=== PATIENT | female | born 1940 | race Caucasian/White ===

== ENCOUNTER → 2016-09-26 | Outpatient (CLI) | payer MEDICARE ==
--- NOTE | 2016-09-26 10:27 | US ---
EXAMINATION TYPE: US pelvis complete transvag DATE OF EXAM: 09/26/2016 9:58 AM COMPARISON: CT abdomen pelvis 09/17/2015 CLINICAL HISTORY: tummy tuck 2011, pt loss 150 lbs, constipation TECHNIQUE: Transvaginal (TV) and Transabdominal (TA) Date of LMP: pt age 76 years ago, no EXAM MEASUREMENTS: Uterus: 5.7 x 5.0 x 3.9 cm Endometrial Stripe: 0.3 cm Right Ovary: 1.6 x 1.3 x 1.2 cm Left Ovary: not seen FINDINGS: 1. Uterus: large calcified mass left side , pedunculated fibroid or left adnexal mass 2.5 x 2.1 x 3.2 cm vascular 2. Endometrium: porions seen wnl 3. Right Ovary: wnl 4. Left Ovary: pedunculated fibroid or left adnexal mass 2.5 x 2.1 x 3.2 cm vascular 5. Bilateral Adnexa: rt wnl, left see above 6. Posterior cul-de-sac: 2.3 cm IMPRESSION: 1. Leiomyomatous change of the uterus. 2. Calcified mass in the region of the left adnexa is felt to reflect a partially calcified fibroid.
--- NOTE | 2016-09-26 10:36 | US ---
EXAMINATION TYPE: US abdomen complete DATE OF EXAM: 09/26/2016 10:09 AM COMPARISON: in PACS prior renal CLINICAL HISTORY: tummy tuck 2012. Pt loss 150 lbs naturally, constipation mid abd pain EXAM MEASUREMENTS: Liver Length: 14.4 cm Gallbladder Wall: surgically removed CBD: 0.3 cm Spleen: 7.0 cm Right Kidney: 9.3 x 4.5 x 4.6 cm Left Kidney: 10.0 x 5.5 x 4.1 cm bladder: marian jets seen post void wnl ANATOMY: TECHNOLOGIST IMPRESSION: overlying bowel gas Pancreas: overlying bowel gas , not seen Liver: portions seen wnl Gallbladder: surgically removed Evidence for sonographic Hernandez's sign: surgically removed CBD:wnl Spleen: wnl Right Kidney: no hydro seen small calculi 0.6 cm , 0.7 cm Left Kidney: no hydro seen, small calculi , 0.8 cm, 0.7 cm Upper IVC: overlying bowel gas portion seen wnl Abd Aorta: overlying bowel gas , not seen The liver is homogenous. The intrahepatic portion of the IVC and proximal abdominal aorta are within normal limits. The gallbladder is surgically absent . Common bile duct is unremarkable. The visua lized portions of the pancreas are homogenous. The spleen is unremarkable. Kidneys are symmetric an d free of hydronephrosis. No renal lesions are seen. Small bilateral renal calculi. IMPRESSION: 1. Small bilateral renal calculi without obstructive change
== END | disposition home or self-care (01) ==
LOC: RADUSWWP 09:16
PROVIDERS: ATTEND Family Medicine
DX: D25.9 Leiomyoma of uterus, unspecified (principal); N20.0 Calculus of kidney
CPT/HCPCS: 76700; 76830; 76856

== ENCOUNTER → 2016-10-18 | Outpatient (CLI) | payer MEDICARE ==
--- NOTE | 2016-10-19 11:15 | MM ---
Reason for exam: screening (asymptomatic). Last mammogram was performed 1 year and 1 month ago. History: Patient is postmenopausal, history of other cancer, and is nulliparous. Benign right mammotome panel of the right breast, August 14, 2011. Benign excisional biopsy of the left breast, 1980. Taking estrogen for 20 years beginning at age 51. Physical Findings: A clinical breast exam by your physician is recommended on an annual basis and results should be correlated with mammographic findings. MG 3D Screening Mammo W/Cad Bilateral CC and MLO view(s) were taken. Prior study comparison: September 16, 2015, bilateral MG 3d screening mammo w/cad. June 19, 2014, bilateral MG screening mammo w CAD. The breast tissue is extremely dense which could obscure a lesion on mammography. Finding: There are coarse heterogeneous, linear calcifications in the right breast, 6cm from the nipple, may be vascular. There are scattered vascular calcifications bilaterally. New finding since September 16, 2015 and June 19, 2014. ASSESSMENT: Probably benign, BI-RAD 3 RECOMMENDATION: Follow-up diagnostic mammogram of the right breast in 6 months.
== END | disposition home or self-care (01) ==
LOC: RADMAMWWP 14:46
PROVIDERS: ATTEND Family Medicine
DX: Z12.31 Encounter for screening mammogram for malignant neoplasm of breast (principal)
CPT/HCPCS: 77063; G0202

== ENCOUNTER → 2017-01-15 | Outpatient (CLI) | payer MEDICARE ==
--- NOTE | 2017-01-15 20:26 | MR ---
EXAMINATION TYPE: MR cervical spine wo con DATE OF EXAM: 01/15/2017 3:19 PM COMPARISON: NONE HISTORY: 76-year-old female CERVICAL DISK DEGENERATION, HEADACHES TECHNIQUE: Multiplanar, multisequence images of the cervical spine were acquired. FINDINGS: No craniocervical junction abnormality, predental space widening, or prevertebral soft tissue swellin g. There is reversal of the normal cervical lordosis centered at C4-C5 level but with preserved alignmen t. Moderate to advanced disc/endplate degenerative change from C4 through C7 levels with disc height los s, endplate irregularity, and disc osteophyte complex formation. Corresponding ligamentum flavum thickening and scattered uncovertebral joint and facet degenerative c hange. At C2-C3, there is left-sided facet degenerative change causing mild left neuroforaminal stenosis. No spinal canal stenosis. At C3-C4, there is bilateral facet degenerative change mildly narrowing the bilateral neuroforamina. No spinal canal stenosis. At C4-C5, there is broad-based disc osteophyte complex with ligamentum flavum thickening and uncovert ebral joint and facet degenerative change. Changes result in mild to moderate bilateral neuroforamina l stenosis with moderate spinal canal stenosis. There is abutment and flattening of both the dorsal a nd ventral cord and questionable increased cord signal only seen on the sagittal sequence. This is no t clearly confirmed on the axial sequence. Refer to sagittal image 6. At C5-C6, there is broad-based disc osteophyte complex with uncovertebral joint and facet degenerativ e change. This results in mild spinal canal stenosis with ventral abutment and flattening of the cord but no cord compression. There is moderate bilateral neuroforaminal stenosis. At C6-C7, posterior osteophytic ridging with uncovertebral joint and facet degenerative change. Talley es result in mild to moderate left and mild right neuroforaminal stenosis with mild spinal canal sten osis. At C7-T1, there is facet degenerative change without significant canal or foraminal stenosis. No prevertebral or paravertebral soft tissue abnormality seen. IMPRESSION: 1. 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 2. Combination of disc osteophyte complex and ligamentum flavum thickening causes moderate spinal can al stenosis at C4-C5 with abutment and flattening of both the dorsal and ventral cord. Questionable s light increased cord signal at this level is not clearly confirmed on the axial series. Correlate for any myelopathic symptoms. 3. Mild spinal canal stenoses at C5-C6 and C6-C7. 4. Variable mild and moderate neural foraminal stenoses as outlined above, greatest on both sides at C5-C6.
== END | disposition home or self-care (01) ==
LOC: RADMRIMAIN 14:35
PROVIDERS: ATTEND Internal Medicine Rheumatology
DX: M48.02 Spinal stenosis, cervical region (principal); M99.71 Connective tissue and disc stenosis of intervertebral foramina of cervical region; M47.812 Spondylosis without myelopathy or radiculopathy, cervical region; M24.28 Disorder of ligament, vertebrae
CPT/HCPCS: 72141

== ENCOUNTER → 2017-02-24 | Outpatient (CLI) | payer MEDICARE ==
--- NOTE | 2017-02-24 14:35 | MR ---
EXAMINATION TYPE: MR brain wo con DATE OF EXAM: 02/24/2017 COMPARISON: 08/18/2013 HISTORY: headache T1-weighted sagittal, T2, FLAIR, and diffusion axial, and T2 coronal coronal views of the brain are s ubmitted. There is no evidence of acute ischemia. [id number] degenerative change. Areas of abnormal signal involving the cate likely related to remote ischemia. Multiple and numerous areas of abnormal focal signal white matter bilaterally is again noted and alth ough nonspecific, is suggestive of remote microvascular ischemic disease. There is no mass effect. Changes of chronic sinusitis noted. Craniocervical junction maintained. Sella turcica has a normal appearance. No cerebellopontine angle mass. IMPRESSION: 1. No acute intracranial process. Degenerative and nonspecific white matter changes most typical heraclio te microvascular ischemia.
== END | disposition home or self-care (01) ==
LOC: RADMRIMAIN 13:47
PROVIDERS: ATTEND Psychiatry & Neurology Pain Medicine
DX: R90.82 White matter disease, unspecified (principal)
CPT/HCPCS: 70551

== ENCOUNTER 2017-02-25 08:51 | Emergency (ER) | payer MEDICARE ==
[2017-02-25 08:55] VITALS: TEMP 97.6
[2017-02-25] MEDS ORDERED: SODIUM CHLORIDE 0.9% 1,000 ML IV STA (10:22)
[2017-02-25] MEDS ORDERED: RX INFO: IV CONTRAST WAS GIVEN 1 EACH MISC MISCELLANE PRN (10:22)
[2017-02-25] MEDS ORDERED: MORPHINE SULFATE 4 MG/ML SYRINGE IVP STA (10:22)
--- NOTE | 2017-02-25 10:29 | ED ---
Abdominal Pain HPI - General Chief Complaint: Abdominal Pain Stated Complaint: cramping,constipated Time Seen by Provider: 02/25/17 10:14 Source: patient Mode of arrival: ambulatory Limitations: no limitations - History of Present Illness Initial Comments: Patient is a 76yo female with long history of abd pain and constipation worsening over the past week. Patient has been trying suppositories as well as stool softeners. Today she had a small hard bowel movement. Patient is having lower abdominal pain for which she is taking [place]. Patient admits to abdominal pain, constipation, dysuria. Patient denies fever or chills. Denies nausea or vomiting. - Related Data Home Medications Medication Instructions Recorded Confirmed Aspirin 81 mg PO DAILY 01/06/15 02/25/17 Butalb/Acetaminophen/Caffeine 1 tab PO BID PRN 01/06/15 02/25/17 [Fioricet 50-325-40] Dicyclomine [Bentyl] 10 mg PO QID 01/06/15 02/25/17 Folic Acid 1 mg PO DAILY 01/06/15 02/25/17 HYDROcodone/APAP 5-325MG [[place] 1 tab PO TID PRN 01/06/15 02/25/17 5-325] Hypromellose [Artificial Tears] 1 drop BOTH EYES DAILY PRN 01/06/15 02/25/17 Methotrexate Sodium [Methotrexate] 20 mg PO FR 01/06/15 02/25/17 Multivitamin/Iron/Folic Acid 1 tab PO DAILY 01/06/15 02/25/17 [Centrum Complete Multivit Tab] Omeprazole [PriLOSEC] 40 mg PO DAILY 01/06/15 02/25/17 PARoxetine [Paxil] 20 mg PO QAM 01/06/15 02/25/17 Topiramate [Topamax] 150 mg PO DAILY 01/06/15 02/25/17 Certolizumab Pegol [Cimzia] 400 mg SQ QMONTH 09/17/15 02/25/17 rOPINIRole HCL [Requip] 0.5 mg PO DAILY 09/17/15 02/25/17 Previous Rx's Medication Instructions Recorded Baclofen [Lioresal] 10 mg PO TID PRN #0 01/11/15 Allergies Allergy/AdvReac Type Severity Reaction Status Date / Time etodolac [From [facility]] Allergy Rash/Hives Verified 02/25/17 09:39 nabumetone [From Relafen] Allergy Rash/Hives Verified 02/25/17 09:39 naproxen [From Naprosyn] Allergy Rash/Hives Verified 02/25/17 09:39 NSAIDS (Non-Steroidal Allergy Unknown Verified 02/25/17 09:39 Anti-Inflamma Review of Systems ROS Statement: Those systems with pertinent positive or pertinent negative responses have been documented in the HPI. Constitutional: No fever and no chills. HENT: No congestion, no rhinorrhea and no sore throat. Eyes: No discharge and no redness. Respiratory: No cough and no shortness of breath. Cardiovascular: No chest pain and no palpitations. Gastrointestinal: No nausea, no vomiting, +abdominal pain, + constipation and no diarrhea. Genitourinary: +dysuria and no hematuria. Musculoskeletal: No back pain and no arthralgias. Skin: No pallor and no rash. Neurological: No dizziness and No headaches. ROS Other: All systems not noted in ROS Statement are negative. Past Medical History Past Medical History: Osteoarthritis (OA), Pneumonia, Rheumatoid Arthritis (RA) Additional Past Medical History / Comment(s): 09/17/15 Pt presented to [facility] ER with abdominal pain which has been going on for several months and being investigated. Abdomonal jaylin got worse last nite and woke her up. She also has mild nausea. Her last BM was yesterday and she is constipated. She is admitted with clinical impression of calculus of the kidney, SBO, pancreatic mass. Other HX: 01/05/15 admitted to [facility] with pericardial effusions- possible pleurisy-possible pneumonia, admitted to [facility] 02/26/14 with acute abdominal pain-2ndary to possible gallstone pancreatitis-SBO, IBS, RESTLESS LEG SYNDROME, stress headaches (none recently with medication), UTIs, pt states she had a staph infection in her blood in 1999 but does not know if it was MRSA. History of Any Multi-Drug Resistant Organisms: Unobtainable Past Surgical History: Cholecystectomy, Joint Replacement, Orthopedic Surgery Additional Past Surgical History / Comment(s): Additional Surgical Hx: Rotator cuff (R); Ric Knee Replacement; Panniculectomy, bilateral legs varicose vein surgery, colonoscopies-normal, bilateral cataract removal. Past Anesthesia/Blood Transfusion Reactions: No Reported Reaction Additional Past Anesthesia/Blood Transfusion Reaction / Comment(s): Pt has received blood after panniculectomy without reaction. Past Psychological History: Depression Smoking Status: Never smoker Past Alcohol Use History: None Reported Past Drug Use History: None Reported - Past Family History Mother Family Medical History: Myocardial Infarction (WA) Additional Family Medical History / Comment(s): Mother at age 69 yrs after having the flu and complicated by a [place]. Father Additional Family Medical History / Comment(s): IBS. Father at age 78yrs. General Exam - General Exam Comments Initial Comments: Constitutional: Patient appears well-developed and well-nourished. No distress. Head: Normocephalic and atraumatic. Eyes: Conjunctivae and EOM are normal. Right eye exhibits no discharge. Left eye exhibits no discharge. No scleral icterus. Neck: Normal range of motion. Neck supple. Cardiovascular: Normal rate and regular rhythm. No murmur heard. Pulmonary/Chest: Effort normal and breath sounds normal. No respiratory distress. No wheezes. Abdominal: Soft. No distension. Diffuse lower abdominal tenderness. There is no rebound and no guarding. Rectal vault without impacted stool. Musculoskeletal: Normal range of motion. No edema or tenderness. Neurological: Patient alert and oriented to person, place, and time. Skin: Skin is warm and dry. Not diaphoretic. Nursing notes and vitals reviewed. Limitations: no limitations Course Vital Signs 02/25/17 02/25/17 02/25/17 08:52 10:44 12:40 Temperature 97.6 F Pulse Rate 65 59 L 67 Respiratory 18 18 16 Rate Blood Pressure 130/62 150/69 127/58 O2 Sat by Pulse 99 100 96 Oximetry - Reevaluation(s) Reevaluation #1: 02/25/17 12:09 Patient is doing much better resting comfortably in bed. Abdomen remains tender in the suprapubic region. Patient updated on laboratory results. CT pending. Dr. Wilkinson calling to check on her patient. Medical Decision Making - Medical Decision Making Patient is a 76-year-old female presenting with chronic constipation and abdominal pain issues. Patient had a hard bowel movement this morning with a normal rectal exam. Abdomen was mildly tender suprapubic. CBC, BMP, magnesium , UA unremarkable. Patient saw her surgeon and number emergency department who agrees concern for opiate-induced abdominal pain/constipation. CT shows concern for hiatal hernia as well as pancreatic mass. CT report was printed out and disclosed the patient. They are aware of the pancreatic mass and will follow up outpatient. Patient surgeon Dr. Wilkinson recommends molasses enema when necessary. Prior to discharge, patient was resting comfortably in bed. Course of stay improved. Abdomen soft nontender. Denies pain. Discussed physical exam and diagnostic tests with patient. Questions answered and patient is agreeable to discharge with close follow up with Primary Care Physician. Instructed to return to Emergency Department if symptoms worsen. - Lab Data Result diagrams: 02/25/17 10:40 02/25/17 10:40 Lab Results 02/25/17 02/25/17 02/25/17 Range/Units 10:40 10:40 10:40 WBC 5.0 (3.8-10.6) k/uL RBC 3.83 (3.80-5.40) m/uL Hgb 13.0 (11.4-16.0) gm/dL Hct 39.3 (34.0-46.0) % MCV 102.6 H (80.0-100.0) fL MCH 33.9 (25.0-35.0) pg MCHC 33.1 (31.0-37.0) g/dL RDW 13.4 (11.5-15.5) % Plt Count 179 (150-450) k/uL Neutrophils % 54 % Lymphocytes % 35 % Monocytes % 5 % Eosinophils % 2 % Basophils % 1 % Neutrophils # 2.7 (1.3-7.7) k/uL Lymphocytes # 1.7 (1.0-4.8) k/uL Monocytes # 0.3 (0-1.0) k/uL Eosinophils # 0.1 (0-0.7) k/uL Basophils # 0.0 (0-0.2) k/uL Macrocytosis Slight Sodium 142 (137-145) mmol/L Potassium 4.2 (3.5-5.1) mmol/L Chloride 108 H (98-107) mmol/L Carbon Dioxide 25 (22-30) mmol/L Anion Gap 9 mmol/L BUN 22 H (7-17) mg/dL Creatinine 0.70 (0.52-1.04) mg/dL Est GFR (MDRD) Af Amer >60 (>60 ml/min/1.73 sqM) Est GFR (MDRD) Non-Af >60 (>60 ml/min/1.73 sqM) Glucose 89 (74-99) mg/dL Plasma Lactic Acid Hebert 0.9 (0.7-2.0) mmol/L Calcium 9.4 (8.4-10.2) mg/dL Magnesium 2.1 (1.6-2.3) mg/dL Urine Color Urine Appearance (Clear) Urine pH (5.0-8.0) Ur Specific [place] (1.001-1.035) Urine Protein (Negative) Urine Glucose (UA) (Negative) Urine Ketones (Negative) Urine Blood (Negative) Urine Nitrite (Negative) Urine Bilirubin (Negative) Urine Urobilinogen (<2.0) mg/dL Ur Leukocyte Esterase (Negative) Urine RBC (0-5) /hpf Urine WBC (0-5) /hpf Ur Squamous Epith Cells (0-4) /hpf Amorphous Sediment (None) /hpf 02/25/17 Range/Units 10:40 WBC (3.8-10.6) k/uL RBC (3.80-5.40) m/uL Hgb (11.4-16.0) gm/dL Hct (34.0-46.0) % MCV (80.0-100.0) fL MCH (25.0-35.0) pg MCHC (31.0-37.0) g/dL RDW (11.5-15.5) % Plt Count (150-450) k/uL Neutrophils % % Lymphocytes % % Monocytes % % Eosinophils % % Basophils % % Neutrophils # (1.3-7.7) k/uL Lymphocytes # (1.0-4.8) k/uL Monocytes # (0-1.0) k/uL Eosinophils # (0-0.7) k/uL Basophils # (0-0.2) k/uL Macrocytosis Sodium (137-145) mmol/L Potassium (3.5-5.1) mmol/L Chloride (98-107) mmol/L Carbon Dioxide (22-30) mmol/L Anion Gap mmol/L BUN (7-17) mg/dL Creatinine (0.52-1.04) mg/dL Est GFR (MDRD) Af Amer (>60 ml/min/1.73 sqM) Est GFR (MDRD) Non-Af (>60 ml/min/1.73 sqM) Glucose (74-99) mg/dL Plasma Lactic Acid Hebert (0.7-2.0) mmol/L Calcium (8.4-10.2) mg/dL Magnesium (1.6-2.3) mg/dL Urine Color Yellow Urine Appearance Clear (Clear) Urine pH 7.0 (5.0-8.0) Ur Specific [place] 1.014 (1.001-1.035) Urine Protein Negative (Negative) Urine Glucose (UA) Negative (Negative) Urine Ketones Negative (Negative) Urine Blood Negative (Negative) Urine Nitrite Negative (Negative) Urine Bilirubin Negative (Negative) Urine Urobilinogen <2.0 (<2.0) mg/dL Ur Leukocyte Esterase Trace H (Negative) Urine RBC 1 (0-5) /hpf Urine WBC 3 (0-5) /hpf Ur Squamous Epith Cells <1 (0-4) /hpf Amorphous Sediment Rare H (None) /hpf Disposition Clinical Impression: Constipation, Pancreatic mass, Abdominal pain, Hiatal hernia Disposition: HOME SELF-CARE Condition: Good Instructions: Hiatal Hernia (ED), Constipation (ED), Abdominal Pain (ED) Referrals: Martinez Chatman MD [Primary Care Provider] - 1-2 days Teodora Wilkinson MD [STAFF PHYSICIAN] - 1-2 days
[2017-02-25 10:56] LABS: Basophils % (A) 1 %; CH 34.3; CHCM 33.6; Eosinophils # (A) 0.1 k/uL (0-0.7); Eosinophils % (A) 2 %; HCT 39.3 % (34.0-46.0); HDW 2.33; Luc # (Auto) 0.16; Luc % (Auto) 3; Lymphocytes # (A) 1.7 k/uL (1.0-4.8); Lymphocytes % (A) 35 %; MCH 33.9 pg (25.0-35.0); MCHC 33.1 g/dL (31.0-37.0); MCV 102.6 fL (80.0-100.0); Macrocytosis Slight; Mean Platelet Volume 6.8; Monocytes # (A) 0.3 k/uL (0-1.0); Monocytes % (A) 5 %; Neutrophils # (A) 2.7 k/uL (1.3-7.7); Neutrophils % (A) 54 %; RBC 3.83 m/uL (3.80-5.40); RDW 13.4 % (11.5-15.5); WBC (Perox) 5.28
[2017-02-25 10:59] LABS: Amorphous Sediment,Urine Rare /hpf; Appearance,Urine Clear (Clear); Bilirubin,Urine Negative (Negative); Glucose,Urine (UA) Negative (Negative); Ketones,Urine Negative (Negative); Leukocyte Esterase,Urine Trace (Negative); Nitrite,Urine Negative (Negative); Particle Count 2702; Protein,Urine Negative (Negative); RBC,Urine 1 /hpf (0-5); Specific Gravity,Urine 1.014 (1.001-1.035); Squamous Epithelial Cell,Urine <1 /hpf (0-4); UA Billing (MACRO vs. MICRO) MICRO; Urobilinogen,Urine <2.0 mg/dL (<2.0); WBC,Urine 3 /hpf (0-5)
[2017-02-25 11:06] LABS: Anion Gap 9 mmol/L; Blood Urea Nitrogen 22 mg/dL (7-17); Calcium 9.4 mg/dL (8.4-10.2); Carbon Dioxide 25 mmol/L (22-30); Chloride 108 mmol/L (98-107); Glucose 89 mg/dL (74-99); Magnesium 2.1 mg/dL (1.6-2.3); Non-African American GFR(MDRD) >60 (>60 ml/min/1.73 sqM); Potassium 4.2 mmol/L (3.5-5.1); Sodium 142 mmol/L (137-145)
--- NOTE | 2017-02-25 13:22 | CT ---
EXAMINATION TYPE: CT abdomen pelvis w con DATE OF EXAM: 02/25/2017 COMPARISON: 09/17/2015 INDICATION: cramping, mid abd pain, constipation DLP: 411.4 mGycm, Automated exposure control for dose reduction was used. CONTRAST: 100 mL of Omnipaque 300. Study performed without Oral Contrast TECHNIQUE: Axial images were obtained from above the diaphragm to the pubic rami in the axial plane a t 5 mm thick sections. Reconstructed images are reviewed on the computer in the coronal plane. FINDINGS: Limited CT sections are obtained the lung bases. The lung bases are clear. Small hiatal hernia is p resent. CT ABDOMEN: Liver: There may be a 0.9 cm cyst in the medial right lobe liver. Liver otherwise appears unremarkabl e. Spleen: Normal Pancreas: Mid body of the pancreas appears hypodense and measures 1.7 x 3.2 cm in size. The pancreati c duct extending towards this level is dilated at 0.5 cm. Normal less than 0.2 cm at this level. Head of the pancreas appears normal. The common bile duct is prominent measuring 1.2 cm in size. There is a postcholecystectomy, normal for the common bile duct is 1.0 cm. Adrenal glands: The adrenal glands are normal. Gallbladder: Surgically absent Kidneys: No masses are evident. No hydronephrosis is present. No cysts are present. 0.4 cm calcifi cation without obstruction is in the superior medial left kidney. A punctate calcifications in the mi d lateral left kidney. There is a nonobstructing inferior pole left renal calcification measuring 0.8 cm. A nonobstructing 0.5 cm calcifications at the posterior lateral mid right kidney. Punctate calci fication at the inferior pole right kidney. Aorta: Vascular calcification is within the aorta. Inferior vena cava: Normal. CT PELVIS: Loops of bowel within the abdomen and pelvis are normal. There are loops of bowel which are incom pletely distended or lack oral contrast limiting their evaluation. Appendix: Normal as visualized. Urinary bladder: Normal. Genitourinary structures: Osseous structures: No suspicious lytic or sclerotic lesions. IMPRESSIONS: 1. Hypodense area within the body of the pancreas with some dilated distal body and proximal tail burrell creas not suggest an underlying mass. However, this was present on the comparison 09/17/2015 with possi ble mild interval growth. Workup for possible pancreatic cancer is recommended. 2. Multiple bilateral nonobstructing renal stones. 3. Small hiatal hernia.
[2017-02-25 13:28] VITALS: RESP 16
[2017-02-25 15:25] VITALS: BP 150/63; PULSE 68
--- NOTE | 2017-02-25 16:05 | P.PN ---
Progress Note - Text Patient seen and evaluated. Patient well-known to me. She has history of opiate-induced constipation. Recommend milk of molasses enemas. Additionally, alternatives for constipation treatment and literature is dispensed.
--- NOTE | 2017-02-25 21:47 | P.GSCN ---
History of Present Illness Consult date: 02/25/17 Reason for Consult: Abdominal pain Requesting physician: Elie Diana History of present illness: The patient is a 76-year-old female well-known to me who presents with history of acute on chronic abdominal pain secondary to constipation. Her is at bedside. She is having increasing bouts of diarrhea or constipation. She takes chronic narcotics for fibromyalgia and diffuse osteoarthritic pain. She has not been started on any opiate induced anticonstipation medications. She complains primarily of bilateral lower abdominal pain. She is passing flatus. No reports of abdominal distention. Secondary to the severity of her abdominal pain, she presents to emergency room. Her reports that she gets enemas regularly. The patient has also been very successful weight loss patient maintaining over 100+ pound weight loss in the past 5 years. Review of Systems CONSTITUTIONAL: Denies any fever or chills. HEENT: Denies any trouble with vision, hearing or nosebleeds. No difficulty swallowing. LYMPHATIC: The patient denies any lumps and bumps around the neck. ENDOCRINE: Denies any thyroid disorders. Denies any blood sugar glucose intolerance. RESPIRATORY: Denies recent pneumonia. Has occassional troubles with breathing or dyspnea on exertion. CARDIOVASCULAR: No acute chest pain or recent heart attacks. GASTROINTESTINAL: Has heart burn, constipation. No recent bright red blood per rectum. GENITOURINARY: Has occassional increased urinary frequency. MUSCULOSKELETAL: Has back pain, stiffness, joint arthritis. NEUROLOGIC: No seizure disorders or headaches. PSYCHIATRIC: Denies depression or suidical ideation. HEMATOLOGIC: Denies any abnormal bleeding or bruising. Past Medical History Past Medical History: Osteoarthritis (OA), Pneumonia, Rheumatoid Arthritis (RA) Additional Past Medical History / Comment(s): 09/17/15 Pt presented to [facility] ER with abdominal pain which has been going on for several months and being investigated. Abdomonal jaylin got worse last nite and woke her up. She also has mild nausea. Her last BM was yesterday and she is constipated. She is admitted with clinical impression of calculus of the kidney, SBO, pancreatic mass. Other HX: 01/05/15 admitted to [facility] with pericardial effusions- possible pleurisy-possible pneumonia, admitted to [facility] 02/26/14 with acute abdominal pain-2ndary to possible gallstone pancreatitis-SBO, IBS, RESTLESS LEG SYNDROME, stress headaches (none recently with medication), UTIs, pt states she had a staph infection in her blood in 1999 but does not know if it was MRSA. History of Any Multi-Drug Resistant Organisms: Unobtainable Past Surgical History: Cholecystectomy, Joint Replacement, Orthopedic Surgery Additional Past Surgical History / Comment(s): Additional Surgical Hx: Rotator cuff (R); Ric Knee Replacement; Panniculectomy, bilateral legs varicose vein surgery, colonoscopies-normal, bilateral cataract removal. Past Anesthesia/Blood Transfusion Reactions: No Reported Reaction Additional Past Anesthesia/Blood Transfusion Reaction / Comm: Pt has received blood after panniculectomy without reaction. Past Psychological History: Depression Smoking Status: Never smoker Past Alcohol Use History: None Reported Past Drug Use History: None Reported - Past Family History Mother Family Medical History: Myocardial Infarction ([place]) Additional Family Medical History / Comment(s): Mother at age 69 yrs after having the flu and complicated by a [place]. Father Additional Family Medical History / Comment(s): IBS. Father at age 78yrs. Medications and Allergies Home Medications Medication Instructions Recorded Confirmed Type Aspirin 81 mg PO DAILY 01/06/15 02/25/17 History Butalb/Acetaminophen/Caffeine 1 tab PO BID PRN 01/06/15 02/25/17 History [Fioricet 50-325-40] Dicyclomine [Bentyl] 10 mg PO QID 01/06/15 02/25/17 History Folic Acid 1 mg PO DAILY 01/06/15 02/25/17 History HYDROcodone/APAP 5-325MG [[place] 1 tab PO TID PRN 01/06/15 02/25/17 History 5-325] Hypromellose [Artificial Tears] 1 drop BOTH EYES DAILY PRN 01/06/15 02/25/17 History Methotrexate Sodium [Methotrexate] 20 mg PO FR 01/06/15 02/25/17 History Multivitamin/Iron/Folic Acid 1 tab PO DAILY 01/06/15 02/25/17 History [Centrum Complete Multivit Tab] Omeprazole [PriLOSEC] 40 mg PO DAILY 01/06/15 02/25/17 History PARoxetine [Paxil] 20 mg PO QAM 01/06/15 02/25/17 History Topiramate [Topamax] 150 mg PO DAILY 01/06/15 02/25/17 History Certolizumab Pegol [Cimzia] 400 mg SQ QMONTH 09/17/15 02/25/17 History rOPINIRole HCL [Requip] 0.5 mg PO DAILY 09/17/15 02/25/17 History Allergies Allergy/AdvReac Type Severity Reaction Status Date / Time etodolac [From Lodine] Allergy Rash/Hives Verified 02/25/17 09:39 nabumetone [From Relafen] Allergy Rash/Hives Verified 02/25/17 09:39 naproxen [From Naprosyn] Allergy Rash/Hives Verified 02/25/17 09:39 NSAIDS (Non-Steroidal Allergy Unknown Verified 02/25/17 09:39 Anti-Inflamma Surgical - Exam Vital Signs Temp Pulse Resp BP Pulse Ox 97.6 F 65 18 130/62 99 02/25/17 08:52 02/25/17 08:52 02/25/17 08:52 02/25/17 08:52 02/25/17 08:52 GENERAL: Well developed and in no acute distress. Pleasant. HEENT: No sclera icterus. Extraocular movements grossly intact. Moist buccal mucosa. Head is atraumatic, normocephalic. Hears conversational speech. No nasal drainage. NECK: Supple without lymphadenopathy. No JV distention. CHEST: Non-labored respirations and equal bilateral excursions. CARDIOVASCULAR: Regular rate and rhythm. Palpable 2+ radial pulses. ABDOMEN: Soft. Nondistended. Mild tenderness along the bilateral lower abdomen. No peritonitis. MUSCULOSKELETAL: No clubbing, cyanosis or edema. NEUROLOGIC: No focal or lateralizing signs. PSYCH: Appropriate affect. Alert and oriented to person, place and time. Results - Labs 02/25/17 10:40 02/25/17 10:40 Abnormal Lab Results - Last 24 Hours (Table) 02/25/17 02/25/17 02/25/17 Range/Units 10:40 10:40 10:40 MCV 102.6 H (80.0-100.0) fL Chloride 108 H (98-107) mmol/L BUN 22 H (7-17) mg/dL Ur Leukocyte Esterase Trace H (Negative) Amorphous Sediment Rare H (None) /hpf Diabetes panel 02/25/17 Range/Units 10:40 Sodium 142 (137-145) mmol/L Potassium 4.2 (3.5-5.1) mmol/L Chloride 108 H (98-107) mmol/L Carbon Dioxide 25 (22-30) mmol/L BUN 22 H (7-17) mg/dL Creatinine 0.70 (0.52-1.04) mg/dL Glucose 89 (74-99) mg/dL Calcium 9.4 (8.4-10.2) mg/dL Calcium panel 02/25/17 Range/Units 10:40 Calcium 9.4 (8.4-10.2) mg/dL Pituitary panel 02/25/17 Range/Units 10:40 Sodium 142 (137-145) mmol/L Potassium 4.2 (3.5-5.1) mmol/L Chloride 108 H (98-107) mmol/L Carbon Dioxide 25 (22-30) mmol/L BUN 22 H (7-17) mg/dL Creatinine 0.70 (0.52-1.04) mg/dL Glucose 89 (74-99) mg/dL Calcium 9.4 (8.4-10.2) mg/dL Adrenal panel 02/25/17 Range/Units 10:40 Sodium 142 (137-145) mmol/L Potassium 4.2 (3.5-5.1) mmol/L Chloride 108 H (98-107) mmol/L Carbon Dioxide 25 (22-30) mmol/L BUN 22 H (7-17) mg/dL Creatinine 0.70 (0.52-1.04) mg/dL Glucose 89 (74-99) mg/dL Calcium 9.4 (8.4-10.2) mg/dL - Imaging CT scan - abdomen: report reviewed, image reviewed CT scan - pelvis: report reviewed, image reviewed (No obstruction. No free air. ) Assessment and Plan (1) Therapeutic opioid induced constipation Status: Acute (2) Pancreatic lesion Status: Acute (3) Abdominal pain Status: Acute (4) Constipation Status: Acute Plan: 1. Clinical exam is consistent with chronic induced opiate constipation. She will best benefit from medication which can counteract this type of constipation. 2. Recommend molasses enema. 3. Instructions for her chronic constipation including medications and enemas were discussed. 4. She has findings on her computed tomography scan of her pancreas, she will need further workup as an outpatient. Time with Patient: Greater than 30
== END 2017-02-25 15:41 | disposition home or self-care (01) ==
LOC: EC 08:51
DX: K44.9 Diaphragmatic hernia without obstruction or gangrene (principal); K86.89 Other specified diseases of pancreas; K59.00 Constipation, unspecified; R30.0 Dysuria; F32.9 Major depressive disorder, single episode, unspecified; K58.9 Irritable bowel syndrome, unspecified; M06.9 Rheumatoid arthritis, unspecified; G25.81 Restless legs syndrome; Z79.82 Long term (current) use of aspirin; Z79.899 Other long term (current) drug therapy; Z88.6 Allergy status to analgesic agent; Z88.8 Allergy status to other drugs, medicaments and biological substances; Z90.49 Acquired absence of other specified parts of digestive tract
CPT/HCPCS: 99284; 96374; 96361; 36415; 80048; 83605; 83735; 85025; 81001; 87086; 74177; J2270; Q9967; 87077; 87186

== ENCOUNTER 2018-05-06 03:37 | Inpatient (IN) | payer MEDICARE ==
[2018-05-06 03:59] LABS: Glucose,Whole Blood 99 mg/dL (75-99)
[2018-05-06] MEDS ORDERED: SODIUM CHLORIDE 0.9% 500 ML IV ONE ×2 (04:02→09:44)
--- NOTE | 2018-05-06 04:05 | ED ---
General Adult HPI - General Stated complaint: weakness,hallucinations Time Seen by Provider: 05/06/18 03:45 Source: patient, family, RN notes reviewed, old records reviewed - History of Present Illness Initial comments: 78-year-old female presented for evaluation of confusion. Patient is accompanied by her who states that over the past 1-2 weeks she's had some intermittent confusion as well as an unsteady gait. She did have a fall approximately 4 days ago with head trauma. On this occasion the patient was confused, she had not slept. Today she is alert and oriented time my evaluation. Prior to arrival she had an episode where she was hallucinating or confused and thought she was having her hair cut. This was at approximately 3 AM. Denies headache. Denies focal numbness or weakness. She has had some mild lower abdominal pain. No dysuria. No fever or chills. No chest pain. No cough or difficulty breathing. - Related Data Home Medications Medication Instructions Recorded Confirmed Aspirin 81 mg PO DAILY 01/06/15 02/25/17 Butalb/Acetaminophen/Caffeine 1 tab PO BID PRN 01/06/15 02/25/17 [Fioricet 50-325-40] Dicyclomine [Bentyl] 10 mg PO QID 01/06/15 02/25/17 Folic Acid 1 mg PO DAILY 01/06/15 02/25/17 HYDROcodone/APAP 5-325MG [[place] 1 tab PO TID PRN 01/06/15 02/25/17 5-325] Hypromellose [Artificial Tears] 1 drop BOTH EYES DAILY PRN 01/06/15 02/25/17 Methotrexate Sodium [Methotrexate] 20 mg PO FR 01/06/15 02/25/17 Multivitamin/Iron/Folic Acid 1 tab PO DAILY 01/06/15 02/25/17 [Centrum Complete Multivit Tab] Omeprazole [PriLOSEC] 40 mg PO DAILY 01/06/15 02/25/17 PARoxetine [Paxil] 20 mg PO QAM 01/06/15 02/25/17 Topiramate [Topamax] 150 mg PO DAILY 01/06/15 02/25/17 Certolizumab Pegol [Cimzia] 400 mg SQ QMONTH 09/17/15 02/25/17 rOPINIRole HCL [Requip] 0.5 mg PO DAILY 09/17/15 02/25/17 Previous Rx's Medication Instructions Recorded Baclofen [Lioresal] 10 mg PO TID PRN #0 01/11/15 Allergies Allergy/AdvReac Type Severity Reaction Status Date / Time etodolac [From Lodine] Allergy Rash/Hives Verified 02/25/17 09:39 nabumetone [From Relafen] Allergy Rash/Hives Verified 02/25/17 09:39 naproxen [From Naprosyn] Allergy Rash/Hives Verified 02/25/17 09:39 NSAIDS (Non-Steroidal Allergy Unknown Verified 02/25/17 09:39 Anti-Inflamma Review of Systems ROS Statement: Those systems with pertinent positive or pertinent negative responses have been documented in the HPI. ROS Other: All systems not noted in ROS Statement are negative. Past Medical History Past Medical History: Osteoarthritis (OA), Pneumonia, Rheumatoid Arthritis (RA) Additional Past Medical History / Comment(s): 09/17/15 Pt presented to [facility] ER with abdominal pain which has been going on for several months and being investigated. Abdomonal jaylin got worse last nite and woke her up. She also has mild nausea. Her last BM was yesterday and she is constipated. She is admitted with clinical impression of calculus of the kidney, SBO, pancreatic mass. Other HX: 01/05/15 admitted to [facility] with pericardial effusions- possible pleurisy-possible pneumonia, admitted to [facility] 02/26/14 with acute abdominal pain-2ndary to possible gallstone pancreatitis-SBO, IBS, RESTLESS LEG SYNDROME, stress headaches (none recently with medication), UTIs, pt states she had a staph infection in her blood in 1999 but does not know if it was MRSA. History of Any Multi-Drug Resistant Organisms: Unobtainable Past Surgical History: Cholecystectomy, Joint Replacement, Orthopedic Surgery Additional Past Surgical History / Comment(s): Additional Surgical Hx: Rotator cuff (R); Ric Knee Replacement; Panniculectomy, bilateral legs varicose vein surgery, colonoscopies-normal, bilateral cataract removal. Past Anesthesia/Blood Transfusion Reactions: No Reported Reaction Additional Past Anesthesia/Blood Transfusion Reaction / Comment(s): Pt has received blood after panniculectomy without reaction. Past Psychological History: Depression Smoking Status: Never smoker Past Alcohol Use History: None Reported Past Drug Use History: None Reported - Past Family History Mother Family Medical History: Myocardial Infarction ([place]) Additional Family Medical History / Comment(s): Mother at age 69 yrs after having the flu and complicated by a [place]. Father Additional Family Medical History / Comment(s): IBS. Father at age 78yrs. General Exam General appearance: alert, in no apparent distress Head exam: Present: normocephalic. Absent: atraumatic (Ecchymosis on the right temporal) Eye exam: Present: normal appearance, PERRL ENT exam: Present: normal exam Neck exam: Present: normal inspection. Absent: tenderness, meningismus Respiratory exam: Present: normal lung sounds bilaterally. Absent: respiratory distress, wheezes Cardiovascular Exam: Present: regular rate, normal rhythm GI/Abdominal exam: Present: soft. Absent: distended, tenderness, guarding Extremities exam: Present: normal inspection, normal capillary refill. Absent: pedal edema Back exam: Present: normal inspection Neurological exam: Present: alert, oriented X3, CN II-XII intact, other (NIH 0) . Absent: motor sensory deficit Psychiatric exam: Present: normal affect, normal mood Skin exam: Present: warm, dry, intact. Absent: cyanosis, diaphoretic Course Vital Signs 05/06/18 05/06/18 05/06/18 03:50 04:05 04:19 Temperature 97.6 F 98.0 F 98.2 F Pulse Rate 58 L 58 L 78 Respiratory 18 14 20 Rate Blood Pressure 172/78 162/72 153/72 O2 Sat by Pulse 100 99 Oximetry 05/06/18 05/06/18 05/06/18 04:35 06:07 06:25 Temperature 97.8 F Pulse Rate 56 L 59 L 58 L Respiratory 14 18 16 Rate Blood Pressure 144/66 145/67 153/69 O2 Sat by Pulse 100 100 100 Oximetry EKG Findings - EKG Comments: EKG Findings:: EKG: Sinus bradycardia with first-degree AV block, rate of 58, FL interval 300, QRS duration 146, QTC 441, there is right bundle branch block no ST segment elevation Medical Decision Making - Medical Decision Making 78-year-old female with progressive worsening of her mental status and confusion as well as multiple falls. Workup in the emergency Department: Head CT negative for intracranial hemorrhage or mass effect. Chest x-ray negative for focal pneumonia. X-ray of the abdomen is obtained for history of constipation as well some mild suprapubic tenderness to palpation, this shows a large amount of retained stool, no intraperitoneal free air or obstruction. Laboratory studies reveal normal white blood cell count, stable hemoglobin, creatinine 1.2 from baseline of 0.8, may reflect some dehydration. Urinalysis revealing greater than 182 red cells and 32 white cells, this may represent some UTI. Urine culture is pending, patient placed on empiric antibiotics. Patient will be admitted with neurology on consult. - Lab Data Result diagrams: 05/06/18 03:51 05/06/18 03:51 Lab Results 05/06/18 05/06/18 05/06/18 Range/Units 03:51 03:51 03:51 WBC 7.0 (3.8-10.6) k/uL RBC 3.31 L (3.80-5.40) m/uL Hgb 11.3 L (11.4-16.0) gm/dL Hct 34.1 (34.0-46.0) % MCV 103.0 H (80.0-100.0) fL MCH 34.2 (25.0-35.0) pg MCHC 33.2 (31.0-37.0) g/dL RDW 13.4 (11.5-15.5) % Plt Count 177 (150-450) k/uL Neutrophils % 56 % Lymphocytes % 29 % Monocytes % 8 % Eosinophils % 4 % Basophils % 0 % Neutrophils # 3.9 (1.3-7.7) k/uL Lymphocytes # 2.0 (1.0-4.8) k/uL Monocytes # 0.6 (0-1.0) k/uL Eosinophils # 0.3 (0-0.7) k/uL Basophils # 0.0 (0-0.2) k/uL Macrocytosis Slight PT (9.0-12.0) sec INR (<1.2) APTT (22.0-30.0) sec Sample Site ABG pH (7.35-7.45) ABG pCO2 (35-45) mmHg ABG pO2 (83-108) mmHg ABG HCO3 (21-25) mmol/L ABG Total CO2 (19-24) mmol/L ABG O2 Saturation (94-97) % ABG Base Excess mmol/L Miah Test FiO2 % Sodium (137-145) mmol/L Potassium (3.5-5.1) mmol/L Chloride (98-107) mmol/L Carbon Dioxide (22-30) mmol/L Anion Gap mmol/L BUN (7-17) mg/dL Creatinine (0.52-1.04) mg/dL Est GFR (CKD-EPI)AfAm (>60 ml/min/1.73 sqM) Est GFR (CKD-EPI)NonAf (>60 ml/min/1.73 sqM) Glucose (74-99) mg/dL POC Glucose (mg/dL) 99 (75-99) mg/dL POC Glu Store Lead ID Mireille Winchester Calcium (8.4-10.2) mg/dL Total Bilirubin (0.2-1.3) mg/dL AST (14-36) U/L ALT (9-52) U/L Alkaline Phosphatase (38-126) U/L Total Creatine Kinase 71 (30-135) U/L CK-MB (CK-2) 1.3 (0.0-2.4) ng/mL CK-MB (CK-2) Rel Index 1.8 Troponin I <0.012 (0.000-0.034) ng/mL Total Protein (6.3-8.2) g/dL Albumin (3.5-5.0) g/dL Urine Color Urine Appearance (Clear) Urine pH (5.0-8.0) Ur Specific [place] (1.001-1.035) Urine Protein (Negative) Urine Glucose (UA) (Negative) Urine Ketones (Negative) Urine Blood (Negative) Urine Nitrite (Negative) Urine Bilirubin (Negative) Urine Urobilinogen (<2.0) mg/dL Ur Leukocyte Esterase (Negative) Urine RBC (0-5) /hpf Urine WBC (0-5) /hpf Hyaline Casts (0-2) /lpf 05/06/18 05/06/18 05/06/18 Range/Units 03:51 04:30 05:26 WBC (3.8-10.6) k/uL RBC (3.80-5.40) m/uL Hgb (11.4-16.0) gm/dL Hct (34.0-46.0) % MCV (80.0-100.0) fL MCH (25.0-35.0) pg MCHC (31.0-37.0) g/dL RDW (11.5-15.5) % Plt Count (150-450) k/uL Neutrophils % % Lymphocytes % % Monocytes % % Eosinophils % % Basophils % % Neutrophils # (1.3-7.7) k/uL Lymphocytes # (1.0-4.8) k/uL Monocytes # (0-1.0) k/uL Eosinophils # (0-0.7) k/uL Basophils # (0-0.2) k/uL Macrocytosis PT 10.0 (9.0-12.0) sec INR 1.0 (<1.2) APTT 21.2 L (22.0-30.0) sec Sample Site ABG pH (7.35-7.45) ABG pCO2 (35-45) mmHg ABG pO2 (83-108) mmHg ABG HCO3 (21-25) mmol/L ABG Total CO2 (19-24) mmol/L ABG O2 Saturation (94-97) % ABG Base Excess mmol/L Miah Test FiO2 % Sodium 141 (137-145) mmol/L Potassium 4.6 (3.5-5.1) mmol/L Chloride 110 H (98-107) mmol/L Carbon Dioxide 23 (22-30) mmol/L Anion Gap 8 mmol/L BUN 31 H (7-17) mg/dL Creatinine 1.20 H (0.52-1.04) mg/dL Est GFR (CKD-EPI)AfAm 51 (>60 ml/min/1.73 sqM) Est GFR (CKD-EPI)NonAf 44 (>60 ml/min/1.73 sqM) Glucose 93 (74-99) mg/dL POC Glucose (mg/dL) 95 (75-99) mg/dL POC Glu Store Lead ID Mireille Winchester Calcium 8.7 (8.4-10.2) mg/dL Total Bilirubin 0.5 (0.2-1.3) mg/dL AST 58 H (14-36) U/L ALT 43 (9-52) U/L Alkaline Phosphatase 77 (38-126) U/L Total Creatine Kinase (30-135) U/L CK-MB (CK-2) (0.0-2.4) ng/mL CK-MB (CK-2) Rel Index Troponin I (0.000-0.034) ng/mL Total Protein 6.5 (6.3-8.2) g/dL Albumin 3.7 (3.5-5.0) g/dL Urine Color Urine Appearance (Clear) Urine pH (5.0-8.0) Ur Specific [place] (1.001-1.035) Urine Protein (Negative) Urine Glucose (UA) (Negative) Urine Ketones (Negative) Urine Blood (Negative) Urine Nitrite (Negative) Urine Bilirubin (Negative) Urine Urobilinogen (<2.0) mg/dL Ur Leukocyte Esterase (Negative) Urine RBC (0-5) /hpf Urine WBC (0-5) /hpf Hyaline Casts (0-2) /lpf 05/06/18 05/06/18 Range/Units 05:32 06:00 WBC (3.8-10.6) k/uL RBC (3.80-5.40) m/uL Hgb (11.4-16.0) gm/dL Hct (34.0-46.0) % MCV (80.0-100.0) fL MCH (25.0-35.0) pg MCHC (31.0-37.0) g/dL RDW (11.5-15.5) % Plt Count (150-450) k/uL Neutrophils % % Lymphocytes % % Monocytes % % Eosinophils % % Basophils % % Neutrophils # (1.3-7.7) k/uL Lymphocytes # (1.0-4.8) k/uL Monocytes # (0-1.0) k/uL Eosinophils # (0-0.7) k/uL Basophils # (0-0.2) k/uL Macrocytosis PT (9.0-12.0) sec INR (<1.2) APTT (22.0-30.0) sec Sample Site Right Radial ABG pH 7.33 L (7.35-7.45) ABG pCO2 42 (35-45) mmHg ABG pO2 74 L (83-108) mmHg ABG HCO3 22 (21-25) mmol/L ABG Total CO2 23 (19-24) mmol/L ABG O2 Saturation 95.7 (94-97) % ABG Base Excess -3.8 mmol/L Miah Test Yes FiO2 28 % Sodium (137-145) mmol/L Potassium (3.5-5.1) mmol/L Chloride (98-107) mmol/L Carbon Dioxide (22-30) mmol/L Anion Gap mmol/L BUN (7-17) mg/dL Creatinine (0.52-1.04) mg/dL Est GFR (CKD-EPI)AfAm (>60 ml/min/1.73 sqM) Est GFR (CKD-EPI)NonAf (>60 ml/min/1.73 sqM) Glucose (74-99) mg/dL POC Glucose (mg/dL) (75-99) mg/dL POC Glu Store Lead ID Calcium (8.4-10.2) mg/dL Total Bilirubin (0.2-1.3) mg/dL AST (14-36) U/L ALT (9-52) U/L Alkaline Phosphatase (38-126) U/L Total Creatine Kinase (30-135) U/L CK-MB (CK-2) (0.0-2.4) ng/mL CK-MB (CK-2) Rel Index Troponin I (0.000-0.034) ng/mL Total Protein (6.3-8.2) g/dL Albumin (3.5-5.0) g/dL Urine Color Yellow Urine Appearance Cloudy H (Clear) Urine pH 6.5 (5.0-8.0) Ur Specific [place] 1.014 (1.001-1.035) Urine Protein 1+ H (Negative) Urine Glucose (UA) Negative (Negative) Urine Ketones Negative (Negative) Urine Blood Large H (Negative) Urine Nitrite Negative (Negative) Urine Bilirubin Negative (Negative) Urine Urobilinogen <2.0 (<2.0) mg/dL Ur Leukocyte Esterase Small H (Negative) Urine RBC >182 H (0-5) /hpf Urine WBC 32 H (0-5) /hpf Hyaline Casts 10 H (0-2) /lpf Disposition Clinical Impression: Altered mental status, UTI (urinary tract infection), Acute kidney injury Disposition: ADMITTED IP TO THIS HOSP Condition: Stable Is patient prescribed a controlled substance at d/c from ED?: No Referrals: Jh Garcia DO [Primary Care Provider] - 1-2 days Decision to Admit Reason: Admit from EC Decision Date: 05/06/18 Decision Time: 06:41
[2018-05-06 04:18] LABS: Basophils % (A) 0 %; Eosinophils # (A) 0.3 k/uL (0-0.7); Eosinophils % (A) 4 %; HCT 34.1 % (34.0-46.0); HGB 11.3 gm/dL (11.4-16.0); Lymphocytes % (A) 29 %; MCH 34.2 pg (25.0-35.0); MCHC 33.2 g/dL (31.0-37.0); Macrocytosis Slight; Monocytes # (A) 0.6 k/uL (0-1.0); Monocytes % (A) 8 %; Neutrophils # (A) 3.9 k/uL (1.3-7.7); Neutrophils % (A) 56 %; Platelet Count 177 k/uL (150-450); RBC 3.31 m/uL (3.80-5.40); RDW 13.4 % (11.5-15.5)
[2018-05-06 04:32] LABS: Albumin 3.7 g/dL (3.5-5.0); Calcium 8.7 mg/dL (8.4-10.2); Potassium 4.6 mmol/L (3.5-5.1); Total Bilirubin 0.5 mg/dL (0.2-1.3); Total Protein 6.5 g/dL (6.3-8.2)
[2018-05-06 04:36] LABS: Creatine Kinase 71 U/L (30-135)
--- NOTE | 2018-05-06 04:42 | XR ---
EXAM: XR Chest, 2 Views CLINICAL HISTORY: Altered mental status TECHNIQUE: Frontal and lateral views of the chest. COMPARISON: No relevant prior studies available. FINDINGS: Lungs: Unremarkable. No consolidation. Pleural space: Unremarkable. No pneumothorax. Heart: Mild prominence of the heart. Mediastinum: Unremarkable. Bones/joints: Unremarkable. IMPRESSION: No acute findings.
--- NOTE | 2018-05-06 04:44 | XR ---
EXAM: XR Abdomen, 2 Views CLINICAL HISTORY: Pain TECHNIQUE: Frontal view of the abdomen/pelvis with upright view of the abdomen. COMPARISON: No relevant prior studies available. FINDINGS: Intraperitoneal space: Large amount of stool and gas seen throughout the small bowel, colon and rectum. No pneumatosis or free air. Gastrointestinal tract: Unremarkable. No dilation. Bones/joints: Unremarkable. IMPRESSION: Large amount of stool and gas seen throughout the small bowel, colon and rectum. No pneumatosis or free air.
--- NOTE | 2018-05-06 04:45 | CT ---
EXAM: CT Head Without Intravenous Contrast CLINICAL HISTORY: Altered mental status TECHNIQUE: Axial computed tomography images of the head/brain without intravenous contrast. CTDI is 57.40 mGy and DLP is 1047.50 mGy-cm. This CT exam was performed using one or more of the following dose reduction techniques: automated exposure control, adjustment of the mA and/or kV according to patient size, and/or use of iterative reconstruction technique. COMPARISON: No relevant prior studies available. FINDINGS: Brain: No acute infarct, hemorrhage, mass or edema. Chronic small vessel ischemic disease and senescent changes. Ventricles: Unremarkable. No ventriculomegaly. Bones/joints: Unremarkable. No acute fracture. Soft tissues: Unremarkable. Sinuses: Minimal mucosal thickening paranasal sinuses. Mastoid air cells: Unremarkable as visualized. No mastoid effusion. IMPRESSION: No acute findings.
[2018-05-06 04:49] LABS: Creatine Kinase MB 1.3 ng/mL (0.0-2.4); Troponin I <0.012 ng/mL (0.000-0.034)
[2018-05-06 05:05] LABS: Partial Thromboplastin Time 21.2 sec (22.0-30.0)
[2018-05-06 05:31] LABS: Glucose,Whole Blood 95 mg/dL (75-99)
[2018-05-06 05:39] LABS: ABG Base Excess -3.8 mmol/L; ABG HCO3 22 mmol/L (21-25); ABG Oxygen Saturation 95.7 % (94-97); ABG PCO2 42 mmHg (35-45); ABG PH 7.33 (7.35-7.45); ABG PO2 74 mmHg (83-108); ABG TCO2 23 mmol/L (19-24)
[2018-05-06 06:22] LABS: Appearance,Urine Cloudy (Clear); Bilirubin,Urine Negative (Negative); Blood,Urine Large (Negative); Color,Urine Yellow; Glucose,Urine (UA) Negative (Negative); Hyaline Casts,Urine 10 /lpf (0-2); Ketones,Urine Negative (Negative); Leukocyte Esterase,Urine Small (Negative); Nitrite,Urine Negative (Negative); PH, Urine 6.5 (5.0-8.0); Protein,Urine 1+ (Negative); RBC,Urine >182 /hpf (0-5); Specific Gravity,Urine 1.014 (1.001-1.035); Urobilinogen,Urine <2.0 mg/dL (<2.0); WBC,Urine 32 /hpf (0-5)
[2018-05-06] MEDS ORDERED: cefTRIAXone IN SWFI 1,000 MG/10 ML SYRINGE IVP STA (06:25)
[2018-05-06] MEDS ORDERED: NALOXONE 0.4 MG/ML 1 ML VIAL IV PRN (06:37)
[2018-05-06] MEDS: SODIUM CHLORIDE 0.9% 1,000 ML IV SCH ×3 (06:53→21:02)
[2018-05-06] MEDS ORDERED: LACTULOSE 20 GM/30 ML CUP PO ONE (09:46)
[2018-05-06] MEDS ORDERED: BISACODYL 10 MG SUPP RECTAL STA (10:17)
[2018-05-06] MEDS: DOCUSATE 100 MG CAP PO SCH ×2 (10:18→21:03)
[2018-05-06] MEDS: POLYETHYLENE GLYCOL 3350 17 GM POWD.PACK PO SCH (10:18)
[2018-05-06 11:09] VITALS: BMI 23.7
[2018-05-06] MEDS ORDERED: traMADol-ACETAMINOP 37.5-325MG 1 EACH TAB PO PRN (11:18)
[2018-05-06] MEDS ORDERED: BUTALB/APAP/CAFF 50-325-40MG TAB PO PRN (11:18)
[2018-05-06] MEDS ORDERED: TOPIRAMATE 100 MG TAB PO SCH (11:30)
[2018-05-06] MEDS ORDERED: NON-FORMULARY DRUG (Omeprazole [Prilosec] 40 MG) PO SCH (11:30)
[2018-05-06] MEDS ORDERED: FOLIC ACID 1 MG TAB PO SCH (12:00)
--- NOTE | 2018-05-06 12:07 | P.HPIM ---
History of Present Illness H&P Date: 05/06/18 Chief Complaint: confusion, hallucinations 78-year-old female who presented to the emergency room with a chief complaint of confusion and hallucinations per the patients . reports the patient has been confused and forgetful for the last several months. However, he reports yesterday she was very lethargic and hallucinating. He states the patient was seeing people in their home who were not there and believed there was someone in their house performing hair cuts. reports four days ago while he was sleeping he was awoken by his moaning in the bathroom. He found the patient laying on the floor and the believes she passed out while trying to have a bowel movement. The patient did hit her head and right shoulder and does have ecchymosis to both regions. reports patient is able to shower and dress herself. She ambulates without any assistance devices. He reports over the last several months, the patient has become more confused, forgetful, and unable to complete simple tasks that she used to be able to do. He reports patient was very proficient in math, but has spent the last two months trying to balance their checkbook and is unable to do so. He reports that he has found his up at 3 or 4am multiple times and she is trying to do things around the house, even though she told her she was going to bed hours ago. He reports decreased oral intake at times and has been trying to give the patient protein supplements at home. The patient has a history of gastroesophageal reflux disease, osteoarthritis, pneumonia, depression, restless leg syndrome, headaches, pericardial effusion, kidney stones, and rheumatoid arthritis. The patient follows with Dr. Virgen outpatient for her RA. In 2016, patient did have bilateral nephrolithiasis with a stone in the right ureter with hydronephrosis. She underwent a cystoscopy with Dr. Ordoñez with right ureteral stent placement. Chest x-ray: Negative for an acute finding. CT of the brain: Negative for acute finding KUB x-ray: Large amount of stool and gas seen throughout the small bowel, colon , and rectum. EKG: Sinus bradycardia. Heart rate 58. Right bundle branch block. First degree AV block. Laboratory data upon admission revealed white count of 7.0. Hemoglobin 11.3. Platelet count 177. Sodium 141. Potassium 4.6. BUN 31. Creatinine 1.20. Glucose 93. AST 58. ALT 43. Troponin negative 1. Urinalysis reveals: Yellow cloudy urine, 1+ proteinuria, large blood, small leukocyte esterase, RBC greater than 182, WBC 32, hyaline casts 10 The patient was given 1L 0.9NS fluid bolus in the ER and started on antibiotics. She was admitted to the hospital under the care of Dr. Garcia. Consultations were placed to neurology. The patient was seen and examined at the bedside. is present who provided majority of HPI due to patients altered mental status. Patient remains lethargic but is easily arousable to verbal stimuli. Patient is able to correctly state her location and name. Unable to state the year when asked but when given multiple choices of the year, patient was able to answer the year correctly. Patients strength is equal throughout. She denies chest pain or pressure. Denies shortness of breath. Denies abdominal pain but states she has not had a bowel movement recently. Denies nausea or vomiting. Review of Systems Those systems with pertinent positive or pertinent negative responses have been documented in the HPI Past Medical History Past Medical History: GERD/Reflux, Osteoarthritis (OA), Pneumonia, Rheumatoid Arthritis (RA) Additional Past Medical History / Comment(s): Spouse thinks pt may have the very beginnnings of dementia, arthritis in multiple joints, RLS, UTIs, stress headaches, pericardial effusion, pleurisy, renal stones. History of Any Multi-Drug Resistant Organisms: Unobtainable Past Surgical History: Cholecystectomy, Joint Replacement, Orthopedic Surgery Additional Past Surgical History / Comment(s): Rotator cuff (R); Ric Knee Replacement; Panniculectomy, bilateral legs varicose vein surgery, colonoscopies -normal, bilateral cataract removal, FNA abdominal seroma, cystoscopy/bladder bx /lithotripsy with R ureteral stent. Past Anesthesia/Blood Transfusion Reactions: No Reported Reaction Additional Past Anesthesia/Blood Transfusion Reaction / Comment(s): Pt has received blood after panniculectomy without reaction. Smoking Status: Never smoker - Past Family History Mother Family Medical History: Myocardial Infarction (WA) Additional Family Medical History / Comment(s): Mother at age 69 yrs after having the flu and complicated by a [place]. Father Additional Family Medical History / Comment(s): IBS. Father at age 78yrs. Medications and Allergies Home Medications Medication Instructions Recorded Confirmed Type Aspirin 81 mg PO Q48H 01/06/15 05/06/18 History Butalb/Acetaminophen/Caffeine 1 tab PO BID PRN 01/06/15 05/06/18 History [Fioricet 50-325-40] Dicyclomine [Bentyl] 10 mg PO QID 01/06/15 05/06/18 History Folic Acid 1 mg PO Q48H 01/06/15 05/06/18 History Methotrexate Sodium [Methotrexate] 20 mg PO FR 01/06/15 05/06/18 History Multivitamin/Iron/Folic Acid 1 tab PO DAILY 01/06/15 05/06/18 History [Centrum Complete Multivit Tab] Omeprazole [PriLOSEC] 40 mg PO DAILY 01/06/15 05/06/18 History PARoxetine [Paxil] 20 mg PO QAM 01/06/15 05/06/18 History Topiramate [Topamax] 100 mg PO BID 01/06/15 05/06/18 History Certolizumab Pegol [Cimzia] 400 mg SQ QMONTH 09/17/15 05/06/18 History rOPINIRole HCL [Requip] 0.5 mg PO DAILY 09/17/15 05/06/18 History Baclofen [Lioresal] 20 mg PO TID 05/06/18 05/06/18 History Venlafaxine HCl ER [Effexor XR] 75 mg PO QAM 05/06/18 05/06/18 History Venlafaxine HCl ER [Effexor XR] 150 mg PO QAM 05/06/18 05/06/18 History Verapamil HCl [Verapamil ER] 120 mg PO HS 05/06/18 05/06/18 History traMADol HCL/ACETAMINOPHEN 1 - 2 tab PO Q4-6H PRN 05/06/18 05/06/18 History [Ultracet 37.5-325] Allergies Allergy/AdvReac Type Severity Reaction Status Date / Time etodolac [From Lodine] Allergy Rash/Hives Verified 05/06/18 10:18 nabumetone [From Relafen] Allergy Rash/Hives Verified 05/06/18 10:18 naproxen [From Naprosyn] Allergy Rash/Hives Verified 05/06/18 10:18 NSAIDS (Non-Steroidal Allergy Unknown Verified 05/06/18 10:18 Anti-Inflamma Physical Exam Vitals: Vital Signs Temp Pulse Pulse Resp BP BP Pulse Ox 05/06/18 08:32 97.6 F 56 L 16 138/57 100 05/06/18 07:16 57 L 16 133/61 100 05/06/18 06:25 58 L 16 153/69 100 05/06/18 06:07 59 L 18 145/67 100 05/06/18 04:35 97.8 F 56 L 14 144/66 100 05/06/18 04:19 98.2 F 78 20 153/72 05/06/18 04:05 98.0 F 58 L 14 162/72 99 05/06/18 03:50 97.6 F 58 L 18 172/78 100 Intake and Output 05/05/18 05/06/18 05/06/18 22:59 06:59 14:59 Intake Total 500 Output Total 300 Balance 200 Intake: Intake, IV Titration 500 Amount Sodium Chloride 0.9% 500 500 ml @ 999 mls/hr IV .Q31M ONE Rx#:[id number] Output: Urine 300 Other: Weight 68.81 kg 68.81 kg GENERAL: This is a 78-year-old female in no apparent distress at the time of examination. Pleasant and cooperative. HEENT: Ecchymosis noted to right lateral aspect of forehead. Head is normocephalic. Pupils are equal, round, and reactive to light. Sclerae anicteric. Conjunctivae are clear. Mucus membranes of the mouth are moist. Neck is supple. RESPIRATORY: Clear to ausculation. No wheezes, rales, or rhonchi. No use of accessory muscles. Patient maintaining oxygen saturation greater than 92%. No chest wall tenderness is noted on palpation or with deep breathing. CARDIOVASCULAR: Regular rate and rhythm. S1 and S2 noted. No JVD noted. No S3 or S4 noted. GASTROINTESTINAL: No distention noted. Abdomen soft and round. Normal active bowel sounds auscultated x 4 quadrants. No pain or tenderness noted upon palpation. INTEGUMENTARY: No cyanosis. No jaundice. No rashes noted. No cellulitis noted. EXTREMITIES: Ecchymosis noted to right posterior shoulder. 2+ peripheral pulses. No evidence of peripheral edema. No calf tenderness noted. NEUROLOGIC: Cranial nerves II-XII intact. Speech clear. PSYCHIATRIC: Lethargic but easily arousable to verbal stimulation. Oriented 2. Results CBC & Chem 7: 05/06/18 03:51 05/06/18 03:51 Labs: Abnormal Lab Results - Last 24 Hours (Table) 05/06/18 05/06/18 05/06/18 Range/Units 03:51 03:51 04:30 RBC 3.31 L (3.80-5.40) m/uL Hgb 11.3 L (11.4-16.0) gm/dL MCV 103.0 H (80.0-100.0) fL APTT 21.2 L (22.0-30.0) sec ABG pH (7.35-7.45) ABG pO2 (83-108) mmHg Chloride 110 H (98-107) mmol/L BUN 31 H (7-17) mg/dL Creatinine 1.20 H (0.52-1.04) mg/dL AST 58 H (14-36) U/L Urine Appearance (Clear) Urine Protein (Negative) Urine Blood (Negative) Ur Leukocyte Esterase (Negative) Urine RBC (0-5) /hpf Urine WBC (0-5) /hpf Hyaline Casts (0-2) /lpf 05/06/18 05/06/18 Range/Units 05:32 06:00 RBC (3.80-5.40) m/uL Hgb (11.4-16.0) gm/dL MCV (80.0-100.0) fL APTT (22.0-30.0) sec ABG pH 7.33 L (7.35-7.45) ABG pO2 74 L (83-108) mmHg Chloride (98-107) mmol/L BUN (7-17) mg/dL Creatinine (0.52-1.04) mg/dL AST (14-36) U/L Urine Appearance Cloudy H (Clear) Urine Protein 1+ H (Negative) Urine Blood Large H (Negative) Ur Leukocyte Esterase Small H (Negative) Urine RBC >182 H (0-5) /hpf Urine WBC 32 H (0-5) /hpf Hyaline Casts 10 H (0-2) /lpf Thrombosis Risk Factor Assmnt - Choose All That Apply Any of the Below Risk Factors Present?: Yes Other Risk Factors: Yes Each Risk Factor Represents 3 Points: Age 75 years or older Other congenital or acquired thrombophilia - If yes, enter type in comment: No Thrombosis Risk Factor Assessment Total Risk Factor Score: 3 Thrombosis Risk Factor Assessment Level: Moderate Risk Assessment and Plan Plan: ASSESSMENT: Urinary tract infection, present on admission, cultures pending Hematuria, etiology unknown, may be secondary to above, US pending, patient does have history of nephrolithiasis with right ureteral stent placement Encephalopathy, possibly secondary to urinary tract infection. Can not rule out underlying cognitive disorder such as dementia Constipation, xray reveals large amount of retained stool Acute kidney injury, creatinine 1.2 on admission, baseline 0.8, suspect secondary to urinary tract infection and dehydration Recent fall from toilet onto floor with ecchymosis to right shoulder and right temporal region History of osteoarthritis and rheumatoid arthritis Gastroesophageal reflux disease Depression History of headaches History of restless leg syndrome PLAN: Neurology on consult. Await further recommendations and input\ 500cc bolus now, then continue IVF at 100cc/hr Continue antibiotics: Rocephin Await results of urine culture Monitor kidney function. Repeat labs in a.m. US kidneys/bladder Home meds as appropriate Hold aspirin at this time secondary to hematuria Hold baclofen secondary to lethargy Hold Bentyl secondary to constipation Colace, Lactulose, dulcolax supp, and miralax. Notify provider if patient does not have a BM Consult dietitian secondary to decreased PO intake at home. Recommend supplements Consult PT/OT to evaluate patient XR right shoulder secondary to recent fall Monitor labs GI prophylaxis: Protonix 40 mg PO Daily DVT prophylaxis: SCDs to bilateral LE Monitor vital signs and address as appropriate Discharge planning: Patient to return home when stable pending PT/OT eval Further recommendations pending patient's course Nurse practitioner note has been reviewed by physician. Signing provider agrees with the documented findings, assessment, and plan of care.
[2018-05-06] MEDS: VENLAFAXINE HCL ER 150 MG CAP PO SCH (12:38)
[2018-05-06] MEDS: MULTIVITAMINS, THERA 1 EACH TAB PO SCH (12:38)
[2018-05-06] MEDS: PARoxetine 20 MG TAB PO SCH (12:38)
[2018-05-06] MEDS: VENLAFAXINE HCL ER 75 MG CAP PO SCH (12:39)
--- NOTE | 2018-05-06 16:27 | US ---
EXAMINATION TYPE: US renals and bladder DATE OF EXAM: 05/06/2018 COMPARISON: NONE CLINICAL HISTORY: hematuria. Hematuria, bilateral flank pain, history of kidney stones EXAM MEASUREMENTS: Right Kidney: 9.7 x 4.2 x 4.2 cm Left Kidney: 10.5 x 4.6 x 4.3 cm Technical limitations - patient unable to move from supine position or take breath in and hold Right Kidney: multiple stones, largest = 0.6cm Left Kidney: stone lower pole = 0.8cm Bladder: appears wnl Bilateral Jets seen: No Incidental finding: complex cystic area right ovary = 2.6 x 2.1cm Cortical medullary differentiation is maintained. No evident hydronephrosis. IMPRESSION: Bilateral nephrolithiasis. Right ovarian cystic lesion noted incidentally. Technologist reports a garcia ited exam.
--- NOTE | 2018-05-06 16:55 | XR ---
Right shoulder HISTORY: Trauma and pain 3 views of the right shoulder Acromial clavicular joint shows arthropathy change. There is also osteoarthritic change with marginal spurring and joint space loss at the glenohumeral joint. Bone mineralization is somewhat reduced, th ere is subchondral geode formation in the bony labrum and probable pseudocyst formation in the cristino l head. Right lung apex as visualized is normal. IMPRESSION: No acute fracture or dislocation is evident. Consider shoulder MRI for better evaluation. Additional findings above.
[2018-05-06] MEDS ORDERED: VERAPAMIL SR 120 MG TABLET.ER PO SCH (21:00)
[2018-05-06] MEDS: TOPIRAMATE 25 MG TAB PO SCH (21:04)
[2018-05-07 01:56] LABS: Appearance,Urine Clear (Clear); Bilirubin,Urine Negative (Negative); Blood,Urine Negative (Negative); Color,Urine Yellow; Glucose,Urine (UA) Negative (Negative); Ketones,Urine Negative (Negative); Leukocyte Esterase,Urine Negative (Negative); Nitrite,Urine Negative (Negative); PH, Urine 7.5 (5.0-8.0); Protein,Urine Negative (Negative); Specific Gravity,Urine 1.013 (1.001-1.035); Urobilinogen,Urine <2.0 mg/dL (<2.0)
[2018-05-07] MEDS ORDERED: PANTOPRAZOLE 40 MG TABLET PO SCH (07:30)
[2018-05-07 08:17] LABS: Basophils % (A) 0 %; Eosinophils # (A) 0.3 k/uL (0-0.7); Eosinophils % (A) 5 %; HCT 34.6 % (34.0-46.0); HGB 10.8 gm/dL (11.4-16.0); Hypochromasia Slight; Lymphocytes # (A) 1.8 k/uL (1.0-4.8); Lymphocytes % (A) 30 %; MCH 33.5 pg (25.0-35.0); MCHC 31.1 g/dL (31.0-37.0); MCV 107.7 fL (80.0-100.0); Macrocytosis Moderate; Mean Platelet Volume 6.9; Monocytes # (A) 0.2 k/uL (0-1.0); Monocytes % (A) 4 %; Neutrophils # (A) 3.7 k/uL (1.3-7.7); Neutrophils % (A) 60 %; Platelet Count 159 k/uL (150-450); RBC 3.21 m/uL (3.80-5.40); RDW 13.9 % (11.5-15.5); WBC 6.2 k/uL (3.8-10.6)
--- NOTE | 2018-05-07 08:41 | CONS ---
CONSULTATION DATE OF CONSULTATION: 05/06/2018 CHIEF COMPLAINT: Altered mental status. HISTORY OF PRESENT ILLNESS: The patient is a pleasant 78-year-old, female, who is being evaluated today on 05/06/2018 by the neurology service per the request of Dr. Jh Garcia for altered mental status. The patient was brought into [facility] Emergency Room after her noticed a progressive confusion over the past couple of days. She was having some hallucinations and significant drowsiness as well. The patient did have a fall approximately 4 or 5 days ago but no head injury was witnessed. She did not have any loss of consciousness. A CT scan of the brain was done in the emergency room which showed no acute abnormalities. There was evidence of small vessel ischemic changes and generalized atrophy. Her CBC showed anemia with a hemoglobin of 11.3, and MCV was elevated at 103. Her INR and cardiac enzymes were normal. Her comprehensive metabolic profile showed renal insufficiency with a BUN of 31 and creatinine of 1.2 and AST was slightly elevated at 58. Her urinalysis showed 32 WBCs with small leukocyte esterase and significant hematuria. She was started on IV antibiotics and admitted for further workup and management. At the time of my evaluation, she is lying in her bed and appears to be in no acute distress. She is significantly improved. Her is at bedside and he states that she is back to her usual self. He does inform me that over the past 1 year or so, the patient has been having some short-term memory difficulties which has slightly worsened. The patient denies any lateralizing numbness or weakness. PAST MEDICAL HISTORY: Arthritis, gastroesophageal reflux disease, restless legs syndrome, tension headaches, history of pericardial effusion and pleurisy, history of nephrolithiasis, orthopedic surgeries, cholecystectomy, depression. FAMILY HISTORY: Positive for heart disease. SOCIAL HISTORY: She denies any tobacco, alcohol or drug use. HOME MEDICATIONS: Reviewed in the chart. ALLERGIES: LODINE, RELAFEN, NAPROSYN, NSAIDS. REVIEW OF SYSTEMS: As mentioned above and otherwise negative. PHYSICAL EXAM: Her vital signs show a temperature of 97.6, pulse 79, respirations 16, blood pressure 151/72. GENERAL APPEARANCE: The patient is a well-developed, elderly female who appears to be in no acute distress. HEENT: Normocephalic, atraumatic. No facial asymmetry is seen. Extraocular muscles are intact. Neck is supple with no masses felt. CARDIOVASCULAR: Regular rate and rhythm. ABDOMEN: Nontender, nondistended. Extremities showed no edema or clubbing. NEUROLOGICAL EXAM: The patient is awake and oriented x3. Speech and language are normal. Strength is full in all 4 extremities. Sensory exam was normal to light touch in all 4 extremities. No tremors or seizure-like activity is seen. No facial asymmetry is seen on cranial nerve testing. IMPRESSION: 1. Altered mental status, resolved. 2. Acute infectious and metabolic encephalopathy. 3. Progressive memory loss. 4. Acute urinary tract infection. 5. Renal insufficiency. 6. Hematuria. RECOMMENDATION: The patient's recent confusion, drowsiness and hallucinations are likely due to acute multifactorial encephalopathy given her urinary tract infection and renal insufficiency. Continue IV antibiotic therapy and continue IV hydration. An EEG has been ordered. I did review her CT scan of the brain which showed no acute findings. As for her short-term memory difficulties over the past year, I did have a lengthy discussion with the patient and her regarding the differential diagnosis. She will be worked up for possible dementia in the outpatient clinic once she has cleared her current symptoms from her acute encephalopathy. I will order a vitamin B12 level and thyroid function tests. I will decrease her baclofen to 10 mg t.i.d. and will also decrease her Topamax to 50 mg b.i.d. as these medications can affect the memory. Once I see her in the office, I will continue to wean her off of these 2 medications. Continue your current workup for her hematuria. I will continue to follow with you. Further recommendations to follow. Thank you Dr. Garcia for allowing me to participate in the care of your patient. If you have any questions, please feel free to contact me. MMODL / IJN: [id number] /
[2018-05-07] MEDS: DOCUSATE 100 MG CAP PO SCH (08:42)
[2018-05-07] MEDS: POLYETHYLENE GLYCOL 3350 17 GM POWD.PACK PO SCH (08:42)
[2018-05-07] MEDS: VENLAFAXINE HCL ER 150 MG CAP PO SCH (08:43)
[2018-05-07] MEDS: TOPIRAMATE 25 MG TAB PO SCH (08:43)
[2018-05-07] MEDS: VENLAFAXINE HCL ER 75 MG CAP PO SCH (08:43)
[2018-05-07] MEDS: PARoxetine 20 MG TAB PO SCH (08:44)
[2018-05-07 08:45] LABS: Albumin 2.8 g/dL (3.5-5.0); Potassium 4.4 mmol/L (3.5-5.1); Total Bilirubin 0.4 mg/dL (0.2-1.3); Total Protein 5.5 g/dL (6.3-8.2)
[2018-05-07] MEDS: SODIUM CHLORIDE 0.9% 1,000 ML IV SCH (08:45)
--- NOTE | 2018-05-07 08:46 | P.PN ---
Subjective Progress Note Date: 05/07/18 78-year-old female who presented to the emergency room with a chief complaint of confusion and hallucinations per the patients . reports the patient has been confused and forgetful for the last several months. However, he reports yesterday she was very lethargic and hallucinating. He states the patient was seeing people in their home who were not there and believed there was someone in their house performing hair cuts. reports four days ago while he was sleeping he was awoken by his moaning in the bathroom. He found the patient laying on the floor and the believes she passed out while trying to have a bowel movement. The patient did hit her head and right shoulder and does have ecchymosis to both regions. reports patient is able to shower and dress herself. She ambulates without any assistance devices. He reports over the last several months, the patient has become more confused, forgetful, and unable to complete simple tasks that she used to be able to do. He reports patient was very proficient in math, but has spent the last two months trying to balance their checkbook and is unable to do so. He reports that he has found his up at 3 or 4am multiple times and she is trying to do things around the house, even though she told her she was going to bed hours ago. He reports decreased oral intake at times and has been trying to give the patient protein supplements at home. The patient has a history of gastroesophageal reflux disease, osteoarthritis, pneumonia, depression, restless leg syndrome, headaches, pericardial effusion, kidney stones, and rheumatoid arthritis. The patient follows with Dr. Virgen outpatient for her RA. In 2016, patient did have bilateral nephrolithiasis with a stone in the right ureter with hydronephrosis. She underwent a cystoscopy with Dr. Ordoñez with right ureteral stent placement. Chest x-ray: Negative for an acute finding. CT of the brain: Negative for acute finding KUB x-ray: Large amount of stool and gas seen throughout the small bowel, colon , and rectum. EKG: Sinus bradycardia. Heart rate 58. Right bundle branch block. First degree AV block. Laboratory data upon admission revealed white count of 7.0. Hemoglobin 11.3. Platelet count 177. Sodium 141. Potassium 4.6. BUN 31. Creatinine 1.20. Glucose 93. AST 58. ALT 43. Troponin negative 1. Urinalysis reveals: Yellow cloudy urine, 1+ proteinuria, large blood, small leukocyte esterase, RBC greater than 182, WBC 32, hyaline casts 10 The patient was given 1L 0.9NS fluid bolus in the ER and started on antibiotics. She was admitted to the hospital under the care of Dr. Garcia. Consultations were placed to neurology. The patient was seen and examined at the bedside. is present who provided majority of HPI due to patients altered mental status. Patient remains lethargic but is easily arousable to verbal stimuli. Patient is able to correctly state her location and name. Unable to state the year when asked but when given multiple choices of the year, patient was able to answer the year correctly. Patients strength is equal throughout. She denies chest pain or pressure. Denies shortness of breath. Denies abdominal pain but states she has not had a bowel movement recently. Denies nausea or vomiting. 05/07/2018 Patient seen and examined at the bedside. Patient is much more awake this morning. Able to answer questions appropriately. Confusion is resolving. Patient underwent xray of right shoulder which was negative for acute fracture or dislocation. Patient underwent US of kidneys and bladder due to large amount of hematuria on initial UA. US reveals bilateral nephrolithiasis, no hydronephrosis. Repeat UA is negative for blood. Patient remains on Rocephin. Urine culture is pending. Patient has been afebrile. Patient had a large BM yesterday afternoon. Lab work from this morning is currently pending. Objective - Vital Signs Vital signs: Vital Signs Temp 97.4 F L 05/07/18 05:55 Pulse 72 05/07/18 05:55 Resp 16 05/07/18 05:55 BP 131/62 05/07/18 05:55 Pulse Ox 97 05/07/18 05:55 Intake & Output 05/06/18 05/07/18 05/07/18 18:59 06:59 18:59 Intake Total 980 340 Output Total 600 Balance 380 340 Weight 68.81 kg Intake: Intake, IV Titration 500 Amount Sodium Chloride 0.9% 500 500 ml @ 999 mls/hr IV .Q31M ONE Rx#:[id number] Oral 480 340 Output: Urine 600 Other: Voiding Method Bedside Commode Bedside Commode Diaper Diaper Incontinent Incontinent # Voids 1 1 # Bowel Movements 1 - Exam GENERAL: This is a 78-year-old female in no apparent distress at the time of examination. Pleasant and cooperative. HEENT: Ecchymosis noted to right lateral aspect of forehead. Head is normocephalic. Pupils are equal, round, and reactive to light. Sclerae anicteric. Conjunctivae are clear. Mucus membranes of the mouth are moist. Neck is supple. RESPIRATORY: Clear to ausculation. No wheezes, rales, or rhonchi. No use of accessory muscles. Patient maintaining oxygen saturation greater than 92%. No chest wall tenderness is noted on palpation or with deep breathing. CARDIOVASCULAR: Regular rate and rhythm. S1 and S2 noted. No JVD noted. No S3 or S4 noted. GASTROINTESTINAL: No distention noted. Abdomen soft and round. Normal active bowel sounds auscultated x 4 quadrants. No pain or tenderness noted upon palpation. INTEGUMENTARY: No cyanosis. No jaundice. No rashes noted. No cellulitis noted. EXTREMITIES: Ecchymosis noted to right posterior shoulder. 2+ peripheral pulses. No evidence of peripheral edema. No calf tenderness noted. NEUROLOGIC: Cranial nerves II-XII intact. Speech clear. PSYCHIATRIC: Awake and alert. Oriented 2-3. - Labs CBC & Chem 7: 05/07/18 07:49 05/06/18 03:51 Labs: Abnormal Lab Results - Last 24 Hours (Table) 05/06/18 Range/Units 03:51 Vitamin B12 1128.0 H (200.0-944.0) pg/mL Microbiology - Last 24 Hours (Table) 05/06/18 06:00 Urine Culture - Preliminary Urine,Catheterized Assessment and Plan Plan: ASSESSMENT: Urinary tract infection, present on admission, cultures pending Hematuria, etiology unknown, may be secondary to above, US reveals nephrolithiasis without evidence of hydronephrosis. patient does have history of nephrolithiasis with right ureteral stent placement Encephalopathy, possibly secondary to urinary tract infection. Can not rule out underlying cognitive disorder such as dementia Constipation, xray reveals large amount of retained stool Acute kidney injury, creatinine 1.2 on admission, baseline 0.8, suspect secondary to urinary tract infection and dehydration Recent fall from toilet onto floor with ecchymosis to right shoulder and right temporal region History of osteoarthritis and rheumatoid arthritis Gastroesophageal reflux disease Depression History of headaches History of restless leg syndrome PLAN: Neurology on consult. Await further recommendations and input EEG ordered Continue IV fluids. Decrease to 50cc/hr Continue antibiotics: Rocephin Await results of urine culture Monitor kidney function. Repeat labs in a.m. Home meds as appropriate Resume aspirin Hold Bentyl secondary to constipation PT/OT Monitor labs GI prophylaxis: Protonix 40 mg PO Daily DVT prophylaxis: SCDs to bilateral LE Monitor vital signs and address as appropriate Discharge planning: Patient to return home when stable pending PT/OT eval Further recommendations pending patient's course Nurse practitioner note has been reviewed by physician. Signing provider agrees with the documented findings, assessment, and plan of care.
[2018-05-07] MEDS ORDERED: ASPIRIN 81 MG PO SCH (09:00)
[2018-05-07] MEDS ORDERED: cefTRIAXone IN SWFI 1,000 MG/10 ML SYRINGE IVP SCH (09:00)
[2018-05-07] MEDS: MULTIVITAMINS, THERA 1 EACH TAB PO SCH (13:15)
--- NOTE | 2018-05-07 14:35 | P.DS ---
Providers Date of admission: 05/06/18 06:37 Expected date of discharge: 05/07/18 Attending physician: Jh Garcia Consults: 05/06/18 06:37 Consult Physician Routine Consulting Provider: Dmitry Harmon Consult Reason/Comments: AMS Do you want consulting provider notified?: Yes Primary care physician: [facility] Course: 78-year-old female who presented to the emergency room with a chief complaint of confusion and hallucinations per the patients . reports the patient has been confused and forgetful for the last several months. However, he reports yesterday she was very lethargic and hallucinating. He states the patient was seeing people in their home who were not there and believed there was someone in their house performing hair cuts. reports four days ago while he was sleeping he was awoken by his moaning in the bathroom. He found the patient laying on the floor and the believes she passed out while trying to have a bowel movement. The patient did hit her head and right shoulder and does have ecchymosis to both regions. reports patient is able to shower and dress herself. She ambulates without any assistance devices. He reports over the last several months, the patient has become more confused, forgetful, and unable to complete simple tasks that she used to be able to do. He reports patient was very proficient in math, but has spent the last two months trying to balance their checkbook and is unable to do so. He reports that he has found his up at 3 or 4am multiple times and she is trying to do things around the house, even though she told her she was going to bed hours ago. He reports decreased oral intake at times and has been trying to give the patient protein supplements at home. The patient has a history of gastroesophageal reflux disease, osteoarthritis, pneumonia, depression, restless leg syndrome, headaches, pericardial effusion, kidney stones, and rheumatoid arthritis. The patient follows with Dr. Virgen outpatient for her RA. In 2016, patient did have bilateral nephrolithiasis with a stone in the right ureter with hydronephrosis. She underwent a cystoscopy with Dr. Ordoñez with right ureteral stent placement. Chest x-ray: Negative for an acute finding. CT of the brain: Negative for acute finding KUB x-ray: Large amount of stool and gas seen throughout the small bowel, colon , and rectum. EKG: Sinus bradycardia. Heart rate 58. Right bundle branch block. First degree AV block. Laboratory data upon admission revealed white count of 7.0. Hemoglobin 11.3. Platelet count 177. Sodium 141. Potassium 4.6. BUN 31. Creatinine 1.20. Glucose 93. AST 58. ALT 43. Troponin negative 1. Urinalysis reveals: Yellow cloudy urine, 1+ proteinuria, large blood, small leukocyte esterase, RBC greater than 182, WBC 32, hyaline casts 10 The patient was given 1L 0.9NS fluid bolus in the ER and started on antibiotics. She was admitted to the hospital under the care of Dr. Garcia. Consultations were placed to neurology. 05/06/2018 The patient was seen and examined at the bedside. is present who provided majority of HPI due to patients altered mental status. Patient remains lethargic but is easily arousable to verbal stimuli. Patient is able to correctly state her location and name. Unable to state the year when asked but when given multiple choices of the year, patient was able to answer the year correctly. Patients strength is equal throughout. She denies chest pain or pressure. Denies shortness of breath. Denies abdominal pain but states she has not had a bowel movement recently. Denies nausea or vomiting. 05/07/2018 Patient seen and examined at the bedside. Patient is much more awake this morning. Able to answer questions appropriately. Confusion is resolving. Patient underwent xray of right shoulder which was negative for acute fracture or dislocation. Patient underwent US of kidneys and bladder due to large amount of hematuria on initial UA. US reveals bilateral nephrolithiasis, no hydronephrosis. Repeat UA is negative for blood. Patient remains on Rocephin. Urine culture is pending. Patient has been afebrile. Patient had a large BM yesterday afternoon. Patient was evaluated by Neurology. He is to have outpatient workup for possible diagnosis of dementia. Neurology decreased patient's Topamax to 50 mg twice a and also decreased her baclofen to 10 mg 3 times a day. EEG results are pending. The patient was deemed stable for discharge per Dr. Garcia. She is to follow up on an outpatient basis with Dr. Garcia and neurology. A prescription was sent to the patient's preferred pharmacy for Ceftin. DISCHARGE DIAGNOSIS: Urinary tract infection, present on admission, cultures pending Hematuria, etiology unknown, may be secondary to above, US reveals nephrolithiasis without evidence of hydronephrosis, repeat urinalysis is negative for hematuria. patient does have history of nephrolithiasis with right ureteral stent placement. Hematuria may have been due to tissue trauma when collecting specimen as patient was straight cathed. Encephalopathy, possibly secondary to urinary tract infection. Can not rule out underlying cognitive disorder such as dementia Constipation, xray reveals large amount of retained stool, resolved at the time of discharge Acute kidney injury, creatinine 1.2 on admission, baseline 0.8, suspect secondary to urinary tract infection and dehydration, resolved at time of discharge Recent fall from toilet onto floor with ecchymosis to right shoulder and right temporal region, x-ray of right shoulder negative for acute fracture or dislocation History of osteoarthritis and rheumatoid arthritis Gastroesophageal reflux disease Depression History of headaches History of restless leg syndrome Nurse practitioner note has been reviewed by physician. Signing provider agrees with the documented findings, assessment, and plan of care. Patient Condition at Discharge: Stable Plan - Discharge Summary Discharge Rx Participant: No New Discharge Prescriptions: New Baclofen [Lioresal] 10 mg PO TID tab Cefuroxime Axetil [Ceftin] 500 mg PO BID 3 Days #6 tab Topiramate [Topamax] 50 mg PO BID #120 tab Continue Multivitamin/Iron/Folic Acid [Centrum Complete Multivit Tab] 1 tab PO DAILY PARoxetine [Paxil] 20 mg PO QAM Omeprazole [PriLOSEC] 40 mg PO DAILY Methotrexate Sodium [Methotrexate] 20 mg PO FR Folic Acid 1 mg PO Q48H Dicyclomine [Bentyl] 10 mg PO QID Butalb/Acetaminophen/Caffeine [Fioricet 50-325-40] 1 tab PO BID PRN PRN Reason: Headache Aspirin 81 mg PO Q48H rOPINIRole HCL [Requip] 0.5 mg PO DAILY Certolizumab Pegol [Cimzia] 400 mg SQ QMONTH Venlafaxine HCl ER [Effexor XR] 150 mg PO QAM Venlafaxine HCl ER [Effexor XR] 75 mg PO QAM Verapamil HCl [Verapamil ER] 120 mg PO HS traMADol HCL/ACETAMINOPHEN [Ultracet 37.5-325] 1 - 2 tab PO Q4-6H PRN PRN Reason: Pain Discontinued Topiramate [Topamax] 100 mg PO BID Baclofen [Lioresal] 20 mg PO TID Discharge Medication List Aspirin 81 mg PO Q48H 01/06/15 [History] Butalb/Acetaminophen/Caffeine [Fioricet 50-325-40] 1 tab PO BID PRN 01/06/15 [ History] Dicyclomine [Bentyl] 10 mg PO QID 01/06/15 [History] Folic Acid 1 mg PO Q48H 01/06/15 [History] Methotrexate Sodium [Methotrexate] 20 mg PO FR 01/06/15 [History] Multivitamin/Iron/Folic Acid [Centrum Complete Multivit Tab] 1 tab PO DAILY [History] Omeprazole [PriLOSEC] 40 mg PO DAILY 01/06/15 [History] PARoxetine [Paxil] 20 mg PO QAM 01/06/15 [History] Certolizumab Pegol [Cimzia] 400 mg SQ QMONTH 09/17/15 [History] rOPINIRole HCL [Requip] 0.5 mg PO DAILY 09/17/15 [History] Venlafaxine HCl ER [Effexor XR] 75 mg PO QAM 05/06/18 [History] Venlafaxine HCl ER [Effexor XR] 150 mg PO QAM 05/06/18 [History] Verapamil HCl [Verapamil ER] 120 mg PO HS 05/06/18 [History] traMADol HCL/ACETAMINOPHEN [Ultracet 37.5-325] 1 - 2 tab PO Q4-6H PRN 05/06/18 [ History] Baclofen [Lioresal] 10 mg PO TID tab 05/07/18 [Rx] Cefuroxime Axetil [Ceftin] 500 mg PO BID 3 Days #6 tab 05/07/18 [Rx] Topiramate [Topamax] 50 mg PO BID #120 tab 05/07/18 [Rx] Follow up Appointment(s)/Referral(s): Jh Garcia DO [Primary Care Provider] - 1 Week Dmitry Harmon MD [STAFF PHYSICIAN] - 2 Weeks Activity/Diet/Wound Care/Special Instructions: Do not take your Bentyl when you are constipated Discharge Disposition: HOME SELF-CARE
[2018-05-07 15:00] VITALS: BP 144/66; PULSE 86; RESP 18; TEMP 98.6
[2018-05-07] MEDS ORDERED: BACLOFEN 10 MG TAB PO SCH (16:00)
--- NOTE | 2018-05-07 20:14 | EEG ---
ELECTROENCEPHALOGRAM REPORT DATE OF SERVICE: 05/07/2018 REASON FOR TESTING: Altered mental status. DESCRIPTION OF THE PROCEDURE: This EEG was performed using a 21-channel digital electroencephalograph, following international 10-20 system. DESCRIPTION OF THE RECORDING: From the beginning of the tracing, and with the patient's eyes closed, the background rhythm was mostly consisting of 8 Hz alpha frequency in the posterior occipital lead. No obvious asymmetry is seen. Photic stimulation was performed with a minimal driving response seen. No pathological waves were elicited. Hyperventilation was not performed. Occasional sharp waves are seen. Later in the tracing, the patient does reach stage II of sleep and occasional sleep spindles are seen. No generalized epileptiform discharges were seen. Her EKG lead showed a regular rate and rhythm. INTERPRETATION: This asleep and awake EEG is abnormal due to the presence of occasional sharp waves. This could be consistent with a reduced seizure threshold with no obvious epileptiform discharges seen. Clinical correlation is recommended. LESLY / LIZZIE: [id number] /
[2018-05-10] MEDS ORDERED: METHOTREXATE SODIUM 2.5 MG TAB PO SCH (09:00)
== END 2018-05-07 16:07 | disposition home or self-care (01) | DRG 689 ==
LOC: EC 03:37 → 4MS4W 06:37
PROVIDERS: ADMIT Family Medicine; ATTEND Family Medicine
DX: N39.0 Urinary tract infection, site not specified (principal); G93.41 Metabolic encephalopathy; N17.9 Acute kidney failure, unspecified; D64.9 Anemia, unspecified; F32.9 Major depressive disorder, single episode, unspecified; G25.81 Restless legs syndrome; I44.0 Atrioventricular block, first degree; I45.10 Unspecified right bundle-branch block; K21.9 Gastro-esophageal reflux disease without esophagitis; K59.00 Constipation, unspecified; M06.9 Rheumatoid arthritis, unspecified; N20.0 Calculus of kidney; R29.6 Repeated falls; S00.93XA Contusion of unspecified part of head, initial encounter; S40.011A Contusion of right shoulder, initial encounter; W18.11XA Fall from or off toilet without subsequent striking against object, initial encounter; Z91.81 History of falling; Y92.002 Bathroom of unspecified non-institutional (private) residence as the place of occurrence of the external cause; Z79.82 Long term (current) use of aspirin; Z82.49 Family history of ischemic heart disease and other diseases of the circulatory system; Z87.442 Personal history of urinary calculi; Z96.653 Presence of artificial knee joint, bilateral; R00.1 Bradycardia, unspecified; M15.9 Polyosteoarthritis, unspecified; Z87.01 Personal history of pneumonia (recurrent); Z98.42 Cataract extraction status, left eye; Z98.41 Cataract extraction status, right eye; G44.209 Tension-type headache, unspecified, not intractable; Z79.899 Other long term (current) drug therapy; Z88.6 Allergy status to analgesic agent; Z88.8 Allergy status to other drugs, medicaments and biological substances; F03.90 Unspecified dementia, unspecified severity, without behavioral disturbance, psychotic disturbance, mood disturbance, and anxiety
CPT/HCPCS: 36415; 36600; 70450; 71046; 74018; 76770; 80053; 81001; 81003; 82550; 82553; 82607; 82805; 84443; 84484; 85025; 85610; 85730; 87086; 93005; 95819; 96361; 96374; 99285

== ENCOUNTER 2018-06-19 21:49 | Emergency (ER) | payer MEDICARE ==
[2018-06-19 21:57] VITALS: BP 156/61; PULSE 84; RESP 20; TEMP 97.8
[2018-06-19] MEDS ORDERED: PROPARACAINE 0.5% OPHTH DROPS 15 ML BTL LEFT EYE STA (22:04)
[2018-06-19] MEDS ORDERED: OFLOXACIN 0.3% OPHTH DROPS 5 ML BOTTLE LEFT EYE STA (22:19)
--- NOTE | 2018-06-19 22:22 | ED ---
Eye Problem HPI - General Chief complaint: Eye Problems Stated complaint: Eye Pain Time Seen by Provider: 06/19/18 22:03 Source: patient, RN notes reviewed Mode of arrival: ambulatory Limitations: no limitations - History of Present Illness Initial comments: This is a 78-year-old female who presents to the emergency department with chief complaint of eye redness. Patient states that her left eye became red and irritated approximately 3 days ago. She states that it has been tearing and draining. She states that this afternoon she had a foreign body sensation which made it difficult for her to open her eye. Denies any significant pain. Denies any itchiness or crusting. Denies vision changes, blurred vision or vision loss. Patient states that she is being treated for bronchitis with azithromycin. She reports a cough and sore throat over the past few days. Denies fever, chills, chest pain, shortness of breath, abdominal pain, nausea or vomiting, numbness or tingling, headache or dizziness. - Related Data Home Medications Medication Instructions Recorded Confirmed Aspirin 81 mg PO DAILY 06/17/18 06/17/18 Atorvastatin Calcium [Lipitor] 10 mg PO HS 06/17/18 06/17/18 Multivit-Min/FA/Lycopen/Lutein 1 each PO DAILY 06/17/18 06/17/18 [Centrum Silver Tablet] Venlafaxine HCl [Effexor] 150 mg PO DAILY 06/17/18 06/17/18 Allergies Allergy/AdvReac Type Severity Reaction Status Date / Time etodolac [From Lodine] Allergy Rash/Hives Verified 06/19/18 21:57 nabumetone [From Relafen] Allergy Rash/Hives Verified 06/19/18 21:57 naproxen [From Naprosyn] Allergy Rash/Hives Verified 06/19/18 21:57 NSAIDS (Non-Steroidal Allergy Unknown Verified 06/19/18 21:57 Anti-Inflamma Review of Systems ROS Statement: Those systems with pertinent positive or pertinent negative responses have been documented in the HPI. ROS Other: All systems not noted in ROS Statement are negative. Past Medical History Past Medical History: Cancer, GERD/Reflux, Osteoarthritis (OA), Pneumonia, Renal Disease, Rheumatoid Arthritis (RA) Additional Past Medical History / Comment(s): Spouse thinks pt may have the very beginnnings of dementia, arthritis in multiple joints, RLS, UTIs, stress headaches, pericardial effusion, pleurisy, Skin cancer on her nose. Cut on L finger. Kidney stones. History of Any Multi-Drug Resistant Organisms: None Reported Past Surgical History: Cholecystectomy, Joint Replacement, Orthopedic Surgery Additional Past Surgical History / Comment(s): Rotator cuff (R); Ric Knee Replacement; Panniculectomy, bilateral legs varicose vein surgery, colonoscopies -normal, bilateral cataract removal, FNA abdominal seroma, cystoscopy/bladder bx /lithotripsy with R ureteral stent. Past Anesthesia/Blood Transfusion Reactions: No Reported Reaction Additional Past Anesthesia/Blood Transfusion Reaction / Comment(s): Pt has received blood after panniculectomy without reaction. Past Psychological History: No Psychological Hx Reported Smoking Status: Never smoker Past Alcohol Use History: None Reported Past Drug Use History: None Reported - Past Family History Mother Family Medical History: Myocardial Infarction (NC) Additional Family Medical History / Comment(s): Mother at age 69 yrs after having the flu and complicated by a NC. Father Additional Family Medical History / Comment(s): IBS. Father at age 78yrs. General Exam - General Exam Comments Initial Comments: General: Awake and alert, well-developed; in no apparent distress. HEENT: Head atraumatic, normocephalic. Pupils are equal, round and reactive to light. Extraocular movements intact. Left conjunctiva is injected. On fluorescein staining, no abrasions or ulcers are noted. No foreign bodies noted under superior or inferior eyelids. Negative Rodolfo's. No chemosis. IOP 18 bilaterally. Oropharynx moist without erythema or exudate. Neck: Supple. Normal ROM. Cardiovascular: Regular rate and rhythm. No murmurs, rubs or gallops. Chest symmetrical. Respiratory: Lungs clear to auscultation bilaterally. No wheezes, rales or rhonchi. Normal respiratory effort with no use of accessory muscles. Musculoskeletal: Normal ROM, no tenderness bilateral upper and lower extremities. Ambulating normally. Skin: [place], warm and dry without rashes or lesions. Neurological: Alert and oriented x3. CN II-XII grossly intact. Speech is fluent and answers are appropriate. No focal neuro deficits. Psychiatric: Normal mood and affect. No overt signs of depression or anxiety noted. Limitations: no limitations Course Vital Signs 06/19/18 21:55 Temperature 97.8 F Pulse Rate 84 Respiratory 20 Rate Blood Pressure 156/61 O2 Sat by Pulse 97 Oximetry Medical Decision Making - Medical Decision Making This is a 78-year-old female who presents to the emergency department with chief complaint of left eye redness and discomfort. She denies any vision changes. Reports excessive tearing, drainage and foreign body sensation. Left conjunctiva is injected. No abrasions or ulcers are noted. No foreign bodies. Patient will be treated for conjunctivitis with ofloxacin drops. Vital signs are stable and she is in no acute distress. She will be discharged home at this time. She is in agreement with plan and voices understanding. All questions were answered. Disposition Clinical Impression: Conjunctivitis Disposition: HOME SELF-CARE Condition: Good Instructions: Ofloxacin (Into the eye), Conjunctivitis (ED) Additional Instructions: Please instill 1 drop into the left eye every 4 hours for the next 3-5 days. Please follow up with primary care provider within 1-2 days. Return to emergency department if symptoms should worsen or any concerns arise. Is patient prescribed a controlled substance at d/c from ED?: No Referrals: Jh Garcia DO [Primary Care Provider] - 1-2 days Time of Disposition: 22:25
== END 2018-06-19 22:35 | disposition home or self-care (01) ==
LOC: EC 21:49
DX: H10.9 Unspecified conjunctivitis (principal); M19.90 Unspecified osteoarthritis, unspecified site; M06.9 Rheumatoid arthritis, unspecified; Z85.828 Personal history of other malignant neoplasm of skin; Z90.49 Acquired absence of other specified parts of digestive tract; Z96.0 Presence of urogenital implants; Z96.653 Presence of artificial knee joint, bilateral; Z98.890 Other specified postprocedural states; Z88.6 Allergy status to analgesic agent; Z79.82 Long term (current) use of aspirin; Z79.899 Other long term (current) drug therapy
CPT/HCPCS: 99283

== ENCOUNTER 2018-07-03 07:24 | Day surgery (SDC) | payer MEDICARE ==
[2018-06-17 14:26] VITALS: BMI 22.4
[~2018-07-03 07:24] MED LIST: LIDOCAINE 1% 20 ML VIAL (10MG/ML) FOR IV START INTRADERMA PRN
[2018-07-03 08:12] VITALS: TEMP 97.4
[2018-07-03] MEDS: LACTATED RINGERS 1,000 ML IV SCH ×2 (08:12→08:50)
[2018-07-03 08:15] LABS: Glucose,Whole Blood 83 mg/dL (75-99)
[2018-07-03] MEDS ORDERED: PROPOFOL 10 MG/ML 20 ML VIAL IV ONE (08:51)
--- NOTE | 2018-07-03 09:14 | P.PCN ---
Date of Procedure: 07/03/18 Procedure(s) Performed: BRIEF HISTORY: Patient is a 78-year-old pleasant white female, scheduled for an elective colonoscopy as a part of lower abdominal pain and change in bowel habits. She is been having severe chronic constipation for the last 1 year duration. PROCEDURE PERFORMED: Colonoscopy. PREOPERATIVE DIAGNOSIS: Change in bowel habits/chronic constipation. IV sedation per Anesthesia. PROCEDURE: After informed consent was obtained, the patient, was brought into the endoscopy unit. IV sedation was administered by Anesthesia under continuous monitoring. Digital rectal examination was normal. Initially the Olympus CF- 160 flexible video colonoscope was then inserted in the rectum, gradually advanced into the cecum without any difficulty. Careful examination was performed as the scope was gradually being withdrawn. Ileocecal valve and the appendiceal orifice were visualized and appeared normal. Prep was fair.. Mucosa of the cecum, ascending colon, transverse colon, descending colon, sigmoid colon, and rectum appeared normal. Scattered sigmoid diverticulosis Retroflexion was performed in the rectum and no lesions were seen. The patient tolerated the procedure well. IMPRESSION: Normal-appearing colon from rectum to cecum with no evidence of colorectal neoplasia. Scattered small diverticulosis. RECOMMENDATIONS: Findings of this examination were discussed with the patient well his family. She was advised to continue with high-fiber diet and MiraLAX daily.
[2018-07-03 09:23] VITALS: BP 151/69; PULSE 67; RESP 18
== END 2018-07-03 10:14 | disposition home or self-care (01) ==
LOC: ORWHC2ENDO 07:24
PROVIDERS: ATTEND Internal Medicine Gastroenterology
DX: K57.30 Diverticulosis of large intestine without perforation or abscess without bleeding (principal); K21.9 Gastro-esophageal reflux disease without esophagitis; M06.9 Rheumatoid arthritis, unspecified; Z79.899 Other long term (current) drug therapy; Z88.6 Allergy status to analgesic agent; Z88.8 Allergy status to other drugs, medicaments and biological substances
CPT/HCPCS: 45378; J2704

== ENCOUNTER 2018-09-12 13:16 | Emergency (ER) | payer MEDICARE ==
[2018-09-12 13:24] VITALS: RESP 16; TEMP 99.1
[2018-09-12] MEDS ORDERED: SODIUM CHLORIDE 0.9% 500 ML 500 ML IV STA (13:55)
[2018-09-12 14:31] LABS: Glucose,Whole Blood 94 mg/dL (75-99)
[2018-09-12 14:42] LABS: Basophils % (A) 0 %; Eosinophils # (A) 0.2 k/uL (0-0.7); Eosinophils % (A) 3 %; HCT 40.5 % (34.0-46.0); HGB 13.6 gm/dL (11.4-16.0); Lymphocytes # (A) 2.1 k/uL (1.0-4.8); Lymphocytes % (A) 27 %; MCH 33.9 pg (25.0-35.0); MCHC 33.6 g/dL (31.0-37.0); MCV 100.8 fL (80.0-100.0); Macrocytosis Slight; Mean Platelet Volume 6.8; Monocytes # (A) 0.4 k/uL (0-1.0); Monocytes % (A) 6 %; Neutrophils # (A) 4.6 k/uL (1.3-7.7); Neutrophils % (A) 61 %; Platelet Count 200 k/uL (150-450); RBC 4.01 m/uL (3.80-5.40); RDW 14.2 % (11.5-15.5); WBC 7.5 k/uL (3.8-10.6)
[2018-09-12 14:52] LABS: Appearance,Urine Clear (Clear); Bilirubin,Urine Negative (Negative); Blood,Urine Trace (Negative); Color,Urine Yellow; Glucose,Urine (UA) Negative (Negative); Ketones,Urine Negative (Negative); Leukocyte Esterase,Urine Small (Negative); Mucus,Urine Rare /hpf; Nitrite,Urine Negative (Negative); PH, Urine 5.5 (5.0-8.0); Protein,Urine Trace (Negative); RBC,Urine 5 /hpf (0-5); Specific Gravity,Urine 1.012 (1.001-1.035); Squamous Epithelial Cell,Urine <1 /hpf (0-4); Urobilinogen,Urine <2.0 mg/dL (<2.0); WBC,Urine 10 /hpf (0-5)
[2018-09-12 14:52] LABS: Albumin 4.2 g/dL (3.5-5.0); Calcium 10.8 mg/dL (8.4-10.2); Potassium 3.6 mmol/L (3.5-5.1); Total Bilirubin 0.8 mg/dL (0.2-1.3); Total Protein 7.3 g/dL (6.3-8.2)
[2018-09-12 15:17] LABS: INR 0.9 (<1.2); Prothrombin Time 9.9 sec (9.0-12.0)
[2018-09-12 15:20] LABS: Partial Thromboplastin Time 20.4 sec (22.0-30.0)
--- NOTE | 2018-09-12 15:27 | CT ---
EXAMINATION TYPE: CT abdomen pelvis wo con DATE OF EXAM: 09/12/2018 COMPARISON: 02/25/2017 HISTORY: Lower abdominal and back pain with weakness x [address] DLP: 413.8 mGycm Examination of the solid and hollow viscera is limited given the lack of contrast. FINDINGS: LUNG BASES: No evidence for nodule. No evidence for infiltrate. Small sliding-type hiatal hernia note d. LIVER/GB: Cholecystectomy clips are in place. No space-occupying hepatic lesion. PANCREAS: No pancreatic mass identified. No inflammatory process seen. SPLEEN: No evidence for splenomegaly. No intrasplenic lesions seen. ADRENALS: No adrenal nodules identified. No evidence for thickening. KIDNEYS: There is bilateral nonobstructing nephrolithiasis. No hydronephrosis. No renal masses detect ed. BOWEL: Appendix has a normal appearance. No evidence of bowel obstruction. No inflammatory process. Lymph nodes: No evidence for adenopathy greater than 1 cm. Abdominal aorta: Atheromatous changes seen. No evidence for aneurysm. Genital organs: Calcified leiomyoma noted. Other: No significant abnormality. IMPRESSION: NONOBSTRUCTING BILATERAL NEPHROLITHIASIS.
--- NOTE | 2018-09-12 15:55 | ED ---
Abdominal Pain HPI - General Chief Complaint: Abdominal Pain Stated Complaint: Abd pain, lethargic Time Seen by Provider: 09/12/18 13:56 Source: patient Mode of arrival: wheelchair Limitations: no limitations - History of Present Illness Initial Comments: 78-year-old female past medical history of rheumatoid arthritis, hypoglycemia presenting today for chief complaint of abdominal pain 3 months, fatigue and weakness 2 weeks. Patient states she had lower abdominal pain continuously for the past 2 months she states is her lower abdomen and increases with fluid intake. Patient denies any fever, chills, vomiting, diarrhea, melena, constipation, hematochezia. Patient states that she has had on-and-off constipation however she had a normal bowel movement this morning. Patient denies any urgency, frequency, dysuria, hematuria. Patient does admit to chronic low back pain denies any current changes. Patient denies any upper back pain, chest pain, dyspnea, dyspnea on exertion. Patient states she has felt fatigued more than usual, at times weekly walking. Patient denies any palpitations, syncope. Patient does admit to a fall 2 months ago however she was evaluated at that time, denied head injury. She states she is currently in physical therapy for her chronic low back pain. Remainder of ROS negative. Upon arrival patient appears well, no signs of acute distress. Vital signs within acceptable limits. [id number]-[id number] glucose 94. - Related Data Home Medications Medication Instructions Recorded Confirmed Aspirin 81 mg PO Q48H 06/17/18 09/12/18 Multivit-Min/FA/Lycopen/Lutein 1 each PO DAILY 06/17/18 09/12/18 [Centrum Silver Tablet] Venlafaxine HCl [Effexor] 150 mg PO QAM 06/17/18 09/12/18 Calcium Carbonate/Vitamin D3 1 each PO BID 07/01/18 09/12/18 [Calcium 500-Vit D3 200 Tablet] Certolizumab Pegol [Cimzia] 1 dose SQ Q30D 07/01/18 09/12/18 Folic Acid 1 mg PO Q48H 07/01/18 09/12/18 Gabapentin [Neurontin] 100 mg PO TID 07/01/18 09/12/18 rOPINIRole HCL [Requip] 0.5 mg PO HS 07/01/18 09/12/18 Cyanocobalamin (Vitamin B-12) 1,000 mcg PO DAILY 09/12/18 09/12/18 [Vitamin B-12] [place]-3 Fatty Acids/Fish Oil [Fish 1 cap PO DAILY 09/12/18 09/12/18 Oil 1,000 mg Softgel] Previous Rx's Medication Instructions Recorded Cephalexin [Keflex] 500 mg PO Q12HR 7 Days #14 cap 09/12/18 Docusate [Colace] 100 mg PO DAILY 7 Days #7 capsule 09/12/18 Allergies Allergy/AdvReac Type Severity Reaction Status Date / Time etodolac [From Lodine] Allergy Rash/Hives Verified 09/12/18 14:15 nabumetone [From Relafen] Allergy Rash/Hives Verified 09/12/18 14:15 naproxen [From Naprosyn] Allergy Rash/Hives Verified 09/12/18 14:15 NSAIDS (Non-Steroidal Allergy Rash/Hives Verified 09/12/18 14:15 Anti-Inflamma Review of Systems ROS Statement: Those systems with pertinent positive or pertinent negative responses have been documented in the HPI. ROS Other: All systems not noted in ROS Statement are negative. Past Medical History Past Medical History: Cancer, GERD/Reflux, Osteoarthritis (OA), Pneumonia, Renal Disease, Rheumatoid Arthritis (RA) Additional Past Medical History / Comment(s): Spouse thinks pt may have the very beginnnings of dementia, arthritis in multiple joints, RLS, UTIs, stress headaches, pericardial effusion, pleurisy, Skin cancer on her nose. Cut on L finger. Kidney stones. History of Any Multi-Drug Resistant Organisms: None Reported Past Surgical History: Cholecystectomy, Joint Replacement, Orthopedic Surgery Additional Past Surgical History / Comment(s): Rotator cuff (R); Ric Knee Replacement; Panniculectomy, bilateral legs varicose vein surgery, colonoscopies -normal, bilateral cataract removal, FNA abdominal seroma, cystoscopy/bladder bx /lithotripsy with R ureteral stent. Past Anesthesia/Blood Transfusion Reactions: No Reported Reaction Additional Past Anesthesia/Blood Transfusion Reaction / Comment(s): Pt has received blood after panniculectomy without reaction. Past Psychological History: No Psychological Hx Reported Smoking Status: Never smoker - Past Family History Mother Family Medical History: Myocardial Infarction (OH) Additional Family Medical History / Comment(s): Mother at age 69 yrs after having the flu and complicated by a OH. Father Additional Family Medical History / Comment(s): IBS. Father at age 78yrs. General Exam - General Exam Comments Initial Comments: General: The patient is awake and alert, in no distress, and does not appear acutely ill. Eye: +3 mm pupils are equal, round and reactive to light, extra-ocular movements are intact. No nystagmus. There is normal conjunctiva bilaterally. No signs of icterus. Ears, nose, mouth and throat: There are moist mucous membranes and no oral lesions. Neck: The neck is supple, there is no tenderness or JVD. Cardiovascular: There is a regular rate and rhythm. No murmur, rub or gallop is appreciated. Respiratory: Lungs are clear to auscultation, respirations are non-labored, breath sounds are equal. No wheezes, stridor, rales, or rhonchi. Gastrointestinal: No noted diaphoresis, jaundice, pallor, protecting postures or squirming. Symmetrical pigmentation of abdomen without signs of inflammation.. Umbilicus mildline, inverted without swelling. No dilated veins. Abdomen no noted abdominal distention. No visible masses. No peristalsis, aortic pulsations, or ventral hernia. Bowel sounds audible in all 4 quadrants, unremarkable. No friction rubs or venous hums. No epigastic, hepatic or abdominal bruits. There is mild discomfort to palpation of the lower abdomen on each side to deep palpation. No rigidity or guarding. Liver edge, not palpable. Spleen edge, right and left kidney not palpable. Superior bladder margin non-tender. Special Testing: Negative Adrian, Rovsing, McBurney, Momo, cutaneous hyperesthesia. Iliopsoas and obturator tests negative bilaterally. Negative Heel Jar test. No CVA tenderness. Digital rectal exam deferred. Negative pavon turners or cullens sign Musculoskeletal: Normal ROM, no tenderness. Strength 5/5. Sensation intact. Radial pulses equal bilaterally 2+. Neurological: A&O x 3. CN II-XII intact, There are no obvious motor or sensory deficits. Coordination appears grossly intact. Speech is normal. Skin: Skin is warm and dry and no rashes or lesions are noted. No noted lower extremity edema Psychiatric: Cooperative, appropriate mood & affect, normal judgment. Limitations: no limitations Course Vital Signs 09/12/18 09/12/18 13:21 16:18 Temperature 99.1 F Pulse Rate 73 70 Respiratory 16 16 Rate Blood Pressure 144/84 157/72 O2 Sat by Pulse 100 99 Oximetry Medical Decision Making - Medical Decision Making 78yo with cc of abdominal pain x 3 months and fatigue x3 weeks. CT revealed large amount of stool no obstruction. Remainder unremarkable. Reviewed personally by myself as well as attending provider. Patient laboratory findings revealed increased creatinine, this is not consistent with acute kidney injury as well as an increased BUN concerning for dehydration. Urinalysis revealed small amount of leukocyte esterase and white blood cell concerning for infection. Remainder of laboratory findings unremarkable. Chest x-ray within normal limits. EKG stable from 04/2018. Patient is well- appearing, smiling appearing nontoxic or in acute distress. Abdominal exam benign. Pt given IV hydration. Pt drinking water in room. Given patient's symptoms appear chronic, patient is well-appearing, laboratories studies stable. I feel patient is stable for discharge with treatment for urinary tract infection, increased in fluid intake as well as use of stool softener and increase fiber for constipation. Patient is agreeable plan as well as discharge. Patient was discharged in stable condition appearing well after discussing the case at length with Dr. Frost I instructed patient follow-up with primary care provider in next 1-2 days. Return parameters were discussed at length patient verbalizes understanding. Patient denied questions upon discharge. - Lab Data Result diagrams: 09/12/18 14:19 09/12/18 14:19 Lab Results 09/12/18 09/12/18 09/12/18 Range/Units 14:15 14:19 14:19 WBC 7.5 (3.8-10.6) k/uL RBC 4.01 (3.80-5.40) m/uL Hgb 13.6 (11.4-16.0) gm/dL Hct 40.5 (34.0-46.0) % MCV 100.8 H (80.0-100.0) fL MCH 33.9 (25.0-35.0) pg MCHC 33.6 (31.0-37.0) g/dL RDW 14.2 (11.5-15.5) % Plt Count 200 (150-450) k/uL Neutrophils % 61 % Lymphocytes % 27 % Monocytes % 6 % Eosinophils % 3 % Basophils % 0 % Neutrophils # 4.6 (1.3-7.7) k/uL Lymphocytes # 2.1 (1.0-4.8) k/uL Monocytes # 0.4 (0-1.0) k/uL Eosinophils # 0.2 (0-0.7) k/uL Basophils # 0.0 (0-0.2) k/uL Macrocytosis Slight PT (9.0-12.0) sec INR (<1.2) APTT (22.0-30.0) sec Sodium 139 (137-145) mmol/L Potassium 3.6 (3.5-5.1) mmol/L Chloride 103 (98-107) mmol/L Carbon Dioxide 27 (22-30) mmol/L Anion Gap 9 mmol/L BUN 30 H (7-17) mg/dL Creatinine 1.47 H (0.52-1.04) mg/dL Est GFR (CKD-EPI)AfAm 39 (>60 ml/min/1.73 sqM) Est GFR (CKD-EPI)NonAf 34 (>60 ml/min/1.73 sqM) Glucose 106 H (74-99) mg/dL POC Glucose (mg/dL) (75-99) mg/dL POC Glu Beer Maker ID Plasma Lactic Acid Hebert (0.7-2.0) mmol/L Calcium 10.8 H (8.4-10.2) mg/dL Total Bilirubin 0.8 (0.2-1.3) mg/dL AST 52 H (14-36) U/L ALT 83 H (9-52) U/L Alkaline Phosphatase 57 (38-126) U/L Troponin I (0.000-0.034) ng/mL Total Protein 7.3 (6.3-8.2) g/dL Albumin 4.2 (3.5-5.0) g/dL Amylase 78 (30-110) U/L Lipase 112 (23-300) U/L Urine Color Yellow Urine Appearance Clear (Clear) Urine pH 5.5 (5.0-8.0) Ur Specific [place] 1.012 (1.001-1.035) Urine Protein Trace H (Negative) Urine Glucose (UA) Negative (Negative) Urine Ketones Negative (Negative) Urine Blood Trace H (Negative) Urine Nitrite Negative (Negative) Urine Bilirubin Negative (Negative) Urine Urobilinogen <2.0 (<2.0) mg/dL Ur Leukocyte Esterase Small H (Negative) Urine RBC 5 (0-5) /hpf Urine WBC 10 H (0-5) /hpf Ur Squamous Epith Cells <1 (0-4) /hpf Urine Mucus Rare H (None) /hpf 09/12/18 09/12/18 09/12/18 Range/Units 14:19 14:19 14:19 WBC (3.8-10.6) k/uL RBC (3.80-5.40) m/uL Hgb (11.4-16.0) gm/dL Hct (34.0-46.0) % MCV (80.0-100.0) fL MCH (25.0-35.0) pg MCHC (31.0-37.0) g/dL RDW (11.5-15.5) % Plt Count (150-450) k/uL Neutrophils % % Lymphocytes % % Monocytes % % Eosinophils % % Basophils % % Neutrophils # (1.3-7.7) k/uL Lymphocytes # (1.0-4.8) k/uL Monocytes # (0-1.0) k/uL Eosinophils # (0-0.7) k/uL Basophils # (0-0.2) k/uL Macrocytosis PT 9.9 (9.0-12.0) sec INR 0.9 (<1.2) APTT 20.4 L (22.0-30.0) sec Sodium (137-145) mmol/L Potassium (3.5-5.1) mmol/L Chloride (98-107) mmol/L Carbon Dioxide (22-30) mmol/L Anion Gap mmol/L BUN (7-17) mg/dL Creatinine (0.52-1.04) mg/dL Est GFR (CKD-EPI)AfAm (>60 ml/min/1.73 sqM) Est GFR (CKD-EPI)NonAf (>60 ml/min/1.73 sqM) Glucose (74-99) mg/dL POC Glucose (mg/dL) (75-99) mg/dL POC Glu Beer Maker ID Plasma Lactic Acid Hebert 1.1 (0.7-2.0) mmol/L Calcium (8.4-10.2) mg/dL Total Bilirubin (0.2-1.3) mg/dL AST (14-36) U/L ALT (9-52) U/L Alkaline Phosphatase (38-126) U/L Troponin I <0.012 (0.000-0.034) ng/mL Total Protein (6.3-8.2) g/dL Albumin (3.5-5.0) g/dL Amylase (30-110) U/L Lipase (23-300) U/L Urine Color Urine Appearance (Clear) Urine pH (5.0-8.0) Ur Specific [place] (1.001-1.035) Urine Protein (Negative) Urine Glucose (UA) (Negative) Urine Ketones (Negative) Urine Blood (Negative) Urine Nitrite (Negative) Urine Bilirubin (Negative) Urine Urobilinogen (<2.0) mg/dL Ur Leukocyte Esterase (Negative) Urine RBC (0-5) /hpf Urine WBC (0-5) /hpf Ur Squamous Epith Cells (0-4) /hpf Urine Mucus (None) /hpf 09/12/18 Range/Units 14:27 WBC (3.8-10.6) k/uL RBC (3.80-5.40) m/uL Hgb (11.4-16.0) gm/dL Hct (34.0-46.0) % MCV (80.0-100.0) fL MCH (25.0-35.0) pg MCHC (31.0-37.0) g/dL RDW (11.5-15.5) % Plt Count (150-450) k/uL Neutrophils % % Lymphocytes % % Monocytes % % Eosinophils % % Basophils % % Neutrophils # (1.3-7.7) k/uL Lymphocytes # (1.0-4.8) k/uL Monocytes # (0-1.0) k/uL Eosinophils # (0-0.7) k/uL Basophils # (0-0.2) k/uL Macrocytosis PT (9.0-12.0) sec INR (<1.2) APTT (22.0-30.0) sec Sodium (137-145) mmol/L Potassium (3.5-5.1) mmol/L Chloride (98-107) mmol/L Carbon Dioxide (22-30) mmol/L Anion Gap mmol/L BUN (7-17) mg/dL Creatinine (0.52-1.04) mg/dL Est GFR (CKD-EPI)AfAm (>60 ml/min/1.73 sqM) Est GFR (CKD-EPI)NonAf (>60 ml/min/1.73 sqM) Glucose (74-99) mg/dL POC Glucose (mg/dL) 94 (75-99) mg/dL POC Glu Beer Maker ID Tyesha Glass Plasma Lactic Acid Hebert (0.7-2.0) mmol/L Calcium (8.4-10.2) mg/dL Total Bilirubin (0.2-1.3) mg/dL AST (14-36) U/L ALT (9-52) U/L Alkaline Phosphatase (38-126) U/L Troponin I (0.000-0.034) ng/mL Total Protein (6.3-8.2) g/dL Albumin (3.5-5.0) g/dL Amylase (30-110) U/L Lipase (23-300) U/L Urine Color Urine Appearance (Clear) Urine pH (5.0-8.0) Ur Specific [place] (1.001-1.035) Urine Protein (Negative) Urine Glucose (UA) (Negative) Urine Ketones (Negative) Urine Blood (Negative) Urine Nitrite (Negative) Urine Bilirubin (Negative) Urine Urobilinogen (<2.0) mg/dL Ur Leukocyte Esterase (Negative) Urine RBC (0-5) /hpf Urine WBC (0-5) /hpf Ur Squamous Epith Cells (0-4) /hpf Urine Mucus (None) /hpf Disposition Clinical Impression: Constipation, Dehydration, UTI (urinary tract infection) Disposition: HOME SELF-CARE Condition: Good Instructions: Constipation (ED), Urinary Tract Infection in Women (ED), High Fiber Diet (ED) Additional Instructions: Please use medication as discussed. Please follow-up with family doctor in the next 1-2 days. Please return to emergency room if the symptoms increase or worsen or for any other concerns. Prescriptions: Cephalexin [Keflex] 500 mg PO Q12HR 7 Days #14 cap Docusate [Colace] 100 mg PO DAILY 7 Days #7 capsule Is patient prescribed a controlled substance at d/c from ED?: No Referrals: Jose,Jh, DO [Primary Care Provider] - 1-2 days Time of Disposition: 16:43
[2018-09-12 16:19] VITALS: PULSE 70
[2018-09-12 16:22] VITALS: BP 157/72
--- NOTE | 2018-09-12 16:23 | XR ---
EXAMINATION TYPE: XR chest 2V DATE OF EXAM: 09/12/2018 COMPARISON: April 2017 HISTORY: Shortness of breath TECHNIQUE: Frontal and lateral views of the chest are obtained. FINDINGS: Scattered senescent parenchymal changes noted. Hyperinflation compatible with COPD. No evidence for infiltrate. No evidence for atelectasis. Heart size is stable. Mediastinal structures are stable and grossly unremarkable. No evidence for hilar prominence. Degenerative changes dorsal spine. IMPRESSION: 1. No evidence for acute pulmonary disease.
== END 2018-09-12 16:58 | disposition home or self-care (01) ==
LOC: EC 13:16
DX: N39.0 Urinary tract infection, site not specified (principal); E86.0 Dehydration; K59.00 Constipation, unspecified; I44.0 Atrioventricular block, first degree; I45.10 Unspecified right bundle-branch block; R53.1 Weakness; G89.29 Other chronic pain; Z82.49 Family history of ischemic heart disease and other diseases of the circulatory system; M19.90 Unspecified osteoarthritis, unspecified site; M06.9 Rheumatoid arthritis, unspecified; G25.81 Restless legs syndrome; Z88.6 Allergy status to analgesic agent; Z79.82 Long term (current) use of aspirin; Z79.899 Other long term (current) drug therapy; Z85.828 Personal history of other malignant neoplasm of skin; Z96.653 Presence of artificial knee joint, bilateral; Z90.49 Acquired absence of other specified parts of digestive tract; Z87.442 Personal history of urinary calculi; Z96.0 Presence of urogenital implants; Z98.890 Other specified postprocedural states; Z83.79 Family history of other diseases of the digestive system; M54.5 Low back pain
CPT/HCPCS: 36415; 71046; 74176; 80053; 81001; 82150; 83605; 83690; 84484; 85025; 85610; 85730; 87086; 93005; 99284

== ENCOUNTER → 2018-09-17 | Outpatient (CLI) | payer MEDICARE ==
--- NOTE | 2018-09-18 10:09 | MR ---
EXAMINATION TYPE: MR lumbar spine wo con DATE OF EXAM: 09/17/2018 COMPARISON: None HISTORY: 78-year-old female degenerative disc disease, Back pain TECHNIQUE: Multiplanar, multisequence images of the lumbar spine were acquired. FINDINGS: Vertebral body heights are preserved. A T2 bright and T1 dark lesion within the right T11 vertebral body shows internal stippling suggestin g an atypical hemangioma. Heterogeneous marrow signal without suspicious bone marrow replacement. There is edematous Modic type I endplate change at L3-L4 with associated severe degenerative disc dis ease with loss of disc height and disc bulging. Additional severe degenerative disc disease at L2-L3. Other levels show variable disc desiccation, mild disc space narrowing, and bulging discs. Hypertrophic facet arthropathy mid to lower lumbar spine with ligamentum flavum thickening. There is a grade 1, nearly grade 2 retrolisthesis at L3-L4 and grade 1 retrolisthesis at L2-L3. Conus medullaris is normal. Dilated bile duct at 1.4 cm which is stable to slightly increased from 02/25/2017 and may be chronic f or the patient. Correlate with alkaline phosphatase and bilirubin levels. No prevertebral or paravert ebral soft tissue abnormality. At T12-L1, no spinal canal or neuroforaminal stenosis. At L1-L2, minimal disc bulging and facet degenerative change without significant canal or foraminal s tenosis. At L2-L3, there is facet arthropathy with grade 1 retrolisthesis. Endplate ridging may abut the trave rsing left L3 nerve root. There is mild right neural foraminal stenosis without significant spinal ca nal stenosis. At L3-L4, hypertrophic facet arthropathy with ligamentum flavum thickening. There is grade 1, nearly grade 2 retrolisthesis with abutment of the traversing bilateral L4 nerve roots. There is mild to mod erate spinal canal stenosis, mild to moderate right and moderate to severe left neuroforaminal stenos is. At L5-S1, bulging disc with hypertrophic facet arthropathy and ligamentum flavum thickening. Changes result in mild bilateral neuroforaminal stenosis. Disc material may abut the traversing left L5 nerve root. No spinal canal stenosis. At L5-S1, there is bulging disc with hypertrophic facet arthropathy and ligamentum flavum thickening. Changes result in mild bilateral neuroforaminal stenosis. No significant spinal canal stenosis. IMPRESSION: 1. Multilevel degenerative disc disease, fairly advanced at both L2-L3 and L3-L4. At L3-L4, there is associated edematous Modic type I endplate change. 2. Additional hypertrophic facet arthropathy and ligamentum flavum thickening especially in the mid t o lower lumbar spine. There is a resultant grade 1, nearly grade 2 retrolisthesis at L3-L4 and grade 1 retrolisthesis at L2-L3. 3. At L3-L4, changes result in a mild to moderate spinal canal stenosis with a moderate to severe lef t neuroforaminal stenosis. 4. Additional variable mild to moderate neuroforaminal narrowing as outlined above. There is also kelvin e lateral recess narrowing at various levels with abutment of the traversing nerve roots as outlined above. 5. The bile duct is dilated at 1.4 cm, similar to slightly increased from 02/25/2017. 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 Confirm with alkaline phosphatase and bilirubin levels.
== END ==
LOC: RADMRIMAIN 12:30
PROVIDERS: ATTEND Internal Medicine Rheumatology
DX: M48.061 Spinal stenosis, lumbar region without neurogenic claudication (principal); M99.73 Connective tissue and disc stenosis of intervertebral foramina of lumbar region; M43.16 Spondylolisthesis, lumbar region; M51.36 Other intervertebral disc degeneration, lumbar region; M46.96 Unspecified inflammatory spondylopathy, lumbar region; M24.28 Disorder of ligament, vertebrae
CPT/HCPCS: 72148

== ENCOUNTER 2018-10-06 06:48 | Emergency (ER) | payer MEDICARE ==
[2018-10-06 06:55] VITALS: TEMP 98
[2018-10-06] MEDS ORDERED: METOCLOPRAMIDE 5 MG/ML 2 ML VIAL IVP STA ×2 (07:43→10:30)
[2018-10-06] MEDS ORDERED: SODIUM CHLORIDE 0.9% 500 ML 500 ML IV STA (07:43)
[2018-10-06] MEDS ORDERED: diphenhydrAMINE 50 MG/ML 1 ML VIAL IVP STA (07:43)
--- NOTE | 2018-10-06 07:50 | ED ---
General Adult HPI - General Chief complaint: Headache Stated complaint: headache Time Seen by Provider: 10/06/18 07:10 Source: patient, RN notes reviewed Mode of arrival: ambulatory Limitations: no limitations - History of Present Illness Initial comments: Patient is a pleasant 78-year-old female presenting to the emergency Department with complaints of headache. Patient does get chronic headaches. Onset of headache was 3 days ago. Gradual onset. Headache has slowly progressively worsened since that time. Headache is diffuse. Patient did have some mild nausea earlier. No vomiting. No photophobia. No fever. No confusion. No weakness or visual changes. - Related Data Home Medications Medication Instructions Recorded Confirmed Aspirin 81 mg PO Q48H 06/17/18 10/06/18 Multivit-Min/FA/Lycopen/Lutein 1 tab PO DAILY 06/17/18 10/06/18 [Centrum Silver Tablet] Venlafaxine HCl [Effexor] 150 mg PO QAM 06/17/18 10/06/18 Calcium Carbonate/Vitamin D3 1 tab PO BID 07/01/18 10/06/18 [Calcium 500-Vit D3 200 Tablet] Certolizumab Pegol [Cimzia] 1 dose SQ Q30D 07/01/18 10/06/18 Folic Acid 1 mg PO Q48H 07/01/18 10/06/18 Gabapentin [Neurontin] 100 mg PO BID@0800,1200 07/01/18 10/06/18 rOPINIRole HCL [Requip] 0.5 mg PO HS 07/01/18 10/06/18 Cyanocobalamin (Vitamin B-12) 1,000 mcg PO DAILY 09/12/18 10/06/18 [Vitamin B-12] [place]-3 Fatty Acids/Fish Oil [Fish 1 cap PO DAILY 09/12/18 10/06/18 Oil 1,000 mg Softgel] Cephalexin [Keflex] 500 mg PO TID 10/06/18 10/06/18 Dicyclomine [Bentyl] 10 mg PO BID 10/06/18 10/06/18 Gabapentin [Neurontin] 300 mg PO HS 10/06/18 10/06/18 Methotrexate Sodium [Methotrexate] 20 mg PO FR 10/06/18 10/06/18 Omeprazole [PriLOSEC] 20 mg PO DAILY 10/06/18 10/06/18 Previous Rx's Medication Instructions Recorded Docusate [Colace] 100 mg PO DAILY 7 Days #7 capsule 09/12/18 Allergies Allergy/AdvReac Type Severity Reaction Status Date / Time etodolac [From Lodine] Allergy Rash/Hives Verified 10/06/18 10:18 nabumetone [From Relafen] Allergy Rash/Hives Verified 10/06/18 10:18 naproxen [From Naprosyn] Allergy Rash/Hives Verified 10/06/18 10:18 NSAIDS (Non-Steroidal Allergy Rash/Hives Verified 10/06/18 10:18 Anti-Inflamma Review of Systems ROS Statement: Those systems with pertinent positive or pertinent negative responses have been documented in the HPI. ROS Other: All systems not noted in ROS Statement are negative. Constitutional: Denies: fever Eyes: Denies: eye pain, vision change ENT: Denies: ear pain Respiratory: Denies: dyspnea Cardiovascular: Denies: chest pain Endocrine: Denies: fatigue Gastrointestinal: Reports: nausea. Denies: abdominal pain Genitourinary: Denies: dysuria Musculoskeletal: Denies: back pain Skin: Denies: rash Neurological: Reports: headache. Denies: weakness, confusion Past Medical History Past Medical History: Cancer, GERD/Reflux, Osteoarthritis (OA), Pneumonia, Renal Disease, Rheumatoid Arthritis (RA) Additional Past Medical History / Comment(s): Spouse thinks pt may have the very beginnnings of dementia, arthritis in multiple joints, RLS, UTIs, stress headaches, pericardial effusion, pleurisy, Skin cancer on her nose. Cut on L finger. Kidney stones. History of Any Multi-Drug Resistant Organisms: None Reported Past Surgical History: Cholecystectomy, Joint Replacement, Orthopedic Surgery Additional Past Surgical History / Comment(s): Rotator cuff (R); Ric Knee Replacement; Panniculectomy, bilateral legs varicose vein surgery, colonoscopies -normal, bilateral cataract removal, FNA abdominal seroma, cystoscopy/bladder bx /lithotripsy with R ureteral stent., Past Anesthesia/Blood Transfusion Reactions: No Reported Reaction Additional Past Anesthesia/Blood Transfusion Reaction / Comment(s): Pt has received blood after panniculectomy without reaction. Past Psychological History: No Psychological Hx Reported Smoking Status: Never smoker Past Alcohol Use History: None Reported Past Drug Use History: None Reported - Past Family History Mother Family Medical History: Myocardial Infarction ([place]) Additional Family Medical History / Comment(s): Mother at age 69 yrs after having the flu and complicated by a [place]. Father Additional Family Medical History / Comment(s): IBS. Father at age 78yrs. General Exam Limitations: no limitations General appearance: alert, in no apparent distress Head exam: Present: atraumatic Eye exam: Present: normal appearance, PERRL ENT exam: Present: normal oropharynx Neck exam: Present: normal inspection. Absent: tenderness, meningismus Respiratory exam: Present: normal lung sounds bilaterally Cardiovascular Exam: Present: regular rate, normal rhythm GI/Abdominal exam: Present: soft. Absent: tenderness Extremities exam: Present: normal inspection. Absent: pedal edema, calf tenderness Neurological exam: Present: alert, CN II-XII intact. Absent: motor sensory deficit Expanded Neurological exam: Present: protecting the airway Patient oriented to: Present: person, place, time Speech: Present: fluid speech Cranial nerves: EOM's Intact: Normal, Facial Sensation: Normal Sensory exam: Upper Extremity Light Touch: Normal, Lower Extremity Light Touch: Normal Motor strength exam: RUE: 5, LUE: 5, RLE: 5, LLE: 5 Eye Response: (4) open spontaneously Motor Response: (6) obeys commands Verbal Response: (5) oriented Psychiatric exam: Present: normal affect, normal mood Skin exam: Present: normal color Course Vital Signs 10/06/18 06:52 Temperature 98.0 F Pulse Rate 63 Respiratory 17 Rate Blood Pressure 183/83 O2 Sat by Pulse 97 Oximetry - Reevaluation(s) Reevaluation #1: 10/06/18 11:37 Patient again reexamined and still feels no better. Case was discussed with Dr. Little, covering for Dr. Garcia, does recommend transfer to [facility] for neurology evaluation and MRI. 10/06/18 12:14 Case was discussed with Dr. Hill's at [facility], who will accept transfer. Medical Decision Making - Lab Data Result diagrams: 10/06/18 07:50 10/06/18 07:50 Lab Results 10/06/18 10/06/18 10/06/18 Range/Units 07:50 07:50 07:50 WBC 5.1 (3.8-10.6) k/uL RBC 3.62 L (3.80-5.40) m/uL Hgb 11.8 (11.4-16.0) gm/dL Hct 36.6 (34.0-46.0) % MCV 101.1 H (80.0-100.0) fL MCH 32.5 (25.0-35.0) pg MCHC 32.2 (31.0-37.0) g/dL RDW 14.5 (11.5-15.5) % Plt Count 210 (150-450) k/uL Neutrophils % (Manual) 47 % Lymphocytes % (Manual) 29 % Monocytes % (Manual) 17 % Eosinophils % (Manual) 7 % Basophils % (Manual) 1 % Myelocytes % 1 % Neutrophils # (Manual) 2.40 (1.3-7.7) k/uL Lymphocytes # (Manual) 1.48 (1.0-4.8) k/uL Monocytes # (Manual) 0.87 (0-1.0) k/uL Eosinophils # (Manual) 0.36 (0-0.7) k/uL Basophils # (Manual) 0.05 (0-0.2) k/uL Myelocytes # (Manual) 0.05 H (0) k/uL Nucleated RBCs 0 (0-0) /100 WBC Manual Slide Review Performed Macrocytosis Slight ESR 17 (0-20) mm/hr PT 10.4 (9.0-12.0) sec INR 1.0 (<1.2) APTT 23.5 (22.0-30.0) sec Sodium 139 (137-145) mmol/L Potassium 4.3 (3.5-5.1) mmol/L Chloride 105 (98-107) mmol/L Carbon Dioxide 31 H (22-30) mmol/L Anion Gap 3 mmol/L BUN 17 (7-17) mg/dL Creatinine 0.84 (0.52-1.04) mg/dL Est GFR (CKD-EPI)AfAm 78 (>60 ml/min/1.73 sqM) Est GFR (CKD-EPI)NonAf 67 (>60 ml/min/1.73 sqM) Glucose 99 (74-99) mg/dL Calcium 9.6 (8.4-10.2) mg/dL Total Bilirubin 0.7 (0.2-1.3) mg/dL AST 83 H (14-36) U/L ALT 93 H (9-52) U/L Alkaline Phosphatase 71 (38-126) U/L Total Protein 5.9 L (6.3-8.2) g/dL Albumin 3.3 L (3.5-5.0) g/dL - Radiology Data Radiology results: report reviewed (Computed tomography scan of the brain shows indeterminant low-attenuation area left cerebellar hemisphere that could be related to subacute ischemia. MRI may be beneficial. CT angiogram of the neck shows no acute process.) Disposition Clinical Impression: Cephalgia Disposition: OTHER INSTITUTION NOT DEFINED Is patient prescribed a controlled substance at d/c from ED?: No Referrals: Jh Garcia DO [Primary Care Provider] - 1-2 days Time of Disposition: 12:15 - Out of Hospital Transfer - Req. Specs Out of Hospital Transfer - Requested Specifics: Other Emergency Center
[2018-10-06 08:25] LABS: HCT 36.6 % (34.0-46.0); HGB 11.8 gm/dL (11.4-16.0); MCH 32.5 pg (25.0-35.0); MCHC 32.2 g/dL (31.0-37.0); MCV 101.1 fL (80.0-100.0); Macrocytosis Slight; Mean Platelet Volume 6.8; Platelet Count 210 k/uL (150-450); RBC 3.62 m/uL (3.80-5.40); RDW 14.5 % (11.5-15.5); WBC 5.1 k/uL (3.8-10.6)
[2018-10-06 08:42] LABS: Albumin 3.3 g/dL (3.5-5.0); Calcium 9.6 mg/dL (8.4-10.2); Potassium 4.3 mmol/L (3.5-5.1); Total Bilirubin 0.7 mg/dL (0.2-1.3); Total Protein 5.9 g/dL (6.3-8.2)
[2018-10-06 08:50] LABS: Partial Thromboplastin Time 23.5 sec (22.0-30.0); Prothrombin Time 10.4 sec (9.0-12.0)
[2018-10-06 09:05] LABS: Myelocytes # (M) 0.05 k/uL (0); Myelocytes % 1 %; Nucleated Red Blood Cells 0 /100 WBC (0-0)
[2018-10-06 09:07] LABS: Basophils # (M) 0.05 k/uL (0-0.2); Eosinophils # (M) 0.36 k/uL (0-0.7); Lymphocytes # (M) 1.48 k/uL (1.0-4.8); Monocytes # (M) 0.87 k/uL (0-1.0); Neutrophils % (M) 47 %; Total Cells Counted 200
[2018-10-06 09:47] LABS: Erythrocyte Sedimentation Rate 17 mm/hr (0-20)
--- NOTE | 2018-10-06 10:06 | CT ---
EXAMINATION TYPE: CT brain wo con DATE OF EXAM: 10/06/2018 COMPARISON: Prior CT brain 05/06/2018 HISTORY: Severe headache CT DLP: 985.9 mGycm Automated exposure control for dose reduction was used. Helical imaging through the brain FINDINGS: Question some asymmetric low attenuation involving the left cerebellar hemisphere axial image 15 not seen on prior exam. There is no evident hemorrhage or hydrocephalus. Cortical atrophy is noted. Cereb ral vascular calcifications are present. White matter low-attenuation again noted in the periventricu lar locations. Calvarium is intact. IMPRESSION: INDETERMINATE LOW-ATTENUATION LEFT CEREBELLAR HEMISPHERE COULD BE DUE TO SUBACUTE ISCHEMIA. MRI MAY B E OF BENEFIT.
[2018-10-06] MEDS ORDERED: methylPREDNISolone SOD SUCCI 125 MG/2 ML VIAL IV STA (10:30)
[2018-10-06] MEDS ORDERED: MORPHINE SULFATE 2 MG/ML SYRINGE IVP STA (10:30)
[2018-10-06] MEDS ORDERED: SODIUM CHLORIDE 0.9% 250 ML IV STA (10:30)
--- NOTE | 2018-10-06 11:08 | CT ---
EXAMINATION TYPE: CT angio head neck DATE OF EXAM: 10/06/2018 HISTORY: Severe headache COMPARISON: CT brain same date CT DLP: 301 mGycm. Automated Exposure Control for Dose Reduction was Utilized. TECHNIQUE: CTA scan of the neck and brain is performed with IV Contrast, patient injected with 65 mL of Isovue 370, axial images are obtained, coronal and sagittal reformatted images are reviewed. Thre e-D reconstructed images are created on an independent workstation and reviewed. Three-dimensional re constructions also performed of the [place]. FINDINGS: Carotid/Vascular Structures: Transverse aorta is patent. Super aortic branch vessels are patent. No e vident carotid stenosis, no dissection or evident embolus. [place] is patent. No evident ane urysm or embolus, no dissection. Other: Degenerative disc changes in the visualized spine. Vertebral arteries are patent. IMPRESSION: No significant abnormality is seen.
[2018-10-06 14:29] VITALS: BP 149/91; PULSE 76; RESP 18
== END 2018-10-06 12:18 | disposition short-term general hospital (02) ==
LOC: EC 06:48
DX: R51 Headache (principal); R11.0 Nausea; K21.9 Gastro-esophageal reflux disease without esophagitis; M06.9 Rheumatoid arthritis, unspecified; M19.90 Unspecified osteoarthritis, unspecified site; G25.81 Restless legs syndrome; Z88.6 Allergy status to analgesic agent; Z79.82 Long term (current) use of aspirin; Z79.899 Other long term (current) drug therapy; Z87.440 Personal history of urinary (tract) infections; Z85.828 Personal history of other malignant neoplasm of skin; Z87.442 Personal history of urinary calculi; Z96.653 Presence of artificial knee joint, bilateral; Z96.0 Presence of urogenital implants
CPT/HCPCS: 36415; 80053; 85652; 85025; 85610; 85730; 70496; 70450; 70498; 99284; 96374; 96375 ×3; 96376; 96361 ×2; J1200; J2765; J2930; J2270; Q9967

== ENCOUNTER → 2018-10-07 | Outpatient (CLI) | payer OTHER ==
--- NOTE | 2018-10-07 18:37 | MR ---
EXAMINATION TYPE: MR brain wo/w con DATE OF EXAM: 10/07/2018 COMPARISON: 02/24/2017 HISTORY: Attentuation, left cerebellum, possible stroke TECHNIQUE: Multiplanar, multisequence images of the brain and brainstem is performed without and with IV contras t, utilizing 6 mL intravenous Gadavist . FINDINGS: There is cerebral cortical atrophy. There is no mass effect nor midline shift. There is no evidence of intracranial hemorrhage. There is no evidence of cortical infarct. There is no sign of an acute cerebellar infarct. There are small areas of slight increased signal in the cate posteriorly o n the FLAIR and T2 images. There is some thinning of the corpus callosum. Sella turcica appears normal. The contrast images show no pathologic enhancement. There is normal contrast opacification of the ant erior middle and posterior cerebral arteries. There is normal contrast opacification of the venous si nuses. IMPRESSION: Mild cerebral atrophy. No acute intracranial abnormality. No evidence of cerebellar infar ct. Mild white matter changes in the posterior cate consistent with microvascular ischemia. No change compared to old exam.
== END | disposition home or self-care (01) ==
LOC: RADMRIMAIN 16:25
PROVIDERS: ATTEND Psychiatry & Neurology Neurology
DX: G31.9 Degenerative disease of nervous system, unspecified (principal); I67.82 Cerebral ischemia
CPT/HCPCS: 70553; A9585

== ENCOUNTER 2018-10-18 09:40 | Day surgery (SDC) | payer MEDICARE, OTHER ==
[2018-10-16 11:53] VITALS: BMI 22.6
[~2018-10-18 09:40] MED LIST changes: +LACTATED RINGERS 1,000 ML IV SCH; -LIDOCAINE 1% 20 ML VIAL (10MG/ML) FOR IV START INTRADERMA PRN
[2018-10-18 10:07] VITALS: RESP 16; TEMP 97.7
[2018-10-18] MEDS ORDERED: LIDOCAINE 1% 20 ML VIAL (10MG/ML) FOR IV START INTRADERMA ONE (10:15)
[2018-10-18] MEDS ORDERED: PROPOFOL 10 MG/ML 20 ML VIAL IV ONE (11:10)
--- NOTE | 2018-10-18 11:22 | P.PCN ---
Date of Procedure: 10/18/18 Procedure(s) Performed: BRIEF HISTORY: Patient is a 78-year-old, pleasant, white female, scheduled for an upper endoscopy as a part of evaluation of severe epigastric pain for the last 2 months duration. Symptoms are worse with eating and sometimes pain lasts all day. Recent CAT scan of abdomen without contrast was unremarkable. She since can for an upper endoscopy to evaluate further. PROCEDURE PERFORMED: Esophagogastroduodenoscopy with biopsy. PREOPERATIVE DIAGNOSIS: Chronic epigastric pain of 3 months duration. IV sedation per anesthesia. PROCEDURE: After informed consent was obtained, the patient was brought into the endoscopy unit. IV sedation was administered by Anesthesia under continuous monitoring. Initially the Olympus GIF-140 video endoscope was inserted into the mouth. Esophagus intubated without any difficulty. It was gradually advanced into the stomach and duodenum and carefully examined. The bulb and the second part of the duodenum appeared normal. The scope at this time was withdrawn to the stomach, adequately insufflated with air, and upon careful examination, mucosa of the antrum, had mild gastritis and biopsies were done from this area. The body, cardia and the fundus appeared normal. The scope was then withdrawn into the esophagus. Small to moderate size hiatal hernia noted. The GE junction was located at 36 cm from the incisors. There were linear erosions and circumferential erythema the GE junction consistent with LA grade C reflux esophagitis. Rest of the esophagus appeared normal and the patient tolerated the procedure well. IMPRESSION: 1. Linear erosions with one superficial ulceration at the GE junction consistent with LA grade C reflux esophagitis. 2. Sized paraesophageal hiatal hernia. RECOMMENDATIONS: The findings of this examination were discussed with the patient as well as a family. She was advised to follow with the biopsy results. In the meantime she will continue with Prilosec 20 mg daily and follow antireflux measures. She'll be seen in office in 6 weeks..
[2018-10-18 11:55] VITALS: BP 155/80; PULSE 62
== END 2018-10-18 12:28 | disposition home or self-care (01) ==
LOC: ORWHC2ENDO 09:40
PROVIDERS: ATTEND Internal Medicine Gastroenterology
DX: K29.50 Unspecified chronic gastritis without bleeding (principal); K22.10 Ulcer of esophagus without bleeding; K21.0 Gastro-esophageal reflux disease with esophagitis; K44.9 Diaphragmatic hernia without obstruction or gangrene; G89.29 Other chronic pain; E78.5 Hyperlipidemia, unspecified; M06.9 Rheumatoid arthritis, unspecified; M19.90 Unspecified osteoarthritis, unspecified site; Z79.899 Other long term (current) drug therapy; Z88.6 Allergy status to analgesic agent; Z91.09 Other allergy status, other than to drugs and biological substances; Z96.653 Presence of artificial knee joint, bilateral
CPT/HCPCS: 88305; 43239; J2704

== ENCOUNTER 2018-12-19 22:30 | Observation (INO) | payer MEDICARE ==
[2018-12-19] MEDS ORDERED: SODIUM CHLORIDE 0.9% 1,000 ML IV STA (22:56)
--- NOTE | 2018-12-19 23:01 | ED ---
General Adult HPI - General Chief complaint: Syncope Stated complaint: syncope Time Seen by Provider: 12/19/18 22:49 Source: patient, EMS, RN notes reviewed Mode of arrival: EMS Limitations: no limitations - History of Present Illness Initial comments: Patient is a pleasant 78-year-old female presenting to the emergency department following a syncopal episode. Patient was sitting down on the couch at that time. Patient became unresponsive for approximately 1 minute and returned to normal. Shortly after this patient had a second episode of similar duration. No history of similar symptoms previously. Patient is symptom-free at this time. Patient did have a headache earlier in the day however patient does have chronic frequent headaches that are similar. No chest pain or dyspnea. No abdominal or back pain. No headache now or during the episode. EMS found blood sugar of 66. - Related Data Home Medications Medication Instructions Recorded Confirmed Aspirin 81 mg PO Q48H 06/17/18 12/19/18 Multivit-Min/FA/Lycopen/Lutein 1 tab PO DAILY 06/17/18 12/19/18 [Centrum Silver Tablet] Venlafaxine HCl [Effexor] 150 mg PO QAM 06/17/18 12/19/18 Calcium Carbonate/Vitamin D3 1 tab PO BID 07/01/18 12/19/18 [Calcium 500-Vit D3 200 Tablet] Certolizumab Pegol [Cimzia] 1 dose SQ Q30D 07/01/18 12/19/18 Folic Acid 1 mg PO Q48H 07/01/18 12/19/18 Gabapentin [Neurontin] 100 mg PO TID 07/01/18 12/19/18 rOPINIRole HCL [Requip] 0.5 mg PO HS 07/01/18 12/19/18 Cyanocobalamin (Vitamin B-12) 1,000 mcg PO DAILY 09/12/18 12/19/18 [Vitamin B-12] [place]-3 Fatty Acids/Fish Oil [Fish 1 cap PO DAILY 09/12/18 12/19/18 Oil 1,000 mg Softgel] Dicyclomine [Bentyl] 10 mg PO ACHS 10/06/18 12/19/18 Methotrexate Sodium [Methotrexate] 20 mg PO FR 10/06/18 12/19/18 Acetaminophen-Codeine 300-30mg 1 tab PO DAILY PRN 12/19/18 12/19/18 [Tylenol w/codeine #3] Baclofen 10 mg PO TID 12/19/18 12/19/18 Omeprazole 40 mg PO DAILY 12/19/18 12/19/18 Topiramate [Topamax] 100 mg PO BID 12/19/18 12/19/18 Allergies Allergy/AdvReac Type Severity Reaction Status Date / Time etodolac [From Lodine] Allergy Rash/Hives Verified 12/19/18 23:43 nabumetone [From Relafen] Allergy Rash/Hives Verified 12/19/18 23:43 naproxen [From Naprosyn] Allergy Rash/Hives Verified 12/19/18 23:43 NSAIDS (Non-Steroidal Allergy Rash/Hives Verified 12/19/18 23:43 Anti-Inflamma Review of Systems ROS Statement: Those systems with pertinent positive or pertinent negative responses have been documented in the HPI. ROS Other: All systems not noted in ROS Statement are negative. Constitutional: Denies: fever Eyes: Denies: eye pain ENT: Denies: ear pain Respiratory: Denies: cough Cardiovascular: Denies: chest pain Endocrine: Denies: fatigue Gastrointestinal: Denies: abdominal pain Genitourinary: Denies: dysuria Musculoskeletal: Denies: back pain Skin: Denies: rash Neurological: Reports: as per HPI. Denies: weakness Past Medical History Past Medical History: Cancer, GERD/Reflux, Osteoarthritis (OA), Pneumonia, Renal Disease, Rheumatoid Arthritis (RA) Additional Past Medical History / Comment(s): Spouse thinks pt may have the very beginnnings of dementia, arthritis in multiple joints, RLS, UTIs, stress headaches, pericardial effusion, pleurisy, Skin cancer on her nose. Cut on L finger. Kidney stones. History of Any Multi-Drug Resistant Organisms: None Reported Past Surgical History: Cholecystectomy, Joint Replacement, Orthopedic Surgery Additional Past Surgical History / Comment(s): Rotator cuff (R); Ric Knee Replacement; Panniculectomy, bilateral legs varicose vein surgery, colonoscopies-normal, bilateral cataract removal, FNA abdominal seroma, cystoscopy/bladder bx/lithotripsy with R ureteral stent., Past Anesthesia/Blood Transfusion Reactions: No Reported Reaction Additional Past Anesthesia/Blood Transfusion Reaction / Comment(s): Pt has received blood after panniculectomy without reaction. Past Psychological History: No Psychological Hx Reported Smoking Status: Never smoker Past Alcohol Use History: None Reported Past Drug Use History: None Reported - Past Family History Mother Family Medical History: Myocardial Infarction ([place]) Additional Family Medical History / Comment(s): Mother at age 69 yrs after having the flu and complicated by a [place]. Father Additional Family Medical History / Comment(s): IBS. Father at age 78yrs. General Exam Limitations: no limitations General appearance: alert, in no apparent distress Head exam: Present: atraumatic, normocephalic Eye exam: Present: normal appearance, PERRL, EOMI. Absent: nystagmus ENT exam: Present: normal oropharynx Neck exam: Present: normal inspection Respiratory exam: Present: normal lung sounds bilaterally Cardiovascular Exam: Present: regular rate, normal rhythm Expanded Peripheral pulses: 2+: Radial (R), Radial (L), Dorsalis Pedis (R), Dorsalis Pedis (L) GI/Abdominal exam: Present: soft. Absent: tenderness Extremities exam: Present: normal inspection. Absent: pedal edema, calf tenderness Neurological exam: Present: alert, oriented X3, CN II-XII intact. Absent: motor sensory deficit Expanded Neurological exam: Present: protecting the airway Patient oriented to: Present: person, place, time Speech: Present: fluid speech Cranial nerves: EOM's Intact: Normal, Facial Sensation: Normal Sensory exam: Upper Extremity Light Touch: Normal, Lower Extremity Light Touch: Normal Motor strength exam: RUE: 5, LUE: 5, RLE: 5, LLE: 5 Eye Response: (4) open spontaneously Motor Response: (6) obeys commands Verbal Response: (5) oriented Psychiatric exam: Present: normal affect, normal mood Skin exam: Present: normal color Course Vital Signs 12/19/18 12/20/18 22:36 00:30 Temperature 97.5 F L Pulse Rate 61 53 L Respiratory 18 18 Rate Blood Pressure 150/64 138/67 O2 Sat by Pulse 95 97 Oximetry EKG Findings - EKG Comments: EKG Findings:: Sinus bradycardia 59. For screening AV block with a MS of 306. QRS 146. QT 456. QTc 451. Normal axis. Right bundle branch block. No acute ST change. Medical Decision Making - Medical Decision Making Patient reevaluated and resting comfortably in bed. Patient updated on results and plan. Dr. Garcia has been paged for admission. - Lab Data Result diagrams: 12/19/18 22:46 12/19/18 22:46 Lab Results 12/19/18 12/19/18 12/19/18 Range/Units 22:46 22:46 22:46 WBC 6.1 (3.8-10.6) k/uL RBC 3.81 (3.80-5.40) m/uL Hgb 12.3 (11.4-16.0) gm/dL Hct 38.5 (34.0-46.0) % MCV 101.1 H (80.0-100.0) fL MCH 32.3 (25.0-35.0) pg MCHC 32.0 (31.0-37.0) g/dL RDW 13.5 (11.5-15.5) % Plt Count 202 (150-450) k/uL Neutrophils % 43 % Lymphocytes % 41 % Monocytes % 6 % Eosinophils % 6 % Basophils % 1 % Neutrophils # 2.7 (1.3-7.7) k/uL Lymphocytes # 2.5 (1.0-4.8) k/uL Monocytes # 0.4 (0-1.0) k/uL Eosinophils # 0.3 (0-0.7) k/uL Basophils # 0.0 (0-0.2) k/uL Macrocytosis Slight PT 10.0 (9.0-12.0) sec INR 0.9 (<1.2) APTT 23.0 (22.0-30.0) sec Sodium 141 (137-145) mmol/L Potassium 4.2 (3.5-5.1) mmol/L Chloride 113 H (98-107) mmol/L Carbon Dioxide 23 (22-30) mmol/L Anion Gap 5 mmol/L BUN 22 H (7-17) mg/dL Creatinine 0.90 (0.52-1.04) mg/dL Est GFR (CKD-EPI)AfAm 72 (>60 ml/min/1.73 sqM) Est GFR (CKD-EPI)NonAf 62 (>60 ml/min/1.73 sqM) Glucose 70 L (74-99) mg/dL POC Glucose (mg/dL) (75-99) mg/dL POC Glu Sagger Filler ID Calcium 9.4 (8.4-10.2) mg/dL Magnesium 2.1 (1.6-2.3) mg/dL Total Bilirubin 0.2 (0.2-1.3) mg/dL AST 22 (14-36) U/L ALT 28 (9-52) U/L Alkaline Phosphatase 77 (38-126) U/L Troponin I (0.000-0.034) ng/mL Total Protein 6.3 (6.3-8.2) g/dL Albumin 3.8 (3.5-5.0) g/dL 12/19/18 12/20/18 Range/Units 22:46 00:37 WBC (3.8-10.6) k/uL RBC (3.80-5.40) m/uL Hgb (11.4-16.0) gm/dL Hct (34.0-46.0) % MCV (80.0-100.0) fL MCH (25.0-35.0) pg MCHC (31.0-37.0) g/dL RDW (11.5-15.5) % Plt Count (150-450) k/uL Neutrophils % % Lymphocytes % % Monocytes % % Eosinophils % % Basophils % % Neutrophils # (1.3-7.7) k/uL Lymphocytes # (1.0-4.8) k/uL Monocytes # (0-1.0) k/uL Eosinophils # (0-0.7) k/uL Basophils # (0-0.2) k/uL Macrocytosis PT (9.0-12.0) sec INR (<1.2) APTT (22.0-30.0) sec Sodium (137-145) mmol/L Potassium (3.5-5.1) mmol/L Chloride (98-107) mmol/L Carbon Dioxide (22-30) mmol/L Anion Gap mmol/L BUN (7-17) mg/dL Creatinine (0.52-1.04) mg/dL Est GFR (CKD-EPI)AfAm (>60 ml/min/1.73 sqM) Est GFR (CKD-EPI)NonAf (>60 ml/min/1.73 sqM) Glucose (74-99) mg/dL POC Glucose (mg/dL) 116 H (75-99) mg/dL POC Glu Sagger Filler ID Martita Glass Calcium (8.4-10.2) mg/dL Magnesium (1.6-2.3) mg/dL Total Bilirubin (0.2-1.3) mg/dL AST (14-36) U/L ALT (9-52) U/L Alkaline Phosphatase (38-126) U/L Troponin I <0.012 (0.000-0.034) ng/mL Total Protein (6.3-8.2) g/dL Albumin (3.5-5.0) g/dL - Radiology Data Radiology results: report reviewed (Computed tomography scan of the brain reveals no acute process), image reviewed (Chest x-ray shows no acute process) Disposition Clinical Impression: Syncope Disposition: ADMITTED IP TO THIS HOSP Is patient prescribed a controlled substance at d/c from ED?: No Referrals: Jh Garcia DO [Primary Care Provider] - 1-2 days Decision Time: 00:58
[2018-12-19 23:17] LABS: Basophils % (A) 1 %; Eosinophils # (A) 0.3 k/uL (0-0.7); Eosinophils % (A) 6 %; HCT 38.5 % (34.0-46.0); HGB 12.3 gm/dL (11.4-16.0); Lymphocytes # (A) 2.5 k/uL (1.0-4.8); Lymphocytes % (A) 41 %; MCH 32.3 pg (25.0-35.0); MCV 101.1 fL (80.0-100.0); Macrocytosis Slight; Mean Platelet Volume 7.1; Monocytes # (A) 0.4 k/uL (0-1.0); Monocytes % (A) 6 %; Neutrophils # (A) 2.7 k/uL (1.3-7.7); Neutrophils % (A) 43 %; Platelet Count 202 k/uL (150-450); RBC 3.81 m/uL (3.80-5.40); RDW 13.5 % (11.5-15.5); WBC 6.1 k/uL (3.8-10.6)
[2018-12-19 23:28] LABS: INR 0.9 (<1.2)
[2018-12-19 23:30] LABS: Albumin 3.8 g/dL (3.5-5.0); Calcium 9.4 mg/dL (8.4-10.2); Magnesium 2.1 mg/dL (1.6-2.3); Potassium 4.2 mmol/L (3.5-5.1); Total Bilirubin 0.2 mg/dL (0.2-1.3); Total Protein 6.3 g/dL (6.3-8.2)
--- NOTE | 2018-12-19 23:34 | CT ---
EXAM: CT Head Without Intravenous Contrast CLINICAL HISTORY: ITS.REASON CT Reason: syncope TECHNIQUE: Axial computed tomography images of the head/brain without intravenous contrast. CTDI is 49.1 mGy and DLP is 1160 mGy-cm. This CT exam was performed using one or more of the following dose reduction techniques: automated exposure control, adjustment of the mA and/or kV according to patient size, and/or use of iterative reconstruction technique. COMPARISON: CT head on 10/06/2018 FINDINGS: Brain: No acute infarct or hemorrhage identified. No extra-axial fluid collection. No mass effect or midline shift. Stable areas of hypoattenuation in the supratentorial white matter likely represent chronic small vessel ischemic changes. Ventricles and sulci: Stable mild prominence of the ventricles and sulci is likely secondary to cerebral volume loss. Skull: Normal. No bony lesion or fracture. Subcutaneous tissues: Normal. Sinuses: Mild mucosal thickening in the ethmoid air cells. Orbits: Bilateral lens implants. Other: Atherosclerotic calcifications in the intracranial vasculature. IMPRESSION: 1. No acute intracranial abnormality. 2. Stable mild chronic small vessel ischemic changes and cerebral volume loss.
--- NOTE | 2018-12-19 23:36 | XR ---
EXAM: XR Chest, 2 Views CLINICAL HISTORY: ITS.REASON XR Reason: syncope TECHNIQUE: Frontal and lateral views of the chest. COMPARISON: Chest radiograph on 09/12/2018 FINDINGS: Hardware: None. Lungs/pleura: Normal. No focal consolidation. No pleural effusion or pneumothorax. Heart/mediastinum: Borderline size of the cardiac silhouette. Atherosclerotic calcifications in the aorta. Soft tissues: Unremarkable. Bones: No acute fracture. Degenerative changes of the acromioclavicular joints and spine. Upper abdomen: Normal. IMPRESSION: No acute disease identified.
[2018-12-20 00:52] LABS: Glucose,Whole Blood 116 mg/dL (75-99)
[2018-12-20] MEDS ORDERED: NALOXONE 0.4 MG/ML 1 ML VIAL IV PRN (00:58)
[2018-12-20] MEDS ORDERED: SODIUM CHLORIDE 0.9% 1,000 ML IV SCH (01:00)
--- NOTE | 2018-12-20 08:44 | US ---
EXAMINATION TYPE: US carotid duplex BILAT DATE OF EXAM: 12/20/2018 COMPARISON: NONE CLINICAL HISTORY: syncope. 1 episode of syncope, no h/o stroke EXAM MEASUREMENTS: RIGHT: Peak Systolic Velocity (PSV) cm/sec ----- Right CCA: 102.5 ----- Right ICA: 129.9 ----- Right ECA: 93.4 ICA/CCA ratio: 1.3 RIGHT: End Diastole cm/sec ----- Right CCA: 13.8 ----- Right ICA: 28.2 ----- Right ECA: 9.9 LEFT: Peak Systolic Velocity (PSV) cm/sec ----- Left CCA: 107.3 ----- Left ICA: 99.3 ----- Left ECA: 111.7 ICA/CCA ratio: 1.2 LEFT: End Diastole cm/sec ----- Left CCA: 11.7 ----- Left ICA: 14.6 ----- Left ECA: 0.0 VERTEBRALS (direction of flow): Right Vertebral: Antegrade Left Vertebral: Antegrade Rhythm: Normal Mild heterogeneous plaque at bilateral bulbs with no significant stenosis seen. IMPRESSION: 1. Mild heterogeneous plaque with no significant hemodynamic stenosis as visualized. Criteria for Assigning % of Stenosis / Diameter reduction (Estimation based on the indirect measurements of the internal carotid artery velocities (ICA PSV). 1. Normal (no stenosis)=ICA PSV < 125 cm/s: ratio < 2.0: ICA EDV<40 cm/s. 2. Less than 50% stenosis=ICA PSV < 125 cm/s: ratio < 2.0: ICA EDV<40 cm/s. 3. 50 to 69% stenosis=ICA PSV of 125 to 230 cm/s: ration 2.0 ? 4.0: ICA EDV 40-100 cm/s. 4. Greater than 70% stenosis to near occlusion= ICA PSV > 230 cm/s: ratio > 4.0: ICA EDV > 100 cm/s. 5. Near occlusion= ICA PSV velocities may be low or undetectable: variable ratio and ICA EDV. 6. Total occlusion=unable to detect flow.
[2018-12-20] MEDS ORDERED: MULTIVITAMINS, THERA 1 EACH TAB PO SCH (12:00)
[2018-12-20] MEDS ORDERED: PANTOPRAZOLE 40 MG TABLET PO SCH (12:00)
[2018-12-20] MEDS ORDERED: NON-FORMULARY DRUG (Omega-3 Fatty Acids/Fish Oil [Fish Oil 1,000 Mg Softgel] 1 CAP) PO SCH (12:00)
[2018-12-20] MEDS ORDERED: METHOTREXATE SODIUM 2.5 MG TAB PO SCH (12:00)
[2018-12-20] MEDS ORDERED: ASPIRIN 81 MG PO SCH (12:00)
[2018-12-20] MEDS ORDERED: FOLIC ACID 1 MG TAB PO SCH (12:00)
[2018-12-20] MEDS ORDERED: GABAPENTIN 100 MG CAP PO SCH (12:00)
[2018-12-20] MEDS ORDERED: DICYCLOMINE 10 MG CAP PO SCH (12:30)
[2018-12-20 14:43] VITALS: BP 132/77; PULSE 66; RESP 18; TEMP 98
--- NOTE | 2018-12-20 14:48 | P.CRDCN ---
History of Present Illness History of present illness: This is a pleasant 78-year-old female past medical history significant for rheumatoid arthritis, gastroesophageal reflux disease, restless leg syndrome and skin cancer. She denies history of coronary artery disease, hypertension, dyslipidemia or diabetes mellitus. She does not follow with a customer care agent for any reason. We've been asked to see her in consultation secondary to a syncopal episode. She states she was sitting on the couch with her playing edema and her phone when her she became acting very bewildered and became acutely diaphoretic and pale and later had back on the back of the couch and lost consciousness briefly. He called EMS and the patient states by the time they arrived she was awake but very disoriented. She denies any symptoms of chest discomfort, shortness of breath, dizziness or palpitations preceding the event or thereafter. She is seen and examined resting comfortably in bed in no acute distress. EKG reveals sinus bradycardia heart rate of 59 with a first-degree AV block and a right bundle branch block pattern. Chest x-ray is negative for acute cardiopulmonary process. CT of the brain is negative for an acute intracranial abnormality with stable mild chronic small vessel ischemic changes of cerebral volume loss. Bilateral carotid duplex obtained is negative for significant hemodynamic stenosis. Laboratory data reviewed, WBC 6.1, hemoglobin 12.3, platelets 202, sodium 141, potassium 4.2, creatinine 0.9, magnesium 2.1, cardiac enzymes negative 3, TSH 1.14. She takes no daily cardiac medications. She underwent an echocardiogram in 2014 at which time she had a very large pericardial effusion however LV was normal size and function with ejection fraction 60-65%, mild TR, mild MR and mild aortic valve sclerosis without stenosis. At the time of my exam: CONSTITUTIONAL: Denies fever. Denies chills. EYES: Denies blurred vision. Denies vision changes. Denies eye pain. EARS, NOSE, MOUTH & THROAT: Denies headache. Denies sore throat. Denies ear pain. CARDIOVASCULAR: Denies chest pain. Denies shortness of breath. Denies orthopnea. Denies PND. Denies palpitations. RESPIRATORY: Denies cough. GASTROINTESTINAL: Denies abdominal pain. Denies diarrhea. Denies constipation. Denies nausea. Denies vomiting. MUSCULOSKELETAL: Denies myalgias. INTEGUMENTARY: Denies pruitis. Denies rash. NEUROLOGIC: Denies numbness. Denies tingling. Denies weakness. PSYCHIATRIC: Denies anxiety. Denies depression. ENDOCRINE: Denies fatigue. Denies weight change. Denies polydipsia. Denies polyurina. GENITOURINARY: Denies burning, hematuria or urgency with micturation. HEMATOLOGIC: Denies history of anemia. Denies bleeding. Blood pressure 132/77 heart rate 66 afebrile maintaining oxygen saturation on room air GENERAL: This is a 78-year-old female in no apparent distress at the time of my examination. HEENT: Head is atraumatic, normocephalic. Pupils are equal, round. Sclerae anicteric. Conjunctivae are clear. Mucous membranes of the mouth are moist. Neck is supple. There is no jugular venous distention. No carotid bruit is heard. LUNGS: Clear to auscultation no wheezes, rales or rhonchi. No chest wall tendern ess is noted on palpation or with deep breathing. HEART: Regular rate and rhythm with systolic ejection murmur at the base, no rubs or gallops. S1 and S2 heard. ABDOMEN: Soft, nontender. Bowel sounds are heard. No organomegaly noted. EXTREMITIES: No evidence of peripheral edema and no calf tenderness noted. VASCULAR: Radial and dorsalis pedis pulses palpated, no evidence of clubbing. NEUROLOGIC: Patient is awake, alert and oriented x3. ASSESSMENT Syncope Heart murmur suggestive of aortic stenosis PLAN An acute coronary event has been ruled out. Obtain 2-D echocardiogram and Doppler study to assess cardiac structure and function. Telemetry tracings have been unremarkable for an acute arrhythmia. Apply 30 day event monitor in follow-up in the office with Dr. Napier thereafter. Thank you kindly for this consultation. Nurse Practitioner note has been reviewed, I agree with a documented findings and plan of care. Patient was seen and examined. Past Medical History Past Medical History: Cancer, GERD/Reflux, Osteoarthritis (OA), Pneumonia, Renal Disease, Rheumatoid Arthritis (RA) Additional Past Medical History / Comment(s): Spouse thinks pt may have the very beginnnings of dementia, arthritis in multiple joints, RLS, UTIs, stress headaches, pericardial effusion, pleurisy, Skin cancer on her nose. Cut on L finger. Kidney stones. History of Any Multi-Drug Resistant Organisms: None Reported Past Surgical History: Cholecystectomy, Joint Replacement, Orthopedic Surgery Additional Past Surgical History / Comment(s): Rotator cuff (R); Ric Knee Replacement; Panniculectomy, bilateral legs varicose vein surgery, colonoscopies-normal, bilateral cataract removal, FNA abdominal seroma, cystoscopy/bladder bx/lithotripsy with R ureteral stent., Past Anesthesia/Blood Transfusion Reactions: No Reported Reaction Additional Past Anesthesia/Blood Transfusion Reaction / Comment(s): Pt has r eceived blood after panniculectomy without reaction. Past Psychological History: No Psychological Hx Reported Smoking Status: Never smoker Past Alcohol Use History: None Reported Past Drug Use History: None Reported - Past Family History Mother Family Medical History: Myocardial Infarction ([place]) Additional Family Medical History / Comment(s): Mother at age 69 yrs after having the flu and complicated by a [place]. Father Additional Family Medical History / Comment(s): IBS. Father at age 78yrs. Medications and Allergies Home Medications Medication Instructions Recorded Confirmed Type Aspirin 81 mg PO Q48H 06/17/18 12/19/18 History Multivit-Min/FA/Lycopen/Lutein 1 tab PO DAILY 06/17/18 12/19/18 History [Centrum Silver Tablet] Venlafaxine HCl [Effexor] 150 mg PO QAM 06/17/18 12/19/18 History Calcium Carbonate/Vitamin D3 1 tab PO BID 07/01/18 12/19/18 History [Calcium 500-Vit D3 200 Tablet] Certolizumab Pegol [Cimzia] 1 dose SQ Q30D 07/01/18 12/19/18 History Folic Acid 1 mg PO Q48H 07/01/18 12/19/18 History Gabapentin [Neurontin] 100 mg PO TID 07/01/18 12/19/18 History rOPINIRole HCL [Requip] 0.5 mg PO HS 07/01/18 12/19/18 History Cyanocobalamin (Vitamin B-12) 1,000 mcg PO DAILY 09/12/18 12/19/18 History [Vitamin B-12] [place]-3 Fatty Acids/Fish Oil [Fish 1 cap PO DAILY 09/12/18 12/19/18 History Oil 1,000 mg Softgel] Dicyclomine [Bentyl] 10 mg PO ACHS 10/06/18 12/19/18 History Methotrexate Sodium [Methotrexate] 20 mg PO FR 10/06/18 12/19/18 History Acetaminophen-Codeine 300-30mg 1 tab PO DAILY PRN 12/19/18 12/19/18 History [Tylenol w/codeine #3] Baclofen 10 mg PO TID 12/19/18 12/19/18 History Omeprazole 40 mg PO DAILY 12/19/18 12/19/18 History Topiramate [Topamax] 100 mg PO BID 12/19/18 12/19/18 History Atorvastatin Calcium [Lipitor] 20 mg PO HS #30 tab 12/20/18 Rx Allergies Allergy/AdvReac Type Severity Reaction Status Date / Time etodolac [From Lodine] Allergy Rash/Hives Verified 12/19/18 23:43 nabumetone [From Relafen] Allergy Rash/Hives Verified 12/19/18 23:43 naproxen [From Naprosyn] Allergy Rash/Hives Verified 12/19/18 23:43 NSAIDS (Non-Steroidal Allergy Rash/Hives Verified 12/19/18 23:43 Anti-Inflamma Physical Exam Vitals: Vital Signs Temp Pulse Resp BP Pulse Ox 12/20/18 11:00 98.2 F 69 16 132/70 98 12/20/18 06:51 98.7 F 61 16 141/63 97 12/20/18 00:30 53 L 18 138/67 97 12/19/18 22:36 97.5 F L 61 18 150/64 95 Intake and Output 12/19/18 12/20/18 12/20/18 22:59 06:59 14:59 Other: Weight 63.503 kg Results 12/19/18 22:46 12/19/18 22:46 Cardiac Enzymes 12/19/18 12/19/18 12/20/18 Range/Units 22:46 22:46 07:13 AST 22 (14-36) U/L Troponin I <0.012 <0.012 (0.000-0.034) ng/mL Coagulation 12/19/18 Range/Units 22:46 PT 10.0 (9.0-12.0) sec APTT 23.0 (22.0-30.0) sec CBC 12/19/18 Range/Units 22:46 WBC 6.1 (3.8-10.6) k/uL RBC 3.81 (3.80-5.40) m/uL Hgb 12.3 (11.4-16.0) gm/dL Hct 38.5 (34.0-46.0) % Plt Count 202 (150-450) k/uL Comprehensive Metabolic Panel 12/19/18 Range/Units 22:46 Sodium 141 (137-145) mmol/L Potassium 4.2 (3.5-5.1) mmol/L Chloride 113 H (98-107) mmol/L Carbon Dioxide 23 (22-30) mmol/L BUN 22 H (7-17) mg/dL Creatinine 0.90 (0.52-1.04) mg/dL Glucose 70 L (74-99) mg/dL Calcium 9.4 (8.4-10.2) mg/dL AST 22 (14-36) U/L ALT 28 (9-52) U/L Alkaline Phosphatase 77 (38-126) U/L Total Protein 6.3 (6.3-8.2) g/dL Albumin 3.8 (3.5-5.0) g/dL Current Medications Generic Name Dose Route Start Last Admin Trade Name Freq PRN Reason Stop Dose Admin Sodium Chloride 1,000 mls @ 20 mls/hr 12/20/18 01:00 12/20/18 05:49 Saline 0.9% IV 20 mls/hr .Q24H MARIAA Administration Naloxone HCl 0.2 mg 12/20/18 00:58 Narcan IV Q2M PRN Opioid Reversal Intake and Output 12/19/18 12/20/18 12/20/18 22:59 06:59 14:59 Other: Weight 63.503 kg 12/19/18 22:46 12/19/18 22:46
[2018-12-20 15:25] LABS: Cholesterol 117 mg/dL (<200); HDL Cholesterol 73 mg/dL (40-60); LDL Cholesterol,Calculated 34 mg/dL (0-99); Triglycerides 49 mg/dL (<150)
--- NOTE | 2018-12-20 19:13 | ECHOF ---
Referral Reason:syncope MEASUREMENTS -------- HEIGHT: 167.6 cm WEIGHT: 63.5 kg BP: 141/63 RVIDd: 3.3 cm (< 3.3) IVSd: 1.2 cm (0.6 - 1.1) LVIDd: 4.2 cm (3.9 - 5.3) LVPWd: 1.2 cm (0.6 - 1.1) IVSs: 1.7 cm LVIDs: 2.7 cm LVPWs: 1.5 cm LA Diam: 3.6 cm (2.7 - 3.8) LAESV Index (A-L): 34.21 ml/m Ao Diam: 3.1 cm (2.0 - 3.7) AV Cusp: 2.0 cm (1.5 - 2.6) MV EXCURSION: 12.039 mm (> 18.000) MV EF SLOPE: 50 mm/s (70 - 150) EPSS: 0.4 cm MV E Shahbaz: 0.93 m/s MV DecT: 246 ms MV A Shahbaz: 1.14 m/s MV E/A Ratio: 0.81 AV maxP.86 mmHg AV meanP.49 mmHg AR PHT: 651 ms RAP: 5.00 mmHg RVSP: 24.73 mmHg FINDINGS -------- Sinus rhythm. This was a technically good study. The left ventricular size is normal. There is borderline concentric left ventricular hypertrophy. Overall left ventricular systolic function is normal with, an EF between 60 - 65 %. The right ventricle is mildly enlarged. LA is moderately dilated 34-39 ml/m2 The right atrium is normal in size. There is mild aortic valve sclerosis. Trace to mild aortic regurgitation. The mitral valve leaflets are mildly thickened. Mild mitral annular calcification present. Mild m itral regurgitation is present. Mild tricuspid regurgitation present. Right ventricular systolic pressure is normal at < 35 mmHg. Trace/mild (physiologic) pulmonic regurgitation. The aortic root size is normal. Normal inferior vena cava with normal inspiratory collapse consistent with estimated right atrial pre ssure of 5 mmHg. There is no pericardial effusion. CONCLUSIONS -------- 1. Sinus rhythm. 2. This was a technically good study. 3. The left ventricular size is normal. 4. There is borderline concentric left ventricular hypertrophy. 5. Overall left ventricular systolic function is normal with, an EF between 60 - 65 %. 6. The right ventricle is mildly enlarged. 7. LA is moderately dilated 34-39 ml/m2 8. The right atrium is normal in size. 9. There is mild aortic valve sclerosis. 10. Trace to mild aortic regurgitation. 11. The mitral valve leaflets are mildly thickened. 12. Mild mitral annular calcification present. 13. Mild mitral regurgitation is present. 14. Mild tricuspid regurgitation present. 15. Right ventricular systolic pressure is normal at < 35 mmHg. 16. Trace/mild (physiologic) pulmonic regurgitation. 17. The aortic root size is normal. 18. Normal inferior vena cava with normal inspiratory collapse consistent with estimated right atrial pressure of 5 mmHg. 19. There is no pericardial effusion. WASH DRILLER: Sayda Jorge RDCS
--- NOTE | 2018-12-20 19:45 | P.HPIM ---
History of Present Illness H&P Date: 12/20/18 Chief Complaint: Blank starring/near syncope This is a 78-year-old female admitted with complaints of near syncope/syncope, possible TIA in a patient with history of gastroesophageal reflux disease, osteoarthritis, cancer, renal disease, rheumatoid arthritis, and multiple other medical issues. Patient has a history of noncompliance and had stopped taking her meds 6 months ago. Essential Meds have been reintroduced as per PCP. Patient reports she was sitting on couch playing games on her phone, noted that she had a blank stare lasting for a few seconds, near syncope/ possible syncope-patient poor historian. Significant other currently not at bedside. Patient denies bladder or bowel loss. Denied chest pain, shortness of breath or abdominal pain. After the event patient became clammy, sweaty without nausea, vomiting or diarrhea. Denies lightheadedness dizziness or focal deficits. Denies headache. Blood sugar per EMS, 66. Brain CT, chest x-ray nonacute. Carotids reporting no hemodynamic significant stenosis. Troponins negative X 3. Magnesium 2.1, potassium 4.2, TSH 1.14. EKG sinus rhythm with first-degree AV block, right bundle branch block-further evaluation per cardiology pending. Echo reporting normal LV function, EF 60-65% with moderat ferny dilated LA. Afebrile.VSS. Review of Systems ROS Statement: Those systems with pertinent positive or pertinent negative responses have been documented in the HPI. CONSTITUTIONAL: Denies fever. Denies chills. EYES: Denies blurred vision. Denies vision changes. Denies eye pain. EARS, NOSE, MOUTH & THROAT: Denies headache. Denies sore throat. Denies ear pain. CARDIOVASCULAR: Denies chest pain. Denies shortness of breath. Denies orthopnea. Denies PND. Denies palpitations. RESPIRATORY: Denies cough. GASTROINTESTINAL: Denies abdominal pain. Denies diarrhea. Denies constipation. Denies nausea. Denies vomiting. MUSCULOSKELETAL: Denies myalgias. INTEGUMENTARY: Denies pruitis. Denies rash. NEUROLOGIC: As per HPI, Denies numbness. Denies tingling. Denies weakness. PSYCHIATRIC: Denies anxiety. Denies depression. ENDOCRINE: Denies fatigue. Denies weight change. Denies polydipsia. Denies polyurina. GENITOURINARY: Denies burning, hematuria or urgency with micturation. HEMATOLOGIC: Denies history of anemia. Denies bleeding. Past Medical History Past Medical History: Cancer, GERD/Reflux, Osteoarthritis (OA), Pneumonia, Renal Disease, Rheumatoid Arthritis (RA) Additional Past Medical History / Comment(s): Spouse thinks pt may have the very beginnnings of dementia, arthritis in multiple joints, RLS, UTIs, stress headaches, pericardial effusion, pleurisy, Skin cancer on her nose. Cut on L finger. Kidney stones. History of Any Multi-Drug Resistant Organisms: None Reported Past Surgical History: Cholecystectomy, Joint Replacement, Orthopedic Surgery Additional Past Surgical History / Comment(s): Rotator cuff (R); Ric Knee Replacement; Panniculectomy, bilateral legs varicose vein surgery, colonoscopies-normal, bilateral cataract removal, FNA abdominal seroma, cystoscopy/bladder bx/lithotripsy with R ureteral stent., Past Anesthesia/Blood Transfusion Reactions: No Reported Reaction Additional Past Anesthesia/Blood Transfusion Reaction / Comment(s): Pt has received blood after panniculectomy without reaction. Past Psychological History: No Psychological Hx Reported Smoking Status: Never smoker Past Alcohol Use History: None Reported Past Drug Use History: None Reported - Past Family History Mother Family Medical History: Myocardial Infarction ([place]) Additional Family Medical History / Comment(s): Mother at age 69 yrs after having the flu and complicated by a [place]. Father Additional Family Medical History / Comment(s): IBS. Father at age 78yrs. Medications and Allergies Home Medications Medication Instructions Recorded Confirmed Type Aspirin 81 mg PO Q48H 06/17/18 12/19/18 History Multivit-Min/FA/Lycopen/Lutein 1 tab PO DAILY 06/17/18 12/19/18 History [Centrum Silver Tablet] Venlafaxine HCl [Effexor] 150 mg PO QAM 06/17/18 12/19/18 History Calcium Carbonate/Vitamin D3 1 tab PO BID 07/01/18 12/19/18 History [Calcium 500-Vit D3 200 Tablet] Certolizumab Pegol [Cimzia] 1 dose SQ Q30D 07/01/18 12/19/18 History Folic Acid 1 mg PO Q48H 07/01/18 12/19/18 History Gabapentin [Neurontin] 100 mg PO TID 07/01/18 12/19/18 History rOPINIRole HCL [Requip] 0.5 mg PO HS 07/01/18 12/19/18 History Cyanocobalamin (Vitamin B-12) 1,000 mcg PO DAILY 09/12/18 12/19/18 History [Vitamin B-12] [place]-3 Fatty Acids/Fish Oil [Fish 1 cap PO DAILY 09/12/18 12/19/18 History Oil 1,000 mg Softgel] Dicyclomine [Bentyl] 10 mg PO ACHS 10/06/18 12/19/18 History Methotrexate Sodium [Methotrexate] 20 mg PO FR 10/06/18 12/19/18 History Acetaminophen-Codeine 300-30mg 1 tab PO DAILY PRN 12/19/18 12/19/18 History [Tylenol w/codeine #3] Baclofen 10 mg PO TID 12/19/18 12/19/18 History Omeprazole 40 mg PO DAILY 12/19/18 12/19/18 History Topiramate [Topamax] 100 mg PO BID 12/19/18 12/19/18 History Atorvastatin Calcium [Lipitor] 20 mg PO HS #30 tab 12/20/18 Rx Allergies Allergy/AdvReac Type Severity Reaction Status Date / Time etodolac [From Lodine] Allergy Rash/Hives Verified 12/19/18 23:43 nabumetone [From Relafen] Allergy Rash/Hives Verified 12/19/18 23:43 naproxen [From Naprosyn] Allergy Rash/Hives Verified 12/19/18 23:43 NSAIDS (Non-Steroidal Allergy Rash/Hives Verified 12/19/18 23:43 Anti-Inflamma Physical Exam Vitals: Vital Signs Temp Pulse Resp BP Pulse Ox 12/20/18 11:00 98.2 F 69 16 132/70 98 12/20/18 06:51 98.7 F 61 16 141/63 97 12/20/18 00:30 53 L 18 138/67 97 12/19/18 22:36 97.5 F L 61 18 150/64 95 Intake and Output 12/19/18 12/20/18 12/20/18 22:59 06:59 14:59 Other: Weight 63.503 kg PHYSICAL EXAM: VITAL SIGNS: As above GENERAL: Sitting up in stretcher, in no acute distress HEENT: Conjunctivae normal. eyes normal. NECK: No JVD. No thyroid enlargement. No LNs CARDIOVASCULAR: S1, S2 muffled. Systolic murmur RESPIRATION: Breath sounds diminished in the bases. No rhonchi or crackles. No bronchial breathing. ABDOMEN: Soft, nontender . No guarding. no masses palpable. No ascites, No organomegaly.Bowel sounds heard. LEGS: No edema. no swelling PSYCHIATRY: Alert and oriented -3, mood and affect normal. NERVOUS SYSTEM: Cranial N 2-12 grossly normal. Speech fluent and appropriate. Moves all 4 limbs. Diffuse weakness No focal deficits. Strength and sensation grossly intact. Skin: no lesions, no rash Joints: No active swelling. No inflammation. Lymphatic system. No LN neck axilla or groin. Results CBC & Chem 7: 12/19/18 22:46 04 22:46 Labs: Abnormal Lab Results - Last 24 Hours (Table) 12/19/18 12/19/18 12/20/18 Range/Units 22:46 22:46 00:37 MCV 101.1 H (80.0-100.0) fL Chloride 113 H (98-107) mmol/L BUN 22 H (7-17) mg/dL Glucose 70 L (74-99) mg/dL POC Glucose (mg/dL) 116 H (75-99) mg/dL Assessment and Plan Assessment: -Near syncope, syncope, possible TIA. Possible arrhythmia, possible seizure. -Gastroesophageal reflux disease -Osteoarthritis -Rheumatoid arthritis -Moderately dilated LA Plan: Continue on current medication regime ,monitoring and symptomatic treatment. Admit to observation.Cardiology evaluation pending. Home meds have been reviewed and resumed. Further recommendations to follow. The impression and plan of care has been dictated as directed. : I performed a history and examination of this patient, discussed the same with the dictator. I agree with the dictator's note ,documented as a scribe. Any additional findings or plans will be noted.
--- NOTE | 2018-12-20 19:52 | P.DS ---
Providers Date of admission: 12/20/18 01:00 Expected date of discharge: 12/20/18 Attending physician: Jh Garcia Consults: 12/20/18 00:59 Consult Physician Urgent Consulting Provider: Marika Napier Consult Reason/Comments: syncope Do you want consulting provider notified?: Yes Primary care physician: Jh Garcia [facility] Course: Final Diagnoses: -Near syncope, syncope, possible TIA. Possible arrhythmia, possible seizure. Acute coronary event ruled out as per cardiology. -Gastroesophageal reflux disease -Osteoarthritis -Rheumatoid arthritis -Moderately dilated LA Hospital course:This is a 78-year-old female admitted with complaints of near syncope/syncope, possible TIA in a patient with history of gastroesophageal reflux disease, osteoarthritis, cancer, renal disease, rheumatoid arthritis, and multiple other medical issues. Patient has a history of noncompliance and had stopped taking her meds 6 months ago. Essential Meds have been reintroduced as per PCP. Patient reports she was sitting on couch playing games on her phone, noted that she had a blank stare lasting for a few seconds, near syncope/ possible syncope-patient poor historian. Significant other currently not at bedside. Patient denies bladder or bowel loss. Denied chest pain, shortness of breath or abdominal pain. After the event patient became clammy, sweaty without nausea, vomiting or diarrhea. Denies lightheadedness dizziness or focal deficits. Denies headache. Blood sugar per EMS, 66. Brain CT, chest x-ray nonacute. Carotids reporting no hemodynamic significant stenosis. Troponins negative X 3. Magnesium 2.1, potassium 4.2, TSH 1.14. EKG sinus rhythm with first-degree AV block, right bundle branch block-further evaluation per cardiology pending. Echo reporting normal LV function, EF 60-65% with moderately dilated LA. Afebrile.VSS. Significant clinical improvement.Evaluated by cardiology, cleared for discharge with event monitor. Patient is being discharged home in a stable condition with guarded prognosis. EXAM: GENERAL: Alert and oriented 3, no acute distress HEENT: Conjunctivae normal. eyes normal. CARDIOVASCULAR: S1, S2 muffled. Systolic murmur RESPIRATION: Breath sounds diminished in the bases. No rhonchi or crackles. ABDOMEN: Soft, nontender . No guarding. no masses palpable. No ascites, No organomegaly.Bowel sounds heard. PSYCHIATRY: Alert and oriented -3, mood and affect normal. NERVOUS SYSTEM: Cranial N 2-12 grossly normal. Speech fluent and appropriate. Moves all 4 limbs. Diffuse weakness No focal deficits. Strength and sensation grossly intact. The impression and plan of care has been dictated as directed. : I performed a history and examination of this patient, discussed the same with the dictator. I agree with the dictator's note ,documented as a scribe. Any additional findings or plans will be noted. Time taken: 35 minutes Patient Condition at Discharge: Stable Plan - Discharge Summary New Discharge Prescriptions: New Atorvastatin Calcium [Lipitor] 20 mg PO HS #30 tab Continue Aspirin 81 mg PO Q48H Venlafaxine HCl [Effexor] 150 mg PO QAM Multivit-Min/FA/Lycopen/Lutein [Centrum Silver Tablet] 1 tab PO DAILY Gabapentin [Neurontin] 100 mg PO TID Certolizumab Pegol [Cimzia] 1 dose SQ Q30D Folic Acid 1 mg PO Q48H rOPINIRole HCL [Requip] 0.5 mg PO HS Calcium Carbonate/Vitamin D3 [Calcium 500-Vit D3 200 Tablet] 1 tab PO BID [place]-3 Fatty Acids/Fish Oil [Fish Oil 1,000 mg Softgel] 1 cap PO DAILY Cyanocobalamin (Vitamin B-12) [Vitamin B-12] 1,000 mcg PO DAILY Methotrexate Sodium [Methotrexate] 20 mg PO FR Dicyclomine [Bentyl] 10 mg PO ACHS Acetaminophen-Codeine 300-30mg [Tylenol w/codeine #3] 1 tab PO DAILY PRN PRN Reason: Headache Baclofen 10 mg PO TID Omeprazole 40 mg PO DAILY Topiramate [Topamax] 100 mg PO BID Discharge Medication List Aspirin 81 mg PO Q48H 06/17/18 [History] Multivit-Min/FA/Lycopen/Lutein [Centrum Silver Tablet] 1 tab PO DAILY 06/17/18 [History] Venlafaxine HCl [Effexor] 150 mg PO QAM 06/17/18 [History] Calcium Carbonate/Vitamin D3 [Calcium 500-Vit D3 200 Tablet] 1 tab PO BID 07/01/18 [History] Certolizumab Pegol [Cimzia] 1 dose SQ Q30D 07/01/18 [History] Folic Acid 1 mg PO Q48H 07/01/18 [History] Gabapentin [Neurontin] 100 mg PO TID 07/01/18 [History] rOPINIRole HCL [Requip] 0.5 mg PO HS 07/01/18 [History] Cyanocobalamin (Vitamin B-12) [Vitamin B-12] 1,000 mcg PO DAILY 09/12/18 [History] [place]-3 Fatty Acids/Fish Oil [Fish Oil 1,000 mg Softgel] 1 cap PO DAILY 09/12/18 [History] Dicyclomine [Bentyl] 10 mg PO ACHS 10/06/18 [History] Methotrexate Sodium [Methotrexate] 20 mg PO FR 10/06/18 [History] Acetaminophen-Codeine 300-30mg [Tylenol w/codeine #3] 1 tab PO DAILY PRN 12/19/18 [History] Baclofen 10 mg PO TID 12/19/18 [History] Omeprazole 40 mg PO DAILY 12/19/18 [History] Topiramate [Topamax] 100 mg PO BID 12/19/18 [History] Atorvastatin Calcium [Lipitor] 20 mg PO HS #30 tab 12/20/18 [Rx] Follow up Appointment(s)/Referral(s): Carie Roper MD [STAFF PHYSICIAN] - 1 Week Jh Garcia DO [Primary Care Provider] - 3 Days Marika Napier MD [STAFF PHYSICIAN] - 6 Weeks (after event monitor) Ambulatory/Diagnostic Orders: Complete Blood Count w/diff [LAB.AMB] Time Frame: 3 Days, Location: None Selected Activity/Diet/Wound Care/Special Instructions: Event monitor as per cardiology Lipid panel pending Discharge Disposition: HOME SELF-CARE
[2018-12-20] MEDS ORDERED: TOPIRAMATE 100 MG TAB PO SCH (21:00)
[2018-12-20] MEDS ORDERED: CALCIUM CARB-VIT D 500MG-200UN 1 EACH TAB PO SCH (21:00)
[2018-12-21] MEDS ORDERED: VENLAFAXINE HCL 75 MG TAB PO SCH (09:00)
[2018-12-21] MEDS ORDERED: CYANOCOBALAMIN 500 MCG TAB PO SCH (09:00)
== END 2018-12-20 18:20 | disposition home or self-care (01) ==
LOC: EC 22:30 → 1SOBS 12-20 01:00
PROVIDERS: ADMIT Family Medicine; ATTEND Family Medicine
DX: R55 Syncope and collapse (principal); R23.1 Pallor; R61 Generalized hyperhidrosis; I51.7 Cardiomegaly; K21.9 Gastro-esophageal reflux disease without esophagitis; I08.3 Combined rheumatic disorders of mitral, aortic and tricuspid valves; M06.9 Rheumatoid arthritis, unspecified; I44.0 Atrioventricular block, first degree; I45.10 Unspecified right bundle-branch block; Z91.19 Patient's noncompliance with other medical treatment and regimen; G25.81 Restless legs syndrome; R51 Headache; N28.9 Disorder of kidney and ureter, unspecified; F03.90 Unspecified dementia, unspecified severity, without behavioral disturbance, psychotic disturbance, mood disturbance, and anxiety; M13.0 Polyarthritis, unspecified; R00.1 Bradycardia, unspecified; Z79.891 Long term (current) use of opiate analgesic; Z79.82 Long term (current) use of aspirin; Z79.899 Other long term (current) drug therapy; Z88.6 Allergy status to analgesic agent; Z88.8 Allergy status to other drugs, medicaments and biological substances; Z87.01 Personal history of pneumonia (recurrent); Z87.442 Personal history of urinary calculi; Z85.828 Personal history of other malignant neoplasm of skin; Z87.09 Personal history of other diseases of the respiratory system; Z87.440 Personal history of urinary (tract) infections; Z90.49 Acquired absence of other specified parts of digestive tract; Z96.653 Presence of artificial knee joint, bilateral; Z82.49 Family history of ischemic heart disease and other diseases of the circulatory system
CPT/HCPCS: 96360; 96361; 99285; 36415 ×2; 93005; 93306; 93270; 80061; 80053; 84443; 83735; 84484 ×2; 85025; 85610; 85730; 71046; 93880; 70450; G0378; J8610

== ENCOUNTER 2019-03-01 20:05 | Emergency (ER) | payer MEDICARE ==
[2019-03-01 20:11] VITALS: TEMP 98.5
[2019-03-01] MEDS ORDERED: SODIUM CHLORIDE 0.9% 1,000 ML IV STA ×2 (20:24)
--- NOTE | 2019-03-01 20:26 | ED ---
Neuro HPI - General Chief Complaint: Neuro Symptoms/Deficit Stated Complaint: Confusion Time Seen by Provider: 03/01/19 20:24 Source: patient, RN notes reviewed, old records reviewed Mode of arrival: wheelchair Limitations: no limitations - History of Present Illness Is the patient presenting with stroke symptoms?: Yes -: hour(s) (Patient had symptoms tonight 2 hours prior to arrival), unknown ( then further elaborates the patient may have began to have some symptoms last night) Initial Comments: This is a 78-year-old female the ER for evaluation of significant history of CVA risk factors regarding CVA. Was at the patient's granddaughter suicidal tonight when she chemo she took a nap and became confused or was confused after trying to wake her up for nap. She had some confusion some slurred speech and some right-sided weakness. Positivesymptoms called EMS and patient's brought in the ER for evaluation. Location: speech, right face, dysarthria, right arm History of same: No Place: home Severity: mild Quality: weak, tingling Improves With: none Worsens With: none On Anticoagulants: No Context: other (Awoke with symptoms from nap) Associated Symptoms: confusion Treatments Prior to Arrival: none - Related Data Home Medications: Home Medications Medication Instructions Recorded Confirmed Aspirin 81 mg PO Q48H 06/17/18 03/01/19 Multivit-Min/FA/Lycopen/Lutein 1 tab PO DAILY 06/17/18 03/01/19 [Centrum Silver Tablet] Venlafaxine HCl [Effexor] 150 mg PO QAM 06/17/18 03/01/19 Calcium Carbonate/Vitamin D3 1 tab PO BID 07/01/18 03/01/19 [Calcium 500-Vit D3 200 Tablet] Certolizumab Pegol [Cimzia] 1 dose SQ Q30D 07/01/18 03/01/19 Folic Acid 1 mg PO Q48H 07/01/18 03/01/19 Gabapentin [Neurontin] 100 mg PO TID 07/01/18 03/01/19 rOPINIRole HCL [Requip] 0.5 mg PO HS 07/01/18 03/01/19 Cyanocobalamin (Vitamin B-12) 1,000 mcg PO DAILY 09/12/18 03/01/19 [Vitamin B-12] [place]-3 Fatty Acids/Fish Oil [Fish 1 cap PO DAILY 09/12/18 03/01/19 Oil 1,000 mg Softgel] Dicyclomine [Bentyl] 10 mg PO ACHS 10/06/18 03/01/19 Methotrexate Sodium [Methotrexate] 20 mg PO FR 10/06/18 03/01/19 Acetaminophen-Codeine 300-30mg 1 tab PO DAILY PRN 12/19/18 03/01/19 [Tylenol w/codeine #3] Baclofen 10 mg PO TID 12/19/18 03/01/19 Omeprazole 40 mg PO DAILY 12/19/18 03/01/19 Atorvastatin Calcium [Lipitor] 40 mg PO DAILY 03/01/19 03/01/19 Temazepam [Restoril] 15 mg PO HS 03/01/19 03/01/19 Topiramate [Topamax] 50 mg PO BID 03/01/19 03/01/19 Allergies/Adverse Reactions: Allergies Allergy/AdvReac Type Severity Reaction Status Date / Time etodolac [From Lodine] Allergy Rash/Hives Verified 03/01/19 21:06 nabumetone [From Relafen] Allergy Rash/Hives Verified 03/01/19 21:06 naproxen [From Naprosyn] Allergy Rash/Hives Verified 03/01/19 21:06 NSAIDS (Non-Steroidal Allergy Rash/Hives Verified 03/01/19 21:06 Anti-Inflamma Review of Systems ROS Statement: Those systems with pertinent positive or pertinent negative responses have been documented in the HPI. ROS Other: All systems not noted in ROS Statement are negative. General Exam - General Exam Comments Initial Comments: NIH of 6 Limitations: no limitations General appearance: alert, in no apparent distress Head exam: Present: atraumatic, normocephalic, normal inspection Eye exam: Present: normal appearance, PERRL, EOMI. Absent: scleral icterus, conjunctival injection, periorbital swelling ENT exam: Present: normal exam, mucous membranes moist Neck exam: Present: normal inspection. Absent: tenderness, meningismus, lymphadenopathy Respiratory exam: Present: normal lung sounds bilaterally. Absent: respiratory distress, wheezes, rales, rhonchi, stridor Cardiovascular Exam: Present: regular rate, normal rhythm, normal heart sounds. Absent: systolic murmur, diastolic murmur, rubs, gallop, clicks GI/Abdominal exam: Present: soft, normal bowel sounds. Absent: distended, tenderness, guarding, rebound, rigid Extremities exam: Present: normal inspection, full ROM, normal capillary refill. Absent: tenderness, pedal edema, joint swelling, calf tenderness Back exam: Present: normal inspection Neurological exam: Present: alert, oriented X3, CN II-XII intact Psychiatric exam: Present: normal affect, normal mood Skin exam: Present: warm, dry, intact, normal color. Absent: rash Stroke MDM - Lab Data Result diagrams: 03/01/19 20:22 03/01/19 20:22 Lab Results 03/01/19 03/01/19 03/01/19 Range/Units 20:18 20: 20:22 WBC 6.4 (3.8-10.6) k/uL RBC 3.90 (3.80-5.40) m/uL Hgb 12.2 (11.4-16.0) gm/dL Hct 38.5 (34.0-46.0) % MCV 98.8 (80.0-100.0) fL MCH 31.2 (25.0-35.0) pg MCHC 31.6 (31.0-37.0) g/dL RDW 13.2 (11.5-15.5) % Plt Count 225 (150-450) k/uL Neutrophils % 62 % Lymphocytes % 24 % Monocytes % 7 % Eosinophils % 4 % Basophils % 0 % Neutrophils # 4.0 (1.3-7.7) k/uL Lymphocytes # 1.6 (1.0-4.8) k/uL Monocytes # 0.5 (0-1.0) k/uL Eosinophils # 0.2 (0-0.7) k/uL Basophils # 0.0 (0-0.2) k/uL PT (9.0-12.0) sec INR (<1.2) APTT (22.0-30.0) sec Sodium 141 (137-145) mmol/L Potassium 4.7 (3.5-5.1) mmol/L Chloride 107 (98-107) mmol/L Carbon Dioxide 27 (22-30) mmol/L Anion Gap 7 mmol/L BUN 30 H (7-17) mg/dL Creatinine 1.06 H (0.52-1.04) mg/dL Est GFR (CKD-EPI)AfAm 59 (>60 ml/min/1.73 sqM) Est GFR (CKD-EPI)NonAf 51 (>60 ml/min/1.73 sqM) Glucose 88 (74-99) mg/dL POC Glucose (mg/dL) 83 (75-99) mg/dL POC Glu Capacitor Repairer [place] Calcium 9.2 (8.4-10.2) mg/dL Total Bilirubin 0.6 (0.2-1.3) mg/dL AST 41 H (14-36) U/L ALT 35 (9-52) U/L Alkaline Phosphatase 95 (38-126) U/L Creatine Kinase 59 (30-135) U/L Troponin I (0.000-0.034) ng/mL Total Protein 7.2 (6.3-8.2) g/dL Albumin 4.1 (3.5-5.0) g/dL Urine Color Urine Appearance (Clear) Urine pH (5.0-8.0) Ur Specific [place] (1.001-1.035) Urine Protein (Negative) Urine Glucose (UA) (Negative) Urine Ketones (Negative) Urine Blood (Negative) Urine Nitrite (Negative) Urine Bilirubin (Negative) Urine Urobilinogen (<2.0) mg/dL Ur Leukocyte Esterase (Negative) Urine RBC (0-5) /hpf Urine WBC (0-5) /hpf Urine WBC Clumps (None) /hpf Ur Squamous Epith Cells (0-4) /hpf Ur Renal Epithelial Cell (0) /hpf Urine Bacteria (None) /hpf Hyaline Casts (0-2) /lpf Urine Mucus (None) /hpf 03/01/19 03/01/19 03/01/19 Range/Units 20:22 20:22 21:52 WBC (3.8-10.6) k/uL RBC (3.80-5.40) m/uL Hgb (11.4-16.0) gm/dL Hct (34.0-46.0) % MCV (80.0-100.0) fL MCH (25.0-35.0) pg MCHC (31.0-37.0) g/dL RDW (11.5-15.5) % Plt Count (150-450) k/uL Neutrophils % % Lymphocytes % % Monocytes % % Eosinophils % % Basophils % % Neutrophils # (1.3-7.7) k/uL Lymphocytes # (1.0-4.8) k/uL Monocytes # (0-1.0) k/uL Eosinophils # (0-0.7) k/uL Basophils # (0-0.2) k/uL PT 10.2 (9.0-12.0) sec INR 0.9 (<1.2) APTT 24.3 (22.0-30.0) sec Sodium (137-145) mmol/L Potassium (3.5-5.1) mmol/L Chloride (98-107) mmol/L Carbon Dioxide (22-30) mmol/L Anion Gap mmol/L BUN (7-17) mg/dL Creatinine (0.52-1.04) mg/dL Est GFR (CKD-EPI)AfAm (>60 ml/min/1.73 sqM) Est GFR (CKD-EPI)NonAf (>60 ml/min/1.73 sqM) Glucose (74-99) mg/dL POC Glucose (mg/dL) (75-99) mg/dL POC Glu Capacitor Repairer ID Calcium (8.4-10.2) mg/dL Total Bilirubin (0.2-1.3) mg/dL AST (14-36) U/L ALT (9-52) U/L Alkaline Phosphatase (38-126) U/L Creatine Kinase (30-135) U/L Troponin I <0.012 (0.000-0.034) ng/mL Total Protein (6.3-8.2) g/dL Albumin (3.5-5.0) g/dL Urine Color Light Yellow Urine Appearance Clear (Clear) Urine pH 6.5 (5.0-8.0) Ur Specific [place] 1.012 (1.001-1.035) Urine Protein Negative (Negative) Urine Glucose (UA) Negative (Negative) Urine Ketones Negative (Negative) Urine Blood Negative (Negative) Urine Nitrite Negative (Negative) Urine Bilirubin Negative (Negative) Urine Urobilinogen <2.0 (<2.0) mg/dL Ur Leukocyte Esterase Moderate H (Negative) Urine RBC 8 H (0-5) /hpf Urine WBC 22 H (0-5) /hpf Urine WBC Clumps Few H (None) /hpf Ur Squamous Epith Cells <1 (0-4) /hpf Ur Renal Epithelial Cell <1 (0) /hpf Urine Bacteria Rare H (None) /hpf Hyaline Casts 1 (0-2) /lpf Urine Mucus Rare H (None) /hpf - NIH Stroke Scale 1a. Level of Consciousness: (1) not alert, arousable 1b. LOC Questions: (1) answers 1 question correctly 1c. LOC Commands: (0) performs tasks correctly 2. Best Gaze: (0) normal 3. Visual: (0) no visual loss 4. Facial Palsy: (1) minor paralysis 5a. Motor Arm Left: (0) no drift 5b. Motor Arm Right: (1) drift 6a. Motor Leg Left: (0) no drift 6b. Motor Leg Right: (0) no drift 7. Limb Ataxia: (0) absent 8. Sensory: (0) normal 9. Best Language: (1) mild/moderate aphasia 10. Dysarthria: (1) mild/moderate dysarthria 11. Extinction/Inattention: (0) no abnormality - Thrombolytic Inclusion/Exclusion Thrombolytic Exclusion Criteria: Symptom Onset > 3 Hours (Upon further questioning nurse that the patient may have had some mild symptoms yesterday) - Medical Decision Making 78 female the ER for CVA. Patient be transferred to [facility] for evaluation of neurology - Radiology Data Radiology results: report reviewed (CT brain CTA had not negative for acute disease), image reviewed - EKG Data -: EKG Interpreted by Me (EKG shows sinus rhythm rate of 64, [place] 282, QRS 146, QTc 468) Past Medical History Past Medical History: Cancer, GERD/Reflux, Osteoarthritis (OA), Pneumonia, Renal Disease, Rheumatoid Arthritis (RA) Additional Past Medical History / Comment(s): Spouse thinks pt may have the very beginnnings of dementia, arthritis in multiple joints, RLS, UTIs, stress headaches, pericardial effusion, pleurisy, Skin cancer on her nose. Cut on L finger. Kidney stones. History of Any Multi-Drug Resistant Organisms: None Reported Past Surgical History: Cholecystectomy, Joint Replacement, Orthopedic Surgery Additional Past Surgical History / Comment(s): Rotator cuff (R); Ric Knee Replacement; Panniculectomy, bilateral legs varicose vein surgery, colonoscopies-normal, bilateral cataract removal, FNA abdominal seroma, cystoscopy/bladder bx/lithotripsy with R ureteral stent., Past Anesthesia/Blood Transfusion Reactions: No Reported Reaction Additional Past Anesthesia/Blood Transfusion Reaction / Comment(s): Pt has received blood after panniculectomy without reaction. Past Psychological History: No Psychological Hx Reported Smoking Status: Never smoker Past Alcohol Use History: None Reported Past Drug Use History: None Reported - Past Family History Mother Family Medical History: Myocardial Infarction ([place]) Additional Family Medical History / Comment(s): Mother at age 69 yrs after having the flu and complicated by a [place]. Father Additional Family Medical History / Comment(s): IBS. Father at age 78yrs. Course Vital Signs 03/01/19 03/01/19 03/01/19 20:07 20:25 20:35 Temperature 98.5 F Pulse Rate 58 L 64 67 Respiratory 18 16 16 Rate Blood Pressure 173/69 167/81 175/79 O2 Sat by Pulse 98 100 Oximetry 03/01/19 03/01/19 03/01/19 20:45 20:55 21:05 Temperature Pulse Rate 67 65 Respiratory 18 18 16 Rate Blood Pressure 193/83 182/82 183/81 O2 Sat by Pulse 96 98 99 Oximetry 03/01/19 03/01/19 03/01/19 21:15 21:25 22:02 Temperature Pulse Rate 66 68 65 Respiratory 16 16 16 Rate Blood Pressure 183/81 168/75 180/86 O2 Sat by Pulse 99 98 96 Oximetry - Reevaluation(s) Reevaluation #1: 03/01/19 22:18 Code stroke was paged upon patient's arrival to Hospital Reevaluation #2: 03/01/19 22:18 Neuro intervention did evaluate patient not receive TPA candidate secondary to nonsignificant and discrete time of onset Critical Care Time Critical Care Time: Yes Total Critical Care Time: 31 Disposition Clinical Impression: Cerebrovascular accident Disposition: OTHER INSTITUTION NOT DEFINED Condition: Fair Is patient prescribed a controlled substance at d/c from ED?: No Referrals: Jh Garcia DO [Primary Care Provider] - 1-2 days - Out of Hospital Transfer - Req. Specs Out of Hospital Transfer - Requested Specifics: Other Emergency Center ([facility])
[2019-03-01 20:29] LABS: Glucose,Whole Blood 83 mg/dL (75-99)
[2019-03-01 20:42] LABS: Basophils % (A) 0 %; Eosinophils # (A) 0.2 k/uL (0-0.7); Eosinophils % (A) 4 %; HCT 38.5 % (34.0-46.0); HGB 12.2 gm/dL (11.4-16.0); Lymphocytes # (A) 1.6 k/uL (1.0-4.8); Lymphocytes % (A) 24 %; MCH 31.2 pg (25.0-35.0); MCHC 31.6 g/dL (31.0-37.0); MCV 98.8 fL (80.0-100.0); Mean Platelet Volume 6.7; Monocytes # (A) 0.5 k/uL (0-1.0); Monocytes % (A) 7 %; Neutrophils % (A) 62 %; Platelet Count 225 k/uL (150-450); RDW 13.2 % (11.5-15.5); WBC 6.4 k/uL (3.8-10.6)
[2019-03-01 20:49] LABS: Albumin 4.1 g/dL (3.5-5.0); Calcium 9.2 mg/dL (8.4-10.2); Total Bilirubin 0.6 mg/dL (0.2-1.3); Total Protein 7.2 g/dL (6.3-8.2)
[2019-03-01 20:53] LABS: Potassium 4.7 mmol/L (3.5-5.1)
[2019-03-01 20:59] LABS: INR 0.9 (<1.2); Partial Thromboplastin Time 24.3 sec (22.0-30.0); Prothrombin Time 10.2 sec (9.0-12.0)
--- NOTE | 2019-03-01 21:06 | CT ---
EXAMINATION TYPE: CT brain wo con for TPA DATE OF EXAM: 03/01/2019 COMPARISON: 12/19/2018 HISTORY: Neuro deficits. CT DLP: 923 mGycm Automated exposure control for dose reduction was used. FINDINGS: There is cerebral cortical atrophy. There is no mass effect nor midline shift. There is no sign of in tracranial hemorrhage. Calvarium is intact. There is mild hypodensity in the periventricular white ma tter. IMPRESSION: Cerebral atrophy and mild chronic small vessel ischemia. No acute intracranial abnormality. No signif icant change.
[2019-03-01 21:16] VITALS: RESP 16
[2019-03-01] MEDS ORDERED: ASPIRIN 81 MG PO STA (21:16)
[2019-03-01] MEDS ORDERED: ATORVASTATIN 80 MG TAB PO STA (21:17)
--- NOTE | 2019-03-01 21:31 | CT ---
EXAMINATION TYPE: CT angio head neck DATE OF EXAM: 03/01/2019 HISTORY: Neuro deficits. COMPARISON: 10/06/2018 CT DLP: 251.5 mGycm. Automated Exposure Control for Dose Reduction was Utilized. TECHNIQUE: CTA scan of the neck is performed with IV Contrast, patient injected with 50ml mL of Isov ue 370, axial images are obtained, coronal and sagittal reformatted images are reviewed. Three-D janeth nstructed images are created on an independent workstation and reviewed. FINDINGS: There is normal branching pattern of the great vessels on the aortic arch. There is bilateral arteria l flow in the subclavian arteries. There is arterial flow in the common internal and external carotid arteries bilaterally. There is mild plaque formation at the carotid artery bifurcations. There is osmany men narrowing less than 50%. There is arterial flow in both vertebral arteries. There is arterial flow in the vertebrobasilar artery system. There is arterial flow in the anterior m iddle and posterior cerebral arteries. There is no mass effect. There is no evidence of intracranial aneurysm or neovascularity. There is no evidence of carotid or vertebral artery aneurysm or dissection. There is normal contrast opacification of the venous sinuses. I see no evidence of intracranial arter ial stenosis. There are spondylotic changes in the cervical spine with disc space narrowing and spur formation from C4 to C7. IMPRESSION: Minimal plaque at the carotid artery bifurcations. No evidence of hemodynamic stenosis. Negative CT angiogram of the brain.
[2019-03-01 22:08] LABS: Appearance,Urine Clear (Clear); Bacteria,Urine Rare /hpf; Bilirubin,Urine Negative (Negative); Blood,Urine Negative (Negative); Color,Urine Light Yellow; Glucose,Urine (UA) Negative (Negative); Hyaline Casts,Urine 1 /lpf (0-2); Ketones,Urine Negative (Negative); Leukocyte Esterase,Urine Moderate (Negative); Mucus,Urine Rare /hpf; Nitrite,Urine Negative (Negative); PH, Urine 6.5 (5.0-8.0); Protein,Urine Negative (Negative); RBC,Urine 8 /hpf (0-5); Renal Epithelial Cells,Urine <1 /hpf (0); Specific Gravity,Urine 1.012 (1.001-1.035); Squamous Epithelial Cell,Urine <1 /hpf (0-4); Urobilinogen,Urine <2.0 mg/dL (<2.0)
--- NOTE | 2019-03-01 22:17 | XR ---
EXAM: XR Chest, 2 Views CLINICAL HISTORY: ITS.REASON XR Reason: altered mental status TECHNIQUE: Frontal and lateral views of the chest. COMPARISON: 12/19/18 FINDINGS: Lungs: Unremarkable. No consolidation. Pleural space: Unremarkable. No pneumothorax. Heart: Unremarkable. No cardiomegaly. Mediastinum: Unremarkable. Bones/joints: Unremarkable. IMPRESSION: No acute findings.
[2019-03-01 22:42] VITALS: BP 166/73; PULSE 70
== END 2019-03-01 22:43 | disposition other institution (70) ==
LOC: EC 20:05
DX: I63.9 Cerebral infarction, unspecified (principal); R29.706 NIHSS score 6; K21.9 Gastro-esophageal reflux disease without esophagitis; M06.9 Rheumatoid arthritis, unspecified; Z79.82 Long term (current) use of aspirin; Z79.899 Other long term (current) drug therapy; Z88.6 Allergy status to analgesic agent; Z96.653 Presence of artificial knee joint, bilateral
CPT/HCPCS: 36415; 93005; 80053; 82550; 84484; 85025; 85610; 85730; 81001; 87086; 71046; 70496; 70450; 70498; 99291; 96360; 96361; Q9967

== ENCOUNTER → 2019-03-10 | Outpatient (CLI) | payer MEDICARE ==
--- NOTE | 2019-03-10 14:34 | XR ---
Left knee HISTORY: Trauma and pain 2 days prior Reviews of the left knee No comparisons Patient is status post left knee arthroplasty. There is anatomic alignment. Soft tissue swelling is s uspected. Bone mineralization is reduced. No definite joint effusion. Soft tissue calcifications show nonaggressive appearance. IMPRESSION: No fracture or dislocation. Soft tissue swelling present. Postop change.
== END | disposition home or self-care (01) ==
LOC: RADXRMAIN 12:12
PROVIDERS: ATTEND Family Medicine
DX: M79.89 Other specified soft tissue disorders (principal); Z98.890 Other specified postprocedural states

== ENCOUNTER 2019-05-23 18:27 | Inpatient (IN) | payer MEDICARE ==
[2019-05-23] MEDS ORDERED: ACETAMINOPHEN TAB 500 MG TAB PO STA (19:20)
--- NOTE | 2019-05-23 19:23 | ED ---
General Adult HPI - General Chief complaint: Fever Stated complaint: Confusion Time Seen by Provider: 05/23/19 18:57 Source: patient, family, RN notes reviewed Mode of arrival: ambulatory Limitations: no limitations - History of Present Illness Initial comments: Patient is a pleasant 79-year-old female presenting to the emergency Department with complaints of confusion. Symptoms have been occurring for the past several days. Patient did see her doctor today. Patient does complain of mild sore throat. Patient has been intermittently confused. Patient and are unaware of any fevers. Patient states mild cough. No dyspnea. No abdominal pain. No chest pain. No dysuria or hematuria. Patient did have TIA several months ago however symptoms were not quite the same as this. - Related Data Home Medications Medication Instructions Recorded Confirmed Aspirin 81 mg PO DAILY 06/17/18 05/23/19 Multivit-Min/FA/Lycopen/Lutein 1 tab PO DAILY 06/17/18 05/23/19 [Centrum Silver Tablet] Venlafaxine HCl [Effexor] 150 mg PO QAM 06/17/18 05/23/19 Calcium Carbonate/Vitamin D3 1 tab PO BID 07/01/18 05/23/19 [Calcium 500-Vit D3 200 Tablet] Certolizumab Pegol [Cimzia] 1 dose SQ Q30D 07/01/18 05/23/19 Folic Acid 1 mg PO DAILY 07/01/18 05/23/19 Gabapentin [Neurontin] 100 mg PO TID 07/01/18 05/23/19 rOPINIRole HCL [Requip] 0.5 mg PO HS 07/01/18 05/23/19 Cyanocobalamin (Vitamin B-12) 1,000 mcg PO DAILY 09/12/18 05/23/19 [Vitamin B-12] Morley-3 Fatty Acids/Fish Oil [Fish 1 cap PO DAILY 09/12/18 05/23/19 Oil 1,000 mg Softgel] Dicyclomine [Bentyl] 10 mg PO ACHS 10/06/18 05/23/19 Methotrexate Sodium [Methotrexate] 20 mg PO FR 10/06/18 05/23/19 Acetaminophen-Codeine 300-30mg 1 tab PO DAILY PRN 12/19/18 05/23/19 [Tylenol w/codeine #3] Baclofen 10 mg PO TID 12/19/18 05/23/19 Omeprazole 40 mg PO DAILY 12/19/18 05/23/19 Topiramate [Topamax] 50 mg PO BID 03/01/19 05/23/19 Allergies Allergy/AdvReac Type Severity Reaction Status Date / Time etodolac [From Lodine] Allergy Rash/Hives Verified 05/23/19 20:39 nabumetone [From Relafen] Allergy Rash/Hives Verified 05/23/19 20:39 naproxen [From Naprosyn] Allergy Rash/Hives Verified 05/23/19 20:39 NSAIDS (Non-Steroidal Allergy Rash/Hives Verified 05/23/19 20:39 Anti-Inflamma Review of Systems ROS Statement: Those systems with pertinent positive or pertinent negative responses have been documented in the HPI. ROS Other: All systems not noted in ROS Statement are negative. Constitutional: Reports: as per HPI Eyes: Denies: eye pain ENT: Reports: throat pain. Denies: ear pain Respiratory: Reports: cough. Denies: dyspnea Cardiovascular: Denies: chest pain Endocrine: Reports: fatigue Gastrointestinal: Denies: abdominal pain Genitourinary: Denies: dysuria Musculoskeletal: Denies: back pain Skin: Denies: rash Neurological: Denies: weakness Past Medical History Past Medical History: Cancer, CVA/TIA, GERD/Reflux, Osteoarthritis (OA), Pneumonia, Renal Disease, Rheumatoid Arthritis (RA) Additional Past Medical History / Comment(s): Spouse thinks pt may have the very beginnnings of dementia, arthritis in multiple joints, RLS, UTIs, stress headaches, pericardial effusion, pleurisy, Skin cancer on her nose. Cut on L finger. Kidney stones. History of Any Multi-Drug Resistant Organisms: None Reported Past Surgical History: Cholecystectomy, Joint Replacement, Orthopedic Surgery Additional Past Surgical History / Comment(s): Rotator cuff (R); Ric Knee Replacement; Panniculectomy, bilateral legs varicose vein surgery, colonoscopies-normal, bilateral cataract removal, FNA abdominal seroma, cystoscopy/bladder bx/lithotripsy with R ureteral stent., Past Anesthesia/Blood Transfusion Reactions: No Reported Reaction Additional Past Anesthesia/Blood Transfusion Reaction / Comment(s): Pt has received blood after panniculectomy without reaction. Past Psychological History: No Psychological Hx Reported Smoking Status: Never smoker Past Alcohol Use History: None Reported Past Drug Use History: None Reported - Past Family History Mother Family Medical History: Myocardial Infarction ([place]) Additional Family Medical History / Comment(s): Mother at age 69 yrs after having the flu and complicated by a [place]. Father Additional Family Medical History / Comment(s): IBS. Father at age 78yrs. General Exam Limitations: no limitations General appearance: alert, in no apparent distress Head exam: Present: atraumatic Eye exam: Present: normal appearance, PERRL ENT exam: Present: normal oropharynx Neck exam: Present: normal inspection. Absent: tenderness, meningismus Respiratory exam: Present: normal lung sounds bilaterally Cardiovascular Exam: Present: regular rate, normal rhythm GI/Abdominal exam: Present: soft. Absent: tenderness Extremities exam: Present: normal inspection. Absent: pedal edema, calf tenderness Neurological exam: Present: alert, oriented X3, CN II-XII intact. Absent: motor sensory deficit Expanded Neurological exam: Present: protecting the airway Patient oriented to: Present: person, place, time Speech: Present: fluid speech Cranial nerves: EOM's Intact: Normal Motor strength exam: RUE: 5, LUE: 5, RLE: 5, LLE: 5 Eye Response: (4) open spontaneously Motor Response: (6) obeys commands Verbal Response: (5) oriented Psychiatric exam: Present: normal affect, normal mood Skin exam: Present: normal color Course Vital Signs 05/23/19 18:50 Temperature 103.1 F H Pulse Rate 93 Respiratory 18 Rate Blood Pressure 151/70 O2 Sat by Pulse 94 L Oximetry - Reevaluation(s) Reevaluation #1: 05/23/19 20:55 Patient does meet sepsis criteria diagnosed at 2054. Blood culture and lactic acid have been ordered. IV antibiotics will be ordered. EKG Findings - EKG Comments: EKG Findings:: Sinus rhythm at 86. For screening AV block W[place] 254. QRS 142. QT 384. QTC 459. Normal axis. Right bundle branch block. No acute ST change. Medical Decision Making - Medical Decision Making reevaluated and improved. Patient and family updated on results and plan. Case was discussed with practitioner Maame Almaraz, covering with Dr. Castle, who will admit covering for Dr. Garcia. - Lab Data Result diagrams: 05/23/19 19:44 05/23/19 19:44 Lab Results 05/23/19 05/23/19 05/23/19 Range/Units 19:44 19:44 19:44 WBC 11.5 H (3.8-10.6) k/uL RBC 3.94 (3.80-5.40) m/uL Hgb 11.6 (11.4-16.0) gm/dL Hct 38.2 (34.0-46.0) % MCV 97.0 (80.0-100.0) fL MCH 29.6 (25.0-35.0) pg MCHC 30.5 L (31.0-37.0) g/dL RDW 13.4 (11.5-15.5) % Plt Count 252 (150-450) k/uL Neutrophils % 81 % Lymphocytes % 5 % Monocytes % 9 % Eosinophils % 1 % Basophils % 2 % Neutrophils # 9.4 H (1.3-7.7) k/uL Lymphocytes # 0.6 L (1.0-4.8) k/uL Monocytes # 1.0 (0-1.0) k/uL Eosinophils # 0.1 (0-0.7) k/uL Basophils # 0.2 (0-0.2) k/uL PT (9.0-12.0) sec INR (<1.2) APTT (22.0-30.0) sec Sodium 140 (137-145) mmol/L Potassium 3.7 (3.5-5.1) mmol/L Chloride 106 (98-107) mmol/L Carbon Dioxide 23 (22-30) mmol/L Anion Gap 11 mmol/L BUN 24 H (7-17) mg/dL Creatinine 0.97 (0.52-1.04) mg/dL Est GFR (CKD-EPI)AfAm 65 (>60 ml/min/1.73 sqM) Est GFR (CKD-EPI)NonAf 56 (>60 ml/min/1.73 sqM) Glucose 147 H (74-99) mg/dL Plasma Lactic Acid Hebert 1.1 (0.7-2.0) mmol/L Calcium 9.3 (8.4-10.2) mg/dL Total Bilirubin 0.6 (0.2-1.3) mg/dL AST 20 (14-36) U/L ALT 14 (9-52) U/L Alkaline Phosphatase 98 (38-126) U/L Creatine Kinase 26 L (30-135) U/L Troponin I (0.000-0.034) ng/mL Total Protein 7.3 (6.3-8.2) g/dL Albumin 3.7 (3.5-5.0) g/dL Urine Color Urine Appearance (Clear) Urine pH (5.0-8.0) Ur Specific Darby (1.001-1.035) Urine Protein (Negative) Urine Glucose (UA) (Negative) Urine Ketones (Negative) Urine Blood (Negative) Urine Nitrite (Negative) Urine Bilirubin (Negative) Urine Urobilinogen (<2.0) mg/dL Ur Leukocyte Esterase (Negative) Urine RBC (0-5) /hpf Urine WBC (0-5) /hpf Ur Squamous Epith Cells (0-4) /hpf Urine Mucus (None) /hpf 05/23/19 05/23/19 05/23/19 Range/Units 19:44 19:44 19:44 WBC (3.8-10.6) k/uL RBC (3.80-5.40) m/uL Hgb (11.4-16.0) gm/dL Hct (34.0-46.0) % MCV (80.0-100.0) fL MCH (25.0-35.0) pg MCHC (31.0-37.0) g/dL RDW (11.5-15.5) % Plt Count (150-450) k/uL Neutrophils % % Lymphocytes % % Monocytes % % Eosinophils % % Basophils % % Neutrophils # (1.3-7.7) k/uL Lymphocytes # (1.0-4.8) k/uL Monocytes # (0-1.0) k/uL Eosinophils # (0-0.7) k/uL Basophils # (0-0.2) k/uL PT 10.1 (9.0-12.0) sec INR 0.9 (<1.2) APTT 24.3 (22.0-30.0) sec Sodium (137-145) mmol/L Potassium (3.5-5.1) mmol/L Chloride (98-107) mmol/L Carbon Dioxide (22-30) mmol/L Anion Gap mmol/L BUN (7-17) mg/dL Creatinine (0.52-1.04) mg/dL Est GFR (CKD-EPI)AfAm (>60 ml/min/1.73 sqM) Est GFR (CKD-EPI)NonAf (>60 ml/min/1.73 sqM) Glucose (74-99) mg/dL Plasma Lactic Acid Hebert (0.7-2.0) mmol/L Calcium (8.4-10.2) mg/dL Total Bilirubin (0.2-1.3) mg/dL AST (14-36) U/L ALT (9-52) U/L Alkaline Phosphatase (38-126) U/L Creatine Kinase (30-135) U/L Troponin I <0.012 (0.000-0.034) ng/mL Total Protein (6.3-8.2) g/dL Albumin (3.5-5.0) g/dL Urine Color Yellow Urine Appearance Clear (Clear) Urine pH 6.0 (5.0-8.0) Ur Specific Darby 1.020 (1.001-1.035) Urine Protein 1+ H (Negative) Urine Glucose (UA) Negative (Negative) Urine Ketones Negative (Negative) Urine Blood Small H (Negative) Urine Nitrite Negative (Negative) Urine Bilirubin Negative (Negative) Urine Urobilinogen 2.0 (<2.0) mg/dL Ur Leukocyte Esterase Small H (Negative) Urine RBC 20 H (0-5) /hpf Urine WBC 10 H (0-5) /hpf Ur Squamous Epith Cells <1 (0-4) /hpf Urine Mucus Rare H (None) /hpf - Radiology Data Interpreted by me: Chest x-ray does have slight increased markings right lower lobe Critical Care Time Critical Care Time: Yes Total Critical Care Time: 31 Disposition Clinical Impression: UTI (urinary tract infection), Sepsis Disposition: ADMITTED IP TO THIS HOSP Is patient prescribed a controlled substance at d/c from ED?: No Referrals: Jh Garcia DO [Primary Care Provider] - 1-2 days Decision Time: 20:55
[2019-05-23] MEDS ORDERED: SODIUM CHLORIDE 0.9% 500 ML 500 ML IV SCH (19:30)
[2019-05-23 20:06] LABS: Basophils # (A) 0.2 k/uL (0-0.2); Basophils % (A) 2 %; Eosinophils # (A) 0.1 k/uL (0-0.7); Eosinophils % (A) 1 %; HCT 38.2 % (34.0-46.0); HGB 11.6 gm/dL (11.4-16.0); Lymphocytes # (A) 0.6 k/uL (1.0-4.8); Lymphocytes % (A) 5 %; MCH 29.6 pg (25.0-35.0); MCHC 30.5 g/dL (31.0-37.0); Mean Platelet Volume 7.1; Monocytes % (A) 9 %; Neutrophils # (A) 9.4 k/uL (1.3-7.7); Neutrophils % (A) 81 %; Platelet Count 252 k/uL (150-450); RBC 3.94 m/uL (3.80-5.40); RDW 13.4 % (11.5-15.5); WBC 11.5 k/uL (3.8-10.6)
[2019-05-23 20:09] LABS: Appearance,Urine Clear (Clear); Bilirubin,Urine Negative (Negative); Blood,Urine Small (Negative); Color,Urine Yellow; Glucose,Urine (UA) Negative (Negative); Ketones,Urine Negative (Negative); Leukocyte Esterase,Urine Small (Negative); Mucus,Urine Rare /hpf; Nitrite,Urine Negative (Negative); Protein,Urine 1+ (Negative); RBC,Urine 20 /hpf (0-5); Squamous Epithelial Cell,Urine <1 /hpf (0-4)
[2019-05-23 20:16] LABS: INR 0.9 (<1.2); Partial Thromboplastin Time 24.3 sec (22.0-30.0); Prothrombin Time 10.1 sec (9.0-12.0)
[2019-05-23 20:24] LABS: Albumin 3.7 g/dL (3.5-5.0); Calcium 9.3 mg/dL (8.4-10.2); Potassium 3.7 mmol/L (3.5-5.1); Total Bilirubin 0.6 mg/dL (0.2-1.3); Total Protein 7.3 g/dL (6.3-8.2)
[2019-05-23] MEDS: SODIUM CHLORIDE 0.9% 1,000 ML IV SCH (20:35)
[2019-05-23] MEDS ORDERED: NALOXONE 0.4 MG/ML 1 ML VIAL IV PRN (20:56)
[2019-05-23 22:36] VITALS: BMI 24.1
[2019-05-23] MEDS ORDERED: ALPRAZolam 0.25 MG TAB PO PRN (23:51)
--- NOTE | 2019-05-23 23:57 | XR ---
EXAMINATION TYPE: XR chest 2V DATE OF EXAM: 05/23/2019 COMPARISON: Chest x-ray March 01, 2019. HISTORY: Confusion and fever. TECHNIQUE: Frontal and lateral views of the chest are obtained. FINDINGS: There is chronic parenchymal change without suspicious focal air space opacity, pleural ef fusion, or pneumothorax seen. The cardiac silhouette size is enlarged. The osseous structures are intact. IMPRESSION: Chronic changes and cardiomegaly without acute pulmonary process.
[2019-05-24] MEDS: SODIUM CHLORIDE 0.9% 1,000 ML IV SCH ×3 (05:07→20:40)
[2019-05-24 07:41] LABS: Potassium 3.4 mmol/L (3.5-5.1)
--- NOTE | 2019-05-24 07:46 | HP ---
HISTORY AND PHYSICAL DATE OF SERVICE: 05/23/2019 I am covering for Dr. Garcia. CHIEF COMPLAINT: Change in mental status and confusion. HISTORY OF PRESENT ILLNESS: This 79-year-old woman with a past medical history of multiple medical problems including history of CVA, TIA, history of GERD, history of DJD, history of pneumonia, renal disease, rheumatoid arthritis, history of cholecystectomy, history of UTI, being followed by Dr. Garcia in the outpatient setting had features of UTI earlier. The patient was receiving oral antibiotics in the outpatient setting. Today the patient had fever and the patient is confused which is intermittent and the took the patient to [facility] and patient admitted for evaluation and treatment. The white count is elevated at 11.5. UA shows abnormality and UTI with sepsis suspected. There is no history of any headache, loss of consciousness or seizures at this time. PAST MEDICAL HISTORY: History of GERD, DJD, history of pneumonia, history of rheumatoid arthritis, cholecystectomy. HOME MEDICATIONS: 1. Requip 0.5 mg q.h.s. 2. Tylenol #3 1 tab daily p.r.n. 3. Fish oil 1 p.o. daily. 4. Multivitamins 1 daily. 5. Neurontin 100 mg p.o. t.i.d. 6. Vitamin B 1000 mcg p.o. daily. 8. Calcium with vitamin D 1 p.o. b.i.d. 9. Omeprazole 40 mg p.o. daily. 10.Methotrexate 20 mg Sunday. 11.Folic acid 1 mg p.o. daily. 12.Benadryl 10 mg q. a.c. h.s. 13.Baclofen 10 mg p.o. t.i.d. 14.Aspirin 81 mg p.o. daily. 15.Effexor 150 mg p.o. q.i.d. 16.Topamax 50 mg p.o. b.i.d. ALLERGIES: LODINE, RELAFEN, NAPROSYN, NSAIDS FAMILY HISTORY: History of myocardial infarction in the family. SOCIAL HISTORY: No history of smoking, no history of alcohol intake. REVIEW OF SYSTEMS: ENT: No diminished vision, no diminished hearing.. CARDIOVASCULAR: No angina or palpitations. RESPIRATORY: No cough or hemoptysis. GI: No nausea. : As mentioned earlier. NERVOUS SYSTEM: As mentioned earlier. ALLERGIES/IMMUNOLOGY: No asthma or hayfever. MUSCULOSKELETAL: As mentioned earlier. HEMATOLOGY: No anemia. ENDOCRINE: No history of diabetes or hypothyroidism. CONSTITUTIONAL: As mentioned earlier. DERMATOLOGY: Negative. RHEUMATOLOGY: As mentioned earlier. PSYCHIATRY: As mentioned earlier. PHYSICAL EXAMINATION: Alert and oriented. Pulse is 84, blood pressure 130/52, respiration 18, T-max 101.8, pulse ox 94% on room air. HEENT: Conjunctivae normal. Oral mucosa moist. NECK: No jugular venous distention. No lymph node enlargement. CARDIOVASCULAR: S1, S2. RESPIRATORY: Diminished breath sounds at the bases. No rhonchi, no crackles. ABDOMEN: Soft, nontender. No mass palpable. LEGS: No edema, no swelling. NERVOUS SYSTEM: Higher functions mentioned earlier. Moves all four limbs. No focal deficits. LYMPHATICS: No lymph node in neck or axilla. SKIN: No rash. JOINTS: Chronic deforming arthropathy. LABS: WBC 11.5. Otherwise, hemoglobin 11.6. BUN is 24, glucose 147. Otherwise, UA noted. ASSESSMENT: 1. Acute urinary tract infection with sepsis present on admission. 2. Change in mental status, metabolic encephalopathy secondary to urinary tract infection. 3. Possible mild dehydration present on admission. 4. Increased WBC present on admission. 5. History of gastroesophageal reflux disease. 6. History of transient ischemic attack. 7. History of degenerative joint disease. 8. History of pneumonia. 9. History of rheumatoid arthritis. 10.History of early dementia possibly. 11.History of skin cancer. RECOMMENDATIONS AND DISCUSSION: This 79-year-old male present with multiple complex medical issues, we will monitor the patient closely, continue the current management, continue symptomatic treatment. Will initiate broad-spectrum IV antibiotics. I would also recommend cultures. Resume the home medications. Otherwise, PT, OT evaluation. Cut down the IV to 100 mL/hour. Repeat labs in the morning. DVT prophylaxis. Proton pump inhibitors. Guarded prognosis because of multiple complex medical issues. Further recommendations to follow. MMODL / IJN: [id number] / MTDD
[2019-05-24 08:02] LABS: HCT 35.8 % (34.0-46.0); Hypochromasia Slight; MCH 30.4 pg (25.0-35.0); MCHC 30.9 g/dL (31.0-37.0); MCV 98.5 fL (80.0-100.0); Platelet Count 227 k/uL (150-450); RBC 3.63 m/uL (3.80-5.40); RDW 13.4 % (11.5-15.5); WBC 7.2 k/uL (3.8-10.6)
[2019-05-24] MEDS: CYANOCOBALAMIN 500 MCG TAB PO SCH (08:59)
[2019-05-24] MEDS: CALCIUM CARB-VIT D 500MG-200UN 1 EACH TAB PO SCH ×2 (08:59→20:41)
[2019-05-24] MEDS: HEPARIN SODIUM,PORCINE 5,000 UNIT/ML 1 ML VIAL SQ SCH ×2 (09:00→20:41)
[2019-05-24] MEDS: FOLIC ACID 1 MG TAB PO SCH (09:00)
[2019-05-24] MEDS: ASPIRIN 81 MG PO SCH (09:00)
[2019-05-24] MEDS ORDERED: MULTIVIT MIN PO SCH (09:00)
[2019-05-24] MEDS: TOPIRAMATE 25 MG TAB PO SCH ×2 (09:00→20:41)
[2019-05-24] MEDS: DICYCLOMINE 10 MG CAP PO SCH ×4 (09:00→20:42)
[2019-05-24] MEDS: PANTOPRAZOLE 40 MG TABLET PO SCH (09:00)
[2019-05-24] MEDS: BACLOFEN 10 MG TAB PO SCH ×3 (09:00→20:41)
[2019-05-24] MEDS ORDERED: LYCOPEN PO SCH (09:00)
[2019-05-24] MEDS ORDERED: NON FORMULARY DRUG (Omega-3 Fatty Acids/Fish Oil [Fish Oil 1,000 Mg Softgel] 1 CAP) PO SCH (09:00)
[2019-05-24] MEDS ORDERED: [UNRECOGNIZED DRUG - OTHER] PO SCH (09:00)
[2019-05-24] MEDS ORDERED: LUTEIN PO SCH (09:00)
[2019-05-24] MEDS: GABAPENTIN 100 MG CAP PO SCH ×3 (09:06→20:41)
[2019-05-24 10:23] LABS: Lymphocytes # (M) 1.44 k/uL (1.0-4.8); Monocytes # (M) 0.72 k/uL (0-1.0); Neutrophils % (M) 70 %; Nucleated Red Blood Cells 0 /100 WBC (0-0); Total Cells Counted 100
[2019-05-24] MEDS: ACETAMINOPHEN TAB 325 MG TAB PO PRN (13:21)
[2019-05-24] MEDS ORDERED: Potassium Replacement Protocol 1 EACH MISC MISCELLANE PRN (14:03)
[2019-05-24] MEDS ORDERED: ACETAMINOPHEN IV (For NPO) 1,000 MG in EMPTY BAG 1 BAG IVPB STA (14:35)
--- NOTE | 2019-05-24 15:40 | PN ---
PROGRESS NOTE DATE OF SERVICE: 05/24/2019 I am covering for Dr. Garcia. This 79-year-old woman was admitted with change in mental status, possible UTI and sepsis being closely monitored. At this time, the patient is slightly confused. Patient was also tremulous at this time. Cultures are negative at this time. Patient will be closely monitored. The patient is running some fever as well. PAST MEDICAL HISTORY: Reviewed. REVIEW OF SYMPTOMS: Review of systems could not be taken, the patient is confused. CURRENT MEDICATIONS: Current medications are reviewed and include: 1. Tylenol 650 q.6 p.r.n. 2. Tylenol No.3. 3. Xanax 0.25 t.i.d. 4. Aspirin 81 mg p.o. daily. 5. Lioresal 10 mg t.i.d. 6. Os-Tunde with vitamin D one p.o. b.i.d. 7. Ceftriaxone 1 gram daily. 8. Vitamin B12, 1000 mcg b.i.d. 9. Bentyl 10 mg a.c., at bedtime. 10.Folic acid 1 mg daily. 11.Neurontin 100 mg p.o. t.i.d. 12.Heparin subcu b.i.d. 13.Methotrexate 20 mg p.o. Sunday. 14.Narcan. 15.Cimzia 1 dose q.30 days. 16.Protonix 40 mg daily. 17.Requip 0.5 mg q.h.s. 18.Topamax 50 mg p.o. b.i.d. 19.Effexor XR 150 mg p.o. a.m. PHYSICAL EXAM: Patient is conscious, confused. Pulse is 83, blood pressure 131/73, respiration 20, , temperature is 97.1, pulse ox 94% on room air. T-max 103.1. HEENT: Conjunctivae normal. Oral mucosa moist. NECK: No jugular venous distention. CARDIOVASCULAR: S1, S2 muffled. RESPIRATORY: Breath sounds diminished in the bases. No rhonchi, no crackles. ABDOMEN: Soft, nontender. LEGS: No edema, no swelling. NERVOUS SYSTEM: Tremors, diffusely weak also present. The patient is confused. SKIN: No ulcer, rash or bleeding. JOINTS: No active deforming arthropathy. LABS: WBC 7.2, hemoglobin 11, sodium 143, potassium 3.4. ASSESSMENT: 1. Possible acute urinary tract infection with sepsis present on admission. 2. Change in mental status, metabolic encephalopathy secondary to urinary tract infection. 3. Possible mild dehydration, present on admission. 4. Increased WBC, present on admission. 5. History of gastroesophageal reflux disease. 6. History of transient ischemic attack. 7. History of degenerative joint disease. 8. History of pneumonia. 9. History of rheumatoid arthritis. 10.History of the early dementia possibly. 11.History of skin cancer. 12.Hypokalemia. RECOMMENDATIONS AND DISCUSSION: Recommend to continue current medications, continue symptomatic treatment Otherwise, I would recommend repeat blood cultures. The patient is currently on Rocephin. Infectious Disease evaluation. The prognosis guarded because of multiple complex medical issues. Further recommendations to follow. Discussed with at the bedside and further recommendations to follow. I also recommend PT, OT evaluation as well. Once the patient is improved and health care social worker to follow regarding the home situation. Once again the overall prognosis is extremely guarded because of multiple complex medical issues and further recommendation to follow. MMKAJALL / IJN: [id number] / RENATA
[2019-05-24] MEDS: VENLAFAXINE HCL ER 150 MG CAP PO SCH (18:19)
[2019-05-24] MEDS: Acetaminophen-Codeine 300-30mg TAB PO PRN (22:55)
[2019-05-25] MEDS: ACETAMINOPHEN TAB 325 MG TAB PO PRN ×3 (04:54→23:29)
[2019-05-25 07:07] LABS: Basophils % (A) 0 %; Eosinophils # (A) 0.1 k/uL (0-0.7); Eosinophils % (A) 1 %; HCT 33.4 % (34.0-46.0); HGB 10.8 gm/dL (11.4-16.0); Lymphocytes # (A) 1.2 k/uL (1.0-4.8); Lymphocytes % (A) 12 %; MCH 31.8 pg (25.0-35.0); MCHC 32.4 g/dL (31.0-37.0); Mean Platelet Volume 7.4; Monocytes # (A) 0.8 k/uL (0-1.0); Monocytes % (A) 8 %; Neutrophils # (A) 7.6 k/uL (1.3-7.7); Neutrophils % (A) 76 %; Platelet Count 248 k/uL (150-450); RDW 15.3 % (11.5-15.5)
[2019-05-25 07:33] LABS: African American GFR (CKD) >90 (>60 ml/min/1.73 sqM); Anion Gap 8 mmol/L; Blood Urea Nitrogen 14 mg/dL (7-17); Calcium 8.8 mg/dL (8.4-10.2); Carbon Dioxide 20 mmol/L (22-30); Chloride 113 mmol/L (98-107); Glucose 111 mg/dL (74-99); Potassium 3.1 mmol/L (3.5-5.1); Sodium 141 mmol/L (137-145)
[2019-05-25] MEDS: GABAPENTIN 100 MG CAP PO SCH ×3 (08:10→20:32)
[2019-05-25] MEDS: DICYCLOMINE 10 MG CAP PO SCH ×4 (08:11→20:32)
[2019-05-25] MEDS: ASPIRIN 81 MG PO SCH (08:11)
[2019-05-25] MEDS: BACLOFEN 10 MG TAB PO SCH ×3 (08:11→20:32)
[2019-05-25] MEDS: PANTOPRAZOLE 40 MG TABLET PO SCH (08:11)
[2019-05-25] MEDS: CYANOCOBALAMIN 500 MCG TAB PO SCH (08:11)
[2019-05-25] MEDS: TOPIRAMATE 25 MG TAB PO SCH ×2 (08:11→20:32)
[2019-05-25] MEDS: HEPARIN SODIUM,PORCINE 5,000 UNIT/ML 1 ML VIAL SQ SCH ×2 (08:11→20:31)
[2019-05-25] MEDS: CALCIUM CARB-VIT D 500MG-200UN 1 EACH TAB PO SCH ×2 (08:11→20:31)
[2019-05-25] MEDS: FOLIC ACID 1 MG TAB PO SCH (08:11)
[2019-05-25] MEDS: SODIUM CHLORIDE 0.9% 1,000 ML IV SCH ×2 (08:12→20:31)
[2019-05-25] MEDS: VENLAFAXINE HCL ER 150 MG CAP PO SCH (08:12)
--- NOTE | 2019-05-25 09:06 | US ---
EXAMINATION TYPE: US abdomen complete DATE OF EXAM: 05/25/2019 COMPARISON: Previous study dated 09/26/2016. CLINICAL HISTORY: fever. Patient stated had gallbladder removed and hernia surgery/ no umbilicus is n oted. PAtient denies abdominal pain. EXAM MEASUREMENTS: Liver Length: 15.6 cm Gallbladder Wall: surgically removed CBD: 1.4 cm Spleen: 7.3 x 7.8 x 3.6 cm Right Kidney: 10.7 x 4.7 x 4.9 cm Left Kidney: 10.4 x 5.7 x 4.9 cm Pancreas: dilated CBD in pancreas at 1.4cm A/P; pancreatic duct is prominently noted at 4.5mm at mid pancreas and anterior to CBD; tail is obscured by overlying bowel gas. Liver: left lobe liver cyst = 1.0 x 1.1 x 1.0cm Gallbladder: surgically absent Evidence for sonographic Hernandez's sign: no CBD: abnormally dilated post cholecystectomy as is greater than 1.0cm. Spleen: wnl, prominent blood vessel is noted near hilum Right Kidney: inferior pole hyperechoic shadowing focus is noted = 0.2 x 0.3 x 0.2cm . Small fluid a en is noted adjacent to lower pole. Left Kidney: couple of areas of renal stones are noted with larger shadowing stone in inferior pole = 0.6 x 0.8 x 0.5cm. Upper IVC: wnl Abd Aorta: not seen mid and distally due to overlying bowel gas Pancreatic duct is dilated measuring 4.5 mm. Limited views of the pancreas is unremarkable. There is a simple appearing, 1.1 cm cyst in the left lobe of the liver. The gallbladder is been removed. Distal common hepatic duct is dilated. This is not unusual in post c holecystectomy patients. Spleen is normal in size. There is a nonobstructing 3 mm right lower pole renal calculus. There are multiple stones in the left kidney. The largest measures 8 mm. There is no associated hydronephrosis. Visualized portions of the aorta and IVC are normal. IMPRESSION: 1. BILATERAL NONOBSTRUCTING NEPHROLITHIASIS. 2. DILATATION OF THE PANCREATIC DUCT. ERCP VERSUS MRCP WOULD BE SUGGESTED. 3. SIMPLE APPEARING LEFT HEPATIC CYST.
--- NOTE | 2019-05-25 09:11 | P.CONS ---
History of Present Illness - Reason for Consult Consult date: 05/24/19 Fever Requesting physician: Suze Reyna - Chief Complaint Confusion fever x one day - History of Present Illness Patient is a 79-year-old female who was brought into the ER at [facility] for evaluation of confusion and fever for 1 day, the patient den ies having any headache she did have some sore throat but no runny nose or other URI symptoms, patient denies having any chest pain or shortness of breath or cough no abdominal pain she's been complaining of some urinary frequency and burning but no slough pubic or flank pain patient on arrival to the hospital was noticed to be febrile with temperature 103F, patient did have mildly elevated white count she did have mildly positive UA and chest x-ray was negative patient was started on Rocephin and admitted to the hospital with persistent fever infectious disease was consulted for further recommendation regarding antibiotic therapy Review of Systems Positive points has been mentioned in HPI rest of the systems are negative Past Medical History Past Medical History: Cancer, CVA/TIA, GERD/Reflux, Osteoarthritis (OA), Pneum onia, Renal Disease, Rheumatoid Arthritis (RA) Additional Past Medical History / Comment(s): Spouse thinks pt may have the very beginnnings of dementia, arthritis in multiple joints, RLS, UTIs, stress headaches, pericardial effusion, pleurisy, Skin cancer on her nose. Cut on L finger. Kidney stones. History of Any Multi-Drug Resistant Organisms: None Reported Past Surgical History: Cholecystectomy, Joint Replacement, Orthopedic Surgery Additional Past Surgical History / Comment(s): Rotator cuff (R); Ric Knee Replacement; Panniculectomy, bilateral legs varicose vein surgery, colonoscopies-normal, bilateral cataract removal, FNA abdominal seroma, cystoscopy/bladder bx/lithotripsy with R ureteral stent., Past Anesthesia/Blood Transfusion Reactions: No Reported Reaction Additional Past Anesthesia/Blood Transfusion Reaction / Comm: Pt has received blood after panniculectomy without reaction. Past Psychological History: No Psychological Hx Reported Additional Psychological History / Comment(s): Pt resides with her spouse. She is independent. She uses no assistive device. She drives. Smoking Status: Never smoker Past Alcohol Use History: None Reported Past Drug Use History: None Reported - Past Family History Mother Family Medical History: Myocardial Infarction (AK) Additional Family Medical History / Comment(s): Mother at age 69 yrs after having the flu and complicated by a AK. Father Additional Family Medical History / Comment(s): IBS. Father at age 78yrs. Medications and Allergies Home Medications Medication Instructions Recorded Confirmed Type Aspirin 81 mg PO DAILY 06/17/18 05/23/19 History Multivit-Min/FA/Lycopen/Lutein 1 tab PO DAILY 06/17/18 05/23/19 History [Centrum Silver Tablet] Venlafaxine HCl [Effexor] 150 mg PO QAM 06/17/18 05/23/19 History Calcium Carbonate/Vitamin D3 1 tab PO BID 07/01/18 05/23/19 History [Calcium 500-Vit D3 200 Tablet] Certolizumab Pegol [Cimzia] 1 dose SQ Q30D 07/01/18 05/23/19 History Folic Acid 1 mg PO DAILY 07/01/18 05/23/19 History Gabapentin [Neurontin] 100 mg PO TID 07/01/18 05/23/19 History rOPINIRole HCL [Requip] 0.5 mg PO HS 07/01/18 05/23/19 History Cyanocobalamin (Vitamin B-12) 1,000 mcg PO DAILY 09/12/18 05/23/19 History [Vitamin B-12] [place]-3 Fatty Acids/Fish Oil [Fish 1 cap PO DAILY 09/12/18 05/23/19 History Oil 1,000 mg Softgel] Dicyclomine [Bentyl] 10 mg PO ACHS 10/06/18 05/23/19 History Methotrexate Sodium [Methotrexate] 20 mg PO FR 10/06/18 05/23/19 History Acetaminophen-Codeine 300-30mg 1 tab PO DAILY PRN 12/19/18 05/23/19 History [Tylenol w/codeine #3] Baclofen 10 mg PO TID 12/19/18 05/23/19 History Omeprazole 40 mg PO DAILY 12/19/18 05/23/19 History Topiramate [Topamax] 50 mg PO BID 03/01/19 05/23/19 History Allergies Allergy/AdvReac Type Severity Reaction Status Date / Time etodolac [From Lodine] Allergy Rash/Hives Verified 05/23/19 20:39 nabumetone [From Relafen] Allergy Rash/Hives Verified 05/23/19 20:39 naproxen [From Naprosyn] Allergy Rash/Hives Verified 05/23/19 20:39 NSAIDS (Non-Steroidal Allergy Rash/Hives Verified 05/23/19 20:39 Anti-Inflamma Physical Exam Vitals: Vital Signs Temp Pulse Resp BP Pulse Ox 05/25/19 04:34 100.3 F H 93 18 182/69 96 05/24/19 19:57 98.2 F 82 18 120/68 96 05/24/19 14:20 103 F H 05/24/19 13:10 101.3 F H 93 14 180/67 100 Intake and Output 05/24/19 05/25/19 05/25/19 22:59 06:59 14:59 Other: Voiding Method Toilet Toilet # Voids 1 2 GENERAL DESCRIPTION: An elderly female lying in bed, no distress. No tachypnea or accessory muscle of respiration use. HEENT: Shows Pallor , no scleral icterus. Oral mucous membrane is dry. No pharyngeal erythema or thrush NECK: Trachea central, no thyromegaly. LUNGS: Unlabored breathing. Clear to auscultation anteriorly. No wheeze or crackle. HEART: S1, S2, regular rate and rhythm. No loud murmur ABDOMEN: Soft, no tenderness , guarding or rigidity, no organomegaly EXTREMITIES: No edema of feet. SKIN: No rash, no masses palpable. NEUROLOGICAL: The patient is awake, alert, oriented x3, mood and affect normal. Results CBC & Chem 7: 05/25/19 06:48 05/25/19 06:48 Labs: Abnormal Lab Results - Last 24 Hours (Table) 05/25/19 05/25/19 Range/Units 06:48 06:48 RBC 3.40 L (3.80-5.40) m/uL Hgb 10.8 L (11.4-16.0) gm/dL Hct 33.4 L (34.0-46.0) % Potassium 3.1 L (3.5-5.1) mmol/L Chloride 113 H (98-107) mmol/L Carbon Dioxide 20 L (22-30) mmol/L Glucose 111 H (74-99) mg/dL Microbiology - Last 24 Hours (Table) 05/23/19 21:02 Urine Culture - Final Urine,Voided 05/23/19 19:44 Blood Culture - Preliminary Blood No Growth after 24 hours Assessment and Plan Assessment: 1-patient presented to hospital with sepsis in this patient who did have a fever or elevated white count patient did have some urinary symptoms with a positive U A suspicious is positive for urinary source for this episode of sepsis and the patient currently do not have any other clinical focus of infection no respiratory symptoms chest x-ray was clear abdominal soft on clinical examination and no evidence of any cellulitis she did have mild sore throat and influenza will need to be ruled out as well (1) Sepsis Current Visit: Yes Status: Acute Code(s): A41.9 - SEPSIS, UNSPECIFIED ORGANISM SNOMED Code(s): 21412008 (2) UTI (urinary tract infection) Current Visit: Yes Status: Acute Code(s): N39.0 - URINARY TRACT INFECTION, SITE NOT SPECIFIED SNOMED Code(s): 63471462 Plan: 1-we will check an influenza PCR 2-check ultrasound of the abdomen 3-Rocephin 2 g IV piggyback daily 4-gentle IV fluid we will follow on clinical condition and culture to further adjust medication if needed Thank you for this consultation will follow this patient along with you
[2019-05-25] MEDS ORDERED: Potassium Replacement Protocol 1 EACH MISC MISCELLANE PRN (09:50)
[2019-05-25] MEDS: POTASSIUM CHLORIDE ER 20 MEQ TAB.ER PO SCH ×2 (11:17→12:45)
--- NOTE | 2019-05-25 20:18 | PN ---
PROGRESS NOTE DATE OF SERVICE: 05/25/2019 I am covering for Dr. Garcia. This 79-year-old woman who was admitted with possible acute urinary tract infection with sepsis is being closely monitored. The patient had rigors and chills and other difficulties yesterday, but however, Infectious Disease saw the patient. Antibiotics dose increased. Cultures are negative so far. No chest pain. No palpitations. No fever. EXAM: Alert and oriented x3. Pulse is 87. Blood pressure 119/64, respirations 16, temperature 98.5, T-max 100.3, pulse ox 97% on room air. HEENT: Conjunctivae normal. Oral mucosa moist. NECK: No jugular venous distention. No lymph node enlargement. CARDIOVASCULAR: S1, S2. RESPIRATORY: Diminished breath sounds at the bases. No rhonchi, no crackles. ABDOMEN: Soft, nontender. LEGS: No swelling. NERVOUS SYSTEM: No focal deficits. LABS: WBC 10, hemoglobin 10.8, sodium 128, potassium 3.1. ASSESSMENT: 1. Tract infection with sepsis present on admission. 2. Change in mental status, metabolic encephalopathy secondary to urinary tract infection. 3. Possible mild dehydration present on admission, improving. 4. Increased WBC, present on admission. 5. Gastroesophageal reflux disease. 6. History of transient ischemic attack. 7. Degenerative joint disease. 8. History of pneumonia. 9. History of rheumatoid arthritis. 10.History of early dementia, possibly from the chart. 11.History of skin cancer. 12.Hypokalemia. RECOMMENDATIONS AND DISCUSSION: Recommend to continue current medications, continue to monitor, continue symptomatic treatment. Otherwise, at this time continue the antibiotics. Closely follow with Infectious Disease. Dr. Garcia will follow tomorrow. Ultrasound showed of the kidneys showed bilateral nonobstructing nephrolithiasis and dilatation of the pancreatic duct and simple appearing left hepatic. We will continue to monitor. Further recommendations to follow. MMODL / IJN: [id number] / MTDD
[2019-05-25] MEDS: Acetaminophen-Codeine 300-30mg TAB PO PRN (21:39)
--- NOTE | 2019-05-25 23:55 | PN ---
PROGRESS NOTE DATE OF SERVICE: 05/25/2019. REASON FOR FOLLOWUP: Fever and a question of urinary tract infection. INTERVAL HISTORY: The patient overall has improved. The patient did have a low grade fever of 100.3 today. The patient is feeling better, breathing comfortably. He denies having any chest pain, shortness of breath or cough. No nausea or vomiting. No abdominal pain. No diarrhea. PHYSICAL EXAMINATION: Blood pressure is 119/64 with a pulse of 87, temperature of 98.5, T-max 100.3. She is 97% on room air. General description is an elderly female up in the bed in no distress. Respiratory system: Unlabored breathing, clear to auscultation anteriorly. Heart S1, S2. Regular rate and rhythm. ABDOMEN: Soft, no tenderness. LABS: Hemoglobin is 10.1, white count 88864. BUN of 14, creatinine 0.69. Cultures so far negative. DIAGNOSTIC IMPRESSION AND PLAN: Patient with fever with the urine symptoms positive with concern for possible urinary source as currently no other evidence of any infection . Patient is currently covered with Rocephin and has shown overall improvement with Rocephin to continue to finish therapy with short course of oral antibiotics on discharge. Continue supportive care. MMODL / IJN: [id number] /
[2019-05-26] MEDS: SODIUM CHLORIDE 0.9% 1,000 ML IV SCH ×2 (03:29→15:33)
[2019-05-26 08:25] LABS: Basophils % (A) 0 %; Eosinophils # (A) 0.1 k/uL (0-0.7); Eosinophils % (A) 2 %; HGB 10.1 gm/dL (11.4-16.0); Lymphocytes # (A) 1.3 k/uL (1.0-4.8); Lymphocytes % (A) 20 %; MCH 31.3 pg (25.0-35.0); MCHC 31.7 g/dL (31.0-37.0); MCV 98.9 fL (80.0-100.0); Mean Platelet Volume 7.3; Monocytes # (A) 0.6 k/uL (0-1.0); Monocytes % (A) 9 %; Neutrophils # (A) 4.3 k/uL (1.3-7.7); Neutrophils % (A) 65 %; Platelet Count 240 k/uL (150-450); RBC 3.24 m/uL (3.80-5.40); RDW 14.8 % (11.5-15.5); WBC 6.6 k/uL (3.8-10.6)
[2019-05-26] MEDS: DICYCLOMINE 10 MG CAP PO SCH ×4 (08:33→20:58)
[2019-05-26] MEDS: TOPIRAMATE 25 MG TAB PO SCH ×2 (08:33→20:59)
[2019-05-26] MEDS: GABAPENTIN 100 MG CAP PO SCH ×3 (08:33→21:02)
[2019-05-26] MEDS: CALCIUM CARB-VIT D 500MG-200UN 1 EACH TAB PO SCH ×2 (08:34→20:59)
[2019-05-26] MEDS: VENLAFAXINE HCL ER 150 MG CAP PO SCH (08:34)
[2019-05-26] MEDS: HEPARIN SODIUM,PORCINE 5,000 UNIT/ML 1 ML VIAL SQ SCH ×2 (08:34→20:59)
[2019-05-26] MEDS: ASPIRIN 81 MG PO SCH (08:34)
[2019-05-26] MEDS: FOLIC ACID 1 MG TAB PO SCH (08:34)
[2019-05-26] MEDS: CYANOCOBALAMIN 500 MCG TAB PO SCH (08:34)
[2019-05-26] MEDS: BACLOFEN 10 MG TAB PO SCH ×3 (08:34→20:58)
[2019-05-26] MEDS: PANTOPRAZOLE 40 MG TABLET PO SCH (08:34)
[2019-05-26 08:47] LABS: African American GFR (CKD) >90 (>60 ml/min/1.73 sqM); Anion Gap 6 mmol/L; Blood Urea Nitrogen 15 mg/dL (7-17); Calcium 8.9 mg/dL (8.4-10.2); Carbon Dioxide 23 mmol/L (22-30); Chloride 113 mmol/L (98-107); Glucose 101 mg/dL (74-99); Potassium 3.5 mmol/L (3.5-5.1); Sodium 142 mmol/L (137-145)
[2019-05-26] MEDS: IOPAMIDOL-300 CONTRAST 30 ML VIAL (ORAL USE) PO PRN ×2 (11:09→12:03)
--- NOTE | 2019-05-26 13:54 | CT ---
EXAMINATION TYPE: CT abdomen pelvis w con DATE OF EXAM: 05/26/2019 HISTORY: generalized pain with nausea. CT DLP: 1101mGycm Automated Exposure Control for Dose Reduction was Utilized. CONTRAST: CT scan of the abdomen and pelvis is performed with IV Contrast, patient injected with 100 mL of Isov ue 300. COMPARISON: CT abdomen and pelvis September 12, 2018 FINDINGS: LUNG BASES: Coronary artery calcification is seen which is noted marked underlying coronary artery di sease.. LIVER/GB: Cholecystectomy clips are redemonstrated. Stable mild to moderate extrahepatic biliary dila tation with mild central intrahepatic biliary dilatation. PANCREAS: Better visualization of focal pancreatic ductal dilatation mid body coronal image 27 up to 14 mm with diminished size in the pancreatic head. SPLEEN: No significant abnormality is seen. ADRENALS: No significant abnormality is seen. KIDNEYS: There are roughly 5 scattered left-sided renal calculi measuring up to 7 mm long axis lower pole level coronal image 43. Single 2 mm calculus anteriorly midpole of the right kidney image 34 is noted. Symmetric cortical medullary uptake and excretion is seen without hydronephrosis seen bilatera lly. Stable prominent right-sided pelvic phlebolith axial image 68 and scattered inferior pelvic phle boliths. No intraluminal calculus in bladder. BOWEL: Oral contrast does not reach colonic level. Low-lying cecum in the right pelvis. No suspicious small or large bowel dilatation. UTERUS/ADNEXA: Left-sided calcified fibroid axial image 71 redemonstrated. LYMPH NODES: No greater than 1cm abdominal or pelvic lymph nodes are appreciated. OSSEOUS STRUCTURES: Multilevel spondylolisthesis and degenerative change with spurring and disc space narrowing most prominent at L2-L3 and L3-L4 levels. Posterior disc herniation effaces the anterior t hecal sac L3-L4 level on sagittal image 39. OTHER: No significant additional abnormality is seen. IMPRESSION: 1. Better visualization of focal pancreatic ductal dilatation mid body and mild to moderate biliary d ilatation. This is not significantly changed back to the 2017 in 2016 studies. Differential includes main branch right IPMN. Interval stability suggests benign etiology. 2. No bowel obstruction seen. No acute findings evident to account for patient's symptoms. Bilateral nephrolithiasis redemonstrated.
[2019-05-26] MEDS: Acetaminophen-Codeine 300-30mg TAB PO PRN (14:13)
--- NOTE | 2019-05-26 18:47 | PN ---
PROGRESS NOTE DATE OF SERVICE: 05/26/2019. REASON FOR FOLLOWUP: Fever and possible UTI. INTERVAL HISTORY: The patient did spike another fever last night of 101 degrees Fahrenheit. The patient denies any rigors or chills with it. Denies having any chest pain, shortness of breath or cough. No nausea or vomiting. No abdominal pain or diarrhea. PHYSICAL EXAMINATION: Blood pressure 158/72 with a pulse of 59, temperature 98.2. T-max is 101. She is 97% on room air. General description is an elderly female lying in bed in no distress. RESPIRATORY SYSTEM: Unlabored breathing. Clear to auscultation anteriorly. HEART: S1, S2. Regular rate and rhythm. ABDOMEN: Soft. No tenderness. LABS: Hemoglobin is 10.1, white count 6.6, BUN of 15, creatinine 0.72. DIAGNOSTIC IMPRESSION AND PLAN: Patient with a fever with concern for urinary tract infection. However, urine cultures have been negative. The patient still is spiking a fever despite being on Rocephin. We will obtain a CT of abdomen and pelvis with oral contrast. Continue with Rocephin and continue supportive care. MMODL / IJN: [id number] /
[2019-05-27] MEDS: SODIUM CHLORIDE 0.9% 1,000 ML IV SCH ×2 (00:27→10:20)
[2019-05-27] MEDS: HEPARIN SODIUM,PORCINE 5,000 UNIT/ML 1 ML VIAL SQ SCH (08:20)
[2019-05-27] MEDS: FOLIC ACID 1 MG TAB PO SCH (08:20)
[2019-05-27] MEDS: CALCIUM CARB-VIT D 500MG-200UN 1 EACH TAB PO SCH (08:20)
[2019-05-27] MEDS: PANTOPRAZOLE 40 MG TABLET PO SCH (08:20)
[2019-05-27] MEDS: CYANOCOBALAMIN 500 MCG TAB PO SCH (08:20)
[2019-05-27] MEDS: DICYCLOMINE 10 MG CAP PO SCH ×2 (08:20→12:39)
[2019-05-27] MEDS: TOPIRAMATE 25 MG TAB PO SCH (08:20)
[2019-05-27] MEDS: ASPIRIN 81 MG PO SCH (08:20)
[2019-05-27] MEDS: BACLOFEN 10 MG TAB PO SCH (08:20)
[2019-05-27] MEDS: VENLAFAXINE HCL ER 150 MG CAP PO SCH (08:21)
[2019-05-27] MEDS: GABAPENTIN 100 MG CAP PO SCH (08:21)
[2019-05-27] MEDS ORDERED: Acetaminophen-Codeine 300-30mg TAB PO PRN (11:18)
[2019-05-27 14:32] VITALS: BP 137/65; PULSE 87; RESP 14; TEMP 98.7
--- NOTE | 2019-05-27 15:24 | PN ---
PROGRESS NOTE DATE OF SERVICE: 05/27/2019 REASON FOR FOLLOWUP: Fever and a question of UTI. INTERVAL HISTORY: The patient did have a low-grade fever of 99.9 last night and this morning. The patient afebrile since then. The patient overall is feeling better. Breathing comfortably. No headache. No URI symptoms. No chest pain. No abdominal pain, no diarrhea. PHYSICAL EXAMINATION: Blood pressure 163/56, pulse of 92, temperature 98.3, he is 95% on room air. General description is an elderly female, lying in bed in no distress. RESPIRATORY SYSTEM: Unlabored breathing, clear to auscultation anteriorly. HEART: S1, S2. Regular rate and rhythm. ABDOMEN: Soft, no tenderness. LABS: Hemoglobin 7.1, white count of 6.6. Blood and urine culture have been negative. A CT abdominal and pelvis did not show any acute abnormality. DIAGNOSTIC IMPRESSION AND PLAN: Patient with fever with and urinary symptoms with concern for urinary tract infection. Blood culture has been negative. The patient overall fever responded to Rocephin as antibiotic was switched over to Ceftin 500 mg twice a day for another 5 days with close outpatient followup. MMODL / IJN: [id number] /
--- NOTE | 2019-05-28 15:38 | P.PN ---
Subjective Progress Note Date: 05/26/19 this is a 79-year-old female admitted with possible acute UTI with sepsis. cultures pending. Maintained on IV antibioticsof Rocephin as per infectious disease. T-max 101,denies fever or chills. Labs pending. denies nausea, vomiting, diarrhea. denies abdominal pain.ambulating, tolerating exertion well. Denies chest pain, palpitations or shortness of breath. Denies lightheadedness dizziness or focal deficits. Objective - Vital Signs Vital signs: Vital Signs Temp 98.2 F 05/26/19 13:43 Pulse 59 L 05/26/19 13:43 Resp 16 05/26/19 13:43 BP 158/72 05/26/19 13:43 Pulse Ox 97 05/26/19 13:43 Intake & Output 05/25/19 05/26/19 05/26/19 18:59 06:59 18:59 Intake Total 850 725 Balance 850 725 Intake: Intake, IV Titration 850 Amount Sodium Chloride 0.9% 1, 800 000 ml @ 100 mls/hr IV . Q10H [facility] Rx#:[id number] cefTRIAXone 1 gm In 50 Sodium Chloride 0.9% 50 ml @ 100 mls/hr IVPB ONCE ONE Rx#:[id number] Oral 725 Other: Voiding Method Toilet Toilet # Voids 3 3 - Exam PHYSICAL EXAM: VITAL SIGNS: [as above] GENERAL: sitting up in chair, no acute distress HEENT: Conjunctivae normal. eyes normal. oral mucosa moist NECK: No JVD. No thyroid enlargement. No LNs CARDIOVASCULAR: S1, S2 regular.. No murmur RESPIRATION: Breath sounds diminished in the bases. No rhonchi or crackles. No bronchial breathing. ABDOMEN: Soft, nontender . No guarding. no masses palpable. No ascites, No hepatosplenomegaly.Bowel sounds heard. LEGS: No edema. no swelling PSYCHIATRY: Alert and oriented X3, mood and affect normal. NERVOUS SYSTEM: Cranial N 2-12 grossly normal. Moves all 4 limbs. Diffuse weakness No focal deficits. Strength and sensation grossly intact.. Skin: no lesions, no rash Joints: No active swelling. No inflammation. Lymphatic system. No LN neck axilla or groin. - Labs CBC & Chem 7: 05/26/19 07:33 05/26/19 07:33 Labs: Abnormal Lab Results - Last 24 Hours (Table) 05/26/19 05/26/19 Range/Units 07:33 07:33 RBC 3.24 L (3.80-5.40) m/uL Hgb 10.1 L (11.4-16.0) gm/dL Hct 32.0 L (34.0-46.0) % Chloride 113 H (98-107) mmol/L Glucose 101 H (74-99) mg/dL Microbiology - Last 24 Hours (Table) 05/24/19 13:14 Blood Culture - Preliminary Blood No Growth after 48 hours 05/23/19 19:44 Blood Culture - Preliminary Blood No Growth after 48 hours Assessment and Plan Assessment: possible acute UTI with sepsis, present on admission -Change in mental status, acute metabolic encephalopathy, secondary to infection, improving -mild dehydration, present on admission improving -gastroesophageal reflux disease -Generative joint disease Plan: Continue on current medication regime ,monitoring and symptomatic treatment. abdominal CT pending. Follow cultures closely, antibiotics as per infectious disease. Labs pending. Discharge planning in progress for tomorrow pending infectious disease clearance. The impression and plan of care has been dictated as directed. : I performed a history and examination of this patient, discussed the same with the dictator. I agree with the dictator's note ,documented as a scribe. Any additional findings or plans will be noted.
--- NOTE | 2019-05-28 15:43 | P.DS ---
Providers Date of admission: 05/25/19 13:36 Expected date of discharge: 05/28/19 Attending physician: Jh Garcia Consults: 05/24/19 15:43 Consult Physician Routine Consulting Provider: Mony Ellis Consult Reason/Comments: elevated temp/uti Do you want consulting provider notified?: Already Contacted Primary care physician: Jh Garcia [facility] Course: final Diagnoses: -Possible acute UTI with sepsis, present on admission,cultures negative. -Change in mental status, acute metabolic encephalopathy, secondary to infection, improving -mild dehydration, present on admission improving -gastroesophageal reflux disease -Generative joint disease Hospital course:this is a 79-year-old female admitted with possible acute UTI with sepsis. cultures pending. Maintained on IV antibioticsof Rocephin as per infectious disease. T-max 101,denies fever or chills. Labs pending. denies nausea, vomiting, diarrhea. denies abdominal pain.ambulating, tolerating exertion well. Denies chest pain, palpitations or shortness of breath. Denies lightheadedness dizziness or focal deficits. maintained on IV antibiotics as per infectious disease, converted to oral.significant clinical improvement.cleared by infectious disease for discharge. Patient is being discharged home in stable condition with guarded prognosis. EXAM: GENERAL: alert and oriented 3,no acute distress CARDIOVASCULAR: S1, S2 regular.. No murmur RESPIRATION: Breath sounds diminished in the bases. No rhonchi or crackles. No wheezing ABDOMEN: Soft, nontender . No guarding. no masses palpable. Bowel sounds heard. NERVOUS SYSTEM: No focal deficits. Microbiology 05/24/19 13:14 Blood Blood Culture - Preliminary No Growth after 96 hours 05/26/19 11:20 Blood Blood Culture - Preliminary No Growth after 48 hours 05/23/19 19:44 Blood Blood Culture - Preliminary No Growth after 96 hours 05/23/19 21:02 Urine,Voided Urine Culture - Final The impression and plan of care has been dictated as directed. : I performed a history and examination of this patient, discussed the same with the dictator. I agree with the dictator's note ,documented as a scribe. Any additional findings or plans will be noted. Time taken: 35 minutes. Patient Condition at Discharge: Stable Plan - Discharge Summary Discharge Rx Participant: No New Discharge Prescriptions: New Cefuroxime Axetil [Ceftin] 500 mg PO BID #10 tab Continue Aspirin 81 mg PO DAILY Venlafaxine HCl [Effexor] 150 mg PO QAM Multivit-Min/FA/Lycopen/Lutein [Centrum Silver Tablet] 1 tab PO DAILY Gabapentin [Neurontin] 100 mg PO TID Certolizumab Pegol [Cimzia] 1 dose SQ Q30D Folic Acid 1 mg PO DAILY rOPINIRole HCL [Requip] 0.5 mg PO HS Calcium Carbonate/Vitamin D3 [Calcium 500-Vit D3 200 Tablet] 1 tab PO BID [place]-3 Fatty Acids/Fish Oil [Fish Oil 1,000 mg Softgel] 1 cap PO DAILY Cyanocobalamin (Vitamin B-12) [Vitamin B-12] 1,000 mcg PO DAILY Methotrexate Sodium [Methotrexate] 20 mg PO FR Dicyclomine [Bentyl] 10 mg PO ACHS Acetaminophen-Codeine 300-30mg [Tylenol w/codeine #3] 1 tab PO DAILY PRN PRN Reason: Headache Baclofen 10 mg PO TID Omeprazole 40 mg PO DAILY Topiramate [Topamax] 50 mg PO BID Discharge Medication List Aspirin 81 mg PO DAILY 06/17/18 [History] Multivit-Min/FA/Lycopen/Lutein [Centrum Silver Tablet] 1 tab PO DAILY 06/17/18 [History] Venlafaxine HCl [Effexor] 150 mg PO QAM 06/17/18 [History] Calcium Carbonate/Vitamin D3 [Calcium 500-Vit D3 200 Tablet] 1 tab PO BID 07/01/18 [History] Certolizumab Pegol [Cimzia] 1 dose SQ Q30D 07/01/18 [History] Folic Acid 1 mg PO DAILY 07/01/18 [History] Gabapentin [Neurontin] 100 mg PO TID 07/01/18 [History] rOPINIRole HCL [Requip] 0.5 mg PO HS 07/01/18 [History] Cyanocobalamin (Vitamin B-12) [Vitamin B-12] 1,000 mcg PO DAILY 09/12/18 [History] [place]-3 Fatty Acids/Fish Oil [Fish Oil 1,000 mg Softgel] 1 cap PO DAILY 09/12/18 [History] Dicyclomine [Bentyl] 10 mg PO ACHS 10/06/18 [History] Methotrexate Sodium [Methotrexate] 20 mg PO FR 10/06/18 [History] Acetaminophen-Codeine 300-30mg [Tylenol w/codeine #3] 1 tab PO DAILY PRN 12/19/18 [History] Baclofen 10 mg PO TID 12/19/18 [History] Omeprazole 40 mg PO DAILY 12/19/18 [History] Topiramate [Topamax] 50 mg PO BID 03/01/19 [History] Cefuroxime Axetil [Ceftin] 500 mg PO BID #10 tab 05/27/19 [Rx] Follow up Appointment(s)/Referral(s): Jh Garcia DO [Primary Care Provider] - 06/05/19 1:20 pm Mony Ellis MD [STAFF PHYSICIAN] - 06/03/19 1:00 pm Ambulatory/Diagnostic Orders: Complete Blood Count w/diff [LAB.AMB] Time Frame: 3 Days, Location: None Selected Patient Instructions/Handouts: Urinary Tract Infection in Women (DC) Discharge Disposition: HOME SELF-CARE
[2019-05-30] MEDS ORDERED: METHOTREXATE SODIUM 2.5 MG TAB PO SCH (09:00)
[2019-06-02] MEDS ORDERED: CERTOLIZUMAB PEGOL SQ SCH (09:00)
== END 2019-05-27 14:46 | disposition home or self-care (01) | DRG 871 ==
LOC: EC 18:27 → 4MS4W 20:55 → OBSVTOIN 05-25 13:36
PROVIDERS: ADMIT Family Medicine; ATTEND Family Medicine
DX: A41.9 Sepsis, unspecified organism (principal); G93.41 Metabolic encephalopathy; N39.0 Urinary tract infection, site not specified; F03.90 Unspecified dementia, unspecified severity, without behavioral disturbance, psychotic disturbance, mood disturbance, and anxiety; I45.10 Unspecified right bundle-branch block; M06.9 Rheumatoid arthritis, unspecified; E86.0 Dehydration; E87.6 Hypokalemia; G25.81 Restless legs syndrome; M19.90 Unspecified osteoarthritis, unspecified site; K21.9 Gastro-esophageal reflux disease without esophagitis; Z86.73 Personal history of transient ischemic attack (TIA), and cerebral infarction without residual deficits; Z79.82 Long term (current) use of aspirin; Z79.899 Other long term (current) drug therapy; Z87.01 Personal history of pneumonia (recurrent); Z87.440 Personal history of urinary (tract) infections; Z87.442 Personal history of urinary calculi; Z85.828 Personal history of other malignant neoplasm of skin; Z96.653 Presence of artificial knee joint, bilateral; Z90.49 Acquired absence of other specified parts of digestive tract; Z98.890 Other specified postprocedural states; Z98.42 Cataract extraction status, left eye; Z98.41 Cataract extraction status, right eye; Z88.8 Allergy status to other drugs, medicaments and biological substances; Z82.49 Family history of ischemic heart disease and other diseases of the circulatory system
CPT/HCPCS: 36415; 71046; 74177; 76700; 80048; 80053; 81001; 82550; 83605; 84484; 85025; 85610; 85730; 87040; 87086; 87502; 93005; 94760; 96361; 96365; 99285

== ENCOUNTER 2019-06-09 19:27 | Observation (INO) | payer MEDICARE ==
[2019-06-09] MEDS ORDERED: SODIUM CHLORIDE 0.9% 500 ML 500 ML IV ONE (20:28)
--- NOTE | 2019-06-09 20:38 | ED ---
General Adult HPI - General Chief complaint: Altered Mental Status Stated complaint: Confused, Poss UTI Time Seen by Provider: 06/09/19 19:47 Source: patient, RN notes reviewed, old records reviewed Mode of arrival: ambulatory Limitations: altered mental status - History of Present Illness Initial comments: 79-year-old female patient with past medical history significant for recent hospital admission secondary to UTI sepsis presents ED for chief complaint of altered mental status. providing much of history states that patient was discharged approximately 2 weeks ago after a four-day hospital stay for sepsis secondary to urinary tract infection. Reports that since discharge patient has been sleeping all day, limited eating and drinking, has become disoriented and had altered mental status. reports that patient has said things that don't make sense, has difficulty remembering recent events. Presents ED for further evaluation. At this time patient is alert and oriented able to answer all questions appropriately. States that she is not having any pain at this time. Denies any chest pain abdominal pain nausea vomiting diar caroline. Denies any headache or changes in vision. Systemic: Pt denies fatigue, fever/chills, rash. Pt denies weakness, night sweats, weight loss. Neuro: Pt denies headache, visual disturbances, syncope or pre-syncope. HEENT: Pt denies ocular discharge or irritation, otalgia, rhinorrhea, pharyngitis or notable lymphadenopathy. Cardiopulmonary: Pt denies chest pain, SOB, heart palpitations, dyspnea on exertion. Abdominal/GI: Pt denies abdominal pain, n/v/d. : Pt denies dysuria, burning w/ urination, frequency/urgency. Denies new onset urinary or bowel incontinence. MSK: Pt denies myalgia, loss of strength or function in extremities. Neuro: Pt denies new onset weakness, paresthesias. - Related Data Home Medications Medication Instructions Recorded Confirmed Aspirin 81 mg PO DAILY 06/17/18 06/09/19 Multivit-Min/FA/Lycopen/Lutein 1 tab PO DAILY 06/17/18 06/09/19 [Centrum Silver Tablet] Venlafaxine HCl [Effexor] 150 mg PO DAILY 06/17/18 06/09/19 Certolizumab Pegol [Cimzia] 400 mg SQ Q30D 07/01/18 06/09/19 Folic Acid 1 mg PO DAILY 07/01/18 06/09/19 Gabapentin [Neurontin] 100 mg PO TID 07/01/18 06/09/19 rOPINIRole HCL [Requip] 0.5 mg PO HS 07/01/18 06/09/19 [place]-3 Fatty Acids/Fish Oil [Fish 1 cap PO BID 09/12/18 06/09/19 Oil 1,000 mg Softgel] Dicyclomine [Bentyl] 10 mg PO ACHS 10/06/18 06/09/19 Methotrexate Sodium [Methotrexate] 20 mg PO FR 10/06/18 06/09/19 Acetaminophen-Codeine 300-30mg 1 tab PO DAILY PRN 12/19/18 06/09/19 [Tylenol w/codeine #3] Baclofen 10 mg PO TID 12/19/18 06/09/19 Omeprazole 40 mg PO DAILY 12/19/18 06/09/19 Calcium Carbonate 500 mg PO BID 06/09/19 06/09/19 Cyanocobalamin (Vitamin B-12) 5,000 mcg PO DAILY 06/09/19 06/09/19 [Vitamin B-12] Topiramate [Topamax] 50 mg PO BID 06/09/19 06/09/19 Allergies Allergy/AdvReac Type Severity Reaction Status Date / Time etodolac [From Lodine] Allergy Rash/Hives Verified 06/09/19 20:15 nabumetone [From Relafen] Allergy Rash/Hives Verified 06/09/19 20:15 naproxen [From Naprosyn] Allergy Rash/Hives Verified 06/09/19 20:15 NSAIDS (Non-Steroidal Allergy Rash/Hives Verified 06/09/19 20:15 Anti-Inflamma Review of Systems ROS Statement: Those systems with pertinent positive or pertinent negative responses have been documented in the HPI. ROS Other: All systems not noted in ROS Statement are negative. Past Medical History Past Medical History: Cancer, CVA/TIA, GERD/Reflux, Osteoarthritis (OA), Pneumonia, Renal Disease, Rheumatoid Arthritis (RA) Additional Past Medical History / Comment(s): Spouse thinks pt may have the very beginnnings of dementia, arthritis in multiple joints, RLS, UTIs, stress headaches, pericardial effusion, pleurisy, Skin cancer on her nose. Cut on L finger. Kidney stones. History of Any Multi-Drug Resistant Organisms: None Reported Past Surgical History: Cholecystectomy, Joint Replacement, Orthopedic Surgery Additional Past Surgical History / Comment(s): Rotator cuff (R); Ric Knee Replacement; Panniculectomy, bilateral legs varicose vein surgery, colonoscopies-normal, bilateral cataract removal, FNA abdominal seroma, cystoscopy/bladder bx/lithotripsy with R ureteral stent., Past Anesthesia/Blood Transfusion Reactions: No Reported Reaction Additional Past Anesthesia/Blood Transfusion Reaction / Comment(s): Pt has received blood after panniculectomy without reaction. Past Psychological History: No Psychological Hx Reported Smoking Status: Never smoker Past Alcohol Use History: None Reported Past Drug Use History: None Reported - Past Family History Mother Family Medical History: Myocardial Infarction ([place]) Additional Family Medical History / Comment(s): Mother at age 69 yrs after having the flu and complicated by a [place]. Father Additional Family Medical History / Comment(s): IBS. Father at age 78yrs. General Exam - General Exam Comments Initial Comments: Constitutional: NAD, AOX3, Pt has pleasant affect. HEENT: NC/AT, trachea midline, neck supple, no lymphadenopathy. Posterior pharynx non erythematous, without exudates. External ears appear normal, without discharge. Mucous membranes moist. Eyes PERRLA, EOM intact. There is no scleral icterus. No pallor noted. Cardiopulmonary: RRR, no murmurs, rubs or gallops, no JVD noted. Lungs CTAB in anterior and posterior eden. No peripheral edema. Abdominal exam: Abdomen soft and non-distended. Abdomen non-tender to palpation in all 4 quadrants. Bowel sounds active in LLQ. No hepatosplenomegaly. No ecchymosis Neuro: CN II-XII intact. No nuchal rigidity. No raccon eyes, no hankins sign, no hemotympanum. No cervical spinal tenderness. MSK: No posterior calf tenderness bilaterally, homans sign negative bilaterally. Posterior tibialis and radial pulse +2 bilaterally. Sensation intact in upper and lower extremities. Full active ROM in upper and lower extremities, 5/5 stregnth. Limitations: altered mental status Course Vital Signs 06/09/19 06/09/19 06/09/19 19:32 20:34 21:34 Temperature 98.3 F Pulse Rate 59 L 60 55 L Respiratory 14 18 18 Rate Blood Pressure 154/73 120/63 134/55 O2 Sat by Pulse 96 99 96 Oximetry 06/09/19 06/10/19 22:30 00:30 Temperature Pulse Rate 56 L 51 L Respiratory 20 20 Rate Blood Pressure 135/71 151/65 O2 Sat by Pulse 99 99 Oximetry Medical Decision Making - Medical Decision Making 79-year-old female patient with past medical history significant for recent hospital admission secondary to UTI sepsis presents ED for chief complaint of altered mental status. providing much of history states that patient was discharged approximately 2 weeks ago after a four-day hospital stay for sepsis secondary to urinary tract infection. Reports that since discharge patient has been sleeping all day, limited eating and drinking, has become disoriented and had altered mental status. reports that patient has said things that don't make sense, has difficulty remembering recent events. Presents ED for further evaluation. At this time patient is alert and oriented able to answer all questions appropriately. States that she is not having any pain at this time. Denies any chest pain abdominal pain nausea vomiting diarrhea. Denies any headache or changes in vision. Patient vital signs stable, afebrile. Physical exam did not display acute pathology. Neurologic exam within normal limits. Patient answering questions appropriately. Laboratory investigations revealed mild urinary tract infection. EKG nonischemic. Patient administered Rocephin for urinary tract infection. apparently left patient. Multiple attempts to contact were unsuccessful. Patient be admitted to observation. Case discussed with Dr. Mackenzie. - Lab Data Result diagrams: 06/09/19 21:37 06/09/19 21:37 Lab Results 06/09/19 06/09/19 06/09/19 Range/Units 21:37 21:37 21:37 WBC 7.3 (3.8-10.6) k/uL RBC 4.11 (3.80-5.40) m/uL Hgb 12.4 (11.4-16.0) gm/dL Hct 38.9 (34.0-46.0) % MCV 94.7 (80.0-100.0) fL MCH 30.2 (25.0-35.0) pg MCHC 31.9 (31.0-37.0) g/dL RDW 13.2 (11.5-15.5) % Plt Count 365 (150-450) k/uL Neutrophils % 65 % Lymphocytes % 22 % Monocytes % 7 % Eosinophils % 3 % Basophils % 1 % Neutrophils # 4.7 (1.3-7.7) k/uL Lymphocytes # 1.6 (1.0-4.8) k/uL Monocytes # 0.5 (0-1.0) k/uL Eosinophils # 0.2 (0-0.7) k/uL Basophils # 0.0 (0-0.2) k/uL Hypochromasia Slight PT 10.2 (9.0-12.0) sec INR 0.9 (<1.2) APTT 23.6 (22.0-30.0) sec Sodium 142 (137-145) mmol/L Potassium 4.1 (3.5-5.1) mmol/L Chloride 109 H (98-107) mmol/L Carbon Dioxide 22 (22-30) mmol/L Anion Gap 11 mmol/L BUN 17 (7-17) mg/dL Creatinine 0.98 (0.52-1.04) mg/dL Est GFR (CKD-EPI)AfAm 64 (>60 ml/min/1.73 sqM) Est GFR (CKD-EPI)NonAf 55 (>60 ml/min/1.73 sqM) Glucose 110 H (74-99) mg/dL Calcium 9.2 (8.4-10.2) mg/dL Phosphorus 4.1 (2.5-4.5) mg/dL Magnesium 2.3 (1.6-2.3) mg/dL Total Bilirubin 0.3 (0.2-1.3) mg/dL AST 19 (14-36) U/L ALT 24 (9-52) U/L Alkaline Phosphatase 122 (38-126) U/L Ammonia (<30) umol/L Troponin I (0.000-0.034) ng/mL Total Protein 6.6 (6.3-8.2) g/dL Albumin 3.3 L (3.5-5.0) g/dL Urine Color Urine Appearance (Clear) Urine pH (5.0-8.0) Ur Specific [place] (1.001-1.035) Urine Protein (Negative) Urine Glucose (UA) (Negative) Urine Ketones (Negative) Urine Blood (Negative) Urine Nitrite (Negative) Urine Bilirubin (Negative) Urine Urobilinogen (<2.0) mg/dL Ur Leukocyte Esterase (Negative) Urine RBC (0-5) /hpf Urine WBC (0-5) /hpf Ur Squamous Epith Cells (0-4) /hpf Calcium Oxalate Crystal (None) /hpf Hyaline Casts (0-2) /lpf Urine Mucus (None) /hpf 06/09/19 06/09/19 06/09/19 Range/Units 21:37 21:37 21:37 WBC (3.8-10.6) k/uL RBC (3.80-5.40) m/uL Hgb (11.4-16.0) gm/dL Hct (34.0-46.0) % MCV (80.0-100.0) fL MCH (25.0-35.0) pg MCHC (31.0-37.0) g/dL RDW (11.5-15.5) % Plt Count (150-450) k/uL Neutrophils % % Lymphocytes % % Monocytes % % Eosinophils % % Basophils % % Neutrophils # (1.3-7.7) k/uL Lymphocytes # (1.0-4.8) k/uL Monocytes # (0-1.0) k/uL Eosinophils # (0-0.7) k/uL Basophils # (0-0.2) k/uL Hypochromasia PT (9.0-12.0) sec INR (<1.2) APTT (22.0-30.0) sec Sodium (137-145) mmol/L Potassium (3.5-5.1) mmol/L Chloride (98-107) mmol/L Carbon Dioxide (22-30) mmol/L Anion Gap mmol/L BUN (7-17) mg/dL Creatinine (0.52-1.04) mg/dL Est GFR (CKD-EPI)AfAm (>60 ml/min/1.73 sqM) Est GFR (CKD-EPI)NonAf (>60 ml/min/1.73 sqM) Glucose (74-99) mg/dL Calcium (8.4-10.2) mg/dL Phosphorus (2.5-4.5) mg/dL Magnesium (1.6-2.3) mg/dL Total Bilirubin (0.2-1.3) mg/dL AST (14-36) U/L ALT (9-52) U/L Alkaline Phosphatase (38-126) U/L Ammonia <9 (<30) umol/L Troponin I <0.012 (0.000-0.034) ng/mL Total Protein (6.3-8.2) g/dL Albumin (3.5-5.0) g/dL Urine Color Yellow Urine Appearance Clear (Clear) Urine pH 6.5 (5.0-8.0) Ur Specific [place] 1.018 (1.001-1.035) Urine Protein Trace H (Negative) Urine Glucose (UA) Negative (Negative) Urine Ketones Negative (Negative) Urine Blood Negative (Negative) Urine Nitrite Negative (Negative) Urine Bilirubin Negative (Negative) Urine Urobilinogen <2.0 (<2.0) mg/dL Ur Leukocyte Esterase Small H (Negative) Urine RBC 4 (0-5) /hpf Urine WBC 12 H (0-5) /hpf Ur Squamous Epith Cells 1 (0-4) /hpf Calcium Oxalate Crystal Few H (None) /hpf Hyaline Casts 54 H (0-2) /lpf Urine Mucus Rare H (None) /hpf - EKG Data -: EKG Interpreted by Me (and Dr. Mackenzie) EKG Comments: Sinus bradycardia first-degree AV block, Block, minimal voltage criteria for LVH, inferior infarct age undetermined, abnormal EKG, no concern for acute ischemia. Disposition Clinical Impression: UTI (urinary tract infection) Disposition: ADMITTED IP TO THIS HOSP Condition: Fair Is patient prescribed a controlled substance at d/c from ED?: No Referrals: Jh Garcia DO [Primary Care Provider] - 1-2 days
--- NOTE | 2019-06-09 21:25 | XR ---
EXAMINATION TYPE: XR chest 2V DATE OF EXAM: 06/09/2019 COMPARISON: 05/23/2019 HISTORY: Altered mental status TECHNIQUE: Frontal and lateral views of the chest are obtained. FINDINGS: Heart is normal. Lungs are clear of infiltrate. There is no pleural effusion. There are ch est leads. Bony thorax is intact. IMPRESSION: No active cardiopulmonary disease. No adverse change compared to old exam.
--- NOTE | 2019-06-09 21:27 | CT ---
EXAMINATION TYPE: CT brain wo con DATE OF EXAM: 06/09/2019 COMPARISON: 03/01/2019 HISTORY: AMS. PT said she has started to repeat things, tremors in extremities. Hx UTI CT DLP: 1099.4 mGycm Automated exposure control for dose reduction was used. FINDINGS: There is some cerebral cortical atrophy. There is no mass effect nor midline shift. There is no sign of intracranial hemorrhage. The calvarium is intact. IMPRESSION: CEREBRAL ATROPHY. NO ACUTE INTRACRANIAL ABNORMALITY. NO CHANGE.
[2019-06-09 21:50] LABS: Basophils % (A) 1 %; Eosinophils # (A) 0.2 k/uL (0-0.7); Eosinophils % (A) 3 %; HCT 38.9 % (34.0-46.0); HGB 12.4 gm/dL (11.4-16.0); Hypochromasia Slight; Lymphocytes # (A) 1.6 k/uL (1.0-4.8); Lymphocytes % (A) 22 %; MCH 30.2 pg (25.0-35.0); MCHC 31.9 g/dL (31.0-37.0); MCV 94.7 fL (80.0-100.0); Monocytes # (A) 0.5 k/uL (0-1.0); Monocytes % (A) 7 %; Neutrophils # (A) 4.7 k/uL (1.3-7.7); Neutrophils % (A) 65 %; Platelet Count 365 k/uL (150-450); RBC 4.11 m/uL (3.80-5.40); RDW 13.2 % (11.5-15.5); WBC 7.3 k/uL (3.8-10.6)
[2019-06-09 22:00] LABS: Appearance,Urine Clear (Clear); Bilirubin,Urine Negative (Negative); Blood,Urine Negative (Negative); Calcium Oxalate Crystals,Urine Few /hpf; Color,Urine Yellow; Glucose,Urine (UA) Negative (Negative); Hyaline Casts,Urine 54 /lpf (0-2); INR 0.9 (<1.2); Ketones,Urine Negative (Negative); Leukocyte Esterase,Urine Small (Negative); Mucus,Urine Rare /hpf; Nitrite,Urine Negative (Negative); PH, Urine 6.5 (5.0-8.0); Partial Thromboplastin Time 23.6 sec (22.0-30.0); Protein,Urine Trace (Negative); Prothrombin Time 10.2 sec (9.0-12.0); RBC,Urine 4 /hpf (0-5); Specific Gravity,Urine 1.018 (1.001-1.035); Squamous Epithelial Cell,Urine 1 /hpf (0-4); Urobilinogen,Urine <2.0 mg/dL (<2.0); WBC,Urine 12 /hpf (0-5)
[2019-06-09 22:02] LABS: Albumin 3.3 g/dL (3.5-5.0); Calcium 9.2 mg/dL (8.4-10.2); Magnesium 2.3 mg/dL (1.6-2.3); Phosphorus 4.1 mg/dL (2.5-4.5); Potassium 4.1 mmol/L (3.5-5.1); Total Bilirubin 0.3 mg/dL (0.2-1.3); Total Protein 6.6 g/dL (6.3-8.2)
[2019-06-09] MEDS ORDERED: cefTRIAXone IN SWFI 1,000 MG/10 ML SYRINGE IVP ONE (23:00)
[2019-06-10] MEDS ORDERED: NALOXONE 0.4 MG/ML 1 ML VIAL IV PRN (00:49)
[2019-06-10] MEDS: SODIUM CHLORIDE 0.9% 1,000 ML IV SCH ×2 (01:36→12:05)
[2019-06-10 02:21] VITALS: BMI 23.3
[2019-06-10] MEDS: CYANOCOBALAMIN 500 MCG TAB PO SCH (08:35)
[2019-06-10] MEDS: MULTIVITAMINS, THERA 1 EACH TAB PO SCH (08:35)
[2019-06-10] MEDS: BACLOFEN 10 MG TAB PO SCH ×3 (08:35→19:55)
[2019-06-10] MEDS: FOLIC ACID 1 MG TAB PO SCH (08:35)
[2019-06-10] MEDS: CALCIUM CARBONATE 500 MG CHEWABLE PO SCH ×2 (08:36→19:55)
[2019-06-10] MEDS: ASPIRIN 81 MG PO SCH (08:36)
[2019-06-10] MEDS: GABAPENTIN 100 MG CAP PO SCH ×3 (08:38→19:56)
[2019-06-10] MEDS: PANTOPRAZOLE 40 MG TABLET PO SCH (08:38)
[2019-06-10] MEDS: VENLAFAXINE HCL ER 150 MG CAP PO SCH (08:38)
[2019-06-10] MEDS ORDERED: TOPIRAMATE 25 MG TAB PO SCH (09:00)
[2019-06-10] MEDS: DICYCLOMINE 10 MG CAP PO SCH ×3 (12:00→19:55)
--- NOTE | 2019-06-10 15:51 | P.CNNES ---
History of Present Illness Consult date: 06/10/19 Reason for Consult: Confusion History of Present Illness: REFERRING PHYSICIAN: Dr. Jh Garcia HISTORY OF PRESENT ILLNESS: Thank you for allowing me to evaluate Ms. Monica Carolina. Ms. Carolina is a 79-year-old woman with past medical history of stroke, GERD, rheumatoid arthritis, restless leg syndrome, pericardial effusion, skin cancer, kidney stones, mild cognitive impairment, presenting to [facility] for altered mental status. Of note, patient was recently admitted for UTI sepsis about 2 weeks ago. reported that since discharge, patient had been sleeping all day, not eating or drinking much, and became altered where patient would say things that did not make any sense and has difficulty remembering events. is at bedside providing additional information. He states that 2 weeks ago, when he got the antibiotics for UTI, all her symptoms went away. He states that patient had random jerking movements of her upper extremities also with having some difficulty with her mentation. She always does her checks, by symptoms about a year ago, she's been having some difficulties with it. She was not feeling well since last Sunday, for which patient was not able to attend jehovah's witness on Sunday. Compared to yesterday, patient looks much better to the patient and her , but the continues to endorse that this is not the "usual Monica." Patient denies any headache, nausea, vomiting, dizziness, weakness, numbness, tingling. Patient does endorse pain with urination and increased frequency. PAST MEDICAL HISTORY: stroke, GERD, rheumatoid arthritis, restless leg syndrome, pericardial effusion, skin cancer, kidney stones, mild cognitive impairment PAST SURGICAL HISTORY: Cholecystectomy, rotator cuff repair, bilateral knee replacement, bilateral leg vertical space surgery, bilateral cataract removal, FNA, panniculectomy, bladder biopsy with right ureter stent HOME MEDICATIONS: Aspirin, venlafaxine, multivitamins, gabapentin, Certolizumab, folic acid, ropinirole, omega-3, methotrexate, dicyclomine, baclofen, omeprazole, calcium, Topamax, vitamin B12 ALLERGIES: Etodolac, nabumetone, naproxen, NSAIDs SOCIAL HISTORY: Never smoker FAMILY HISTORY: Mother with myocardial infarction. Father had IBS. REVIEW OF SYSTEMS: The 14 systems are reviewed and no additional points are identified compared to the review of systems documented history and physical PHYSICAL EXAMINATION: VITAL SIGNS: T 97.9 HR 62 RR 16 BP 144/75 O2 sat 94% on room air GEN.: NAD, pleasant and cooperative HEENT: NCAT, sclera without icterus NECK: Supple, no carotid bruit SKIN AND EXTREMITIES: Warm to touch, no edema NEURO: MENTAL STATUS: Patient alert and oriented to self, place, time. Able to name the current president. Speech fluent, able to name and repeat, following all commands readily. No right and left disorientation, extinction to double simultaneous stimulation, finger agnosia, neglect. CRANIAL NERVES II THROUGH XII: II: Pupils are equal and reactive to light symmetrically. No afferent pupillary defect. Visual eden are intact. III, IV, : No ptosis. Extraocular movements full. No nystagmus. V: Facial sensation intact from V1-3. VII. No clear facial asymmetry. VIII: Hearing intact to finger rub bilaterally. IX, X: Symmetric palate elevation. XI: Shoulder shrug intact. XII: Tongue midline without fasciculation or atrophy. MOTOR: Normal bulk/tone. No pronator drift or tremor. Strength is 5/5 throughout all 4 extremities. SENSORY: Intact to light touch, temperature, pinprick in all 4 extremities. Romberg is negative. REFLEXES: 2+ throughout. Toes are downgoing. No clonus. Luisana's is absent COORDINATION: Finger to nose and heel to lozano intact. No dysmetria. Rapid alternating movements with good speed and accuracy. GAIT: Narrow-based and stable. Able to toe/heel/tandem walk DIAGNOSTIC TESTING: LABORATORY: WBC 7.3 Hgb 12.4 platelets 365 PT 10.2 INR 0.9 Sodium 142 potassium 4.1 chloride 109 bicarb 22 BUN 17 creatinine 0.98 glucose 110 AST 19 ALT 24 alk phos 122 ammonia <9 troponin <0.012 urinalysis small LE, 12 WBC, few calcium oxalate, 54 hyaline casts, rare mucus IMAGING: CT head without contrast 06/09/2019: Cerebral atrophy. No acute intracranial abnormality. ASSESSMENT: Ms. Carolina is a 79-year-old woman with past medical history of stroke, GERD, rheumatoid arthritis, restless leg syndrome, pericardial effusion, skin cancer, kidney stones, mild cognitive impairment, presenting to [facility] for altered mental status. Urinalysis with mild leukesterase. Patient since admission has not been treated with antibiotics, but she already is showing improvement in her mentation. Patient is also on Topamax most likely for her headaches, but Topamax could be causing some mental haziness as a side effect. RECOMMENDATIONS: 1. Routine EEG 2. Labs: TSH, Vitamin B12 3. Taper down topamax to 25mg BID for 5 days; then 25mg qday for 5 days then discontinue 4. Neurology will continue to follow Past Medical History Past Medical History: Cancer, CVA/TIA, GERD/Reflux, Osteoarthritis (OA), Pneumonia, Renal Disease, Rheumatoid Arthritis (RA) Additional Past Medical History / Comment(s): Spouse thinks pt may have the very beginnnings of dementia, arthritis in multiple joints, RLS, UTIs, stress headaches, pericardial effusion, pleurisy, Skin cancer on her nose. Cut on L finger. Kidney stones. History of Any Multi-Drug Resistant Organisms: None Reported Past Surgical History: Cholecystectomy, Joint Replacement, Orthopedic Surgery Additional Past Surgical History / Comment(s): Rotator cuff (R); Ric Knee Replacement; Panniculectomy, bilateral legs varicose vein surgery, colonoscopies-normal, bilateral cataract removal, FNA abdominal seroma, cystoscopy/bladder bx/lithotripsy with R ureteral stent., Past Anesthesia/Blood Transfusion Reactions: No Reported Reaction Additional Past Anesthesia/Blood Transfusion Reaction / Comment(s): Pt has received blood after panniculectomy without reaction. Past Psychological History: No Psychological Hx Reported Additional Psychological History / Comment(s): pt is extremely confused. a&ox1. Smoking Status: Never smoker Past Alcohol Use History: None Reported Past Drug Use History: None Reported - Past Family History Mother Family Medical History: Myocardial Infarction ([place]) Additional Family Medical History / Comment(s): Mother at age 69 yrs after having the flu and complicated by a [place]. Father Additional Family Medical History / Comment(s): IBS. Father at age 78yrs. Medications and Allergies Home Medications Medication Instructions Recorded Confirmed Type Aspirin 81 mg PO DAILY 06/17/18 06/09/19 History Multivit-Min/FA/Lycopen/Lutein 1 tab PO DAILY 06/17/18 06/09/19 History [Centrum Silver Tablet] Venlafaxine HCl [Effexor] 150 mg PO DAILY 06/17/18 06/09/19 History Certolizumab Pegol [Cimzia] 400 mg SQ Q30D 07/01/18 06/09/19 History Folic Acid 1 mg PO DAILY 07/01/18 06/09/19 History Gabapentin [Neurontin] 100 mg PO TID 07/01/18 06/09/19 History rOPINIRole HCL [Requip] 0.5 mg PO HS 07/01/18 06/09/19 History [place]-3 Fatty Acids/Fish Oil [Fish 1 cap PO BID 09/12/18 06/09/19 History Oil 1,000 mg Softgel] Dicyclomine [Bentyl] 10 mg PO ACHS 10/06/18 06/09/19 History Methotrexate Sodium [Methotrexate] 20 mg PO FR 10/06/18 06/09/19 History Acetaminophen-Codeine 300-30mg 1 tab PO DAILY PRN 12/19/18 06/09/19 History [Tylenol w/codeine #3] Baclofen 10 mg PO TID 12/19/18 06/09/19 History Omeprazole 40 mg PO DAILY 12/19/18 06/09/19 History Calcium Carbonate 500 mg PO BID 06/09/19 06/09/19 History Cyanocobalamin (Vitamin B-12) 5,000 mcg PO DAILY 06/09/19 06/09/19 History [Vitamin B-12] Topiramate [Topamax] 50 mg PO BID 06/09/19 06/09/19 History Allergies Allergy/AdvReac Type Severity Reaction Status Date / Time etodolac [From Lodine] Allergy Rash/Hives Verified 06/09/19 20:15 nabumetone [From Relafen] Allergy Rash/Hives Verified 06/09/19 20:15 naproxen [From Naprosyn] Allergy Rash/Hives Verified 06/09/19 20:15 NSAIDS (Non-Steroidal Allergy Rash/Hives Verified 06/09/19 20:15 Anti-Inflamma Physical Examination - Vital Signs Vital Signs: Vital Signs Temp Pulse Pulse Resp BP BP Pulse Ox 06/10/19 04:57 97.9 F 62 16 144/75 94 L 06/10/19 02:12 97.8 F 61 16 182/69 96 06/10/19 00:30 51 L 20 151/65 99 06/09/19 22:30 56 L 20 135/71 99 06/09/19 21:34 55 L 18 134/55 96 06/09/19 20:34 60 18 120/63 99 06/09/19 19:32 98.3 F 59 L 14 154/73 96 Intake and Output 06/09/19 06/10/19 06/10/19 22:59 06:59 14:59 Intake Total 550 Balance 550 Intake: Amount of Fluid Infused ( 550 ml) Other: Voiding Method Diaper # Voids 1 Weight 65.544 kg Results - Laboratory Findings CBC and BMP: 06/09/19 21:37 06/09/19 21:37 Abnormal Lab Findings: Abnormal Labs 06/09/19 06/09/19 21:37 21:37 Chloride 109 H Glucose 110 H Albumin 3.3 L Urine Protein Trace H Ur Leukocyte Esterase Small H Urine WBC 12 H Calcium Oxalate Crystal Few H Hyaline Casts 54 H Urine Mucus Rare H
[2019-06-10] MEDS: TOPIRAMATE 25 MG TAB PO SCH (19:55)
[2019-06-11] MEDS: SODIUM CHLORIDE 0.9% 1,000 ML IV SCH ×2 (03:26→13:16)
[2019-06-11 07:51] LABS: T4, Free (Free Thyroxine) 1.58 ng/dL (0.78-2.19)
--- NOTE | 2019-06-11 07:54 | P.HPIM ---
History of Present Illness H&P Date: 06/10/19 this a pleasant 79-year-old white female who was admitted to the emergency departmentwith acute confusion and mental status changes she denies anain she denies any nausea vomiting diarrhea constipation. She had recently been discharged from the hospital with urinary tract infectionwhich has been tr eated.she also has decre and not acting hersel as a late. Review of Systems GENERAL: Patient denies fever. Denies chills. EYES: Denies blurred vision. Denies vision changes. Denies eye pain. EARS, NOSE, MOUTH, & THROAT: Denies headache. Denies sore throat. Denies ear pain. RESPIRATORY: Denies cough. Denies shortness of breath. Denies sputum production. Denies hemoptysis. CARDIOVASCULAR: Denies chest pain or pressure. Denies palpitations. Denies arrhythmias. GASTROINTESTINAL: Denies abdominal pain. Denies diarrhea. Denies constipation. Denies nausea. Denies vomiting. Denies heartburn. Denies blood in the stool. GENITOURINARY: recent urinary tract infection with urinary frequency. Denies burning. Denies dysuria. Denies cloudy urine. Denies blood in the urine. MUSCULOSKELETAL:admits to rheumatoid arthritis with myalgias andjoint swelling. . INTEGUMENTARY: Denies pruitis. Denies rash. PSYCHIATRIC: Denies suicidal or homicial ideations. ENDOCRINE: Denies weight change. Denies polydipsia. Denies polyuria. HEMATOLOGIC: Denies bleeding disorders. Past Medical History Past Medical History: Cancer, CVA/TIA, GERD/Reflux, Osteoarthritis (OA), Pneumonia, Renal Disease, Rheumatoid Arthritis (RA) Additional Past Medical History / Comment(s): Spouse thinks pt may have the very beginnnings of dementia, arthritis in multiple joints, RLS, UTIs, stress headaches, pericardial effusion, pleurisy, Skin cancer on her nose. Cut on L finger. Kidney stones. History of Any Multi-Drug Resistant Organisms: None Reported Past Surgical History: Cholecystectomy, Joint Replacement, Orthopedic Surgery Additional Past Surgical History / Comment(s): Rotator cuff (R); Ric Knee Replacement; Panniculectomy, bilateral legs varicose vein surgery, colonoscopies-normal, bilateral cataract removal, FNA abdominal seroma, cystoscopy/bladder bx/lithotripsy with R ureteral stent., Past Anesthesia/Blood Transfusion Reactions: No Reported Reaction Additional Past Anesthesia/Blood Transfusion Reaction / Comment(s): Pt has received blood after panniculectomy without reaction. Past Psychological History: No Psychological Hx Reported Additional Psychological History / Comment(s): pt is extremely confused. a&ox1. Smoking Status: Never smoker Past Alcohol Use History: None Reported Past Drug Use History: None Reported - Past Family History Mother Family Medical History: Myocardial Infarction (LA) Additional Family Medical History / Comment(s): Mother at age 69 yrs after having the flu and complicated by a LA. Father Additional Family Medical History / Comment(s): IBS. Father at age 78yrs. Medications and Allergies Home Medications Medication Instructions Recorded Confirmed Type Aspirin 81 mg PO DAILY 06/17/18 06/09/19 History Multivit-Min/FA/Lycopen/Lutein 1 tab PO DAILY 06/17/18 06/09/19 History [Centrum Silver Tablet] Venlafaxine HCl [Effexor] 150 mg PO DAILY 06/17/18 06/09/19 History Certolizumab Pegol [Cimzia] 400 mg SQ Q30D 07/01/18 06/09/19 History Folic Acid 1 mg PO DAILY 07/01/18 06/09/19 History Gabapentin [Neurontin] 100 mg PO TID 07/01/18 06/09/19 History rOPINIRole HCL [Requip] 0.5 mg PO HS 07/01/18 06/09/19 History [place]-3 Fatty Acids/Fish Oil [Fish 1 cap PO BID 09/12/18 06/09/19 History Oil 1,000 mg Softgel] Dicyclomine [Bentyl] 10 mg PO ACHS 10/06/18 06/09/19 History Methotrexate Sodium [Methotrexate] 20 mg PO FR 10/06/18 06/09/19 History Acetaminophen-Codeine 300-30mg 1 tab PO DAILY PRN 12/19/18 06/09/19 History [Tylenol w/codeine #3] Baclofen 10 mg PO TID 12/19/18 06/09/19 History Omeprazole 40 mg PO DAILY 12/19/18 06/09/19 History Calcium Carbonate 500 mg PO BID 06/09/19 06/09/19 History Cyanocobalamin (Vitamin B-12) 5,000 mcg PO DAILY 06/09/19 06/09/19 History [Vitamin B-12] Topiramate [Topamax] 50 mg PO BID 06/09/19 06/09/19 History Allergies Allergy/AdvReac Type Severity Reaction Status Date / Time etodolac [From Lodine] Allergy Rash/Hives Verified 06/09/19 20:15 nabumetone [From Relafen] Allergy Rash/Hives Verified 06/09/19 20:15 naproxen [From Naprosyn] Allergy Rash/Hives Verified 06/09/19 20:15 NSAIDS (Non-Steroidal Allergy Rash/Hives Verified 06/09/19 20:15 Anti-Inflamma Physical Exam Osteopathic Statement: *. No significant issues noted on an osteopathic structural exam other than those noted in the History and Physical/Consult. Vitals: Vital Signs Temp Pulse Pulse Resp BP BP Pulse Ox 06/10/19 14:40 98.5 F 75 17 148/61 94 L 06/10/19 04:57 97.9 F 62 16 144/75 94 L 06/10/19 02:12 97.8 F 61 16 182/69 96 06/10/19 00:30 51 L 20 151/65 99 Intake and Output 06/10/19 06/10/19 06/11/19 14:59 22:59 06:59 Intake Total 400 Balance 400 Intake: Oral 400 Other: Voiding Method Toilet Toilet Diaper Diaper # Voids 3 # Bowel Movements 0 Weight 65.544 kg GENERAL: This is 79year-old in no apparent distress at the time of examination. Pleasant and cooperative. HEENT: Head is atraumatic, normocephalic. Pupils are equal, round, and reactive to light. Sclerae anicteric. Conjunctivae are clear. Mucus membranes of the mouth are moist. Neck is supple. RESPIRATORY: Clear to auscultation. No wheezes, rales, or rhonchi. No use of accessory muscles. CARDIOVASCULAR: Regular rate and rhythm. S1 and S2 noted. No systolic or diastolic murmur auscultated. No JVD noted. No S3 or S4 noted. GASTROINTESTINAL: No distention noted. Abdomen soft and round. Normal active bowel sounds auscultated x 4 quadrants. No pain or tenderness noted upon palpation. INTEGUMENTARY: No cyanosis. No jaundice. No rashes noted. No cellulitis noted. EXTREMITIES: 2+ peripheral pulses. No evidence of peripheral edema. No calf tenderness noted. NEUROLOGIC: Cranial nerves II-XII intact. PSYCHIATRIC: Awake, alert, and oriented X 3. Appropriate affect. Results CBC & Chem 7: 06/09/19 21:37 06/09/19 21:37 Thrombosis Risk Factor Assmnt - Choose All That Apply Any of the Below Risk Factors Present?: No Other Risk Factors: Yes Each Risk Factor Represents 3 Points: Age 75 years or older Thrombosis Risk Factor Assessment Total Risk Factor Score: 3 Thrombosis Risk Factor Assessment Level: Moderate Risk Assessment and Plan (1) UTI (urinary tract infection) Current Visit: Yes Status: Acute Code(s): N39.0 - URINARY TRACT INFECTION, SITE NOT SPECIFIED SNOMED Code(s): 46716054 (2) Abdominal pain Current Visit: No Status: Acute Code(s): R10.9 - UNSPECIFIED ABDOMINAL PAIN SNOMED Code(s): 17600886 (3) Acute kidney injury Current Visit: No Status: Acute Code(s): N17.9 - ACUTE KIDNEY FAILURE, UNSPECIFIED SNOMED Code(s): 34093486 (4) Altered mental status Current Visit: No Status: Acute Code(s): R41.82 - ALTERED MENTAL STATUS, UNSPECIFIED SNOMED Code(s): 110695460 (5) Cognitive impairment Current Visit: Yes Status: Acute Code(s): R41.89 - OTH SYMPTOMS AND SIGNS W COGNITIVE FUNCTIONS AND AWARENESS SNOMED Code(s): 740572875 Plan: plan admit patient with full consultation from neurolopatient is appearing more stable this morning Time with Patient: Greater than 30
[2019-06-11] MEDS: FOLIC ACID 1 MG TAB PO SCH (08:17)
[2019-06-11] MEDS: PANTOPRAZOLE 40 MG TABLET PO SCH (08:17)
[2019-06-11] MEDS: ASPIRIN 81 MG PO SCH (08:17)
[2019-06-11] MEDS: TOPIRAMATE 25 MG TAB PO SCH (08:17)
[2019-06-11] MEDS: CALCIUM CARBONATE 500 MG CHEWABLE PO SCH (08:17)
[2019-06-11] MEDS: DICYCLOMINE 10 MG CAP PO SCH ×2 (08:17→13:16)
[2019-06-11] MEDS: BACLOFEN 10 MG TAB PO SCH (08:17)
[2019-06-11] MEDS: GABAPENTIN 100 MG CAP PO SCH (08:17)
[2019-06-11] MEDS: CYANOCOBALAMIN 500 MCG TAB PO SCH (08:17)
[2019-06-11] MEDS: MULTIVITAMINS, THERA 1 EACH TAB PO SCH (08:17)
[2019-06-11] MEDS: VENLAFAXINE HCL ER 150 MG CAP PO SCH (08:19)
--- NOTE | 2019-06-11 12:19 | P.PN ---
Progress Note - Text Progress Note Date: 06/11/19 SUBJECTIVE/INTERVAL EVENTS: No acute overnight events. Pt states she feels better. She was having difficulty with serial 7's yesterday, but today, patient did much better. Discussed with patient about downtitrating her topamax and for the patient to be started on MgOx and Vitamin B2 for migraine prophylaxis. PHYSICAL EXAMINATION: VITAL SIGNS: T 97.8 HR 60 RR 20 BP 132/73 O2 sat 96% on RA GEN.: NAD, pleasant and cooperative HEENT: NCAT, sclera without icterus NECK: Supple, no carotid bruit SKIN AND EXTREMITIES: Warm to touch, no edema NEURO: MENTAL STATUS: Patient alert and oriented to self, place, time. Able to name the current president. Speech fluent, able to name and repeat, following all commands readily. No right and left disorientation, extinction to double simultaneous stimulation, finger agnosia, neglect. CRANIAL NERVES II THROUGH XII: II: Pupils are equal and reactive to light symmetrically. No afferent pupillary defect. Visual [place] are intact. III, IV, : No ptosis. Extraocular movements full. No nystagmus. V: Facial sensation intact from V1-3. VII. No clear facial asymmetry. VIII: Hearing intact to finger rub bilaterally. IX, X: Symmetric palate elevation. XI: Shoulder shrug intact. XII: Tongue midline without fasciculation or atrophy. MOTOR: Normal bulk/tone. No pronator drift or tremor. Strength is 5/5 throughout all 4 extremities. SENSORY: Intact to light touch, temperature, pinprick in all 4 extremities. Romberg is negative. REFLEXES: 2+ throughout. Toes are downgoing. No clonus. Luisana's is absent COORDINATION: Finger to nose and heel to lozano intact. No dysmetria. Rapid alternating movements with good speed and accuracy. GAIT: Narrow-based and stable. Able to toe/heel/tandem walk DIAGNOSTIC TESTING: LABORATORY: WBC 7.3 Hgb 12.4 platelets 365 PT 10.2 INR 0.9 Sodium 142 potassium 4.1 chloride 109 bicarb 22 BUN 17 creatinine 0.98 glucose 110 AST 19 ALT 24 alk phos 122 ammonia <9 troponin <0.012 urinalysis small LE, 12 WBC, few calcium oxalate, 54 hyaline casts, rare mucus TSH 0.031 fT4 1.58 IMAGING: CT head without contrast 06/09/2019: Cerebral atrophy. No acute intracranial abnormality. ASSESSMENT: Ms. Carolina is a 79-year-old woman with past medical history of stroke, GERD, rheumatoid arthritis, restless leg syndrome, pericardial effusion, skin cancer, kidney stones, mild cognitive impairment, presenting to [facility] for altered mental status. Urinalysis with mild leukesterase. Patient since admission has not been treated with antibiotics, but she already is showing improvement in her mentation. Patient is also on Topamax most likely for her headaches, but Topamax could be causing some mental haziness as a side effect. RECOMMENDATIONS: 1. Taper down topamax to 25mg BID for 5 days; then 25mg qday for 5 days then discontinue 2. MgOx 400mg BID and Vitamin B2 (riboflavin) 400mg qday for migraine prophylaxis 3. Neurology follow-up as outpatient within 2-3 weeks of discharge for migraine management 4. Neurology will sign off at this time. If EEG shows any seizure activity, will continue to follow. Please feel free to contact Neurology again if with additional questions or concerns.
[2019-06-11 13:51] VITALS: BP 137/56; PULSE 68; RESP 16; TEMP 98.1
--- NOTE | 2019-06-11 22:49 | P.DS ---
Providers Date of admission: 06/10/19 01:18 Expected date of discharge: 06/11/19 Attending physician: Jh Garcia Consults: 06/10/19 06:08 Consult Physician Urgent Consulting Provider: Sim Reynolds Consult Reason/Comments: confusion Do you want consulting provider notified?: Yes Primary care physician: Jh Garcia - Discharge Diagnosis(es) (1) UTI (urinary tract infection) Status: Acute (2) Abdominal pain Status: Acute (3) Acute kidney injury Status: Acute (4) Altered mental status Status: Acute (5) Cognitive impairment Status: Acute Hospital Course: patient is a pleasant 79-year-old admitted with the above diagnosis she was seen in consultation by neurology Dr. Garcia. Patient's confusion most likely secondary to medication effect due to Topamax and or tramadol for migraine headache. Patient was advised to take B12 supplementation and magnesium for acute migraine. She is to hold off on tramadol and she is to wean Topamax 25 mg twice a day for 5 days then once daily for 5 days then off. Patient was doing well she was eating tolerating diet is ambulating okay her urine was rechecked from previous admission which showed no new growth and was cleared for discharge.grade usual medicine on Kassidy Hayes Patient Condition at Discharge: Fair Plan - Discharge Summary Discharge Rx Participant: No New Discharge Prescriptions: New Topiramate [Topamax] 25 mg PO BID tab Continue Aspirin 81 mg PO DAILY Venlafaxine HCl [Effexor] 150 mg PO DAILY Multivit-Min/FA/Lycopen/Lutein [Centrum Silver Tablet] 1 tab PO DAILY Gabapentin [Neurontin] 100 mg PO TID Certolizumab Pegol [Cimzia] 400 mg SQ Q30D Folic Acid 1 mg PO DAILY rOPINIRole HCL [Requip] 0.5 mg PO HS Methotrexate Sodium [Methotrexate] 20 mg PO FR Dicyclomine [Bentyl] 10 mg PO ACHS Acetaminophen-Codeine 300-30mg [Tylenol w/codeine #3] 1 tab PO DAILY PRN PRN Reason: Headache Baclofen 10 mg PO TID Omeprazole 40 mg PO DAILY Calcium Carbonate 500 mg PO BID Cyanocobalamin (Vitamin B-12) [Vitamin B-12] 5,000 mcg PO DAILY Discontinued [place]-3 Fatty Acids/Fish Oil [Fish Oil 1,000 mg Softgel] 1 cap PO BID Topiramate [Topamax] 50 mg PO BID Discharge Medication List Aspirin 81 mg PO DAILY 06/17/18 [History] Multivit-Min/FA/Lycopen/Lutein [Centrum Silver Tablet] 1 tab PO DAILY 06/17/18 [History] Venlafaxine HCl [Effexor] 150 mg PO DAILY 06/17/18 [History] Certolizumab Pegol [Cimzia] 400 mg SQ Q30D 07/01/18 [History] Folic Acid 1 mg PO DAILY 07/01/18 [History] Gabapentin [Neurontin] 100 mg PO TID 07/01/18 [History] rOPINIRole HCL [Requip] 0.5 mg PO HS 07/01/18 [History] Dicyclomine [Bentyl] 10 mg PO ACHS 10/06/18 [History] Methotrexate Sodium [Methotrexate] 20 mg PO FR 10/06/18 [History] Acetaminophen-Codeine 300-30mg [Tylenol w/codeine #3] 1 tab PO DAILY PRN 12/19/18 [History] Baclofen 10 mg PO TID 12/19/18 [History] Omeprazole 40 mg PO DAILY 12/19/18 [History] Calcium Carbonate 500 mg PO BID 06/09/19 [History] Cyanocobalamin (Vitamin B-12) [Vitamin B-12] 5,000 mcg PO DAILY 06/09/19 [History] Topiramate [Topamax] 25 mg PO BID tab 06/11/19 [Rx] Follow up Appointment(s)/Referral(s): Jh Garcia DO [Primary Care Provider] - 1 Week (Please call office to set up appointment :)) Patient Instructions/Handouts: Urinary Tract Infection in Women (DC), Altered Mental Status (GEN) Discharge Disposition: HOME SELF-CARE Plan of Treatment: Wean Topamax 25mg twice a day for 5 days then daily for 5 days. Then stop the use of Tramadol. Use B12 and Magnesium for headaches.
--- NOTE | 2019-06-11 23:48 | EEG ---
ELECTROENCEPHALOGRAM REPORT PROCEDURE DATE: June 11, 2019. ELECTROENCEPHALOGRAM (EEG) REPORT: TECHNIQUE: A routine 18 channel EEG was performed with video using the 10/20 international placement system. HISTORY: The patient admitted for UTI and sepsis. Patient readmitted for UTI. CURRENT MEDICATIONS: Effexor, Topamax, Requip, Protonix, multivitamin, methotrexate. STUDY DURATION: 25 minutes. FINDINGS: BACKGROUND: The background activity consisted of unsustained 8-9 hertz rhythmic waveforms with some intermixed theta range slowing. ACTIVATION: Hyperventilation: Not performed. Photic stimulation: No driving seen. Sleep: Drowsy. ABNORMALITIES: Occasional runs of frontally predominant delta range slowing were seen. IMPRESSION: Abnormal EEG. The intermittent runs of frontally predominant delta range slowing mentioned above are not epileptiform in nature. These findings indicate mild diffuse cerebral dysfunction as may be seen in a toxic metabolic encephalopathy. No seizures were recorded. No epileptiform activity was present. MMODL / IJN: [id number] / MTDD
[2019-06-13] MEDS ORDERED: METHOTREXATE SODIUM 2.5 MG TAB PO SCH (09:00)
== END 2019-06-11 15:45 | disposition home or self-care (01) ==
LOC: EC 19:27 → 4MS4W 06-10 01:18
PROVIDERS: ADMIT Family Medicine; ATTEND Family Medicine
DX: N39.0 Urinary tract infection, site not specified (principal); N17.9 Acute kidney failure, unspecified; G43.909 Migraine, unspecified, not intractable, without status migrainosus; M06.9 Rheumatoid arthritis, unspecified; K21.9 Gastro-esophageal reflux disease without esophagitis; G25.81 Restless legs syndrome; I31.3 Pericardial effusion (noninflammatory); G31.84 Mild cognitive impairment of uncertain or unknown etiology; M19.90 Unspecified osteoarthritis, unspecified site; N28.9 Disorder of kidney and ureter, unspecified; Z87.442 Personal history of urinary calculi; Z86.73 Personal history of transient ischemic attack (TIA), and cerebral infarction without residual deficits; Z85.828 Personal history of other malignant neoplasm of skin; Z87.01 Personal history of pneumonia (recurrent); Z90.49 Acquired absence of other specified parts of digestive tract; Z79.82 Long term (current) use of aspirin; Z79.899 Other long term (current) drug therapy; Z79.891 Long term (current) use of opiate analgesic; Z88.8 Allergy status to other drugs, medicaments and biological substances; Z88.6 Allergy status to analgesic agent; Z82.49 Family history of ischemic heart disease and other diseases of the circulatory system; Z83.79 Family history of other diseases of the digestive system
CPT/HCPCS: 96361 ×2; 96374; 99285; 36415 ×2; 94760; 95816; 93005; 84439; 80053; 84443; 82607; 82140; 83735; 84100; 84484; 85025; 85610; 85730; 81001; 87040; 71046; 70450; G0378 ×2; J0696

== ENCOUNTER → 2019-10-02 | Outpatient (CLI) | payer MEDICARE ==
--- NOTE | 2019-10-02 13:18 | XR ---
EXAMINATION TYPE: XR Hip Bilateral Complete DATE OF EXAM: 10/02/2019 COMPARISON: NONE HISTORY: Pain TECHNIQUE: 2 views submitted FINDINGS: There is no evidence of erosive change or acute fracture. Calcification the pelvis is likely related uterine fibroids. There is concentric narrowing of the joint space of the hips bilaterally with hyper trophic change of the acetabulum. Hypertrophic change of the greater trochanter noted bilaterally. Va scular phleboliths in the pelvis noted. IMPRESSION: 1. 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
--- NOTE | 2019-10-02 13:21 | XR ---
EXAMINATION TYPE: XR chest 2V DATE OF EXAM: 10/02/2019 COMPARISON: 06/09/2019 TECHNIQUE: PA and lateral views submitted. HISTORY: Shortness of breath FINDINGS: The lungs are clear and there is no pneumothorax, pleural effusion, or focal pneumonia. Atheroscler otic change aorta. Arthropathy of the shoulders. Degenerative change of the spine. No overt failure. IMPRESSION: 1. No acute process.
== END | disposition home or self-care (01) ==
LOC: RADXRMAIN 11:48
PROVIDERS: ATTEND Family Medicine
DX: R06.02 Shortness of breath (principal); R09.89 Other specified symptoms and signs involving the circulatory and respiratory systems; M12.852 Other specific arthropathies, not elsewhere classified, left hip; M12.851 Other specific arthropathies, not elsewhere classified, right hip; M16.0 Bilateral primary osteoarthritis of hip; Z87.39 Personal history of other diseases of the musculoskeletal system and connective tissue
CPT/HCPCS: 71046; 73521

== ENCOUNTER 2019-10-12 15:01 | Inpatient (IN) | payer MEDICARE ==
[2019-10-12] MEDS ORDERED: MAG HYDROX/AL HYDROX/SIMETH 30 ML, HYOSCYAMINE ELIXIR 10 ML, LIDOCAINE VISCOUS 2% 10 ML PO STA ×3 (15:55)
[2019-10-12] MEDS ORDERED: FAMOTIDINE 20 MG/2 ML VIAL IV STA (15:55)
[2019-10-12 16:12] LABS: Albumin 3.3 g/dL (3.5-5.0); Potassium 4.7 mmol/L (3.5-5.1); Total Bilirubin 0.9 mg/dL (0.2-1.3)
[2019-10-12] MEDS ORDERED: SODIUM CHLORIDE 0.9% 500 ML 500 ML IV STA (16:12)
--- NOTE | 2019-10-12 16:15 | ED ---
General Adult HPI - General Chief complaint: Abdominal Pain Stated complaint: Abd pain Time Seen by Provider: 10/12/19 15:36 Source: patient, RN notes reviewed Mode of arrival: ambulatory Limitations: no limitations - History of Present Illness Initial comments: 79-year-old female with a past medical history of cholecystectomy, Joel fundoplication years ago presents to the emergency department for a chief complaint of abdominal pain. Patient states it has been ongoing for about 2 months but has worsened in the past couple weeks. Patient states now it is at the point where it is unbearable. Patient did see her primary care provider about 2 weeks ago who felt gas in her abdomen and started her on MiraLAX. Patient states that she is having normal bowel movements about twice per day. She denies vomiting but does admit to nausea. States she has not had this pain before. States it is in her mid abdomen. Patient is noted to be taking Bentyl but she is unsure of why. Patient has no other complaints at this time including shortness of breath, chest pain, vomiting, headache, or visual changes. - Related Data Home Medications Medication Instructions Recorded Confirmed Aspirin 81 mg PO DAILY 06/17/18 06/09/19 Multivit-Min/FA/Lycopen/Lutein 1 tab PO DAILY 06/17/18 06/09/19 [Centrum Silver Tablet] Venlafaxine HCl [Effexor] 150 mg PO DAILY 06/17/18 06/09/19 Certolizumab Pegol [Cimzia] 400 mg SQ Q30D 07/01/18 06/09/19 Folic Acid 1 mg PO DAILY 07/01/18 06/09/19 Gabapentin [Neurontin] 100 mg PO TID 07/01/18 06/09/19 rOPINIRole HCL [Requip] 0.5 mg PO HS 07/01/18 06/09/19 Dicyclomine [Bentyl] 10 mg PO ACHS 10/06/18 06/09/19 Methotrexate Sodium [Methotrexate] 20 mg PO FR 10/06/18 06/09/19 Acetaminophen-Codeine 300-30mg 1 tab PO DAILY PRN 12/19/18 06/09/19 [Tylenol w/codeine #3] Baclofen 10 mg PO TID 12/19/18 06/09/19 Omeprazole 40 mg PO DAILY 12/19/18 06/09/19 Calcium Carbonate 500 mg PO BID 06/09/19 06/09/19 Cyanocobalamin (Vitamin B-12) 5,000 mcg PO DAILY 06/09/19 06/09/19 [Vitamin B-12] Previous Rx's Medication Instructions Recorded Topiramate [Topamax] 25 mg PO BID tab 06/11/19 Allergies Allergy/AdvReac Type Severity Reaction Status Date / Time etodolac [From Lodine] Allergy Rash/Hives Verified 10/12/19 15:03 nabumetone [From Relafen] Allergy Rash/Hives Verified 10/12/19 15:03 naproxen [From Naprosyn] Allergy Rash/Hives Verified 10/12/19 15:03 NSAIDS (Non-Steroidal Allergy Rash/Hives Verified 10/12/19 15:03 Anti-Inflamma Review of Systems ROS Statement: Those systems with pertinent positive or pertinent negative responses have been documented in the HPI. ROS Other: All systems not noted in ROS Statement are negative. Past Medical History Past Medical History: Cancer, CVA/TIA, GERD/Reflux, Osteoarthritis (OA), Pneumonia, Renal Disease, Rheumatoid Arthritis (RA) Additional Past Medical History / Comment(s): Spouse thinks pt may have the very beginnnings of dementia, arthritis in multiple joints, RLS, UTIs, stress headaches, pericardial effusion, pleurisy, Skin cancer on her nose. Cut on L finger. Kidney stones. History of Any Multi-Drug Resistant Organisms: None Reported Past Surgical History: Cholecystectomy, Joint Replacement, Orthopedic Surgery Additional Past Surgical History / Comment(s): Rotator cuff (R); Ric Knee Replacement; Panniculectomy, bilateral legs varicose vein surgery, colonoscopies-normal, bilateral cataract removal, FNA abdominal seroma, cystoscopy/bladder bx/lithotripsy with R ureteral stent., Past Anesthesia/Blood Transfusion Reactions: No Reported Reaction Additional Past Anesthesia/Blood Transfusion Reaction / Comment(s): Pt has received blood after panniculectomy without reaction. Past Psychological History: No Psychological Hx Reported Smoking Status: Never smoker Past Alcohol Use History: None Reported Past Drug Use History: None Reported - Past Family History Mother Family Medical History: Myocardial Infarction ([place]) Additional Family Medical History / Comment(s): Mother at age 69 yrs after having the flu and complicated by a [place]. Father Additional Family Medical History / Comment(s): IBS. Father at age 78yrs. General Exam Limitations: no limitations General appearance: alert, in no apparent distress Head exam: Present: atraumatic, normocephalic, normal inspection Eye exam: Present: normal appearance, PERRL, EOMI. Absent: scleral icterus, conjunctival injection, periorbital swelling ENT exam: Present: normal exam, mucous membranes moist Neck exam: Present: normal inspection, full ROM. Absent: tenderness, meningismus, lymphadenopathy Respiratory exam: Present: normal lung sounds bilaterally. Absent: respiratory distress, wheezes, rales, rhonchi, stridor Cardiovascular Exam: Present: regular rate, normal rhythm, normal heart sounds. Absent: systolic murmur, diastolic murmur, rubs, gallop, clicks GI/Abdominal exam: Present: soft, tenderness (Epigastric tenderness with voluntary guarding. No lower abdominal tenderness. No right upper quadrant tenderness.), normal bowel sounds. Absent: distended, guarding, rebound, rigid Neurological exam: Present: alert Course Vital Signs 10/12/19 15:03 Temperature 97.9 F Pulse Rate 90 Respiratory 16 Rate Blood Pressure 149/73 O2 Sat by Pulse 96 Oximetry Medical Decision Making - Medical Decision Making ABC and a rectal. CMP does show evidence of dehydration, patient given fluids. Patient also given juice as glucose was 66. Mild transaminitis which appears chronic. Urinalysis unremarkable. CT abdomen and pelvis showed a small hiatal hernia. There is marked pancreatic ductal dilation as well. This was seen on prior exams with no gross evident pancreatic mass seen however recommended MRCP, could be related to main branch IPMN. There is also severe colonic fecal stasis of fluid within the small bowel loops. Patient continues to have abdominal pain. Given finding of ductal dilation and ileus patient will be admitted. She'll be started on magnesium citrate. - Lab Data Result diagrams: 10/12/19 15:42 10/12/19 15:42 Lab Results 10/12/19 10/12/19 10/12/19 Range/Units 15:42 15:42 15:59 WBC 8.1 (3.8-10.6) k/uL RBC 4.11 (3.80-5.40) m/uL Hgb 12.6 (11.4-16.0) gm/dL Hct 40.1 (34.0-46.0) % MCV 97.5 (80.0-100.0) fL MCH 30.7 (25.0-35.0) pg MCHC 31.5 (31.0-37.0) g/dL RDW 14.6 (11.5-15.5) % Plt Count 232 (150-450) k/uL Neutrophils % 79 % Lymphocytes % 13 % Monocytes % 5 % Eosinophils % 1 % Basophils % 0 % Neutrophils # 6.4 (1.3-7.7) k/uL Lymphocytes # 1.1 (1.0-4.8) k/uL Monocytes # 0.4 (0-1.0) k/uL Eosinophils # 0.1 (0-0.7) k/uL Basophils # 0.0 (0-0.2) k/uL Sodium 140 (137-145) mmol/L Potassium 4.7 (3.5-5.1) mmol/L Chloride 111 H (98-107) mmol/L Carbon Dioxide 25 (22-30) mmol/L Anion Gap 4 mmol/L BUN 34 H (7-17) mg/dL Creatinine 0.75 (0.52-1.04) mg/dL Est GFR (CKD-EPI)AfAm 88 (>60 ml/min/1.73 sqM) Est GFR (CKD-EPI)NonAf 77 (>60 ml/min/1.73 sqM) Glucose 66 L (74-99) mg/dL Calcium 9.0 (8.4-10.2) mg/dL Total Bilirubin 0.9 (0.2-1.3) mg/dL AST 46 H (14-36) U/L ALT 65 H (4-34) U/L Alkaline Phosphatase 79 (38-126) U/L Total Protein 6.0 L (6.3-8.2) g/dL Albumin 3.3 L (3.5-5.0) g/dL Amylase 65 (30-110) U/L Lipase 265 (23-300) U/L Urine Color Yellow Urine Appearance Clear (Clear) Urine pH 5.5 (5.0-8.0) Ur Specific [place] 1.027 (1.001-1.035) Urine Protein Trace H (Negative) Urine Glucose (UA) Negative (Negative) Urine Ketones Trace H (Negative) Urine Blood Negative (Negative) Urine Nitrite Negative (Negative) Urine Bilirubin Negative (Negative) Urine Urobilinogen 2.0 (<2.0) mg/dL Ur Leukocyte Esterase Trace H (Negative) Urine RBC 8 H (0-5) /hpf Urine WBC 4 (0-5) /hpf Ur Squamous Epith Cells <1 (0-4) /hpf Calcium Oxalate Crystal Many H (None) /hpf Urine Mucus Rare H (None) /hpf Disposition Clinical Impression: Abdominal pain, Dilated pancreatic duct, Transaminitis Disposition: ADMITTED IP TO THIS HOSP Condition: Fair Is patient prescribed a controlled substance at d/c from ED?: No Referrals: Jh Garcia DO [Primary Care Provider] - 1-2 days Time of Disposition: 18:23
[2019-10-12 16:20] LABS: Basophils % (A) 0 %; Eosinophils # (A) 0.1 k/uL (0-0.7); Eosinophils % (A) 1 %; HCT 40.1 % (34.0-46.0); HGB 12.6 gm/dL (11.4-16.0); Lymphocytes # (A) 1.1 k/uL (1.0-4.8); Lymphocytes % (A) 13 %; MCH 30.7 pg (25.0-35.0); MCHC 31.5 g/dL (31.0-37.0); MCV 97.5 fL (80.0-100.0); Mean Platelet Volume 7.2; Monocytes # (A) 0.4 k/uL (0-1.0); Monocytes % (A) 5 %; Neutrophils # (A) 6.4 k/uL (1.3-7.7); Neutrophils % (A) 79 %; Platelet Count 232 k/uL (150-450); RBC 4.11 m/uL (3.80-5.40); RDW 14.6 % (11.5-15.5); WBC 8.1 k/uL (3.8-10.6)
[2019-10-12 16:39] LABS: Appearance,Urine Clear (Clear); Bilirubin,Urine Negative (Negative); Blood,Urine Negative (Negative); Calcium Oxalate Crystals,Urine Many /hpf; Color,Urine Yellow; Glucose,Urine (UA) Negative (Negative); Ketones,Urine Trace (Negative); Leukocyte Esterase,Urine Trace (Negative); Mucus,Urine Rare /hpf; Nitrite,Urine Negative (Negative); PH, Urine 5.5 (5.0-8.0); Protein,Urine Trace (Negative); RBC,Urine 8 /hpf (0-5); Specific Gravity,Urine 1.027 (1.001-1.035); Squamous Epithelial Cell,Urine <1 /hpf (0-4); WBC,Urine 4 /hpf (0-5)
--- NOTE | 2019-10-12 17:46 | CT ---
EXAMINATION TYPE: CT abdomen pelvis w con DATE OF EXAM: 10/12/2019 HISTORY: Abdomen pain. Hx renal disease CT DLP: 1002.6mGycm Automated Exposure Control for Dose Reduction was Utilized. CONTRAST: CT scan of the abdomen and pelvis is performed with IV Contrast, patient injected with 100 mL of Isov ue 300. COMPARISON: 05/26/2019 FINDINGS: Lack of intravenous and oral contrast limit evaluation of both the hollow and solid viscera . LUNG BASES: No significant abnormality is appreciated. LIVER/GB: There is redemonstration of a left hepatic lobe cyst, marked extrahepatic biliary ductal di latation, and main pancreatic ductal dilatation. No discrete mass is seen. PANCREAS: Severe main pancreatic ductal dilatation up to 1.6 cm.. SPLEEN: No significant abnormality is seen. ADRENALS: No significant abnormality is seen. KIDNEYS: There are numerous nonobstructing bilateral renal calculi. The largest is seen on the left m easuring 8 mm in the lower pole. No hydronephrosis of either kidney. BOWEL: There is a small hiatal hernia, appearing paraesophageal. Small bowel is fluid-filled but nond ilated. Severe degree colonic fecal stasis. UTERUS/ADNEXA: Atrophic calcified uterine leiomyoma. LYMPH NODES: Suboptimal evaluation without intravenous or oral contrast. No gross evidence of patholo gic adenopathy. OSSEOUS STRUCTURES: There is minimal retrolisthesis of L2 on L3 and greater retrolisthesis of L3 on L 4. Moderate multilevel degenerative change of the spine IMPRESSION: 1. Small hiatal hernia appears paraesophageal. 2. Marked main pancreatic ductal dilatation. Given this was seen on prior exams and no gross evidence of pancreatic mass is seen, findings may be on the basis of main branch IPMN and could be evaluated with MRCP. 3. Numerous nonobstructing bilateral renal calculi. 4. Severe colonic fecal stasis and fluid within the small bowel loops suggesting ileus.
[2019-10-12] MEDS ORDERED: NALOXONE 0.4 MG/ML 1 ML VIAL IV PRN (18:21)
[2019-10-12] MEDS ORDERED: ACETAMINOPHEN TAB 325 MG TAB PO PRN (18:21)
[2019-10-12] MEDS ORDERED: ONDANSETRON 4 MG/2 ML VIAL IVP PRN (18:21)
[2019-10-12] MEDS ORDERED: HYDROmorphone 0.5 MG/0.5 ML SYRINGE IVP PRN (18:21)
[2019-10-12] MEDS ORDERED: MAGNESIUM CITRATE 296 ML BOTTLE PO STA (18:22)
[2019-10-12] MEDS: SODIUM CHLORIDE 0.9% 1,000 ML IV SCH (18:57)
[2019-10-12 19:59] LABS: Glucose,Whole Blood 129 mg/dL (75-99)
[2019-10-12] MEDS ORDERED: BACLOFEN 10 MG TAB PO PRN (20:05)
[2019-10-12] MEDS ORDERED: NON FORMULARY DRUG (Certolizumab Pegol [Cimzia] 400 MG) SQ SCH (20:15)
[2019-10-12] MEDS: MAGNESIUM OXIDE 400 MG TAB PO SCH (22:32)
[2019-10-12] MEDS: CALCIUM CARBONATE 500 MG CHEWABLE PO SCH (22:33)
[2019-10-12] MEDS: ATORVASTATIN 40 MG TAB PO SCH (22:33)
[2019-10-12] MEDS: DICYCLOMINE 10 MG CAP PO SCH (22:33)
[2019-10-13] MEDS: VENLAFAXINE HCL ER 150 MG CAP PO SCH (08:49)
[2019-10-13] MEDS: DICYCLOMINE 10 MG CAP PO SCH ×4 (08:49→20:52)
[2019-10-13] MEDS: MAGNESIUM OXIDE 400 MG TAB PO SCH ×2 (08:49→20:52)
[2019-10-13] MEDS: GABAPENTIN 100 MG CAP PO SCH ×3 (08:49→17:34)
[2019-10-13] MEDS: MULTIVITAMINS, THERA 1 EACH TAB PO SCH (08:49)
[2019-10-13] MEDS: CYANOCOBALAMIN 500 MCG TAB PO SCH (08:49)
[2019-10-13] MEDS: ASPIRIN 81 MG PO SCH (08:49)
[2019-10-13] MEDS: PANTOPRAZOLE 40 MG TABLET PO SCH (08:49)
[2019-10-13] MEDS: CALCIUM CARBONATE 500 MG CHEWABLE PO SCH ×2 (08:50→20:51)
[2019-10-13] MEDS ORDERED: NON FORMULARY DRUG (Omega-3 Fatty Acids/Fish Oil [Fish Oil 1,000 Mg Softgel] 1 CAP) PO SCH (09:00)
[2019-10-13] MEDS: SODIUM CHLORIDE 0.9% 1,000 ML IV SCH ×2 (18:53→20:53)
--- NOTE | 2019-10-13 18:56 | CONS ---
CONSULTATION DATE OF DICTATION: October 13, 2019. REQUESTING PHYSICIAN: Dr. Jh Garcia. REASON FOR CONSULTATION: Abdominal pain. HISTORY OF PRESENT ILLNESS: The patient is a 79 -year-old pleasant white female with history of chronic constipation who is maintained on MiraLAX on an outpatient basis, was admitted to the hospital because of complaining of severe abdominal pain mostly in the lower abdominal area on and off for the last 2 months duration. However, her symptoms got much worse 2 days ago and the pain was mostly in the left lower quadrant area and occasionally in the right lower quadrant with no radiation, associated with some nausea but no emesis. No fever, chills, or night sweats. The pain became unbearable, so she came into the emergency room and had a CT of the abdomen and pelvis done in the ER that revealed evidence of numerous nonobstructing renal calculi. Small hiatal hernia. Marked main pancreatic ductal dilation, which was also noted on prior examinations on CT scans in 2015 and 2016 and severe colonic fecal stasis with fluid within the small bowel loops suggestive of ileus. The patient was given magnesium citrate last night and she had several bowel movements this morning. The abdominal pain has significantly improved. In fact, abdominal pain has resolved. She reports no nausea, vomiting. No weight loss. No fever, chills, night sweats. PAST MEDICAL HISTORY: Significant for hypertension, hyperlipidemia, gastroesophageal reflux disease, anxiety, depression, history of rheumatoid arthritis. PAST SURGICAL HISTORY: Cholecystectomy, bilateral knee replacement, colonoscopy in April of 2018 that was unremarkable. Bilateral cataract surgery, cystoscopy with bladder biopsy, lithotripsy with right ureteral stent placement. FAMILY HISTORY: Mother coronary artery disease and [place]. Father had IBS. MEDICATIONS: At home include aspirin, multivitamins, Effexor, Cimzia, methotrexate, folic acid, Neurontin, Requip, Bentyl, Tylenol #3, baclofen, omeprazole, calcium carbonate and vitamin B12. ALLERGIES: TO LODINE, RELAFEN, NAPROXEN. REVIEW OF SYSTEMS: CARDIOPULMONARY: No chest pain, shortness of breath. GENITOURINARY: No dysuria or hematuria. MUSCULOSKELETAL: Pain from arthritis. NEUROLOGY unremarkable. PSYCHIATRIC unremarkable. ENT/vision unremarkable. CONSTITUTIONAL: No recent weight loss. No fever, chills, night sweats. HEMATOLOGY unremarkable. GI as mentioned above. PHYSICAL EXAMINATION: She appears comfortable. No apparent distress. VITAL SIGNS: Stable. Blood pressure is 185/77, pulse 61, temperature 98. HEENT examination unremarkable. Conjunctivae pink. Sclerae anicteric. Oral cavity no lesions. NECK: No JVD or lymph node enlargement. CHEST was clear to auscultation. HEART: Regular rate and rhythm. ABDOMEN: Soft. Bowel sounds are positive. There was very minimal tenderness in the left lower quadrant area but it was very soft. No organomegaly. EXTREMITIES: No pedal edema. SKIN no rashes. NEUROLOGIC: Alert and oriented x3. No focal deficits. LABS: Done at the time of admission to the hospital: WBC 8.1, hemoglobin 12.6, platelets normal. Basic metabolic panel is within normal limits. AST is 46, ALT is 65, T- bilirubin and alkaline phosphatase are within normal limits. IMPRESSION: 1. Acute onset of lower abdominal pain for the last 2 days duration. The patient has been having intermittent cramping lower abdominal pain on and off for the last several months and has history of chronic constipation. She was started on MiraLAX 1 scoop twice daily about 2 weeks ago and symptoms are gradually improving, but because of the abdominal pain, she was admitted to the hospital. CT of the abdomen showed fecal stasis. The patient was given magnesium citrate last night and had several bowel movements this morning and abdominal pain has significantly improved. Probably symptoms are related to chronic constipation. 2. Dilated pancreatic duct noted on a CT scan of the abdomen. On review of her records from previous CAT scans during prior hospitalizations in 2017 and 2018, the pancreatic duct still appeared dilated at that time, but possibility of IPMN has to be excluded. 3. Minimal elevation of serum transaminases. 4. History of hypertension. 5. History of rheumatoid arthritis, maintained on Cimzia and Methotrexate. RECOMMENDATIONS: 1. Continue with osmotic laxatives, MiraLAX 1 scoop twice daily. 2. We will obtain MRCP and MRI of the pancreas to evaluate the pancreatic ductal dilation. 3. Advance diet as tolerated. 4. No plans on any endoscopy intervention at the present time. 5. We will follow with you closely. Thank you for this consultation. LESLY / LIZZIE: [id number] /
[2019-10-13] MEDS: ATORVASTATIN 40 MG TAB PO SCH (20:52)
[2019-10-13] MEDS: GABAPENTIN 300 MG CAP PO SCH (20:53)
--- NOTE | 2019-10-13 21:37 | P.HPIM ---
History of Present Illness H&P Date: 10/13/19 This is 79-year-old white female who was admitted to the emergency department with several day history of abdominal pain and constipation. She's been having problems with chronic constipation on and off for the past 2 years seemed to have gotten worse over the past few weeks she was placed on some MiraLAX last few days through the office. She had some magnesium citrate over the evening and she has had relief with some bowel movements and she feels pretty good this morning however the CAT scan showed a dilated pancreatic duct which has been seen without masses of the pancreas. She denies any nausea vomiting she denies any weight loss she denies any yellow jaundice. Review of Systems GENERAL: Patient denies fever. Denies chills. EYES: Denies blurred vision. Denies vision changes. Denies eye pain. EARS, NOSE, MOUTH, & THROAT: Denies headache. Denies sore throat. Denies ear pain. RESPIRATORY: Denies cough. Denies shortness of breath. Denies sputum production. Denies hemoptysis. CARDIOVASCULAR: Denies chest pain or pressure. Denies palpitations. Denies arrhythmias. GASTROINTESTINAL: abdominal pain. Denies diarrhea. constipation. Denies nause a. Denies vomiting. Denies heartburn. Denies blood in the stool. GENITOURINARY: Denies urinary frequency. Denies burning. Denies dysuria. Denies cloudy urine. Denies blood in the urine. MUSCULOSKELETAL: Denies myalgias. Denies joint swelling. Denies decreased range of motion beyond patients baseline. INTEGUMENTARY: Denies pruitis. Denies rash. PSYCHIATRIC: Denies suicidal or homicial ideations. ENDOCRINE: Denies weight change. Denies polydipsia. Denies polyuria. HEMATOLOGIC: Denies bleeding disorders. Past Medical History Past Medical History: Cancer, CVA/TIA, GERD/Reflux, Osteoarthritis (OA), Pneumonia, Renal Disease, Rheumatoid Arthritis (RA) Additional Past Medical History / Comment(s): Spouse thinks pt may have the very beginnnings of dementia, arthritis in multiple joints, RLS, UTIs, stress headaches, pericardial effusion, pleurisy, Skin cancer on her nose. Cut on L finger. Kidney stones. History of Any Multi-Drug Resistant Organisms: None Reported Past Surgical History: Cholecystectomy, Joint Replacement, Orthopedic Surgery Additional Past Surgical History / Comment(s): Rotator cuff (R); Ric Knee Replacement; Panniculectomy, bilateral legs varicose vein surgery, colonoscopies-normal, bilateral cataract removal, FNA abdominal seroma, cystoscopy/bladder bx/lithotripsy with R ureteral stent., Past Anesthesia/Blood Transfusion Reactions: No Reported Reaction Additional Past Anesthesia/Blood Transfusion Reaction / Comment(s): Pt has received blood after panniculectomy without reaction. Past Psychological History: No Psychological Hx Reported Smoking Status: Never smoker Past Alcohol Use History: None Reported Past Drug Use History: None Reported - Past Family History Mother Family Medical History: Myocardial Infarction ([place]) Additional Family Medical History / Comment(s): Mother at age 69 yrs after having the flu and complicated by a [place]. Father Additional Family Medical History / Comment(s): IBS. Father at age 78yrs. Medications and Allergies Home Medications Medication Instructions Recorded Confirmed Type Aspirin 81 mg PO DAILY 06/17/18 10/12/19 History Multivit-Min/FA/Lycopen/Lutein 1 tab PO DAILY 06/17/18 10/12/19 History [Centrum Silver Tablet] Venlafaxine HCl [Effexor] 150 mg PO DAILY 06/17/18 10/12/19 History Certolizumab Pegol [Cimzia] 400 mg SQ Q30D 07/01/18 10/12/19 History Folic Acid 1 mg PO Q48H 07/01/18 10/12/19 History Gabapentin [Neurontin] 100 mg PO TID 07/01/18 10/12/19 History rOPINIRole HCL [Requip] 0.5 mg PO BID 07/01/18 10/12/19 History Dicyclomine [Bentyl] 10 mg PO ACHS 10/06/18 10/12/19 History Methotrexate Sodium [Methotrexate] 20 mg PO FR 10/06/18 10/12/19 History Baclofen 10 mg PO TID PRN 12/19/18 10/12/19 History Omeprazole 40 mg PO DAILY 12/19/18 10/12/19 History Calcium Carbonate 500 mg PO BID 06/09/19 10/12/19 History Cyanocobalamin (Vitamin B-12) 5,000 mcg PO DAILY 06/09/19 10/12/19 History [Vitamin B-12] Atorvastatin Calcium [Lipitor] 40 mg PO HS 10/12/19 10/12/19 History Gabapentin [Neurontin] 300 mg PO HS 10/12/19 10/12/19 History Magnesium Citrate 125 mg PO BID 10/12/19 10/12/19 History [place]-3 Fatty Acids/Fish Oil [Fish 1 cap PO BID 10/12/19 10/12/19 History Oil 1,000 mg Softgel] Allergies Allergy/AdvReac Type Severity Reaction Status Date / Time etodolac [From Lodine] Allergy Rash/Hives Verified 10/12/19 15:03 nabumetone [From Relafen] Allergy Rash/Hives Verified 10/12/19 15:03 naproxen [From Naprosyn] Allergy Rash/Hives Verified 10/12/19 15:03 NSAIDS (Non-Steroidal Allergy Rash/Hives Verified 10/12/19 15:03 Anti-Inflamma Physical Exam Osteopathic Statement: *. No significant issues noted on an osteopathic structural exam other than those noted in the History and Physical/Consult. Vitals: Vital Signs Temp Pulse Resp BP Pulse Ox 10/13/19 19:15 98.3 F 71 17 155/73 98 10/13/19 15:00 98.3 F 70 12 138/72 97 10/13/19 08:00 61 16 10/13/19 07:00 98 F 61 16 169/84 95 10/13/19 05:17 185/77 10/13/19 04:49 182/72 10/13/19 04:09 181/71 10/13/19 04:08 178/71 10/13/19 03:28 199/80 10/13/19 02:06 98.2 F 75 12 182/76 98 Intake and Output 10/13/19 10/13/19 10/13/19 06:59 14:59 22:59 Other: Voiding Method Toilet Toilet # Voids 1 2 GENERAL: This is a -79 year-old in no apparent distress at the time of examination. Pleasant and cooperative. HEENT: Head is atraumatic, normocephalic. Pupils are equal, round, and reactive to light. Sclerae anicteric. Conjunctivae are clear. Mucus membranes of the m outh are moist. Neck is supple. RESPIRATORY: Clear to auscultation. No wheezes, rales, or rhonchi. No use of accessory muscles. Patient maintaining oxygen saturation greater than 92%. No chest wall tenderness is noted on palpation or with deep breathing. CARDIOVASCULAR: Regular rate and rhythm. S1 and S2 noted. No systolic or diastolic murmur auscultated. No JVD noted. No S3 or S4 noted. GASTROINTESTINAL: No distention noted. Abdomen soft and round. Normal active bowel sounds auscultated x 4 quadrants. No pain or tenderness noted upon palpation. INTEGUMENTARY: No cyanosis. No jaundice. No rashes noted. No cellulitis noted. EXTREMITIES: 2+ peripheral pulses. No evidence of peripheral edema. No calf tenderness noted. NEUROLOGIC: Cranial nerves II-XII intact. PSYCHIATRIC: Awake, alert, and oriented X 3. Appropriate affect. Intact judgement and insight. Results CBC & Chem 7: 10/12/19 15:42 10/12/19 15:42 Thrombosis Risk Factor Assmnt - Choose All That Apply Each Factor Represents 1 point: Obesity (BMI >25), Varicose veins Each Risk Factor Represents 3 Points: Age 75 years or older Thrombosis Risk Factor Assessment Total Risk Factor Score: 5 Thrombosis Risk Factor Assessment Level: High Risk Assessment and Plan (1) Abdominal pain Current Visit: Yes Status: Acute Code(s): R10.9 - UNSPECIFIED ABDOMINAL PAIN SNOMED Code(s): 58613955 (2) Dilated pancreatic duct Current Visit: Yes Status: Acute Code(s): K86.89 - OTHER SPECIFIED DISEASES OF PANCREAS SNOMED Code(s): 085876531 (3) Ileus Current Visit: Yes Status: Acute Code(s): K56.7 - ILEUS, UNSPECIFIED SNOMED Code(s): 330575378 (4) Transaminitis Current Visit: Yes Status: Acute Code(s): R74.0 - NONSPEC ELEV OF LEVELS OF TRANSAMNS & LACTIC ACID DEHYDRGNSE SNOMED Code(s): 564962542 (5) Acute kidney injury Current Visit: No Status: Acute Code(s): N17.9 - ACUTE KIDNEY FAILURE, UNSPECIFIED SNOMED Code(s): 88190877 Plan: Admit patient with GI consultation to evaluate dilated pancreatic duct. Chronic constipation seems to be at least relieved temporarily with use of MiraLAX and mag citrate continue to monitor labs further results pending and MRCP . Time with Patient: Greater than 30
[2019-10-14] MEDS ORDERED: FOLIC ACID 1 MG TAB PO SCH (09:00)
[2019-10-14] MEDS: DICYCLOMINE 10 MG CAP PO SCH ×4 (10:31→21:45)
[2019-10-14] MEDS: CALCIUM CARBONATE 500 MG CHEWABLE PO SCH ×2 (10:31→21:46)
[2019-10-14] MEDS: MULTIVITAMINS, THERA 1 EACH TAB PO SCH (10:31)
[2019-10-14] MEDS: CYANOCOBALAMIN 500 MCG TAB PO SCH (10:31)
[2019-10-14] MEDS: MAGNESIUM OXIDE 400 MG TAB PO SCH ×2 (10:31→21:45)
[2019-10-14] MEDS: ASPIRIN 81 MG PO SCH (10:31)
[2019-10-14] MEDS: PANTOPRAZOLE 40 MG TABLET PO SCH (10:31)
[2019-10-14] MEDS: POLYETHYLENE GLYCOL 3350 17 GM POWD.PACK PO SCH (10:31)
[2019-10-14] MEDS: GABAPENTIN 100 MG CAP PO SCH ×3 (10:31→16:37)
[2019-10-14] MEDS: VENLAFAXINE HCL ER 150 MG CAP PO SCH (10:32)
--- NOTE | 2019-10-14 14:36 | MR ---
EXAMINATION TYPE: MR pancreas / mrcp wo/w con DATE OF EXAM: 10/14/2019 COMPARISON: CT abdomen and pelvis October 12, 2019 and older CTs back through at least January 05, 2015 HISTORY: abdominal pain/dilated CBD CONTRAST: Standard multiplanar, multisequence MRI departmental protocol utilizing 7.5 mL intravenous Gadavist g adolinium contrast. Imaging performed of the abdomen focusing on the pancreas. Thin and thick slice MRCP imaging is performed. FINDINGS: Liver/gallbladder/pancreas/biliary system: Liver remains normal in size. Gallbladder noted surgically absent. Persistent thin-walled 1.1 cm cyst left hepatic lobe axial image 23 series 501. There is red emonstration of mild central intrahepatic and extra hepatic biliary dilatation up to 12 mm coronal im age 18 correlating with MRCP imaging, this is not significantly changed back to 2015 CT coronal image s 37. Over contiguous with the pancreatic duct there is no loculated pancreatic ductal dilatation see n best on axial image 21 series 501 the continuity, area of concern measures roughly 1.7 cm craniocau fernando diameter coronal image 15 by nearly 4 cm transversely by 1.6 cm AP diameter. Dynamic postcontrast images show no suspicious enhancement. In retrospect this area has been present on a few prior CTs b ut is increasing in size more recently and ductal continuity is more concerning. Other: Small hiatal hernia is redemonstrated. Spleen and both adrenal glands are normal in size. Occa sional tiny punctate thin-walled cysts scattered throughout the left kidney. No hydronephrosis bilate rally. No suspicious bowel dilatation. Patient has little intra-abdominal fat. Visualized osseous str uctures are grossly intact. IMPRESSION: Stable mild central intrahepatic and extra hepatic biliary dilatation presumed benign unc hanged back to 2015 CT. Increasing focal cystic dilatation central pancreatic body noted in continuit y with the main pancreatic duct, main branch IPMN the to be strongly considered. Advise dedicated burrell creatic specialist surgical referral for further evaluate.
[2019-10-14] MEDS: SODIUM CHLORIDE 0.9% 1,000 ML IV SCH (17:27)
--- NOTE | 2019-10-14 17:31 | PN ---
PROGRESS NOTE DATE OF DICTATION: 10/14/2019 This patient is a 79-year-old pleasant white female admitted to the hospital with lower abdominal pain and constipation for the last few weeks' duration. The patient is presently receiving MiraLAX and her symptoms are gradually improving. She had a CT of the abdomen and pelvis done at the time of admission to the hospital that showed abnormality in the pancreatic duct and possibility of IPMN could not be excluded. Hence she underwent an MRI of the pancreas to evaluate this further. MRI of the pancreas revealed mild central intra- and extrahepatic biliary ductal dilation that seems to be unchanged from the CT scan from 2015. However, there was increasing focal cystic dilation in the central pancreatic body, and possibility of main duct IPMN was thought to be a strong consideration. No pancreatic mass identified. PHYSICAL EXAMINATION: She appears comfortable. No apparent distress. Vital signs are stable. Blood pressure 143/69, pulse rate 77, temperature 97.7. HEENT examination unremarkable. Conjunctivae pink. Sclerae anicteric. Oral cavity no lesions. NECK: No JVD or lymph node enlargement. CHEST: Clear to auscultation. HEART: Regular rate and rhythm. ABDOMEN: Soft. There was minimal tenderness in the periumbilical area. Rest of the abdomen was benign. Bowel sounds are positive. No organomegaly. EXTREMITIES: No pedal edema. SKIN: No rashes. NEUROLOGIC: Alert and oriented x3. No focal deficits. LABS: No labs available from today. IMPRESSION: 1. Abdominal pain/chronic constipation, gradually improving. 2. Abnormality on the CT of the abdomen that showed dilated pancreatic duct. MRI of the pancreas was done that showed focal dilation of the main pancreatic duct in the body of the pancreas suspicious for IPMN. RECOMMENDATIONS: I discussed with the patient as well as her , who was at the bedside, the results of the MRI of the pancreas. At this time we will consider scheduling her for an EUS of the pancreas on an outpatient basis to investigate this further. In the meantime, she will continue with MiraLAX 1 scoop twice daily and she can be discharged home tomorrow with outpatient followup in a week. Thank you for this consultation. MMODL / IJN: [id number] /
--- NOTE | 2019-10-14 21:42 | P.PN ---
Subjective Progress Note Date: 10/14/19 This pleasant 79-year-old white female who is feeling a little bit better today awaiting recommendations by GI has had multiple bowel movements since admission. Objective - Vital Signs Vital signs: Vital Signs Temp 97.7 F 10/14/19 15:00 Pulse 77 10/14/19 15:00 Resp 16 10/14/19 16:00 BP 143/69 10/14/19 15:00 Pulse Ox 97 10/14/19 15:00 Intake & Output 10/14/19 10/14/19 10/15/19 06:59 18:59 06:59 Other: Voiding Method Toilet Toilet # Voids 2 - Exam GENERAL: This is a -79 year-old in no apparent distress at the time of examination. Pleasant and cooperative. HEENT: Head is atraumatic, normocephalic. Pupils are equal, round, and reactive to light. Sclerae anicteric. Conjunctivae are clear. Mucus membranes of the mouth are moist. Neck is supple. RESPIRATORY: Clear to auscultation. No wheezes, rales, or rhonchi. No use of accessory muscles. Patient maintaining oxygen saturation greater than 92%. No chest wall tenderness is noted on palpation or with deep breathing. CARDIOVASCULAR: Regular rate and rhythm. S1 and S2 noted. No systolic or diastolic murmur auscultated. No JVD noted. No S3 or S4 noted. GASTROINTESTINAL: No distention noted. Abdomen soft and round. Normal active bowel sounds auscultated x 4 quadrants. No pain or tenderness noted upon palpation. INTEGUMENTARY: No cyanosis. No jaundice. No rashes noted. No cellulitis noted. EXTREMITIES: 2+ peripheral pulses. No evidence of peripheral edema. No calf ten derness noted. NEUROLOGIC: Cranial nerves II-XII intact. PSYCHIATRIC: Awake, alert, and oriented X 3. Appropriate affect. Intact judgement and insight. - Labs CBC & Chem 7: 10/12/19 15:42 10/12/19 15:42 Assessment and Plan (1) Abdominal pain Current Visit: Yes Status: Acute Code(s): R10.9 - UNSPECIFIED ABDOMINAL PAIN SNOMED Code(s): 60642994 (2) Dilated pancreatic duct Current Visit: Yes Status: Acute Code(s): K86.89 - OTHER SPECIFIED DISEASES OF PANCREAS SNOMED Code(s): 279274667 (3) Ileus Current Visit: Yes Status: Acute Code(s): K56.7 - ILEUS, UNSPECIFIED SNOMED Code(s): 647733084 (4) Transaminitis Current Visit: Yes Status: Acute Code(s): R74.0 - NONSPEC ELEV OF LEVELS OF TRANSAMNS & LACTIC ACID DEHYDRGNSE SNOMED Code(s): 687055385 (5) Acute kidney injury Current Visit: No Status: Acute Code(s): N17.9 - ACUTE KIDNEY FAILURE, UNSPECIFIED SNOMED Code(s): 97412002 Plan: Continue to wait for MRCP today and further recommendations regarding dilated common bile duct. Of note patient's constipation is better and she is feeling
[2019-10-14] MEDS: ATORVASTATIN 40 MG TAB PO SCH (21:45)
[2019-10-14] MEDS: GABAPENTIN 300 MG CAP PO SCH (21:46)
[2019-10-15] MEDS: SODIUM CHLORIDE 0.9% 1,000 ML IV SCH (01:39)
[2019-10-15 07:07] VITALS: BP 177/74; PULSE 64; RESP 16; TEMP 97.5
[2019-10-15] MEDS: ASPIRIN 81 MG PO SCH (07:12)
[2019-10-15] MEDS: CYANOCOBALAMIN 500 MCG TAB PO SCH (07:12)
[2019-10-15] MEDS: MAGNESIUM OXIDE 400 MG TAB PO SCH (07:12)
[2019-10-15] MEDS: CALCIUM CARBONATE 500 MG CHEWABLE PO SCH (07:12)
[2019-10-15] MEDS: PANTOPRAZOLE 40 MG TABLET PO SCH (07:12)
[2019-10-15] MEDS: GABAPENTIN 100 MG CAP PO SCH (07:12)
[2019-10-15] MEDS: DICYCLOMINE 10 MG CAP PO SCH (07:12)
[2019-10-15] MEDS: MULTIVITAMINS, THERA 1 EACH TAB PO SCH (07:13)
[2019-10-15] MEDS: VENLAFAXINE HCL ER 150 MG CAP PO SCH (07:13)
[2019-10-15] MEDS: POLYETHYLENE GLYCOL 3350 17 GM POWD.PACK PO SCH (07:13)
--- NOTE | 2019-10-15 10:10 | PN ---
PROGRESS NOTE DATE OF DICTATION: 10/15/2019 Patient is a 79-year-old pleasant white female admitted to the hospital with abdominal pain and constipation. She is feeling much better. Her symptoms have improved. She remains on MiraLAX 1 scoop daily, had 2 bowel movements yesterday. She did have an MRCP done that showed some focal dilation of the pancreatic duct in the mid body of the stomach suspicious for IPMN. The patient is doing well. PHYSICAL EXAMINATION: On physical examination, appears comfortable, no apparent distress. Vital signs are stable. Blood pressure 177/74, pulse 64, temperature 97.5. HEENT EXAMINATION: Unremarkable. Conjunctivae pink. Sclerae anicteric. Oral cavity no lesions. NECK: No JVD or lymph node enlargement. CHEST: Clear to auscultation. HEART: Regular rate and rhythm. ABDOMEN: Soft. It was nontender, nondistended. Bowel sounds are positive. No organomegaly. EXTREMITIES: No pedal edema. SKIN: No rashes. NEURO: Alert and oriented x3. No focal deficits. LABS: No labs available from today. IMPRESSION: 1. Abdominal pain and chronic constipation, gradually improving. Remains on osmotic laxative. 2. Incidental finding of abnormal pancreatic ductal dilation noted in the mid body of the pancreas suspicious for IPMN. RECOMMENDATION: The patient can be discharged home today. She was advised to continue with MiraLAX one scoop daily or twice daily based on her symptoms. She will be seen in the office in 2 weeks from now and will consider scheduling her for an pancreas on outpatient basis. Thank you for this consultation. MMODL / IJN: [id number] /
--- NOTE | 2019-10-15 15:35 | P.DS ---
Providers Date of admission: 10/12/19 18:49 Expected date of discharge: 10/15/19 Attending physician: Jh Garcia Consults: 10/12/19 18:21 Consult Physician Routine Consulting Provider: Suzy Soto Consult Reason/Comments: dilated pancreatic duct, abdominal pain Do you want consulting provider notified?: Yes Primary care physician: Jh Garcia [place] [facility] Course: FInal DIagnoses: (1) Abdominal pain Current Visit: Yes Status: Acute Code(s): R10.9 - UNSPECIFIED ABDOMINAL PAIN SNOMED Code(s): 82100309 (2) Dilated pancreatic duct Current Visit: Yes Status: Acute Code(s): K86.89 - OTHER SPECIFIED DISEASES OF PANCREAS SNOMED Code(s): 869233098 (3) Ileus Current Visit: Yes Status: Acute Code(s): K56.7 - ILEUS, UNSPECIFIED SNOMED Code(s): 187740522 (4) Transaminitis Current Visit: Yes Status: Acute Code(s): R74.0 - NONSPEC ELEV OF LEVELS OF TRANSAMNS & LACTIC ACID DEHYDRGNSE SNOMED Code(s): 700066213 (5) Acute kidney injury Current Visit: No Status: Acute Code(s): N17.9 - ACUTE KIDNEY FAILURE, UNSPECIFIED SNOMED Code(s): 88819837 Hospital course:This is 79-year-old white female who was admitted to the emergency department with several day history of abdominal pain and constipation. She's been having problems with chronic constipation on and off for the past 2 years seemed to have gotten worse over the past few weeks she was placed on some MiraLAX last few days through the office. She had some magnesium citrate over the evening and she has had relief with some bowel movements and she feels pretty good this morning however the CAT scan showed a dilated pancreatic duct which has been seen without masses of the pancreas. She denies any nausea vomiting she denies any weight loss she denies any yellow jaundice. Evaluated by GI. Underwent MRCP reporting focal dilation of the pancreatic duct in the mid body of the stomach. Tolerated procedure well. Significant clinical improvement. Cleared by GI for discharge. Patient is being scheduled for OP EUS of the pancreas by GI. Patient is being discharged home in a stable condition with guarded prognosis. - Exam GENERAL: Alert and oriented 3, no acute distress. RESPIRATORY: Clear to auscultation. No wheezes, rales, or rhonchi. No use of accessory muscles. CARDIOVASCULAR: Regular rate and rhythm. S1 and S2 noted. No systolic or di astolic murmur auscultated. GASTROINTESTINAL: No distention noted. Abdomen soft and round. Normal active bowel sounds auscultated x 4 quadrants. No pain or tenderness noted upon palpation. NEUROLOGIC: Cranial nerves II-XII intact. The impression and plan of care has been dictated as directed. : I performed a history and examination of this patient, discussed the same with the dictator. I agree with the dictator's note ,documented as a scribe. Any additional findings or plans will be noted. Patient Condition at Discharge: Stable Plan - Discharge Summary New Discharge Prescriptions: New Polyethylene Glycol 3350 [Miralax] 17 gm PO BID powd.pack Continue Aspirin 81 mg PO DAILY Venlafaxine HCl [Effexor] 150 mg PO DAILY Multivit-Min/FA/Lycopen/Lutein [Centrum Silver Tablet] 1 tab PO DAILY Gabapentin [Neurontin] 100 mg PO TID Certolizumab Pegol [Cimzia] 400 mg SQ Q30D Folic Acid 1 mg PO Q48H rOPINIRole HCL [Requip] 0.5 mg PO BID Methotrexate Sodium [Methotrexate] 20 mg PO FR Dicyclomine [Bentyl] 10 mg PO ACHS Baclofen 10 mg PO TID PRN PRN Reason: Muscle Spasm Omeprazole 40 mg PO DAILY Calcium Carbonate 500 mg PO BID Cyanocobalamin (Vitamin B-12) [Vitamin B-12] 5,000 mcg PO DAILY [place]-3 Fatty Acids/Fish Oil [Fish Oil 1,000 mg Softgel] 1 cap PO BID Gabapentin [Neurontin] 300 mg PO HS Atorvastatin Calcium [Lipitor] 40 mg PO HS Magnesium Citrate 125 mg PO BID Discharge Medication List Aspirin 81 mg PO DAILY 06/17/18 [History] Multivit-Min/FA/Lycopen/Lutein [Centrum Silver Tablet] 1 tab PO DAILY 06/17/18 [History] Venlafaxine HCl [Effexor] 150 mg PO DAILY 06/17/18 [History] Certolizumab Pegol [Cimzia] 400 mg SQ Q30D 07/01/18 [History] Folic Acid 1 mg PO Q48H 07/01/18 [History] Gabapentin [Neurontin] 100 mg PO TID 07/01/18 [History] rOPINIRole HCL [Requip] 0.5 mg PO BID 07/01/18 [History] Dicyclomine [Bentyl] 10 mg PO ACHS 10/06/18 [History] Methotrexate Sodium [Methotrexate] 20 mg PO FR 10/06/18 [History] Baclofen 10 mg PO TID PRN 12/19/18 [History] Omeprazole 40 mg PO DAILY 12/19/18 [History] Calcium Carbonate 500 mg PO BID 06/09/19 [History] Cyanocobalamin (Vitamin B-12) [Vitamin B-12] 5,000 mcg PO DAILY 06/09/19 [History] Atorvastatin Calcium [Lipitor] 40 mg PO HS 10/12/19 [History] Gabapentin [Neurontin] 300 mg PO HS 10/12/19 [History] Magnesium Citrate 125 mg PO BID 10/12/19 [History] [place]-3 Fatty Acids/Fish Oil [Fish Oil 1,000 mg Softgel] 1 cap PO BID 10/12/19 [History] Polyethylene Glycol 3350 [Miralax] 17 gm PO BID powd.pack 10/15/19 [Rx] Follow up Appointment(s)/Referral(s): Jh Garcia DO [Primary Care Provider] - 1 Week (unable to get ahold of office, please call and make follow up appointment.) Suzy Soto MD [STAFF PHYSICIAN] - 11/04/19 10:30 am (with Saige HUANG) Activity/Diet/Wound Care/Special Instructions: OP EUS of the Pancreas to be arranged by GI Discharge Disposition: HOME SELF-CARE
[2019-10-17] MEDS ORDERED: METHOTREXATE SODIUM 2.5 MG TAB PO SCH (09:00)
== END 2019-10-15 10:19 | disposition home or self-care (01) | DRG 389 ==
LOC: EC 15:01 → 4SSUR 18:49
PROVIDERS: ADMIT Family Medicine; ATTEND Family Medicine
DX: K56.7 Ileus, unspecified (principal); N17.9 Acute kidney failure, unspecified; K86.89 Other specified diseases of pancreas; K59.00 Constipation, unspecified; F32.9 Major depressive disorder, single episode, unspecified; F41.9 Anxiety disorder, unspecified; E78.5 Hyperlipidemia, unspecified; I10 Essential (primary) hypertension; Z79.82 Long term (current) use of aspirin; Z79.899 Other long term (current) drug therapy; Z82.49 Family history of ischemic heart disease and other diseases of the circulatory system; Z86.73 Personal history of transient ischemic attack (TIA), and cerebral infarction without residual deficits; Z87.442 Personal history of urinary calculi; Z90.49 Acquired absence of other specified parts of digestive tract; Z96.653 Presence of artificial knee joint, bilateral; K21.9 Gastro-esophageal reflux disease without esophagitis; M19.90 Unspecified osteoarthritis, unspecified site; Z88.8 Allergy status to other drugs, medicaments and biological substances; Z98.49 Cataract extraction status, unspecified eye; K44.9 Diaphragmatic hernia without obstruction or gangrene; M06.9 Rheumatoid arthritis, unspecified
CPT/HCPCS: 36415; 74177; 74183; 80053; 81001; 82150; 83690; 85025; 96361; 96374; 99285

== ENCOUNTER 2019-10-28 17:17 | Observation (INO) | payer MEDICARE ==
[2019-10-28] MEDS ORDERED: SODIUM CHLORIDE 0.9% 500 ML 500 ML IV STA (18:39)
--- NOTE | 2019-10-28 19:21 | ED ---
General Adult HPI <Justin Perla - Last Filed: 10/28/19 21:11> - General Source: patient, RN notes reviewed, old records reviewed Mode of arrival: wheelchair Limitations: no limitations <Neel Thompson - Last Filed: 10/28/19 21:17> - General Chief complaint: Recheck/Abnormal Lab/Rx Stated complaint: weakness Time Seen by Provider: 10/28/19 18:15 - History of Present Illness Initial comments: 79-year-old female patient past medical history of skin cancer likely squamous cell carcinoma, chronic kidney disease, cholecystectomy, possible early dementia. Arthritis receive 50 complaint generalized weakness. Patient was at the last week she's been experiencing generalized weakness. Denies any focal area of pain. Denies any headaches or changes in vision. Denies chest pain shortness of breath. He reports that she feels more tired than usual. Patient reportedly went to her primary care provider Dr. Garcia recommended that she be admitted to hospital. Systemic: Pt denies fatigue, fever/chills, rash. Pt denies weakness, night sweats, weight loss. Neuro: Pt denies headache, visual disturbances, syncope or pre-syncope. HEENT: Pt denies ocular discharge or irritation, otalgia, rhinorrhea, pharyngitis or notable lymphadenopathy. Cardiopulmonary: Pt denies chest pain, SOB, heart palpitations, dyspnea on exertion. Abdominal/GI: Pt denies abdominal pain, n/v/d. : Pt denies dysuria, burning w/ urination, frequency/urgency. Denies new onset urinary or bowel incontinence. MSK: Pt denies myalgia, loss of strength or function in extremities. Neuro: Pt denies new onset paresthesias. (Neel Thompson) - Related Data Home Medications Medication Instructions Recorded Confirmed Aspirin 81 mg PO DAILY 06/17/18 10/12/19 Multivit-Min/FA/Lycopen/Lutein 1 tab PO DAILY 06/17/18 10/12/19 [Centrum Silver Tablet] Venlafaxine HCl [Effexor] 150 mg PO DAILY 06/17/18 10/12/19 Certolizumab Pegol [Cimzia] 400 mg SQ Q30D 07/01/18 10/12/19 Folic Acid 1 mg PO Q48H 07/01/18 10/12/19 Gabapentin [Neurontin] 100 mg PO TID 07/01/18 10/12/19 rOPINIRole HCL [Requip] 0.5 mg PO BID 07/01/18 10/12/19 Dicyclomine [Bentyl] 10 mg PO ACHS 10/06/18 10/12/19 Methotrexate Sodium [Methotrexate] 20 mg PO FR 10/06/18 10/12/19 Baclofen 10 mg PO TID PRN 12/19/18 10/12/19 Omeprazole 40 mg PO DAILY 12/19/18 10/12/19 Calcium Carbonate 500 mg PO BID 06/09/19 10/12/19 Cyanocobalamin (Vitamin B-12) 5,000 mcg PO DAILY 06/09/19 10/12/19 [Vitamin B-12] Atorvastatin Calcium [Lipitor] 40 mg PO HS 10/12/19 10/12/19 Gabapentin [Neurontin] 300 mg PO HS 10/12/19 10/12/19 Magnesium Citrate 125 mg PO BID 10/12/19 10/12/19 [place]-3 Fatty Acids/Fish Oil [Fish 1 cap PO BID 10/12/19 10/12/19 Oil 1,000 mg Softgel] Previous Rx's Medication Instructions Recorded Polyethylene Glycol 3350 [Miralax] 17 gm PO BID powd.pack 10/15/19 Allergies Allergy/AdvReac Type Severity Reaction Status Date / Time etodolac [From Lodine] Allergy Rash/Hives Verified 10/28/19 18:14 nabumetone [From Relafen] Allergy Rash/Hives Verified 10/28/19 18:14 naproxen [From Naprosyn] Allergy Rash/Hives Verified 10/28/19 18:14 NSAIDS (Non-Steroidal Allergy Rash/Hives Verified 10/28/19 18:14 Anti-Inflamma Review of Systems ROS Other: All systems not noted in ROS Statement are negative. <Justin Perla - Last Filed: 10/28/19 21:11> ROS Other: All systems not noted in ROS Statement are negative. <Neel Thompson - Last Filed: 10/28/19 21:17> ROS Statement: Those systems with pertinent positive or pertinent negative responses have been documented in the HPI. Past Medical History Past Medical History: Cancer, CVA/TIA, GERD/Reflux, Osteoarthritis (OA), Pneumonia, Renal Disease, Rheumatoid Arthritis (RA) Additional Past Medical History / Comment(s): Spouse thinks pt may have the very beginnnings of dementia, arthritis in multiple joints, RLS, UTIs, stress headach es, pericardial effusion, pleurisy, Skin cancer on her nose. Cut on L finger. Kidney stones. History of Any Multi-Drug Resistant Organisms: None Reported Past Surgical History: Cholecystectomy, Joint Replacement, Orthopedic Surgery Additional Past Surgical History / Comment(s): Rotator cuff (R); Ric Knee Replacement; Panniculectomy, bilateral legs varicose vein surgery, colonoscopies-normal, bilateral cataract removal, FNA abdominal seroma, cystoscopy/bladder bx/lithotripsy with R ureteral stent., Past Anesthesia/Blood Transfusion Reactions: No Reported Reaction Additional Past Anesthesia/Blood Transfusion Reaction / Comment(s): Pt has received blood after panniculectomy without reaction. Past Psychological History: No Psychological Hx Reported Smoking Status: Never smoker Past Alcohol Use History: None Reported Past Drug Use History: None Reported - Past Family History Mother Family Medical History: Myocardial Infarction (MD) Additional Family Medical History / Comment(s): Mother at age 69 yrs after having the flu and complicated by a MD. Father Additional Family Medical History / Comment(s): IBS. Father at age 78yrs. <Neel Thompson - Last Filed: 10/28/19 21:17> General Exam Limitations: no limitations <Neel Thompson - Last Filed: 10/28/19 21:17> - General Exam Comments Initial Comments: Constitutional: NAD, AOX3, Pt has pleasant affect. HEENT: NC/AT, trachea midline, neck supple, no lymphadenopathy. Posterior pharynx non erythematous, without exudates. External ears appear normal, without discharge. Mucous membranes moist. Eyes PERRLA, EOM intact. There is no scleral icterus. No pallor noted. Cardiopulmonary: RRR, no murmurs, rubs or gallops, no JVD noted. Lungs CTAB in anterior and posterior [place]. No peripheral edema. Abdominal exam: Abdomen soft and non-distended. Abdomen non-tender to palpation in all 4 quadrants. Bowel sounds active in LLQ. No hepatosplenomegaly. No ecchymosis Neuro: CN II-XII intact. No nuchal rigidity. No raccon eyes, no hankins sign, no hemotympanum. No cervical spinal tenderness. NIH 0. MSK: No posterior calf tenderness bilaterally, homans sign negative bilaterally. Posterior tibialis and radial pulse +2 bilaterally. Sensation intact in upper and lower extremities. Full active ROM in upper and lower extremities, 5/5 stregnth. (Neel Thompson) Course <Justin Perla - Last Filed: 10/28/19 21:11> Vital Signs 10/28/19 18:11 Temperature 97.8 F Pulse Rate 64 Respiratory 20 Rate Blood Pressure 130/70 O2 Sat by Pulse 96 Oximetry - Reevaluation(s) Reevaluation #1: 10/28/19 21:11 PA supervision: I personally [id number] evaluation the patient does present with complains weakness. No focal deficits no focal pain she does have evidence on lab work of acute kidney injury dehydration. She'll be admitted for IV hydration. I did discuss case with Dr. Garcia. (Justin Perla) Medical Decision Making - Lab Data Result diagrams: 10/28/19 19:15 10/28/19 19:15 <PanJustin - Last Filed: 10/28/19 21:11> - Lab Data Result diagrams: 10/28/19 19:15 10/28/19 19:15 - EKG Data -: EKG Interpreted by Me <Neel Thompson - Last Filed: 10/28/19 21:17> - Medical Decision Making 79-year-old female patient past medical history of skin cancer likely squamous cell carcinoma, chronic kidney disease, cholecystectomy, possible early dementia. Arthritis receive 50 complaint generalized weakness. Patient was at the last week she's been experiencing generalized weakness. Denies any focal area of pain. Denies any headaches or changes in vision. Denies chest pain shortness of breath. He reports that she feels more tired than usual. Patient reportedly went to her primary care provider Dr. Garcia recommended that she be a dmitted to hospital. Patient rolled signs are stable, afebrile. Physical exam demonstrates pathology. Neurologic exam is intact. NIH is 0. Laboratory investigations were obtained, this did display a acute kidney injury. Elevated BUN, elevated creatinine. Mildly elevated phosphorus magnesium. Mild elevation of liver enzymes. Troponin negative. TSH is low, T4 pending. UA displayed 6 white blood cells. 1 squamous cell. Small leukocyte Estrace.. 3 Blood cells. 12 hyaline casts. Patient not having dysuria. Brain CT is negative. Chest x- rays negative. EKG nonischemic. Patient will be admitted for MARYCARMEN. Case discussed with Dr. Perla. (Neel Thompson) - Lab Data Lab Results 10/28/19 10/28/19 10/28/19 Range/Units 19:15 19:15 19:15 WBC 7.2 (3.8-10.6) k/uL RBC 4.17 (3.80-5.40) m/uL Hgb 12.9 (11.4-16.0) gm/dL Hct 41.3 (34.0-46.0) % MCV 99.0 (80.0-100.0) fL MCH 30.8 (25.0-35.0) pg MCHC 31.2 (31.0-37.0) g/dL RDW 14.9 (11.5-15.5) % Plt Count 218 (150-450) k/uL Neutrophils % (Manual) 57 % Lymphocytes % (Manual) 33 % Monocytes % (Manual) 7 % Eosinophils % (Manual) 3 % Neutrophils # (Manual) 4.10 (1.3-7.7) k/uL Lymphocytes # (Manual) 2.38 (1.0-4.8) k/uL Monocytes # (Manual) 0.50 (0-1.0) k/uL Eosinophils # (Manual) 0.22 (0-0.7) k/uL Nucleated RBCs 0 (0-0) /100 WBC Manual Slide Review Performed Hypochromasia Slight Macrocytosis Slight PT (9.0-12.0) sec INR (<1.2) APTT (22.0-30.0) sec Sodium 139 (137-145) mmol/L Potassium 4.3 (3.5-5.1) mmol/L Chloride 109 H (98-107) mmol/L Carbon Dioxide 21 L (22-30) mmol/L Anion Gap 9 mmol/L BUN 47 H (7-17) mg/dL Creatinine 1.29 H (0.52-1.04) mg/dL Est GFR (CKD-EPI)AfAm 46 (>60 ml/min/1.73 sqM) Est GFR (CKD-EPI)NonAf 40 (>60 ml/min/1.73 sqM) Glucose 91 (74-99) mg/dL Plasma Lactic Acid [place] 1.3 (0.7-2.0) mmol/L Calcium 9.4 (8.4-10.2) mg/dL Phosphorus 5.7 H (2.5-4.5) mg/dL Magnesium 2.5 H (1.6-2.3) mg/dL Total Bilirubin 0.5 (0.2-1.3) mg/dL AST 39 H (14-36) U/L ALT 53 H (4-34) U/L Alkaline Phosphatase 83 (38-126) U/L Troponin I (0.000-0.034) ng/mL Total Protein 6.8 (6.3-8.2) g/dL Albumin 4.0 (3.5-5.0) g/dL TSH 0.068 L (0.465-4.680) mIU/L Urine Color Urine Appearance (Clear) Urine pH (5.0-8.0) Ur Specific [address] (1.001-1.035) Urine Protein (Negative) Urine Glucose (UA) (Negative) Urine Ketones (Negative) Urine Blood (Negative) Urine Nitrite (Negative) Urine Bilirubin (Negative) Urine Urobilinogen (<2.0) mg/dL Ur Leukocyte Esterase (Negative) Urine RBC (0-5) /hpf Urine WBC (0-5) /hpf Ur Squamous Epith Cells (0-4) /hpf Urine Bacteria (None) /hpf Hyaline Casts (0-2) /lpf Urine Mucus (None) /hpf 10/28/19 10/28/19 10/28/19 Range/Units 19:15 19:15 19:15 WBC (3.8-10.6) k/uL RBC (3.80-5.40) m/uL Hgb (11.4-16.0) gm/dL Hct (34.0-46.0) % MCV (80.0-100.0) fL MCH (25.0-35.0) pg MCHC (31.0-37.0) g/dL RDW (11.5-15.5) % Plt Count (150-450) k/uL Neutrophils % (Manual) % Lymphocytes % (Manual) % Monocytes % (Manual) % Eosinophils % (Manual) % Neutrophils # (Manual) (1.3-7.7) k/uL Lymphocytes # (Manual) (1.0-4.8) k/uL Monocytes # (Manual) (0-1.0) k/uL Eosinophils # (Manual) (0-0.7) k/uL Nucleated RBCs (0-0) /100 WBC Manual Slide Review Hypochromasia Macrocytosis PT 9.5 (9.0-12.0) sec INR 0.9 (<1.2) APTT 22.2 (22.0-30.0) sec Sodium (137-145) mmol/L Potassium (3.5-5.1) mmol/L Chloride (98-107) mmol/L Carbon Dioxide (22-30) mmol/L Anion Gap mmol/L BUN (7-17) mg/dL Creatinine (0.52-1.04) mg/dL Est GFR (CKD-EPI)AfAm (>60 ml/min/1.73 sqM) Est GFR (CKD-EPI)NonAf (>60 ml/min/1.73 sqM) Glucose (74-99) mg/dL Plasma Lactic Acid [place] (0.7-2.0) mmol/L Calcium (8.4-10.2) mg/dL Phosphorus (2.5-4.5) mg/dL Magnesium (1.6-2.3) mg/dL Total Bilirubin (0.2-1.3) mg/dL AST (14-36) U/L ALT (4-34) U/L Alkaline Phosphatase (38-126) U/L Troponin I <0.012 (0.000-0.034) ng/mL Total Protein (6.3-8.2) g/dL Albumin (3.5-5.0) g/dL TSH (0.465-4.680) mIU/L Urine Color Y[place] Urine Appearance Clear (Clear) Urine pH 5.0 (5.0-8.0) Ur Specific [address] 1.030 (1.001-1.035) Urine Protein Negative (Negative) Urine Glucose (UA) Negative (Negative) Urine Ketones Negative (Negative) Urine Blood Negative (Negative) Urine Nitrite Negative (Negative) Urine Bilirubin Negative (Negative) Urine Urobilinogen <2.0 (<2.0) mg/dL Ur Leukocyte Esterase Small (Negative) Urine RBC 3 (0-5) /hpf Urine WBC 6 H (0-5) /hpf Ur Squamous Epith Cells 1 (0-4) /hpf Urine Bacteria Rare H (None) /hpf Hyaline Casts 12 H (0-2) /lpf Urine Mucus Rare H (None) /hpf - EKG Data EKG Comments: Ventricular rate 61,. 4-88, QRS 152, QT/QTc 458/461. Sinus Rhythm with first- degree AV block. Right bundle-branch block. No concern for acute ischemia at this time. (Neel Thompson) Disposition <Justin Perla - Last Filed: 10/28/19 21:11> Is patient prescribed a controlled substance at d/c from ED?: No <Neel Thompson - Last Filed: 10/28/19 21:17> Clinical Impression: MARYCARMEN (acute kidney injury), Dehydration Disposition: ADMITTED IP TO THIS HOSP Referrals: Jh Garcia DO [Primary Care Provider] - 1-2 days
[2019-10-28 19:44] LABS: INR 0.9 (<1.2); Partial Thromboplastin Time 22.2 sec (22.0-30.0); Prothrombin Time 9.5 sec (9.0-12.0)
[2019-10-28 19:45] LABS: Calcium 9.4 mg/dL (8.4-10.2); Magnesium 2.5 mg/dL (1.6-2.3); Phosphorus 5.7 mg/dL (2.5-4.5); Potassium 4.3 mmol/L (3.5-5.1); Total Bilirubin 0.5 mg/dL (0.2-1.3); Total Protein 6.8 g/dL (6.3-8.2)
[2019-10-28 19:53] LABS: HCT 41.3 % (34.0-46.0); HGB 12.9 gm/dL (11.4-16.0); Hypochromasia Slight; MCH 30.8 pg (25.0-35.0); MCHC 31.2 g/dL (31.0-37.0); Macrocytosis Slight; Mean Platelet Volume 7.6; Platelet Count 218 k/uL (150-450); RBC 4.17 m/uL (3.80-5.40); RDW 14.9 % (11.5-15.5); WBC 7.2 k/uL (3.8-10.6)
[2019-10-28 20:03] LABS: Bacteria,Urine Rare /hpf; Hyaline Casts,Urine 12 /lpf (0-2); Mucus,Urine Rare /hpf; RBC,Urine 3 /hpf (0-5); Squamous Epithelial Cell,Urine 1 /hpf (0-4); WBC,Urine 6 /hpf (0-5)
--- NOTE | 2019-10-28 20:10 | XR ---
EXAMINATION TYPE: XR chest 2V DATE OF EXAM: 10/28/2019 COMPARISON: 10/02/2019 HISTORY: Weakness TECHNIQUE: FINDINGS: There is no heart failure nor confluent pneumonic infiltrate. Costophrenic angles are clear . Heart size is normal. There are no hilar masses. Bony thorax is intact. IMPRESSION: No active cardiopulmonary disease. No change.
[2019-10-28 20:16] LABS: Appearance,Urine Clear (Clear); Bilirubin,Urine Negative (Negative); Blood,Urine Negative (Negative); Color,Urine Amber; Glucose,Urine (UA) Negative (Negative); Ketones,Urine Negative (Negative); Leukocyte Esterase,Urine Small (Negative); Nitrite,Urine Negative (Negative); Protein,Urine Negative (Negative); Urobilinogen,Urine <2.0 mg/dL (<2.0)
--- NOTE | 2019-10-28 20:18 | CT ---
EXAMINATION TYPE: CT brain wo con DATE OF EXAM: 10/28/2019 COMPARISON: 06/09/2019 HISTORY: weakness, fatigue CT DLP: 1091.4 mGycm Automated exposure control for dose reduction was used. Multiple axial sections were obtained of the brain without contrast. There is cerebral cortical atrophy. There is no mass effect nor midline shift. There is no sign of in tracranial hemorrhage. The calvarium is intact. There is no evidence of cerebral edema. IMPRESSION: Cerebral atrophy. No acute intracranial abnormality. No change.
[2019-10-28] MEDS ORDERED: SODIUM CHLORIDE 0.9% 500 ML 500 ML IV ONE (20:20)
[2019-10-28 20:46] LABS: Eosinophils # (M) 0.22 k/uL (0-0.7); Lymphocytes # (M) 2.38 k/uL (1.0-4.8); Neutrophils % (M) 57 %; Nucleated Red Blood Cells 0 /100 WBC (0-0); Total Cells Counted 100
[2019-10-28] MEDS ORDERED: NALOXONE 0.4 MG/ML 1 ML VIAL IV PRN (21:15)
[2019-10-29] MEDS: SODIUM CHLORIDE 0.9% 1,000 ML IV SCH ×2 (01:36→08:10)
[2019-10-29 06:40] LABS: HCT 35.9 % (34.0-46.0); HGB 11.2 gm/dL (11.4-16.0); MCH 30.7 pg (25.0-35.0); MCHC 31.3 g/dL (31.0-37.0); MCV 98.1 fL (80.0-100.0); Macrocytosis Slight; Mean Platelet Volume 7.5; Platelet Count 187 k/uL (150-450); RBC 3.66 m/uL (3.80-5.40); WBC 4.8 k/uL (3.8-10.6)
[2019-10-29 06:42] LABS: Calcium 8.3 mg/dL (8.4-10.2); Magnesium 2.1 mg/dL (1.6-2.3); Phosphorus 3.4 mg/dL (2.5-4.5); Potassium 3.5 mmol/L (3.5-5.1); Total Bilirubin 0.7 mg/dL (0.2-1.3); Total Protein 5.5 g/dL (6.3-8.2)
[2019-10-29 07:10] LABS: Eosinophils # (M) 0.53 k/uL (0-0.7); Lymphocytes # (M) 1.58 k/uL (1.0-4.8); Monocytes # (M) 0.53 k/uL (0-1.0); Neutrophils # (M) 2.16 k/uL (1.3-7.7); Neutrophils % (M) 45 %; Nucleated Red Blood Cells 0 /100 WBC (0-0); Poikilocytosis (M) Present; Total Cells Counted 100
[2019-10-29 07:23] VITALS: RESP 16
[2019-10-29 08:08] VITALS: BP 150/70; PULSE 60; TEMP 97.5
[2019-10-29] MEDS ORDERED: ACETAMINOPHEN TAB 325 MG TAB PO STA (09:32)
--- NOTE | 2019-11-10 15:33 | P.HPIM ---
History of Present Illness H&P Date: 10/29/19 Chief Complaint: Increased tiredness History and Physical and Discharge Summary This is a 79-year-old female history of chronic kidney disease, cholecystectomy multiple other medical issues presented to the ER with complaints of generalized weakness. Patient recently admitted with dilated pancreatic duct and scheduled for outpatient EUS of the pancreas by GI. Reports taking Alieve daily at home, minimal water intake. Denies nausea vomiting or diarrhea. VSS,Afebrile, normal WBC. Creatinine 1.29, baseline 0.7, received IV fluid hydration with creatinine currently at 1.02. Influenza A and B not detected. Chest x-ray reporting no acute cardiopulmonary disease, no change. Brain CT reporting acute intracranial abnormality, no change. EKG reporting sinus rhythm with first-degree AV block, right bundle branch block, troponin negative 1. Denies chest pain, palpitations or shortness of breath. Denies lightheadedness, dizziness or focal deficits. Review of Systems ROS Other: All systems not noted in ROS Statement are negative. ROS Statement: Those systems with pertinent positive or pertinent negative responses have been documented in the HPI. Past Medical History Past Medical History: Cancer, CVA/TIA, GERD/Reflux, Osteoarthritis (OA), Pneumonia, Renal Disease, Rheumatoid Arthritis (RA) Additional Past Medical History / Comment(s): Spouse thinks pt may have the very beginnnings of dementia, arthritis in multiple joints, RLS, UTIs, stress headaches, pericardial effusion, pleurisy, Skin cancer on her nose. Cut on L finger. Kidney stones. History of Any Multi-Drug Resistant Organisms: None Reported Past Surgical History: Cholecystectomy, Joint Replacement, Orthopedic Surgery Additional Past Surgical History / Comment(s): Rotator cuff (R); Ric Knee Replacement; Panniculectomy, bilateral legs varicose vein surgery, colonoscopies-normal, bilateral cataract removal, FNA abdominal seroma, cystoscopy/bladder bx/lithotripsy with R ureteral stent., Past Anesthesia/Blood Transfusion Reactions: No Reported Reaction Additional Past Anesthesia/Blood Transfusion Reaction / Comment(s): Pt has received blood after panniculectomy without reaction. Past Psychological History: No Psychological Hx Reported Smoking Status: Never smoker Past Alcohol Use History: None Reported Past Drug Use History: None Reported - Past Family History Mother Family Medical History: Myocardial Infarction (ID) Additional Family Medical History / Comment(s): Mother at age 69 yrs after having the flu and complicated by a ID. Father Additional Family Medical History / Comment(s): IBS. Father at age 78yrs. Medications and Allergies Home Medications Medication Instructions Recorded Confirmed Type Aspirin 81 mg PO DAILY 06/17/18 10/28/19 History Multivit-Min/FA/Lycopen/Lutein 1 tab PO DAILY 06/17/18 10/28/19 History [Centrum Silver Tablet] Certolizumab Pegol [Cimzia] 400 mg SQ Q30D 07/01/18 10/28/19 History Folic Acid 1 mg PO Q48H 07/01/18 10/28/19 History Gabapentin [Neurontin] 100 mg PO TID 07/01/18 10/28/19 History rOPINIRole HCL [Requip] 0.5 mg PO BID 07/01/18 10/28/19 History Dicyclomine [Bentyl] 10 mg PO ACHS 10/06/18 10/28/19 History Methotrexate Sodium [Methotrexate] 20 mg PO FR 10/06/18 10/28/19 History Baclofen 10 mg PO BID PRN 12/19/18 10/28/19 History Calcium Carbonate 500 mg PO BID 06/09/19 10/28/19 History Cyanocobalamin (Vitamin B-12) 5,000 mcg PO DAILY 06/09/19 10/28/19 History [Vitamin B-12] Atorvastatin Calcium [Lipitor] 40 mg PO HS 10/12/19 10/28/19 History Gabapentin [Neurontin] 300 mg PO HS 10/12/19 10/28/19 History Magnesium Citrate 125 mg PO BID 10/12/19 10/28/19 History [place]-3 Fatty Acids/Fish Oil [Fish 1 cap PO BID 10/12/19 10/28/19 History Oil 1,000 mg Softgel] Polyethylene Glycol 3350 [Miralax] 17 gm PO BID powd.pack 10/15/19 10/28/19 Rx Omeprazole 20 mg PO DAILY 10/28/19 10/28/19 History Venlafaxine HCl [Effexor XR] 150 mg PO DAILY 10/28/19 10/28/19 History Allergies Allergy/AdvReac Type Severity Reaction Status Date / Time etodolac [From Lodine] Allergy Rash/Hives Verified 10/28/19 22:03 nabumetone [From Relafen] Allergy Rash/Hives Verified 10/28/19 22:03 naproxen [From Naprosyn] Allergy Rash/Hives Verified 10/28/19 22:03 NSAIDS (Non-Steroidal Allergy Rash/Hives Verified 10/28/19 22:03 Anti-Inflamma Physical Exam Vitals: Vital Signs Temp Pulse Pulse Resp BP BP Pulse Ox 10/29/19 08:00 97.5 F L 60 16 150/70 99 10/29/19 07:21 97 F L 67 16 137/56 100 10/29/19 01:32 98.9 F 62 18 125/59 100 10/28/19 22:30 136/51 99 10/28/19 22:00 121/49 10/28/19 21:30 109/47 10/28/19 21:00 127/54 99 10/28/19 20:00 134/52 10/28/19 19:30 129/56 98 10/28/19 19:24 129/56 99 10/28/19 18:11 97.8 F 64 20 130/70 96 Intake and Output 10/28/19 10/29/19 10/29/19 22:59 06:59 14:59 Intake Total 600 Balance 600 Intake: Intake, IV Titration 600 Amount Sodium Chloride 0.9% 1, 100 000 ml @ 100 mls/hr IV . Q10H [facility] Rx#:[id number] Sodium Chloride 0.9% 500 500 ml 500 ml @ 999 mls/hr IV .Q31M [facility] Rx#:[id number] Other: Voiding Method Toilet Weight 70.307 kg GENERAL: This is a -79 year-old in no apparent distress at the time of examination. Pleasant and cooperative. HEENT: Head is atraumatic, normocephalic. Pupils are equal, round, and reactive to light. Sclerae anicteric. Conjunctivae are clear. Mucus membranes of the mouth are moist. Neck is supple. RESPIRATORY: Clear to auscultation. No wheezes, rales, or rhonchi. No use of accessory muscles. Patient maintaining oxygen saturation greater than 92%. No chest wall tenderness is noted on palpation or with deep breathing. CARDIOVASCULAR: Regular rate and rhythm. S1 and S2 noted. No systolic or diastolic murmur auscultated. No JVD noted. No S3 or S4 noted. GASTROINTESTINAL: No distention noted. Abdomen soft and round. Normal active bowel sounds auscultated x 4 quadrants. No pain or tenderness noted upon palpat ion. INTEGUMENTARY: No cyanosis. No jaundice. No rashes noted. No cellulitis noted. EXTREMITIES: 2+ peripheral pulses. No evidence of peripheral edema. No calf tenderness noted. NEUROLOGIC: Cranial nerves II-XII intact. PSYCHIATRIC: Awake, alert, and oriented X 3. Appropriate affect. Intact judgeme nt and insight. Results CBC & Chem 7: 10/29/19 06:08 10/29/19 06:08 Labs: Abnormal Lab Results - Last 24 Hours (Table) 10/28/19 10/28/19 10/29/19 Range/Units 19:15 19:15 06:08 RBC 3.66 L (3.80-5.40) m/uL Hgb 11.2 L (11.4-16.0) gm/dL Chloride 109 H (98-107) mmol/L Carbon Dioxide 21 L (22-30) mmol/L BUN 47 H (7-17) mg/dL Creatinine 1.29 H (0.52-1.04) mg/dL Calcium (8.4-10.2) mg/dL Phosphorus 5.7 H (2.5-4.5) mg/dL Magnesium 2.5 H (1.6-2.3) mg/dL AST 39 H (14-36) U/L ALT 53 H (4-34) U/L Total Protein (6.3-8.2) g/dL Albumin (3.5-5.0) g/dL TSH 0.068 L (0.465-4.680) mIU/L Urine WBC 6 H (0-5) /hpf Urine Bacteria Rare H (None) /hpf Hyaline Casts 12 H (0-2) /lpf Urine Mucus Rare H (None) /hpf 10/29/19 Range/Units 06:08 RBC (3.80-5.40) m/uL Hgb (11.4-16.0) gm/dL Chloride 116 H (98-107) mmol/L Carbon Dioxide 21 L (22-30) mmol/L BUN 35 H (7-17) mg/dL Creatinine (0.52-1.04) mg/dL Calcium 8.3 L (8.4-10.2) mg/dL Phosphorus (2.5-4.5) mg/dL Magnesium (1.6-2.3) mg/dL AST (14-36) U/L ALT 41 H (4-34) U/L Total Protein 5.5 L (6.3-8.2) g/dL Albumin 3.0 L (3.5-5.0) g/dL TSH (0.465-4.680) mIU/L Urine WBC (0-5) /hpf Urine Bacteria (None) /hpf Hyaline Casts (0-2) /lpf Urine Mucus (None) /hpf Assessment and Plan Assessment: Acute renal failure secondary to dehydration, NSAIDs, minimal oral intake Chronic renal failure, stage III Gastroesophageal reflux disease Recently admitted with Dilated pancreatic duct, outpatient EUS scheduled as per GI Possibly early dementia, type unclear Rheumatoid arthritis History of skin cancer, type unclear Plan: Continue on current medication regime ,monitoring and symptomatic treatment. Significant clinical improvement with IV fluid hydration. No NSAIDs. Patient will be discharged home in a stable condition with guarded prognosis. The impression and plan of care has been dictated as directed. : I performed a history and examination of this patient, discussed the same with the dictator. I agree with the dictator's note ,documented as a scribe. Any additional findings or plans will be noted.
== END 2019-10-29 10:21 | disposition home or self-care (01) ==
LOC: EC 17:17 → 5NMEDONC 21:10 → UNDODISOB 10-29 10:21
PROVIDERS: ADMIT Family Medicine; ATTEND Family Medicine
DX: N17.9 Acute kidney failure, unspecified (principal); E86.0 Dehydration; N18.3 Chronic kidney disease, stage 3 (moderate); Z85.828 Personal history of other malignant neoplasm of skin; Z86.73 Personal history of transient ischemic attack (TIA), and cerebral infarction without residual deficits; G25.81 Restless legs syndrome; K21.9 Gastro-esophageal reflux disease without esophagitis; M19.90 Unspecified osteoarthritis, unspecified site; M06.9 Rheumatoid arthritis, unspecified; Z87.442 Personal history of urinary calculi; G31.9 Degenerative disease of nervous system, unspecified; Z79.82 Long term (current) use of aspirin; Z79.899 Other long term (current) drug therapy; Z88.6 Allergy status to analgesic agent; Z88.8 Allergy status to other drugs, medicaments and biological substances; Z82.49 Family history of ischemic heart disease and other diseases of the circulatory system; Z83.79 Family history of other diseases of the digestive system; Z90.49 Acquired absence of other specified parts of digestive tract; Z96.653 Presence of artificial knee joint, bilateral; Z98.42 Cataract extraction status, left eye; Z98.41 Cataract extraction status, right eye
CPT/HCPCS: 96360; 99285; 36415; 93005; 84439; 80053 ×2; 83605; 83735 ×2; 84100 ×2; 84443; 84484; 85025 ×2; 85610; 85730; 81001; 87502; 71046; 70450; G0378 ×2

== ENCOUNTER → 2019-10-30 | Outpatient (CLI) | payer MEDICARE ==
[2019-10-30 18:50] LABS: African American GFR (CKD) 55.7 (60.0-200.0); Anion Gap 2.2 mmol/L (4.00-12.00); Carbon Dioxide 26.8 mmol/L (21.6-31.8); Potassium 4.7 mmol/L (3.5-5.5)
== END | disposition home or self-care (01) ==
LOC: LABT 14:34
PROVIDERS: ATTEND Family Medicine
DX: E86.0 Dehydration (principal); N17.9 Acute kidney failure, unspecified
CPT/HCPCS: 36415; 80048

== ENCOUNTER → 2020-03-25 | Outpatient (CLI) | payer MEDICARE ==
--- NOTE | 2020-03-25 18:59 | XR ---
EXAMINATION TYPE: XR bone survey complete DATE OF EXAM: 03/25/2020 COMPARISON: CT head 10/28/2019. HISTORY: Anemia Red cell aplasia Bony calvarium : 2 views of the bony calvarium demonstrate no suspicious osteolytic or osteoblastic l esions. Spine: Two views of the cervical, thoracic and lumbar spines are submitted. No evidence of compressi on deformity. Multilevel degenerative changes. Grade 1 retrolistheses of L2 on L3 and L3 on L4. PELVIS: Single view of the pelvis demonstrates subtle somewhat permeative appearance. Degenerative ch anges of the hips, right greater than left. Round calcification overlying the pelvis related to uteri ne fibroid. UPPER EXTREMITIES: Two views of the upper extremities. No evidence of pathological fracture. LOWER EXTREMITIES: 2 views of the lower extremities. No evidence of pathological fracture. Bilateral knee prostheses. IMPRESSION: 1. Subtle somewhat permeative appearance of the pelvis. 2. No evidence of pathological fracture.
== END | disposition home or self-care (01) ==
LOC: RADXRMAIN 14:12
PROVIDERS: ATTEND Internal Medicine Hematology & Oncology
DX: M12.9 Arthropathy, unspecified (principal); D47.2 Monoclonal gammopathy; D13.6 Benign neoplasm of pancreas; D60.9 Acquired pure red cell aplasia, unspecified
CPT/HCPCS: 77075

== ENCOUNTER 2020-04-14 20:38 | Inpatient (IN) | payer MEDICARE ==
[2020-04-14] MEDS ORDERED: SODIUM CHLORIDE 0.9% 1,000 ML IV STA ×2 (21:05→22:21)
--- NOTE | 2020-04-14 21:06 | ED ---
Recheck HPI - General Chief Complaint: Abdominal Pain Stated Complaint: Post Op Abd Pain Time Seen by Provider: 04/14/20 21:05 Source: patient, family, RN notes reviewed, old records reviewed Mode of arrival: wheelchair Limitations: no limitations - History of Present Illness Initial Comments: This is a 80-year-old female DF for evaluation severe abdominal pain. Patient had EST today done at a [address] she began severely nauseous with severe severe abdominal pain. Epigastric abdominal pain with nausea and vomiting. Patient states the redness of severe pain prior unsure of results of EGD ERCP work today. Patient's been doing with abdominal symptoms for quite some time MD Complaint: abnormal lab, other (severe post Op pain) -: hour(s) Returns Today for: Called Because of Abnormal Lab/Test, persistent/worsening pain related to initial visit Symptoms Since Prior Visit: no new symptoms, worsening pain Associated Symptoms: none - Related Data Home Medications Medication Instructions Recorded Confirmed Aspirin 81 mg PO DAILY 06/17/18 04/23/20 Folic Acid 1 mg PO Q48H 07/01/18 04/23/20 rOPINIRole HCL [Requip] 0.5 mg PO BID 07/01/18 04/23/20 metHOTREXate sodium [Methotrexate] 20 mg PO FR 10/06/18 04/23/20 Atorvastatin Calcium [Lipitor] 40 mg PO HS 10/12/19 04/23/20 Omeprazole 20 mg PO DAILY 10/28/19 04/23/20 Venlafaxine HCl [Effexor XR] 150 mg PO DAILY 10/28/19 04/23/20 ALPRAZolam [Xanax] 0.25 mg PO DAILY PRN 04/14/20 04/23/20 Donepezil HCl [Aricept] 5 mg PO DAILY 04/14/20 04/23/20 Rizatriptan Odt [Maxalt [employer]] 10 mg PO DAILY PRN 04/14/20 04/23/20 Baclofen [Lioresal] 10 mg PO TID PRN 04/23/20 04/23/20 Certolizumab Pegol [Cimzia] 400 mg SQ Q30D 04/23/20 04/23/20 Dicyclomine [Bentyl] 10 mg PO ACHS 04/23/20 04/23/20 Meclizine [Antivert] 25 mg PO TID PRN 04/23/20 04/23/20 Zonisamide [Zonegran] See Taper PO DIRECTED 04/23/20 04/23/20 Previous Rx's Medication Instructions Recorded polyethylene glycoL 3350 [Miralax] 17 gm PO DAILY #20 powd.pack 04/16/20 Allergies Allergy/AdvReac Type Severity Reaction Status Date / Time cephalexin [From Keflex] Allergy Unknown Verified 04/23/20 10:30 etodolac [From Lodine] Allergy Rash/Hives Verified 04/23/20 10:30 nabumetone [From Relafen] Allergy Rash/Hives Verified 04/23/20 10:30 naproxen [From Naprosyn] Allergy Rash/Hives Verified 04/23/20 10:30 NSAIDS (Non-Steroidal Allergy Rash/Hives Verified 04/23/20 10:30 Anti-Inflamma primidone AdvReac "dizziness" Verified 04/23/20 10:30 Review of Systems ROS Statement: Those systems with pertinent positive or pertinent negative responses have been documented in the HPI. ROS Other: All systems not noted in ROS Statement are negative. Past Medical History Past Medical History: Cancer, CVA/TIA, GERD/Reflux, Osteoarthritis (OA), Pneumonia, Renal Disease, Rheumatoid Arthritis (RA) Additional Past Medical History / Comment(s): Spouse thinks pt may have the very beginnnings of dementia, arthritis in multiple joints, RLS, UTIs, stress headaches, pericardial effusion, pleurisy, Skin cancer on her nose. Cut on L finger. Kidney stones. History of Any Multi-Drug Resistant Organisms: None Reported Past Surgical History: Cholecystectomy, Joint Replacement, Orthopedic Surgery Additional Past Surgical History / Comment(s): Rotator cuff (R); Ric Knee Replacement; Panniculectomy, bilateral legs varicose vein surgery, colonoscopies-normal, bilateral cataract removal, FNA abdominal seroma, cystoscopy/bladder bx/lithotripsy with R ureteral stent., Past Anesthesia/Blood Transfusion Reactions: No Reported Reaction Additional Past Anesthesia/Blood Transfusion Reaction / Comment(s): Pt has recei noe blood after panniculectomy without reaction. Past Psychological History: No Psychological Hx Reported Smoking Status: Never smoker Past Alcohol Use History: None Reported Past Drug Use History: None Reported - Past Family History Mother Family Medical History: Myocardial Infarction ([place]) Additional Family Medical History / Comment(s): Mother at age 69 yrs after having the flu and complicated by a [place]. Father Additional Family Medical History / Comment(s): IBS. Father at age 78yrs. General Exam Limitations: no limitations General appearance: alert, in no apparent distress Head exam: Present: atraumatic, normocephalic, normal inspection Eye exam: Present: normal appearance, PERRL, EOMI. Absent: scleral icterus, conjunctival injection, periorbital swelling ENT exam: Present: normal exam, mucous membranes moist Neck exam: Present: normal inspection. Absent: tenderness, meningismus, lymphadenopathy Respiratory exam: Present: normal lung sounds bilaterally. Absent: respiratory distress, wheezes, rales, rhonchi, stridor Cardiovascular Exam: Present: regular rate, normal rhythm, normal heart sounds. Absent: systolic murmur, diastolic murmur, rubs, gallop, clicks GI/Abdominal exam: Present: soft, normal bowel sounds. Absent: distended, tenderness, guarding, rebound, rigid Extremities exam: Present: normal inspection, full ROM, normal capillary refill. Absent: tenderness, pedal edema, joint swelling, calf tenderness Back exam: Present: normal inspection Neurological exam: Present: alert, oriented X3, CN II-XII intact Psychiatric exam: Present: normal affect, normal mood Skin exam: Present: warm, dry, intact, normal color. Absent: rash Course Vital Signs 04/14/20 04/14/20 04/14/20 20:59 22:01 23:27 Temperature 98.3 F 98.1 F Pulse Rate 66 72 63 Respiratory 18 20 20 Rate Blood Pressure 162/72 155/67 162/62 O2 Sat by Pulse 99 99 97 Oximetry - Reevaluation(s) Reevaluation #1: medical record is reviewed patient symptoms sstill severe spoke w Dr Soto aware of patient and ok for admission informed patient of results, questions answered and will admit for pain control Reevaluation #2: Patient has adequate pain control Patient informed results Spoke with Dr. Soto who is okay for admission Medical Decision Making - Medical Decision Making 80 female DF for evaluation after EGD. Patient is post ERCP pancreatitis will be admitted for IV hydration - Lab Data Result diagrams: 04/15/20 09:30 04/16/20 06:13 Lab Results 04/14/20 04/14/20 04/14/20 Range/Units 21:21 21:21 21:21 WBC 9.1 (3.8-10.6) k/uL RBC 3.69 L (3.80-5.40) m/uL Hgb 12.0 (11.4-16.0) gm/dL Hct 37.8 (34.0-46.0) % MCV 102.7 H (80.0-100.0) fL MCH 32.7 (25.0-35.0) pg MCHC 31.8 (31.0-37.0) g/dL RDW 13.1 (11.5-15.5) % Plt Count 204 (150-450) k/uL Neutrophils % 73 % Lymphocytes % 17 % Monocytes % 5 % Eosinophils % 3 % Basophils % 0 % Neutrophils # 6.6 (1.3-7.7) k/uL Lymphocytes # 1.5 (1.0-4.8) k/uL Monocytes # 0.5 (0-1.0) k/uL Eosinophils # 0.3 (0-0.7) k/uL Basophils # 0.0 (0-0.2) k/uL Macrocytosis Slight Sodium 137 (137-145) mmol/L Potassium 4.3 (3.5-5.1) mmol/L Chloride 106 (98-107) mmol/L Carbon Dioxide 27 (22-30) mmol/L Anion Gap 4 mmol/L BUN 22 H (7-17) mg/dL Creatinine 0.91 (0.52-1.04) mg/dL Est GFR (CKD-EPI)AfAm 69 (>60 ml/min/1.73 sqM) Est GFR (CKD-EPI)NonAf 60 (>60 ml/min/1.73 sqM) Glucose 105 H (74-99) mg/dL Plasma Lactic Acid Hebert (0.7-2.0) mmol/L Calcium 9.1 (8.4-10.2) mg/dL Total Bilirubin 0.7 (0.2-1.3) mg/dL AST 38 H (14-36) U/L ALT 38 H (4-34) U/L Alkaline Phosphatase 67 (38-126) U/L Total Protein 6.4 (6.3-8.2) g/dL Albumin 3.8 (3.5-5.0) g/dL Amylase 1587 H* (30-110) U/L Lipase 04243 H (23-300) U/L Urine Color Yellow Urine Appearance Clear (Clear) Urine pH 7.0 (5.0-8.0) Ur Specific Villard 1.020 (1.001-1.035) Urine Protein Trace H (Negative) Urine Glucose (UA) Negative (Negative) Urine Ketones Negative (Negative) Urine Blood Negative (Negative) Urine Nitrite Negative (Negative) Urine Bilirubin Negative (Negative) Urine Urobilinogen <2.0 (<2.0) mg/dL Ur Leukocyte Esterase Small H (Negative) Urine RBC 3 (0-5) /hpf Urine WBC 6 H (0-5) /hpf Ur Squamous Epith Cells <1 (0-4) /hpf Urine Bacteria Rare H (None) /hpf Urine Mucus Rare H (None) /hpf 04/14/20 Range/Units 21:21 WBC (3.8-10.6) k/uL RBC (3.80-5.40) m/uL Hgb (11.4-16.0) gm/dL Hct (34.0-46.0) % MCV (80.0-100.0) fL MCH (25.0-35.0) pg MCHC (31.0-37.0) g/dL RDW (11.5-15.5) % Plt Count (150-450) k/uL Neutrophils % % Lymphocytes % % Monocytes % % Eosinophils % % Basophils % % Neutrophils # (1.3-7.7) k/uL Lymphocytes # (1.0-4.8) k/uL Monocytes # (0-1.0) k/uL Eosinophils # (0-0.7) k/uL Basophils # (0-0.2) k/uL Macrocytosis Sodium (137-145) mmol/L Potassium (3.5-5.1) mmol/L Chloride (98-107) mmol/L Carbon Dioxide (22-30) mmol/L Anion Gap mmol/L BUN (7-17) mg/dL Creatinine (0.52-1.04) mg/dL Est GFR (CKD-EPI)AfAm (>60 ml/min/1.73 sqM) Est GFR (CKD-EPI)NonAf (>60 ml/min/1.73 sqM) Glucose (74-99) mg/dL Plasma Lactic Acid Hebert 0.7 (0.7-2.0) mmol/L Calcium (8.4-10.2) mg/dL Total Bilirubin (0.2-1.3) mg/dL AST (14-36) U/L ALT (4-34) U/L Alkaline Phosphatase (38-126) U/L Total Protein (6.3-8.2) g/dL Albumin (3.5-5.0) g/dL Amylase (30-110) U/L Lipase (23-300) U/L Urine Color Urine Appearance (Clear) Urine pH (5.0-8.0) Ur Specific Vill[place] (1.001-1.035) Urine Protein (Negative) Urine Glucose (UA) (Negative) Urine Ketones (Negative) Urine Blood (Negative) Urine Nitrite (Negative) Urine Bilirubin (Negative) Urine Urobilinogen (<2.0) mg/dL Ur Leukocyte Esterase (Negative) Urine RBC (0-5) /hpf Urine WBC (0-5) /hpf Ur Squamous Epith Cells (0-4) /hpf Urine Bacteria (None) /hpf Urine Mucus (None) /hpf - Radiology Data Radiology results: report reviewed (XR kub is negative for acute dz), image reviewed Disposition Clinical Impression: Abdominal pain, Pancreatitis, acute Disposition: ADMITTED IP TO THIS [facility] Condition: Fair Is patient prescribed a controlled substance at d/c from ED?: No
[2020-04-14 21:33] LABS: Basophils % (A) 0 %; Eosinophils # (A) 0.3 k/uL (0-0.7); Eosinophils % (A) 3 %; HCT 37.8 % (34.0-46.0); Lymphocytes # (A) 1.5 k/uL (1.0-4.8); Lymphocytes % (A) 17 %; MCH 32.7 pg (25.0-35.0); MCHC 31.8 g/dL (31.0-37.0); MCV 102.7 fL (80.0-100.0); Macrocytosis Slight; Mean Platelet Volume 7.2; Monocytes # (A) 0.5 k/uL (0-1.0); Monocytes % (A) 5 %; Neutrophils # (A) 6.6 k/uL (1.3-7.7); Neutrophils % (A) 73 %; Platelet Count 204 k/uL (150-450); RBC 3.69 m/uL (3.80-5.40); RDW 13.1 % (11.5-15.5); WBC 9.1 k/uL (3.8-10.6)
[2020-04-14 21:42] LABS: Albumin 3.8 g/dL (3.5-5.0); Calcium 9.1 mg/dL (8.4-10.2); Potassium 4.3 mmol/L (3.5-5.1); Total Bilirubin 0.7 mg/dL (0.2-1.3); Total Protein 6.4 g/dL (6.3-8.2)
[2020-04-14 21:53] LABS: Appearance,Urine Clear (Clear); Bacteria,Urine Rare /hpf; Bilirubin,Urine Negative (Negative); Blood,Urine Negative (Negative); Color,Urine Yellow; Glucose,Urine (UA) Negative (Negative); Ketones,Urine Negative (Negative); Leukocyte Esterase,Urine Small (Negative); Mucus,Urine Rare /hpf; Nitrite,Urine Negative (Negative); Protein,Urine Trace (Negative); RBC,Urine 3 /hpf (0-5); Squamous Epithelial Cell,Urine <1 /hpf (0-4); Urobilinogen,Urine <2.0 mg/dL (<2.0); WBC,Urine 6 /hpf (0-5)
--- NOTE | 2020-04-14 22:05 | XR ---
EXAMINATION TYPE: XR KUB DATE OF EXAM: 04/14/2020 COMPARISON: 05/06/2018 HISTORY: Abdominal pain TECHNIQUE: 2 views upright FINDINGS: There is no sign of intestinal obstruction or pneumoperitoneum. Fecal pattern is normal. Th ere is calcification in the pelvis on the left side that could be calcified uterine fibroid. There ar e clips from cholecystectomy. Lung bases are clear. There is rounded 5 mm calcification over the left kidney. IMPRESSION: Nonacute abdomen. Possible left renal calculus.
[2020-04-14] MEDS ORDERED: SODIUM CHLORIDE 0.9% 2,000 ML IV STA (22:21)
[2020-04-14] MEDS ORDERED: ONDANSETRON 4 MG/2 ML VIAL IVP PRN (22:22)
[2020-04-14] MEDS ORDERED: ONDANSETRON 4 MG/2 ML VIAL IVP STA (22:22)
[2020-04-14] MEDS ORDERED: HYDROmorphone 1 MG/ML 1 ML SYRINGE IVP STA (22:22)
[2020-04-14] MEDS ORDERED: PANTOPRAZOLE 40 MG/10 ML VIAL IVP STA (22:22)
[2020-04-15] MEDS ORDERED: hydrALAZINE HCL 20 MG/ML 1 ML VIAL IVP ONE (00:30)
[2020-04-15] MEDS: HYDROmorphone 1 MG/ML 1 ML SYRINGE IVP PRN ×3 (04:48→20:18)
[2020-04-15] MEDS: PANTOPRAZOLE 40 MG/10 ML VIAL IVP SCH (07:33)
[2020-04-15] MEDS ORDERED: polyethylene glycoL 3350 17 GM POWD.PACK PO SCH (09:30)
[2020-04-15 09:50] LABS: Basophils % (A) 0 %; Eosinophils # (A) 0.1 k/uL (0-0.7); Eosinophils % (A) 2 %; HCT 34.5 % (34.0-46.0); HGB 10.5 gm/dL (11.4-16.0); Hypochromasia Moderate; Lymphocytes # (A) 1.7 k/uL (1.0-4.8); Lymphocytes % (A) 27 %; MCH 32.6 pg (25.0-35.0); MCHC 30.5 g/dL (31.0-37.0); MCV 106.6 fL (80.0-100.0); Macrocytosis Moderate; Mean Platelet Volume 7.6; Monocytes # (A) 0.5 k/uL (0-1.0); Monocytes % (A) 8 %; Neutrophils # (A) 3.6 k/uL (1.3-7.7); Neutrophils % (A) 59 %; Platelet Count 171 k/uL (150-450); RBC 3.24 m/uL (3.80-5.40); RDW 13.3 % (11.5-15.5); WBC 6.1 k/uL (3.8-10.6)
[2020-04-15 09:59] LABS: ALT 130 U/L (4-34); AST 198 U/L (14-36); African American GFR (CKD) >90 (>60 ml/min/1.73 sqM); Alkaline Phosphatase 73 U/L (38-126); Anion Gap 1 mmol/L; Blood Urea Nitrogen 16 mg/dL (7-17); Calcium 8.2 mg/dL (8.4-10.2); Carbon Dioxide 25 mmol/L (22-30); Chloride 112 mmol/L (98-107); Glucose 84 mg/dL (74-99); Non-African American GFR(CKD) 84 (>60 ml/min/1.73 sqM); Potassium 4.5 mmol/L (3.5-5.1); Sodium 138 mmol/L (137-145); Total Bilirubin 0.9 mg/dL (0.2-1.3); Total Protein 5.4 g/dL (6.3-8.2)
[2020-04-15 10:08] LABS: Amylase 552 U/L (30-110); Lipase 2177 U/L (23-300)
[2020-04-15] MEDS ORDERED: SUMAtriptan succinate 50 MG TAB PO PRN (12:54)
[2020-04-15] MEDS ORDERED: NON FORMULARY DRUG (Certolizumab Pegol [Cimzia] 400 MG) SQ SCH (13:00)
--- NOTE | 2020-04-15 15:09 | P.HPIM ---
History of Present Illness pleasant 59-year-old female came in with complaints of severe abdominal pain along with nausea denied any vomiting. Patient had a endoscopic ultrasound with a pancreatic biopsy yesterday at [facility] while she was coming back from [facility] patient started having severe abdominal pain came to the hospital found to have pancreatitis was subsequently admitted here. Patient appears to have postprocedural pancreatitis patient had a pancreatic Mass which appeared to be cystic on endoscopic ultrasound biopsy results are not available at this time. Patient had a biopsy of that pancreatic mass. No other lesions concerning for cancer were evident on endoscopic ultrasound. Patient had a cholecystectomy in the past patient has mildly elevated liver enzymes which is again secondary to pancreatitis.patient also comparing of some headache at this time. Review of Systems REVIEW OF SYSTEMS: CONSTITUTIONAL: No fever, no malaise, no fatigue. HEENT: No recent visual problems or hearing problems. Denied any sore throat. CARDIOVASCULAR: No chest pain, orthopnea, PND, no palpitations, no syncope. PULMONARY: No shortness of breath, no cough, no hemoptysis. GASTROINTESTINAL: No diarrhea, no vomiting, NEUROLOGICAL: No headaches, no weakness, no numbness. HEMATOLOGICAL: Denies any bleeding or petechiae. GENITOURINARY: Denies any burning micturition, frequency, or urgency. MUSCULOSKELETAL/RHEUMATOLOGICAL: Denies any joint pain, swelling, or any muscle pain. ENDOCRINE: Denies any polyuria or polydipsia. The rest of the 14-point review of systems is negative. Past Medical History Past Medical History: Cancer, GERD/Reflux, Osteoarthritis (OA), Pneumonia, Renal Disease, Rheumatoid Arthritis (RA) Additional Past Medical History / Comment(s): Spouse thinks pt may have the very beginnnings of dementia, arthritis in multiple joints, RLS, UTIs, stress headaches, pericardial effusion, pleurisy, Skin cancer on her nose. Cut on L finger. Kidney stones. History of Any Multi-Drug Resistant Organisms: None Reported Past Surgical History: Cholecystectomy, Joint Replacement, Orthopedic Surgery Additional Past Surgical History / Comment(s): Rotator cuff (R); Ric Knee Replacement; Panniculectomy, bilateral legs varicose vein surgery, colonoscopies-normal, bilateral cataract removal, FNA abdominal seroma, cystoscopy/bladder bx/lithotripsy with R ureteral stent., Past Anesthesia/Blood Transfusion Reactions: No Reported Reaction Additional Past Anesthesia/Blood Transfusion Reaction / Comment(s): Pt has received blood after panniculectomy without reaction. Past Psychological History: No Psychological Hx Reported Smoking Status: Never smoker Past Alcohol Use History: None Reported Past Drug Use History: None Reported - Past Family History Mother Family Medical History: Myocardial Infarction ([place]) Additional Family Medical History / Comment(s): Mother at age 69 yrs after having the flu and complicated by a VT. Father Additional Family Medical History / Comment(s): IBS. Father at age 78yrs. Medications and Allergies Home Medications Medication Instructions Recorded Confirmed Type Aspirin 81 mg PO DAILY 06/17/18 04/14/20 History Certolizumab Pegol [Cimzia] 400 mg SQ Q30D 07/01/18 04/14/20 History Folic Acid 1 mg PO Q48H 07/01/18 04/14/20 History rOPINIRole HCL [Requip] 0.5 mg PO BID 07/01/18 04/14/20 History Dicyclomine [Bentyl] 10 mg PO ACHS 10/06/18 04/14/20 History metHOTREXate sodium [Methotrexate] 20 mg PO FR 10/06/18 04/14/20 History Baclofen 10 mg PO TID PRN 12/19/18 04/14/20 History Atorvastatin Calcium [Lipitor] 40 mg PO HS 10/12/19 04/14/20 History Omeprazole 20 mg PO DAILY 10/28/19 04/14/20 History Venlafaxine HCl [Effexor XR] 150 mg PO DAILY 10/28/19 04/14/20 History ALPRAZolam [Xanax] 0.25 mg PO DAILY PRN 04/14/20 04/14/20 History Donepezil HCl [Aricept] 5 mg PO DAILY 04/14/20 04/14/20 History Rizatriptan Odt [Maxalt [employer]] 10 mg PO DAILY PRN 04/14/20 04/14/20 History Allergies Allergy/AdvReac Type Severity Reaction Status Date / Time etodolac [From Lodine] Allergy Rash/Hives Verified 04/14/20 23:13 nabumetone [From Relafen] Allergy Rash/Hives Verified 04/14/20 23:13 naproxen [From Naprosyn] Allergy Rash/Hives Verified 04/14/20 23:13 NSAIDS (Non-Steroidal Allergy Rash/Hives Verified 04/14/20 23:13 Anti-Inflamma primidone AdvReac "dizziness" Verified 04/14/20 23:13 Physical Exam Vitals: Vital Signs Temp Pulse Pulse Pulse Resp BP BP 04/15/20 07:00 98.6 F 76 18 133/63 04/15/20 01:51 98.1 F 71 18 142/72 04/15/20 00:08 98.1 F 63 18 186/70 04/14/20 23:27 98.1 F 63 20 162/62 04/14/20 22:01 72 20 155/67 04/14/20 20:59 98.3 F 66 18 162/72 Pulse Ox 04/15/20 07:00 94 L 04/15/20 01:51 95 04/15/20 00:08 96 04/14/20 23:27 97 04/14/20 22:01 99 04/14/20 20:59 99 Intake and Output 04/15/20 04/15/20 04/15/20 06:59 14:59 22:59 Other: # Voids 2 Weight 68.039 kg PHYSICAL EXAMINATION: GENERAL: The patient is alert and oriented x3, not in any acute distress. Well developed, well nourished. HEENT: Pupils are round and equally reacting to light. EOMI. No scleral icterus. No conjunctival pallor. Normocephalic, atraumatic. No pharyngeal erythema. No thyromegaly. CARDIOVASCULAR: S1 and S2 present. No murmurs, rubs, or gallops. PULMONARY: Chest is clear to auscultation, no wheezing or crackles. ABDOMEN: mild epigastric abdominal tenderness nondistended, normoactive bowel sounds. No palpable organomegaly. MUSCULOSKELETAL: No joint swelling or deformity. EXTREMITIES: No cyanosis, clubbing, or pedal edema. NEUROLOGICAL: Gross neurological examination did not reveal any focal deficits. SKIN: No rashes. Results CBC & Chem 7: 04/15/20 09:30 04/15/20 09:30 Labs: Abnormal Lab Results - Last 24 Hours (Table) 04/14/20 04/14/20 04/14/20 Range/Units 21:21 21:21 21:21 RBC 3.69 L (3.80-5.40) m/uL Hgb (11.4-16.0) gm/dL MCV 102.7 H (80.0-100.0) fL MCHC (31.0-37.0) g/dL Chloride (98-107) mmol/L BUN 22 H (7-17) mg/dL Glucose 105 H (74-99) mg/dL Calcium (8.4-10.2) mg/dL AST 38 H (14-36) U/L ALT 38 H (4-34) U/L Total Protein (6.3-8.2) g/dL Albumin (3.5-5.0) g/dL Amylase 1587 H* (30-110) U/L Lipase 99067 H (23-300) U/L Urine Protein Trace H (Negative) Ur Leukocyte Esterase Small H (Negative) Urine WBC 6 H (0-5) /hpf Urine Bacteria Rare H (None) /hpf Urine Mucus Rare H (None) /hpf 04/15/20 04/15/20 Range/Units 09:30 09:30 RBC 3.24 L (3.80-5.40) m/uL Hgb 10.5 L (11.4-16.0) gm/dL MCV 106.6 H (80.0-100.0) fL MCHC 30.5 L (31.0-37.0) g/dL Chloride 112 H (98-107) mmol/L BUN (7-17) mg/dL Glucose (74-99) mg/dL Calcium 8.2 L (8.4-10.2) mg/dL AST 198 H (14-36) U/L ALT 130 H (4-34) U/L Total Protein 5.4 L (6.3-8.2) g/dL Albumin 3.0 L (3.5-5.0) g/dL Amylase 552 H* (30-110) U/L Lipase 2177 H (23-300) U/L Urine Protein (Negative) Ur Leukocyte Esterase (Negative) Urine WBC (0-5) /hpf Urine Bacteria (None) /hpf Urine Mucus (None) /hpf Thrombosis Risk Factor Assmnt - Choose All That Apply Any of the Below Risk Factors Present?: No Each Risk Factor Represents 3 Points: Age 75 years or older Thrombosis Risk Factor Assessment Total Risk Factor Score: 3 Thrombosis Risk Factor Assessment Level: Moderate Risk Assessment and Plan Plan: -acute pancreatitis: Postprocedural pancreatitis, patient is status post endoscopic ultrasound and biopsy of the pancreas yesterday. Patient's lightheadedness is expected to improve. Patient will remain nothing by mouth and will be evaluated by gastroenterology. -elevated liver enzymes secondary to pancreatitis we'll repeat liver enzymes tomorrow -gastroesophageal reflux disease -Rheumatoid arthritis for which patient on methotrexate which will be resumed -hyperlipidemia DVT prophylaxis with subcutaneous with Lovenox
[2020-04-15] MEDS: DICYCLOMINE 10 MG CAP PO SCH ×2 (16:03→20:29)
[2020-04-15] MEDS: SODIUM CHLORIDE 0.9% 1,000 ML IV SCH (16:48)
[2020-04-15] MEDS: BACLOFEN 10 MG TAB PO SCH (20:29)
[2020-04-15] MEDS: polyethylene glycoL 3350 17 GM POWD.PACK PO SCH (20:30)
[2020-04-15] MEDS ORDERED: ATORVASTATIN 40 MG TAB PO SCH (21:00)
--- NOTE | 2020-04-15 22:14 | CONS ---
CONSULTATION DATE OF SERVICE: April 15, 2020. REASON FOR CONSULTATION: Post EUS pancreatitis. HISTORY OF PRESENT ILLNESS: The patient is a 80-year-old pleasant white female who underwent endoscopic ultrasound of the pancreas with pancreatic biopsy of the cyst at [facility] yesterday afternoon. On her way back from [facility], she started having severe epigastric pain associated with nausea, vomiting. She came straight to the emergency room and subsequently was noted to have elevated lipase consistent with acute post EUS pancreatitis. The patient admitted to the hospital for further evaluation. This morning she states that the epigastric pain is somewhat better but still has significant pain with nausea, vomiting. No fever, chills, or night sweats. Endoscopic ultrasound of the pancreas revealed a 3.5 cm cystic lesion in the head of the pancreas with mucinous showed status post aspiration/biopsy. PAST MEDICAL HISTORY: Significant for GERD, degenerative joint disease, rheumatoid arthritis, cyst in the pancreas for which she underwent EUS. PAST SURGICAL HISTORY: Cholecystectomy, bilateral knee replacement, multiple colonoscopies in the past, bilateral cataract surgery. Varicose vein stripping, panniculectomy, lithotripsy, right ureteral stent placement. FAMILY HISTORY: Mother had coronary artery disease. Father has IBS. MEDICATIONS: Medications at home include: Maxalt, Aricept, aspirin, , folic acid, Bentyl, methotrexate, baclofen, Lipitor, omeprazole, Xanax, and Effexor. ALLERGIES: TO LODINE, RELAFEN, NAPROXEN, NSAIDS, AND . REVIEW OF SYSTEMS: CARDIOPULMONARY: She denies any chest pain or shortness of breath. no dysuria or hematuria. MUSCULOSKELETAL: Chronic low back pain. NEUROLOGY: Severe migraine headaches. ENT/VISION: Unremarkable. CONSTITUTIONAL: No recent weight loss. No fever, chills, night sweats. NEUROLOGY: Mild dementia. PSYCHIATRIC: Unremarkable. ENDOCRINE unremarkable. HEMATOLOGY unremarkable. PHYSICAL EXAMINATION: She appears comfortable. No apparent distress. Vital signs stable. Blood pressure is 148/64, pulse rate 85, temperature 98.6. HEENT examination unremarkable. Conjunctivae pink. Sclerae anicteric. Oral cavity no lesions. NECK: No JVD or lymph node enlargement. CHEST clear to auscultation. HEART: Regular rate and rhythm. ABDOMEN: Soft, severe tenderness in the epigastric area. Rest of the abdomen was benign. Bowel sounds are positive. EXTREMITIES: No pedal edema. SKIN: No rashes. NEUROLOGIC: Alert and oriented x3. No focal deficits. LABS: WBC 9.1, hemoglobin 12, platelets normal. Basic metabolic panel is within normal limits. Lipase is 19,742. Amylase is 587. ALT and AST are 38 and 40 respectively. Repeat labs today lipase is down to 2177, amylase 552. ALT and AST went up to 198 and 130 respectively. T-bilirubin and alk phos are within normal limits. IMPRESSION: 1. Post EUS (pancreatic biopsy done) pancreatitis. The patient underwent EUS of the pancreas for evaluation of 3 cm cystic lesion in the head of the pancreas at [facility] yesterday and following the procedure, she did well. En route home, she developed severe epigastric pain, noted to have elevated amylase and lipase consistent with acute pancreatitis. The symptoms are gradually improving. 2. Mild elevation of serum transaminases, probably related to acute pancreatitis. 3. History of rheumatoid arthritis. 4. Severe migraine. 5. Gastroesophageal reflux disease. RECOMMENDATIONS: 1. Continue with aggressive IV hydration. 2. Keep her n.p.o. except ice chips. 3. Monitor labs closely. 4. Repeat LFTs in the morning. 5. We will follow with you closely. Thank you for this consultation. MMODL / IJN: [id number] /
[2020-04-16] MEDS: HYDROmorphone 1 MG/ML 1 ML SYRINGE IVP PRN (01:08)
[2020-04-16] MEDS: SODIUM CHLORIDE 0.9% 1,000 ML IV SCH (01:09)
[2020-04-16 07:14] LABS: ALT 229 U/L (4-34); AST 311 U/L (14-36); African American GFR (CKD) >90 (>60 ml/min/1.73 sqM); Albumin 2.8 g/dL (3.5-5.0); Alkaline Phosphatase 109 U/L (38-126); Amylase 200 U/L (30-110); Anion Gap 2 mmol/L; Blood Urea Nitrogen 11 mg/dL (7-17); Calcium 8.4 mg/dL (8.4-10.2); Carbon Dioxide 28 mmol/L (22-30); Chloride 107 mmol/L (98-107); Glucose 97 mg/dL (74-99); Lipase 281 U/L (23-300); Non-African American GFR(CKD) 83 (>60 ml/min/1.73 sqM); Potassium 3.9 mmol/L (3.5-5.1); Sodium 137 mmol/L (137-145); Total Bilirubin 1.1 mg/dL (0.2-1.3); Total Protein 5.2 g/dL (6.3-8.2)
[2020-04-16] MEDS: PANTOPRAZOLE 40 MG/10 ML VIAL IVP SCH (07:36)
[2020-04-16 07:47] VITALS: BP 171/55; PULSE 75; RESP 19; TEMP 98.3
[2020-04-16] MEDS: polyethylene glycoL 3350 17 GM POWD.PACK PO SCH (08:25)
[2020-04-16] MEDS: DICYCLOMINE 10 MG CAP PO SCH ×2 (08:26→12:08)
[2020-04-16] MEDS: BACLOFEN 10 MG TAB PO SCH (08:26)
[2020-04-16] MEDS ORDERED: FOLIC ACID 1 MG TAB PO SCH (09:00)
[2020-04-16] MEDS ORDERED: DONEPEZIL 5 MG TAB PO SCH (09:00)
[2020-04-16] MEDS ORDERED: metHOTREXate sodium 2.5 MG TAB PO SCH (09:00)
[2020-04-16] MEDS ORDERED: ASPIRIN 81 MG PO SCH (09:00)
[2020-04-16] MEDS ORDERED: NON FORMULARY DRUG (Omeprazole [Omeprazole] 20 MG) PO SCH (09:00)
[2020-04-16] MEDS ORDERED: VENLAFAXINE HCL ER 150 MG CAP PO SCH (09:00)
[2020-04-16] MEDS ORDERED: ACETAMINOPHEN TAB 325 MG TAB PO PRN (12:41)
--- NOTE | 2020-04-16 14:31 | CDI ---
Documentation Clarification Form Date: 04/16/2020 02:03:02 PM From: Roula Reyna RN CCDS Admit Date: 04/14/2020 10:49:00 PM Patient Name: Monica Carolina Visit Number: [id number] Discharge Date: ATTENTION: The Clinical Documentation Specialists (CDI) and [facility] Coding Staff appreciate your assistance in clarifying documentation. Please respond to the clarification below the line at the bottom and electronically sign. The CDI & [facility] Coding staff will review the response and follow-up if needed. Please note: Queries are made part of the Legal Health Record. If you have any questions, please contact the author of this message via ITS. Dr. America Castle Postprocedural pancreatitis is documented in the H & P 04/15 History/Risk Factors: 80-year-old female presents to the ED with severe abdominal pain with nausea while on the way home from [facility] after having a endoscopic ultrasound with a pancreatic biopsy. Medical History: GERD; Kidney stones, Skin Cancer and Renal disease Clinical Indicators: VSS: 162/72 66 98.3 18 99% ra 04/14 LABS Amylase 1587; Lipase 42212; AST 38; ALT 38; Albumin 6.4, Total Protein 6.4; Alk phos 67 04/15 GI Consult: The patient underwent EUS of the pancreas for evaluation of 3cm cystic lesion in the head of the pancreas at [facility] yesterday and following the procedure, she did well. En route home she developed severe epigastric pain, noted to have elevated amylase and lipase consistent with acute pancreatitis Treatment: 04/15 GI Consult: Post EUS (pancreatic biopsy done) pancreatitis. NPO, except Ice chips, Monitor labs with repeat LFTs 04/14 0.9ns 3L bolus followed by 130cc/hr In order to accurately reflect this patients severity of illness, please clarify if the Acute pancreatitis: -is a complication of the procedure -is an expected outcome of the procedure -is related to co-morbid condition(s) of -Other please specify -Unable to determine (Last Revision: October 2019) is an expected outcome of the procedure MTDD
--- NOTE | 2020-04-17 08:51 | P.DS ---
Providers Date of admission: 04/14/20 22:49 Expected date of discharge: 04/16/20 Attending physician: Jh Garcia Consults: 04/14/20 22:49 Consult Physician Routine Consulting Provider: Suzy Soto Consult Reason/Comments: known Do you want consulting provider notified?: Yes Primary care physician: Jh Garcia [facility] Course: Final diagnosis -acute pancreatitis: Postprocedural pancreatitis, an expected outcome of the procedure -status post endoscopic ultrasound and biopsy of the pancreas yesterday. -elevated liver enzymes secondary to pancreatitis -gastroesophageal reflux disease -Rheumatoid arthritis -hyperlipidemia -DVT prophylaxis Discharge disposition Patient is being discharged in a stable condition with guarded prognosis to home. Patient will follow-up with Dr. Garcia upon discharge. Patient also instructed to follow up with Dr. Soto in 1-2 weeks for results. Total time taken is 35 minutes. History of present illness This is a 59-year-old female who was recently admitted with severe abdominal pain along with nausea and was being closely monitored. Patient was having an endoscopic ultrasound with pancreatic biopsy at [facility] yesterday and experienced severe pain and came to [facility] and was admitted for pancreatitis. Patient was evaluated by GI and currently awaiting results of the biopsy. Patient will follow up on results in the outpatient setting. Patient is now tolerating diet and amylase and lipase have improved. LFTs are still elevated and was provided a script to have them rechecked in a few days. Patient instructed to continue with full liquid diet for a few days and advance slowly as tolerated. Currently no reports of chest pain, palpitations, or shortness. Patient is afebrile. No reports of nausea or vomiting and patient is tolerating diet. On exam vital signs are stable. Temp is 98.3F, pulse is 75, respirations are 19, blood pressure 171/55, oxygen saturation is 95% on room air. Cardio S1, S2 are present. Respiratory shows clear to auscultation. Abdomen is soft and nontender. Nervous system shows no focal deficits. Please refer to medication reconciliation sheet for a list of medications. Patient Condition at Discharge: Fair Plan - Discharge Summary Discharge Rx Participant: No New Discharge Prescriptions: New polyethylene glycoL 3350 [Miralax] 17 gm PO DAILY #20 powd.pack Continue Aspirin 81 mg PO DAILY Certolizumab Pegol [Cimzia] 400 mg SQ Q30D Folic Acid 1 mg PO Q48H rOPINIRole HCL [Requip] 0.5 mg PO BID metHOTREXate sodium [Methotrexate] 20 mg PO FR Dicyclomine [Bentyl] 10 mg PO ACHS Baclofen 10 mg PO TID PRN PRN Reason: Muscle Pain Atorvastatin Calcium [Lipitor] 40 mg PO HS Venlafaxine HCl [Effexor XR] 150 mg PO DAILY Omeprazole 20 mg PO DAILY ALPRAZolam [Xanax] 0.25 mg PO DAILY PRN PRN Reason: Anxiety Rizatriptan Odt [Maxalt SITE ENGINEER] 10 mg PO DAILY PRN PRN Reason: Migraine Headache Donepezil HCl [Aricept] 5 mg PO DAILY Discharge Medication List Aspirin 81 mg PO DAILY 06/17/18 [History] Certolizumab Pegol [Cimzia] 400 mg SQ Q30D 07/01/18 [History] Folic Acid 1 mg PO Q48H 07/01/18 [History] rOPINIRole HCL [Requip] 0.5 mg PO BID 07/01/18 [History] Dicyclomine [Bentyl] 10 mg PO ACHS 10/06/18 [History] metHOTREXate sodium [Methotrexate] 20 mg PO FR 10/06/18 [History] Baclofen 10 mg PO TID PRN 12/19/18 [History] Atorvastatin Calcium [Lipitor] 40 mg PO HS 10/12/19 [History] Omeprazole 20 mg PO DAILY 10/28/19 [History] Venlafaxine HCl [Effexor XR] 150 mg PO DAILY 10/28/19 [History] ALPRAZolam [Xanax] 0.25 mg PO DAILY PRN 04/14/20 [History] Donepezil HCl [Aricept] 5 mg PO DAILY 04/14/20 [History] Rizatriptan Odt [Maxalt SITE ENGINEER] 10 mg PO DAILY PRN 04/14/20 [History] polyethylene glycoL 3350 [Miralax] 17 gm PO DAILY #20 powd.pack 04/16/20 [Rx] Follow up Appointment(s)/Referral(s): Jh Garcia DO [Primary Care Provider] - 1-2 days (office closed at time of discharge. Please call to make appointment) Suzy Soto MD [STAFF PHYSICIAN] - 1 Week (1-3 weeks. Office closed at time of discharge. Please call to make appointment) Ambulatory/Diagnostic Orders: ALT [LAB.AMB] Time Frame: 2 Days, Location: None Selected Amylase [LAB.AMB] Location: None Selected AST [LAB.AMB] Location: None Selected Patient Instructions/Handouts: Pancreatitis (DC), Full Liquid Diet (DC) Activity/Diet/Wound Care/Special Instructions: Activity Limited until follow-up Continue current for liquid diet for the next few days and slowly advance to low fiber diet Follow-up with GI in the outpatient setting Follow-up with primary care provider upon discharge Repeat labs in 2-3 days to monitor liver functions Discharge Disposition: HOME SELF-CARE
== END 2020-04-16 14:56 | disposition home or self-care (01) | DRG 440 ==
LOC: EC 20:38 → 4SSUR 22:49
PROVIDERS: ADMIT Family Medicine; ATTEND Family Medicine
DX: K85.90 Acute pancreatitis without necrosis or infection, unspecified (principal); G43.909 Migraine, unspecified, not intractable, without status migrainosus; E78.5 Hyperlipidemia, unspecified; K21.9 Gastro-esophageal reflux disease without esophagitis; M06.9 Rheumatoid arthritis, unspecified; Z96.653 Presence of artificial knee joint, bilateral; Z79.82 Long term (current) use of aspirin; Z79.899 Other long term (current) drug therapy; Z82.49 Family history of ischemic heart disease and other diseases of the circulatory system; Z86.73 Personal history of transient ischemic attack (TIA), and cerebral infarction without residual deficits; Z87.442 Personal history of urinary calculi; Z88.6 Allergy status to analgesic agent; Z88.8 Allergy status to other drugs, medicaments and biological substances; Z87.440 Personal history of urinary (tract) infections; Z90.49 Acquired absence of other specified parts of digestive tract; Z98.890 Other specified postprocedural states; Z98.42 Cataract extraction status, left eye; Z98.41 Cataract extraction status, right eye
CPT/HCPCS: 36415; 74018; 80053; 81001; 82150; 83605; 83690; 85025; 96361; 96374; 96375; 99285

== ENCOUNTER 2020-04-23 08:00 | Observation (INO) | payer MEDICARE ==
[2020-04-23] MEDS ORDERED: SODIUM CHLORIDE 0.9% 500 ML 500 ML IV STA (08:23)
--- NOTE | 2020-04-23 08:37 | ED ---
General Adult HPI - General Chief complaint: Weakness Stated complaint: Altered Time Seen by Provider: 04/23/20 08:08 Source: patient, RN notes reviewed, old records reviewed Mode of arrival: ambulatory Limitations: no limitations - History of Present Illness Initial comments: 80-year-old female presenting with syncope, and generalized weakness. Patient states she started a new medication yesterday. Her states that this morning she woke and went to the bathroom, and collapsed. She had no associated chest pain. She states she just feels tired. She has been eating and drinking well, no vomiting. There was some associated nausea this morning. No fever. No dysuria or hematuria. No abdominal pain. No chest pain. No headache. No f ocal numbness or weakness. - Related Data Home Medications Medication Instructions Recorded Confirmed Aspirin 81 mg PO DAILY 06/17/18 04/14/20 Certolizumab Pegol [Cimzia] 400 mg SQ Q30D 07/01/18 04/14/20 Folic Acid 1 mg PO Q48H 07/01/18 04/14/20 rOPINIRole HCL [Requip] 0.5 mg PO BID 07/01/18 04/14/20 Dicyclomine [Bentyl] 10 mg PO ACHS 10/06/18 04/14/20 metHOTREXate sodium [Methotrexate] 20 mg PO FR 10/06/18 04/14/20 Baclofen 10 mg PO TID PRN 12/19/18 04/14/20 Atorvastatin Calcium [Lipitor] 40 mg PO HS 10/12/19 04/14/20 Omeprazole 20 mg PO DAILY 10/28/19 04/14/20 Venlafaxine HCl [Effexor XR] 150 mg PO DAILY 10/28/19 04/14/20 ALPRAZolam [Xanax] 0.25 mg PO DAILY PRN 04/14/20 04/14/20 Donepezil HCl [Aricept] 5 mg PO DAILY 04/14/20 04/14/20 Rizatriptan Odt [Maxalt HOME HOUSEKEEPER] 10 mg PO DAILY PRN 04/14/20 04/14/20 Previous Rx's Medication Instructions Recorded polyethylene glycoL 3350 [Miralax] 17 gm PO DAILY #20 powd.pack 04/16/20 Allergies Allergy/AdvReac Type Severity Reaction Status Date / Time cephalexin [From Keflex] Allergy Unknown Verified 04/23/20 08:12 etodolac [From Lodine] Allergy Rash/Hives Verified 04/14/20 23:13 nabumetone [From Relafen] Allergy Rash/Hives Verified 04/14/20 23:13 naproxen [From Naprosyn] Allergy Rash/Hives Verified 04/14/20 23:13 NSAIDS (Non-Steroidal Allergy Rash/Hives Verified 04/14/20 23:13 Anti-Inflamma primidone AdvReac "dizziness" Verified 04/14/20 23:13 Review of Systems ROS Statement: Those systems with pertinent positive or pertinent negative responses have been documented in the HPI. ROS Other: All systems not noted in ROS Statement are negative. Past Medical History Past Medical History: Cancer, CVA/TIA, GERD/Reflux, Osteoarthritis (OA), Pneumonia, Renal Disease, Rheumatoid Arthritis (RA) Additional Past Medical History / Comment(s): Spouse thinks pt may have the very beginnnings of dementia, arthritis in multiple joints, RLS, UTIs, stress headaches, pericardial effusion, pleurisy, Skin cancer on her nose. Cut on L finger. Kidney stones. History of Any Multi-Drug Resistant Organisms: None Reported Past Surgical History: Cholecystectomy, Joint Replacement, Orthopedic Surgery Additional Past Surgical History / Comment(s): Rotator cuff (R); Ric Knee Replacement; Panniculectomy, bilateral legs varicose vein surgery, colonoscopies-normal, bilateral cataract removal, FNA abdominal seroma, cystoscopy/bladder bx/lithotripsy with R ureteral stent., Past Anesthesia/Blood Transfusion Reactions: No Reported Reaction Additional Past Anesthesia/Blood Transfusion Reaction / Comment(s): Pt has received blood after panniculectomy without reaction. Past Psychological History: No Psychological Hx Reported Smoking Status: Never smoker Past Alcohol Use History: None Reported Past Drug Use History: None Reported - Past Family History Mother Family Medical History: Myocardial Infarction (AZ) Additional Family Medical History / Comment(s): Mother at age 69 yrs after having the flu and complicated by a [place]. Father Additional Family Medical History / Comment(s): IBS. Father at age 78yrs. General Exam Limitations: no limitations General appearance: alert, lethargic Head exam: Present: atraumatic, normocephalic Eye exam: Present: normal appearance, PERRL ENT exam: Present: mucous membranes dry Neck exam: Present: normal inspection. Absent: tenderness, meningismus Respiratory exam: Present: normal lung sounds bilaterally. Absent: respiratory distress, wheezes Cardiovascular Exam: Present: regular rate, normal rhythm GI/Abdominal exam: Present: soft, distended. Absent: tenderness, guarding Extremities exam: Present: normal inspection, normal capillary refill. Absent: pedal edema Neurological exam: Present: alert, oriented X3, CN II-XII intact. Absent: motor sensory deficit Psychiatric exam: Present: normal affect, normal mood Skin exam: Present: warm, dry, intact, pallor. Absent: cyanosis, diaphoretic Course Vital Signs 04/23/20 04/23/20 04/23/20 08:03 09:02 09:04 Temperature 97.5 F L Pulse Rate 58 L 31 L 56 L Respiratory 18 18 Rate Blood Pressure 181/73 200/79 O2 Sat by Pulse 95 96 Oximetry EKG Findings - EKG Comments: EKG Findings:: EKG: Sinus bradycardia with a first-degree AV block, right bundle branch block, rate of 52, WV interval 336, QRS duration 156, QTC 470, no ST segment elevation Medical Decision Making - Medical Decision Making 40-year-old female with syncopal episode, generalized weakness. Recent history of pancreatitis as well as just starting a new medication yesterday, zonisamide. Patient only took one dose of this medication. While in the emergency department she does have an episode where she becomes bradycardic, this. To be sinus bradycardia on a monitor rate of 30. EKG did not capture this rhythm. She this was associated with a vomiting episode, likely vasovagal. Heart rate returns to normal, with first-degree AV block. No associated chest pain. I did discuss case with Dr. Garcia who will admit. Echo will be obtained. Patient will be kept on IV hydration. Urinalysis has been ordered these results are pending. Additionally a lipase has been added on given her recent history of pancreatitis, this is also pending at this time. I will place cardiology on consultation for evaluation of syncope. - Lab Data Result diagrams: 04/23/20 08:33 04/23/20 08:33 Lab Results 04/23/20 04/23/20 04/23/20 Range/Units 08:33 08:33 08:33 WBC 5.4 (3.8-10.6) k/uL RBC 3.22 L (3.80-5.40) m/uL Hgb 10.8 L (11.4-16.0) gm/dL Hct 33.3 L (34.0-46.0) % MCV 103.4 H (80.0-100.0) fL MCH 33.4 (25.0-35.0) pg MCHC 32.3 (31.0-37.0) g/dL RDW 13.6 (11.5-15.5) % Plt Count 244 (150-450) k/uL Neutrophils % 70 % Lymphocytes % 20 % Monocytes % 6 % Eosinophils % 2 % Basophils % 0 % Neutrophils # 3.8 (1.3-7.7) k/uL Lymphocytes # 1.1 (1.0-4.8) k/uL Monocytes # 0.3 (0-1.0) k/uL Eosinophils # 0.1 (0-0.7) k/uL Basophils # 0.0 (0-0.2) k/uL Hypochromasia Slight Macrocytosis Slight PT 9.5 (9.0-12.0) sec INR 0.9 (<1.2) APTT 22.7 (22.0-30.0) sec Sodium 140 (137-145) mmol/L Potassium 4.0 (3.5-5.1) mmol/L Chloride 110 H (98-107) mmol/L Carbon Dioxide 26 (22-30) mmol/L Anion Gap 4 mmol/L BUN 23 H (7-17) mg/dL Creatinine 0.82 (0.52-1.04) mg/dL Est GFR (CKD-EPI)AfAm 79 (>60 ml/min/1.73 sqM) Est GFR (CKD-EPI)NonAf 68 (>60 ml/min/1.73 sqM) Glucose 145 H (74-99) mg/dL Plasma Lactic Acid Hebert (0.7-2.0) mmol/L Calcium 9.0 (8.4-10.2) mg/dL Magnesium 2.3 (1.6-2.3) mg/dL Total Bilirubin 0.6 (0.2-1.3) mg/dL AST 27 (14-36) U/L ALT 38 H (4-34) U/L Alkaline Phosphatase 98 (38-126) U/L Troponin I (0.000-0.034) ng/mL Total Protein 6.2 L (6.3-8.2) g/dL Albumin 3.4 L (3.5-5.0) g/dL 04/23/20 04/23/20 Range/Units 08:33 08:35 WBC (3.8-10.6) k/uL RBC (3.80-5.40) m/uL Hgb (11.4-16.0) gm/dL Hct (34.0-46.0) % MCV (80.0-100.0) fL MCH (25.0-35.0) pg MCHC (31.0-37.0) g/dL RDW (11.5-15.5) % Plt Count (150-450) k/uL Neutrophils % % Lymphocytes % % Monocytes % % Eosinophils % % Basophils % % Neutrophils # (1.3-7.7) k/uL Lymphocytes # (1.0-4.8) k/uL Monocytes # (0-1.0) k/uL Eosinophils # (0-0.7) k/uL Basophils # (0-0.2) k/uL Hypochromasia Macrocytosis PT (9.0-12.0) sec INR (<1.2) APTT (22.0-30.0) sec Sodium (137-145) mmol/L Potassium (3.5-5.1) mmol/L Chloride (98-107) mmol/L Carbon Dioxide (22-30) mmol/L Anion Gap mmol/L BUN (7-17) mg/dL Creatinine (0.52-1.04) mg/dL Est GFR (CKD-EPI)AfAm (>60 ml/min/1.73 sqM) Est GFR (CKD-EPI)NonAf (>60 ml/min/1.73 sqM) Glucose (74-99) mg/dL Plasma Lactic Acid Hebert 0.6 L (0.7-2.0) mmol/L Calcium (8.4-10.2) mg/dL Magnesium (1.6-2.3) mg/dL Total Bilirubin (0.2-1.3) mg/dL AST (14-36) U/L ALT (4-34) U/L Alkaline Phosphatase (38-126) U/L Troponin I <0.012 (0.000-0.034) ng/mL Total Protein (6.3-8.2) g/dL Albumin (3.5-5.0) g/dL Disposition Clinical Impression: Anemia, Dehydration, Syncope Disposition: ADMITTED IP TO THIS [facility] Condition: Stable Is patient prescribed a controlled substance at d/c from ED?: No Referrals: Jh Garcia DO [Primary Care Provider] - 1-2 days Decision to Admit Reason: Admit from EC Decision Date: 04/23/20 Decision Time: 09:53
[2020-04-23 08:51] LABS: Basophils % (A) 0 %; Eosinophils # (A) 0.1 k/uL (0-0.7); Eosinophils % (A) 2 %; HCT 33.3 % (34.0-46.0); HGB 10.8 gm/dL (11.4-16.0); Hypochromasia Slight; Lymphocytes # (A) 1.1 k/uL (1.0-4.8); Lymphocytes % (A) 20 %; MCH 33.4 pg (25.0-35.0); MCHC 32.3 g/dL (31.0-37.0); MCV 103.4 fL (80.0-100.0); Macrocytosis Slight; Mean Platelet Volume 7.4; Monocytes # (A) 0.3 k/uL (0-1.0); Monocytes % (A) 6 %; Neutrophils # (A) 3.8 k/uL (1.3-7.7); Neutrophils % (A) 70 %; Platelet Count 244 k/uL (150-450); RBC 3.22 m/uL (3.80-5.40); RDW 13.6 % (11.5-15.5); WBC 5.4 k/uL (3.8-10.6)
[2020-04-23] MEDS ORDERED: METOCLOPRAMIDE 5 MG/ML 2 ML VIAL IVP STA (08:58)
[2020-04-23 09:02] LABS: Albumin 3.4 g/dL (3.5-5.0); Magnesium 2.3 mg/dL (1.6-2.3); Total Bilirubin 0.6 mg/dL (0.2-1.3); Total Protein 6.2 g/dL (6.3-8.2)
[2020-04-23 09:05] LABS: INR 0.9 (<1.2); Partial Thromboplastin Time 22.7 sec (22.0-30.0); Prothrombin Time 9.5 sec (9.0-12.0)
--- NOTE | 2020-04-23 09:06 | XR ---
EXAMINATION TYPE: XR chest 2V DATE OF EXAM: 04/23/2020 CLINICAL HISTORY: Weakness. TECHNIQUE: Frontal and lateral views of the chest are obtained. COMPARISON: 10/28/2019 chest radiograph FINDINGS: Heart size normal. The mediastinal silhouette is within normal limits for size. Pulmonary v asculature is normal. There is no focal air space opacity, pleural effusion, or pneumothorax seen. Th e osseous structures are intact. IMPRESSION: No acute cardiopulmonary process.
--- NOTE | 2020-04-23 09:09 | CT ---
EXAMINATION TYPE: CT brain wo con DATE OF EXAM: 04/23/2020 HISTORY: Altered mental status. Weakness. CT DLP: 1142.4 mGycm. Automated Exposure Control for Dose Reduction was Utilized. TECHNIQUE: CT scan of the head is performed without contrast. COMPARISON: CT brain 10/28/2019 FINDINGS: There is no acute intracranial hemorrhage, midline shift, or mass effect identified. Generalized volu me loss. Patchy periventricular white matter hypodensities likely sequela of chronic microvascular is chemic change. The ventricles, sulci, and cisterns are normal in size and configuration concordant with volume loss. No extra-axial fluid collection. Bones and extracranial soft tissues are intact. The globes are gross ly symmetric. Visualized sinuses and mastoid air cells are clear. IMPRESSION: No acute intracranial hemorrhage, midline shift, or mass effect.
[2020-04-23] MEDS ORDERED: NALOXONE 0.4 MG/ML 1 ML VIAL IV PRN (09:49)
[2020-04-23] MEDS: SODIUM CHLORIDE 0.9% 1,000 ML IV SCH ×2 (10:02→21:21)
[2020-04-23 10:14] LABS: Amorphous Sediment,Urine Rare /hpf; Appearance,Urine Cloudy (Clear); Bacteria,Urine Rare /hpf; Bilirubin,Urine Negative (Negative); Blood,Urine Negative (Negative); Color,Urine Light Yellow; Glucose,Urine (UA) Negative (Negative); Hyaline Casts,Urine 1 /lpf (0-2); Ketones,Urine Negative (Negative); Leukocyte Esterase,Urine Large (Negative); Nitrite,Urine Negative (Negative); Protein,Urine Trace (Negative); RBC,Urine 1 /hpf (0-5); Specific Gravity,Urine 1.013 (1.001-1.035); Squamous Epithelial Cell,Urine 2 /hpf (0-4); Urobilinogen,Urine <2.0 mg/dL (<2.0); WBC,Urine 17 /hpf (0-5)
--- NOTE | 2020-04-23 11:56 | ECHOF ---
Referral Reason:syncope MEASUREMENTS -------- HEIGHT: 170.2 cm WEIGHT: 68.0 kg BP: RVIDd: 3.7 cm (< 3.3) IVSd: 1.3 cm (0.6 - 1.1) LVIDd: 4.2 cm (3.9 - 5.3) LVPWd: 1.6 cm (0.6 - 1.1) EDV(Teich): 78 ml IVSs: 1.6 cm LVIDs: 3.0 cm LVPWs: 1.5 cm %IVS Thck: 26 % ESV(Teich): 36 ml EF(Teich): 54 % %FS: 28 % SV(Teich): 42 ml LA Diam: 3.8 cm (2.7 - 3.8) LALs A4C: 4.8 cm LAAs A4C: 16.8 cm LAESV A-L A4C: 50 ml LAESV MOD A4C: 48 ml Ao Diam: 2.8 cm (2.0 - 3.7) AV Cusp: 1.5 cm (1.5 - 2.6) MV EXCURSION: 10.412 mm (> 18.000) MV EF SLOPE: 46 mm/s (70 - 150) EPSS: 0.2 cm MV E Shahbaz: 0.50 m/s MV DecT: 181 ms MV Dec Starr: 2.8 m/s MV A Shahbaz: 0.71 m/s MV E/A Ratio: 0.71 MV PHT: 52 ms TR Vmax: 2.05 m/s TR maxP.84 mmHg RAP: 5.00 mmHg RVSP: 21.84 mmHg FINDINGS -------- This was a technically good study. LV size, wall thickness and systolic function are normal, with an EF greater than 55%. The left maribell tricular size is normal. The right ventricle is normal in size. The left atrial size is normal. The right atrial size is normal. There is mild aortic valve sclerosis. There is no evidence of aortic regurgitation. Mild mitral regurgitation is present. Mild tricuspid regurgitation present. Right ventricular systolic pressure is normal at < 35 mmHg. Trace/mild (physiologic) pulmonic regurgitation. The aortic root size is normal. There is no pericardial effusion. CONCLUSIONS -------- 1. LV size, wall thickness and systolic function are normal, with an EF greater than 55%. 2. The left ventricular size is normal. 3. The right ventricle is normal in size. 4. The left atrial size is normal. 5. The right atrial size is normal. 6. There is mild aortic valve sclerosis. 7. Mild mitral regurgitation is present. 8. Mild tricuspid regurgitation present. 9. Trace/mild (physiologic) pulmonic regurgitation. LIQUOR COMMISSIONER: Jaleesa Reyes RDCS
--- NOTE | 2020-04-23 13:51 | P.CRDCN ---
History of Present Illness History of present illness: HISTORY OF PRESENTING ILLNESS This is a pleasant 80-year-old female past medical history significant for dyslipidemia. She follows in the office with Dr. Napier. We have been asked to see in consultation for syncope. She presented to the emergency department secondary to generalized weakness, syncope and altered mental status. She woke up this morning to use the restroom. He was at this time she had a syncopal spell and woke up on the floor. She is somewhat of a poor historian. Most information is obtained from the medical record and nursing staff. She did have episode of nausea and vomiting at which time telemetry tracings indicate her heart rate dropped into the 40s. This occurred while she was vomiting. She denies chest pain, dizziness or palpitations at the time of my exam. She sees Dr. Dumas in the office regularly and has been evaluated for dizziness in the past. She had a Lexiscan stress test March 2019 was negative for reversible ischemia. Most recent echocardiogram in the office December 2018 revealed preserved LV systolic function with ejection fraction 60-65% with mild mitral regurgitation and mild tricuspid regurgitation. She were 30 day event monitor that was predominantly sinus rhythm with an episode of Wenckebach at night while sleeping. DIAGNOSTICS EKG reveals sinus bradycardia heart rate 52 with a first-degree AV block and rig ht bundle branch block. Chest xray negative for acute cardiopulmonary process. CT of the brain is unremarkable. Laboratory reviewed, WBC 5.4, hemoglobin 10.8, platelets 244, sodium 140, potassium 4.0, creatinine 0.82, magnesium 2.3, cardiac enzymes negative 1. Current cardiac medications include aspirin 81 mg daily and atorvastatin 40 mg at bedtime. REVIEW OF SYSTEMS At the time of my exam: CONSTITUTIONAL: Denies fever or chills. CARDIOVASCULAR: Denies chest pain, shortness of breath, orthopnea, PND or palpitations. RESPIRATORY: Denies cough. GASTROINTESTINAL: Denies abdominal pain, diarrhea, constipation, nausea or vomiting. MUSCULOSKELETAL: Denies myalgias. NEUROLOGIC: Denies numbness, tingling or weakness. ENDOCRINE: Denies fatigue, weight change, polydipsia or polyurina. GENITOURINARY: Denies burning, hematuria or urgency with micturation. HEMATOLOGIC: Denies history of anemia or bleeding. PHYSICAL EXAMINATION Blood pressure 140/68 heart rate 62 afebrile and maintaining oxygen saturation on room air. CONSTITUTIONAL: No apparent distress. HEENT: Head is normocephalic. Pupils are equal, round. Sclerae anicteric. Mucous membranes of the mouth are moist. No JVD. No carotid bruit. CHEST EXAMINATION: Lungs are clear to auscultation. No chest wall tenderness is noted on palpation or with deep breathing. HEART EXAMINATION: Regular rate and rhythm. S1, S2 heard. No murmurs, gallops or rub. ABDOMEN: Soft, nontender. Positive bowel sounds. EXTREMITIES: 2+ peripheral pulses, no lower extremity edema and no calf tenderness. NEUROLOGIC EXAMINATION: Patient is awake, alert and oriented x3. ASSESSMENT Syncope, vasovagal Recent diagnosis of pancreatitis Dyslipidemia Altered mental status PLAN Syncope and bradycardia secondary to vasovagal reaction. Avoid rate lowering m edications. Ongoing medical management. No further cardiac workup needed at this time. We will follow along as needed, following the office with Dr. Napier upon discharge. Thank you kindly for this consultation. Nurse Practitioner note has been reviewed, I agree with a documented findings an d plan of care. Patient was seen and examined. Past Medical History Past Medical History: Cancer, CVA/TIA, GERD/Reflux, Hyperlipidemia, Osteoarthritis (OA), Pneumonia, Renal Disease, Rheumatoid Arthritis (RA) Additional Past Medical History / Comment(s): Pt recently admitted to [facility] [place] on 04/14/20 with acute pancreatitis, recent U/s and biopsy of pancreas at [facility] and spouse states no cancer but large growth-to see pancreatic specialist, elevated LFT, possible past acute pancreatitis, iron anemia, nephrolithiasis with surgery, UTIs, pt being worked up for possible dementia, skin cancer removed from nose, UTIs, migraines, RLS, generalized pain d/t RA/OA, constipation, past ileus, IBS. History of Any Multi-Drug Resistant Organisms: None Reported Past Surgical History: Breast Surgery, Cholecystectomy, Hernia Repair, Joint Replacement, Orthopedic Surgery Additional Past Surgical History / Comment(s): Rotator cuff (R); Ric Knee Replacement; Panniculectomy, lizzie fundoplication/repair paraesophageal hernia, bilateral legs varicose vein surgery, colonoscopies-normal, bilateral cataract removal, FNA abdominal seroma, cystoscopy/bladder bx/lithotripsy with R ureteral stent, skin cancer removal, bilateral benign breast biopsies, bilateral feet/toe surgeries/4th R toe amp Past Anesthesia/Blood Transfusion Reactions: No Reported Reaction Additional Past Anesthesia/Blood Transfusion Reaction / Comment(s): Pt has received blood after panniculectomy without reaction. Smoking Status: Never smoker - Past Family History Mother Family Medical History: Myocardial Infarction ([place]) Additional Family Medical History / Comment(s): Mother at age 69 yrs after having the flu and complicated by a [place]. Father Additional Family Medical History / Comment(s): IBS. Father at age 78yrs. Medications and Allergies Home Medications Medication Instructions Recorded Confirmed Type Aspirin 81 mg PO DAILY 06/17/18 04/23/20 History Folic Acid 1 mg PO Q48H 07/01/18 04/23/20 History rOPINIRole HCL [Requip] 0.5 mg PO BID 07/01/18 04/23/20 History metHOTREXate sodium [Methotrexate] 20 mg PO FR 10/06/18 04/23/20 History Atorvastatin Calcium [Lipitor] 40 mg PO HS 10/12/19 04/23/20 History Omeprazole 20 mg PO DAILY 10/28/19 04/23/20 History Venlafaxine HCl [Effexor XR] 150 mg PO DAILY 10/28/19 04/23/20 History ALPRAZolam [Xanax] 0.25 mg PO DAILY PRN 04/14/20 04/23/20 History Donepezil HCl [Aricept] 5 mg PO DAILY 04/14/20 04/23/20 History Rizatriptan Odt [Maxalt YARDMASTER] 10 mg PO DAILY PRN 04/14/20 04/23/20 History polyethylene glycoL 3350 [Miralax] 17 gm PO DAILY #20 powd.pack 04/16/20 04/23/20 Rx Baclofen [Lioresal] 10 mg PO TID PRN 04/23/20 04/23/20 History Certolizumab Pegol [Cimzia] 400 mg SQ Q30D 04/23/20 04/23/20 History Dicyclomine [Bentyl] 10 mg PO ACHS 04/23/20 04/23/20 History Meclizine [Antivert] 25 mg PO TID PRN 04/23/20 04/23/20 History Zonisamide [Zonegran] See Taper PO DIRECTED 04/23/20 04/23/20 History Allergies Allergy/AdvReac Type Severity Reaction Status Date / Time cephalexin [From Keflex] Allergy Unknown Verified 04/23/20 10:30 etodolac [From Lodine] Allergy Rash/Hives Verified 04/23/20 10:30 nabumetone [From Relafen] Allergy Rash/Hives Verified 04/23/20 10:30 naproxen [From Naprosyn] Allergy Rash/Hives Verified 04/23/20 10:30 NSAIDS (Non-Steroidal Allergy Rash/Hives Verified 04/23/20 10:30 Anti-Inflamma primidone AdvReac "dizziness" Verified 04/23/20 10:30 Physical Exam Vitals: Vital Signs Temp Pulse Resp BP Pulse Ox 04/23/20 11:18 62 14 140/68 96 04/23/20 10:30 55 L 18 170/71 98 04/23/20 09:30 52 L 16 135/64 96 04/23/20 09:04 56 L 18 200/79 96 04/23/20 09:02 31 L 04/23/20 08:03 97.5 F L 58 L 18 181/73 95 Intake and Output 04/22/20 04/23/20 04/23/20 22:59 06:59 14:59 Other: Weight 68.039 kg Results 04/23/20 08:33 04/23/20 08:33 Cardiac Enzymes 04/23/20 04/23/20 Range/Units 08:33 08:35 AST 27 (14-36) U/L Troponin I <0.012 (0.000-0.034) ng/mL Coagulation 04/23/20 Range/Units 08:33 PT 9.5 (9.0-12.0) sec APTT 22.7 (22.0-30.0) sec CBC 04/23/20 Range/Units 08:33 WBC 5.4 (3.8-10.6) k/uL RBC 3.22 L (3.80-5.40) m/uL Hgb 10.8 L (11.4-16.0) gm/dL Hct 33.3 L (34.0-46.0) % Plt Count 244 (150-450) k/uL Comprehensive Metabolic Panel 04/23/20 Range/Units 08:33 Sodium 140 (137-145) mmol/L Potassium 4.0 (3.5-5.1) mmol/L Chloride 110 H (98-107) mmol/L Carbon Dioxide 26 (22-30) mmol/L BUN 23 H (7-17) mg/dL Creatinine 0.82 (0.52-1.04) mg/dL Glucose 145 H (74-99) mg/dL Calcium 9.0 (8.4-10.2) mg/dL AST 27 (14-36) U/L ALT 38 H (4-34) U/L Alkaline Phosphatase 98 (38-126) U/L Total Protein 6.2 L (6.3-8.2) g/dL Albumin 3.4 L (3.5-5.0) g/dL Current Medications Generic Name Dose Route Start Last Admin Trade Name Freq PRN Reason Stop Dose Admin Sodium Chloride 1,000 mls @ 100 mls/hr 04/23/20 10:00 04/23/20 10:02 Saline 0.9% IV 100 mls/hr .Q10H MARIAA Administration Naloxone HCl 0.2 mg 04/23/20 09:49 Narcan IV Q2M PRN Opioid Reversal Intake and Output 04/22/20 04/23/20 04/23/20 22:59 06:59 14:59 Other: Weight 68.039 kg Patient Weight 04/24/20 06:59 Weight 68.039 kg 04/23/20 08:33 04/23/20 08:33
[2020-04-23] MEDS ORDERED: hydrALAZINE HCL 20 MG/ML 1 ML VIAL IVP STA (20:34)
[2020-04-23] MEDS ORDERED: SUMAtriptan succinate 50 MG TAB PO PRN (20:36)
[2020-04-23] MEDS ORDERED: ALPRAZolam 0.25 MG TAB PO PRN (20:36)
[2020-04-23] MEDS ORDERED: MECLIZINE 25 MG TAB PO PRN (20:36)
[2020-04-23] MEDS: lisinopriL 10 MG TAB PO SCH (20:51)
[2020-04-24] MEDS: DICYCLOMINE 10 MG CAP PO SCH ×5 (00:06→21:45)
[2020-04-24] MEDS: ATORVASTATIN 40 MG TAB PO SCH ×2 (00:07→21:45)
[2020-04-24] MEDS ORDERED: ACETAMINOPHEN TAB 325 MG TAB PO STA (06:49)
[2020-04-24] MEDS: DONEPEZIL 5 MG TAB PO SCH (08:57)
[2020-04-24] MEDS: FOLIC ACID 1 MG TAB PO SCH (08:57)
[2020-04-24] MEDS: ASPIRIN 81 MG PO SCH (08:57)
[2020-04-24] MEDS: lisinopriL 10 MG TAB PO SCH (08:57)
[2020-04-24] MEDS: polyethylene glycoL 3350 17 GM POWD.PACK PO SCH (08:58)
[2020-04-24] MEDS: VENLAFAXINE HCL ER 150 MG CAP PO SCH (08:58)
[2020-04-24] MEDS: PANTOPRAZOLE 40 MG TABLET PO SCH (08:58)
--- NOTE | 2020-04-24 13:22 | P.HPIM ---
History of Present Illness On-call hospitalist start covering Dr. Garcia on 04/24-04/25. Dr. Garcia will resume the care of the patient on 04/26 this is a pleasant 80 years old female with past medical history of CVA /TIA, GERD, hyperlipidemia, osteoarthritis, rheumatoid arthritis. She presents because of fall and dizziness. Patient developed diarrhea for 1-2 days and she stopped her MiraLAX , however she got a little bit confused and generally weak , she went to see her neurologist Dr. Moy home she has an appointment with him and he prescribed her zonisamide for shakiness in her hand , at that time her diarrhea was stopped but she still failed and well and as she was trying to get the restroom yesterday she fell on the floor with possible losing consciousness and she needed help by her to get her up. Vitas looks stable. Labs including CBC and BMP and liver enzymes were unremarkable. Urine analysis looks concentrated sample and suspicious for infection however patient denies any symptoms of UTI like no dysuria or increased frequency. Her urine culture is negative and she has no fever and no leukocytosis. Patient has been evaluated by consulting database administrator and they think it is vaso-vagal syncope. however patient regarding her consciousness and she is back to her usual self. As per patient and at bedside patient denies any headache, no blurred vision, no slurred speech, no weakness or numbness in her extremities. also no chest pain or dyspnea and patient is back to her normal self today However we'll keep the patient and monitoring for 24 hours . At baseline patient works using her walker Review of Systems CONSTITUTIONAL: No fever, no malaise, no fatigue. HEENT: No recent visual problems or hearing problems. Denied any sore throat. CARDIOVASCULAR: No orthopnea, PND, no palpitations, no syncope. PULMONARY: No shortness of breath, no cough, no hemoptysis. GASTROINTESTINAL: No diarrhea, no nausea, no vomiting, no abdominal pain. Normoactive bowel sounds. NEUROLOGICAL: No headaches, no weakness, no numbness. HEMATOLOGICAL: Denies any bleeding or petechiae. GENITOURINARY: Denies any burning micturition, frequency, or urgency. MUSCULOSKELETAL/RHEUMATOLOGICAL: Denies any joint pain, swelling, or any muscle pain. ENDOCRINE: Denies any polyuria or polydipsia. Past Medical History Past Medical History: Cancer, CVA/TIA, GERD/Reflux, Hyperlipidemia, Osteoarthritis (OA), Pneumonia, Renal Disease, Rheumatoid Arthritis (RA) Additional Past Medical History / Comment(s): Pt recently admitted to [facility] on 04/14/20 with acute pancreatitis, recent U/s and biopsy of pancreas at [facility] and spouse states no cancer but large growth-to see pancreatic specialist, elevated LFT, possible past acute pancreatitis, iron anemia, nephrolithiasis with surgery, UTIs, pt being worked up for possible dementia, skin cancer removed from nose, UTIs, migraines, RLS, generalized pain d/t RA/OA, constipation, past ileus, IBS. History of Any Multi-Drug Resistant Organisms: None Reported Past Surgical History: Breast Surgery, Cholecystectomy, Hernia Repair, Joint Replacement, Orthopedic Surgery Additional Past Surgical History / Comment(s): Rotator cuff (R); Ric Knee Replacement; Panniculectomy, lizzie fundoplication/repair paraesophageal hernia, bilateral legs varicose vein surgery, colonoscopies-normal, bilateral cataract removal, FNA abdominal seroma, cystoscopy/bladder bx/lithotripsy with R ureteral stent, skin cancer removal, bilateral benign breast biopsies, bilateral feet/toe surgeries/4th R toe amp Past Anesthesia/Blood Transfusion Reactions: No Reported Reaction Additional Past Anesthesia/Blood Transfusion Reaction / Comment(s): Pt has received blood after panniculectomy without reaction. Smoking Status: Never smoker - Past Family History Mother Family Medical History: Myocardial Infarction ([place]) Additional Family Medical History / Comment(s): Mother at age 69 yrs after having the flu and complicated by a [place]. Father Additional Family Medical History / Comment(s): IBS. Father at age 78yrs. Medications and Allergies Home Medications Medication Instructions Recorded Confirmed Type Aspirin 81 mg PO DAILY 06/17/18 04/23/20 History Folic Acid 1 mg PO Q48H 07/01/18 04/23/20 History rOPINIRole HCL [Requip] 0.5 mg PO BID 07/01/18 04/23/20 History metHOTREXate sodium [Methotrexate] 20 mg PO FR 10/06/18 04/23/20 History Atorvastatin Calcium [Lipitor] 40 mg PO HS 10/12/19 04/23/20 History Omeprazole 20 mg PO DAILY 10/28/19 04/23/20 History Venlafaxine HCl [Effexor XR] 150 mg PO DAILY 10/28/19 04/23/20 History ALPRAZolam [Xanax] 0.25 mg PO DAILY PRN 04/14/20 04/23/20 History Donepezil HCl [Aricept] 5 mg PO DAILY 04/14/20 04/23/20 History Rizatriptan Odt [Maxalt ESTIMATION MANAGER] 10 mg PO DAILY PRN 04/14/20 04/23/20 History polyethylene glycoL 3350 [Miralax] 17 gm PO DAILY #20 powd.pack 04/16/20 04/23/20 Rx Baclofen [Lioresal] 10 mg PO TID PRN 04/23/20 04/23/20 History Certolizumab Pegol [Cimzia] 400 mg SQ Q30D 04/23/20 04/23/20 History Dicyclomine [Bentyl] 10 mg PO ACHS 04/23/20 04/23/20 History Meclizine [Antivert] 25 mg PO TID PRN 04/23/20 04/23/20 History Zonisamide [Zonegran] See Taper PO DIRECTED 04/23/20 04/23/20 History Allergies Allergy/AdvReac Type Severity Reaction Status Date / Time cephalexin [From Keflex] Allergy Unknown Verified 04/23/20 10:30 etodolac [From Lodine] Allergy Rash/Hives Verified 04/23/20 10:30 nabumetone [From Relafen] Allergy Rash/Hives Verified 04/23/20 10:30 naproxen [From Naprosyn] Allergy Rash/Hives Verified 04/23/20 10:30 NSAIDS (Non-Steroidal Allergy Rash/Hives Verified 04/23/20 10:30 Anti-Inflamma primidone AdvReac "dizziness" Verified 04/23/20 10:30 Physical Exam Vitals: Vital Signs Temp Pulse Pulse Resp BP BP Pulse Ox 04/24/20 07:57 98.1 F 74 18 140/65 98 04/24/20 03:00 97.3 F L 68 17 159/59 96 04/24/20 00:17 97.8 F 78 16 167/72 04/23/20 23:25 147/66 04/23/20 22:24 74 16 180/79 95 04/23/20 21:10 56 L 16 225/90 99 04/23/20 19:30 97.3 F L 62 16 211/95 99 04/23/20 19:10 16 04/23/20 18:57 16 04/23/20 18:55 98.1 F 56 L 16 167/69 04/23/20 18:07 99.0 F 04/23/20 18:00 50 L 13 172/71 97 04/23/20 17:30 54 L 16 194/70 97 04/23/20 17:00 48 L 11 L 139/68 97 04/23/20 16:30 52 L 13 139/65 95 04/23/20 16:00 52 L 14 167/67 97 04/23/20 15:30 49 L 11 L 186/77 97 04/23/20 15:06 86 16 186/77 99 04/23/20 15:00 54 L 12 202/78 04/23/20 14:30 55 L 6 L 177/90 04/23/20 14:00 54 L 16 182/83 04/23/20 13:30 51 L 8 L 170/69 100 Intake and Output 04/23/20 04/24/20 04/24/20 22:59 06:59 14:59 Intake Total 240 Output Total 3 1 Balance 240 -3 -1 Intake: Oral 240 Output: Stool 3 1 Other: Voiding Method Toilet Toilet Toilet # Voids 1 1 1 GENERAL: The patient is alert and oriented x3, not in any acute distress. Well developed, well nourished. HEENT: Pupils are round and equally reacting to light. EOMI. No scleral icterus. No conjunctival pallor. Normocephalic, atraumatic. No pharyngeal erythema. No thyromegaly. CARDIOVASCULAR: S1 and S2 present. No murmurs, rubs, or gallops. PULMONARY: Chest is clear to auscultation, no wheezing or crackles. ABDOMEN: Soft, nontender, nondistended, normoactive bowel sounds. No palpable organomegaly. MUSCULOSKELETAL: No joint swelling or deformity. EXTREMITIES: No cyanosis, clubbing, or pedal edema. NEUROLOGICAL: Gross neurological examination did not reveal any focal deficits. SKIN: No rashes. No petechiae Results CBC & Chem 7: 04/23/20 08:33 04/23/20 08:33 Labs: Microbiology - Last 24 Hours (Table) 04/23/20 08:36 Urine Culture - Final Urine,Voided Thrombosis Risk Factor Assmnt - Choose All That Apply Any of the Below Risk Factors Present?: Yes Other Risk Factors: Yes Each Risk Factor Represents 2 Points: Malignancy Each Risk Factor Represents 3 Points: Age 75 years or older Other congenital or acquired thrombophilia - If yes, enter type in comment: No Thrombosis Risk Factor Assessment Total Risk Factor Score: 5 Thrombosis Risk Factor Assessment Level: High Risk Assessment and Plan Assessment: - Generalized weakness and metabolic encephalopathy secondary to diarrhea for 2 days, resolved - vaso-vagal syncope versus reaction to the Medication is started zonisamide - history of CVA/TIA -GERD -Hyperlipidemia -Osteoarthritis -History of rheumatoid arthritis Plan: This is a pleasant 80 years old female who presents with vaso-vagal syncope possible reaction tozonisamide. Patient was instructed to stop using this medication. We will keep on for the patient for 24 hours extremity staple then possible she can be discharged in 24 hours Labs and medication were reviewed.. Continue same treatment. Continue with symptomatic treatment. Resume home medication. Monitor lytes and vitals. DVT and GI prophylaxis. Further recommendations of the clinical course of the patient DVT prophylaxis: Subcutaneous heparin GI Prophylaxis: Pepcid PT/OT: Pending Prognosis is guarded
[2020-04-24] MEDS: HEPARIN SODIUM,PORCINE 5,000 UNIT/ML 1 ML VIAL SQ SCH ×2 (13:51→21:46)
[2020-04-24] MEDS ORDERED: amLODIPine 5 MG TAB PO SCH (19:30)
[2020-04-25] MEDS ORDERED: HYDROcodone/APAP 5-325MG 1 EACH TAB PO STA (01:08)
[2020-04-25] MEDS: HEPARIN SODIUM,PORCINE 5,000 UNIT/ML 1 ML VIAL SQ SCH ×2 (07:45→22:01)
[2020-04-25] MEDS: PANTOPRAZOLE 40 MG TABLET PO SCH (07:45)
[2020-04-25] MEDS: polyethylene glycoL 3350 17 GM POWD.PACK PO SCH (07:45)
[2020-04-25] MEDS: ASPIRIN 81 MG PO SCH (07:45)
[2020-04-25] MEDS: amLODIPine 5 MG TAB PO SCH ×2 (07:46→08:19)
[2020-04-25] MEDS: lisinopriL 10 MG TAB PO SCH (07:46)
[2020-04-25] MEDS: DICYCLOMINE 10 MG CAP PO SCH ×4 (07:46→22:01)
[2020-04-25] MEDS: VENLAFAXINE HCL ER 150 MG CAP PO SCH (07:47)
[2020-04-25] MEDS: DONEPEZIL 5 MG TAB PO SCH (07:47)
--- NOTE | 2020-04-25 12:11 | P.PN ---
Objective - Vital Signs Vital signs: Vital Signs Temp 98.0 F 04/25/20 07:50 Pulse 64 04/25/20 07:50 Resp 16 04/25/20 07:50 BP 147/72 04/25/20 07:50 Pulse Ox 98 04/25/20 07:50 Intake & Output 04/24/20 04/25/20 04/25/20 18:59 06:59 18:59 Intake Total 1150 240 850 Output Total 2 Balance 1148 240 850 Intake: Intake, IV Titration 0 Amount Sodium Chloride 0.9% 1, 0 000 ml @ 100 mls/hr IV . Q10H MARIAA Rx#:[id number] Oral 1150 240 850 Output: Stool 2 Other: Voiding Method Toilet # Voids 2 2 # Bowel Movements 1 - Exam On-call hospitalist start covering Dr. Garcia on 04/24-04/25. Dr. Garcia will resume the care of the patient on 04/26 this is a pleasant 80 years old female with past medical history of CVA /TIA, GERD, hyperlipidemia, osteoarthritis, rheumatoid arthritis. She presents because of fall and dizziness. Patient developed diarrhea for 1-2 days and she stopped her MiraLAX , however she got a little bit confused and generally weak , she went to see her neurol ogist Dr. Moy home she has an appointment with him and he prescribed her zonisamide for shakiness in her hand , at that time her diarrhea was stopped but she still failed and well and as she was trying to get the restroom yesterday she fell on the floor with possible losing consciousness and she needed help by her to get her up. Vitas looks stable. Labs including CBC and BMP and liver enzymes were unremarkable. Urine analysis looks concentrated sample and suspicious for infection however patient denies any symptoms of UTI like no dysuria or increased frequency. Her urine culture is negative and she has no fever and no leukocytosis. Patient has been evaluated by television maintenance worker and they think it is vaso-vagal syncope. however patient regarding her consciousness and she is back to her usual self. As per patient and at bedside patient denies any headache, no blurred vision, no slurred speech, no weakness or numbness in her extremities. also no chest pain or dyspnea and patient is back to her normal self today However we'll keep the patient and monitoring for 24 hours . At baseline patient works using her walker 04/25/2020 Patient is awake and alert, today she has no dizziness or confusion but she is complaining of from severe frontal headache, [place] is given overnight and she feels better, the pain is throbbing in nature and nonradiating She denies weakness or numbness. No slurred speech. No blurred patient. Patient states usually she has migraine headache but it is different than this time Her blood pressure on the high side and Norvasc 5 mg was added - Labs CBC & Chem 7: 04/23/20 08:33 04/23/20 08:33 Labs: Microbiology - Last 24 Hours (Table) 04/23/20 08:36 Urine Culture - Final Urine,Voided Assessment and Plan Assessment: - Generalized weakness and metabolic encephalopathy secondary to diarrhea for 2 days, resolved - vaso-vagal syncope versus reaction to the Medication is started zonisamide -Severe frontal headache - history of CVA/TIA -GERD -Hyperlipidemia -Osteoarthritis -History of rheumatoid arthritis Plan: This is a pleasant 80 years old female who presents with vaso-vagal syncope possible reaction tozonisamide. Patient was instructed to stop using this medication. This patient is developing headache different than her migraine with associated some dizziness recommended urological consult. Labs and medication were reviewed.. Continue same treatment. Continue with symptomatic treatment. Resume home medication. Monitor lytes and vitals. DVT and GI prophylaxis. Further recommendations of the clinical course of the patient DVT prophylaxis: Subcutaneous heparin GI Prophylaxis: Pepcid PT/OT: Pending Prognosis is guarded Dr. Garcia team will resume the care of the patient tomorrow
[2020-04-25 13:48] VITALS: RESP 18
[2020-04-25] MEDS: ATORVASTATIN 40 MG TAB PO SCH (22:01)
[2020-04-26] MEDS ORDERED: MELATONIN 3 MG TABLET PO PRN (02:17)
[2020-04-26] MEDS: FOLIC ACID 1 MG TAB PO SCH (08:49)
[2020-04-26] MEDS: PANTOPRAZOLE 40 MG TABLET PO SCH (08:49)
[2020-04-26] MEDS: HEPARIN SODIUM,PORCINE 5,000 UNIT/ML 1 ML VIAL SQ SCH (08:49)
[2020-04-26] MEDS: DONEPEZIL 5 MG TAB PO SCH (08:49)
[2020-04-26] MEDS: ASPIRIN 81 MG PO SCH (08:49)
[2020-04-26] MEDS: DICYCLOMINE 10 MG CAP PO SCH ×2 (08:49→12:29)
[2020-04-26] MEDS: VENLAFAXINE HCL ER 150 MG CAP PO SCH (08:49)
[2020-04-26] MEDS: lisinopriL 10 MG TAB PO SCH (08:49)
[2020-04-26] MEDS: amLODIPine 5 MG TAB PO SCH (08:49)
[2020-04-26] MEDS: polyethylene glycoL 3350 17 GM POWD.PACK PO SCH (10:23)
--- NOTE | 2020-04-26 12:03 | P.CNNES ---
History of Present Illness Consult date: 04/26/20 Requesting physician: Trevor Gonzalez Reason for Consult: Syncope and headache History of Present Illness: Patient is a 80-year-old female came to the hospital for syncopal spell, and generalized weakness. Apparently the patient was started on a zonisamide 100 mg daily, the day prior to arrival by her neurologist Dr Bueno for tremors. She has taken only 1 dose of this medication. At night she wanted to go to the bathroom. She get out of the bed, lost balance and fell, hitting her back on the nightstand. Patient states that she did not pass out. There was no dizziness or near syncopal symptoms. There was no associated chest pain. She has been eating and drinking well with no vomiting. No nausea or diarrhea. No fever, dysuria or hematuria. No abdominal pain. While in the ER patient had an event, in which she became bradycardic, with heart rate of 30. This was associated with vomiting, likely vasovagal. Heart rate returned to normal with first-degree AV block. Patient has been seen by cardiology, who diagnosed her with vasovagal syncope with recent diagnosis of pancreatitis and dyslipidemia. No further workup was commended. CT head showed no acute intracranial hemorrhage, midline shift or mass effect. Chest x-ray showed no acute cardiopulmonary process. 2-D echo showed EF greater than 55%. Normal left ventricular size, wall thickness and systolic function. Left atrial size is normal. Mild MR. EKG shows sinus bradycardia with first- degree AV block. Right bundle branch block. Patient's EEG from 06/11/[address] Richards showed intermittent runs of frontally predominant delta range slowing are not epileptiform in nature. These findings indicate mild diffuse cerebral dysfunction as may be seen in a toxic metabolic encephalopathy. No epileptiform activity was seen. Patient's EEG from 05/07/[address] Castellano revealed occasional sharp waves. This could be consistent with reduced seizure threshold with no obvious epileptiform discharges seen. Patient's hemoglobin A1c 5.8 on 08/04/2019, AST is normal, ALT borderline 38. B12 is 1876, methylmalonic acid 0.34, TSH 0.068 with free T4 1.02. Patient had a carotid Doppler on 12/20/2018 which revealed mild heterogenous plaque with no significant hemodynamic stenosis. Patient also has history of migraine headaches for which she takes Maxalt 10 mg ODT. It works. Patient denies any diabetes hypertension, tobacco or alcohol use. She does have history of tremors. At present patient does not have any headache. Review of Systems As above in detail. Denies headache or problem with the patient. Patient feels fine at this time. All other review of systems unremarkable. She does have tremors. Past Medical History Past Medical History: Cancer, CVA/TIA, GERD/Reflux, Hyperlipidemia, Osteoarthritis (OA), Pneumonia, Renal Disease, Rheumatoid Arthritis (RA) Additional Past Medical History / Comment(s): Pt recently admitted to [facility] on 04/14/20 with acute pancreatitis, recent U/s and biopsy of pancreas at [facility] and spouse states no cancer but large growth-to see pancreatic specialist, elevated LFT, possible past acute pancreatitis, iron anemia, nephrolithiasis with surgery, UTIs, pt being worked up for possible dementia, skin cancer removed from nose, UTIs, migraines, RLS, generalized pain d/t RA/OA, constipation, past ileus, IBS. History of Any Multi-Drug Resistant Organisms: None Reported Past Surgical History: Breast Surgery, Cholecystectomy, Hernia Repair, Joint Replacement, Orthopedic Surgery Additional Past Surgical History / Comment(s): Rotator cuff (R); Ric Knee Replacement; Panniculectomy, lizzie fundoplication/repair paraesophageal hernia, bilateral legs varicose vein surgery, colonoscopies-normal, bilateral cataract removal, FNA abdominal seroma, cystoscopy/bladder bx/lithotripsy with R ureteral stent, skin cancer removal, bilateral benign breast biopsies, bilateral feet/toe surgeries/4th R toe amp Past Anesthesia/Blood Transfusion Reactions: No Reported Reaction Additional Past Anesthesia/Blood Transfusion Reaction / Comment(s): Pt has received blood after panniculectomy without reaction. Smoking Status: Never smoker - Past Family History Mother Family Medical History: Myocardial Infarction (NV) Additional Family Medical History / Comment(s): Mother at age 69 yrs after having the flu and complicated by a NV. Father Additional Family Medical History / Comment(s): IBS. Father at age 78yrs. Medications and Allergies Home Medications Medication Instructions Recorded Confirmed Type Aspirin 81 mg PO DAILY 06/17/18 04/23/20 History Folic Acid 1 mg PO Q48H 07/01/18 04/23/20 History rOPINIRole HCL [Requip] 0.5 mg PO BID 07/01/18 04/23/20 History metHOTREXate sodium [Methotrexate] 20 mg PO FR 10/06/18 04/23/20 History Atorvastatin Calcium [Lipitor] 40 mg PO HS 10/12/19 04/23/20 History Omeprazole 20 mg PO DAILY 10/28/19 04/23/20 History Venlafaxine HCl [Effexor XR] 150 mg PO DAILY 10/28/19 04/23/20 History ALPRAZolam [Xanax] 0.25 mg PO DAILY PRN 04/14/20 04/23/20 History Donepezil HCl [Aricept] 5 mg PO DAILY 04/14/20 04/23/20 History Rizatriptan Odt [Maxalt [employer]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] 10 mg PO DAILY PRN 04/14/20 04/23/20 History polyethylene glycoL 3350 [Miralax] 17 gm PO DAILY #20 powd.pack 04/16/20 04/23/20 Rx Baclofen [Lioresal] 10 mg PO TID PRN 04/23/20 04/23/20 History Certolizumab Pegol [Cimzia] 400 mg SQ Q30D 04/23/20 04/23/20 History Dicyclomine [Bentyl] 10 mg PO ACHS 04/23/20 04/23/20 History Meclizine [Antivert] 25 mg PO TID PRN 04/23/20 04/23/20 History Zonisamide [Zonegran] See Taper PO DIRECTED 04/23/20 04/23/20 History Allergies Allergy/AdvReac Type Severity Reaction Status Date / Time cephalexin [From Keflex] Allergy Unknown Verified 04/23/20 10:30 etodolac [From Lodine] Allergy Rash/Hives Verified 04/23/20 10:30 nabumetone [From Relafen] Allergy Rash/Hives Verified 04/23/20 10:30 naproxen [From Naprosyn] Allergy Rash/Hives Verified 04/23/20 10:30 NSAIDS (Non-Steroidal Allergy Rash/Hives Verified 04/23/20 10:30 Anti-Inflamma primidone AdvReac "dizziness" Verified 04/23/20 10:30 Physical Examination - Vital Signs Vital Signs: Vital Signs Temp Pulse Resp BP Pulse Ox 04/26/20 09:00 97.9 F 75 18 131/71 96 04/26/20 03:00 98.1 F 61 18 149/71 96 04/25/20 21:00 98.4 F 72 18 126/70 96 04/25/20 14:26 66 18 04/25/20 13:47 98.1 F 66 18 140/67 Intake and Output 04/25/20 04/26/20 04/26/20 22:59 06:59 14:59 Intake Total 470 240 Output Total 1 1 Balance 470 239 -1 Intake: Oral 470 240 Output: Stool 1 1 Other: Voiding Method Toilet Toilet Toilet # Voids 2 1 On examination patient is an elderly female, in no acute distress. Patient is alert awake oriented to time place and person. Speech and language functions recent and remote memory seems normal. Detail testing deferred. On cranial examination pupils are round and reactive to light, visual eden are full on confrontation, extraocular muscles are intact with no nystagmus. Face is symmetric, tongue protrudes to the midline. Palatal elevation and sensation normal. Hearing and shoulder shrug normal. On muscle strength testing there is no pronator drift and the strength is normal in arms and legs. Reflexes symmetric and plantars downgoing. Sensory touch is equal. No ataxia for [id number] testing. Tone and bulk of muscles normal. Patient does have tremors of her body, torso and hands. There is no carotid bruit, murmur, S1 and S2 audible. Peripheral pulses present. Results - Laboratory Findings CBC and BMP: 04/23/20 08:33 04/23/20 08:33 Abnormal Lab Findings: Abnormal Labs 04/23/20 04/23/20 04/23/20 08:33 08:33 08:33 RBC 3.22 L Hgb 10.8 L Hct 33.3 L MCV 103.4 H Chloride 110 H BUN 23 H Glucose 145 H Plasma Lactic Acid Hebert 0.6 L ALT 38 H Total Protein 6.2 L Albumin 3.4 L Urine Appearance Urine Protein Ur Leukocyte Esterase Urine WBC Amorphous Sediment Urine Bacteria 04/23/20 08:36 RBC Hgb Hct MCV Chloride BUN Glucose Plasma Lactic Acid Hebert ALT Total Protein Albumin Urine Appearance Cloudy H Urine Protein Trace H Ur Leukocyte Esterase Large H Urine WBC 17 H Amorphous Sediment Rare H Urine Bacteria Rare H Assessment and Plan Assessment: * Status post fall, possibly due to medication side effect. She was started on zonisamide 100 mg, which may have affected her balance leading to fall. * History of migraine headaches * History of tremors, follows up with neurologist. Plan: * Decrease dose of zonisamide to 50 mg daily. Prescription was given. * At present patient has no symptoms. Denies headache. She does have Maxalt prescription available, which she takes as needed for migraines. * Patient to follow up with her neurologist as outpatient. * No other workup indicated. * Neurologically clear for discharge.
--- NOTE | 2020-04-26 15:48 | P.DS ---
Providers Date of admission: 04/25/20 15:28 Expected date of discharge: 04/26/20 Attending physician: Jh Garcia Consults: 04/23/20 09:49 Consult Physician Routine Consulting Provider: Booker Soto Consult Reason/Comments: Syncope Do you want consulting provider notified?: Yes 04/25/20 14:24 Consult Physician Routine Consulting Provider: Vandana Rocha Consult Reason/Comments: syncope and headache Do you want consulting provider notified?: Yes Primary care physician: Jh Garcia Hospital Course: Final diagnoses Syncope, status post fall, suspect medication related as per neurology,zonismide dose decreased Altered mental status, acute metabolic encephalopathy secondary to the above Hypertension, Norvasc, RBOERT inhibitor initiated. History of migraine headaches History of tremors, follows with Dr. Jac Roper neurologist Recent diagnosis of pancreatitis Dyslipidemia Hospital course: This is a 80-year-old female admitted with multiple medical issues including syncope.Evaluated by neurology, zonismide dose decreased. Currently asymptomatic and requesting discharge. Significant clinical improvement. Cleared by a nephrology for discharge. Patient is being discharged home in a stable condition with guarded prognosis. The impression and plan of care has been dictated as directed. DrDomenico: I performed a history and examination of this patient, discussed the same with the dictator. I agree with the dictator's note ,documented as a scribe. Any additional findings or plans will be noted. Patient Condition at Discharge: Stable Plan - Discharge Summary Discharge Rx Participant: No New Discharge Prescriptions: New amLODIPine [Norvasc] 5 mg PO DAILY #30 tab lisinopriL [Zestril] 10 mg PO DAILY #30 tab Zonisamide [Zonegran] 50 mg PO DAILY #1 capsule Continue Aspirin 81 mg PO DAILY Folic Acid 1 mg PO Q48H rOPINIRole HCL [Requip] 0.5 mg PO BID metHOTREXate sodium [Methotrexate] 20 mg PO FR Atorvastatin Calcium [Lipitor] 40 mg PO HS Venlafaxine HCl [Effexor XR] 150 mg PO DAILY Omeprazole 20 mg PO DAILY ALPRAZolam [Xanax] 0.25 mg PO DAILY PRN PRN Reason: Anxiety Rizatriptan Odt [Maxalt G[employer] 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] 10 mg PO DAILY PRN PRN Reason: Migraine Headache Donepezil HCl [Aricept] 5 mg PO DAILY polyethylene glycoL 3350 [Miralax] 17 gm PO DAILY #20 powd.pack Certolizumab Pegol [Cimzia] 400 mg SQ Q30D Baclofen [Lioresal] 10 mg PO TID PRN PRN Reason: Muscle Pain Dicyclomine [Bentyl] 10 mg PO ACHS Meclizine [Antivert] 25 mg PO TID PRN PRN Reason: DIZZINESS Discontinued Zonisamide [Zonegran] See Taper PO DIRECTED Discharge Medication List Aspirin 81 mg PO DAILY 06/17/18 [History] Folic Acid 1 mg PO Q48H 07/01/18 [History] rOPINIRole HCL [Requip] 0.5 mg PO BID 07/01/18 [History] metHOTREXate sodium [Methotrexate] 20 mg PO FR 10/06/18 [History] Atorvastatin Calcium [Lipitor] 40 mg PO HS 10/12/19 [History] Omeprazole 20 mg PO DAILY 10/28/19 [History] Venlafaxine HCl [Effexor XR] 150 mg PO DAILY 10/28/19 [History] ALPRAZolam [Xanax] 0.25 mg PO DAILY PRN 04/14/20 [History] Donepezil HCl [Aricept] 5 mg PO DAILY 04/14/20 [History] Rizatriptan Odt [Maxalt GAS TRANSFER OPERATOR] 10 mg PO DAILY PRN 04/14/20 [History] polyethylene glycoL 3350 [Miralax] 17 gm PO DAILY #20 powd.pack 04/16/20 [Rx] Baclofen [Lioresal] 10 mg PO TID PRN 04/23/20 [History] Certolizumab Pegol [Cimzia] 400 mg SQ Q30D 04/23/20 [History] Dicyclomine [Bentyl] 10 mg PO ACHS 04/23/20 [History] Meclizine [Antivert] 25 mg PO TID PRN 04/23/20 [History] Zonisamide [Zonegran] 50 mg PO DAILY #1 capsule 04/26/20 [Rx] amLODIPine [Norvasc] 5 mg PO DAILY #30 tab 04/26/20 [Rx] lisinopriL [Zestril] 10 mg PO DAILY #30 tab 04/26/20 [Rx] Follow up Appointment(s)/Referral(s): Carie Roper MD [REFERRING] - 2 Weeks Jh Garcia DO [Primary Care Provider] - 3 Days Patient Instructions/Handouts: Near Syncope (DC)
[2020-04-26 16:02] VITALS: BP 103/55; PULSE 76; TEMP 98
== END 2020-04-26 15:38 | disposition home or self-care (01) ==
LOC: EC 08:00 → 1SOBS 09:49 → INTOOBSV 04-25 15:28 → OBSVTOIN 04-25 15:28 → UNDODISIN 04-26 15:38
PROVIDERS: ADMIT Family Medicine; ATTEND Family Medicine
DX: R55 Syncope and collapse (principal); G93.41 Metabolic encephalopathy; I10 Essential (primary) hypertension; G43.909 Migraine, unspecified, not intractable, without status migrainosus; K85.90 Acute pancreatitis without necrosis or infection, unspecified; R25.1 Tremor, unspecified; E86.0 Dehydration; D64.9 Anemia, unspecified; E78.5 Hyperlipidemia, unspecified; R00.1 Bradycardia, unspecified; I44.0 Atrioventricular block, first degree; K21.9 Gastro-esophageal reflux disease without esophagitis; M19.90 Unspecified osteoarthritis, unspecified site; M06.9 Rheumatoid arthritis, unspecified; K86.9 Disease of pancreas, unspecified; G25.81 Restless legs syndrome; K58.9 Irritable bowel syndrome, unspecified; Z91.81 History of falling; Z79.82 Long term (current) use of aspirin; Z79.899 Other long term (current) drug therapy; Z88.1 Allergy status to other antibiotic agents; Z88.6 Allergy status to analgesic agent; Z88.8 Allergy status to other drugs, medicaments and biological substances; Z85.828 Personal history of other malignant neoplasm of skin; Z86.73 Personal history of transient ischemic attack (TIA), and cerebral infarction without residual deficits; Z87.01 Personal history of pneumonia (recurrent); Z87.442 Personal history of urinary calculi; Z87.440 Personal history of urinary (tract) infections; Z96.0 Presence of urogenital implants; Z87.19 Personal history of other diseases of the digestive system; Z87.09 Personal history of other diseases of the respiratory system; Z87.828 Personal history of other (healed) physical injury and trauma; Z90.49 Acquired absence of other specified parts of digestive tract; Z96.653 Presence of artificial knee joint, bilateral; Z98.890 Other specified postprocedural states; Z86.79 Personal history of other diseases of the circulatory system; Z98.41 Cataract extraction status, right eye; Z98.42 Cataract extraction status, left eye; Z89.421 Acquired absence of other right toe(s); Z83.6 Family history of other diseases of the respiratory system; Z82.49 Family history of ischemic heart disease and other diseases of the circulatory system; Z83.79 Family history of other diseases of the digestive system
CPT/HCPCS: 96361 ×3; 96372 ×3; 96375; 96374; 99285; 36415; 93005; 93306; 80053; 83605; 83690; 83735; 84484; 85025; 85610; 85730; 81001; 87086; 71046; 70450; G0378 ×4; J0360; J1644 ×3; J2765

== ENCOUNTER 2020-05-10 17:27 | Emergency (ER) | payer MEDICARE ==
[2020-05-10] MEDS ORDERED: SODIUM CHLORIDE 0.9% 1,000 ML IV STA (18:41)
[2020-05-10] MEDS ORDERED: ONDANSETRON 4 MG/2 ML VIAL IVP STA (18:41)
[2020-05-10] MEDS ORDERED: FAMOTIDINE 20 MG/2 ML VIAL IV STA (18:41)
--- NOTE | 2020-05-10 19:26 | ED ---
Nausea/Vomiting/Diarrhea HPI - General Chief complaint: Nausea/Vomiting/Diarrhea Stated complaint: vomiting/achy all over Time Seen by Provider: 05/10/20 18:41 Source: patient Mode of arrival: ambulatory Limitations: no limitations - History of Present Illness Initial comments: Patient is 80-year-old female presenting to the emergency department with a chief complaint of nausea vomiting diarrhea. Patient reports this occurred about 3 hours prior to arrival. Patient reports prior today, she some corn and some other food which she cannot remember at this time. Patient also reports some diffuse abdominal pain going across the abdomen. Patient does report history of recurrent pancreatitis and was recently evaluated at [facility] for a suspected pancreatic mass. Patient denies any hematemesis, hematuria, hematochezia or melena. Reports the diarrhea was present since yesterday but the vomiting is new today. Denies any chest pain or shortness of breath or back pain. - Related Data Home Medications Medication Instructions Recorded Confirmed Aspirin 81 mg PO DAILY 06/17/18 04/23/20 Folic Acid 1 mg PO Q48H 07/01/18 04/23/20 rOPINIRole HCL [Requip] 0.5 mg PO BID 07/01/18 04/23/20 metHOTREXate sodium [Methotrexate] 20 mg PO FR 10/06/18 04/23/20 Atorvastatin Calcium [Lipitor] 40 mg PO HS 10/12/19 04/23/20 Omeprazole 20 mg PO DAILY 10/28/19 04/23/20 Venlafaxine HCl [Effexor XR] 150 mg PO DAILY 10/28/19 04/23/20 ALPRAZolam [Xanax] 0.25 mg PO DAILY PRN 04/14/20 04/23/20 Donepezil HCl [Aricept] 5 mg PO DAILY 04/14/20 04/23/20 Rizatriptan Odt [Maxalt IN ROOM DINING SERVER] 10 mg PO DAILY PRN 04/14/20 04/23/20 Baclofen [Lioresal] 10 mg PO TID PRN 04/23/20 04/23/20 Certolizumab Pegol [Cimzia] 400 mg SQ Q30D 04/23/20 04/23/20 Dicyclomine [Bentyl] 10 mg PO ACHS 04/23/20 04/23/20 Meclizine [Antivert] 25 mg PO TID PRN 04/23/20 04/23/20 Previous Rx's Medication Instructions Recorded polyethylene glycoL 3350 [Miralax] 17 gm PO DAILY #20 powd.pack 04/16/20 Zonisamide [Zonegran] 50 mg PO DAILY #1 capsule 04/26/20 amLODIPine [Norvasc] 5 mg PO DAILY #30 tab 04/26/20 lisinopriL [Zestril] 10 mg PO DAILY #30 tab 04/26/20 Allergies Allergy/AdvReac Type Severity Reaction Status Date / Time cephalexin [From Keflex] Allergy Unknown Verified 05/10/20 17:40 etodolac [From Lodine] Allergy Rash/Hives Verified 05/10/20 17:40 nabumetone [From Relafen] Allergy Rash/Hives Verified 05/10/20 17:40 naproxen [From Naprosyn] Allergy Rash/Hives Verified 05/10/20 17:40 NSAIDS (Non-Steroidal Allergy Rash/Hives Verified 05/10/20 17:40 Anti-Inflamma primidone AdvReac "dizziness" Verified 05/10/20 17:40 Review of Systems ROS Statement: Those systems with pertinent positive or pertinent negative responses have been documented in the HPI. ROS Other: All systems not noted in ROS Statement are negative. Past Medical History Past Medical History: Cancer, CVA/TIA, GERD/Reflux, Hyperlipidemia, Ost eoarthritis (OA), Pneumonia, Renal Disease, Rheumatoid Arthritis (RA) Additional Past Medical History / Comment(s): Pt recently admitted to [facility] on 04/14/20 with acute pancreatitis, recent U/s and biopsy of pancreas at [facility] and spouse states no cancer but large growth-to see pancreatic specialist, elevated LFT, possible past acute pancreatitis, iron anemia, nephrolithiasis with surgery, UTIs, pt being worked up for possible dementia, skin cancer removed from nose, UTIs, migraines, RLS, generalized pain d/t RA/OA, constipation, past ileus, IBS. History of Any Multi-Drug Resistant Organisms: None Reported Past Surgical History: Breast Surgery, Cholecystectomy, Hernia Repair, Joint Replacement, Orthopedic Surgery Additional Past Surgical History / Comment(s): Rotator cuff (R); Ric Knee Replacement; Panniculectomy, lizzie fundoplication/repair paraesophageal hernia, bilateral legs varicose vein surgery, colonoscopies-normal, bilateral cataract removal, FNA abdominal seroma, cystoscopy/bladder bx/lithotripsy with R ureteral stent, skin cancer removal, bilateral benign breast biopsies, bilateral feet/toe surgeries/4th R toe amp Past Anesthesia/Blood Transfusion Reactions: No Reported Reaction Additional Past Anesthesia/Blood Transfusion Reaction / Comment(s): Pt has received blood after panniculectomy without reaction. Past Psychological History: No Psychological Hx Reported Smoking Status: Never smoker Past Alcohol Use History: None Reported Past Drug Use History: None Reported - Past Family History Mother Family Medical History: Myocardial Infarction ([place]) Additional Family Medical History / Comment(s): Mother at age 69 yrs after having the flu and complicated by a [place]. Father Additional Family Medical History / Comment(s): IBS. Father at age 78yrs. General Exam Limitations: no limitations General appearance: alert, in no apparent distress Head exam: Present: atraumatic, normocephalic, normal inspection Eye exam: Present: normal appearance, PERRL, EOMI Pupils: Present: normal accommodation ENT exam: Present: normal exam, normal oropharynx, mucous membranes moist Neck exam: Present: normal inspection, full ROM. Absent: tenderness Respiratory exam: Present: normal lung sounds bilaterally. Absent: respiratory distress, wheezes Cardiovascular Exam: Present: regular rate, normal rhythm, normal heart sounds GI/Abdominal exam: Present: soft, tenderness (Epigastric abdominal pain). Absent: distended, guarding Extremities exam: Present: normal inspection, full ROM, normal capillary refill. Absent: tenderness Back exam: Present: normal inspection, full ROM. Absent: tenderness, CVA tenderness (R), CVA tenderness (L) Neurological exam: Present: alert, oriented X3 Psychiatric exam: Present: normal affect, normal mood Skin exam: Present: warm, dry, intact, normal color Course Vital Signs 05/10/20 05/10/20 05/10/20 17:40 22:00 23:00 Temperature 97.7 F 96.9 F L Pulse Rate 54 L 59 L 60 Respiratory 16 19 17 Rate Blood Pressure 91/46 118/45 120/52 O2 Sat by Pulse 99 98 97 Oximetry Medical Decision Making - Medical Decision Making Patient is 80-year-old female presenting to the emergency department with chief complaint of nausea vomiting diarrhea. Exam patient appears to have some diffuse periumbilical abdominal tenderness as well as epigastric tenderness. Patient reported she's had a pancreatic biopsy for suspected mass at [facility] in [place] about one moth ago. CBC is unremarkable. CMP shows decreased renal function with elevated creatinine level of 1.53 and elevated BUN at 29. Decreased GFR at 32. CT of abdomen and pelvis without contrast was obtained due to poor renal function. It revealed a large high density mass in the retroperitoneum posterior to the stomach and anterior to the pancreatic head. This could be a hemorrhagic pancreatitis. This appears to be changed compared to last imaging study. There also appears to be a hypodensity in the pancreatic head and body that correlates of inflammatory process. Pancreatic tumor cannot be excluded. Lipase level is within normal limits. UA shows elevated leukocyte esterase with trace amounts of blood. Troponins are negative. Lactic acid within normal limits. My attending physician, Dr. Coelho, spoke with Dr. Garcia who would be the admitting physician and is also her primary care physician. Patient is otherwise hemodynamically stable and pain is under control. Covid test pending. Dr. Garcia suggested the patient be transferred up to [facility] for further medical management. I spoke with Dr. Pan and discussed all findings. He will accept the patient. She will be transferred via ambulance. - Lab Data Result diagrams: 05/10/20 18:47 05/10/20 18:47 Lab Results 05/10/20 05/10/20 05/10/20 Range/Units 18:47 18:47 18:47 WBC 9.5 (3.8-10.6) k/uL RBC 4.15 (3.80-5.40) m/uL Hgb 13.4 (11.4-16.0) gm/dL Hct 43.1 (34.0-46.0) % MCV 103.7 H (80.0-100.0) fL MCH 32.4 (25.0-35.0) pg MCHC 31.2 (31.0-37.0) g/dL RDW 13.1 (11.5-15.5) % Plt Count 227 (150-450) k/uL Neutrophils % 83 % Lymphocytes % 11 % Monocytes % 4 % Eosinophils % 1 % Basophils % 0 % Neutrophils # 7.9 H (1.3-7.7) k/uL Lymphocytes # 1.0 (1.0-4.8) k/uL Monocytes # 0.4 (0-1.0) k/uL Eosinophils # 0.1 (0-0.7) k/uL Basophils # 0.0 (0-0.2) k/uL Hypochromasia Slight Macrocytosis Slight Sodium 139 (137-145) mmol/L Potassium 4.7 (3.5-5.1) mmol/L Chloride 106 (98-107) mmol/L Carbon Dioxide 25 (22-30) mmol/L Anion Gap 8 mmol/L BUN 29 H (7-17) mg/dL Creatinine 1.53 H (0.52-1.04) mg/dL Est GFR (CKD-EPI)AfAm 37 (>60 ml/min/1.73 sqM) Est GFR (CKD-EPI)NonAf 32 (>60 ml/min/1.73 sqM) Glucose 126 H (74-99) mg/dL Plasma Lactic Acid Hebert (0.7-2.0) mmol/L Calcium 10.3 H (8.4-10.2) mg/dL Total Bilirubin 0.8 (0.2-1.3) mg/dL AST 50 H (14-36) U/L ALT 39 H (4-34) U/L Alkaline Phosphatase 100 (38-126) U/L Troponin I <0.012 (0.000-0.034) ng/mL Total Protein 7.2 (6.3-8.2) g/dL Albumin 4.3 (3.5-5.0) g/dL Lipase 289 (23-300) U/L Urine Color Urine Appearance (Clear) Urine pH (5.0-8.0) Ur Specific [place] (1.001-1.035) Urine Protein (Negative) Urine Glucose (UA) (Negative) Urine Ketones (Negative) Urine Blood (Negative) Urine Nitrite (Negative) Urine Bilirubin (Negative) Urine Urobilinogen (<2.0) mg/dL Ur Leukocyte Esterase (Negative) Urine RBC (0-5) /hpf Urine WBC (0-5) /hpf Ur Squamous Epith Cells (0-4) /hpf Urine Bacteria (None) /hpf Hyaline Casts (0-2) /lpf Urine Mucus (None) /hpf 05/10/20 05/10/20 Range/Units 18:59 19:30 WBC (3.8-10.6) k/uL RBC (3.80-5.40) m/uL Hgb (11.4-16.0) gm/dL Hct (34.0-46.0) % MCV (80.0-100.0) fL MCH (25.0-35.0) pg MCHC (31.0-37.0) g/dL RDW (11.5-15.5) % Plt Count (150-450) k/uL Neutrophils % % Lymphocytes % % Monocytes % % Eosinophils % % Basophils % % Neutrophils # (1.3-7.7) k/uL Lymphocytes # (1.0-4.8) k/uL Monocytes # (0-1.0) k/uL Eosinophils # (0-0.7) k/uL Basophils # (0-0.2) k/uL Hypochromasia Macrocytosis Sodium (137-145) mmol/L Potassium (3.5-5.1) mmol/L Chloride (98-107) mmol/L Carbon Dioxide (22-30) mmol/L Anion Gap mmol/L BUN (7-17) mg/dL Creatinine (0.52-1.04) mg/dL Est GFR (CKD-EPI)AfAm (>60 ml/min/1.73 sqM) Est GFR (CKD-EPI)NonAf (>60 ml/min/1.73 sqM) Glucose (74-99) mg/dL Plasma Lactic Acid Hebert 1.4 (0.7-2.0) mmol/L Calcium (8.4-10.2) mg/dL Total Bilirubin (0.2-1.3) mg/dL AST (14-36) U/L ALT (4-34) U/L Alkaline Phosphatase (38-126) U/L Troponin I (0.000-0.034) ng/mL Total Protein (6.3-8.2) g/dL Albumin (3.5-5.0) g/dL Lipase (23-300) U/L Urine Color Yellow Urine Appearance Cloudy H (Clear) Urine pH 5.0 (5.0-8.0) Ur Specific [place] 1.026 (1.001-1.035) Urine Protein 1+ H (Negative) Urine Glucose (UA) Negative (Negative) Urine Ketones Negative (Negative) Urine Blood Trace H (Negative) Urine Nitrite Negative (Negative) Urine Bilirubin Negative (Negative) Urine Urobilinogen 2.0 (<2.0) mg/dL Ur Leukocyte Esterase Large H (Negative) Urine RBC 5 (0-5) /hpf Urine WBC 17 H (0-5) /hpf Ur Squamous Epith Cells 1 (0-4) /hpf Urine Bacteria Rare H (None) /hpf Hyaline Casts 65 H (0-2) /lpf Urine Mucus Occasional H (None) /hpf - EKG Data EKG Comments: Sinus rhythm with first-degree AV block. Right bundle branch block. Ventricular rate 68, NC interval 288, QRS duration 138, QTC 467. Critical Care Time Critical Care Time: Yes Total Critical Care Time: 31 Disposition Clinical Impression: Nausea vomiting and diarrhea, Abdominal pain Disposition: OTHER INSTITUTION NOT DEFINED Condition: Good Instructions (If sedation given, give patient instructions): Abdominal Pain (ED) Is patient prescribed a controlled substance at d/c from ED?: No Referrals: Jh Garcia DO [Primary Care Provider] - 1-2 days Time of Disposition: 00:21 - Out of Hospital Transfer - Req. Specs Out of Hospital Transfer - Requested Specifics: Other Emergency Center ([facility])
[2020-05-10 19:27] LABS: Basophils % (A) 0 %; Eosinophils # (A) 0.1 k/uL (0-0.7); Eosinophils % (A) 1 %; HCT 43.1 % (34.0-46.0); HGB 13.4 gm/dL (11.4-16.0); Hypochromasia Slight; Lymphocytes % (A) 11 %; MCH 32.4 pg (25.0-35.0); MCHC 31.2 g/dL (31.0-37.0); MCV 103.7 fL (80.0-100.0); Macrocytosis Slight; Mean Platelet Volume 7.5; Monocytes # (A) 0.4 k/uL (0-1.0); Monocytes % (A) 4 %; Neutrophils # (A) 7.9 k/uL (1.3-7.7); Neutrophils % (A) 83 %; Platelet Count 227 k/uL (150-450); RBC 4.15 m/uL (3.80-5.40); RDW 13.1 % (11.5-15.5); WBC 9.5 k/uL (3.8-10.6)
[2020-05-10 19:34] LABS: Appearance,Urine Cloudy (Clear); Bacteria,Urine Rare /hpf; Bilirubin,Urine Negative (Negative); Blood,Urine Trace (Negative); Color,Urine Yellow; Glucose,Urine (UA) Negative (Negative); Hyaline Casts,Urine 65 /lpf (0-2); Ketones,Urine Negative (Negative); Leukocyte Esterase,Urine Large (Negative); Mucus,Urine Occasional /hpf; Nitrite,Urine Negative (Negative); Protein,Urine 1+ (Negative); RBC,Urine 5 /hpf (0-5); Specific Gravity,Urine 1.026 (1.001-1.035); Squamous Epithelial Cell,Urine 1 /hpf (0-4); WBC,Urine 17 /hpf (0-5)
[2020-05-10] MEDS ORDERED: MORPHINE SULFATE 2 MG/ML SYRINGE IVP ONE (19:35)
[2020-05-10 19:38] LABS: Albumin 4.3 g/dL (3.5-5.0); Calcium 10.3 mg/dL (8.4-10.2); Potassium 4.7 mmol/L (3.5-5.1); Total Bilirubin 0.8 mg/dL (0.2-1.3); Total Protein 7.2 g/dL (6.3-8.2)
[2020-05-10] MEDS ORDERED: SODIUM CHLORIDE 0.9% 500 ML 500 ML IV STA (20:21)
--- NOTE | 2020-05-10 21:53 | CT ---
EXAMINATION TYPE: CT abdomen pelvis wo con DATE OF EXAM: 05/10/2020 COMPARISON: October 12, 2019 HISTORY: Vomiting and abdominal pain CT DLP: 492.1 mGycm Automated exposure control for dose reduction was used. Images obtained from the diaphragm to the floor the pelvis with no contrast. Lung bases are clear. There is no pleural effusion. There is mild hiatal hernia. Stomach is intact. T here are clips from cholecystectomy. There is probably a 1.5 cm cyst in the anterior liver in the lef t lobe. The spleen is intact. There is some hypodensity in the head of the pancreas extending into th e body. There is 6.5 x 5 cm high attenuation mass in the retroperitoneum anterior to the pancreatic h ead. There is no adrenal mass. There are multiple bilateral renal calculi that measure up to 8 mm. Ureters are not dilated. There is no retroperitoneal adenopathy. Bladder distends smoothly. There is 3.5 cm calcified uterine fibroid on the left side. There is no inguinal hernia. There is no free fluid in th e pelvis. There is no evidence of free air. There is no ascites. There is no mesenteric edema. There is spondylotic changes in the lumbar spine. There is a mild retrolisthesis at L3-4. There is no lumbar compression fracture. The bony pelvis is intact. New graft impression Large high density mass in the retroperitoneum posterior to the stomach and anterior to the pancreati c head. This could be hemorrhagic pancreatitis. This is a change compared to old exam. There is hypod ensity in the pancreatic head and body that could relate to inflammatory process. Pancreatic tumor no t excluded.
[2020-05-10] MEDS ORDERED: MORPHINE SULFATE 4 MG/ML SYRINGE IVP STA (23:47)
[2020-05-11 01:30] VITALS: BP 113/50; PULSE 69; TEMP 98.7
[2020-05-11 01:46] VITALS: RESP 19
== END 2020-05-11 01:33 | disposition other institution (70) ==
LOC: EC 17:27
DX: R11.2 Nausea with vomiting, unspecified (principal); R10.84 Generalized abdominal pain; R19.7 Diarrhea, unspecified; R10.817 Generalized abdominal tenderness; Z20.828 Contact with and (suspected) exposure to other viral communicable diseases; E78.5 Hyperlipidemia, unspecified; K21.9 Gastro-esophageal reflux disease without esophagitis; M06.9 Rheumatoid arthritis, unspecified; Z79.82 Long term (current) use of aspirin; Z79.899 Other long term (current) drug therapy; Z88.1 Allergy status to other antibiotic agents; Z88.6 Allergy status to analgesic agent; Z88.8 Allergy status to other drugs, medicaments and biological substances; Z86.73 Personal history of transient ischemic attack (TIA), and cerebral infarction without residual deficits
CPT/HCPCS: 36415; 80053; 83605; 83690; 84484; 85025; 81001; 87040; 87086; 74176; 99291; 96374; 96375 ×2; 96376; 96361 ×2; J2270 ×2; J2405; 93005

== ENCOUNTER 2020-09-23 16:41 | Emergency (ER) | payer MEDICARE ==
[2020-09-23 17:07] VITALS: TEMP 98.3
--- NOTE | 2020-09-23 18:00 | ED ---
General Adult HPI - General Chief complaint: Nausea/Vomiting/Diarrhea Stated complaint: Upset stomach, wants covid test Time Seen by Provider: 09/23/20 17:47 Source: patient Mode of arrival: wheelchair Limitations: no limitations - History of Present Illness Initial comments: Dictation was produced using [employer] dictation software. please excuse any grammatical, word or spelling errors. This patient was cared for during a federal and state declared state of emergency secondary to Covid 19 Chief Complaint: 80-year-old female past medical history of osteoarthritis presents with nausea History of Present Illness: 80-year-old female she presents today with nausea. She says her symptoms have been ongoing for proximally 48 hours. Symptoms worse today. Patient denies any abdominal pain. She denies any emesis. Denies any symptoms of room spinning. Denies any trouble walking. No extremity ataxia. Patient came to the emergency department. She also had her evaluated. He was been positive for Covid for approximately 10 days. Patient denies any sore throat, runny nose. Denies any myalgias or loss of taste or smell. The ROS documented in this emergency department record has been reviewed and confirmed by me. Those systems with pertinent positive or negative responses have been documented in the HPI. All other systems are other negative and/or noncontributory. PHYSICAL EXAM: General Impression: Alert and oriented x3, not in acute distress HEENT: Normocephalic atraumatic, extra-ocular movements intact, pupils equal and reactive to light bilaterally, mucous membranes moist. Cardiovascular: Heart regular rate and rhythm Chest: Able to complete full sentences, no retractions, no tachypnea Abdomen: abdomen soft, non-tender, non-distended, no organomegaly Musculoskeletal: Pulses present and equal in all extremities, no peripheral edema Motor: no focal deficits noted Neurological: CN II-XII grossly intact, no focal motor or sensory deficits noted Skin: Intact with no visualized rashes Psych: Normal affect and mood ED course: 80-year-old female with no significant comorbidities, she is well-appearing presents to the emergency department for nausea. Vital Signs upon arrival are within acceptable limits. Laboratory evaluation obtained. Mild macrocytosis of 100.2. Place 135. No leukocytosis. Hemoglobin stable. Metabolic panel shows BUN of 25, creatinine 1.04. Coronavirus rapid test positive. Patient not hypoxic she is well- appearing. Patient given return precautions. patient will be discharge. - Related Data Home Medications Medication Instructions Recorded Confirmed Aspirin 81 mg PO DAILY 06/17/18 04/23/20 Folic Acid 1 mg PO Q48H 07/01/18 04/23/20 rOPINIRole HCL [Requip] 0.5 mg PO BID 07/01/18 04/23/20 metHOTREXate sodium [Methotrexate] 20 mg PO FR 10/06/18 04/23/20 Atorvastatin Calcium [Lipitor] 40 mg PO HS 10/12/19 04/23/20 Omeprazole 20 mg PO DAILY 10/28/19 04/23/20 Venlafaxine HCl [Effexor XR] 150 mg PO DAILY 10/28/19 04/23/20 ALPRAZolam [Xanax] 0.25 mg PO DAILY PRN 04/14/20 04/23/20 Donepezil HCl [Aricept] 5 mg PO DAILY 04/14/20 04/23/20 Rizatriptan Odt [Maxalt CHIEF NURSING EXECUTIVE] 10 mg PO DAILY PRN 04/14/20 04/23/20 Baclofen [Lioresal] 10 mg PO TID PRN 04/23/20 04/23/20 Certolizumab Pegol [Cimzia] 400 mg SQ Q30D 04/23/20 04/23/20 Dicyclomine [Bentyl] 10 mg PO ACHS 04/23/20 04/23/20 Meclizine [Antivert] 25 mg PO TID PRN 04/23/20 04/23/20 Previous Rx's Medication Instructions Recorded polyethylene glycoL 3350 [Miralax] 17 gm PO DAILY #20 powd.pack 04/16/20 Zonisamide [Zonegran] 50 mg PO DAILY #1 capsule 04/26/20 amLODIPine [Norvasc] 5 mg PO DAILY #30 tab 04/26/20 lisinopriL [Zestril] 10 mg PO DAILY #30 tab 04/26/20 Allergies Allergy/AdvReac Type Severity Reaction Status Date / Time cephalexin [From Keflex] Allergy Unknown Verified 09/23/20 17:08 etodolac [From Lodine] Allergy Rash/Hives Verified 09/23/20 17:08 nabumetone [From Relafen] Allergy Rash/Hives Verified 09/23/20 17:08 naproxen [From Naprosyn] Allergy Rash/Hives Verified 09/23/20 17:08 NSAIDS (Non-Steroidal Allergy Rash/Hives Verified 09/23/20 17:08 Anti-Inflamma primidone AdvReac "dizziness" Verified 09/23/20 17:08 Review of Systems ROS Statement: Those systems with pertinent positive or pertinent negative responses have been documented in the HPI. ROS Other: All systems not noted in ROS Statement are negative. Past Medical History Past Medical History: Cancer, CVA/TIA, GERD/Reflux, Hyperlipidemia, Osteoarthr itis (OA), Pneumonia, Renal Disease, Rheumatoid Arthritis (RA) Additional Past Medical History / Comment(s): Pt recently admitted to [facility] on 04/14/20 with acute pancreatitis, recent U/s and biopsy of pancreas at [facility] and spouse states no cancer but large growth-to see pancreatic specialist, elevated LFT, possible past acute pancreatitis, iron anemia, nephrolithiasis with surg isidoro, UTIs, pt being worked up for possible dementia, skin cancer removed from nose, UTIs, migraines, RLS, generalized pain d/t RA/OA, constipation, past ileus, IBS. History of Any Multi-Drug Resistant Organisms: None Reported Past Surgical History: Breast Surgery, Cholecystectomy, Hernia Repair, Joint Replacement, Orthopedic Surgery Additional Past Surgical History / Comment(s): Rotator cuff (R); Ric Knee Replacement; Panniculectomy, lizzie fundoplication/repair paraesophageal hernia, bilateral legs varicose vein surgery, colonoscopies-normal, bilateral cataract removal, FNA abdominal seroma, cystoscopy/bladder bx/lithotripsy with R ureteral stent, skin cancer removal, bilateral benign breast biopsies, bilateral feet/toe surgeries/4th R toe amp Past Anesthesia/Blood Transfusion Reactions: No Reported Reaction Additional Past Anesthesia/Blood Transfusion Reaction / Comment(s): Pt has received blood after panniculectomy without reaction. Past Psychological History: No Psychological Hx Reported Smoking Status: Never smoker Past Alcohol Use History: None Reported Past Drug Use History: None Reported - Past Family History Mother Family Medical History: Myocardial Infarction ([place]) Additional Family Medical History / Comment(s): Mother at age 69 yrs after having the flu and complicated by a [place]. Father Additional Family Medical History / Comment(s): IBS. Father at age 78yrs. General Exam Limitations: no limitations Course Vital Signs 09/23/20 17:04 Temperature 98.3 F Pulse Rate 67 Respiratory 18 Rate Blood Pressure 151/90 O2 Sat by Pulse 97 Oximetry Medical Decision Making - Lab Data Result diagrams: 09/23/20 18:26 09/23/20 18:26 Lab Results 09/23/20 09/23/20 09/23/20 Range/Units 18:03 18:26 18:26 WBC 5.7 (3.8-10.6) k/uL RBC 4.52 (3.80-5.40) m/uL Hgb 14.7 (11.4-16.0) gm/dL Hct 45.3 (34.0-46.0) % MCV 100.2 H (80.0-100.0) fL MCH 32.5 (25.0-35.0) pg MCHC 32.4 (31.0-37.0) g/dL RDW 13.2 (11.5-15.5) % Plt Count 135 L (150-450) k/uL MPV 7.8 Neutrophils % 41 % Lymphocytes % 41 % Monocytes % 10 % Eosinophils % 3 % Basophils % 3 % Neutrophils # 2.3 (1.3-7.7) k/uL Lymphocytes # 2.3 (1.0-4.8) k/uL Monocytes # 0.6 (0-1.0) k/uL Eosinophils # 0.2 (0-0.7) k/uL Basophils # 0.2 (0-0.2) k/uL Sodium 140 (137-145) mmol/L Potassium 4.5 (3.5-5.1) mmol/L Chloride 104 (98-107) mmol/L Carbon Dioxide 29 (22-30) mmol/L Anion Gap 7 mmol/L BUN 25 H (7-17) mg/dL Creatinine 1.04 (0.52-1.04) mg/dL Est GFR (CKD-EPI)AfAm 59 (>60 ml/min/1.73 sqM) Est GFR (CKD-EPI)NonAf 51 (>60 ml/min/1.73 sqM) Glucose 100 H (74-99) mg/dL Calcium 9.3 (8.4-10.2) mg/dL Magnesium 1.9 (1.6-2.3) mg/dL Total Bilirubin 0.3 (0.2-1.3) mg/dL AST 40 H (14-36) U/L ALT 33 (4-34) U/L Alkaline Phosphatase 93 (38-126) U/L Total Protein 7.3 (6.3-8.2) g/dL Albumin 4.1 (3.5-5.0) g/dL Lipase 140 (23-300) U/L Coronavirus (PCR) Detected A (Not Detectd) Disposition Clinical Impression: COVID-19 Disposition: HOME SELF-CARE Condition: Good Instructions (If sedation given, give patient instructions): Viral Pneumonia (ED) Additional Instructions: Today you were evaluated for symptoms consistent with upper respiratory infection. You are diagnosed with Covid 19. Your are stable for discharge, however it is instructed to to seek immediate medical attention especially if you develop worsening symptoms especially respiratory distress. In the meantime please remain in quarantine for 14 days. For any other questions please contact Nan for here in emergency department or [facility] at [phone] Is patient prescribed a controlled substance at d/c from ED?: No Referrals: Jh Garcia DO [Primary Care Provider] - 1-2 days Time of Disposition: 18:51
[2020-09-23 18:34] LABS: Basophils # (A) 0.2 k/uL (0-0.2); Basophils % (A) 3 %; Eosinophils # (A) 0.2 k/uL (0-0.7); Eosinophils % (A) 3 %; HCT 45.3 % (34.0-46.0); HGB 14.7 gm/dL (11.4-16.0); Lymphocytes # (A) 2.3 k/uL (1.0-4.8); Lymphocytes % (A) 41 %; MCH 32.5 pg (25.0-35.0); MCHC 32.4 g/dL (31.0-37.0); MCV 100.2 fL (80.0-100.0); Mean Platelet Volume 7.8; Monocytes # (A) 0.6 k/uL (0-1.0); Monocytes % (A) 10 %; Neutrophils # (A) 2.3 k/uL (1.3-7.7); Neutrophils % (A) 41 %; Platelet Count 135 k/uL (150-450); RBC 4.52 m/uL (3.80-5.40); RDW 13.2 % (11.5-15.5); WBC 5.7 k/uL (3.8-10.6)
[2020-09-23 18:43] LABS: Albumin 4.1 g/dL (3.5-5.0); Calcium 9.3 mg/dL (8.4-10.2); Magnesium 1.9 mg/dL (1.6-2.3); Potassium 4.5 mmol/L (3.5-5.1); Total Bilirubin 0.3 mg/dL (0.2-1.3); Total Protein 7.3 g/dL (6.3-8.2)
[2020-09-23 19:01] VITALS: BP 161/84; PULSE 71; RESP 16
== END 2020-09-23 19:01 | disposition home or self-care (01) ==
LOC: EC 16:41
DX: U07.1 COVID-19 (principal); K21.9 Gastro-esophageal reflux disease without esophagitis; E78.5 Hyperlipidemia, unspecified; M19.90 Unspecified osteoarthritis, unspecified site; M06.9 Rheumatoid arthritis, unspecified; Z79.82 Long term (current) use of aspirin; Z79.899 Other long term (current) drug therapy; Z85.828 Personal history of other malignant neoplasm of skin; Z90.49 Acquired absence of other specified parts of digestive tract; Z96.653 Presence of artificial knee joint, bilateral; Z98.42 Cataract extraction status, left eye; Z98.41 Cataract extraction status, right eye; Z89.421 Acquired absence of other right toe(s); Z86.73 Personal history of transient ischemic attack (TIA), and cerebral infarction without residual deficits; Z88.1 Allergy status to other antibiotic agents; Z88.6 Allergy status to analgesic agent; Z88.8 Allergy status to other drugs, medicaments and biological substances
CPT/HCPCS: 36415; 80053; 83690; 83735; 85025; 87635; 99283

== ENCOUNTER → 2020-11-19 | Outpatient (CLI) | payer MEDICARE ==
--- NOTE | 2020-11-19 18:54 | XR ---
EXAMINATION TYPE: XR shoulder complete LT DATE OF EXAM: 11/19/2020 COMPARISON: NONE HISTORY: Pain TECHNIQUE: Three views are submitted. FINDINGS: The osseous structures are intact. There is no acute fracture or dislocation. Hypertrophic change of the AC joint. IMPRESSION: 1. AC joint hypertrophy.
== END | disposition home or self-care (01) ==
LOC: RADXRMAIN 17:28
PROVIDERS: ATTEND Family Medicine
DX: M89.312 Hypertrophy of bone, left shoulder (principal)

== ENCOUNTER 2020-11-25 07:05 | Emergency (ER) | payer MEDICARE ==
[2020-11-25 07:13] VITALS: RESP 18
[2020-11-25] MEDS ORDERED: SODIUM CHLORIDE 0.9% 1,000 ML IV ONE (07:41)
[2020-11-25] MEDS ORDERED: INDOMETHACIN 25 MG CAP PO STA (07:44)
--- NOTE | 2020-11-25 07:50 | ED ---
General Adult HPI - General Chief complaint: Extremity Injury, Upper Stated complaint: right hand pain/passed out/nausea Time Seen by Provider: 11/25/20 07:10 Source: patient, family, RN notes reviewed, old records reviewed Mode of arrival: wheelchair Limitations: no limitations - History of Present Illness Initial comments: This is a 80-year-old female presents to the emergency department complaining that yesterday she had a swollen red area on her right hand she denies any trauma denies any fever she states is extremely tender to touch. Patient states the area encompasses the base of the first metatarsal up to the MCP joint and extends almost to the second metatarsal. Patient states just light touch and causes excruciating pain. Patient states she has full range of motion. Patient states she has no history of gout. Patient denies any other areas of redness or pain. Patient states she was walking out of the house, the hospital the pain was so bad she believes she got lightheaded and passed out her confirms this. Patient denies any chest pain difficulty breathing shortness breath per patient denies any recent nausea vomiting diarrhea per patient states she was a lot of pain last night so she didn't sleep and she was extremely tired this morning. - Related Data Home Medications Medication Instructions Recorded Confirmed Aspirin 81 mg PO DAILY 06/17/18 04/23/20 Folic Acid 1 mg PO Q48H 07/01/18 04/23/20 rOPINIRole HCL [Requip] 0.5 mg PO BID 07/01/18 04/23/20 metHOTREXate sodium [Methotrexate] 20 mg PO FR 10/06/18 04/23/20 Atorvastatin Calcium [Lipitor] 40 mg PO HS 10/12/19 04/23/20 Omeprazole 20 mg PO DAILY 10/28/19 04/23/20 Venlafaxine HCl [Effexor XR] 150 mg PO DAILY 10/28/19 04/23/20 ALPRAZolam [Xanax] 0.25 mg PO DAILY PRN 04/14/20 04/23/20 Donepezil HCl [Aricept] 5 mg PO DAILY 04/14/20 04/23/20 Rizatriptan Odt [Maxalt [employer]] 10 mg PO DAILY PRN 04/14/20 04/23/20 Baclofen [Lioresal] 10 mg PO TID PRN 04/23/20 04/23/20 Certolizumab Pegol [Cimzia] 400 mg SQ Q30D 04/23/20 04/23/20 Dicyclomine [Bentyl] 10 mg PO ACHS 04/23/20 04/23/20 Meclizine [Antivert] 25 mg PO TID PRN 04/23/20 04/23/20 Previous Rx's Medication Instructions Recorded polyethylene glycoL 3350 [Miralax] 17 gm PO DAILY #20 powd.pack 04/16/20 Zonisamide [Zonegran] 50 mg PO DAILY #1 capsule 04/26/20 amLODIPine [Norvasc] 5 mg PO DAILY #30 tab 04/26/20 lisinopriL [Zestril] 10 mg PO DAILY #30 tab 04/26/20 predniSONE [Deltasone] 40 mg PO DAILY #8 tab 11/25/20 Allergies Allergy/AdvReac Type Severity Reaction Status Date / Time cephalexin [From Keflex] Allergy Unknown Verified 11/25/20 07:13 etodolac [From Lodine] Allergy Rash/Hives Verified 11/25/20 07:13 nabumetone [From Relafen] Allergy Rash/Hives Verified 11/25/20 07:13 naproxen [From Naprosyn] Allergy Rash/Hives Verified 11/25/20 07:13 NSAIDS (Non-Steroidal Allergy Rash/Hives Verified 11/25/20 07:13 Anti-Inflamma primidone AdvReac "dizziness" Verified 11/25/20 07:13 Review of Systems ROS Statement: Those systems with pertinent positive or pertinent negative responses have been documented in the HPI. ROS Other: All systems not noted in ROS Statement are negative. Past Medical History Past Medical History: Cancer, CVA/TIA, GERD/Reflux, Hyperlipidemia, Osteoarthritis (OA), Pneumonia, Renal Disease, Rheumatoid Arthritis (RA) Additional Past Medical History / Comment(s): [facility] with acute pancreatitis, recent U/s and biopsy of pancreas at [facility] and spo use states no cancer but large growth-to see pancreatic specialist, elevated LFT, possible past acute pancreatitis, iron anemia, nephrolithiasis with surgery, UTIs, pt being worked up for possible dementia, skin cancer removed from nose, UTIs, migraines, RLS, generalized pain d/t RA/OA, constipation, past ileus, IBS. History of Any Multi-Drug Resistant Organisms: None Reported Past Surgical History: Breast Surgery, Cholecystectomy, Hernia Repair, Joint Replacement, Orthopedic Surgery Additional Past Surgical History / Comment(s): Rotator cuff (R); Ric Knee Replacement; Panniculectomy, lizzie fundoplication/repair paraesophageal hernia, bilateral legs varicose vein surgery, colonoscopies-normal, bilateral cataract removal, FNA abdominal seroma, cystoscopy/bladder bx/lithotripsy with R ureteral stent, skin cancer removal, bilateral benign breast biopsies, bilateral feet/toe surgeries/4th R toe amp Past Anesthesia/Blood Transfusion Reactions: No Reported Reaction Additional Past Anesthesia/Blood Transfusion Reaction / Comment(s): Pt has received blood after panniculectomy without reaction. Past Psychological History: No Psychological Hx Reported Smoking Status: Never smoker Past Alcohol Use History: None Reported Past Drug Use History: None Reported - Past Family History Mother Family Medical History: Myocardial Infarction ([place]) Additional Family Medical History / Comment(s): Mother at age 69 yrs after having the flu and complicated by a [place]. Father Additional Family Medical History / Comment(s): IBS. Father at age 78yrs. General Exam - General Exam Comments Initial Comments: GENERAL: Patient is well-developed and well-nourished. Patient is nontoxic and well-h ydrated and is in mild distress. ENT: Neck is soft and supple. No significant lymphadenopathy is noted. Oropharynx is clear. Moist mucous membranes. Neck has full range of motion without eliciting any pain. EYES: The sclera were anicteric and conjunctiva were pink and moist. Extraocular mov ements were intact and pupils were equal round and reactive to light. Eyelids were unremarkable. PULMONARY: Unlabored respirations. Good breath sounds bilaterally. No audible rales rhonchi or wheezing was noted. CARDIOVASCULAR: There is a regular rate and rhythm without any murmurs gallops or rubs. ABDOMEN: Soft and nontender with normal bowel sounds. SKIN: There is an area of redness at the right base of the first metatarsal which extends to the MCP joint on the same hand and extends close to the second metatarsal. The area is swollen red warm and extremely tender to palpation. NEUROLOGIC: Patient is alert and oriented x3. Cranial nerves II through XII are grossly intact. Motor and sensory are also intact. Normal speech, volume and content. Symmetrical smile. MUSCULOSKELETAL: Normal extremities with adequate strength and full range of motion. LYMPHATICS: No significant lymphadenopathy is noted PSYCHIATRIC: Normal psychiatric evaluation. Limitations: no limitations Course Vital Signs 11/25/20 11/25/20 07:08 08:54 Temperature 98.0 F 98.3 F Pulse Rate 58 L 60 Respiratory 18 18 Rate Blood Pressure 97/56 146/69 O2 Sat by Pulse 99 100 Oximetry Medical Decision Making - Medical Decision Making EKG shows sinus bradycardia 55 bpm IA interval is 334 QRSs 148 QT interval is 452 QTC is 432. Patient's EKG shows no ST segment elevation or depression. Chest x-ray shows no acute abnormality. Patient has full range of motion of the joints however the area is red and tender and swollen consistent with gout. X-ray of the hand shows chronic arthritis and some possible subluxation but patient said no trauma to the hand and has full range of motion - Lab Data Result diagrams: 11/25/20 08:02 11/25/20 08:02 Lab Results 11/25/20 11/25/20 11/25/20 Range/Units 08:02 08:02 08:02 WBC 8.4 (3.8-10.6) k/uL RBC 3.99 (3.80-5.40) m/uL Hgb 13.0 (11.4-16.0) gm/dL Hct 39.6 (34.0-46.0) % MCV 99.2 (80.0-100.0) fL MCH 32.5 (25.0-35.0) pg MCHC 32.7 (31.0-37.0) g/dL RDW 11.8 (11.5-15.5) % Plt Count 225 (150-450) k/uL MPV 7.1 Neutrophils % 72 % Lymphocytes % 17 % Monocytes % 8 % Eosinophils % 2 % Basophils % 0 % Neutrophils # 6.0 (1.3-7.7) k/uL Lymphocytes # 1.4 (1.0-4.8) k/uL Monocytes # 0.7 (0-1.0) k/uL Eosinophils # 0.2 (0-0.7) k/uL Basophils # 0.0 (0-0.2) k/uL PT 9.8 (9.0-12.0) sec INR 0.9 (<1.2) APTT 20.2 L (22.0-30.0) sec Sodium 137 (137-145) mmol/L Potassium 4.2 (3.5-5.1) mmol/L Chloride 103 (98-107) mmol/L Carbon Dioxide 29 (22-30) mmol/L Anion Gap 5 mmol/L BUN 24 H (7-17) mg/dL Creatinine 1.02 (0.52-1.04) mg/dL Est GFR (CKD-EPI)AfAm 61 (>60 ml/min/1.73 sqM) Est GFR (CKD-EPI)NonAf 53 (>60 ml/min/1.73 sqM) Glucose 157 H (74-99) mg/dL Uric Acid 3.9 (3.7-7.4) mg/dL Calcium 9.1 (8.4-10.2) mg/dL Magnesium 2.0 (1.6-2.3) mg/dL Total Bilirubin 0.4 (0.2-1.3) mg/dL AST 24 (14-36) U/L ALT 32 (4-34) U/L Alkaline Phosphatase 103 (38-126) U/L Troponin I (0.000-0.034) ng/mL C-Reactive Protein 14.1 H (<10.0) mg/L Total Protein 6.6 (6.3-8.2) g/dL Albumin 3.6 (3.5-5.0) g/dL 11/25/20 Range/Units 08:02 WBC (3.8-10.6) k/uL RBC (3.80-5.40) m/uL Hgb (11.4-16.0) gm/dL Hct (34.0-46.0) % MCV (80.0-100.0) fL MCH (25.0-35.0) pg MCHC (31.0-37.0) g/dL RDW (11.5-15.5) % Plt Count (150-450) k/uL MPV Neutrophils % % Lymphocytes % % Monocytes % % Eosinophils % % Basophils % % Neutrophils # (1.3-7.7) k/uL Lymphocytes # (1.0-4.8) k/uL Monocytes # (0-1.0) k/uL Eosinophils # (0-0.7) k/uL Basophils # (0-0.2) k/uL PT (9.0-12.0) sec INR (<1.2) APTT (22.0-30.0) sec Sodium (137-145) mmol/L Potassium (3.5-5.1) mmol/L Chloride (98-107) mmol/L Carbon Dioxide (22-30) mmol/L Anion Gap mmol/L BUN (7-17) mg/dL Creatinine (0.52-1.04) mg/dL Est GFR (CKD-EPI)AfAm (>60 ml/min/1.73 sqM) Est GFR (CKD-EPI)NonAf (>60 ml/min/1.73 sqM) Glucose (74-99) mg/dL Uric Acid (3.7-7.4) mg/dL Calcium (8.4-10.2) mg/dL Magnesium (1.6-2.3) mg/dL Total Bilirubin (0.2-1.3) mg/dL AST (14-36) U/L ALT (4-34) U/L Alkaline Phosphatase (38-126) U/L Troponin I <0.012 (0.000-0.034) ng/mL C-Reactive Protein (<10.0) mg/L Total Protein (6.3-8.2) g/dL Albumin (3.5-5.0) g/dL Disposition Clinical Impression: Gout of hand, Vasovagal syncope Disposition: HOME SELF-CARE Condition: Good Instructions (If sedation given, give patient instructions): Gout (ED) Additional Instructions: Patient should take the Tylenol with Codeine that she was given when necessary for pain. After that she can just take Tylenol and continue the prednisone. Prescriptions: predniSONE [Deltasone] 40 mg PO DAILY #8 tab Is patient prescribed a controlled substance at d/c from ED?: No Referrals: Jh Garcia DO [Primary Care Provider] - 1-2 days Time of Disposition: 09:28
[2020-11-25] MEDS ORDERED: HYDROmorphone 0.5 MG/0.5 ML SYRINGE IVP STA ×2 (07:52→08:58)
[2020-11-25] MEDS ORDERED: predniSONE 50 MG TAB PO STA (07:52)
[2020-11-25 08:14] LABS: Basophils % (A) 0 %; Eosinophils # (A) 0.2 k/uL (0-0.7); Eosinophils % (A) 2 %; HCT 39.6 % (34.0-46.0); Lymphocytes # (A) 1.4 k/uL (1.0-4.8); Lymphocytes % (A) 17 %; MCH 32.5 pg (25.0-35.0); MCHC 32.7 g/dL (31.0-37.0); MCV 99.2 fL (80.0-100.0); Mean Platelet Volume 7.1; Monocytes # (A) 0.7 k/uL (0-1.0); Monocytes % (A) 8 %; Neutrophils % (A) 72 %; Platelet Count 225 k/uL (150-450); RBC 3.99 m/uL (3.80-5.40); RDW 11.8 % (11.5-15.5); WBC 8.4 k/uL (3.8-10.6)
[2020-11-25 08:22] LABS: Albumin 3.6 g/dL (3.5-5.0); Calcium 9.1 mg/dL (8.4-10.2); Potassium 4.2 mmol/L (3.5-5.1); Total Bilirubin 0.4 mg/dL (0.2-1.3); Total Protein 6.6 g/dL (6.3-8.2); Uric Acid 3.9 mg/dL (3.7-7.4)
--- NOTE | 2020-11-25 08:41 | XR ---
EXAMINATION TYPE: XR chest 2V DATE OF EXAM: 11/25/2020 COMPARISON: 04/23/2020 TECHNIQUE: PA and lateral views submitted. HISTORY: Chest pain FINDINGS: The heart is enlarged and there is hyperinflation. Degenerative change of the spine. Correlate for [place] PD. Diffuse osteopenia. Arthropathy shoulders. No pneumothorax or interstitial edema. Subsegmental ch anges at the left lung base. IMPRESSION: 1. Left basilar subsegmental atelectasis versus infiltrate, correlate clinically
--- NOTE | 2020-11-25 08:43 | XR ---
EXAMINATION TYPE: XR hand complete RT DATE OF EXAM: 11/25/2020 COMPARISON: NONE HISTORY: Pain TECHNIQUE: Three views are submitted. FINDINGS: The osseous structures are intact. There is arthropathy of the MCP, PIP and DIP joints with erosive c hanges involving the DIP joint of the first and fifth digits. Could not exclude subluxations of the M CP joints of the second and third digits. No definite acute fracture. Diffuse osteopenia. IMPRESSION: 1. Correlate for erosive osteoarthritis. 2. There appears to be subluxations of the MCP joints of the second and third digits correlate clinic ally.
[2020-11-25 08:44] LABS: INR 0.9 (<1.2); Prothrombin Time 9.8 sec (9.0-12.0)
[2020-11-25 08:48] LABS: C Reactive Protein 14.1 mg/L (<10.0)
[2020-11-25 08:55] VITALS: BP 146/69; PULSE 60; TEMP 98.3
[2020-11-25 09:09] LABS: Partial Thromboplastin Time 20.2 sec (22.0-30.0)
[2020-11-25] MEDS ORDERED: ACET/COD 300 MG/30 MG STARTER PACK 6 TAB BTL PO STA (09:31)
[2020-11-25 09:32] LABS: Erythrocyte Sedimentation Rate 29 mm/hr (0-20)
== END 2020-11-25 10:00 | disposition home or self-care (01) ==
LOC: EC 07:05
DX: M10.9 Gout, unspecified (principal); R55 Syncope and collapse; K21.9 Gastro-esophageal reflux disease without esophagitis; E78.5 Hyperlipidemia, unspecified; M19.90 Unspecified osteoarthritis, unspecified site; M06.9 Rheumatoid arthritis, unspecified; Z90.49 Acquired absence of other specified parts of digestive tract
CPT/HCPCS: 36415; 93005; 80053; 85652; 83735; 84550; 84484; 85025; 85610; 85730; 86140; 73130; 71046; 99284; 96374; 96375; J7512; J1170

== ENCOUNTER 2021-02-13 10:35 | Emergency (ER) | payer MEDICARE ==
[2021-02-13 10:40] VITALS: RESP 18
--- NOTE | 2021-02-13 11:27 | ED ---
General Adult HPI - General Chief complaint: Abdominal Pain Stated complaint: Back pain/weakness Time Seen by Provider: 02/13/21 11:11 Source: patient Mode of arrival: ambulatory Limitations: no limitations - History of Present Illness Initial comments: Dictation was produced using [employer] dictation software. please excuse any grammatical, word or spelling errors. Chief Complaint: 80-year-old female with past medical history of GERD, dyslipidemia, hiatal hernia presents to the emergency department for 1 month of headache, suprapubic abdominal pain and lower back pain. History of Present Illness: 80-year-old female presents to the emergency department for multiple complaints. Of the 3 list complaints she states that the worst of her symptoms or back pain. Patient states she did C-tax specialist in the past was told that she has back pain secondary to hip arthritis. Patient states she has pain across the lower lumbar back. It's worse when extending the back. States that she does not have pain at rest but has pain [place] whenever she moves. Patient also has abdominal pain. She states that she initially had constipation now she has diarrhea. She states the pain is in her suprapubic area. She denies any pain focal to her left lower quadrant. No fevers. Denies any nausea. No vomiting. Patient also has com plaint of headache. She states that she wakes up with a headache everyday for the last 4 weeks. States that it's whole cranial. Denies any diurnal patterns of her headache. States that it's constant and some days are worse than others. The ROS documented in this emergency department record has been reviewed and confirmed by me. Those systems with pertinent positive or negative responses have been documented in the HPI. All other systems are other negative and/or noncontributory. PHYSICAL EXAM: General Impression: Alert and oriented x3, not in acute distress HEENT: Normocephalic atraumatic, extra-ocular movements intact, pupils equal and reactive to light bilaterally, mucous membranes moist. Cardiovascular: Heart regular rate and rhythm Chest: Able to complete full sentences, no retractions, no tachypnea Abdomen: abdomen soft, non-tender, non-distended, no organomegaly, no pulsatile abdominal mass Musculoskeletal: Pulses present and equal in all extremities, no peripheral edema Motor: no focal deficits noted Neurological: CN II-XII grossly intact, no focal motor or sensory deficits noted Skin: Intact with no visualized rashes Psych: Normal affect and mood ED course: 80-year-old female presents to the emergency for multiple complaints. Her complaints are headache, lower abdominal pain and back pain. Vital signs upon arrival are within acceptable limits. Patient's well-appearing at bedside. Laboratory evaluation obtained. CBC remarkable. Metabolic panel is negative. Urinalysis is unremarkable. Computed tomography scan of the brain shows degenerative and nonspecific white matter changes most typical of remote ischemia. Computed tomography scan of the abdomen and pelvis shows pancreatic ductal dilatation, hiatal hernia, nonobstructing renal calculi, calcified uterine fibroid, right cystic adnexal mass. There is also degenerative changes to the of the lumbar spine. Patient was notified of the results of her blood tests and imaging studies. They request that patient's primary care doctor have access to this.Patient's primary care doctor is Dr. Jh Garcia. 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 Patient advised to follow-up with primary care physician for a dressing her CT findings that may be causing her symptoms. Patient told to take [id number] Tylenol for headaches. Patient is agreeable plan she'll be discharge. It is unclear what is causing patient's suprapubic pain. It's likely from uterine fibroid however did not that obvious. Patient's back pain is musculoskeletal. Patient's headache is unclear however she has no high-risk features. She states that this headache is not the worse headache of her life and does not thunderclap in nature. She has no neurologic deficits. EKG interpretation: Ventricular rate 69, sinus rhythm,. Interval through 2, QRS 1:30, QTc 458. No OK prolongation, no QTC prolongation, no ST or T-wave changes noted. EKG compared to 11/25/2020 showing no changes. Overall, this EKG is unremarkable - Related Data Home Medications Medication Instructions Recorded Confirmed Aspirin 81 mg PO DAILY 06/17/18 02/13/21 Folic Acid 1 mg PO DAILY 07/01/18 02/13/21 metHOTREXate sodium [Methotrexate] 12.5 mg PO FR 10/06/18 02/13/21 Atorvastatin Calcium [Lipitor] 40 mg PO HS 10/12/19 02/13/21 Venlafaxine HCl [Effexor XR] 150 mg PO DAILY 10/28/19 02/13/21 ALPRAZolam [Xanax] 0.25 mg PO DAILY PRN 04/14/20 02/13/21 Donepezil HCl [Aricept] 5 mg PO DAILY 04/14/20 02/13/21 Rizatriptan Odt [Maxalt SE[employer]MER] 10 mg PO DAILY PRN 04/14/20 02/13/21 Baclofen [Lioresal] 10 mg PO TID PRN 04/23/20 02/13/21 Certolizumab Pegol [Cimzia] 400 mg SQ Q30D 04/23/20 02/13/21 Dicyclomine [Bentyl] 10 mg PO ACHS 04/23/20 02/13/21 Meclizine [Antivert] 25 mg PO TID PRN 04/23/20 02/13/21 Calcium Carbonate [Calcium] 600 mg PO BID 02/13/21 02/13/21 Cyanocobalamin (Vitamin B-12) 5,000 mcg PO DAILY 02/13/21 02/13/21 [Vitamin B-12] Magnesium Citrate 250 mg PO BID 02/13/21 02/13/21 Multivitamins, Thera [Multivitamin 1 tab PO DAILY 02/13/21 02/13/21 (formulary)] [place]-3 Fatty Acids/Fish Oil [Fish 1 cap PO DAILY 02/13/21 02/13/21 Oil 1,000 mg Softgel] Omeprazole 40 mg PO DAILY 02/13/21 02/13/21 Primidone [Mysoline] 50 mg PO DAILY 02/13/21 02/13/21 Zonisamide [Zonegran] 100 mg PO Q12HR 02/13/21 02/13/21 polyethylene glycoL 3350 [Miralax] 17 gm PO DAILY PRN 02/13/21 02/13/21 rOPINIRole HCL [Requip] 1 mg PO TID 02/13/21 02/13/21 Allergies Allergy/AdvReac Type Severity Reaction Status Date / Time cephalexin [From Keflex] Allergy Unknown Verified 02/13/21 12:08 etodolac [From Lodine] Allergy Rash/Hives Verified 02/13/21 12:08 nabumetone [From Relafen] Allergy Rash/Hives Verified 02/13/21 12:08 naproxen [From Naprosyn] Allergy Rash/Hives Verified 02/13/21 12:08 NSAIDS (Non-Steroidal Allergy Rash/Hives Verified 02/13/21 12:08 Anti-Inflamma primidone AdvReac "dizziness" Verified 02/13/21 12:08 Review of Systems ROS Statement: Those systems with pertinent positive or pertinent negative responses have been documented in the HPI. ROS Other: All systems not noted in ROS Statement are negative. Past Medical History Past Medical History: Cancer, CVA/TIA, GERD/Reflux, Hyperlipidemia, Osteoarthritis (OA), Pneumonia, Renal Disease, Rheumatoid Arthritis (RA) Additional Past Medical History / Comment(s): Pt recently admitted to [facility] on 04/14/20 with acute pancreatitis, recent U/s and biopsy of pancreas at [facility] and spouse states no cancer but large growth-to see pancreatic specialist, elevated LFT, possible past acute pancreatitis, iron anemia, nephrolithiasis with surgery, UTIs, pt being worked up for possible dementia, skin cancer removed from nose, UTIs, migraines, RLS, generalized pain d/t RA/OA, constipation, past ileus, IBS. History of Any Multi-Drug Resistant Organisms: None Reported Past Surgical History: Breast Surgery, Cholecystectomy, Hernia Repair, Joint Replacement, Orthopedic Surgery Additional Past Surgical History / Comment(s): Rotator cuff (R); Ric Knee Replacement; Panniculectomy, lizzie fundoplication/repair paraesophageal hernia, bilateral legs varicose vein surgery, colonoscopies-normal, bilateral cataract removal, FNA abdominal seroma, cystoscopy/bladder bx/lithotripsy with R ureteral stent, skin cancer removal, bilateral benign breast biopsies, bilateral feet/toe surgeries/4th R toe amp Past Anesthesia/Blood Transfusion Reactions: No Reported Reaction Additional Past Anesthesia/Blood Transfusion Reaction / Comment(s): Pt has rec eived blood after panniculectomy without reaction. Past Psychological History: No Psychological Hx Reported Smoking Status: Never smoker Past Alcohol Use History: None Reported Past Drug Use History: None Reported - Past Family History Mother Family Medical History: Myocardial Infarction ([place]) Additional Family Medical History / Comment(s): Mother at age 69 yrs after having the flu and complicated by a [place]. Father Additional Family Medical History / Comment(s): IBS. Father at age 78yrs. General Exam Limitations: no limitations Course Vital Signs 02/13/21 02/13/21 10:37 12:00 Temperature 97.8 F Pulse Rate 77 63 Respiratory 18 18 Rate Blood Pressure 138/77 146/70 O2 Sat by Pulse 98 97 Oximetry Medical Decision Making - Lab Data Result diagrams: 02/13/21 11:45 02/13/21 11:45 Lab Results 02/13/21 02/13/21 02/13/21 Range/Units 11:45 11:45 12:00 WBC 4.9 (3.8-10.6) k/uL RBC 4.68 (3.80-5.40) m/uL Hgb 14.4 (11.4-16.0) gm/dL Hct 46.1 H (34.0-46.0) % MCV 98.5 (80.0-100.0) fL MCH 30.8 (25.0-35.0) pg MCHC 31.2 (31.0-37.0) g/dL RDW 15.9 H (11.5-15.5) % Plt Count 191 (150-450) k/uL MPV 7.0 Neutrophils % 53 % Lymphocytes % 34 % Monocytes % 6 % Eosinophils % 3 % Basophils % 1 % Neutrophils # 2.6 (1.3-7.7) k/uL Lymphocytes # 1.7 (1.0-4.8) k/uL Monocytes # 0.3 (0-1.0) k/uL Eosinophils # 0.2 (0-0.7) k/uL Basophils # 0.0 (0-0.2) k/uL Macrocytosis Slight Sodium 140 (137-145) mmol/L Potassium 4.2 (3.5-5.1) mmol/L Chloride 105 (98-107) mmol/L Carbon Dioxide 28 (22-30) mmol/L Anion Gap 7 mmol/L BUN 21 H (7-17) mg/dL Creatinine 0.95 (0.52-1.04) mg/dL Est GFR (CKD-EPI)AfAm 66 (>60 ml/min/1.73 sqM) Est GFR (CKD-EPI)NonAf 58 (>60 ml/min/1.73 sqM) Glucose 98 (74-99) mg/dL Calcium 9.4 (8.4-10.2) mg/dL Total Bilirubin 0.6 (0.2-1.3) mg/dL AST 33 (14-36) U/L ALT 24 (4-34) U/L Alkaline Phosphatase 122 (38-126) U/L Total Protein 7.0 (6.3-8.2) g/dL Albumin 4.3 (3.5-5.0) g/dL Lipase 117 (23-300) U/L Urine Color Yellow Urine Appearance Cloudy H (Clear) Urine pH 7.0 (5.0-8.0) Ur Specific [place] 1.020 (1.001-1.035) Urine Protein Trace H (Negative) Urine Glucose (UA) Negative (Negative) Urine Ketones Negative (Negative) Urine Blood Negative (Negative) Urine Nitrite Negative (Negative) Urine Bilirubin Negative (Negative) Urine Urobilinogen <2.0 (<2.0) mg/dL Ur Leukocyte Esterase Negative (Negative) Urine RBC 4 (0-5) /hpf Urine WBC 4 (0-5) /hpf Calcium Oxalate Crystal Rare H (None) /hpf Amorphous Sediment Moderate H (None) /hpf Granular Casts 1 (0) /lpf Urine Mucus Rare H (None) /hpf Disposition Clinical Impression: Headache, Abdominal pain Disposition: HOME SELF-CARE Additional Instructions: Computed tomography scan of the abdomen and pelvis shows pancreatic ductal dilatation, hiatal hernia, nonobstructing renal calculi, calcified uterine fibroid, right cystic adnexal mass. There is also degenerative changes to the of the lumbar spine. It is important that you follow up with her primary care doctor regarding these findings on your CT. Is patient prescribed a controlled substance at d/c from ED?: No Referrals: Jh Garcia DO [Primary Care Provider] - 1-2 days Time of Disposition: 14:22
[2021-02-13 11:55] LABS: Basophils % (A) 1 %; Eosinophils # (A) 0.2 k/uL (0-0.7); Eosinophils % (A) 3 %; HCT 46.1 % (34.0-46.0); HGB 14.4 gm/dL (11.4-16.0); Lymphocytes # (A) 1.7 k/uL (1.0-4.8); Lymphocytes % (A) 34 %; MCH 30.8 pg (25.0-35.0); MCHC 31.2 g/dL (31.0-37.0); MCV 98.5 fL (80.0-100.0); Macrocytosis Slight; Monocytes # (A) 0.3 k/uL (0-1.0); Monocytes % (A) 6 %; Neutrophils # (A) 2.6 k/uL (1.3-7.7); Neutrophils % (A) 53 %; Platelet Count 191 k/uL (150-450); RBC 4.68 m/uL (3.80-5.40); RDW 15.9 % (11.5-15.5); WBC 4.9 k/uL (3.8-10.6)
[2021-02-13 12:06] LABS: Albumin 4.3 g/dL (3.5-5.0); Calcium 9.4 mg/dL (8.4-10.2); Potassium 4.2 mmol/L (3.5-5.1); Total Bilirubin 0.6 mg/dL (0.2-1.3)
[2021-02-13 12:39] LABS: Amorphous Sediment,Urine Moderate /hpf; Appearance,Urine Cloudy (Clear); Bilirubin,Urine Negative (Negative); Blood,Urine Negative (Negative); Calcium Oxalate Crystals,Urine Rare /hpf; Color,Urine Yellow; Glucose,Urine (UA) Negative (Negative); Granular Casts,Urine 1 /lpf (0); Ketones,Urine Negative (Negative); Leukocyte Esterase,Urine Negative (Negative); Mucus,Urine Rare /hpf; Nitrite,Urine Negative (Negative); Protein,Urine Trace (Negative); RBC,Urine 4 /hpf (0-5); Urobilinogen,Urine <2.0 mg/dL (<2.0); WBC,Urine 4 /hpf (0-5)
--- NOTE | 2021-02-13 13:03 | CT ---
EXAMINATION TYPE: CT brain wo con DATE OF EXAM: 02/13/2021 COMPARISON: 04/23/2020 HISTORY: Headache CT DLP: 1119.4 mGycm Automated exposure control for dose reduction was used. FINDINGS: Mild to moderate generalized degenerative change with faint periventricular low attenuation. No acute hemorrhage or mass effect. No midline shift. Orbits are symmetric. Changes of mild chronic sinusitis. Craniocervical junction maintained. Sella tu rcica has a normal appearance. IMPRESSION: DEGENERATIVE AND NONSPECIFIC WHITE MATTER CHANGES MOST TYPICAL OF REMOTE ISCHEMIA.
--- NOTE | 2021-02-13 13:11 | CT ---
EXAMINATION TYPE: CT abdomen pelvis w con DATE OF EXAM: 02/13/2021 COMPARISON: 05/10/2020 HISTORY: Back pain and suprapubic pain CT DLP: 748.6 mGycm Automated exposure control for dose reduction was used. CONTRAST: CT scan of the abdomen pelvis is performed with IV Contrast, patient injected with 80 mL of Isovue 30 0. FINDINGS- Subsegmental linear changes at the lung bases most typical of atelectasis in the heart is prominent i n size. There is a moderate-sized hiatal hernia There is intrahepatic ductal dilation. Hypodense lesion involving the left lobe measures less than ce ntimeter most suggestive of a cyst. There appears to be isolated pancreatic ductal dilation. This mauro sures 1.6 cm and is similar to the prior exam of 10/12/2019. Consider MRCP. A ductal dilation is favore d intraductal pancreatic lesion not excluded. Postcholecystectomy changes are noted. Aorta of normal caliber. There are multiple punctate less than 5 mm left renal calculi with a larger 6 mm lower pole calculus but no hydronephrosis. No right renal calculi seen. There adrenal glands are normal morphology. Spleen normal in size and homogeneous. Bowel gas pattern nonspecific. Visualized portion of pannus within normal limits. No evidence of obst ruction. There is a calcified lesion in the left adnexa stable from the prior exam likely related to large calcified fibroid. There is a cystic mass in the right adnexa likely ovarian measuring 3.4 cm r ecommend correlation with ultrasound and CA 125. There is severe degenerative disc disease at multiple levels with retrolisthesis of L3 relative to L4 and multilevel foraminal encroachment and canal stenosis suspected. Arthropathy of the hips noted. A therosclerotic change of the aorta which is of normal caliber. IMPRESSION- 1. Stable pancreatic ductal dilation branch IPMN would be in the differential diagnosis consider ERCP . 2. Hiatal hernia. 3. Nonobstructing renal calculi. 4. Suspected large calcified uterine fibroid stable. There is a right cystic adnexal mass for which f ollow-up ultrasound is suggested as well as correlation with CA 125 given the patient's demographics.
[2021-02-13 14:47] VITALS: BP 147/63; PULSE 68; TEMP 98.2
== END 2021-02-13 14:47 | disposition home or self-care (01) ==
LOC: EC 10:35
DX: R51.9 Headache, unspecified (principal); R10.2 Pelvic and perineal pain; M54.5 Low back pain; R19.7 Diarrhea, unspecified; R53.1 Weakness; E78.5 Hyperlipidemia, unspecified; K21.9 Gastro-esophageal reflux disease without esophagitis; M06.9 Rheumatoid arthritis, unspecified; Z86.73 Personal history of transient ischemic attack (TIA), and cerebral infarction without residual deficits; Z96.653 Presence of artificial knee joint, bilateral; Z79.899 Other long term (current) drug therapy; Z79.82 Long term (current) use of aspirin
CPT/HCPCS: 36415; 93005; 80053; 83690; 85025; 81001; 70450; 74177; 99285; Q9967

== ENCOUNTER 2021-02-16 07:27 | Day surgery (SDC) | payer MEDICARE ==
[2021-02-14 15:54] VITALS: BMI 24.2
[2021-02-16 07:52] VITALS: RESP 16; TEMP 97
--- NOTE | 2021-02-16 07:53 | P.GSHP ---
History of Present Illness H&P Date: 02/16/21 CHIEF COMPLAINT: GERD and colon screen HISTORY OF PRESENT ILLNESS: The patient is a 80-year-old male who presents with gastroesophageal reflux disease and need for colon screen. Upper and lower endoscopy were offered for further evaluation and management. PAST MEDICAL HISTORY: Please see list. PAST SURGICAL HISTORY: Please see list. MEDICATIONS: Please see list. ALLERGIES: Please see list. SOCIAL HISTORY: No illicit drug use FAMILY HISTORY: No reports of Crohn disease or ulcerative colitis. REVIEW OF ORGAN SYSTEMS: CONSTITUTIONAL: No reports of fevers or chills. GI: Denies any blood in stools or constipation. PHYSICAL EXAM: VITAL SIGNS: Stable GENERAL: Well-developed pleasant in no acute distress. HEENT: No scleral icterus. Extraocular movements grossly intact. Moist buccal mucosa. NECK: Supple without lymphadenopathy. CHEST: Unlabored respirations. Equal bilateral excursions. CARDIOVASCULAR: Regular rate and rhythm. Distal 2+ pulses. ABDOMEN: Soft, nondistended. MUSCULOSKELETAL: No clubbing, cyanosis, or edema. ASSESSMENT: 1. Gastroesophageal reflux disease 2. Colon screen. PLAN: 1. Recommend proceeding with an upper and lower endoscopy Past Medical History Past Medical History: Cancer, CVA/TIA, GERD/Reflux, Hyperlipidemia, Memory Impairment, Osteoarthritis (OA), Pneumonia, Renal Disease, Rheumatoid Arthritis (RA) Additional Past Medical History / Comment(s): having abdominal pain,received both covid vaccine, had Covid fall 2019, admitted to [facility] on 04/14/20 with acute pancreatitis, recent U/s and biopsy of pancreas at [facility] and spouse states no cancer but large growth-to see pancreatic specialist, elevated LFT, possible past acute pancreatitis, iron anemia, nephrolithiasis with surgery, UTIs, skin cancer removed from nose, UTIs, migraines, RLS, generalized pain d/t RA/OA, constipation, past ileus, IBS. History of Any Multi-Drug Resistant Organisms: None Reported Past Surgical History: Breast Surgery, Cholecystectomy, Hernia Repair, Joint Replacement, Orthopedic Surgery Additional Past Surgical History / Comment(s): Rotator cuff (R); Ric Knee Replacement; Panniculectomy, lizzie fundoplication/repair paraesophageal hernia, bilateral legs varicose vein surgery, colonoscopies-normal, bilateral cataract removal, FNA abdominal seroma, cystoscopy/bladder bx/lithotripsy with R ureteral stent, skin cancer removal, bilateral benign breast biopsies, bilateral feet/toe surgeries/4th R toe amp Past Anesthesia/Blood Transfusion Reactions: No Reported Reaction Additional Past Anesthesia/Blood Transfusion Reaction / Comment(s): Pt has received blood after panniculectomy without reaction. Smoking Status: Never smoker - Past Family History Mother Family Medical History: Myocardial Infarction (NM) Additional Family Medical History / Comment(s): Mother at age 69 yrs after having the flu and complicated by a NM. Father Additional Family Medical History / Comment(s): IBS. Father at age 78yrs. Medications and Allergies Home Medications Medication Instructions Recorded Confirmed Type Aspirin 81 mg PO DAILY 06/17/18 02/14/21 History metHOTREXate sodium [Methotrexate] 12.5 mg PO FR 10/06/18 02/14/21 History Atorvastatin Calcium [Lipitor] 40 mg PO HS 10/12/19 02/14/21 History Venlafaxine HCl [Effexor XR] 150 mg PO QAM 10/28/19 02/14/21 History ALPRAZolam [Xanax] 0.25 mg PO DAILY PRN 04/14/20 02/14/21 History Rizatriptan Odt [Maxalt BACK PANEL PADDER] 10 mg PO DAILY PRN 04/14/20 02/14/21 History Baclofen [Lioresal] 20 mg PO BID PRN 04/23/20 02/14/21 History Certolizumab Pegol [Cimzia] 400 mg SQ Q15D 04/23/20 02/14/21 History Dicyclomine [Bentyl] 10 mg PO ACHS 04/23/20 02/14/21 History Meclizine [Antivert] 25 mg PO TID PRN 04/23/20 02/14/21 History Calcium Carbonate [Calcium] 600 mg PO BID 02/13/21 02/14/21 History Cyanocobalamin (Vitamin B-12) 5,000 mcg PO DAILY 02/13/21 02/14/21 History [Vitamin B-12] Multivitamins, Thera [Multivitamin 2 tab PO DAILY 02/13/21 02/14/21 History (formulary)] [place]-3 Fatty Acids/Fish Oil [Fish 1 cap PO DAILY 02/13/21 02/14/21 History Oil 1,000 mg Softgel] Omeprazole 40 mg PO DAILY 02/13/21 02/14/21 History Zonisamide [Zonegran] 100 mg PO Q12HR 02/13/21 02/14/21 History rOPINIRole HCL [Requip] 0.5 mg PO 5XD 02/13/21 02/14/21 History Allergies Allergy/AdvReac Type Severity Reaction Status Date / Time cephalexin [From Keflex] Allergy Unknown Verified 02/16/21 07:40 etodolac [From Lodine] Allergy Rash/Hives Verified 02/16/21 07:40 nabumetone [From Relafen] Allergy Rash/Hives Verified 02/16/21 07:40 naproxen [From Naprosyn] Allergy Rash/Hives Verified 02/16/21 07:40 NSAIDS (Non-Steroidal Allergy Rash/Hives Verified 02/16/21 07:40 Anti-Inflamma Surgical - Exam Vital Signs Temp Pulse Resp BP Pulse Ox 97 F L 69 16 169/72 96 02/16/21 07:51 02/16/21 07:51 02/16/21 07:51 02/16/21 07:51 02/16/21 07:51
[2021-02-16] MEDS ORDERED: LIDOCAINE 1% (10MG/ML) FOR IV START INTRADERMA ONE (08:03)
[2021-02-16] MEDS ORDERED: LACTATED RINGERS 1,000 ML IV ONE (08:03)
[2021-02-16] MEDS ORDERED: PROPOFOL 10 MG/ML 20 ML VIAL IV ONE (08:57)
--- NOTE | 2021-02-16 09:14 | P.PCN ---
Date of Procedure: 02/16/21 Description of Procedure: PREOPERATIVE DIAGNOSIS: Gastroesophageal reflux disease Hiatal hernia POSTOPERATIVE DIAGNOSIS: Gastritis. Gastroesophageal reflux disease. Diaphragmatic hiatal hernia, recurrent OPERATION: Esophagogastroduodenoscopy with biopsies along antrum. SURGEON: Teodora Wilkinson MD ANESTHESIA: MAC. INDICATIONS: The patient is a 80-year-old female who presents with a history of reflux disease. Benefits and risks of the procedure were described. Informed consent was obtained. DESCRIPTION: The patient was brought into the endoscopy suite and laid in the left lateral decubitus position. An Olympus gastroscope was passed along the posterior oropharynx down to the distal esophagus where the squamocolumnar junction was encountered at 37 cm from the incisors. The stomach was entered and no bile reflux was found. Additional findings are listed below. Biopsies with cold forceps were obtained of the antrum. The first through third portion of the duodenum was examined and unremarkable. Retroflexion of the scope confirmed Hill grade 2 lower esophageal valve. The squamocolumnar junction demonstrated LA grade B erosive esophagitis. The stomach was desufflated. The patient tolerated the procedure well. FINDINGS: Squamocolumnar junction 37 cm from the incisors. Diaphragmatic hiatus at 41 cm. Hiatal hernia, 4 cm, recurrent Hill grade 2 lower esophageal valve. LA grade B erosive esophagitis. No active duodenitis. Chronic gastritis RECOMMENDATIONS: Upper endoscopy as needed.
[2021-02-16 09:49] VITALS: BP 143/74; PULSE 62
--- NOTE | 2021-02-23 10:28 | P.PCN ---
Date of Procedure: 02/23/21 Description of Procedure: PREOPERATIVE DIAGNOSIS: Change in bowel habits POSTOPERATIVE DIAGNOSIS: Change in bowel habits OPERATION: Colonoscopy to the cecum, ileocecal valve and appendiceal orifice. SURGEON: Teodora Wilkinson MD. ANESTHESIA: MAC. INDICATIONS: The patient is a 80-year-old female who presents for change in bowel habits. Last colonoscopy over 5 years ago. Benefits and risks were described and informed consent was obtained. DESCRIPTION OF PROCEDURE: The patient had undergone Sutab prep. The patient had been brought into the operating room and laid in the left lateral decubitus position. After adequate intravenous sedation, the rectum was examined with 2% lidocaine jelly. External hemorrhoids were encountered. The rectal tone was within normal limits. No lesions were palpated in the rectal vault. An Olympus colonoscope was advanced until the cecum, ileocecal valve and appendiceal orifice were clearly viewed. The prep was fair. No scattered diverticulosis was encountered. No colonic polyps were found. No evidence of focal colitis was found. Retroflexion of the scope demonstrated grade 3 internal hemorrhoids without active bleeding or inflammation. The colon was desufflated. The patient had tolerated the procedure well. Withdrawal time was over 6 minutes. FINDINGS: Aronchick preparation quality scale 3 (1-5) Internal hemorrhoids, grade 3 External prolapsed hemorrhoids, grade 3 Redundant sigmoid colon No arteriovenous malformations. No adenomatous polyps. No focal colitis. RECOMMENDATIONS: Lower endoscopy as needed Plan - Discharge Summary Discharge Rx Participant: No New Discharge Prescriptions: Continue Aspirin 81 mg PO DAILY metHOTREXate sodium [Methotrexate] 12.5 mg PO FR Atorvastatin Calcium [Lipitor] 40 mg PO HS Venlafaxine HCl [Effexor XR] 150 mg PO QAM ALPRAZolam [Xanax] 0.25 mg PO DAILY PRN PRN Reason: Anxiety Rizatriptan Odt [Maxalt WOOD MILL SUPERVISOR] 10 mg PO DAILY PRN PRN Reason: Migraine Headache Certolizumab Pegol [Cimzia] 400 mg SQ Q15D Baclofen [Lioresal] 20 mg PO BID PRN PRN Reason: Pain Dicyclomine [Bentyl] 10 mg PO ACHS Meclizine [Antivert] 25 mg PO TID PRN PRN Reason: DIZZINESS Cyanocobalamin (Vitamin B-12) [Vitamin B-12] 5,000 mcg PO DAILY Multivitamins, Thera [Multivitamin (formulary)] 2 tab PO DAILY rOPINIRole HCL [Requip] 0.5 mg PO 5XD Calcium Carbonate [Calcium] 600 mg PO BID [place]-3 Fatty Acids/Fish Oil [Fish Oil 1,000 mg Softgel] 1 cap PO DAILY Omeprazole 40 mg PO DAILY Zonisamide [Zonegran] 100 mg PO Q12HR Discharge Medication List Aspirin 81 mg PO DAILY 06/17/18 [History] metHOTREXate sodium [Methotrexate] 12.5 mg PO FR 10/06/18 [History] Atorvastatin Calcium [Lipitor] 40 mg PO HS 10/12/19 [History] Venlafaxine HCl [Effexor XR] 150 mg PO QAM 10/28/19 [History] ALPRAZolam [Xanax] 0.25 mg PO DAILY PRN 04/14/20 [History] Rizatriptan Odt [Maxalt [employer] M[employer] SUPER[employer]OR] 10 mg PO DAILY PRN 04/14/20 [History] Baclofen [Lioresal] 20 mg PO BID PRN 04/23/20 [History] Certolizumab Pegol [Cimzia] 400 mg SQ Q15D 04/23/20 [History] Dicyclomine [Bentyl] 10 mg PO ACHS 04/23/20 [History] Meclizine [Antivert] 25 mg PO TID PRN 04/23/20 [History] Calcium Carbonate [Calcium] 600 mg PO BID 02/13/21 [History] Cyanocobalamin (Vitamin B-12) [Vitamin B-12] 5,000 mcg PO DAILY 02/13/21 [History] Multivitamins, Thera [Multivitamin (formulary)] 2 tab PO DAILY 02/13/21 [History] [place]-3 Fatty Acids/Fish Oil [Fish Oil 1,000 mg Softgel] 1 cap PO DAILY 02/13/21 [History] Omeprazole 40 mg PO DAILY 02/13/21 [History] Zonisamide [Zonegran] 100 mg PO Q12HR 02/13/21 [History] rOPINIRole HCL [Requip] 0.5 mg PO 5XD 02/13/21 [History] Follow up Appointment(s)/Referral(s): Teodora Wilkinson MD [STAFF PHYSICIAN] - 03/01/21 Patient Instructions/Handouts: *Surgery [facility] - (Anesthesia) Endoscopy Discharge Instructions, Hiatal Hernia (DC), Hemorrhoids (GEN), Colonoscopy (DC), Upper Endoscopy (DC) Activity/Diet/Wound Care/Special Instructions: Colonoscopy as needed Discharge Disposition: HOME SELF-CARE
== END 2021-02-16 10:40 | disposition home or self-care (01) ==
LOC: ORWHC2ENDO 07:27
PROVIDERS: ATTEND Surgery Plastic and Reconstructive Surgery
DX: K29.50 Unspecified chronic gastritis without bleeding (principal); K22.10 Ulcer of esophagus without bleeding; K44.9 Diaphragmatic hernia without obstruction or gangrene; K21.9 Gastro-esophageal reflux disease without esophagitis; K64.4 Residual hemorrhoidal skin tags; Z86.73 Personal history of transient ischemic attack (TIA), and cerebral infarction without residual deficits; E78.5 Hyperlipidemia, unspecified; R41.3 Other amnesia; M19.90 Unspecified osteoarthritis, unspecified site; M06.9 Rheumatoid arthritis, unspecified; N28.9 Disorder of kidney and ureter, unspecified; Z86.16 Personal history of COVID-19; Z87.19 Personal history of other diseases of the digestive system; D50.9 Iron deficiency anemia, unspecified; Z87.442 Personal history of urinary calculi; Z87.440 Personal history of urinary (tract) infections; G43.909 Migraine, unspecified, not intractable, without status migrainosus; K58.9 Irritable bowel syndrome, unspecified; Z90.49 Acquired absence of other specified parts of digestive tract; Z98.890 Other specified postprocedural states; Z96.653 Presence of artificial knee joint, bilateral; Z85.828 Personal history of other malignant neoplasm of skin; Z82.49 Family history of ischemic heart disease and other diseases of the circulatory system; Z83.79 Family history of other diseases of the digestive system; Z79.82 Long term (current) use of aspirin; Z79.899 Other long term (current) drug therapy; Z88.6 Allergy status to analgesic agent; Z88.1 Allergy status to other antibiotic agents; Z88.8 Allergy status to other drugs, medicaments and biological substances
CPT/HCPCS: 88305; 45378; 43239; J2704

== ENCOUNTER → 2021-02-17 | Outpatient (CLI) | payer MEDICARE ==
--- NOTE | 2021-02-23 10:07 | MM ---
Reason for exam: screening (asymptomatic). Last mammogram was performed 4 years and 4 months ago. History: Patient is postmenopausal, history of other cancer, and is nulliparous. Benign right mammotome panel of the right breast, August 14, 2011. Benign excisional biopsy of the left breast, 1980. Taking estrogen for 20 years beginning at age 51. Physical Findings: A clinical breast exam by your physician is recommended on an annual basis and results should be correlated with mammographic findings. MG 3D Screening Mammo W/Cad Bilateral CC and MLO view(s) were taken. Prior study comparison: October 18, 2016, bilateral MG 3d screening mammo w/cad. September 16, 2015, bilateral MG 3d screening mammo w/cad. The breast tissue is extremely dense which could obscure a lesion on mammography. Finding: There are increased coarse heterogeneous, segmental calcifications in the middle position of the left breast. Previous mammotome biopsy in the right breast. New finding since October 18, 2016 and September 16, 2015. ASSESSMENT: Incomplete: need additional imaging evaluation, BI-RAD 0 RECOMMENDATION: Special view mammogram of the left breast. [facility] will attempt to contact patient to return for supplemental views.
== END | disposition home or self-care (01) ==
LOC: RADMAMWWP 11-24 14:56
PROVIDERS: ATTEND Family Medicine
DX: Z12.31 Encounter for screening mammogram for malignant neoplasm of breast (principal); Z78.0 Asymptomatic menopausal state
CPT/HCPCS: 77063; 77067

== ENCOUNTER → 2021-02-24 | Outpatient (CLI) | payer MEDICARE ==
--- NOTE | 2021-02-25 10:56 | NM ---
EXAMINATION TYPE: NM DatScan Brain SPECT DATE OF EXAM: 02/24/2021 COMPARISON: NONE HISTORY: Tremors TECHNIQUE: 10 drops of Lugol's solution was administered 1 hour prior to injection as a thyroid bloc mike agent. After the administration of 4.5 mCi I-123 Ioflupane DaTscan. Images obtained [address] injection. SPECT images of the brain were acquired with axial and coronal reconstructions. FINDINGS: The axial SPECT images demonstrate normal background activity. Accounting for head tilt, t here appears to be slight asymmetrically blunted comma-shaped appearance of the right corpus striatum . IMPRESSION: Slightly blunted striatal activity on the left may indicate early changes of idiopathic P arkinson's disease or Parkinsonian syndrome.
== END | disposition home or self-care (01) ==
LOC: RADNMMAIN 10:48
PROVIDERS: ATTEND Psychiatry & Neurology Neurology
DX: R25.1 Tremor, unspecified (principal)
CPT/HCPCS: 78803; A9584

== ENCOUNTER → 2021-03-01 | Outpatient (CLI) | payer MEDICARE ==
--- NOTE | 2021-03-01 14:31 | MM ---
Reason for exam: additional evaluation requested from abnormal screening. Last mammogram was performed less than 1 month ago. History: Patient is postmenopausal, history of other cancer, and is nulliparous. Benign right mammotome panel of the right breast, August 14, 2011. Benign excisional biopsy of the left breast, 1980. Taking estrogen for 20 years beginning at age 51. Physical Findings: Nurse did not find any significant physical abnormalities on exam. MG 3D Work Up W/Cad LT CC with magnification, MLO with magnification, and ML view(s) were taken of the left breast. Prior study comparison: February 17, 2021, bilateral MG 3d screening mammo w/cad. October 18, 2016, bilateral MG 3d screening mammo w/cad. The breast tissue is extremely dense which could obscure a lesion on mammography. There are vascular calcifications in the left breast. These results were verbally communicated with the patient and result sheet given to the patient on 03/01/21. ASSESSMENT: Benign, BI-RAD 2 RECOMMENDATION: Return to routine screening mammogram schedule for both breasts.
== END | disposition home or self-care (01) ==
LOC: RADMAMWWP 13:34
PROVIDERS: ATTEND Family Medicine
DX: R92.2 Inconclusive mammogram (principal); R92.1 Mammographic calcification found on diagnostic imaging of breast; Z78.0 Asymptomatic menopausal state
CPT/HCPCS: 77065; G0279; 77061

== ENCOUNTER → 2021-03-09 | Outpatient (CLI) | payer MEDICARE ==
--- NOTE | 2021-03-09 17:47 | US ---
EXAMINATION TYPE: US transvaginal DATE OF EXAM: 03/09/2021 COMPARISON: CT 02/13/2021 CLINICAL HISTORY: R ovarian mass N83.8. recent CT showed right adnexa cyst TECHNIQUE: TV. Transvaginal sonographic images Date of LMP: 25+ years ago EXAM MEASUREMENTS: Uterus: 4.9 x 4.8 x 3.2 cm Endometrial Stripe: not seen Right Ovary: 3.6 x 3.3 x 3.4 cm Left Ovary: not seen 1. Uterus: Retroverted 3.3cm calcified fibroid seen on the left side of uterus 2. Endometrium: unable to discern 3. Right Ovary: complex cyst with septations seen = 3.4cm 4. Left Ovary: not seen due to atrophy and bowel gas 5. Bilateral Adnexa: wnl 6. Posterior cul-de-sac: wnl IMPRESSION: 1. The endometrial stripe is not visualized on this study. 2. 3.3 cm probable calcified leiomyoma at the left uterus. 3. Complex cystic structure within the right ovary measuring 3.3 cm. In a postmenopausal female, tavon gical gynecologic evaluation is recommended. Cystadenoma or cystadenocarcinoma are not excluded.
== END | disposition home or self-care (01) ==
LOC: RADUSWWP 14:19
PROVIDERS: ATTEND Obstetrics & Gynecology
DX: N83.201 Unspecified ovarian cyst, right side (principal)
CPT/HCPCS: 76830; 86304

== ENCOUNTER → 2021-06-06 | Outpatient (CLI) | payer MEDICARE ==
--- NOTE | 2021-06-06 16:00 | US ---
EXAMINATION TYPE: US pelvic complete DATE OF EXAM: 06/06/2021 COMPARISON: 03/09/2021 CLINICAL HISTORY: N83.0 RT OVARIAN CYST. known ovarian cyst, no pelvic pain in 81yr old TECHNIQUE: TA. Transabdominal sonographic images of the pelvis were acquired. Date of LMP: 25+yrs ago EXAM MEASUREMENTS: Uterus: 4.4 x 3.7 x 2.2 cm Endometrial Stripe: not discernable Right Ovary: 2.8 x 2.8 x 3.1 cm Left Ovary: not seen elderly patient filled bladder, did not perform TV assessment since rt ovarian cyst was seen transa bdominal 1. Uterus: Anteverted limited views appear wnl, previously seen fibroid on transvaginal was not se en during transabdominal exam 2. Endometrium: not discernable 3. Right Ovary: 2.8 x 2.2 x 2.9cm cystic lesion. Fewer internal echoes are present. Previous measure ment of 3.4 x 3.1 x 3.2 cm. 4. Left Ovary: not seen due to atrophy and bowel gas 5. Bilateral Adnexa: wnl 6. Posterior cul-de-sac: wnl IMPRESSION: 1. Persistent right ovarian cyst. This appears with less internal echoes on the comparison study and slightly smaller than comparison.
== END | disposition home or self-care (01) ==
LOC: RADUSWWP 12:24
PROVIDERS: ATTEND Obstetrics & Gynecology
DX: N83.201 Unspecified ovarian cyst, right side (principal)
CPT/HCPCS: 76856

== ENCOUNTER 2022-01-28 16:56 | Emergency (ER) | payer MEDICARE ==
[2022-01-28 18:21] LABS: Basophils # (A) 0.1 k/uL (0-0.2); Basophils % (A) 1 %; Eosinophils # (A) 0.3 k/uL (0-0.7); Eosinophils % (A) 4 %; HCT 42.7 % (34.0-46.0); HGB 13.4 gm/dL (11.4-16.0); Lymphocytes # (A) 2.5 k/uL (1.0-4.8); Lymphocytes % (A) 40 %; MCH 33.1 pg (25.0-35.0); MCHC 31.5 g/dL (31.0-37.0); MCV 105.2 fL (80.0-100.0); Macrocytosis Slight; Mean Platelet Volume 7.7; Monocytes # (A) 0.5 k/uL (0-1.0); Monocytes % (A) 8 %; Neutrophils # (A) 2.6 k/uL (1.3-7.7); Neutrophils % (A) 43 %; Platelet Count 147 k/uL (150-450); RBC 4.06 m/uL (3.80-5.40); RDW 13.2 % (11.5-15.5); WBC 6.1 k/uL (3.8-10.6)
[2022-01-28 18:25] LABS: Prothrombin Time 10.5 sec (9.0-12.0)
[2022-01-28 18:32] LABS: ALT <6 U/L (4-34); AST 22 U/L (14-36); African American GFR (CKD) 61 (>60 ml/min/1.73 sqM); Albumin 3.8 g/dL (3.5-5.0); Alkaline Phosphatase 82 U/L (38-126); Amylase 72 U/L (30-110); Anion Gap 3 mmol/L; Blood Urea Nitrogen 22 mg/dL (7-17); Calcium 9.3 mg/dL (8.4-10.2); Carbon Dioxide 29 mmol/L (22-30); Chloride 105 mmol/L (98-107); Glucose 93 mg/dL (74-99); Lipase 126 U/L (23-300); Non-African American GFR(CKD) 53 (>60 ml/min/1.73 sqM); Potassium 4.6 mmol/L (3.5-5.1); Sodium 137 mmol/L (137-145); Total Bilirubin 0.4 mg/dL (0.2-1.3); Total Protein 6.4 g/dL (6.3-8.2)
[2022-01-28 21:24] VITALS: RESP 18
[2022-01-28] MEDS ORDERED: MORPHINE SULFATE 2 MG/ML SYRINGE IVP STA (22:13)
[2022-01-28] MEDS ORDERED: SODIUM CHLORIDE 0.9% 1,000 ML IV STA (22:13)
[2022-01-28] MEDS ORDERED: ONDANSETRON 4 MG/2 ML VIAL IVP STA (22:13)
--- NOTE | 2022-01-28 22:48 | ED ---
General Adult HPI - General Chief complaint: Abdominal Pain Stated complaint: abd pain, dark stool Time Seen by Provider: 01/28/22 21:15 Source: patient, RN notes reviewed Mode of arrival: ambulatory Limitations: no limitations - History of Present Illness Initial comments: 81-year-old female presents to the emergency department accompanied by her spous severo for evaluation of diffuse abdominal discomfort. Patient states she has been seen by her PCP for this discomfort as she has had this pain for several months and is scheduled for an EGD with Dr. Wilkinson next month. Patient states she has taken Gas-X previously with some relief. States she alternates between constipation and diarrhea. Reports regular soft bowel movements the past several days. Patient states the pain became more intense this afternoon causing her to become nauseous. Denies fever, chills, chest pain, difficulty breathing, vomiting, flank pain, dysuria, hematuria, or hematochezia. - Related Data Home Medications Medication Instructions Recorded Confirmed Aspirin 81 mg PO DAILY 06/17/18 02/16/21 metHOTREXate sodium [Methotrexate] 12.5 mg PO FR 10/06/18 02/16/21 Atorvastatin Calcium [Lipitor] 40 mg PO HS 10/12/19 02/16/21 Venlafaxine HCl [Effexor XR] 150 mg PO QAM 10/28/19 02/16/21 ALPRAZolam [Xanax] 0.25 mg PO DAILY PRN 04/14/20 02/16/21 Rizatriptan Odt [Maxalt LOCAL DELIVERY DRIVER] 10 mg PO DAILY PRN 04/14/20 02/16/21 Baclofen [Lioresal] 20 mg PO BID PRN 04/23/20 02/16/21 Certolizumab Pegol [Cimzia] 400 mg SQ Q15D 04/23/20 02/16/21 Dicyclomine [Bentyl] 10 mg PO ACHS 04/23/20 02/16/21 Meclizine [Antivert] 25 mg PO TID PRN 04/23/20 02/16/21 Calcium Carbonate [Calcium] 600 mg PO BID 02/13/21 02/16/21 Cyanocobalamin (Vitamin B-12) 5,000 mcg PO DAILY 02/13/21 02/16/21 [Vitamin B-12] Multivitamins, Thera [Multivitamin 2 tab PO DAILY 02/13/21 02/16/21 (formulary)] [place]-3 Fatty Acids/Fish Oil [Fish 1 cap PO DAILY 02/13/21 02/16/21 Oil 1,000 mg Softgel] Omeprazole 40 mg PO DAILY 02/13/21 02/16/21 Zonisamide [Zonegran] 100 mg PO Q12HR 02/13/21 02/16/21 rOPINIRole HCL [Requip] 0.5 mg PO 5XD 02/13/21 02/16/21 Previous Rx's Medication Instructions Recorded Dicyclomine [Bentyl] 10 mg PO BID PRN #14 tablet 01/29/22 Allergies Allergy/AdvReac Type Severity Reaction Status Date / Time cephalexin [From Keflex] Allergy Unknown Verified 01/28/22 17:54 etodolac [From Lodine] Allergy Rash/Hives Verified 01/28/22 17:54 nabumetone [From Relafen] Allergy Rash/Hives Verified 01/28/22 17:54 naproxen [From Naprosyn] Allergy Rash/Hives Verified 01/28/22 17:54 NSAIDS (Non-Steroidal Allergy Rash/Hives Verified 01/28/22 17:54 Anti-Inflamma Review of Systems ROS Statement: Those systems with pertinent positive or pertinent negative responses have been documented in the HPI. ROS Other: All systems not noted in ROS Statement are negative. Past Medical History Past Medical History: Cancer, CVA/TIA, GERD/Reflux, Hyperlipidemia, Osteoarthritis (OA), Pneumonia, Renal Disease, Rheumatoid Arthritis (RA) Additional Past Medical History / Comment(s): Pt recently admitted to [facility] on 04/14/20 with acute pancreatitis, recent U/s and biopsy of pancreas at [facility] and spouse states no cancer but large growth-to see pancreatic specialist, elevated LFT, possible past acute pancreatitis, iron anemia, nephrolithiasis with surgery, UTIs, pt being worked up for possible dementia, skin cancer removed from nose, UTIs, migraines, RLS, generalized pain d/t RA/OA, constipation, past ileus, IBS. History of Any Multi-Drug Resistant Organisms: None Reported Past Surgical History: Breast Surgery, Cholecystectomy, Hernia Repair, Joint Replacement, Orthopedic Surgery Additional Past Surgical History / Comment(s): Rotator cuff (R); Ric Knee Replacement; Panniculectomy, lizzie fundoplication/repair paraesophageal hernia, bilateral legs varicose vein surgery, colonoscopies-normal, bilateral cataract removal, FNA abdominal seroma, cystoscopy/bladder bx/lithotripsy with R ureteral stent, skin cancer removal, bilateral benign breast biopsies, bilateral feet/toe surgeries/4th R toe amp Past Anesthesia/Blood Transfusion Reactions: No Reported Reaction Additional Past Anesthesia/Blood Transfusion Reaction / Comment(s): Pt has received blood after panniculectomy without reaction. Past Psychological History: No Psychological Hx Reported Smoking Status: Never smoker Past Alcohol Use History: None Reported Past Drug Use History: None Reported - Past Family History Mother Family Medical History: Myocardial Infarction ([place]) Additional Family Medical History / Comment(s): Mother at age 69 yrs after having the flu and complicated by a [place]. Father Additional Family Medical History / Comment(s): IBS. Father at age 78yrs. General Exam Limitations: no limitations General appearance: alert, in no apparent distress (Well-developed, well- nourished female in no acute distress. Initial temperature 98.3, pulse 56, respirations 16, blood pressure 145/66, pulse ox 98% on room air.) Eye exam: Present: normal appearance, PERRL, EOMI. Absent: scleral icterus, conjunctival injection, periorbital swelling ENT exam: Present: normal oropharynx, mucous membranes moist Neck exam: Present: normal inspection, full ROM. Absent: tenderness, meningismus, lymphadenopathy Respiratory exam: Present: normal lung sounds bilaterally. Absent: respiratory distress, wheezes, rales, rhonchi, stridor Cardiovascular Exam: Present: regular rate, normal rhythm, normal heart sounds. Absent: systolic murmur, diastolic murmur, rubs, gallop, clicks GI/Abdominal exam: Present: soft, tenderness (Tenderness upon palpation across the middle abdomen.), normal bowel sounds. Absent: distended, guarding, rebound, rigid, hernia Extremities exam: Present: normal capillary refill. Absent: pedal edema Back exam: Present: normal inspection, CVA tenderness (L) Neurological exam: Present: alert, oriented X3, normal gait Psychiatric exam: Present: normal affect, normal mood Skin exam: Present: warm, dry, intact, normal color. Absent: rash Course Vital Signs 01/28/22 01/28/22 01/29/22 17:51 21:23 02:38 Temperature 98.3 F 98.5 F Pulse Rate 56 L 62 56 L Respiratory 16 18 18 Rate Blood Pressure 145/66 111/37 138/63 O2 Sat by Pulse 98 97 97 Oximetry - Reevaluation(s) Reevaluation #1: 01/29/22 01:00 Upon reevaluation, patient is sitting upright at the side of the bed feeling much improved. She is able to tolerate oral intake without difficulty. She will receive the remainder of the IV fluids and will be discharged home to follow-up with her PCP and surgeon as scheduled. Medical Decision Making - Medical Decision Making This is an 81-year-old female with a past medical history of pancreatitis, kidney stones, iron deficiency anemia, GERD, and IBS who presents to the emergency department for evaluation of vague, middle abdominal pain that has been ongoing for several months. Upon exam, patient appears mildly uncomfortable while at rest. Her pain is nonlocalized; abdomen is soft. Vital signs are stable. Laboratory studies were reviewed with no significant findings. Patient was given IV fluids, pain medication, and nausea medication with substantial improvement. CT of the abdomen and pelvis shows no acute changes. Findings were reviewed with patient and spouse. She verbalizes readiness for discharge. Patient will be prescribed Bentyl for spasmodic abdominal cramping discomfort. Also encouraged to take Gas-X for gastritis related pain. Instructed to follow up with her PCP for a recheck this week. Encouraged to keep future appointment as scheduled with Dr. Wilkinson. Return parameters were discussed in detail. Patient and spouse verbalized understanding and agreed with this plan. Attending: Davion. - Lab Data Result diagrams: 01/28/22 18:00 01/28/22 18:00 Lab Results 01/28/22 01/28/22 01/28/22 Range/Units 18:00 18:00 18:00 WBC 6.1 (3.8-10.6) k/uL RBC 4.06 (3.80-5.40) m/uL Hgb 13.4 (11.4-16.0) gm/dL Hct 42.7 (34.0-46.0) % MCV 105.2 H (80.0-100.0) fL MCH 33.1 (25.0-35.0) pg MCHC 31.5 (31.0-37.0) g/dL RDW 13.2 (11.5-15.5) % Plt Count 147 L (150-450) k/uL MPV 7.7 Neutrophils % 43 % Lymphocytes % 40 % Monocytes % 8 % Eosinophils % 4 % Basophils % 1 % Neutrophils # 2.6 (1.3-7.7) k/uL Lymphocytes # 2.5 (1.0-4.8) k/uL Monocytes # 0.5 (0-1.0) k/uL Eosinophils # 0.3 (0-0.7) k/uL Basophils # 0.1 (0-0.2) k/uL Macrocytosis Slight PT 10.5 (9.0-12.0) sec INR 1.0 (<1.2) Sodium 137 (137-145) mmol/L Potassium 4.6 (3.5-5.1) mmol/L Chloride 105 (98-107) mmol/L Carbon Dioxide 29 (22-30) mmol/L Anion Gap 3 mmol/L BUN 22 H (7-17) mg/dL Creatinine 1.01 (0.52-1.04) mg/dL Est GFR (CKD-EPI)AfAm 61 (>60 ml/min/1.73 sqM) Est GFR (CKD-EPI)NonAf 53 (>60 ml/min/1.73 sqM) Glucose 93 (74-99) mg/dL Calcium 9.3 (8.4-10.2) mg/dL Total Bilirubin 0.4 (0.2-1.3) mg/dL AST 22 (14-36) U/L ALT <6 (4-34) U/L Alkaline Phosphatase 82 (38-126) U/L Total Protein 6.4 (6.3-8.2) g/dL Albumin 3.8 (3.5-5.0) g/dL Amylase 72 (30-110) U/L Lipase 126 (23-300) U/L Urine Color Urine Appearance (Clear) Urine pH (5.0-8.0) Ur Specific [place] (1.001-1.035) Urine Protein (Negative) Urine Glucose (UA) (Negative) Urine Ketones (Negative) Urine Blood (Negative) Urine Nitrite (Negative) Urine Bilirubin (Negative) Urine Urobilinogen (<2.0) mg/dL Ur Leukocyte Esterase (Negative) Urine RBC (0-5) /hpf Urine WBC (0-5) /hpf Calcium Oxalate Crystal (None) /hpf Urine Mucus (None) /hpf 01/28/22 Range/Units 22:30 WBC (3.8-10.6) k/uL RBC (3.80-5.40) m/uL Hgb (11.4-16.0) gm/dL Hct (34.0-46.0) % MCV (80.0-100.0) fL MCH (25.0-35.0) pg MCHC (31.0-37.0) g/dL RDW (11.5-15.5) % Plt Count (150-450) k/uL MPV Neutrophils % % Lymphocytes % % Monocytes % % Eosinophils % % Basophils % % Neutrophils # (1.3-7.7) k/uL Lymphocytes # (1.0-4.8) k/uL Monocytes # (0-1.0) k/uL Eosinophils # (0-0.7) k/uL Basophils # (0-0.2) k/uL Macrocytosis PT (9.0-12.0) sec INR (<1.2) Sodium (137-145) mmol/L Potassium (3.5-5.1) mmol/L Chloride (98-107) mmol/L Carbon Dioxide (22-30) mmol/L Anion Gap mmol/L BUN (7-17) mg/dL Creatinine (0.52-1.04) mg/dL Est GFR (CKD-EPI)AfAm (>60 ml/min/1.73 sqM) Est GFR (CKD-EPI)NonAf (>60 ml/min/1.73 sqM) Glucose (74-99) mg/dL Calcium (8.4-10.2) mg/dL Total Bilirubin (0.2-1.3) mg/dL AST (14-36) U/L ALT (4-34) U/L Alkaline Phosphatase (38-126) U/L Total Protein (6.3-8.2) g/dL Albumin (3.5-5.0) g/dL Amylase (30-110) U/L Lipase (23-300) U/L Urine Color Yellow Urine Appearance Clear (Clear) Urine pH 5.5 (5.0-8.0) Ur Specific [place] 1.024 (1.001-1.035) Urine Protein Trace H (Negative) Urine Glucose (UA) Negative (Negative) Urine Ketones 1+ H (Negative) Urine Blood Negative (Negative) Urine Nitrite Negative (Negative) Urine Bilirubin Negative (Negative) Urine Urobilinogen <2.0 (<2.0) mg/dL Ur Leukocyte Esterase Small H (Negative) Urine RBC 3 (0-5) /hpf Urine WBC 10 H (0-5) /hpf Calcium Oxalate Crystal Few H (None) /hpf Urine Mucus Rare H (None) /hpf - Radiology Data Radiology results: report reviewed, image reviewed CT of the abdomen and pelvis with contrast was obtained. Report was reviewed in its entirety. Impression per Dr. Sawyer is bilateral multiple nonobstructing renal calculi. Decreased excretion on the delayed images is suggestive of some renal failure. This is a change compared to old exam. Cystic areas in the head and body of the pancreas suggestive of chronic pancreatitis and pseudocyst fo rmation. Right adnexal pelvic cyst unchanged. Pancreas appears not significantly different than old exam. Disposition Clinical Impression: Abdominal pain Disposition: HOME SELF-CARE Condition: Stable Instructions (If sedation given, give patient instructions): Abdominal Pain (ED ) Additional Instructions: Increase intake of fluids. Take Bentyl for spasmodic abdominal pain. May take Gas-X for associated discomfort. Keep appointment with Dr. Wilkinson as scheduled. Schedule a follow-up visit with your PCP next week. Return to the emergency department with any new, worsening, or concerning symptoms. Prescriptions: Dicyclomine [Bentyl] 10 mg PO BID PRN #14 tablet PRN Reason: Pain Is patient prescribed a controlled substance at d/c from ED?: No Referrals: Jh Garcia DO [Primary Care Provider] - 1-2 days Time of Disposition: 01:41
[2022-01-28 23:05] LABS: Appearance,Urine Clear (Clear); Bilirubin,Urine Negative (Negative); Blood,Urine Negative (Negative); Calcium Oxalate Crystals,Urine Few /hpf; Color,Urine Yellow; Glucose,Urine (UA) Negative (Negative); Ketones,Urine 1+ (Negative); Leukocyte Esterase,Urine Small (Negative); Mucus,Urine Rare /hpf; Nitrite,Urine Negative (Negative); PH, Urine 5.5 (5.0-8.0); Protein,Urine Trace (Negative); RBC,Urine 3 /hpf (0-5); Specific Gravity,Urine 1.024 (1.001-1.035); Urobilinogen,Urine <2.0 mg/dL (<2.0); WBC,Urine 10 /hpf (0-5)
--- NOTE | 2022-01-28 23:29 | CT ---
EXAMINATION TYPE: CT abdomen pelvis w con DATE OF EXAM: 01/28/2022 COMPARISON: 02/13/2021 HISTORY: abdominal pain, nausea and dark stool CT DLP: 684 mGycm Automated exposure control for dose reduction was used. CONTRAST: Performed with IV Contrast, patient injected with 80 mL of Isovue 300. The lung bases are clear. No pleural effusion. Heart size is normal. No pericardial effusion. There is small hiatal hernia. Liver and spleen are intact. Stomach is intact. There is multiple fluid areas in the body and head of the pancreas that could be multiple sclerosis. There are clips from ch olecystectomy. The intrahepatic bile ducts are not dilated. There is common bile duct measuring 13 mm . There is no adrenal mass. Kidneys show multiple bilateral renal calculi up to 1 cm. There is no hydro nephrosis. Ureters are not dilated. Bladder distends smoothly. There is a 4 cm calcified uterine fibr oid. There is no inguinal hernia. No free fluid in the pelvis. There is right side 3.5 cm cystic pelv ic fluid collection. There is no mesenteric edema. No ascites or free air. No sign of a bowel obstruction. There is very l ittle contrast excretion on the delayed images that is suggestive of some renal failure. There is multilevel lumbar spondylotic changes. There is a mild retrolisthesis at L3-4. No significan t spinal stenosis. No compression fracture. The bony pelvis appears intact. IMPRESSION: Bilateral multiple nonobstructing renal calculi. Decreased excretion on the delayed images is suggestive of some renal failure. This is a change comp ared to old exam. Cystic areas in the head and body of the pancreas suggestive of chronic pancreatitis and pseudocyst f ormation. Right adnexal pelvic cyst unchanged. Pancreas appears not significantly different than old exam.
[2022-01-29 02:39] VITALS: BP 138/63; PULSE 56; TEMP 98.5
== END 2022-01-29 02:43 | disposition home or self-care (01) ==
LOC: EC 16:56
DX: R10.9 Unspecified abdominal pain (principal); E78.5 Hyperlipidemia, unspecified; K21.9 Gastro-esophageal reflux disease without esophagitis; Z79.83 Long term (current) use of bisphosphonates; Z86.73 Personal history of transient ischemic attack (TIA), and cerebral infarction without residual deficits; Z88.1 Allergy status to other antibiotic agents; Z88.6 Allergy status to analgesic agent
CPT/HCPCS: 36415; 80053; 82150; 83690; 85025; 85610; 81001; 74177; 99284; 96374; 96375; 96361; J2405; J2270; Q9967

== ENCOUNTER 2023-02-07 12:48 | Observation (INO) | payer MEDICARE ==
[2023-02-07] MEDS ORDERED: ASPIRIN 81 MG PO STA (13:21)
[2023-02-07 13:43] LABS: Basophils % (A) 0 %; Eosinophils # (A) 0.1 k/uL (0-0.7); Eosinophils % (A) 3 %; HCT 38.6 % (34.0-46.0); Lymphocytes # (A) 0.9 k/uL (1.0-4.8); Lymphocytes % (A) 25 %; MCH 34.5 pg (25.0-35.0); MCHC 33.7 g/dL (31.0-37.0); MCV 102.5 fL (80.0-100.0); Macrocytosis Slight; Mean Platelet Volume 7.8; Monocytes # (A) 0.1 k/uL (0-1.0); Monocytes % (A) 2 %; Neutrophils # (A) 2.6 k/uL (1.3-7.7); Neutrophils % (A) 69 %; Platelet Count 113 k/uL (150-450); RBC 3.76 m/uL (3.80-5.40); RDW 12.4 % (11.5-15.5); WBC 3.7 k/uL (3.8-10.6)
--- NOTE | 2023-02-07 13:51 | XR ---
EXAMINATION TYPE: XR chest 2V DATE OF EXAM: 02/07/2023 COMPARISON: Chest x-ray November 25, 2020 HISTORY: Chest pain. TECHNIQUE: Frontal and lateral views of the chest are obtained. FINDINGS: There is no suspicious new focal air space opacity, pleural effusion, or pneumothorax seen . The cardiac silhouette size is stable and upper limits of normal. The osseous structures remain demineralized. Degenerative change bilateral shoulders greatest on the right is redemonstrated. Ema cystectomy clips are redemonstrated. IMPRESSION: Chronic changes without acute pulmonary process.
--- NOTE | 2023-02-07 13:54 | ED ---
Chest Pain HPI - General Chief Complaint: Chest Pain Stated Complaint: heart attack symptoms Time Seen by Provider: 02/07/23 13:00 Source: patient, RN notes reviewed Mode of arrival: ambulatory Limitations: no limitations - History of Present Illness Initial Comments: 82-year-old female presents emergency Department chief, chest pain. Patient states it's centralized left-sided chest pain. Patient states it started yesterday or last night and worsened throughout the night. She states she woke up severe pain. Patient states she symptoms have anxiety or panic attacks she took her medication that did not help. Patient does have a history of hypertension and hyperlipidemia has been a cardiac disease. Patient denies shortness breath but states it hurts to take a deep breath. No trauma no rashes noted. - Related Data Home Medications Medication Instructions Recorded Confirmed Aspirin 81 mg PO DAILY 06/17/18 02/16/21 metHOTREXate sodium [Methotrexate] 12.5 mg PO FR 10/06/18 02/16/21 Atorvastatin Calcium [Lipitor] 40 mg PO HS 10/12/19 02/16/21 Venlafaxine HCl [Effexor XR] 150 mg PO QAM 10/28/19 02/16/21 ALPRAZolam [Xanax] 0.25 mg PO DAILY PRN 04/14/20 02/16/21 Rizatriptan Odt [Maxalt S[employer] CR[employer]ING GUARD] 10 mg PO DAILY PRN 04/14/20 02/16/21 Baclofen [Lioresal] 20 mg PO BID PRN 04/23/20 02/16/21 Certolizumab Pegol [Cimzia] 400 mg SQ Q15D 04/23/20 02/16/21 Dicyclomine [Bentyl] 10 mg PO ACHS 04/23/20 02/16/21 Meclizine [Antivert] 25 mg PO TID PRN 04/23/20 02/16/21 Calcium Carbonate [Calcium] 600 mg PO BID 02/13/21 02/16/21 Cyanocobalamin (Vitamin B-12) 5,000 mcg PO DAILY 02/13/21 02/16/21 [Vitamin B-12] Multivitamins, Thera [Multivitamin 2 tab PO DAILY 02/13/21 02/16/21 (formulary)] [place]-3 Fatty Acids/Fish Oil [Fish 1 cap PO DAILY 02/13/21 02/16/21 Oil 1,000 mg Softgel] Omeprazole 40 mg PO DAILY 02/13/21 02/16/21 Zonisamide [Zonegran] 100 mg PO Q12HR 02/13/21 02/16/21 rOPINIRole HCL [Requip] 0.5 mg PO 5XD 02/13/21 02/16/21 Previous Rx's Medication Instructions Recorded Dicyclomine [Bentyl] 10 mg PO BID PRN #14 tablet 01/29/22 Allergies Allergy/AdvReac Type Severity Reaction Status Date / Time cephalexin [From Keflex] Allergy Unknown Verified 02/07/23 14:52 etodolac [From Lodine] Allergy Rash/Hives Verified 02/07/23 14:52 nabumetone [From Relafen] Allergy Rash/Hives Verified 02/07/23 14:52 naproxen [From Naprosyn] Allergy Rash/Hives Verified 02/07/23 14:52 NSAIDS (Non-Steroidal Allergy Rash/Hives Verified 02/07/23 14:52 Anti-Inflamma Review of Systems ROS Statement: Those systems with pertinent positive or pertinent negative responses have been documented in the HPI. ROS Other: All systems not noted in ROS Statement are negative. EKG Findings - EKG Comments: EKG Findings:: EKG performed at 13:05 sinus rhythm with a right bundle rate of 77 UT 290 QRS 1:30 QT/QTC 402/454 - EKG Results: EKG: interpreted by MELIDA Past Medical History Past Medical History: Cancer, CVA/TIA, GERD/Reflux, Hyperlipidemia, Osteoarthritis (OA), Pneumonia, Renal Disease, Rheumatoid Arthritis (RA) Additional Past Medical History / Comment(s): Pt recently admitted to [facility] on 04/14/20 with acute pancreatitis, recent U/s and biopsy of pancreas at [facility] and spouse states no cancer but large growth-to see pancreatic specialist, elevated LFT, possible past acute pancreatitis, iron anemia, nephrolithiasis with surgery, UTIs, pt being worked up for possible dementia, skin cancer removed from nose, UTIs, migraines, RLS, generalized pain d/t RA/OA, constipation, past ileus, IBS. History of Any Multi-Drug Resistant Organisms: None Reported Past Surgical History: Breast Surgery, Cholecystectomy, Hernia Repair, Joint Replacement, Orthopedic Surgery Additional Past Surgical History / Comment(s): Rotator cuff (R); Ric Knee Replacement; Panniculectomy, lizzie fundoplication/repair paraesophageal hernia, bilateral legs varicose vein surgery, colonoscopies-normal, bilateral cataract removal, FNA abdominal seroma, cystoscopy/bladder bx/lithotripsy with R ureteral stent, skin cancer removal, bilateral benign breast biopsies, bilateral feet/toe surgeries/4th R toe amp Past Anesthesia/Blood Transfusion Reactions: No Reported Reaction Additional Past Anesthesia/Blood Transfusion Reaction / Comment(s): Pt has received blood after panniculectomy without reaction. Past Psychological History: No Psychological Hx Reported Smoking Status: Never smoker Past Alcohol Use History: None Reported Past Drug Use History: None Reported - Past Family History Mother Family Medical History: Myocardial Infarction ([place]) Additional Family Medical History / Comment(s): Mother at age 69 yrs after having the flu and complicated by a [place]. Father Additional Family Medical History / Comment(s): IBS. Father at age 78yrs. General Exam Limitations: no limitations Course Vital Signs 02/07/23 02/07/23 12:49 14:55 Temperature 98.3 F Pulse Rate 81 76 Respiratory 20 20 Rate Blood Pressure 171/69 153/77 O2 Sat by Pulse 99 97 Oximetry Chest Pain MDM - MDM Was pt. sent in by a medical professional or institution ([facility], [employer], urgent care, hospital, or group home...) When possible be specific @ -No Did you speak to anyone other than the patient for history (EMS, parent, family, police, friend...)? What history was obtained from this source @ - in the room providing significant past medical history, medications and current complaint Did you review nursing and triage notes (agree or disagree)? Why? @ -I reviewed and agree with nursing and triage notes Were old charts reviewed (outside hosp., previous admission, EMS record, old EKG, old radiological studies, urgent care reports/EKG's, group home records)? Report findings @ -Reviewed past medical history, laboratory studies Differential Diagnosis (chest pain, altered mental status, abdominal pain women, abdominal pain men, vaginal bleeding, weakness, fever, dyspnea, syncope, headache, dizziness, GI bleed, back pain, seizure, CVA, palpatations, mental health, musculoskeletal)? @ -Differential Chest Pain: Stable Angina, Unstable Angina, STEMI, NSTEMI Aortic Dissection, Pneumothorax, Musculoskeletal, Esophageal Spasm GERD, Cholecystitis, Pancreatitis, Zoster, this is not meant to be an all-inclusive list. ble EKG interpreted by me (3pts min.). @ -As above X-rays interpreted by me (1pt min.). @ -Chest x-ray shows no acute cardiopulmonary process, no pneumothorax or infiltrate CT interpreted by me (1pt min.). @ -None done U/S interpreted by me (1pt. min.). @ -None done What testing was considered but not performed or refused? (CT, X-rays, U/S, labs)? Why? @ -None What meds were considered but not given or refused? Why? @ -None Did you discuss the management of the patient with other professionals (professionals i.e. , PA, [employer], lab, RT, psych nurse, administrator social welfare, infrastructure administrator, teacher, hydrographical technical officer, case mgr)? Give summary @ -Dr. Garcia for admission patient's PCP given patient's persistent left-sided chest pain with cardiac risk factors Was smoking cessation discussed for >3mins.? @ -No Was critical care preformed (if so, how long)? @ -No Were there social determinants of health that impacted care today? How? (Homelessness, low income, unemployed, alcoholism, drug addiction, transportation, low edu. Level, literacy, decrease access to med. care, [place] [facility], rehab)? @ -No Was there de-escalation of care discussed even if they declined (Discuss DNR or withdrawal of care, Hospice)? DNR status @ -No What co-morbidities impacted this encounter? (DM, HTN, Smoking, COPD, CAD, Cancer, CVA, ARF, Chemo, Hep., AIDS, mental health diagnosis, sleep apnea, morbid obesity)? @ -[Hypertension, hyperlipidemia Was patient admitted / discharged? Hospital course, mention meds given and route, prescriptions, significant lab abnormalities, going to OR and other pertinent info. @ -Admitted patient has complex left-sided chest pain with multiple risk factors. Patient be admitted for cardiac rule out with cardiology evaluation. Undiagnosed new problem with uncertain prognosis? @ -No Drug Therapy requiring intensive monitoring for toxicity (Heparin, Nitro, Insulin, Cardizem)? @ -No Were any procedures done? @ -No Diagnosis/symptom? @ -Chest pain Acute, or Chronic, or Acute on Chronic? @ -Acute Uncomplicated (without systemic symptoms) or Complicated (systemic symptoms)? @ -Uncomplicated Side effects of treatment? @ -No Exacerbation, Progression, or Severe Exacerbation? @ -No Poses a threat to life or bodily function? How? (Chest pain, [place], [place], pneumonia, PE, COPD, DKA, ARF, appy, cholecystitis, CVA, Diverticulitis, Homicidal, Suicidal, threat to staff... and all critical care pts) @ -Yes patient has chest pain, risk for cardiac arrest Disposition Clinical Impression: Chest pain Disposition: ADMITTED IP TO THIS HOSP Condition: Fair Referrals: Jh Garcia DO [Primary Care Provider] - 1-2 days Time of Disposition: 14:34
[2023-02-07 13:55] LABS: ALT 41 U/L (4-34); AST 51 U/L (14-36); African American GFR (CKD) >90 (>60 ml/min/1.73 sqM); Albumin 3.6 g/dL (3.5-5.0); Alkaline Phosphatase 46 U/L (38-126); Anion Gap 6 mmol/L; Blood Urea Nitrogen 19 mg/dL (7-17); Calcium 7.9 mg/dL (8.4-10.2); Carbon Dioxide 27 mmol/L (22-30); Chloride 104 mmol/L (98-107); Glucose 103 mg/dL (74-99); Magnesium 1.8 mg/dL (1.6-2.3); Non-African American GFR(CKD) >90 (>60 ml/min/1.73 sqM); Sodium 137 mmol/L (137-145); Total Bilirubin 1.3 mg/dL (0.2-1.3); Total Protein 6.7 g/dL (6.3-8.2)
[2023-02-07 13:58] LABS: INR 0.9 (<1.2); Prothrombin Time 9.8 sec (9.0-12.0)
[2023-02-07 13:59] LABS: Partial Thromboplastin Time 22.9 sec (22.0-30.0)
[2023-02-07 14:04] LABS: Potassium 4.5 mmol/L (3.5-5.1)
[2023-02-07] MEDS ORDERED: NITROGLYCERIN SL TABS 0.4 MG TAB SUBLINGUAL PRN (14:58)
[2023-02-07 20:35] LABS: Glucose,Whole Blood 96 mg/dL (70-110)
[2023-02-07] MEDS ORDERED: SUMAtriptan succinate 50 MG TAB PO PRN (21:22)
[2023-02-07] MEDS: ACETAMINOPHEN TAB 325 MG TAB PO PRN (21:26)
[2023-02-07] MEDS ORDERED: ATORVASTATIN 40 MG TAB PO SCH (21:30)
[2023-02-08] MEDS: PRAMIPEXOLE 0.25 MG TAB PO SCH ×2 (00:21→08:30)
[2023-02-08] MEDS: BACLOFEN 10 MG TAB PO SCH ×2 (00:21→08:30)
[2023-02-08] MEDS: DICYCLOMINE 10 MG CAP PO SCH ×2 (06:32→11:30)
[2023-02-08] MEDS: ACETAMINOPHEN TAB 325 MG TAB PO PRN (06:33)
[2023-02-08] MEDS ORDERED: PANTOPRAZOLE 40 MG TABLET PO SCH (07:30)
--- NOTE | 2023-02-08 08:37 | CONS ---
CONSULTATION CHIEF COMPLAINT: Chest pain. HISTORY OF PRESENT ILLNESS: This is an 82-year-old lady with history of dyslipidemia, hypertension, and chronic musculoskeletal pain who presented to hospital complaining of chest pain. She has precordial chest discomfort that is mild intensity, reproducible, gets worse with movements. She has history of dyslipidemia, but no prior documented history of coronary artery disease. She had a negative stress test in 2019, and an echocardiogram at that time revealed normal LV function with mild mitral regurgitation. An EKG on this admission showed sinus rhythm with right bundle branch block. Three sets of cardiac enzymes have all been negative. She has reproducible chest wall discomfort at the time of my evaluation. The plan at this stage is to obtain a 2D echo to evaluate her LV function and to rule out significant valvular heart disease and get her up, ambulate her, and discharge her home and follow her up as outpatient. PAST MEDICAL HISTORY: Significant for hypertension and dyslipidemia. CURRENT MEDICATIONS: Include methotrexate, Maxalt, Lipitor, Effexor, Mysoline, Mirapex, Bentyl, Macrobid, and omeprazole. ALLERGIES: Allergic to Keflex, Naprosyn, and Relafen. FAMILY HISTORY: Negative for premature coronary artery disease. SOCIAL HISTORY: Negative for smoking issues or drug abuse. REVIEW OF SYSTEMS: HEENT: Unremarkable. CARDIAC: As described above. RESPIRATORY: As described above. GI: Negative. GENITOURINARY: Negative. ALLERGY/IMMUNOLOGY: Negative. SKIN: Negative. MUSCULOSKELETAL: Significant for arthritis. PSYCHOSOCIAL: Negative. DERM: Negative. CONSTITUTIONAL: Negative. ONCOLOGICAL: Negative. GENERAL CLAIMS AGENT: Negative. Rest of the system review is not relevant. PHYSICAL EXAMINATION: GENERAL: Comfortable at rest. VITAL SIGNS: Stable NECK: There is no jugular venous distention. Carotid upstroke is normal. There is no bruit. CHEST: Good air entry bilaterally. HEART: First and second heart sounds. Systolic murmur at the apex. ABDOMEN: Soft. EXTREMITIES: Exam did not reveal any edema. Peripheral pulses are felt. LABORATORY DATA: Hemoglobin of 13, platelet count is 113. Potassium is 4.5, creatinine is 0.4. Troponin x3 is negative. ASSESSMENT AND PLAN: 1. Atypical chest pain, probably musculoskeletal. 2. Aortic stenosis. PLAN: I will obtain a 2D echo. Continue current medications. Ambulate. MMODL / IJN: [id number] /
[2023-02-08] MEDS ORDERED: VENLAFAXINE HCL ER 75 MG CAP PO SCH (09:00)
[2023-02-08] MEDS ORDERED: PRIMIDONE 50 MG TAB PO SCH (09:00)
[2023-02-08] MEDS ORDERED: FOLIC ACID 1 MG TAB PO SCH (09:00)
[2023-02-08] MEDS ORDERED: amLODIPine 5 MG TAB PO SCH (09:00)
[2023-02-08] MEDS ORDERED: ASPIRIN 325 MG TAB PO SCH (09:00)
--- NOTE | 2023-02-08 10:30 | CA ---
Transthoracic Echo Report Name: Monica Carolina Age: 82 Gender: F : 1940 Exam Date: 02/08/2023 09:06 Exam Location: [facility] Ht (in): 66 Wt (lb): 142 Ordering Physician: Henry Lee Attending/Referring Phys: [id number], [employer] Counter Clerk Clarence Caputo Procedure CPT: Indications: Chest Pain Cardiac Hx: Technical Quality: Fair Contrast 1: Total Dose (mL): Contrast 2: Total Dose (mL): MEASUREMENTS (Male / Female) Normal Values 2D ECHO LV Diastolic Diameter PLAX 4.0 cm 4.2 - 5.9 / 3.9 - 5.3 cm LV Systolic Diameter PLAX 2.6 cm IVS Diastolic Thickness 0.9 cm 0.6 - 1.0 / 0.6 - 0.9 cm LVPW Diastolic Thickness 1.4 cm 0.6 - 1.0 / 0.6 - 0.9 cm LV Relative Wall Thickness 0.6 RV Internal Dim ED PLAX 2.4 cm LVOT Diameter 1.8 cm Aortic Root Diameter 2.9 cm LA Systolic Diameter LX 2.2 cm 3.0 - 4.0 / 2.7 - 3.8 cm LV Diastolic Volume MOD BP 45.2 cm??? 67 - 155 / 56 - 104 cm??? LV Systolic Volume MOD BP 11.4 cm??? 22 - 58 / 19 - 49 cm??? LV Ejection Fraction MOD BP 74.7 % >= 55 % LV Diastolic Volume MOD 4C 51.6 cm??? LV Systolic Volume MOD 4C 13.6 cm??? LV Ejection Fraction MOD 4C 73.7 % LV Diastolic Length 4C 7.3 cm LV Systolic Length 4C 6.2 cm LV Diastolic Volume MOD 2C 36.5 cm??? LV Systolic Volume MOD 2C 9.0 cm??? LV Ejection Fraction MOD 2C 75.3 % LV Diastolic Length 2C 6.7 cm LV Systolic Length 2C 5.6 cm LA Volume 32.8 cm??? 18 - 58 / 22 - 52 cm??? Ascending Aorta Diameter 2.7 cm DOPPLER AV Peak Velocity 144.0 cm/s AV Peak Gradient 8.3 mmHg AV Mean Velocity 97.0 cm/s AV Mean Gradient 4.4 mmHg AV Velocity Time Integral 29.5 cm LVOT Peak Velocity 131.5 cm/s LVOT Peak Gradient 6.9 mmHg AV Area Cont Eq pk 2.3 cm??? MV Peak Velocity 121.3 cm/s MV Peak Gradient 5.9 mmHg MV Mean Velocity 63.5 cm/s MV Mean Gradient 2.0 mmHg MV Velocity Time Integral 28.3 cm Mitral E Point Velocity 74.0 cm/s Mitral A Point Velocity 100.4 cm/s Mitral E to A Ratio 0.7 MV Deceleration Time 198.4 ms TR Peak Velocity 244.2 cm/s TR Peak Gradient 23.8 mmHg Right Ventricular Systolic Press 29.0 mmHg PV Peak Velocity 107.7 cm/s PV Peak Gradient 4.6 mmHg FINDINGS Left Ventricle Left ventricular ejection fraction is estimated at 65-70 %. Right Ventricle Right ventricle at upper limits of normal. Right Atrium Normal right atrial size. Left Atrium Normal left atrial size. Mitral Valve Mild posterior MAC. Aortic Valve Mild to moderate AV calcification. Estimated AV Area =2.3cm2. Trace AI. Tricuspid Valve Tricuspid valve not well visualized. Mild TR. RVSP= 27mmhg Pulmonic Valve Pulmonic valve not well visualized. Mild PI. Pericardium Normal pericardium. Aorta Normal size aortic root and proximal ascending aorta. CONCLUSIONS Normal LV systolic function Aortic sclerosis without significant stenosis Previewed by: Dr. Booker Soto MD (Electronically Signed) Final Date: 08 February 2023 10:29
[2023-02-08 11:03] LABS: Chol/HDL Ratio 1.83 Ratio; LDL Cholesterol,Calculated 48.4 mg/dL (0.0-131.0)
[2023-02-08 15:16] VITALS: BP 127/66; PULSE 73; RESP 18; TEMP 98.1
--- NOTE | 2023-02-08 23:08 | P.HPIM ---
History of Present Illness H&P Date: 02/08/23 82-year-old female admitted from the emergency Department chief, chest pain. Patient states it's centralized left-sided chest pain. Patient states it started yesterday or last night and worsened throughout the night. She states she woke up severe pain. Patient states she symptoms have anxiety or panic attacks she took her medication that did not help. Patient does have a history of hypertension and hyperlipidemia has been a cardiac disease. Patient denies shortness breath but states it hurts to take a deep breath. No trauma no rashes noted. Review of Systems GENERAL: Patient denies fever. Denies chills. EYES: Denies blurred vision. Denies vision changes. Denies eye pain. EARS, NOSE, MOUTH, & THROAT: Denies headache. Denies sore throat. Denies ear pain. RESPIRATORY: Denies cough. Denies shortness of breath. Denies sputum production. Denies hemoptysis. CARDIOVASCULAR: chest pain with pressure. Denies palpitations. Denies arrhythmias. GASTROINTESTINAL: some abdominal pain. Denies diarrhea. Denies constipation. Denies nausea. Denies vomiting. Denies heartburn. Denies blood in the stool. GENITOURINARY: Denies urinary frequency. Denies burning. Denies dysuria. Denies cloudy urine. Denies blood in the urine. MUSCULOSKELETAL: Denies myalgias. Denies joint swelling. Denies decreased range of motion beyond patients baseline. INTEGUMENTARY: Denies pruitis. Denies rash. PSYCHIATRIC: Denies suicidal or homicial ideations. ENDOCRINE: Denies weight change. Denies polydipsia. Denies polyuria. HEMATOLOGIC: Denies bleeding disorders. Past Medical History Past Medical History: Cancer, CVA/TIA, GERD/Reflux, Hyperlipidemia, Osteoarthritis (OA), Pneumonia, Renal Disease, Rheumatoid Arthritis (RA) Additional Past Medical History / Comment(s): Pt recently admitted to [facility] on 04/14/20 with acute pancreatitis, recent U/s and biopsy of pancreas at [facility] and spouse states no cancer but large growth-to see pancreatic specialist, elevated LFT, possible past acute pancreatitis, iron anemia, nephrolithiasis with surgery, UTIs, pt being worked up for possible dementia, skin cancer removed from nose, UTIs, migraines, RLS, generalized pain d/t RA/OA, constipation, past ileus, IBS. History of Any Multi-Drug Resistant Organisms: None Reported Past Surgical History: Breast Surgery, Cholecystectomy, Hernia Repair, Joint Replacement, Orthopedic Surgery Additional Past Surgical History / Comment(s): Rotator cuff (R); Ric Knee Replacement; Panniculectomy, lizzie fundoplication/repair paraesophageal hernia, bilateral legs varicose vein surgery, colonoscopies-normal, bilateral cataract removal, FNA abdominal seroma, cystoscopy/bladder bx/lithotripsy with R ureteral stent, skin cancer removal, bilateral benign breast biopsies, bilateral feet/toe surgeries/4th R toe amp Past Anesthesia/Blood Transfusion Reactions: No Reported Reaction Additional Past Anesthesia/Blood Transfusion Reaction / Comment(s): Pt has received blood after panniculectomy without reaction. Past Psychological History: No Psychological Hx Reported Additional Psychological History / Comment(s): Pt resides with her spouse. She is normally independent. Smoking Status: Never smoker Past Alcohol Use History: None Reported Past Drug Use History: None Reported - Past Family History Mother Family Medical History: Myocardial Infarction ([place]) Additional Family Medical History / Comment(s): Mother at age 69 yrs after having the flu and complicated by a [place]. Father Additional Family Medical History / Comment(s): IBS. Father at age 78yrs. Medications and Allergies Home Medications Medication Instructions Recorded Confirmed Type metHOTREXate sodium [Methotrexate] 7.5 mg PO FR 10/06/18 02/07/23 History Atorvastatin Calcium [Lipitor] 40 mg PO HS 10/12/19 02/07/23 History Rizatriptan Odt [Maxalt MANAGER HEAVY DUTY] 10 mg PO DAILY PRN 04/14/20 02/07/23 History Baclofen [Lioresal] 20 mg PO BID 04/23/20 02/07/23 History Certolizumab Pegol [Cimzia] 400 mg SQ Q28D 04/23/20 02/07/23 History Dicyclomine [Bentyl] 10 mg PO ACHS 04/23/20 02/07/23 History Omeprazole 40 mg PO DAILY 02/13/21 02/07/23 History Folic Acid 1 mg PO DAILY 02/07/23 02/07/23 History Nitrofurantoin Monohyd/M-Cryst 100 mg PO DAILY 02/07/23 02/07/23 History [Macrobid] Pramipexole [Mirapex] 0.25 mg PO TID 02/07/23 02/07/23 History Primidone [Mysoline] 25 mg PO BID 02/07/23 02/07/23 History Simethicone [Gas-X] 125 mg PO DAILY PRN 02/07/23 02/07/23 History Venlafaxine HCl ER [Effexor XR] 75 mg PO DAILY 02/07/23 02/07/23 History amLODIPine [Norvasc] 5 mg PO DAILY 02/07/23 02/07/23 History Aspirin 325 mg PO DAILY tab 02/08/23 Rx Allergies Allergy/AdvReac Type Severity Reaction Status Date / Time cephalexin [From Keflex] Allergy Unknown Verified 02/07/23 15:08 etodolac [From Lodine] Allergy Rash/Hives Verified 02/07/23 15:08 nabumetone [From Relafen] Allergy Rash/Hives Verified 02/07/23 15:08 naproxen [From Naprosyn] Allergy Rash/Hives Verified 02/07/23 15:08 NSAIDS (Non-Steroidal Allergy Rash/Hives Verified 02/07/23 15:08 Anti-Inflamma Physical Exam Osteopathic Statement: *. No significant issues noted on an osteopathic structural exam other than those noted in the History and Physical/Consult. Vitals: Vital Signs Temp Pulse Pulse Resp BP BP Pulse Ox 02/08/23 09:19 96 02/08/23 07:00 98.4 F 79 20 171/75 96 02/08/23 02:00 89 02/08/23 00:38 98.6 F 89 15 138/71 94 L 02/07/23 21:45 75 177/74 02/07/23 20:30 72 18 02/07/23 19:18 98.5 F 72 16 170/75 95 02/07/23 19:00 78 18 134/78 99 FiO2 02/08/23 09:19 21 02/08/23 07:00 02/08/23 02:00 02/08/23 00:38 02/07/23 21:45 02/07/23 20:30 02/07/23 19:18 02/07/23 19:00 Intake and Output 02/08/23 02/08/23 02/08/23 06:59 14:59 22:59 Intake Total 118 Balance 118 Intake: Oral 118 Other: Voiding Method Toilet # Voids 2 3 GENERAL: This is a 82-year-old in no apparent distress at the time of examination. Pleasant and cooperative. HEENT: Head is atraumatic, normocephalic. Pupils are equal, round, and reactive to light. Sclerae anicteric. Conjunctivae are clear. Mucus membranes of the mouth are moist. Neck is supple. RESPIRATORY: Clear to auscultation. No wheezes. CARDIOVASCULAR: Regular rate and rhythm. GASTROINTESTINAL: No distention noted. Abdomen soft and round. Normal active bowel sounds auscultated x 4 quadrants. No pain or tenderness noted upon palpation. INTEGUMENTARY: No cyanosis. No jaundice. No rashes noted. No cellulitis noted. EXTREMITIES: 2+ peripheral pulses. No evidence of peripheral edema. No calf tenderness noted. NEUROLOGIC: Cranial nerves II-XII intact. PSYCHIATRIC: Awake, alert, and oriented X 3. Appropriate affect. Intact judgement and insight. Results CBC & Chem 7: 02/07/23 13:21 02/07/23 13:21 Labs: Abnormal Lab Results - Last 24 Hours (Table) 02/07/23 Range/Units 13:21 HDL Cholesterol 71.10 H (40.00-60.00) mg/dL Thrombosis Risk Factor Assmnt - Choose All That Apply Any of the Below Risk Factors Present?: No Other Risk Factors: Yes Each Risk Factor Represents 3 Points: Age 75 years or older Other congenital or acquired thrombophilia - If yes, enter type in comment: No Thrombosis Risk Factor Assessment Total Risk Factor Score: 3 Thrombosis Risk Factor Assessment Level: Moderate Risk Assessment and Plan (1) Abdominal pain Status: Acute Code(s): R10.9 - UNSPECIFIED ABDOMINAL PAIN SNOMED Code(s): 98176631 (2) Chest pain Status: Acute Priority: High Code(s): R07.9 - CHEST PAIN, UNSPECIFIED SNOMED Code(s): 44932833 (3) Dehydration Status: Acute Code(s): E86.0 - DEHYDRATION SNOMED Code(s): 05573643 Plan: Patient was admitted and ruled out for any ischemic type event with her chest pain determined to be more abdominal pain most likely related to GERD. She'll be discharged home today with her usual medications is been no additions to her medications at this time. End dictation Time with Patient: Greater than 30
--- NOTE | 2023-02-08 23:09 | P.DS ---
Providers Date of admission: 02/07/23 14:25 Expected date of discharge: 02/08/23 Attending physician: Jh Garcia Consults: 02/07/23 14:58 Consult Physician Urgent Consulting Provider: Uri Damon Consult Reason/Comments: chest pain Do you want consulting provider notified?: Yes Primary care physician: Jh Garcia - Discharge Diagnosis(es) (1) Abdominal pain Status: Acute (2) Chest pain Status: Acute Priority: High (3) Dehydration Status: Acute Hospital Course: Patient was admitted for 23 hour observation for atypical chest pain rule out ischemic event. See history and physical plan for discharge summary and results Patient Condition at Discharge: Fair Plan - Discharge Summary Discharge Rx Participant: No New Discharge Prescriptions: New Aspirin 325 mg PO DAILY tab Continue metHOTREXate sodium [Methotrexate] 7.5 mg PO FR Atorvastatin Calcium [Lipitor] 40 mg PO HS Rizatriptan Odt [Maxalt JUNIOR ANALYST] 10 mg PO DAILY PRN PRN Reason: Migraine Headache Certolizumab Pegol [Cimzia] 400 mg SQ Q28D Baclofen [Lioresal] 20 mg PO BID Dicyclomine [Bentyl] 10 mg PO ACHS Primidone [Mysoline] 25 mg PO BID Pramipexole [Mirapex] 0.25 mg PO TID Omeprazole 40 mg PO DAILY Venlafaxine HCl ER [Effexor XR] 75 mg PO DAILY Folic Acid 1 mg PO DAILY amLODIPine [Norvasc] 5 mg PO DAILY Simethicone [Gas-X] 125 mg PO DAILY PRN PRN Reason: GAS Nitrofurantoin Monohyd/M-Cryst [Macrobid] 100 mg PO DAILY Discharge Medication List metHOTREXate sodium [Methotrexate] 7.5 mg PO FR 10/06/18 [History] Atorvastatin Calcium [Lipitor] 40 mg PO HS 10/12/19 [History] Rizatriptan Odt [Maxalt JUNIOR ANALYST] 10 mg PO DAILY PRN 04/14/20 [History] Baclofen [Lioresal] 20 mg PO BID 04/23/20 [History] Certolizumab Pegol [Cimzia] 400 mg SQ Q28D 04/23/20 [History] Dicyclomine [Bentyl] 10 mg PO ACHS 04/23/20 [History] Omeprazole 40 mg PO DAILY 02/13/21 [History] Folic Acid 1 mg PO DAILY 02/07/23 [History] Nitrofurantoin Monohyd/M-Cryst [Macrobid] 100 mg PO DAILY 02/07/23 [History] Pramipexole [Mirapex] 0.25 mg PO TID 02/07/23 [History] Primidone [Mysoline] 25 mg PO BID 02/07/23 [History] Simethicone [Gas-X] 125 mg PO DAILY PRN 02/07/23 [History] Venlafaxine HCl ER [Effexor XR] 75 mg PO DAILY 02/07/23 [History] amLODIPine [Norvasc] 5 mg PO DAILY 02/07/23 [History] Aspirin 325 mg PO DAILY tab 02/08/23 [Rx] Follow up Appointment(s)/Referral(s): Jh Garcia DO [Primary Care Provider] - 1 Week Patient Instructions/Handouts: Chest Pain (DC) Discharge Disposition: HOME SELF-CARE
[2023-02-09] MEDS ORDERED: metHOTREXate sodium 2.5 MG TAB PO SCH (09:00)
[2023-02-21] MEDS ORDERED: NON FORMULARY DRUG (Certolizumab Pegol [Cimzia] 400 MG/2 ML Syringekit) SQ SCH (09:00)
== END 2023-02-08 15:56 | disposition home or self-care (01) ==
LOC: EC 12:48 → 6NMEDSUR 14:25
PROVIDERS: ADMIT Family Medicine; ATTEND Family Medicine
DX: R07.89 Other chest pain (principal); R10.9 Unspecified abdominal pain; E86.0 Dehydration; M19.012 Primary osteoarthritis, left shoulder; M19.011 Primary osteoarthritis, right shoulder; I10 Essential (primary) hypertension; E78.5 Hyperlipidemia, unspecified; M06.9 Rheumatoid arthritis, unspecified; D50.9 Iron deficiency anemia, unspecified; K21.9 Gastro-esophageal reflux disease without esophagitis; G25.81 Restless legs syndrome; I35.0 Nonrheumatic aortic (valve) stenosis; I70.0 Atherosclerosis of aorta; K59.00 Constipation, unspecified; I45.10 Unspecified right bundle-branch block; Z90.49 Acquired absence of other specified parts of digestive tract; Z79.82 Long term (current) use of aspirin; Z79.899 Other long term (current) drug therapy; Z88.8 Allergy status to other drugs, medicaments and biological substances; Z86.73 Personal history of transient ischemic attack (TIA), and cerebral infarction without residual deficits; Z87.440 Personal history of urinary (tract) infections; Z96.653 Presence of artificial knee joint, bilateral; Z98.42 Cataract extraction status, left eye; Z98.41 Cataract extraction status, right eye; Z82.49 Family history of ischemic heart disease and other diseases of the circulatory system; Z63.4 Disappearance and death of family member; Z83.79 Family history of other diseases of the digestive system; Z88.1 Allergy status to other antibiotic agents; Z85.828 Personal history of other malignant neoplasm of skin
CPT/HCPCS: 99285; 36415; 94760; 93005; 93306; 85379; 83880; 80061; 80053; 83735; 84484; 85025; 85610; 85730; 71046; G0378 ×2

== ENCOUNTER → 2023-02-12 | Outpatient (CLI) | payer MEDICARE ==
[2023-02-12 15:43] LABS: African American GFR (CKD) 80 (>60 ml/min/1.73 sqM); Blood Urea Nitrogen 33 mg/dL (7-17); Non-African American GFR(CKD) 70 (>60 ml/min/1.73 sqM)
--- NOTE | 2023-02-13 07:17 | CT ---
EXAMINATION TYPE: CT abdomen pelvis w con DATE OF EXAM: 02/12/2023 HISTORY: lower abd pain CT DLP: 538.2mGycm Automated Exposure Control for Dose Reduction was Utilized. CONTRAST: CT scan of the abdomen and pelvis is performed with IV Contrast, patient injected with 100 mL of Isov ue 300. COMPARISON: Prior CT January 28, 2022 and older studies FINDINGS: LUNG BASES: Coronary artery calcification is redemonstrated. LIVER/GB: Cholecystectomy clips are redemonstrated. Stable mild to moderate central intrahepatic and extra hepatic biliary dilatation. PANCREAS: Persistent dilated main pancreatic duct in the body measuring up to 16 mm axial image 27. SPLEEN: Stable subcentimeter hyperdense focus axial image 17 becomes isodense on delayed phase images . Consider flash filling hemangioma. ADRENALS: No significant abnormality is seen. KIDNEYS: Bilateral nephrolithiasis which is more numerous in the left kidney versus right kidney rede monstrated. Symmetric cortical medullary uptake and excretion without hydronephrosis seen bilaterally . BOWEL: Small size hiatal hernia redemonstrated. Oral contrast reaches the splenic flexure. There is n o suspicious small or large bowel dilatation. UTERUS/ADNEXA: There is 3.4 cm calcified fibroid in the left aspect of the uterus redemonstrated. The re is 3.0 cm low dense lesion in the right pelvis or ovary axial image 68 redemonstrated not signific antly changed from prior LYMPH NODES: No greater than 1cm abdominal or pelvic lymph nodes are appreciated. OSSEOUS STRUCTURES: Grade 1 retrolisthesis L2 on L3 and L3 on L4. There is severe disc space narrowin g L2-L3 and L3-L4 levels redemonstrated. OTHER: No significant additional abnormality is seen. IMPRESSION: No significant new or acute finding is seen to account for patient's clinical symptoms. B ilateral nephrolithiasis redemonstrated. Biliary dilatation and pancreatic ductal dilatation again se en. No significant interval change.
== END | disposition home or self-care (01) ==
LOC: RADCTMAIN 14:39
PROVIDERS: ATTEND Family Medicine
DX: N20.0 Calculus of kidney (principal); K92.1 Melena; R10.84 Generalized abdominal pain
CPT/HCPCS: 82565; 84520; 74177; 36415; Q9967

== ENCOUNTER → 2023-03-27 | Outpatient (CLI) | payer MEDICARE ==
--- NOTE | 2023-03-27 15:32 | MR ---
EXAMINATION TYPE: MR brain wo con DATE OF EXAM: 03/27/2023 COMPARISON: MRI 02/24/2017, CT brain 02/13/2021 HISTORY: Headaches, memory problems, CVA, atypical dementia CONTRAST: Performed utilizing 0 mL intravenous Gadavist gadolinium contrast. TECHNIQUE: Multiplanar, multiecho imaging on a 3.0 Elizabeth magnet is performed through the brain. Stud y is performed within 24 hours of arrival to the hospital. The craniovertebral junction is normal. The pituitary is normal. Diffusion-weighted imaging is performed. No abnormal hyperintensity is present to suggest an acute i ntracranial infarct or acute ischemic change. There is some mild white matter change in the left brainstem could be some white matter ischemic musa ges. This is nonacute on diffusion. There are additional deep white matter changes in the periventric ular white matter and centrum semiovale. Findings are nonspecific but can be compatible with chronic white matter ischemic-type changes. Findings were present previously and similar. Ventricles and sulci are appropriate for the patient age. IMPRESSIONS: 1. Scattered periventricular and deep white matter changes including the left brain stem likely on th e basis of chronic white matter ischemic change. Findings appear similar to the prior MRI.
== END | disposition home or self-care (01) ==
LOC: RADMRIMAIN 13:53
PROVIDERS: ATTEND Psychiatry & Neurology Neurology
DX: F03.90 Unspecified dementia, unspecified severity, without behavioral disturbance, psychotic disturbance, mood disturbance, and anxiety (principal); R90.82 White matter disease, unspecified
CPT/HCPCS: 70551

== ENCOUNTER 2023-04-19 06:49 | Day surgery (SDC) | payer MEDICARE ==
[2023-04-12 15:17] VITALS: BMI 21.7
[2023-04-19] MEDS ORDERED: LACTATED RINGERS 1,000 ML IV ONE (07:13)
[2023-04-19 07:21] VITALS: TEMP 97
--- NOTE | 2023-04-19 07:50 | P.GSHP ---
History of Present Illness H&P Date: 04/19/23 CHIEF COMPLAINT: GERD HISTORY OF PRESENT ILLNESS: The patient is a 83-year-old female who presents reports gastroesophageal reflux disease. Upper endoscopy was offered for further evaluation and management. PAST MEDICAL HISTORY: Please see list. PAST SURGICAL HISTORY: Please see list. MEDICATIONS: Please see list. ALLERGIES: Please see list. SOCIAL HISTORY: No illicit drug use FAMILY HISTORY: No reports of Crohn disease or ulcerative colitis. REVIEW OF ORGAN SYSTEMS: CONSTITUTIONAL: No reports of fevers or chills. GI: Denies any blood in stools or constipation. PHYSICAL EXAM: VITAL SIGNS: Stable GENERAL: Well-developed and pleasant in no acute distress. HEENT: No scleral icterus. Extraocular movements grossly intact. Moist buccal mucosa. NECK: Supple without lymphadenopathy. CHEST: Unlabored respirations. Equal bilateral excursions. CARDIOVASCULAR: Regular rate and rhythm. Distal 2+ pulses. ABDOMEN: Soft, nondistended. MUSCULOSKELETAL: No clubbing, cyanosis, or edema. ASSESSMENT: 1. Gastroesophageal reflux disease PLAN: 1. Recommend proceeding with an upper endoscopy Past Medical History Past Medical History: Cancer, CVA/TIA, GERD/Reflux, Hyperlipidemia, Osteoarthritis (OA), Pneumonia, Renal Disease, Rheumatoid Arthritis (RA) Additional Past Medical History / Comment(s): pancreatitis, U/s and biopsy of pancreas at [facility], anemia, kidney stones/UTIs, skin cancer, migraines, RLS, generalized pain d/t RA/OA, constipation, past ileus, IBS History of Any Multi-Drug Resistant Organisms: None Reported Past Surgical History: Breast Surgery, Cholecystectomy, Hernia Repair, Joint Replacement, Orthopedic Surgery Additional Past Surgical History / Comment(s): Rotator cuff (R); Ric Knee Replacement; Panniculectomy, lizzie fundoplication/repair paraesophageal hernia, bilateral legs varicose vein surgery, colonoscopies-normal, bilateral cataract removal, FNA abdominal seroma, cystoscopy/bladder bx/lithotripsy with R ureteral stent, skin cancer removal, bilateral benign breast biopsies, bilateral feet/toe surgeries/4th R toe amp Past Anesthesia/Blood Transfusion Reactions: No Reported Reaction Additional Past Anesthesia/Blood Transfusion Reaction / Comment(s): Pt has received blood after panniculectomy without reaction. Past Psychological History: No Psychological Hx Reported Smoking Status: Never smoker Past Alcohol Use History: None Reported Past Drug Use History: None Reported - Past Family History Mother Family Medical History: Myocardial Infarction ([place]) Additional Family Medical History / Comment(s): Mother at age 69 yrs after having the flu and complicated by a [place]. Father Additional Family Medical History / Comment(s): IBS. Father at age 78yrs. Medications and Allergies Home Medications Medication Instructions Recorded Confirmed Type Atorvastatin Calcium [Lipitor] 40 mg PO HS 10/12/19 04/19/23 History Baclofen [Lioresal] 10 mg PO BID 04/23/20 04/19/23 History Dicyclomine [Bentyl] 10 mg PO QID 04/23/20 04/19/23 History Nitrofurantoin Monohyd/M-Cryst 100 mg PO DAILY 02/07/23 04/19/23 History [Macrobid] Primidone [Mysoline] 25 mg PO BID 02/07/23 04/19/23 History Venlafaxine HCl ER [Effexor XR] 75 mg PO DAILY 02/07/23 04/19/23 History amLODIPine [Norvasc] 5 mg PO DAILY 02/07/23 04/19/23 History rOPINIRole HCL [Requip] 1 mg PO TID 04/12/23 04/19/23 History Allergies Allergy/AdvReac Type Severity Reaction Status Date / Time cephalexin [From Keflex] Allergy Unknown Verified 04/19/23 07:17 etodolac [From Lodine] Allergy Rash/Hives Verified 04/19/23 07:17 nabumetone [From Relafen] Allergy Rash/Hives Verified 04/19/23 07:17 naproxen [From Naprosyn] Allergy Rash/Hives Verified 04/19/23 07:17 NSAIDS (Non-Steroidal Allergy Rash/Hives Verified 04/19/23 07:17 Anti-Inflamma Surgical - Exam Vital Signs Temp Pulse Resp BP Pulse Ox 97.0 F L 62 18 158/70 95 04/19/23 07:12 04/19/23 07:12 04/19/23 07:12 04/19/23 07:12 04/19/23 07:12
[2023-04-19] MEDS ORDERED: PROPOFOL 10 MG/ML 20 ML VIAL IV ONE (08:13)
[2023-04-19] MEDS ORDERED: LIDOCAINE 2% INJ 20 MG/ML (2 ML VIAL) ONE (08:13)
[2023-04-19 08:37] VITALS: RESP 14
--- NOTE | 2023-04-19 08:48 | P.PCN ---
Date of Procedure: 04/19/23 Description of Procedure: PREOPERATIVE DIAGNOSIS: Gastroesophageal reflux disease. Hiatal hernia POSTOPERATIVE DIAGNOSIS: Gastroesophageal reflux disease. Erosive esophagitis Esophageal ulcers Gastritis, chronic Diaphragmatic hiatal hernia OPERATION: Esophagogastroduodenoscopy with biopsies along antrum and duodenum, and esophagus SURGEON: Teodora Wilkinson MD ANESTHESIA: MAC. INDICATIONS: The patient is a 83-year-old female who presents with reflux disease. Benefits and risks of the procedure were described. Informed consent was obtained. DESCRIPTION: The patient was brought into the endoscopy suite and laid in the left lateral decubitus position. An Olympus gastroscope was passed along the posterior oropharynx down to the distal esophagus where the squamocolumnar junction was encountered at 40 cm from the incisors. The stomach was entered and no bile reflux was found. Additional findings are listed below. Biopsies with cold forceps were obtained of the antrum. The first through third portion of the duodenum was examined. Retroflexion of the scope confirmed Hill grade 3 lower e sophageal valve. The squamocolumnar junction demonstrated LA grade B erosive esophagitis. The stomach was desufflated. The patient tolerated the procedure well. FINDINGS: Squamocolumnar junction 38 cm from the incisors. Diaphragmatic hiatus at 40 cm. Hiatal hernia, 4 cm Hill grade 2 lower esophageal valve. LA grade C erosive esophagitis. Biopsies obtained of the duodenum. Chronic gastritis with biopsies obtained. Active esophageal ulcers and 33 to 38 centimeters from the incisors Slipped Joel fundoplasty RECOMMENDATIONS: Recommend repair of slipped Joel fundoplasty Carafate 1 g twice a day Plan - Discharge Summary Discharge Rx Participant: No New Discharge Prescriptions: New Sucralfate [Carafate] 1 gm PO BID #60 tablet Continue Atorvastatin Calcium [Lipitor] 40 mg PO HS Baclofen [Lioresal] 10 mg PO BID Dicyclomine [Bentyl] 10 mg PO QID Primidone [Mysoline] 25 mg PO BID rOPINIRole HCL [Requip] 1 mg PO TID Venlafaxine HCl ER [Effexor XR] 75 mg PO DAILY amLODIPine [Norvasc] 5 mg PO DAILY Nitrofurantoin Monohyd/M-Cryst [Macrobid] 100 mg PO DAILY Discharge Medication List Atorvastatin Calcium [Lipitor] 40 mg PO HS 10/12/19 [History] Baclofen [Lioresal] 10 mg PO BID 04/23/20 [History] Dicyclomine [Bentyl] 10 mg PO QID 04/23/20 [History] Nitrofurantoin Monohyd/M-Cryst [Macrobid] 100 mg PO DAILY 02/07/23 [History] Primidone [Mysoline] 25 mg PO BID 02/07/23 [History] Venlafaxine HCl ER [Effexor XR] 75 mg PO DAILY 02/07/23 [History] amLODIPine [Norvasc] 5 mg PO DAILY 02/07/23 [History] rOPINIRole HCL [Requip] 1 mg PO TID 04/12/23 [History] Sucralfate [Carafate] 1 gm PO BID #60 tablet 04/19/23 [Rx] Follow up Appointment(s)/Referral(s): Teodora Wilkinson MD [STAFF PHYSICIAN] - 05/15/23 10:30 am Patient Instructions/Handouts: Hiatal Hernia (DC), GERD (Gastroesophageal R eflux Disease) (DC) Discharge Disposition: HOME SELF-CARE
[2023-04-19 09:05] VITALS: BP 136/71; PULSE 65
== END 2023-04-19 09:24 | disposition home or self-care (01) ==
LOC: ORWHC2ENDO 06:49
PROVIDERS: ATTEND Surgery Plastic and Reconstructive Surgery
DX: K21.00 Gastro-esophageal reflux disease with esophagitis, without bleeding (principal); K22.10 Ulcer of esophagus without bleeding; K29.50 Unspecified chronic gastritis without bleeding; K44.9 Diaphragmatic hernia without obstruction or gangrene; K21.9 Gastro-esophageal reflux disease without esophagitis; E78.5 Hyperlipidemia, unspecified; M19.90 Unspecified osteoarthritis, unspecified site; Z79.899 Other long term (current) drug therapy; Z86.73 Personal history of transient ischemic attack (TIA), and cerebral infarction without residual deficits; Z90.49 Acquired absence of other specified parts of digestive tract; Z96.653 Presence of artificial knee joint, bilateral; Z82.49 Family history of ischemic heart disease and other diseases of the circulatory system; Z83.79 Family history of other diseases of the digestive system; Z88.1 Allergy status to other antibiotic agents; Z88.6 Allergy status to analgesic agent
CPT/HCPCS: 88305; 88312; 43239; J2704; J2001

== ENCOUNTER 2023-09-01 07:43 | Emergency (ER) | payer MEDICARE ==
[2023-09-01] MEDS ORDERED: MORPHINE SULFATE 4 MG/ML SYRINGE IVP STA (08:03)
--- NOTE | 2023-09-01 08:05 | ED ---
General Adult HPI - General Stated complaint: possible gout in right arm Time Seen by Provider: 09/01/23 07:54 Source: patient, family, RN notes reviewed Limitations: no limitations - History of Present Illness Initial comments: Patient is a pleasant 83-year-old female presenting to the emergency department with concerns for right wrist pain. Onset of symptoms was just the past day or 2. Patient has discomfort mostly of the right dorsal wrist. Discomfort does increase with movement. No fevers. Patient has noticed some redness. He should does have history of similar symptoms years ago of her foot associated with gout. - Related Data Home Medications Medication Instructions Recorded Confirmed Atorvastatin Calcium [Lipitor] 40 mg PO HS 10/12/19 04/19/23 Baclofen [Lioresal] 10 mg PO BID 04/23/20 04/19/23 Dicyclomine [Bentyl] 10 mg PO QID 04/23/20 04/19/23 Nitrofurantoin Monohyd/M-Cryst 100 mg PO DAILY 02/07/23 04/19/23 [Macrobid] Primidone [Mysoline] 25 mg PO BID 02/07/23 04/19/23 Venlafaxine HCl ER [Effexor XR] 75 mg PO DAILY 02/07/23 04/19/23 amLODIPine [Norvasc] 5 mg PO DAILY 02/07/23 04/19/23 rOPINIRole HCL [Requip] 1 mg PO TID 04/12/23 04/19/23 Previous Rx's Medication Instructions Recorded Sucralfate [Carafate] 1 gm PO BID #60 tablet 04/19/23 Indomethacin [Indocin] 50 mg PO TID PRN #20 capsule 09/01/23 Sulfamethox-Tmp 800-160Mg [Bactrim 1 each PO Q12HR #14 tab 09/01/23 DS 800-160 mg] Allergies Allergy/AdvReac Type Severity Reaction Status Date / Time cephalexin [From Keflex] Allergy Unknown Verified 09/01/23 08:08 etodolac [From Lodine] Allergy Rash/Hives Verified 09/01/23 08:08 nabumetone [From Relafen] Allergy Rash/Hives Verified 09/01/23 08:08 naproxen [From Naprosyn] Allergy Rash/Hives Verified 09/01/23 08:08 NSAIDS (Non-Steroidal Allergy Rash/Hives Verified 09/01/23 08:08 Anti-Inflamma Review of Systems ROS Statement: Those systems with pertinent positive or pertinent negative responses have been documented in the HPI. ROS Other: All systems not noted in ROS Statement are negative. Constitutional: Denies: fever Eyes: Denies: eye pain ENT: Denies: ear pain Respiratory: Denies: cough Cardiovascular: Denies: chest pain Endocrine: Denies: fatigue Gastrointestinal: Denies: abdominal pain Genitourinary: Denies: urgency Skin: Reports: as per HPI Past Medical History Past Medical History: Cancer, CVA/TIA, GERD/Reflux, Hyperlipidemia, Osteoarthritis (OA), Pneumonia, Renal Disease, Rheumatoid Arthritis (RA) Additional Past Medical History / Comment(s): pancreatitis, U/s and biopsy of pancreas at [facility], anemia, kidney stones/UTIs, skin cancer, migraines, RLS, generalized pain d/t RA/OA, constipation, past ileus, IBS History of Any Multi-Drug Resistant Organisms: None Reported Past Surgical History: Breast Surgery, Cholecystectomy, Hernia Repair, Joint Replacement, Orthopedic Surgery Additional Past Surgical History / Comment(s): Rotator cuff (R); Ric Knee Replacement; Panniculectomy, lizzie fundoplication/repair paraesophageal hernia, bilateral legs varicose vein surgery, colonoscopies-normal, bilateral cataract removal, FNA abdominal seroma, cystoscopy/bladder bx/lithotripsy with R ureteral stent, skin cancer removal, bilateral benign breast biopsies, bilateral feet/toe surgeries/4th R toe amp Past Anesthesia/Blood Transfusion Reactions: No Reported Reaction Additional Past Anesthesia/Blood Transfusion Reaction / Comment(s): Pt has received blood after panniculectomy without reaction. Past Psychological History: No Psychological Hx Reported Smoking Status: Never smoker Past Alcohol Use History: None Reported Past Drug Use History: None Reported - Past Family History Mother Family Medical History: Myocardial Infarction (CA) Additional Family Medical History / Comment(s): Mother at age 69 yrs after having the flu and complicated by a CA. Father Additional Family Medical History / Comment(s): IBS. Father at age 78yrs. General Exam Limitations: no limitations General appearance: alert, in no apparent distress Head exam: Present: normocephalic Eye exam: Present: normal appearance Neck exam: Present: normal inspection Respiratory exam: Present: normal lung sounds bilaterally Cardiovascular Exam: Present: regular rate, normal rhythm Expanded Peripheral pulses: 2+: Radial (R) GI/Abdominal exam: Present: soft. Absent: tenderness Extremities exam: Present: other (Right dorsal wrist with erythema and warmth. Moderate tenderness. Minimal swelling. Pain with range of motion. Distally the extremity is neurovascularly intact.) Neurological exam: Present: alert. Absent: motor sensory deficit Psychiatric exam: Present: normal affect, normal mood Skin exam: Present: erythema (Right dorsal wrist) Course Vital Signs 09/01/23 08:05 Temperature 98 F Pulse Rate 64 Respiratory 18 Rate Blood Pressure 132/65 O2 Sat by Pulse 98 Oximetry Procedures - Orthopedic Splinting/Casting Injury #1 Side: right Upper Extremity Injury Location: short arm, wrist Upper Extremity Immobilizer: volar splint Medical Decision Making - Medical Decision Making Was pt. sent in by a medical professional or institution (, PA, PNP, urgent care, hospital, or prison...) When possible be specific @ -No Did you speak to anyone other than the patient for history (EMS, parent, family, police, friend...)? What history was obtained from this source @ - is present and helps right history including history of previous gout. Did you review nursing and triage notes (agree or disagree)? Why? @ -I reviewed and agree with nursing and triage notes Were old charts reviewed (outside hosp., previous admission, EMS record, old EKG, old radiological studies, urgent care reports/EKG's, prison records)? Report findings @ -No old charts were reviewed Differential Diagnosis (chest pain, altered mental status, abdominal pain women, abdominal pain men, vaginal bleeding, weakness, fever, dyspnea, syncope, headache, dizziness, GI bleed, back pain, seizure, CVA, palpatations, mental health, musculoskeletal)? @ -Differential Musculoskeletal Muscular strain, contusion, ligament sprain, fracture, arthritis, septic arthritis, bursitis, cellulitis, muscle spasm, nerve compression, DVT, arterial occlusion, herpes zoster, electrolyte abnormality, tumor.... This is not meant to be in all inclusive list EKG interpreted by me (3pts min.). @ -As above X-rays interpreted by me (1pt min.). @ -X-ray shows arthritic changes. CT interpreted by me (1pt min.). @ -None done U/S interpreted by me (1pt. min.). @ -None done What testing was considered but not performed or refused? (CT, X-rays, U/S, labs)? Why? @ -None What meds were considered but not given or refused? Why? @ -None Did you discuss the management of the patient with other professionals (prof morales i.e. , PA, PNP, lab, RT, psych nurse, geriatric social work professor, historian research assistant, teacher, probation officer, field nurse case manager)? Give summary @ -No Was smoking cessation discussed for >3mins.? @ -No Was critical care preformed (if so, how long)? @ -No Were there social determinants of health that impacted care today? How? (Homelessness, low income, unemployed, alcoholism, drug addiction, transportat ion, low edu. Level, literacy, decrease access to med. care, skilled nursing, rehab)? @ -No Was there de-escalation of care discussed even if they declined (Discuss DNR or withdrawal of care, Hospice)? DNR status @ -No What co-morbidities impacted this encounter? (DM, HTN, Smoking, COPD, CAD, Cancer, CVA, ARF, Chemo, Hep., AIDS, mental health diagnosis, sleep apnea, morbid obesity)? @ -History of both rheumatoid and osteoarthritis. Was patient admitted / discharged? Hospital course, mention meds given and route, prescriptions, significant lab abnormalities, going to OR and other pertinent info. @ -Patient reevaluated with some improvement. Discussion regarding medicat ions. Patient is receptive to trying anti-inflammatories. Splint placed to help patient comfort. Antibiotics will be started for low risk of potential infection component. Patient is felt more to have mono arthralgia, possibly gout. Patient is recommended follow-up with her doctor and orthopedics and return for fever or worsening symptoms. Undiagnosed new problem with uncertain prognosis? @ -No Drug Therapy requiring intensive monitoring for toxicity (Heparin, Nitro, Insulin, Cardizem)? @ -No Were any procedures done? @ -No Diagnosis/symptom? @ -Crook arthralgia Acute, or Chronic, or Acute on Chronic? @ -Acute Uncomplicated (without systemic symptoms) or Complicated (systemic symptoms)? @ -default Side effects of treatment? @ -No Exacerbation, Progression, or Severe Exacerbation? @ -No Poses a threat to life or bodily function? How? (Chest pain, USA, CA, pneumonia, PE, COPD, DKA, ARF, appy, cholecystitis, CVA, Diverticulitis, Homicidal, Suicidal, threat to staff... and all critical care pts) @ -No - Lab Data Result diagrams: 09/01/23 08:22 09/01/23 08:25 Lab Results 09/01/23 09/01/23 Range/Units 08:22 08:25 WBC 6.8 (3.8-10.6) k/uL RBC 4.43 (3.80-5.40) m/uL Hgb 14.5 (11.4-16.0) gm/dL Hct 44.3 (34.0-46.0) % MCV 100.1 H (80.0-100.0) fL MCH 32.7 (25.0-35.0) pg MCHC 32.7 (31.0-37.0) g/dL RDW 12.8 (11.5-15.5) % Plt Count 149 L (150-450) k/uL MPV 7.7 Neutrophils % 69 % Lymphocytes % 21 % Monocytes % 8 % Eosinophils % 0 % Basophils % 0 % Neutrophils # 4.7 (1.3-7.7) k/uL Lymphocytes # 1.4 (1.0-4.8) k/uL Monocytes # 0.6 (0-1.0) k/uL Eosinophils # 0.0 (0-0.7) k/uL Basophils # 0.0 (0-0.2) k/uL Sodium 138 (137-145) mmol/L Potassium 4.0 (3.5-5.1) mmol/L Chloride 101 (98-107) mmol/L Carbon Dioxide 27 (22-30) mmol/L Anion Gap 10 mmol/L BUN 17 (7-17) mg/dL Creatinine 0.66 (0.52-1.04) mg/dL Est GFR (CKD-EPI)AfAm >90 (>60 ml/min/1.73 sqM) Est GFR (CKD-EPI)NonAf 83 (>60 ml/min/1.73 sqM) Glucose 135 H (74-99) mg/dL Uric Acid 3.4 L (3.7-7.4) mg/dL Calcium 9.3 (8.4-10.2) mg/dL Total Bilirubin 1.4 H (0.2-1.3) mg/dL AST 31 (14-36) U/L ALT 31 (4-34) U/L Alkaline Phosphatase 74 (38-126) U/L C-Reactive Protein 2.4 H (<1.0) mg/dL Total Protein 7.1 (6.3-8.2) g/dL Albumin 4.1 (3.5-5.0) g/dL Disposition Clinical Impression: Arthralgia Disposition: HOME SELF-CARE Condition: Stable Instructions (If sedation given, give patient instructions): Arthralgia (ED), Gout (ED) Additional Instructions: Prescriptions have been sent to pharmacy. Please do follow-up with your doctor in one to 2 days for recheck. Return for fever, increased redness, increased pain or swelling, worsening symptoms, intolerance to prescription, or any other Concerns. Prescriptions: Sulfamethox-Tmp 800-160Mg [Bactrim DS 800-160 mg] 1 each PO Q12HR #14 tab Indomethacin [Indocin] 50 mg PO TID PRN #20 capsule PRN Reason: Pain Is patient prescribed a controlled substance at d/c from ED?: No Referrals: Jh Garcia DO [Primary Care Provider] - 1-2 days Time of Disposition: 09:58
[2023-09-01] MEDS ORDERED: MORPHINE SULFATE 4 MG/ML SYRINGE IM STA (08:47)
--- NOTE | 2023-09-01 09:03 | XR ---
EXAMINATION TYPE: XR wrist complete RT DATE OF EXAM: 09/01/2023 8:57 AM CLINICAL INDICATION:Female, 83 years old with history of pain, red; [facility] COMPARISON: 11/25/2020. TECHNIQUE: XR wrist complete RT; examined in the Frontal, navicular, lateral, and oblique. FINDINGS/IMPRESSION: * Severe degeneration changes throughout the joints of the hand. Findings worse at the first digit i nterphalangeal joint. * Soft tissue swelling noted on lateral view over metatarsophalangeal joints unclear if it's the sec ond or third joint. No osseous erosion to suggest osteomyelitis. * No evidence of fracture.
[2023-09-01 09:06] LABS: Basophils % (A) 0 %; Eosinophils % (A) 0 %; HCT 44.3 % (34.0-46.0); HGB 14.5 gm/dL (11.4-16.0); Lymphocytes # (A) 1.4 k/uL (1.0-4.8); Lymphocytes % (A) 21 %; MCH 32.7 pg (25.0-35.0); MCHC 32.7 g/dL (31.0-37.0); MCV 100.1 fL (80.0-100.0); Mean Platelet Volume 7.7; Monocytes # (A) 0.6 k/uL (0-1.0); Monocytes % (A) 8 %; Neutrophils # (A) 4.7 k/uL (1.3-7.7); Neutrophils % (A) 69 %; Platelet Count 149 k/uL (150-450); RBC 4.43 m/uL (3.80-5.40); RDW 12.8 % (11.5-15.5); WBC 6.8 k/uL (3.8-10.6)
[2023-09-01 09:20] LABS: ALT 31 U/L (4-34); AST 31 U/L (14-36); African American GFR (CKD) >90 (>60 ml/min/1.73 sqM); Albumin 4.1 g/dL (3.5-5.0); Alkaline Phosphatase 74 U/L (38-126); Anion Gap 10 mmol/L; Blood Urea Nitrogen 17 mg/dL (7-17); C Reactive Protein 2.4 mg/dL (<1.0); Calcium 9.3 mg/dL (8.4-10.2); Carbon Dioxide 27 mmol/L (22-30); Chloride 101 mmol/L (98-107); Glucose 135 mg/dL (74-99); Non-African American GFR(CKD) 83 (>60 ml/min/1.73 sqM); Sodium 138 mmol/L (137-145); Total Bilirubin 1.4 mg/dL (0.2-1.3); Total Protein 7.1 g/dL (6.3-8.2); Uric Acid 3.4 mg/dL (3.7-7.4)
[2023-09-01] MEDS ORDERED: INDOMETHACIN 25 MG CAP PO STA (09:43)
[2023-09-01] MEDS ORDERED: ACET/COD 300 MG/30 MG STARTER PACK 6 TAB BTL PO STA (09:53)
[2023-09-01 10:20] VITALS: BP 147/67; PULSE 76; RESP 16; TEMP 97.9
== END 2023-09-01 10:17 | disposition home or self-care (01) ==
LOC: EC 07:43
DX: M25.531 Pain in right wrist (principal); E78.5 Hyperlipidemia, unspecified; Z79.899 Other long term (current) drug therapy; Z88.6 Allergy status to analgesic agent; Z88.1 Allergy status to other antibiotic agents; Z88.8 Allergy status to other drugs, medicaments and biological substances
CPT/HCPCS: 36415; 80053; 84550; 85025; 86140; 87040; 73110; 99284; 96372; 29125; J2270

== ENCOUNTER 2023-09-11 09:50 | Emergency (ER) | payer MEDICARE ==
[2023-09-11 10:38] VITALS: RESP 18
[2023-09-11] MEDS ORDERED: MORPHINE SULFATE 2 MG/ML SYRINGE IVP STA (10:46)
[2023-09-11] MEDS ORDERED: DEXAMETHASONE SOD PHOSPHATE 10 MG/ML 1 ML VIAL IVP STA (10:46)
[2023-09-11] MEDS ORDERED: SODIUM CHLORIDE 0.9% 1,000 ML IV STA (10:46)
[2023-09-11] MEDS ORDERED: ORPHENADRINE 30 MG/ML 2 ML VIAL IVP STA (10:46)
--- NOTE | 2023-09-11 11:01 | ED ---
Extremity Problem HPI - General Chief complaint: Extremity Problem,Nontraumatic Stated complaint: L Arm Pain,Weakness Time Seen by Provider: 09/11/23 10:37 Source: patient, RN notes reviewed Mode of arrival: ambulatory Limitations: no limitations - History of Present Illness Initial comments: This is an 83-year-old female who presents to the emergency department for left arm pain. States that this started yesterday. Pain started in the shoulder and has since started to go down the arm. Denies any injuries. Pain is worse with movement. Denies any chest pain or shortness of breath. She does have some pain in the neck as well. She had pain medication at home that was left over from a prior prescription which she took. However, she is unsure what this was. States that it was mildly effective. Denies any history of similar symptoms in the past. MD Complaint: extremity pain - Related Data Home Medications Medication Instructions Recorded Confirmed Atorvastatin Calcium [Lipitor] 40 mg PO HS 10/12/19 04/19/23 Baclofen [Lioresal] 10 mg PO BID 04/23/20 04/19/23 Dicyclomine [Bentyl] 10 mg PO QID 04/23/20 04/19/23 Nitrofurantoin Monohyd/M-Cryst 100 mg PO DAILY 02/07/23 04/19/23 [Macrobid] Primidone [Mysoline] 25 mg PO BID 02/07/23 04/19/23 Venlafaxine HCl ER [Effexor XR] 75 mg PO DAILY 02/07/23 04/19/23 amLODIPine [Norvasc] 5 mg PO DAILY 02/07/23 04/19/23 rOPINIRole HCL [Requip] 1 mg PO TID 04/12/23 04/19/23 Previous Rx's Medication Instructions Recorded Sucralfate [Carafate] 1 gm PO BID #60 tablet 04/19/23 Indomethacin [Indocin] 50 mg PO TID PRN #20 capsule 09/01/23 Sulfamethox-Tmp 800-160Mg [Bactrim 1 each PO Q12HR #14 tab 09/01/23 DS 800-160 mg] methocarbamoL [Robaxin-750] 1,500 mg PO TID PRN #30 tab 09/11/23 predniSONE 50 mg PO DAILY 5 Days #5 tab 09/11/23 Allergies Allergy/AdvReac Type Severity Reaction Status Date / Time cephalexin [From Keflex] Allergy Unknown Verified 09/11/23 10:18 etodolac [From Lodine] Allergy Rash/Hives Verified 09/11/23 10:18 nabumetone [From Relafen] Allergy Rash/Hives Verified 09/11/23 10:18 naproxen [From Naprosyn] Allergy Rash/Hives Verified 09/11/23 10:18 NSAIDS (Non-Steroidal Allergy Rash/Hives Verified 09/11/23 10:18 Anti-Inflamma Review of Systems ROS Statement: Those systems with pertinent positive or pertinent negative responses have been documented in the HPI. ROS Other: All systems not noted in ROS Statement are negative. Past Medical History Past Medical History: Cancer, CVA/TIA, GERD/Reflux, Hyperlipidemia, Osteoarthritis (OA), Pneumonia, Renal Disease, Rheumatoid Arthritis (RA) Additional Past Medical History / Comment(s): pancreatitis, U/s and biopsy of pancreas at [facility], anemia, kidney stones/UTIs, skin cancer, migraines, RLS, generalized pain d/t RA/OA, constipation, past ileus, IBS History of Any Multi-Drug Resistant Organisms: None Reported Past Surgical History: Breast Surgery, Cholecystectomy, Hernia Repair, Joint Replacement, Orthopedic Surgery Additional Past Surgical History / Comment(s): Rotator cuff (R); Ric Knee Replacement; Panniculectomy, lizzie fundoplication/repair paraesophageal hernia, bilateral legs varicose vein surgery, colonoscopies-normal, bilateral cataract removal, FNA abdominal seroma, cystoscopy/bladder bx/lithotripsy with R ureteral stent, skin cancer removal, bilateral benign breast biopsies, bilateral feet/toe surgeries/4th R toe amp Past Anesthesia/Blood Transfusion Reactions: No Reported Reaction Additional Past Anesthesia/Blood Transfusion Reaction / Comment(s): Pt has received blood after panniculectomy without reaction. Past Psychological History: No Psychological Hx Reported Smoking Status: Never smoker Past Alcohol Use History: None Reported Past Drug Use History: None Reported - Past Family History Mother Family Medical History: Myocardial Infarction (MN) Additional Family Medical History / Comment(s): Mother at age 69 yrs after having the flu and complicated by a MN. Father Additional Family Medical History / Comment(s): IBS. Father at age 78yrs. General Exam Limitations: no limitations General appearance: alert, in no apparent distress Head exam: Present: atraumatic, normocephalic, normal inspection Neck exam: Present: tenderness (Left and posterior cervical spine) Respiratory exam: Present: normal lung sounds bilaterally. Absent: respiratory distress, wheezes, rales, rhonchi, stridor Cardiovascular Exam: Present: regular rate, normal rhythm, normal heart sounds. Absent: systolic murmur, diastolic murmur, rubs, gallop, clicks Extremities exam: Present: other (Tenderness to palpation over the left humeral head pain and pain with range of motion of the left upper extremity. No deformities.) Neurological exam: Present: alert, oriented X3, CN II-XII intact Psychiatric exam: Present: normal affect, normal mood Skin exam: Present: warm, dry, intact, normal color. Absent: rash Course Vital Signs 09/11/23 09/11/23 10:15 13:02 Temperature 98.6 F 98.1 F Pulse Rate 81 69 Respiratory 18 18 Rate Blood Pressure 118/69 138/64 O2 Sat by Pulse 94 L 95 Oximetry Medical Decision Making - Medical Decision Making This is an 83-year-old female who presents to the emergency department for left arm pain. Was pt. sent in by a medical professional or institution? @ -No Did you speak to anyone other than the patient for history? @ -No Did you review nursing and triage notes? @ -Yes, and I agree, it is accurate with regards to the patient's symptoms. Were old charts reviewed? @ -No Differential Diagnosis? @ -Differential Musculoskeletal: Muscular strain, contusion, ligament sprain, fracture, arthritis, septic arthritis, bursitis, cellulitis, muscle spasm, nerve compression, DVT, arterial occlusion, herpes zoster, electrolyte abnormality, tumor.... This is not meant to be in all inclusive list EKG interpreted by me (3pts min.)? @ -EKG interpreted by me demonstrating the following: Sinus rhythm. Ventricular rate 61 beats per minute, LA interval 309 ms, QRS duration 131 ms, QTC 444 ms. X-rays interpreted by me (1pt min.)? @ -Chest x-ray obtained, my interpretation identifies no localized consolidations or infiltrates. X-ray of the left shoulder and cervical spine o btained. My interpretation identifies no acute fractures. CT interpreted by me (1pt min.)? @ -Not obtained U/S interpreted by me (1pt. min.)? @ -Not obtained What testing was considered but not performed? (CT, X-rays, U/S, labs)? Why? @ -None What meds were considered but not given? Why? @ -None Did you discuss the management of the patient with other professionals? @ -No Did you reconcile home meds? @ -No Was smoking cessation discussed for >3mins.? @ -No Was critical care preformed (if so, how long)? @ -No Were there social determinants of health that impacted care today? How? (Homelessness, low income, unemployed, alcoholism, drug addiction, transportation, low edu. Level, literacy, decrease access to med. care, group home, rehab)? @ -No Was there de-escalation of care discussed even if they declined? (Discuss DNR or withdrawal of care, Hospice)? @ -No What co-morbidities impacted this encounter? (DM, HTN, Smoking, COPD, CAD, Cancer, CVA, Hep., AIDS, mental health diagnosis, sleep apnea, morbid obesity)? @ -OA, RA Was patient admitted / discharged? @ -Discharged. Lab work obtained and found to be nonactionable, including a negative troponin. Chest x-ray obtained revealing no acute process. X-ray of the left shoulder and cervical spine obtained as well revealing degenerative changes without any acute process. We did review her old EKG, and no acute changes were evident. Her pain was entirely reproducible with movement and on palpation, and a cardiac process is unlikely. Her symptoms were well controlled in the emergency department, and at that point the patient felt stable for discharge home. Advised that this may be musculoskeletal in nature or related to a cervical radiculopathy. Rx for prednisone and Robaxin provided with dosing instructions reviewed. She was also given information for follow-up with orth opedics. Patient discharged home in stable condition. Undiagnosed new problem with uncertain prognosis? @ -None Drug Therapy requiring intensive monitoring for toxicity (Heparin, Nitro, Insulin, Cardizem)? @ -None Were any procedures done? @ -None Diagnosis/symptom? @ -Cervical radiculopathy, left arm pain Acute, or Chronic, or Acute on Chronic? @ -Acute Uncomplicated (without systemic symptoms) or Complicated (systemic symptoms)? @ -Uncomplicated Side effects of treatment? @ -None Exacerbation, Progression, or Severe Exacerbation] @ -Not applicable Poses a threat to life or bodily function? @ -Unlikely Return precautions reviewed in depth, the patient is instructed to return to the emergency department with any new, worsening, or concerning symptoms. Patient verbalized understanding. This case was discussed in detail with the attending ED physician, Dr. Coelho. Presentation, findings, and treatment plan discussed in detail as well. - Lab Data Result diagrams: 09/11/23 10:58 09/11/23 10:58 Lab Results 09/11/23 09/11/23 09/11/23 Range/Units 10:58 10:58 10:58 WBC 6.9 (3.8-10.6) k/uL RBC 4.22 (3.80-5.40) m/uL Hgb 13.7 (11.4-16.0) gm/dL Hct 41.6 (34.0-46.0) % MCV 98.5 (80.0-100.0) fL MCH 32.5 (25.0-35.0) pg MCHC 33.0 (31.0-37.0) g/dL RDW 13.3 (11.5-15.5) % Plt Count 194 (150-450) k/uL MPV 7.7 Neutrophils % 68 % Lymphocytes % 19 % Monocytes % 9 % Eosinophils % 0 % Basophils % 0 % Neutrophils # 4.7 (1.3-7.7) k/uL Lymphocytes # 1.3 (1.0-4.8) k/uL Monocytes # 0.6 (0-1.0) k/uL Eosinophils # 0.0 (0-0.7) k/uL Basophils # 0.0 (0-0.2) k/uL Sodium 140 (137-145) mmol/L Potassium 4.2 (3.5-5.1) mmol/L Chloride 107 (98-107) mmol/L Carbon Dioxide 22 (22-30) mmol/L Anion Gap 11 mmol/L BUN 24 H (7-17) mg/dL Creatinine 0.81 (0.52-1.04) mg/dL Est GFR (CKD-EPI)AfAm 79 (>60 ml/min/1.73 sqM) Est GFR (CKD-EPI)NonAf 68 (>60 ml/min/1.73 sqM) Glucose 107 H (74-99) mg/dL Calcium 8.6 (8.4-10.2) mg/dL Magnesium 2.2 (1.6-2.3) mg/dL Total Bilirubin 0.7 (0.2-1.3) mg/dL AST 21 (14-36) U/L ALT 40 H (4-34) U/L Alkaline Phosphatase 88 (38-126) U/L Troponin I <0.012 (0.000-0.034) ng/mL Total Protein 6.8 (6.3-8.2) g/dL Albumin 3.6 (3.5-5.0) g/dL - Radiology Data Radiology results: report reviewed, image reviewed Disposition Clinical Impression: Cervical radiculopathy, Left arm pain Disposition: HOME SELF-CARE Instructions (If sedation given, give patient instructions): Cervical Radiculopathy (ED) Additional Instructions: Return to the emergency department with any new, worsening, or concerning symptoms. Take the prednisone daily for 5 days. You may take this with Tylenol for additional symptomatic control. Take the Robaxin as 1-2 tablets up to 3-4 times daily. Be aware that this may make you drowsy. Contact orthopedics as listed below for a follow-up appointment. Follow up with your primary care provider in 1-2 days. Prescriptions: predniSONE 50 mg PO DAILY 5 Days #5 tab methocarbamoL [Robaxin-750] 1,500 mg PO TID PRN #30 tab PRN Reason: Pain Is patient prescribed a controlled substance at d/c from ED?: No Referrals: Jh Garcia DO [Primary Care Provider] - 1-2 days Gurdeep Flaherty DO [Doctor of Osteopathic Medicine] - 1-2 days
[2023-09-11 11:12] LABS: Basophils % (A) 0 %; Eosinophils % (A) 0 %; HCT 41.6 % (34.0-46.0); HGB 13.7 gm/dL (11.4-16.0); Lymphocytes # (A) 1.3 k/uL (1.0-4.8); Lymphocytes % (A) 19 %; MCH 32.5 pg (25.0-35.0); MCV 98.5 fL (80.0-100.0); Mean Platelet Volume 7.7; Monocytes # (A) 0.6 k/uL (0-1.0); Monocytes % (A) 9 %; Neutrophils # (A) 4.7 k/uL (1.3-7.7); Neutrophils % (A) 68 %; Platelet Count 194 k/uL (150-450); RBC 4.22 m/uL (3.80-5.40); RDW 13.3 % (11.5-15.5); WBC 6.9 k/uL (3.8-10.6)
--- NOTE | 2023-09-11 11:32 | XR ---
EXAMINATION TYPE: XR cervical spine comp DATE OF EXAM: 09/11/2023 11:26 AM CLINICAL INDICATION:Female, 83 years old with history of Pain; [facility] COMPARISON: None TECHNIQUE: The cervical spine was imaged in frontal, lateral, odontoid and bilateral oblique. FINDINGS: The osseous structures show normal alignment without evidence of an acute fracture. There are osteoph ytes noted throughout the cervical spine on the anterior and lateral aspects of the vertebral bodies. The intervertebral disk spaces are narrowed at multiple levels. Pedicles are intact. Soft tissues a re within normal limits. The odontoid appears intact. Degeneration changes worse at C4-C5 and C5-C6. Mild multilevel neural foraminal stenosis. IMPRESSION: 1. No fracture or dislocation. 2. Mild degenerative disc disease changes of the cervical spine.
--- NOTE | 2023-09-11 11:33 | XR ---
EXAMINATION TYPE: XR chest 2V DATE OF EXAM: 09/11/2023 11:27 AM CLINICAL INDICATION:Female, 83 years old with history of Pain; [facility] COMPARISON: Chest radiographs from 02/07/2023. TECHNIQUE: XR chest 2V Frontal and lateral views of the chest. FINDINGS: Lungs/Pleura: There is flattening of the diaphragm with increased lucency of the lungs. No evidence o f pneumothorax, pleural effusion or focal consolidation. Pulmonary vascularity: Unremarkable. Heart/mediastinum: Cardiomediastinal silhouette is unremarkable. Musculoskeletal: Degenerative changes of the shoulder joints. IMPRESSION: 1. No acute cardiopulmonary disease process. 2. COPD changes.
--- NOTE | 2023-09-11 11:33 | XR ---
EXAMINATION TYPE: XR shoulder complete LT DATE OF EXAM: 09/11/2023 11:26 AM CLINICAL INDICATION:Female, 83 years old with history of Pain; COMPARISON: 11/19/2020 TECHNIQUE: XR shoulder complete LT; shoulder was examined in AP, internally rotated and scapular Y p rojections. FINDINGS: No evidence of acute osseous pathology, joint dislocation, or soft tissue swelling. The remaining po rtions of the visualized chest are unremarkable. Degeneration changes with osteophyte formation clavi elisabeth and acromion. IMPRESSION: 1. No acute osseous pathology. 2. Mild left shoulder osteoarthrosis.
[2023-09-11 11:40] LABS: ALT 40 U/L (4-34); AST 21 U/L (14-36); African American GFR (CKD) 79 (>60 ml/min/1.73 sqM); Albumin 3.6 g/dL (3.5-5.0); Alkaline Phosphatase 88 U/L (38-126); Anion Gap 11 mmol/L; Blood Urea Nitrogen 24 mg/dL (7-17); Calcium 8.6 mg/dL (8.4-10.2); Carbon Dioxide 22 mmol/L (22-30); Chloride 107 mmol/L (98-107); Glucose 107 mg/dL (74-99); Magnesium 2.2 mg/dL (1.6-2.3); Non-African American GFR(CKD) 68 (>60 ml/min/1.73 sqM); Potassium 4.2 mmol/L (3.5-5.1); Sodium 140 mmol/L (137-145); Total Bilirubin 0.7 mg/dL (0.2-1.3); Total Protein 6.8 g/dL (6.3-8.2)
[2023-09-11] MEDS ORDERED: ACET/COD 300 MG/30 MG STARTER PACK 6 TAB BTL PO STA (12:50)
[2023-09-11 13:08] VITALS: BP 138/64; PULSE 69; TEMP 98.1
== END 2023-09-11 13:03 | disposition home or self-care (01) ==
LOC: EC 09:50
DX: M79.602 Pain in left arm (principal); M54.12 Radiculopathy, cervical region; J44.9 Chronic obstructive pulmonary disease, unspecified; E78.5 Hyperlipidemia, unspecified; M19.90 Unspecified osteoarthritis, unspecified site; Z79.899 Other long term (current) drug therapy; Z88.8 Allergy status to other drugs, medicaments and biological substances; Z88.6 Allergy status to analgesic agent; Z88.1 Allergy status to other antibiotic agents
CPT/HCPCS: 36415; 93005; 80053; 83735; 84484; 85025; 72050; 73030; 71046; 99285; 96374; 96375 ×2; 96361; J1100; J2360; J2270

== ENCOUNTER 2024-02-11 07:25 | Inpatient (IN) | payer MEDICARE ==
[2024-02-11 08:26] LABS: Basophils % (A) 0 %; Eosinophils # (A) 0.1 k/uL (0-0.7); Eosinophils % (A) 1 %; HGB 12.9 gm/dL (11.4-16.0); Lymphocytes # (A) 1.5 k/uL (1.0-4.8); Lymphocytes % (A) 15 %; MCH 31.7 pg (25.0-35.0); MCHC 31.4 g/dL (31.0-37.0); MCV 100.8 fL (80.0-100.0); Mean Platelet Volume 7.9; Monocytes # (A) 0.5 k/uL (0-1.0); Monocytes % (A) 5 %; Neutrophils # (A) 7.5 k/uL (1.3-7.7); Neutrophils % (A) 78 %; Platelet Count 165 k/uL (150-450); RBC 4.06 m/uL (3.80-5.40); RDW 12.4 % (11.5-15.5); WBC 9.6 k/uL (3.8-10.6)
[2024-02-11] MEDS: ONDANSETRON 4 MG/2 ML VIAL IVP STA (08:27)
[2024-02-11] MEDS: MORPHINE SULFATE 2 MG/ML SYRINGE IVP ONE (08:27)
[2024-02-11] MEDS: methylPREDNISolone SOD SUCCI 125 MG/2 ML VIAL IV STA (08:28)
[2024-02-11] MEDS: SODIUM CHLORIDE 0.9% 500 ML 500 ML IV STA (08:28)
[2024-02-11 08:40] LABS: ALT 76 U/L (4-34); AST 215 U/L (14-36); African American GFR (CKD) 76 (>60 ml/min/1.73 sqM); Albumin 3.6 g/dL (3.5-5.0); Alkaline Phosphatase 72 U/L (38-126); Anion Gap 2 mmol/L; Blood Urea Nitrogen 22 mg/dL (7-17); Calcium 8.8 mg/dL (8.4-10.2); Carbon Dioxide 28 mmol/L (22-30); Chloride 107 mmol/L (98-107); Glucose 107 mg/dL (74-99); Non-African American GFR(CKD) 66 (>60 ml/min/1.73 sqM); Potassium 4.1 mmol/L (3.5-5.1); Sodium 137 mmol/L (137-145); Total Bilirubin 1.5 mg/dL (0.2-1.3); Total Protein 6.3 g/dL (6.3-8.2); Uric Acid 4.4 mg/dL (3.7-7.4)
[2024-02-11 08:51] LABS: C Reactive Protein <0.5 mg/dL (<1.0)
[2024-02-11] MEDS: COLCHICINE 0.6 MG EACH PO STA (09:02)
[2024-02-11] MEDS: MORPHINE SULFATE 4 MG/ML SYRINGE IVP STA (09:03)
[2024-02-11 09:06] LABS: Partial Thromboplastin Time 21.8 sec (22.0-30.0)
[2024-02-11] MEDS ORDERED: NALOXONE 0.4 MG/ML 1 ML VIAL IV PRN (10:12)
--- NOTE | 2024-02-11 10:12 | ED ---
General Adult HPI - General Chief complaint: Fall Stated complaint: Weakness Time Seen by Provider: 02/11/24 07:32 Source: patient, family, EMS, RN notes reviewed Mode of arrival: EMS Limitations: physical limitation - History of Present Illness Initial comments: 83-year-old female presents emergency department with via EMS for syncopal episode, right hand pain. Patient has been complaining of right hand pain for several days she has had issues in the past associated with gout. She states it feels the same. Patient reportedly became very weak and passed out per on top of him. Patient states she is unaware of this episode. Patient states she always has weakness this was a different episode. She denies any current chest pain no head injury no loss conscious. - Related Data Home Medications Medication Instructions Recorded Confirmed Atorvastatin Calcium [Lipitor] 40 mg PO HS 10/12/19 04/19/23 Baclofen [Lioresal] 10 mg PO BID 04/23/20 04/19/23 Dicyclomine [Bentyl] 10 mg PO QID 04/23/20 04/19/23 Nitrofurantoin Monohyd/M-Cryst 100 mg PO DAILY 02/07/23 04/19/23 [Macrobid] Primidone [Mysoline] 25 mg PO BID 02/07/23 04/19/23 Venlafaxine HCl ER [Effexor XR] 75 mg PO DAILY 02/07/23 04/19/23 amLODIPine [Norvasc] 5 mg PO DAILY 02/07/23 04/19/23 rOPINIRole HCL [Requip] 1 mg PO TID 04/12/23 04/19/23 Previous Rx's Medication Instructions Recorded Sucralfate [Carafate] 1 gm PO BID #60 tablet 04/19/23 Indomethacin [Indocin] 50 mg PO TID PRN #20 capsule 09/01/23 Sulfamethox-Tmp 800-160Mg [Bactrim 1 each PO Q12HR #14 tab 09/01/23 DS 800-160 mg] methocarbamoL [Robaxin-750] 1,500 mg PO TID PRN #30 tab 09/11/23 predniSONE 50 mg PO DAILY 5 Days #5 tab 09/11/23 Allergies Allergy/AdvReac Type Severity Reaction Status Date / Time cephalexin [From Keflex] Allergy Unknown Verified 09/11/23 10:18 etodolac [From Lodine] Allergy Rash/Hives Verified 09/11/23 10:18 nabumetone [From Relafen] Allergy Rash/Hives Verified 09/11/23 10:18 naproxen [From Naprosyn] Allergy Rash/Hives Verified 09/11/23 10:18 NSAIDS (Non-Steroidal Allergy Rash/Hives Verified 09/11/23 10:18 Anti-Inflamma Review of Systems ROS Statement: Those systems with pertinent positive or pertinent negative responses have been documented in the HPI. ROS Other: All systems not noted in ROS Statement are negative. Past Medical History Past Medical History: Cancer, CVA/TIA, GERD/Reflux, Hyperlipidemia, Osteoarthritis (OA), Pneumonia, Renal Disease, Rheumatoid Arthritis (RA) Additional Past Medical History / Comment(s): pancreatitis, U/s and biopsy of pancreas at [facility], anemia, kidney stones/UTIs, skin cancer, migraines, RLS, generalized pain d/t RA/OA, constipation, past ileus, IBS History of Any Multi-Drug Resistant Organisms: None Reported Past Surgical History: Breast Surgery, Cholecystectomy, Hernia Repair, Joint Replacement, Orthopedic Surgery Additional Past Surgical History / Comment(s): Rotator cuff (R); Ric Knee Replacement; Panniculectomy, lizzie fundoplication/repair paraesophageal hernia, bilateral legs varicose vein surgery, colonoscopies-normal, bilateral cataract removal, FNA abdominal seroma, cystoscopy/bladder bx/lithotripsy with R ureteral stent, skin cancer removal, bilateral benign breast biopsies, bilateral feet/toe surgeries/4th R toe amp Past Anesthesia/Blood Transfusion Reactions: No Reported Reaction Additional Past Anesthesia/Blood Transfusion Reaction / Comment(s): Pt has received blood after panniculectomy without reaction. Past Psychological History: No Psychological Hx Reported Smoking Status: Never smoker Past Alcohol Use History: None Reported Past Drug Use History: None Reported - Past Family History Mother Family Medical History: Myocardial Infarction (MS) Additional Family Medical History / Comment(s): Mother at age 69 yrs after having the flu and complicated by a MS. Father Additional Family Medical History / Comment(s): IBS. Father at age 78yrs. General Exam General appearance: alert, in no apparent distress Head exam: Present: atraumatic, normocephalic, normal inspection Eye exam: Present: normal appearance, PERRL, EOMI. Absent: scleral icterus, conjunctival injection, periorbital swelling ENT exam: Present: normal exam, mucous membranes moist Neck exam: Present: normal inspection, full ROM. Absent: tenderness, meni ngismus, lymphadenopathy Respiratory exam: Present: normal lung sounds bilaterally. Absent: respiratory distress, wheezes, rales, rhonchi, stridor Cardiovascular Exam: Present: normal rhythm, bradycardia, normal heart sounds. Absent: systolic murmur, diastolic murmur, rubs, gallop, clicks GI/Abdominal exam: Present: soft, normal bowel sounds. Absent: distended, tenderness, guarding, rebound, rigid Extremities exam: Present: other (Right hand there is swelling across MCP region, chronic deformities noted no erythema) Neurological exam: Present: alert, oriented X3 Course Vital Signs 02/11/24 02/11/24 02/11/24 07:26 09:10 09:19 Temperature 97.9 F Pulse Rate 52 L 37 L 44 L Pulse Rate [ Tugboat Captain ] Respiratory 16 16 Rate Blood Pressure 109/65 96/72 112/47 Blood Pressure [Right Arm Sitting] Blood Pressure [Right Arm Standing] Blood Pressure [Right Arm Supine] O2 Sat by Pulse 98 97 96 Oximetry 02/11/24 02/11/24 02/11/24 09:28 09:30 10:04 Temperature Pulse Rate Pulse Rate [ 51 L 52 L 54 L Tugboat Captain ] Respiratory Rate Blood Pressure Blood Pressure 99/42 [Right Arm Sitting] Blood Pressure 94/48 [Right Arm Standing] Blood Pressure 91/37 [Right Arm Supine] O2 Sat by Pulse Oximetry 02/11/24 10:36 Temperature Pulse Rate 54 L Pulse Rate [ Tugboat Captain ] Respiratory 16 Rate Blood Pressure 113/49 Blood Pressure [Right Arm Sitting] Blood Pressure [Right Arm Standing] Blood Pressure [Right Arm Supine] O2 Sat by Pulse 97 Oximetry EKG Findings - EKG Comments: EKG Findings:: EKG performed at 7: 31 sinus bradycardia rate of 49 OH 331 QRS 151 QT/QTc 472/443 - EKG Results: EKG: interpreted by MELIDA Medical Decision Making - Medical Decision Making Was pt. sent in by a medical professional or institution (, PA, JOURNEYMAN MECHANIC, urgent care, hospital, or usp...) When possible be specific @ -No Did you speak to anyone other than the patient for history (EMS, parent, family, police, friend...)? What history was obtained from this source @ -No Did you review nursing and triage notes (agree or disagree)? Why? @ -I reviewed and agree with nursing and triage notes Were old charts reviewed (outside hosp., previous admission, EMS record, old EKG, old radiological studies, urgent care reports/EKG's, usp records)? Report findings @ -No old charts were reviewed Differential Diagnosis (chest pain, altered mental status, abdominal pain women, abdominal pain men, vaginal bleeding, weakness, fever, dyspnea, syncope, headac he, dizziness, GI bleed, back pain, seizure, CVA, palpatations, mental health, musculoskeletal)? @ -Differential Syncope: Valvular disease, hypertrophic cardiomyopathy, pulmonary embolism, tamponade, tachycardia, bradycardia, MS, hypovolemia, hemorrhage, dissection, anemia, intracranial hemorrhage, seizure, hypoglycemia, carbon monoxide poisoning, this is not meant to be an all-inclusive list. EKG interpreted by me (3pts min.). @ -As above X-rays interpreted by me (1pt min.). @ -None done CT interpreted by me (1pt min.). @ -None done U/S interpreted by me (1pt. min.). @ -None done What testing was considered but not performed or refused? (CT, X-rays, U/S, labs)? Why? @ -None What meds were considered but not given or refused? Why? @ -None Did you discuss the management of the patient with other professionals (professionals i.e. , PA, JOURNEYMAN MECHANIC, lab, RT, psych nurse, social organization professor, photographer's assistant, teacher, chief informatics officer, counseling case manager)? Give summary @ -Dr. Garcia for admission regarding syncopal episode and bradycardia Was smoking cessation discussed for >3mins.? @ -No Was critical care preformed (if so, how long)? @ -No Were there social determinants of health that impacted care today? How? ( Homelessness, low income, unemployed, alcoholism, drug addiction, transportation, low edu. Level, literacy, decrease access to med. care, [place] [facility], rehab)? @ -No Was there de-escalation of care discussed even if they declined (Discuss DNR or withdrawal of care, Hospice)? DNR status @ -No What co-morbidities impacted this encounter? (DM, HTN, Smoking, COPD, CAD, Cancer, CVA, ARF, Chemo, Hep., AIDS, mental health diagnosis, sleep apnea, morbid obesity)? @ -None Was patient admitted / discharged? Hospital course, mention meds given and route, prescriptions, significant lab abnormalities, going to OR and other pertinent info. @ -Admitted patient is found to have significant bradycardia as well as 30s and prior syncopal episode. Patient be admitted for further monitoring, cardiology evaluation Undiagnosed new problem with uncertain prognosis? @ -No Drug Therapy requiring intensive monitoring for toxicity (Heparin, Nitro, Insulin, Cardizem)? @ -No Were any procedures done? @ -No Diagnosis/symptom? @ -Syncope, bradycardia Acute, or Chronic, or Acute on Chronic? @ -Acute Uncomplicated (without systemic symptoms) or Complicated (systemic symptoms)? @ -Complicated Side effects of treatment? @ -No Exacerbation, Progression, or Severe Exacerbation? @ -No Poses a threat to life or bodily function? How? (Chest pain, USA, MS, pneumonia, PE, COPD, DKA, ARF, appy, cholecystitis, CVA, Diverticulitis, Homicidal, Suicidal, threat to staff... and all critical care pts) @ -Yes bradycardia - Lab Data Result diagrams: 02/11/24 07:59 02/11/24 07:59 Lab Results 02/11/24 02/11/24 02/11/24 Range/Units 07:59 07:59 07:59 WBC 9.6 (3.8-10.6) k/uL RBC 4.06 (3.80-5.40) m/uL Hgb 12.9 (11.4-16.0) gm/dL Hct 41.0 (34.0-46.0) % MCV 100.8 H (80.0-100.0) fL MCH 31.7 (25.0-35.0) pg MCHC 31.4 (31.0-37.0) g/dL RDW 12.4 (11.5-15.5) % Plt Count 165 (150-450) k/uL MPV 7.9 Neutrophils % 78 % Lymphocytes % 15 % Monocytes % 5 % Eosinophils % 1 % Basophils % 0 % Neutrophils # 7.5 (1.3-7.7) k/uL Lymphocytes # 1.5 (1.0-4.8) k/uL Monocytes # 0.5 (0-1.0) k/uL Eosinophils # 0.1 (0-0.7) k/uL Basophils # 0.0 (0-0.2) k/uL PT 11.0 (10.0-12.5) sec INR 1.0 (<1.2) APTT 21.8 L (22.0-30.0) sec Sodium 137 (137-145) mmol/L Potassium 4.1 (3.5-5.1) mmol/L Chloride 107 (98-107) mmol/L Carbon Dioxide 28 (22-30) mmol/L Anion Gap 2 mmol/L BUN 22 H (7-17) mg/dL Creatinine 0.83 (0.52-1.04) mg/dL Est GFR (CKD-EPI)AfAm 76 (>60 ml/min/1.73 sqM) Est GFR (CKD-EPI)NonAf 66 (>60 ml/min/1.73 sqM) Glucose 107 H (74-99) mg/dL Uric Acid 4.4 (3.7-7.4) mg/dL Calcium 8.8 (8.4-10.2) mg/dL Magnesium 2.0 (1.6-2.3) mg/dL Total Bilirubin 1.5 H (0.2-1.3) mg/dL AST 215 H (14-36) U/L ALT 76 H (4-34) U/L Alkaline Phosphatase 72 (38-126) U/L Troponin I (0.000-0.034) ng/mL C-Reactive Protein <0.5 (<1.0) mg/dL Total Protein 6.3 (6.3-8.2) g/dL Albumin 3.6 (3.5-5.0) g/dL 02/11/24 Range/Units 07:59 WBC (3.8-10.6) k/uL RBC (3.80-5.40) m/uL Hgb (11.4-16.0) gm/dL Hct (34.0-46.0) % MCV (80.0-100.0) fL MCH (25.0-35.0) pg MCHC (31.0-37.0) g/dL RDW (11.5-15.5) % Plt Count (150-450) k/uL MPV Neutrophils % % Lymphocytes % % Monocytes % % Eosinophils % % Basophils % % Neutrophils # (1.3-7.7) k/uL Lymphocytes # (1.0-4.8) k/uL Monocytes # (0-1.0) k/uL Eosinophils # (0-0.7) k/uL Basophils # (0-0.2) k/uL PT (10.0-12.5) sec INR (<1.2) APTT (22.0-30.0) sec Sodium (137-145) mmol/L Potassium (3.5-5.1) mmol/L Chloride (98-107) mmol/L Carbon Dioxide (22-30) mmol/L Anion Gap mmol/L BUN (7-17) mg/dL Creatinine (0.52-1.04) mg/dL Est GFR (CKD-EPI)AfAm (>60 ml/min/1.73 sqM) Est GFR (CKD-EPI)NonAf (>60 ml/min/1.73 sqM) Glucose (74-99) mg/dL Uric Acid (3.7-7.4) mg/dL Calcium (8.4-10.2) mg/dL Magnesium (1.6-2.3) mg/dL Total Bilirubin (0.2-1.3) mg/dL AST (14-36) U/L ALT (4-34) U/L Alkaline Phosphatase (38-126) U/L Troponin I <0.012 (0.000-0.034) ng/mL C-Reactive Protein (<1.0) mg/dL Total Protein (6.3-8.2) g/dL Albumin (3.5-5.0) g/dL Disposition Clinical Impression: Syncope, Bradycardia, Right hand pain Disposition: ADMITTED IP TO THIS HOSP Condition: Fair Time of Disposition: 10:12
[2024-02-11] MEDS: SODIUM CHLORIDE 0.9% 1,000 ML IV SCH (10:46)
[2024-02-12] MEDS: HYDROcodone/APAP 5-325MG 1 EACH TAB PO PRN (08:10)
[2024-02-12] MEDS ORDERED: DICYCLOMINE 10 MG CAP PO PRN (09:13)
--- NOTE | 2024-02-12 10:03 | P.CRDCN ---
History of Present Illness Consult date: 02/12/24 Reason for Consult (text): Syncope, bradycardia History of present illness: History of present illness: This is an 83-year-old female patient of Dr. Shahab Soto with past medical history of dyslipidemia, mitral and aortic regurgitation, hypertension. We have been asked to evaluate the patient for syncope and bradycardia. Patient is interviewed today in the emergency center. Initially she did not remember why she is in the hospital. She states she came into the hospital due to gout in her right hand. Patient denies having any fall or loss of consciousness, no lightheadedness or dizziness. She denies having any chest pain. According to the ER records, patient was brought into the hospital for syncopal episode, weakness. Patient presented with heart rate as low as 37, blood pressure initially soft. Propranolol was placed on hold EKG sinus bradycardia at 49 with trifascicular block CBC unremarkable. INR 1. Electrolytes normal. BUN 22 creatinine 0.83. Magnesium 2. Total bilirubin 1.5, AST 215, ALT 76. Troponin negative x 1. C- reactive protein 0.5. Home cardiac medications: Amlodipine 5 mg daily, propranolol 10 mg twice daily. Echocardiogram performed in the office on 04/17/2023 revealed EF 60 to 65%. Mild to moderate aortic regurgitation, mild mitral regurgitation, mild tricuspid regurgitation, normal pulmonary artery systolic pressure. Review Of Systems: At the time of my exam: CONSTITUTIONAL: Denies fever or chills. HEENT: Denies blurred vision, vision changes, or eye pain. Denies hemoptysis CARDIOVASCULAR: Denies chest pain. Denies orthopnea. Denies PND. Denies palpitations RESPIRATORY: Denies shortness of breath. GASTROINTESTINAL: Denies abdominal pain. Denies nausea or vomiting. HEMATOLOGIC: Denies bleeding disorders. GENITOURINARY: Denies any blood in urine. SKIN: Denies pruitis. Denies rash. Physical examination: Gen: This is an 83-year-old female in no acute distress VS: reviewed, blood pressure 170/72, heart rate 71, pulse ox 95% on room air. HEENT: Head is atraumatic, normocephalic. Pupils equal, round. Sclerae is anicteric. NECK: Supple. No JVD. LUNGS: Clear to auscultation. No wheezes or rhonchi. No intercostal retractions. HEART: Regular rate and rhythm. Systolic murmur concerning for ABDOMEN: Soft No tenderness. EXTREMITIES: No pedal edema. No calf tenderness. NEUROLOGICAL: Patient is awake, alert. Assessment: Bradycardia with trifascicular block Possible syncope but patient denies Rule out acute coronary syndrome and thyroid disease Elevated liver function test Hypertension Dyslipidemia Mitral and aortic regurgitation Plan: Resume patient's home cardiac medications Continue to hold propranolol and avoid any AV rogelio blocking agents Continue telemetry monitoring Obtain TSH Obtain 2-D echocardiogram and Doppler study to assess cardiac structure and func tion Further recommendations to follow based upon clinical course Thank you kindly for this consultation. Nurse practitioner note has been reviewed, I agree with documented findings and plan of care. Patient was seen and examined. Past Medical History Past Medical History: Cancer, CVA/TIA, GERD/Reflux, Hyperlipidemia, Osteoarthritis (OA), Pneumonia, Renal Disease, Rheumatoid Arthritis (RA) Additional Past Medical History / Comment(s): pancreatitis, U/s and biopsy of pancreas at [facility], anemia, kidney stones/UTIs, skin cancer, migraines, RLS, generalized pain d/t RA/OA, constipation, past ileus, IBS History of Any Multi-Drug Resistant Organisms: None Reported Past Surgical History: Breast Surgery, Cholecystectomy, Hernia Repair, Joint Replacement, Orthopedic Surgery Additional Past Surgical History / Comment(s): Rotator cuff (R); Ric Knee Replacement; Panniculectomy, lizzie fundoplication/repair paraesophageal hernia, bilateral legs varicose vein surgery, colonoscopies-normal, bilateral cataract removal, FNA abdominal seroma, cystoscopy/bladder bx/lithotripsy with R ureteral stent, skin cancer removal, bilateral benign breast biopsies, bilateral feet/toe surgeries/4th R toe amp Past Anesthesia/Blood Transfusion Reactions: No Reported Reaction Additional Past Anesthesia/Blood Transfusion Reaction / Comment(s): Pt has received blood after panniculectomy without reaction. Past Psychological History: No Psychological Hx Reported Smoking Status: Never smoker Past Alcohol Use History: None Reported Past Drug Use History: None Reported - Past Family History Mother Family Medical History: Myocardial Infarction (VT) Additional Family Medical History / Comment(s): Mother at age 69 yrs after having the flu and complicated by a VT. Father Additional Family Medical History / Comment(s): IBS. Father at age 78yrs. Medications and Allergies Home Medications Medication Instructions Recorded Confirmed Type Baclofen [Lioresal] 10 mg PO BID PRN 04/23/20 02/11/24 History Dicyclomine [Bentyl] 10 mg PO QID PRN 04/23/20 02/11/24 History Venlafaxine HCl ER [Effexor XR] 75 mg PO DAILY 02/07/23 02/11/24 History amLODIPine [Norvasc] 5 mg PO DAILY 02/07/23 02/11/24 History rOPINIRole HCL [Requip] 1 mg PO QID PRN 04/12/23 02/11/24 History Donepezil HCl [Aricept] 10 mg PO HS 02/11/24 02/11/24 History Omeprazole [PriLOSEC] 20 mg PO HS 02/11/24 02/11/24 History Propranolol [Inderal] 10 mg PO BID 02/11/24 02/11/24 History Rizatriptan Benzoate [Rizatriptan] 10 mg PO DAILY PRN 02/11/24 02/11/24 History rOPINIRole HCL [rOPINIRole HCL ER 6 mg PO HS 02/11/24 02/11/24 History (XL)] Allergies Allergy/AdvReac Type Severity Reaction Status Date / Time cephalexin [From Keflex] Allergy Unknown Verified 02/11/24 12:20 etodolac [From Lodine] Allergy Rash/Hives Verified 02/11/24 12:20 nabumetone [From Relafen] Allergy Rash/Hives Verified 02/11/24 12:20 naproxen [From Naprosyn] Allergy Rash/Hives Verified 02/11/24 12:20 NSAIDS (Non-Steroidal Allergy Rash/Hives Verified 02/11/24 12:20 Anti-Inflamma Physical Exam Vitals: Vital Signs Temp Pulse Pulse Resp BP BP BP 02/12/24 08:14 98.4 F 71 17 170/72 02/12/24 02:00 64 16 135/64 02/12/24 00:00 65 16 138/60 02/11/24 22:00 62 18 118/66 02/11/24 20:00 72 16 95/57 02/11/24 18:00 60 18 148/68 02/11/24 17:00 53 L 16 127/58 02/11/24 15:44 54 L 18 125/57 02/11/24 10:36 54 L 16 113/49 02/11/24 10:04 54 L 94/48 02/11/24 09:30 52 L 99/42 02/11/24 09:28 51 L 02/11/24 09:19 44 L 16 112/47 02/11/24 09:10 37 L 96/72 BP Pulse Ox 02/12/24 08:14 95 02/12/24 02:00 97 02/12/24 00:00 97 02/11/24 22:00 97 02/11/24 20:00 97 02/11/24 18:00 99 02/11/24 17:00 99 02/11/24 15:44 98 02/11/24 10:36 97 02/11/24 10:04 02/11/24 09:30 02/11/24 09:28 91/37 02/11/24 09:19 96 02/11/24 09:10 97 Results 02/11/24 07:59 02/11/24 07:59 Coagulation 02/11/24 Range/Units 07:59 PT 11.0 (10.0-12.5) sec APTT 21.8 L (22.0-30.0) sec Current Medications Generic Name Dose Route Start Last Admin Trade Name Freq PRN Reason Stop Dose Admin Hydrocodone Bitart/Acetaminophen 1 each 02/11/24 10:12 02/12/24 08:10 Hydrocodone/Apap 5-325mg 1 Each Tab PO 1 each Q4HR PRN Administration Moderate Pain (Scale 4 to 6) Sodium Chloride 1,000 mls @ 75 mls/hr 02/11/24 10:15 02/11/24 22:45 Saline 0.9% IV 75 mls/hr .[id number] MARIAA Administration Naloxone HCl 0.2 mg 02/11/24 10:12 Naloxone 0.4 Mg/Ml 1 Ml Vial IV Q2M PRN Opioid Reversal Ropinirole HCl 1 mg 02/11/24 23:00 02/12/24 08:10 Ropinirole Hcl 1 Mg Tab PO 1 mg QID MARIAA Administration 02/11/24 07:59 02/11/24 07:59
[2024-02-12] MEDS: SUMAtriptan succinate 50 MG TAB PO PRN (11:18)
--- NOTE | 2024-02-12 17:12 | P.HPIM ---
History of Present Illness H&P Date: 02/12/24 Chief Complaint: Generalized weakness This is an 83-year-old female with past medical history significant for hypertension, dyslipidemia, dementia, osteoarthritis,RA, gastroesophageal reflux disease, history of CVA/TIA, pancreatitis-previously worked up at [facility],constipation and multiple other medical issues brought into the ER via EMS for near syncope, increased generalized weakness, status post fall. reports that patient had been complaining of increased weakness in her bilateral knees, while standing, fell onto her patient, knocking them both over. They both landed on the floor without any head trauma. No syncope. Reports over the last couple years patient has had multiple near syncopal spells. Denies chest pain, palpitations or shortness of breath. Heart rate on admission was 37, propranolol placed on hold. EKG reported sinus bradycardia with first- degree AV block, right bundle branch block-further review per cardiology pen ding. troponin negative x 1. Hematology unremarkable with the exception of MCV 100.8, INR 1, electrolytes within normal limits, BUN 22, creatinine 0.83, glucose 107, total bili 1.5, AST 215, ALT 76, alk phos 72, CRP less than 0.5.Echo from 02/08/2023 reporting normal LV function, aortic sclerosis without significant stenosis. Review of Systems ROS Statement: Those systems with pertinent positive or pertinent negative responses have been documented in the HPI. ROS Other: All systems not noted in ROS Statement are negative. Past Medical History Past Medical History: Cancer, CVA/TIA, GERD/Reflux, Hyperlipidemia, Osteoarthritis (OA), Pneumonia, Renal Disease, Rheumatoid Arthritis (RA) Additional Past Medical History / Comment(s): pancreatitis, U/s and biopsy of pancreas at [facility], anemia, kidney stones/UTIs, skin cancer, migraines, RLS, generalized pain d/t RA/OA, constipation, past ileus, IBS History of Any Multi-Drug Resistant Organisms: None Reported Past Surgical History: Breast Surgery, Cholecystectomy, Hernia Repair, Joint Replacement, Orthopedic Surgery Additional Past Surgical History / Comment(s): Rotator cuff (R); Ric Knee Replacement; Panniculectomy, lizzie fundoplication/repair paraesophageal hernia, bilateral legs varicose vein surgery, colonoscopies-normal, bilateral cataract removal, FNA abdominal seroma, cystoscopy/bladder bx/lithotripsy with R ureteral stent, skin cancer removal, bilateral benign breast biopsies, bilateral feet/toe surgeries/4th R toe amp Past Anesthesia/Blood Transfusion Reactions: No Reported Reaction Additional Past Anesthesia/Blood Transfusion Reaction / Comment(s): Pt has received blood after panniculectomy without reaction. Past Psychological History: No Psychological Hx Reported Smoking Status: Never smoker Past Alcohol Use History: None Reported Past Drug Use History: None Reported - Past Family History Mother Family Medical History: Myocardial Infarction ([place]) Additional Family Medical History / Comment(s): Mother at age 69 yrs after having the flu and complicated by a [place]. Father Additional Family Medical History / Comment(s): IBS. Father at age 78yrs. Medications and Allergies Home Medications Medication Instructions Recorded Confirmed Type Baclofen [Lioresal] 10 mg PO BID PRN 04/23/20 02/11/24 History Dicyclomine [Bentyl] 10 mg PO QID PRN 04/23/20 02/11/24 History Venlafaxine HCl ER [Effexor XR] 75 mg PO DAILY 02/07/23 02/11/24 History amLODIPine [Norvasc] 5 mg PO DAILY 02/07/23 02/11/24 History rOPINIRole HCL [Requip] 1 mg PO QID PRN 04/12/23 02/11/24 History Donepezil HCl [Aricept] 10 mg PO HS 02/11/24 02/11/24 History Omeprazole [PriLOSEC] 20 mg PO HS 02/11/24 02/11/24 History Propranolol [Inderal] 10 mg PO BID 02/11/24 02/11/24 History Rizatriptan Benzoate [Rizatriptan] 10 mg PO DAILY PRN 02/11/24 02/11/24 History rOPINIRole HCL [rOPINIRole HCL ER 6 mg PO HS 02/11/24 02/11/24 History (XL)] Allergies Allergy/AdvReac Type Severity Reaction Status Date / Time cephalexin [From Keflex] Allergy Unknown Verified 02/11/24 12:20 etodolac [From Lodine] Allergy Rash/Hives Verified 02/11/24 12:20 nabumetone [From Relafen] Allergy Rash/Hives Verified 02/11/24 12:20 naproxen [From Naprosyn] Allergy Rash/Hives Verified 02/11/24 12:20 NSAIDS (Non-Steroidal Allergy Rash/Hives Verified 02/11/24 12:20 Anti-Inflamma Physical Exam Vitals: Vital Signs Temp Pulse Resp BP Pulse Ox 02/12/24 08:14 98.4 F 71 17 170/72 95 02/12/24 02:00 64 16 135/64 97 02/12/24 00:00 65 16 138/60 97 02/11/24 22:00 62 18 118/66 97 02/11/24 20:00 72 16 95/57 97 02/11/24 18:00 60 18 148/68 99 02/11/24 17:00 53 L 16 127/58 99 02/11/24 15:44 54 L 18 125/57 98 02/11/24 10:36 54 L 16 113/49 97 PHYSICAL EXAM: VITAL SIGNS: [As above] GENERAL: Pleasant elderly female ,alert and oriented x 2, no acute distress HEENT: Atraumatic, normocephalic ,conjunctivae normal. eyes normal. NECK: Supple, no JVD. CARDIOVASCULAR: S1, S2 regular. Systolic murmur. RESPIRATION: Unlabored, equal air entry, clear to auscultation. ABDOMEN: Soft, nondistended, nontender . No guarding. No rigidity, no masses palpable, positive bowel sounds LEGS: No edema. no swelling NERVOUS SYSTEM: Cranial N 2-12 grossly normal.No focal deficits. Strength and sensation grossly intact. Skin: Warm and dry, no rash. Results CBC & Chem 7: 02/11/24 07:59 02/11/24 07:59 Assessment and Plan Assessment: Bradycardia, EKG reporting trifascicular block per cardiology review. Echo from 02/08/2023 reporting normal LV function, aortic sclerosis without significant stenosis. Near syncope, reoccurrent, reported per Elevated LFTs Hypertension Dyslipidemia Dementia Plan: Continue on current medication regimen ,monitoring and symptomatic treatment. Troponin repeated, orthostatic vital signs ordered. cardiology consult in place, recommendations noted. echo pending. Gentle IV fluid hydration .continue holding propranolol. GI prophylaxis with PPI. PT consulted The impression and plan of care has been dictated as directed. : I performed a history and examination of this patient, discussed the same with the dictator. I agree with the dictator's note ,documented as a scribe. Any additional findings or plans will be noted.
[2024-02-12] MEDS: rOPINIRole HCL 4 MG TABLET PO SCH (21:01)
[2024-02-12] MEDS: DONEPEZIL 10 MG TAB PO SCH (21:01)
[2024-02-12] MEDS: PANTOPRAZOLE 40 MG TABLET PO SCH (21:01)
[2024-02-13] MEDS: amLODIPine 5 MG TAB PO SCH (07:49)
[2024-02-13] MEDS: VENLAFAXINE HCL ER 75 MG CAP PO SCH (09:54)
--- NOTE | 2024-02-13 10:04 | CA ---
Transthoracic Echo Report Name: Monica Carolina Age: 83 Gender: F : 1940 Exam Date: 02/13/2024 08:23 Exam Location: [facility] Ht (in): 67 Wt (lb): 143 Ordering Physician: Lulu Shabazz Attending/Referring Phys: [id number], Mele [employer]erial Installer Amy Garber RDCS Procedure CPT: Indications: LVF Cardiac Hx: Technical Quality: Good Contrast 1: Total Dose (mL): Contrast 2: Total Dose (mL): MEASUREMENTS (Male / Female) Normal Values 2D ECHO LV Diastolic Diameter PLAX 4.9 cm 4.2 - 5.9 / 3.9 - 5.3 cm LV Systolic Diameter PLAX 3.1 cm IVS Diastolic Thickness 0.6 cm 0.6 - 1.0 / 0.6 - 0.9 cm LVPW Diastolic Thickness 1.1 cm 0.6 - 1.0 / 0.6 - 0.9 cm LV Relative Wall Thickness 0.4 RV Internal Dim ED PLAX 3.9 cm LVOT Diameter 2.0 cm LV Diastolic Volume MOD BP 100.9 cm??? 67 - 155 / 56 - 104 cm??? LV Systolic Volume MOD BP 36.4 cm??? 22 - 58 / 19 - 49 cm??? LV Ejection Fraction MOD BP 63.9 % >= 55 % LV Cardiac Index MOD BP 2577.3 cm???/min???m??? LV Diastolic Volume MOD 4C 90.1 cm??? LV Systolic Volume MOD 4C 33.5 cm??? LV Ejection Fraction MOD 4C 62.9 % LV Cardiac Index MOD 4C 2261.0 cm???/min???m??? LV Diastolic Length 4C 9.0 cm LV Systolic Length 4C 7.4 cm LV Diastolic Volume MOD 2C 108.6 cm??? LV Systolic Volume MOD 2C 39.8 cm??? LV Ejection Fraction MOD 2C 63.4 % LV Cardiac Index MOD 2C 2749.4 cm???/min???m??? LV Diastolic Length 2C 8.5 cm LV Systolic Length 2C 7.3 cm LA Volume 47.4 cm??? 18 - 58 / 22 - 52 cm??? LA Volume Index 27.0 cm???/m??? 16 - 28 cm???/m??? Ascending Aorta Diameter 3.4 cm DOPPLER AV Peak Velocity 195.8 cm/s AV Peak Gradient 15.3 mmHg AV Mean Velocity 131.8 cm/s AV Mean Gradient 7.6 mmHg AV Velocity Time Integral 41.4 cm LVOT Peak Velocity 117.8 cm/s LVOT Peak Gradient 5.5 mmHg LVOT Velocity Time Integral 24.4 cm LVOT Stroke Volume 74.0 cm??? LVOT Stroke Volume Index 42.2 ml/m??? LVOT Cardiac Index 2956.4 cm???/min???m??? AV Area Cont Eq vti 1.8 cm??? AV Area Cont Eq pk 1.8 cm??? MV Area PHT 3.5 cm??? Mitral E Point Velocity 67.7 cm/s Mitral A Point Velocity 90.5 cm/s Mitral E to A Ratio 0.7 MV Deceleration Time 215.2 ms TR Peak Velocity 249.1 cm/s TR Peak Gradient 24.8 mmHg Right Atrial Pressure 20.0 mmHg Pulmonary Artery Systolic Pressu 44.8 mmHg Right Ventricular Systolic Press 44.8 mmHg PV Peak Velocity 94.1 cm/s PV Peak Gradient 3.5 mmHg FINDINGS Left Ventricle Left ventricular ejection fraction is estimated at 60-65 %. Mildly increased posterior wall thickness. Left ventricular cavity size normal. No obvious regional wall motion abnormalities. Right Ventricle Mild right ventricular dilatation with normal function. Mildly elevated right ventricular systolic pressure. Right Atrium Mild right atrial dilatation. Left Atrium Normal left atrial size. Mitral Valve Structurally normal mitral valve. No evidence for mitral valve prolapse. No mitral stenosis. Trace mitral regurgitation. Aortic Valve Trileaflet aortic valve. No aortic stenosis. Trace aortic regurgitation. Tricuspid Valve Structurally normal tricuspid valve. No tricuspid stenosis. Mild tricuspid regurgitation. Pulmonic Valve Structurally normal pulmonic valve. No pulmonic stenosis. Trace pulmonic regurgitation. Pericardium No pericardial effusion. Aorta Normal size aortic root and proximal ascending aorta. CONCLUSIONS Normal LV function There is mild dilatation of the right ventricle Mild tricuspid regurg to Previewed by: Dr. Booker Soto MD (Electronically Signed) Final Date: 13 February 2024 10:03
[2024-02-13] MEDS: amLODIPine 5 MG TAB PO STA (12:15)
[2024-02-13] MEDS: hydroCHLOROthiazide 25 MG TAB PO SCH (12:15)
--- NOTE | 2024-02-13 13:14 | P.PN ---
Subjective Progress Note Date: 02/13/24 Reason for Consult (text): Syncope, bradycardia History of present illness: This is an 83-year-old female patient of Dr. Shahab Soto with past medical history of dyslipidemia, mitral and aortic regurgitation, hypertension. We have been asked to evaluate the patient for syncope and bradycardia. Patient is interviewed today in the emergency center. Initially she did not remember why she is in the hospital. She states she came into the hospital due to gout in her right hand. Patient denies having any fall or loss of consciousness, no lightheadedness or dizziness. She denies having any chest pain. According to the ER records, patient was brought into the hospital for syncopal episode, weakness. Patient presented with heart rate as low as 37, blood pressure initially soft. Propranolol was placed on hold EKG sinus bradycardia at 49 with trifascicular block CBC unremarkable. INR 1. Electrolytes normal. BUN 22 creatinine 0.83. Magnesium 2. Total bilirubin 1.5, AST 215, ALT 76. Troponin negative x 1. C- reactive protein 0.5. Home cardiac medications: Amlodipine 5 mg daily, propranolol 10 mg twice daily. Echocardiogram performed in the office on 04/17/2023 revealed EF 60 to 65%. Mild to moderate aortic regurgitation, mild mitral regurgitation, mild tricuspid regurgitation, normal pulmonary artery systolic pressure. 02/12 Patient is seen today in follow-up. Reviewed telemetry and she has not had significant bradycardia. Heart rate has been running in the 60s. Orthostatic vital signs negative. TSH 1.57. Echocardiogram reveals normal LV function. Mild dilatation of the right ventricle. Mild tricuspid regurgitation. Physical examination: Gen: This is an 83-year-old female in no acute distress VS: reviewed HEENT: Head is atraumatic, normocephalic. Pupils equal, round. Sclerae is anicteric. NECK: Supple. No JVD. LUNGS: Clear to auscultation. No wheezes or rhonchi. No intercostal retractions. HEART: Regular rate and rhythm. Systolic murmur concerning for ABDOMEN: Soft No tenderness. EXTREMITIES: No pedal edema. No calf tenderness. NEUROLOGICAL: Patient is awake, alert. Assessment: Bradycardia with trifascicular block Possible syncope but patient denies Rule out acute coronary syndrome and thyroid disease Elevated liver function test Hypertension Dyslipidemia Mitral and aortic regurgitation Plan: Continue patient's home cardiac medications Continue to hold propranolol and avoid any AV rogelio blocking agents Schedule patient for event monitor 30-day prior to discharge Patient is cleared for discharge from cardiology May follow-up with Dr. Shahab Soto in 5 weeks. Nurse practitioner note has been reviewed, I agree with documented findings and plan of care. Patient was seen and examined. Objective - Vital Signs Vital signs: Vital Signs Temp 97.9 F 02/13/24 07:44 Pulse 72 02/13/24 07:44 Resp 19 02/13/24 07:44 BP 188/83 02/13/24 07:44 Pulse Ox 97 02/13/24 07:44 FiO2 Intake & Output 02/12/24 02/13/24 02/13/24 18:59 06:59 18:59 Intake Total 118 118 Balance 118 118 Weight 64.864 kg Intake: Oral 118 118 Other: Voiding Method Toilet Toilet Toilet # Voids 1 2 # Bowel Movements 1 - Labs CBC & Chem 7: 02/11/24 07:59 02/11/24 07:59
[2024-02-13] MEDS: ACETAMINOPHEN TAB 325 MG TAB PO PRN (13:49)
--- NOTE | 2024-02-13 14:15 | XR ---
EXAMINATION TYPE: XR knee limited LT DATE OF EXAM: 02/13/2024 1:44 PM CLINICAL INDICATION:Female, 83 years old with history of Severe pain/fall at home; COMPARISON: 03/10/2019. TECHNIQUE: XR knee limited LT; examined in Frontal, lateral and oblique projections. FINDINGS: Status post total knee arthroplasty changes with hardware in appropriate alignment and in tact. No evidence of fracture. A fabella is present. Soft tissue calcifications anteriorly present. IMPRESSION: Status post total knee arthroplasty changes with hardware intact and appropriate alignment. No fractu res identified.
--- NOTE | 2024-02-13 14:17 | XR ---
EXAMINATION TYPE: XR Hip Limited LT DATE OF EXAM: 02/13/2024 1:44 PM CLINICAL INDICATION:Female, 83 years old with history of Severe pain/fall at home; [facility] COMPARISON: None. TECHNIQUE: XR Hip Limited LT; hip was examined in the frontal and lateral projections FINDINGS/IMPRESSION: Subtle lucency on frog-leg lateral view through the left greater trochanter. Consider further evaluat ion with CT to rule out nondisplaced fracture..
--- NOTE | 2024-02-14 09:19 | P.CNOR ---
History of Present Illness - [facility] Consult date: 02/14/24 Consult reason: joint pain (Left shoulder, left hip.) History of present illness: This is an 83-year-old female admitted through the emergency department after a syncopal episode. The patient states that she had been having severe right wrist and hand pain secondary to her gout. She was also having some left hip and lower leg pain but has been able to ambulate. She believes that when she had her syncopal episode she fell and landed on her left side. She been having severe left shoulder and left hip pain since admission. We are consulted for orthopedic evaluation. Past Medical History Past Medical History: Cancer, CVA/TIA, GERD/Reflux, Hyperlipidemia, Osteoarth ritis (OA), Pneumonia, Rheumatoid Arthritis (RA) Additional Past Medical History / Comment(s): pancreatitis, U/s and biopsy of pancreas at [facility], anemia, kidney stones/UTIs, skin cancer, migraines, RLS, generalized pain d/t RA/OA, constipation, past ileus, IBS History of Any Multi-Drug Resistant Organisms: None Reported Past Surgical History: Breast Surgery, Cholecystectomy, Hernia Repair, Joint Replacement, Orthopedic Surgery Additional Past Surgical History / Comment(s): Rotator cuff (R); Ric Knee Replacement; Panniculectomy, lizzie fundoplication/repair paraesophageal hernia, bilateral legs varicose vein surgery, colonoscopies-normal, bilateral cataract removal, FNA abdominal seroma, cystoscopy/bladder bx/lithotripsy with R ureteral stent, skin cancer removal, bilateral benign breast biopsies, bilateral feet/toe surgeries/4th R toe amp Past Anesthesia/Blood Transfusion Reactions: No Reported Reaction Additional Past Anesthesia/Blood Transfusion Reaction / Comm: Pt has received blood after panniculectomy without reaction. Past Psychological History: No Psychological Hx Reported Additional Psychological History / Comment(s): Pt resides with her spouse. She is normally independent. Smoking Status: Never smoker Past Alcohol Use History: None Reported Past Drug Use History: None Reported - Past Family History Mother History Unknown: Yes Family Medical History: Myocardial Infarction ([place]) Additional Family Medical History / Comment(s): Mother at age 69 yrs after having the flu and complicated by a [place]. Father History Unknown: Yes Additional Family Medical History / Comment(s): IBS. Father at age 78yrs. Medications and Allergies Home Medications Medication Instructions Recorded Confirmed Type Baclofen [Lioresal] 10 mg PO BID PRN 04/23/20 02/11/24 History Dicyclomine [Bentyl] 10 mg PO QID PRN 04/23/20 02/11/24 History Venlafaxine HCl ER [Effexor XR] 75 mg PO DAILY 02/07/23 02/11/24 History rOPINIRole HCL [Requip] 1 mg PO QID PRN 04/12/23 02/11/24 History Donepezil HCl [Aricept] 10 mg PO HS 02/11/24 02/11/24 History Omeprazole [PriLOSEC] 20 mg PO HS 02/11/24 02/11/24 History Rizatriptan Benzoate [Rizatriptan] 10 mg PO DAILY PRN 02/11/24 02/11/24 History rOPINIRole HCL [rOPINIRole HCL ER 6 mg PO HS 02/11/24 02/11/24 History (XL)] amLODIPine [Norvasc] 10 mg PO DAILY #30 tab 02/13/24 Rx hydroCHLOROthiazide [Hydrodiuril] 25 mg PO DAILY #30 tab 02/13/24 Rx Allergies Allergy/AdvReac Type Severity Reaction Status Date / Time cephalexin [From Keflex] Allergy Unknown Verified 02/11/24 12:20 etodolac [From Lodine] Allergy Rash/Hives Verified 02/11/24 12:20 nabumetone [From Relafen] Allergy Rash/Hives Verified 02/11/24 12:20 naproxen [From Naprosyn] Allergy Rash/Hives Verified 02/11/24 12:20 NSAIDS (Non-Steroidal Allergy Rash/Hives Verified 02/11/24 12:20 Anti-Inflamma Physical Examination This is a pleasant 83-year-old female in no acute distress. She is alert and oriented x 3. Exam of the upper extremities reveals no obvious deformity. There is mild swelling noted to the left shoulder. There is no erythema or ecchymosis. She is unable to raise the left arm. She has only about 20 degrees of active forward flexion and abduction. Exam of the lower extremities reveals no obvious deformity. She can lift each leg off the bed independently. There is tenderness to palpation about the left greater trochanter. She has full foot and ankle motion without difficulty or pain. No pain with internal extra rotation of the hip. Neurovascular status to the lower extremity is intact. Results X-rays of the left hip reveal a lucency about the greater trochanter suspicious for nondisplaced fracture. Left knee x-rays reveal total knee components in good position without evidence of loosening. - Labs Labs: H & H 02/11/24 Range/Units 07:59 Hgb 12.9 (11.4-16.0) gm/dL Hct 41.0 (34.0-46.0) % Coagulation 02/11/24 Range/Units 07:59 INR 1.0 (<1.2) Result Diagrams: 02/11/24 07:59 02/11/24 07:59 Assessment and Plan (1) Left hip pain Current Visit: Yes Status: Acute Code(s): M25.552 - PAIN IN LEFT HIP SNOMED Code(s): 00241167 (2) Left shoulder pain Current Visit: Yes Status: Acute Code(s): M25.512 - PAIN IN LEFT SHOULDER SNOMED Code(s): 0235846646 (3) History of acute gouty arthritis Current Visit: Yes Status: Acute Code(s): Z87.39 - PERSONAL HISTORY OF DISEASES OF THE MS SYS AND CONN TISS SNOMED Code(s): 799030856 (4) Right hand pain Current Visit: Yes Status: Acute Code(s): M79.641 - PAIN IN RIGHT HAND SNOMED Code(s): 59653733 (5) Syncope Current Visit: Yes Status: Acute Code(s): R55 - SYNCOPE AND COLLAPSE SNOMED Code(s): 023692629 Plan: The clinical and x-ray findings are discussed with the patient. It is recommended she have CT for further evaluation of the left hip. I have also ordered shoulder x-rays for evaluation of her left shoulder. Is possible that she is having a gouty flare to the left shoulder. She may continue to ambulate with assistance. We will follow-up with x-ray results when available.
[2024-02-14] MEDS: amLODIPine 10 MG TAB PO SCH (10:01)
--- NOTE | 2024-02-14 10:48 | P.PN ---
Subjective Progress Note Date: 02/13/24 H&P Date: 02/12/24 Chief Complaint: Generalized weakness This is an 83-year-old female with past medical history significant for hypertension, dyslipidemia, dementia, osteoarthritis,RA, gastroesophageal reflux disease, history of CVA/TIA, pancreatitis-previously worked up at [facility],constipation and multiple other medical issues brought into the ER via EMS for near syncope, increased generalized weakness, status post fall. reports that patient had been complaining of increased weakness in her bilateral knees, while standing, fell onto her patient, knocking them both over. They both landed on the floor without any head trauma. No syncope. Reports over the last couple years patient has had multiple near syncopal spells. Denies chest pain, palpitations or shortness of breath. Heart rate on admission was 37, propranolol placed on hold. EKG reported sinus bradycardia with first- degree AV block, right bundle branch block-further review per cardiology pending. troponin negative x 1. Hematology unremarkable with the exception of MCV 100.8, INR 1, electrolytes within normal limits, BUN 22, creatinine 0.83, glucose 107, total bili 1.5, AST 215, ALT 76, alk phos 72, CRP less than 0.5.Echo from 02/08/2023 reporting normal LV function, aortic sclerosis without significant stenosis. 02/13/2024 orthostatic vital signs negative. Heart rate 50-100, hypertensive. Norvasc increased. TSH 1.57. Echo reporting normal LV function, mild dilatation of right ventricle, mild tricuspid regurgitation. cleared by cardiology for discharge. Initially had planned for discharge but patient now complaining of left lower extremity -hip, thigh and knee pain. Currently sitting up in bed with knees bent, no bruising noted. X-rays ordered. Denies chest pain, palpitations or shortness of breath. Maintaining O2 sats in the high 90s on room air. Objective - Vital Signs Vital signs: Vital Signs Temp 97.9 F 02/13/24 11:31 Pulse 72 02/13/24 12:50 Resp 19 02/13/24 12:47 BP 156/69 02/13/24 12:50 Pulse Ox 98 02/13/24 12:47 FiO2 Intake & Output 02/12/24 02/13/24 02/13/24 18:59 06:59 18:59 Intake Total 118 538 Balance 118 538 Weight 64.864 kg Intake: Oral 118 538 Other: Voiding Method Toilet Toilet Toilet # Voids 1 2 # Bowel Movements 1 - Exam PHYSICAL EXAM: VITAL SIGNS: [As above] GENERAL: Sitting up in bed, alert and oriented x 3, no acute distress HEENT: Atraumatic, normocephalic ,conjunctivae normal. eyes normal. NECK: Supple, no JVD. CARDIOVASCULAR: S1, S2 regular. Systolic murmur. RESPIRATION: Unlabored, equal air entry, clear to auscultation. ABDOMEN: Soft, nondistended, nontender . No guarding. No rigidity, no masses palpable, positive bowel sounds LEGS: Left thigh tenderness, no edema, positive DP pulse NERVOUS SYSTEM: Cranial N 2-12 grossly normal.No focal deficits. Strength and sensation grossly intact. Skin: Warm and dry, no rash. - Labs CBC & Chem 7: 02/11/24 07:59 02/11/24 07:59 Assessment and Plan Assessment: Bradycardia, EKG reporting trifascicular block per cardiology review. Near syncope, reoccurrent, reported per Left hip and knee pain, x-rays pending Elevated LFTs Hypertension Dyslipidemia Dementia Plan: Continue on current medication regimen ,monitoring and symptomatic treatment. Repeat blood pressure pending.continue holding propranolol ,Norvasc increased, event monitor,cleared for discharge as per cardiology. Discharge placed on hold, x-rays of left lower extremity ordered. The impression and plan of care has been dictated as directed. : I performed a history and examination of this patient, discussed the same with the dictator. I agree with the dictator's note ,documented as a scribe. Any additional findings or plans will be noted.
[2024-02-14 12:08] VITALS: RESP 16; TEMP 98.1
[2024-02-14] MEDS: BACLOFEN 10 MG TAB PO PRN (12:48)
--- NOTE | 2024-02-14 13:20 | CT ---
EXAMINATION TYPE: CT hip LT wo con DATE OF EXAM: 02/14/2024 COMPARISON: None HISTORY: Eval left hip, greater troch fx. CT DLP: 495.2 mGycm Automated exposure control for dose reduction was used. FINDINGS: There is no fracture, dislocation or focal intraosseous abnormality of the left hip and left hemipelv is. There is mild hypertrophic spurring and joint space narrowing indicative of mild osteoarthritis IMPRESSION: 1. NO ACUTE FRACTURE OR DISLOCATION OF THE LEFT HIP OR HEMIPELVIS. 2. MILD OSTEOARTHRITIS OF THE LEFT HIP JOINT
--- NOTE | 2024-02-14 13:31 | XR ---
EXAMINATION TYPE: XR shoulder complete LT DATE OF EXAM: 02/14/2024 1:09 PM CLINICAL INDICATION:Female, 83 years old with history of left shoulder pain, s/p fall; COMPARISON: 09/11/2023. TECHNIQUE: XR shoulder complete LT; examined in AP, internally rotated and scapular Y projections. FINDINGS: No evidence of acute osseous pathology, joint dislocation, or soft tissue swelling. The remaining po rtions of the visualized chest are unremarkable. Mild degeneration changes of the acromion, distal c lavicle with osteophyte formation. There is osteophyte formation of the glenoid and humeral head. The re is joint space narrowing of glenohumeral joint. And sclerosis of the aorta. IMPRESSION: 1. No acute osseous pathology. 2. Mild to moderate shoulder osteoarthrosis.
[2024-02-14 13:43] VITALS: BP 168/68; PULSE 72
[2024-02-14] MEDS ORDERED: Acetaminophen-Codeine 300-30mg TAB PO PRN (14:11)
--- NOTE | 2024-02-14 15:05 | P.PN ---
Subjective Progress Note Date: 02/14/24 Reason for Consult (text): Syncope, bradycardia History of present illness: This is an 83-year-old female patient of Dr. Shahab Soto with past medical history of dyslipidemia, mitral and aortic regurgitation, hypertension. We have been asked to evaluate the patient for syncope and bradycardia. Patient is interviewed today in the emergency center. Initially she did not remember why she is in the hospital. She states she came into the hospital due to gout in her right hand. Patient denies having any fall or loss of consciousness, no lightheadedness or dizziness. She denies having any chest pain. According to the ER records, patient was brought into the hospital for syncopal episode, weakness. Patient presented with heart rate as low as 37, blood pressure initially soft. Propranolol was placed on hold EKG sinus bradycardia at 49 with trifascicular block CBC unremarkable. INR 1. Electrolytes normal. BUN 22 creatinine 0.83. Magnesium 2. Total bilirubin 1.5, AST 215, ALT 76. Troponin negative x 1. C- reactive protein 0.5. Home cardiac medications: Amlodipine 5 mg daily, propranolol 10 mg twice daily. Echocardiogram performed in the office on 04/17/2023 revealed EF 60 to 65%. Mild to moderate aortic regurgitation, mild mitral regurgitation, mild tricuspid regurgitation, normal pulmonary artery systolic pressure. 02/12 Patient is seen today in follow-up. Reviewed telemetry and she has not had significant bradycardia. Heart rate has been running in the 60s. Orthostatic vital signs negative. TSH 1.57. Echocardiogram reveals normal LV function. Mild dilatation of the right ventricle. Mild tricuspid regurgitation. 02/13 Patient is seen today in follow-up. No new concerns. No chest pain. No shortness of breath. Blood pressure 144/74, heart rate 77, pulse ox 97% on room air. Yesterday, amlodipine was increased to 10 mg daily and hydrochlorothiazide was added. Physical examination: Gen: This is an 83-year-old female in no acute distress VS: reviewed HEENT: Head is atraumatic, normocephalic. Pupils equal, round. Sclerae is anicteric. NECK: Supple. No JVD. LUNGS: Clear to auscultation. No wheezes or rhonchi. No intercostal retractions. HEART: Regular rate and rhythm. Systolic murmur concerning for ABDOMEN: Soft No tenderness. EXTREMITIES: No pedal edema. No calf tenderness. NEUROLOGICAL: Patient is awake, alert. Assessment: Bradycardia with trifascicular block Possible syncope but patient denies Rule out acute coronary syndrome and thyroid disease Elevated liver function test Hypertension Dyslipidemia Mitral and aortic regurgitation Plan: Continue patient's home cardiac medications Continue to hold propranolol and avoid any AV rogelio blocking agents Schedule patient for event monitor 30-day prior to discharge Continue the addition of amlodipine 10 mg daily and hydrochlorothiazide 25 mg daily. No medication changes made today. Patient is cleared for discharge from cardiology May follow-up with Dr. Shahab Soto in 5 weeks. Nurse practitioner note has been reviewed, I agree with documented findings and plan of care. Patient was seen and examined. Objective - Vital Signs Vital signs: Vital Signs Temp 97.8 F 02/14/24 04:00 Pulse 64 02/14/24 04:00 Resp 18 02/14/24 04:00 BP 171/98 02/14/24 04:00 Pulse Ox 96 02/14/24 04:00 FiO2 Intake & Output 02/13/24 02/14/24 02/14/24 18:59 06:59 18:59 Intake Total 538 Balance 538 Intake: Oral 538 Other: Voiding Method Toilet Toilet # Voids 2 2 # Bowel Movements 1 - Labs CBC & Chem 7: 02/11/24 07:59 02/11/24 07:59
--- NOTE | 2024-02-15 14:57 | P.DS ---
Providers Date of admission: 02/11/24 10:13 Expected date of discharge: 02/14/24 Attending physician: Jh Garcia Consults: 02/11/24 10:12 Consult Physician Urgent Consulting Provider: Uri Damon Consult Reason/Comments: syncope, bradycardia Do you want consulting provider notified?: Yes 02/13/24 16:05 Consult Physician Routine Consulting Provider: Marcos Gamez Consult Reason/Comments: abnomal hip xray Do you want consulting provider notified?: Yes Primary care physician: Jh Garcia Hospital Course: Final Diagnoses: Bradycardia, EKG reporting trifascicular block per cardiology review. Near syncope, reoccurrent, reported per Left hip and knee pain, x-rays pending Elevated LFTs Hypertension Dyslipidemia Dementia Left hip, thigh and knee pain, x-rays pending, final recommendations and DC clearance as per orthopedic surgery pending. Hospital course:This is an 83-year-old female with past medical history significant for hypertension, dyslipidemia, dementia, osteoarthritis,RA, gastroesophageal reflux disease, history of CVA/TIA, pancreatitis-previously worked up at [facility],constipation and multiple other medical issues brought into the ER via EMS for near syncope, increased generalized weakness, status post fall. reports that patient had been complaining of increased weakness in her bilateral knees, while standing, fell onto her patient, knocking them both over. They both landed on the floor without any head trauma. No syncope. Reports over the last couple years patient has had multiple near syncopal spells. Denies chest pain, palpitations or shortness of breath. Heart rate on admission was 37, propranolol placed on hold. EKG reported sinus bradycardia with first-degree AV block, right bundle branch block-further review per cardiology pending. troponin negative x 1. Hematology unremarkable with the exception of MCV 100.8, INR 1, electrolytes within normal limits, BUN 22, creatinine 0.83, glucose 107, total bili 1.5, AST 215, ALT 76, alk phos 72, CRP less than 0.5.Echo from 02/08/2023 reporting normal LV function, aortic sclerosis without significant stenosis. 02/13/2024 orthostatic vital signs negative. Heart rate 50-100, hypertensive. Norvasc increased. TSH 1.57. Echo reporting normal LV function, mild dilatation of right ventricle, mild tricuspid regurgitation. cleared by cardiology for discharge. Initially had planned for discharge but patient now complaining of left lower extremity -hip, thigh and knee pain. Currently sitting up in bed with knees bent, no bruising noted. X-rays ordered. Denies chest pain, palpitations or shortness of breath. Maintaining O2 sats in the high 90s on room air. Repeat blood pressure pending.continue holding propranolol ,Norvasc increased, event monitor,cleared for discharge as per cardiology. Discharge placed on hold, x-rays of left lower extremity ordered. Blood pressure 144/74, O2 sat 97% on room air, cleared by cardiology for discharge.at discharge continue holding propranolol .30-day event monitor prior to discharge .x-rays of the left hip reveal a lucency about the greater trochanter suspicious for nondisplaced fracture.Left knee x-rays reported total knee arthroplasty changes with hardware intact and appropriate alignment, no fractures identified. Evaluated by orthopedic surgery, Hip CT and shoulder x-ray ordered per orthopedic surgery. Patient will be discharged home today in a stable condition with guarded prognosis pending final DC recommendations and clearance per orthopedic surgery. The impression and plan of care has been dictated as directed. : I performed a history and examination of this patient, discussed the same with the dictator. I agree with the dictator's note ,documented as a scribe. Any additional findings or plans will be noted. Patient Condition at Discharge: Stable Plan - Discharge Summary Discharge Rx Participant: No New Discharge Prescriptions: New amLODIPine [Norvasc] 10 mg PO DAILY #30 tab hydroCHLOROthiazide [Hydrodiuril] 25 mg PO DAILY #30 tab Acetaminophen-Codeine 300-30mg [Tylenol w/codeine #3] 1 each PO Q8H PRN #9 tab PRN Reason: Pain Continue Baclofen [Lioresal] 10 mg PO BID PRN PRN Reason: Muscle Spasm Dicyclomine [Bentyl] 10 mg PO QID PRN PRN Reason: IBS rOPINIRole HCL [Requip] 1 mg PO QID PRN PRN Reason: restless legs rOPINIRole HCL [rOPINIRole HCL ER (XL)] 6 mg PO HS Omeprazole [PriLOSEC] 20 mg PO HS Rizatriptan Benzoate [Rizatriptan] 10 mg PO DAILY PRN PRN Reason: onset migraine Venlafaxine HCl ER [Effexor XR] 75 mg PO DAILY Donepezil HCl [Aricept] 10 mg PO HS Discontinued Propranolol [Inderal] 10 mg PO BID amLODIPine [Norvasc] 5 mg PO DAILY Discharge Medication List Baclofen [Lioresal] 10 mg PO BID PRN 04/23/20 [History] Dicyclomine [Bentyl] 10 mg PO QID PRN 04/23/20 [History] Venlafaxine HCl ER [Effexor XR] 75 mg PO DAILY 02/07/23 [History] rOPINIRole HCL [Requip] 1 mg PO QID PRN 04/12/23 [History] Donepezil HCl [Aricept] 10 mg PO HS 02/11/24 [History] Omeprazole [PriLOSEC] 20 mg PO HS 02/11/24 [History] Rizatriptan Benzoate [Rizatriptan] 10 mg PO DAILY PRN 02/11/24 [History] rOPINIRole HCL [rOPINIRole HCL ER (XL)] 6 mg PO HS 02/11/24 [History] amLODIPine [Norvasc] 10 mg PO DAILY #30 tab 02/13/24 [Rx] hydroCHLOROthiazide [Hydrodiuril] 25 mg PO DAILY #30 tab 02/13/24 [Rx] Acetaminophen-Codeine 300-30mg [Tylenol w/codeine #3] 1 each PO Q8H PRN #9 tab 02/14/24 [Rx] Follow up Appointment(s)/Referral(s): Jh Garcia DO [Primary Care Provider] - 3 Days (please call to make a follow-up appointment with Dr. Garcia) Booker Soto MD [STAFF PHYSICIAN] - 6 Weeks (Please call to make a follow-up appointment with the nutritional services host.) Activity/Diet/Wound Care/Special Instructions: Event monitor prior to discharge as per cardiology Discharge Disposition: HOME SELF-CARE
== END 2024-02-14 17:28 | disposition home or self-care (01) | DRG 310 ==
LOC: EC 07:25 → 3SCARD 10:13
PROVIDERS: ADMIT Family Medicine; ATTEND Family Medicine
DX: R00.1 Bradycardia, unspecified (principal); R53.1 Weakness; I45.3 Trifascicular block; F03.90 Unspecified dementia, unspecified severity, without behavioral disturbance, psychotic disturbance, mood disturbance, and anxiety; I10 Essential (primary) hypertension; G25.81 Restless legs syndrome; K58.9 Irritable bowel syndrome, unspecified; M06.9 Rheumatoid arthritis, unspecified; D64.9 Anemia, unspecified; Z87.440 Personal history of urinary (tract) infections; Z87.442 Personal history of urinary calculi; K21.9 Gastro-esophageal reflux disease without esophagitis; Z87.01 Personal history of pneumonia (recurrent); Z86.73 Personal history of transient ischemic attack (TIA), and cerebral infarction without residual deficits; E78.5 Hyperlipidemia, unspecified; I08.0 Rheumatic disorders of both mitral and aortic valves; R74.01 Elevation of levels of liver transaminase levels; M25.541 Pain in joints of right hand; M25.512 Pain in left shoulder; I08.3 Combined rheumatic disorders of mitral, aortic and tricuspid valves; M19.90 Unspecified osteoarthritis, unspecified site; M10.9 Gout, unspecified; Z79.899 Other long term (current) drug therapy; Z82.49 Family history of ischemic heart disease and other diseases of the circulatory system; Z85.828 Personal history of other malignant neoplasm of skin; Z96.653 Presence of artificial knee joint, bilateral; Z90.49 Acquired absence of other specified parts of digestive tract; Z88.1 Allergy status to other antibiotic agents; Z88.5 Allergy status to narcotic agent; Z86.79 Personal history of other diseases of the circulatory system; Z87.19 Personal history of other diseases of the digestive system; Z88.6 Allergy status to analgesic agent; Z98.42 Cataract extraction status, left eye; Z98.41 Cataract extraction status, right eye
CPT/HCPCS: 36415; 73501; 80053; 83735; 84443; 84484; 84550; 85025; 85610; 85730; 86140; 93005; 93270; 93306; 96361; 96374; 96375; 96376; 99285

== ENCOUNTER 2024-02-28 10:18 | Emergency (ER) | payer MEDICARE ==
[2024-02-28 10:25] VITALS: RESP 18
[2024-02-28] MEDS: MORPHINE SULFATE 4 MG/ML SYRINGE IVP STA (11:23)
--- NOTE | 2024-02-28 11:23 | XR ---
EXAMINATION TYPE: XR shoulder complete RT DATE OF EXAM: 02/28/2024 11:15 AM CLINICAL INDICATION:Female, 83 years old with history of Pain; [facility] COMPARISON: 05/06/2018 TECHNIQUE: XR shoulder complete RT; examined in AP, internally rotated and scapular Y projections. FINDINGS: No evidence of acute osseous pathology, joint dislocation, or soft tissue swelling. The remaining po rtions of the visualized chest are unremarkable. Degeneration changes of the acromion, distal clavic le with osteophyte formation. There is osteophyte formation of the glenoid and humeral head. There is severe joint space narrowing of glenohumeral joint. There is acetabularization of the acromion. IMPRESSION: 1. No acute osseous pathology. 2. Severe osteoarthrosis changes of the shoulder. 3. Probable rotator cuff tear which can be further evaluated with MRI if not already performed.
[2024-02-28] MEDS: methylPREDNISolone SOD SUCCI 125 MG/2 ML VIAL IV STA (11:24)
[2024-02-28] MEDS: COLCHICINE 0.6 MG EACH PO STA (11:24)
[2024-02-28 11:25] VITALS: PULSE 70
--- NOTE | 2024-02-28 11:29 | ED ---
Extremity Problem HPI - General Chief complaint: Extremity Injury, Upper Stated complaint: R Arm Pain Time Seen by Provider: 02/28/24 10:32 Source: patient, RN notes reviewed Mode of arrival: wheelchair Limitations: physical limitation - History of Present Illness Initial comments: This is an 83-year-old female who presents to the emergency department for right arm pain. States that it started 3 days ago. Pain started in the shoulder and upper arm and has now started to travel downwards. States that she has a history of gout in the right wrist and symptoms feel similar. However, unsure how this diagnosis was officially made and states that medications were not effective for her. Denies any injuries to the arm. States that yesterday she noticed swelling that has since resolved. She was unable to sleep due to the pain. Denies any discoloration to the arm. Also denies any chest pain or shortness of breath. - Related Data Home Medications Medication Instructions Recorded Confirmed Baclofen [Lioresal] 10 mg PO BID PRN 04/23/20 02/11/24 Dicyclomine [Bentyl] 10 mg PO QID PRN 04/23/20 02/11/24 Venlafaxine HCl ER [Effexor XR] 75 mg PO DAILY 02/07/23 02/11/24 rOPINIRole HCL [Requip] 1 mg PO QID PRN 04/12/23 02/11/24 Donepezil HCl [Aricept] 10 mg PO HS 02/11/24 02/11/24 Omeprazole [PriLOSEC] 20 mg PO HS 02/11/24 02/11/24 Rizatriptan Benzoate [Rizatriptan] 10 mg PO DAILY PRN 02/11/24 02/11/24 rOPINIRole HCL [rOPINIRole HCL ER 6 mg PO HS 02/11/24 02/11/24 (XL)] Previous Rx's Medication Instructions Recorded amLODIPine [Norvasc] 10 mg PO DAILY #30 tab 02/13/24 hydroCHLOROthiazide [Hydrodiuril] 25 mg PO DAILY #30 tab 02/13/24 Acetaminophen-Codeine 300-30mg 1 each PO Q8H PRN #9 tab 02/14/24 [Tylenol w/codeine #3] Colchicine 0.6 mg PO DIRECTED #10 tablet 02/28/24 HYDROcodone/APAP 5-325MG [Lilburn 1 tab PO Q6HR PRN 3 Days #12 tab 02/28/24 5-325] Allergies Allergy/AdvReac Type Severity Reaction Status Date / Time cephalexin [From Keflex] Allergy Unknown Verified 02/28/24 10:25 etodolac [From Lodine] Allergy Rash/Hives Verified 02/28/24 10:25 nabumetone [From Relafen] Allergy Rash/Hives Verified 02/28/24 10:25 naproxen [From Naprosyn] Allergy Rash/Hives Verified 02/28/24 10:25 NSAIDS (Non-Steroidal Allergy Rash/Hives Verified 02/28/24 10:25 Anti-Inflamma Review of Systems ROS Statement: Those systems with pertinent positive or pertinent negative responses have been documented in the HPI. ROS Other: All systems not noted in ROS Statement are negative. Past Medical History Past Medical History: Cancer, CVA/TIA, GERD/Reflux, Hyperlipidemia, Osteoarthritis (OA), Pneumonia, Rheumatoid Arthritis (RA) Additional Past Medical History / Comment(s): pancreatitis, U/s and biopsy of pancreas at [facility], anemia, kidney stones/UTIs, skin cancer, migraines, RLS, generalized pain d/t RA/OA, constipation, past ileus, IBS History of Any Multi-Drug Resistant Organisms: None Reported Past Surgical History: Breast Surgery, Cholecystectomy, Hernia Repair, Joint Replacement, Orthopedic Surgery Additional Past Surgical History / Comment(s): Rotator cuff (R); Ric Knee Re placement; Panniculectomy, lizzie fundoplication/repair paraesophageal hernia, bilateral legs varicose vein surgery, colonoscopies-normal, bilateral cataract removal, FNA abdominal seroma, cystoscopy/bladder bx/lithotripsy with R ureteral stent, skin cancer removal, bilateral benign breast biopsies, bilateral feet/toe surgeries/4th R toe amp Past Anesthesia/Blood Transfusion Reactions: No Reported Reaction Additional Past Anesthesia/Blood Transfusion Reaction / Comment(s): Pt has received blood after panniculectomy without reaction. Past Psychological History: No Psychological Hx Reported Smoking Status: Never smoker Past Alcohol Use History: None Reported Past Drug Use History: None Reported - Past Family History Mother History Unknown: Yes Family Medical History: Myocardial Infarction (MO) Additional Family Medical History / Comment(s): Mother at age 69 yrs after having the flu and complicated by a MO. Father History Unknown: Yes Additional Family Medical History / Comment(s): IBS. Father at age 78yrs. General Exam Limitations: physical limitation General appearance: alert, in no apparent distress Head exam: Present: atraumatic, normocephalic, normal inspection Respiratory exam: Present: normal lung sounds bilaterally. Absent: respiratory distress, wheezes, rales, rhonchi, stridor Cardiovascular Exam: Present: regular rate, normal rhythm, normal heart sounds. Absent: systolic murmur, diastolic murmur, rubs, gallop, clicks Extremities exam: Present: other (Tenderness to palpation over the right shoulder. ROM induces pain. No deformities, swelling, erythema, or temperature changes. 2+ radial pulses. ) Neurological exam: Present: alert, oriented X3, CN II-XII intact Psychiatric exam: Present: normal affect, normal mood Skin exam: Present: warm, dry, intact, normal color. Absent: rash Course Vital Signs 02/28/24 02/28/24 02/28/24 10:20 11:20 13:35 Temperature 97.9 F 98 F Pulse Rate 73 70 70 Respiratory 18 18 18 Rate Blood Pressure 131/62 136/78 132/86 O2 Sat by Pulse 95 98 98 Oximetry Medical Decision Making - Medical Decision Making This is an 83 year old female who presents to the emergency department for right arm pain. Was pt. sent in by a medical professional or institution? @ -No Did you speak to anyone other than the patient for history? @ -No Did you review nursing and triage notes? @ -Yes, and I agree, it is accurate with regards to the patient's symptoms. Were old charts reviewed? @ -No Differential Diagnosis? @ -Differential Musculoskeletal: Muscular strain, contusion, ligament sprain, fracture, arthritis, septic arth ritis, bursitis, cellulitis, muscle spasm, nerve compression, DVT, arterial occlusion, herpes zoster, electrolyte abnormality, tumor.... This is not meant to be in all inclusive list EKG interpreted by me (3pts min.)? @ -EKG interpreted by me demonstrating the following: Sinus rhythm. Ventricular rate 68 bpm, MI interval 260 ms, QRS duration 157 ms, QTc 463 ms. X-rays interpreted by me (1pt min.)? @ -X-ray of the right shoulder obtained. My interpretation identifies no acute fractures. CT interpreted by me (1pt min.)? @ -Not obtained U/S interpreted by me (1pt. min.)? @ -Duplex US of the right upper extremity obtained. My interpretation identifies no evidence of a DVT. What testing was considered but not performed? (CT, X-rays, U/S, labs)? Why? @ -None What meds were considered but not given? Why? @ -None Did you discuss the management of the patient with other professionals? @ -No Did you reconcile home meds? @ -No Was smoking cessation discussed for >3mins.? @ -No Was critical care preformed (if so, how long)? @ -No Were there social determinants of health that impacted care today? How? (Homelessness, low income, unemployed, alcoholism, drug addiction, transportation, low edu. Level, literacy, decrease access to med. care, penitentiary, rehab)? @ -No Was there de-escalation of care discussed even if they declined? (Discuss DNR or withdrawal of care, Hospice)? @ -No What co-morbidities impacted this encounter? (DM, HTN, Smoking, COPD, CAD, Cancer, CVA, Hep., AIDS, mental health diagnosis, sleep apnea, morbid obesity)? @ -Osteoarthritis, rheumatoid arthritis Was patient admitted / discharged? @ -Discharged. Lab work demonstrates leukocytosis and was otherwise unremarkable. X-ray of the right shoulder demonstrates severe osteoarthritis and probable rotator cuff tear. Duplex ultrasound of the right upper extremity demonstrates no evidence of a DVT or other acute findings. There were no external changes or notable irregularities to the right upper extremity. She had most of the tenderness to the right shoulder and symptoms were all reproducible. Discussed that physical examination is not consistent with gout, however given that she is concerned that symptoms feel similar, advised that we can treat her for this. Discussed that symptoms may also be related to suspected rotator cuff tear on x-ray. Given her allergy to NSAIDs, will treat with Colcrys for potential gout. She was also given a prescription for Lilburn to help with pain management. She is advised to take this sparingly when her pain is the most severe and to otherwise take Tylenol. She was also given information to follow-up with orthopedics. Undiagnosed new problem with uncertain prognosis? @ -None Drug Therapy requiring intensive monitoring for toxicity (Heparin, Nitro, Insulin, Cardizem)? @ -None Were any procedures done? @ -None Diagnosis/symptom? @ -Right arm pain Acute, or Chronic, or Acute on Chronic? @ -Acute Uncomplicated (without systemic symptoms) or Complicated (systemic symptoms)? @ -Uncomplicated Side effects of treatment? @ -None Exacerbation, Progression, or Severe Exacerbation] @ -Not applicable Poses a threat to life or bodily function? @ -This is limiting her use of the right arm. Return precautions reviewed in depth, the patient is instructed to return to the emergency department with any new, worsening, or concerning symptoms. Patient verbalized understanding. This case was discussed in detail with the attending ED physician, Dr. Draper. Presentation, findings, and treatment plan discussed in detail as well. - Lab Data Result diagrams: 02/28/24 11:20 02/28/24 11:20 Lab Results 02/28/24 02/28/24 02/28/24 Range/Units 11:20 11:20 11:20 WBC 13.5 H (3.8-10.6) k/uL RBC 4.69 (3.80-5.40) m/uL Hgb 14.7 (11.4-16.0) gm/dL Hct 47.0 H (34.0-46.0) % MCV 100.2 H (80.0-100.0) fL MCH 31.4 (25.0-35.0) pg MCHC 31.3 (31.0-37.0) g/dL RDW 12.0 (11.5-15.5) % Plt Count 248 (150-450) k/uL MPV 7.4 Neutrophils % 83 % Lymphocytes % 9 % Monocytes % 6 % Eosinophils % 1 % Basophils % 0 % Neutrophils # 11.2 H (1.3-7.7) k/uL Lymphocytes # 1.2 (1.0-4.8) k/uL Monocytes # 0.8 (0-1.0) k/uL Eosinophils # 0.1 (0-0.7) k/uL Basophils # 0.0 (0-0.2) k/uL Sodium 137 (137-145) mmol/L Potassium 3.4 L (3.5-5.1) mmol/L Chloride 99 (98-107) mmol/L Carbon Dioxide 32 H (22-30) mmol/L Anion Gap 6 mmol/L BUN 31 H (7-17) mg/dL Creatinine 1.02 (0.52-1.04) mg/dL Est GFR (CKD-EPI)AfAm 60 (>60 ml/min/1.73 sqM) Est GFR (CKD-EPI)NonAf 52 (>60 ml/min/1.73 sqM) Glucose 111 H (74-99) mg/dL Plasma Lactic Acid Hebert 1.0 (0.7-2.0) mmol/L Uric Acid 5.8 (3.7-7.4) mg/dL Calcium 9.1 (8.4-10.2) mg/dL Total Bilirubin 1.4 H (0.2-1.3) mg/dL AST 23 (14-36) U/L ALT 17 (4-34) U/L Alkaline Phosphatase 105 (38-126) U/L Troponin I (0.000-0.034) ng/mL Total Protein 7.2 (6.3-8.2) g/dL Albumin 4.2 (3.5-5.0) g/dL 02/28/24 Range/Units 11:20 WBC (3.8-10.6) k/uL RBC (3.80-5.40) m/uL Hgb (11.4-16.0) gm/dL Hct (34.0-46.0) % MCV (80.0-100.0) fL MCH (25.0-35.0) pg MCHC (31.0-37.0) g/dL RDW (11.5-15.5) % Plt Count (150-450) k/uL MPV Neutrophils % % Lymphocytes % % Monocytes % % Eosinophils % % Basophils % % Neutrophils # (1.3-7.7) k/uL Lymphocytes # (1.0-4.8) k/uL Monocytes # (0-1.0) k/uL Eosinophils # (0-0.7) k/uL Basophils # (0-0.2) k/uL Sodium (137-145) mmol/L Potassium (3.5-5.1) mmol/L Chloride (98-107) mmol/L Carbon Dioxide (22-30) mmol/L Anion Gap mmol/L BUN (7-17) mg/dL Creatinine (0.52-1.04) mg/dL Est GFR (CKD-EPI)AfAm (>60 ml/min/1.73 sqM) Est GFR (CKD-EPI)NonAf (>60 ml/min/1.73 sqM) Glucose (74-99) mg/dL Plasma Lactic Acid Hebert (0.7-2.0) mmol/L Uric Acid (3.7-7.4) mg/dL Calcium (8.4-10.2) mg/dL Total Bilirubin (0.2-1.3) mg/dL AST (14-36) U/L ALT (4-34) U/L Alkaline Phosphatase (38-126) U/L Troponin I <0.012 (0.000-0.034) ng/mL Total Protein (6.3-8.2) g/dL Albumin (3.5-5.0) g/dL - Radiology Data Radiology results: report reviewed, image reviewed Disposition Clinical Impression: Right arm pain, Rotator cuff tear, right Disposition: HOME SELF-CARE Instructions (If sedation given, give patient instructions): Rotator Cuff Injury (ED) Additional Instructions: Return to the emergency department with any new, worsening, or concerning symptoms. Take the colchicine as 2 tablets followed by an additional tablet of the 1 hour, 2-hour, and 3-hour becky. Take the Lilburn sparingly when your pain is the most severe and be aware that it may make you drowsy. You may also take Ty lenol. Contact orthopedics as listed below for a follow-up appointment. Let them know that you had an x-ray of your right shoulder demonstrating a suspected rotator cuff tear. Follow up with your primary care provider in 1-2 days. Prescriptions: Colchicine 0.6 mg PO DIRECTED #10 tablet HYDROcodone/APAP 5-325MG [Lilburn 5-325] 1 tab PO Q6HR PRN 3 Days #12 tab PRN Reason: Pain Is patient prescribed a controlled substance at d/c from ED?: Yes When asked, does pt state using other controlled substances?: No If prescribed controlled substance>3 days was MAPS reviewed?: Prescribed <3 Days Referrals: Jh Garcia DO [Primary Care Provider] - 1-2 days Marcos Gamez MD [STAFF PHYSICIAN] - 1-2 days Time of Disposition: 13:26
[2024-02-28 11:35] LABS: Basophils % (A) 0 %; Eosinophils # (A) 0.1 k/uL (0-0.7); Eosinophils % (A) 1 %; HGB 14.7 gm/dL (11.4-16.0); Lymphocytes # (A) 1.2 k/uL (1.0-4.8); Lymphocytes % (A) 9 %; MCH 31.4 pg (25.0-35.0); MCHC 31.3 g/dL (31.0-37.0); MCV 100.2 fL (80.0-100.0); Mean Platelet Volume 7.4; Monocytes # (A) 0.8 k/uL (0-1.0); Monocytes % (A) 6 %; Neutrophils # (A) 11.2 k/uL (1.3-7.7); Neutrophils % (A) 83 %; Platelet Count 248 k/uL (150-450); RBC 4.69 m/uL (3.80-5.40); WBC 13.5 k/uL (3.8-10.6)
--- NOTE | 2024-02-28 12:03 | US ---
EXAMINATION TYPE: US venous doppler duplex UE RT DATE OF EXAM: 02/28/2024 COMPARISON: NONE CLINICAL INDICATION: Female, 83 years old with history of Pain; Patient denies any other signs, sympt oms, or relevant history; Hx gout SIDE PERFORMED: Right Right Arm: Negative for DVT IMPRESSION: Grayscale, color doppler, spectral doppler imaging performed of the deep veins of the right upper ext remity. There is normal flow, compressibility and vascular waveforms.
[2024-02-28 12:36] LABS: ALT 17 U/L (4-34); AST 23 U/L (14-36); African American GFR (CKD) 60 (>60 ml/min/1.73 sqM); Albumin 4.2 g/dL (3.5-5.0); Alkaline Phosphatase 105 U/L (38-126); Anion Gap 6 mmol/L; Blood Urea Nitrogen 31 mg/dL (7-17); Calcium 9.1 mg/dL (8.4-10.2); Carbon Dioxide 32 mmol/L (22-30); Chloride 99 mmol/L (98-107); Glucose 111 mg/dL (74-99); Non-African American GFR(CKD) 52 (>60 ml/min/1.73 sqM); Potassium 3.4 mmol/L (3.5-5.1); Sodium 137 mmol/L (137-145); Total Bilirubin 1.4 mg/dL (0.2-1.3); Total Protein 7.2 g/dL (6.3-8.2); Uric Acid 5.8 mg/dL (3.7-7.4)
[2024-02-28 13:37] VITALS: BP 132/86; TEMP 98
[2024-02-28 19:54] LABS: C Reactive Protein 1.5 mg/dL (<1.0)
== END 2024-02-28 13:35 | disposition home or self-care (01) ==
LOC: EC 10:18
DX: M75.101 Unspecified rotator cuff tear or rupture of right shoulder, not specified as traumatic (principal); Z88.1 Allergy status to other antibiotic agents; Z88.8 Allergy status to other drugs, medicaments and biological substances
CPT/HCPCS: 36415; 80053; 83605; 84484; 84550; 85025; 86140; 93005; 96374; 96375; 99284

== ENCOUNTER 2024-06-14 03:31 | Observation (INO) | payer MEDICARE ==
[2024-06-14 05:48] LABS: Basophils % (A) 0 %; Eosinophils # (A) 0.1 k/uL (0-0.7); Eosinophils % (A) 2 %; HCT 39.9 % (34.0-46.0); HGB 12.7 gm/dL (11.4-16.0); Lymphocytes # (A) 1.3 k/uL (1.0-4.8); Lymphocytes % (A) 20 %; MCH 31.4 pg (25.0-35.0); MCV 98.1 fL (80.0-100.0); Mean Platelet Volume 7.2; Monocytes # (A) 0.6 k/uL (0-1.0); Monocytes % (A) 10 %; Neutrophils # (A) 4.3 k/uL (1.3-7.7); Neutrophils % (A) 65 %; Platelet Count 200 k/uL (150-450); RBC 4.06 m/uL (3.80-5.40); RDW 12.5 % (11.5-15.5); WBC 6.7 k/uL (3.8-10.6)
[2024-06-14] MEDS: MORPHINE SULFATE 4 MG/ML SYRINGE IVP STA (05:56)
[2024-06-14 05:58] LABS: ALT 13 U/L (4-34); AST 27 U/L (14-36); African American GFR (CKD) >90 (>60 ml/min/1.73 sqM); Albumin 3.6 g/dL (3.5-5.0); Alkaline Phosphatase 72 U/L (38-126); Anion Gap 2 mmol/L; Blood Urea Nitrogen 26 mg/dL (7-17); C Reactive Protein 2.7 mg/dL (<1.0); Calcium 8.6 mg/dL (8.4-10.2); Carbon Dioxide 25 mmol/L (22-30); Chloride 109 mmol/L (98-107); Glucose 99 mg/dL (74-99); Non-African American GFR(CKD) 83 (>60 ml/min/1.73 sqM); Potassium 4.4 mmol/L (3.5-5.1); Sodium 136 mmol/L (137-145); Total Bilirubin 0.8 mg/dL (0.2-1.3); Total Protein 6.4 g/dL (6.3-8.2)
--- NOTE | 2024-06-14 07:34 | ED ---
Extremity Problem HPI - General Chief complaint: Extremity Problem,Nontraumatic Stated complaint: Right hand pain Time Seen by Provider: 06/14/24 03:35 Source: patient Mode of arrival: ambulatory Limitations: no limitations - History of Present Illness Initial comments: 84-year-old female with past medical history of rheumatoid arthritis who presents emergency department reporting right hand pain. States has been going on for the past week. Said it is red and swollen. She saw Dr. Garcia. He did prescribe a cream however the at bedside does not know what it was. States that the pain is continuing. She typically does not take any pain me dications at home for her RA. She does admit to a history of gout no fevers. Admits pain is now radiating up her forearm. No other alleviating, precipitating or modifying factors - Related Data Home Medications Medication Instructions Recorded Confirmed Baclofen [Lioresal] 10 mg PO BID PRN 04/23/20 06/14/24 Dicyclomine [Bentyl] 10 mg PO QID PRN 04/23/20 06/14/24 Venlafaxine HCl ER [Effexor XR] 75 mg PO DAILY 02/07/23 06/14/24 rOPINIRole HCL [Requip] 1 mg PO QID PRN 04/12/23 06/14/24 Donepezil HCl [Aricept] 10 mg PO HS 02/11/24 06/14/24 Omeprazole [PriLOSEC] 20 mg PO HS 02/11/24 06/14/24 rOPINIRole HCL [rOPINIRole HCL ER 6 mg PO HS 02/11/24 06/14/24 (XL)] ALPRAZolam [Xanax] 0.25 mg PO HS PRN 06/14/24 06/14/24 Rizatriptan Odt [Maxalt VISCOSITY WORKER] 10 mg PO DAILY PRN 06/14/24 06/14/24 Topiramate [Topamax] 50 mg PO BID 06/14/24 06/14/24 amLODIPine [Norvasc] 5 mg PO DAILY 06/14/24 06/14/24 Previous Rx's Medication Instructions Recorded Acetaminophen Tab [Tylenol] 650 mg PO Q6H #1 tab 06/16/24 predniSONE 10 mg PO DIRECTED #30 tab 06/16/24 Allergies Allergy/AdvReac Type Severity Reaction Status Date / Time cephalexin [From Keflex] Allergy Unknown Verified 06/14/24 10:34 etodolac [From Lodine] Allergy Rash/Hives Verified 06/14/24 10:34 nabumetone [From Relafen] Allergy Rash/Hives Verified 06/14/24 10:34 naproxen [From Naprosyn] Allergy Rash/Hives Verified 06/14/24 10:34 NSAIDS (Non-Steroidal Allergy Rash/Hives Verified 06/14/24 10:34 Anti-Inflamma Review of Systems ROS Statement: Those systems with pertinent positive or pertinent negative responses have been documented in the HPI. ROS Other: All systems not noted in ROS Statement are negative. Past Medical History Past Medical History: Cancer, CVA/TIA, GERD/Reflux, Hyperlipidemia, Osteoarthritis (OA), Pneumonia, Rheumatoid Arthritis (RA) Additional Past Medical History / Comment(s): pancreatitis, U/s and biopsy of pancreas at [facility], anemia, kidney stones/UTIs, skin cancer, migraines, RLS, generalized pain d/t RA/OA, constipation, past ileus, IBS History of Any Multi-Drug Resistant Organisms: None Reported Past Surgical History: Breast Surgery, Cholecystectomy, Hernia Repair, Joint Replacement, Orthopedic Surgery Additional Past Surgical History / Comment(s): Rotator cuff (R); Ric Knee Replacement; Panniculectomy, lizzie fundoplication/repair paraesophageal hernia, bilateral legs varicose vein surgery, colonoscopies-normal, bilateral cataract removal, FNA abdominal seroma, cystoscopy/bladder bx/lithotripsy with R ureteral stent, skin cancer removal, bilateral benign breast biopsies, bilateral feet/toe surgeries/4th R toe amp Past Anesthesia/Blood Transfusion Reactions: No Reported Reaction Additional Past Anesthesia/Blood Transfusion Reaction / Comment(s): Pt has received blood after panniculectomy without reaction. Past Psychological History: No Psychological Hx Reported Smoking Status: Never smoker Past Alcohol Use History: None Reported Past Drug Use History: None Reported - Past Family History Mother History Unknown: Yes Family Medical History: Myocardial Infarction (OR) Additional Family Medical History / Comment(s): Mother at age 69 yrs after having the flu and complicated by a OR. Father History Unknown: Yes Additional Family Medical History / Comment(s): IBS. Father at age 78yrs. General Exam Limitations: no limitations General appearance: alert, in no apparent distress Head exam: Present: atraumatic, normocephalic, normal inspection Eye exam: Present: normal appearance, PERRL, EOMI. Absent: scleral icterus, conjunctival injection, periorbital swelling ENT exam: Present: normal exam, mucous membranes moist Neck exam: Present: normal inspection. Absent: tenderness, meningismus, lymphadenopathy Respiratory exam: Present: normal lung sounds bilaterally. Absent: respiratory distress, wheezes, rales, rhonchi, stridor Cardiovascular Exam: Present: regular rate, normal rhythm, normal heart sounds. Absent: systolic murmur, diastolic murmur, rubs, gallop, clicks GI/Abdominal exam: Present: soft, normal bowel sounds. Absent: distended, tenderness, guarding, rebound, rigid Extremities exam: Present: tenderness (The dorsal aspect of the right hand. There is prominent swelling over the MCP joints. 2+ radial and ulnar pulses), normal capillary refill. Absent: pedal edema, joint swelling, calf tenderness Back exam: Present: normal inspection Neurological exam: Present: alert, oriented X3, CN II-XII intact Psychiatric exam: Present: normal affect, normal mood Skin exam: Present: warm, dry, intact, normal color. Absent: rash Course Vital Signs 06/14/24 06/14/24 06/14/24 03:32 05:57 08:00 Temperature 98.6 F 97.8 F Pulse Rate 67 69 59 L Respiratory 18 18 22 Rate Blood Pressure 166/81 126/71 111/92 O2 Sat by Pulse 97 94 L 100 Oximetry 06/14/24 06/14/24 09:50 11:20 Temperature 97.9 F Pulse Rate 61 77 Respiratory 20 18 Rate Blood Pressure 129/61 113/60 O2 Sat by Pulse 98 100 Oximetry Medical Decision Making - Medical Decision Making Was pt. sent in by a medical professional or institution (, PA, GRAVITY PROSPECTING OPERATOR HELPER, urgent care, hospital, or [facility]...) When possible be specific @ -No Did you speak to anyone other than the patient for history (EMS, parent, family, police, friend...)? What history was obtained from this source @ -Spoke with for history Did you review nursing and triage notes (agree or disagree)? Why? @ -I reviewed and agree with nursing and triage notes Were old charts reviewed (outside hosp., previous admission, EMS record, old EKG, old radiological studies, urgent care reports/EKG's, [facility] records)? Report findings @ -No old charts were reviewed Differential Diagnosis (chest pain, altered mental status, abdominal pain women, abdominal pain men, vaginal bleeding, weakness, fever, dyspnea, syncope, headache, dizziness, GI bleed, back pain, seizure, CVA, palpatations, mental health, musculoskeletal)? @ -Gout, septic arthritis, rheumatoid arthritis exacerbation, fracture EKG interpreted by me (3pts min.). @ -Not done X-rays interpreted by me (1pt min.). @ -Yes and demonstrates advanced degeneration without fracture CT interpreted by me (1pt min.). @ -None done U/S interpreted by me (1pt. min.). @ -None done What testing was considered but not performed or refused? (CT, X-rays, U/S, labs)? Why? @ -None What meds were considered but not given or refused? Why? @ -None Did you discuss the management of the patient with other professionals (professionals i.e. , PA, GRAVITY PROSPECTING OPERATOR HELPER, lab, RT, psych nurse, hospital social worker, academic advisor, teacher, dispatch officer, rn case manager hospice)? Give summary @ -Spoke with Elizabet from [facility] to admit the patient. She has no alleviation in her pain with morphine and therefore does require pain management and orthopedic consult Was smoking cessation discussed for >3mins.? @ -No Was critical care preformed (if so, how long)? @ -No Were there social determinants of health that impacted care today? How? (Homelessness, low income, unemployed, alcoholism, drug addiction, transportation, low edu. Level, literacy, decrease access to med. care, custodial, rehab)? @ -No Was there de-escalation of care discussed even if they declined (Discuss DNR or withdrawal of care, Hospice)? DNR status @ -No What co-morbidities impacted this encounter? (DM, HTN, Smoking, COPD, CAD, Cancer, CVA, ARF, Chemo, Hep., AIDS, mental health diagnosis, sleep apnea, morbid obesity)? @ -Rheumatoid arthritis Was patient admitted / discharged? Hospital course, mention meds given and route, prescriptions, significant lab abnormalities, going to OR and other pertinent info. @ -Upon arrival patient seen and evaluated in room 24. Thorough history and physical exam was performed. IV access was established. Laboratory studies were conducted. X-ray was performed. Results are discussed the patient. She has had no improvement in her pain with pain medications. Due to difficulty with controlling the patient's pain I did recommend admission for which she was agreeable. Spoke with Elizabet from [facility] for the admission Undiagnosed new problem with uncertain prognosis? @ -No Drug Therapy requiring intensive monitoring for toxicity (Heparin, Nitro, Insulin, Cardizem)? @ -No Were any procedures done? @ -No Diagnosis/symptom? @ -Acute right hand pain, inflammatory arthritis versus septic joint Acute, or Chronic, or Acute on Chronic? @ -Acute Uncomplicated (without systemic symptoms) or Complicated (systemic symptoms)? @ -Complicated Side effects of treatment? @ -No Exacerbation, Progression, or Severe Exacerbation? @ -No Poses a threat to life or bodily function? How? (Chest pain, USA, OR, pneumonia, PE, COPD, DKA, ARF, appy, cholecystitis, CVA, Diverticulitis, Homicidal, Suicidal, threat to staff... and all critical care pts) @ -No - Lab Data Result diagrams: 06/16/24 03:25 06/16/24 03:25 Lab Results 06/14/24 06/14/24 Range/Units 05:28 05:28 WBC 6.7 (3.8-10.6) k/uL RBC 4.06 (3.80-5.40) m/uL Hgb 12.7 (11.4-16.0) gm/dL Hct 39.9 (34.0-46.0) % MCV 98.1 (80.0-100.0) fL MCH 31.4 (25.0-35.0) pg MCHC 32.0 (31.0-37.0) g/dL RDW 12.5 (11.5-15.5) % Plt Count 200 (150-450) k/uL MPV 7.2 Neutrophils % 65 % Lymphocytes % 20 % Monocytes % 10 % Eosinophils % 2 % Basophils % 0 % Neutrophils # 4.3 (1.3-7.7) k/uL Lymphocytes # 1.3 (1.0-4.8) k/uL Monocytes # 0.6 (0-1.0) k/uL Eosinophils # 0.1 (0-0.7) k/uL Basophils # 0.0 (0-0.2) k/uL ESR 38 H (0-30) mm/Hr Sodium 136 L (137-145) mmol/L Potassium 4.4 (3.5-5.1) mmol/L Chloride 109 H (98-107) mmol/L Carbon Dioxide 25 (22-30) mmol/L Anion Gap 2 mmol/L BUN 26 H (7-17) mg/dL Creatinine 0.65 (0.52-1.04) mg/dL Est GFR (CKD-EPI)AfAm >90 (>60 ml/min/1.73 sqM) Est GFR (CKD-EPI)NonAf 83 (>60 ml/min/1.73 sqM) Glucose 99 (74-99) mg/dL Uric Acid 4.0 (3.7-7.4) mg/dL Calcium 8.6 (8.4-10.2) mg/dL Total Bilirubin 0.8 (0.2-1.3) mg/dL AST 27 (14-36) U/L ALT 13 (4-34) U/L Alkaline Phosphatase 72 (38-126) U/L C-Reactive Protein 2.7 H (<1.0) mg/dL Total Protein 6.4 (6.3-8.2) g/dL Albumin 3.6 (3.5-5.0) g/dL Disposition Clinical Impression: Right hand pain Disposition: ADMITTED IP TO THIS [facility] Condition: Stable Is patient prescribed a controlled substance at d/c from ED?: No Time of Disposition: 07:35 Decision to Admit Reason: Admit from EC Decision Date: 06/14/24 Decision Time: 07:35
[2024-06-14] MEDS ORDERED: MORPHINE SULFATE 4 MG/ML SYRINGE IV PRN (07:35)
[2024-06-14] MEDS ORDERED: NALOXONE 0.4 MG/ML 1 ML VIAL IV PRN (07:35)
--- NOTE | 2024-06-14 07:42 | XR ---
EXAMINATION TYPE: XR hand complete RT DATE OF EXAM: 06/14/2024 COMPARISON: None HISTORY: Redness swelling TECHNIQUE: 3 view right hand FINDINGS: Advanced degenerative joint changes at the distal interphalangeal joint space of the thumb. There is narrowing of the proximal and distal interphalangeal joint spaces. Some more advanced degen erative changes at the distal interphalangeal joint space fifth digit. Structures are osteopenic. No obvious acute fractures evident. Follow-up be performed as clinically i ndicated. Occult fracture may be difficult to visualize with osteopenia. On the lateral projection there is soft tissue swelling over the distal metacarpal phalangeal joint s paces.. IMPRESSION: 1. Soft tissue swelling dorsal metacarpal phalangeal joint spaces. 2. Advanced degenerative joint changes in the distal interphalangeal joint space of the thumb and fif th digit. Milder joint space narrowing is present through the remainder of the hand. 3. Osteopenia. This could be confirmed with bone density. [facility], , 06/14/2024 7:39 AM
[2024-06-14] MEDS: HYDROcodone/APAP 5-325MG 1 EACH TAB PO PRN (08:01)
[2024-06-14] MEDS: predniSONE 20 MG TAB PO STA (08:01)
--- NOTE | 2024-06-14 09:16 | P.CNOR ---
History of Present Illness - HPI Consult date: 06/14/24 History of present illness: This is an 84-year-old female who is admitted for right hand pain and flareup of her rheumatoid arthritis. Patient states that about 1 week ago she noticed more pain and swelling in the right hand. Patient reports a history of rheumatoid arthritis and she denies any injury or trauma to the right hand. Patient states that the right hand is very stiff and very painful. Patient denies any fever or chills, numbness, weakness or tingling. Patient states that she has been taking her normal medications for her RA. Patient's past medical history significant for hyperlipidemia, osteoarthritis, rheumatoid arthritis, GERD, history of CVA/TIA and history of skin cancer. Review of Systems See HPI. Past Medical History Past Medical History: Cancer, CVA/TIA, GERD/Reflux, Hyperlipidemia, Osteoarthritis (OA), Pneumonia, Rheumatoid Arthritis (RA) Additional Past Medical History / Comment(s): pancreatitis, U/s and biopsy of pancreas at [facility], anemia, kidney stones/UTIs, skin cancer, migraines, RLS, generalized pain d/t RA/OA, constipation, past ileus, IBS History of Any Multi-Drug Resistant Organisms: None Reported Past Surgical History: Breast Surgery, Cholecystectomy, Hernia Repair, Joint Replacement, Orthopedic Surgery Additional Past Surgical History / Comment(s): Rotator cuff (R); Ric Knee Replacement; Panniculectomy, lizzie fundoplication/repair paraesophageal hernia, bilateral legs varicose vein surgery, colonoscopies-normal, bilateral cataract removal, FNA abdominal seroma, cystoscopy/bladder bx/lithotripsy with R ureteral stent, skin cancer removal, bilateral benign breast biopsies, bilateral feet/toe surgeries/4th R toe amp Past Anesthesia/Blood Transfusion Reactions: No Reported Reaction Additional Past Anesthesia/Blood Transfusion Reaction / Comm: Pt has received blood after panniculectomy without reaction. Past Psychological History: No Psychological Hx Reported Smoking Status: Never smoker Past Alcohol Use History: None Reported Past Drug Use History: None Reported - Past Family History Mother History Unknown: Yes Family Medical History: Myocardial Infarction (OR) Additional Family Medical History / Comment(s): Mother at age 69 yrs after having the flu and complicated by a OR. Father History Unknown: Yes Additional Family Medical History / Comment(s): IBS. Father at age 78yrs. Medications and Allergies Home Medications Medication Instructions Recorded Confirmed Type Baclofen [Lioresal] 10 mg PO BID PRN 04/23/20 02/11/24 History Dicyclomine [Bentyl] 10 mg PO QID PRN 04/23/20 02/11/24 History Venlafaxine HCl ER [Effexor XR] 75 mg PO DAILY 02/07/23 02/11/24 History rOPINIRole HCL [Requip] 1 mg PO QID PRN 04/12/23 02/11/24 History Donepezil HCl [Aricept] 10 mg PO HS 02/11/24 02/11/24 History Omeprazole [PriLOSEC] 20 mg PO HS 02/11/24 02/11/24 History Rizatriptan Benzoate [Rizatriptan] 10 mg PO DAILY PRN 02/11/24 02/11/24 History rOPINIRole HCL [rOPINIRole HCL ER 6 mg PO HS 02/11/24 02/11/24 History (XL)] amLODIPine [Norvasc] 10 mg PO DAILY #30 tab 02/13/24 Rx hydroCHLOROthiazide [Hydrodiuril] 25 mg PO DAILY #30 tab 02/13/24 Rx Acetaminophen-Codeine 300-30mg 1 each PO Q8H PRN #9 tab 02/14/24 Rx [Tylenol w/codeine #3] Colchicine 0.6 mg PO DIRECTED #10 tablet 02/28/24 Rx HYDROcodone/APAP 5-325MG [[place] 1 tab PO Q6HR PRN 3 Days #12 tab 02/28/24 Rx 5-325] Allergies Allergy/AdvReac Type Severity Reaction Status Date / Time cephalexin [From Keflex] Allergy Unknown Verified 06/14/24 03:35 etodolac [From Lodine] Allergy Rash/Hives Verified 06/14/24 03:35 nabumetone [From Relafen] Allergy Rash/Hives Verified 06/14/24 03:35 naproxen [From Naprosyn] Allergy Rash/Hives Verified 06/14/24 03:35 NSAIDS (Non-Steroidal Allergy Rash/Hives Verified 06/14/24 03:35 Anti-Inflamma Physical Examination On exam patient is resting comfortably in bed in no acute distress. Patient is alert and oriented 3. Right hand: There is mild to moderate swelling and tenderness to palpation over the dorsal aspect of the right hand especially over the second and third MCP joints. There is no fluctuance. There is minimal erythema over the dorsal aspect of the right hand. Patient has stiffness with hand motion. Capillary refill is normal at less than 2 seconds. There is no tenderness to palpation over the right wrist. Patient has good range of motion of the right wrist. Sensation intact. Neurovascular status and circulatory status are intact. Results X-ray report of the right hand dated 06/14/2024 shows: 1. Soft tissue swelling dorsal metacarpal phalangeal joint spaces. 2. Advanced degenerative joint changes in the distal interphalangeal joint s pace of the thumb and fifth digit. Milder joint space narrowing is present through the remainder of the hand. 3. Osteopenia. This could be confirmed with bone density. - Labs Labs: Abnormal Lab Results - Last 24 Hours (Table) 06/14/24 Range/Units 05:28 Sodium 136 L (137-145) mmol/L Chloride 109 H (98-107) mmol/L BUN 26 H (7-17) mg/dL C-Reactive Protein 2.7 H (<1.0) mg/dL H & H 06/14/24 Range/Units 05:28 Hgb 12.7 (11.4-16.0) gm/dL Hct 39.9 (34.0-46.0) % Result Diagrams: 06/14/24 05:28 06/14/24 05:28 Assessment and Plan (1) Rheumatoid arthritis Current Visit: Yes Status: Acute Code(s): M06.9 - RHEUMATOID ARTHRITIS, UNSPECIFIED SNOMED Code(s): 83692076 (2) Right hand pain Current Visit: Yes Status: Acute Code(s): M79.641 - PAIN IN RIGHT HAND SNOMED Code(s): 66856685 Plan: 1. X-rays are reviewed. White blood cell count is within normal limits. Patient is afebrile and well-appearing. 2. Recommend continuation of prednisone. Patient is to work on range of motion of the right hand as tolerated. 3. There is no surgical intervention planned. We will continue to follow.
[2024-06-14 11:55] LABS: Erythrocyte Sedimentation Rate 38 mm/Hr (0-30)
[2024-06-14] MEDS ORDERED: HYDROmorphone 0.5 MG/0.5 ML SYRINGE IVP PRN (12:29)
[2024-06-14] MEDS ORDERED: ALPRAZolam 0.25 MG TAB PO PRN (12:30)
[2024-06-14] MEDS ORDERED: BACLOFEN 10 MG TAB PO PRN (12:30)
[2024-06-14] MEDS ORDERED: DEXTROSE 50% SYRINGE 50 ML IVP PRN ×2 (12:31)
--- NOTE | 2024-06-14 13:07 | HP ---
HISTORY AND PHYSICAL CHIEF COMPLAINTS: Pain and swelling of the right hand. HISTORY OF PRESENT ILLNESS: This 84-year-old woman with a past medical history of multiple problems including rheumatoid arthritis, DJD, history of pancreatitis, was complaining of severe pain and swelling of the right hand. There is no history of trauma and x-ray showed soft tissue swelling. Orthopedic Surgery has seen the patient. There is no history of fever, rigors, chills at this time. PAST MEDICAL HISTORY: Reviewed. Include DJD, pneumonia, hyperlipidemia. Rest of the history and rest of the chart is also reviewed. HOME MEDICATIONS: Reviewed. medications reviewed. ALLERGIES: Keflex. FAMILY HISTORY: History of myocardial infarction. SOCIAL HISTORY: No history of smoking. REVIEW OF SYSTEMS: Fourteen-point review is negative as mentioned earlier. PHYSICAL EXAM: VITAL SIGNS: Pulse 77, blood pressure 130/60, respirations 18. HEENT: Conjunctivae normal. CARDIAC: S1, S2, RESPIRATION: Clear to auscultation. ABDOMEN: Soft. EXTREMITIES: Right hand, significant swelling and pain of the 2nd and 3rd metacarpophalangeal joints present, severe tenderness and swelling. Homans limited. LABORATORY DATA: Reviewed. ASSESSMENT: 1. Severe pain and swelling of the right and possible acute rheumatoid arthritis exacerbation. 2. History of rheumatoid arthritis with deformities. 3. Degenerative joint disease. 4. History of CVA, TIA. 5. Multiple complex medical issues. RECOMMENDATIONS/DISCUSSION: In this 84-year-old woman, who presented with multiple complex medical issues. I will recommend pain medications, intravenous steroids. Otherwise, I would also recommend resume the home medications once confirmed. We will follow the patient closely. The prognosis is guarded. Further recommendations to follow. See orders for details. MMODL / IJN: [id number] / [facility]
[2024-06-14] MEDS: HEPARIN SODIUM,PORCINE 5,000 UNIT/ML 1 ML VIAL SQ SCH (14:14)
[2024-06-14] MEDS: amLODIPine 5 MG TAB PO SCH (14:14)
[2024-06-14] MEDS: PANTOPRAZOLE 40 MG TABLET PO SCH (14:14)
[2024-06-14] MEDS: methylPREDNISolone SOD SUCCI 125 MG/2 ML VIAL IV SCH (14:14)
[2024-06-14 16:35] LABS: Glucose,Whole Blood 180 mg/dL (70-110)
[2024-06-14] MEDS: THIAMINE 100 MG TAB PO SCH (16:43)
[2024-06-14] MEDS: INSULIN ASPART (NovoLOG) 100 UNIT/ML VIAL SQ SCH (16:43)
[2024-06-14] MEDS: TOPIRAMATE 25 MG TAB PO SCH (21:26)
[2024-06-14] MEDS: DONEPEZIL 10 MG TAB PO SCH (21:27)
[2024-06-14 21:37] LABS: Glucose,Whole Blood 145 mg/dL (70-110)
[2024-06-15 06:28] LABS: Glucose,Whole Blood 144 mg/dL (70-110)
[2024-06-15] MEDS: VENLAFAXINE HCL ER 75 MG CAP PO SCH (08:50)
[2024-06-15 09:13] LABS: HCT 44.9 % (37.2-46.3); HGB 14.6 g/dL (12.0-15.0); MCH 31.1 pg (27.0-32.0); MCHC 32.5 g/dL (32.0-37.0); MCV 95.5 FL (80.0-97.0); Mean Platelet Volume 9.4 FL (9.5-12.2); NRBC Per 100 WBC 0 X 10*3/uL (0.00-0.01); Platelet Count 213 X 10*3/uL (140-440); RDW 12.5 % (11.5-14.5); WBC 6.66 X 10*3/uL (4.50-10.00)
[2024-06-15 10:11] LABS: BUN/Creat Ratio 24.38 Ratio (12.00-20.00); Blood Urea Nitrogen 19.5 mg/dL (9.0-27.0); Calcium 9.2 mg/dL (8.7-10.3); Carbon Dioxide 24.3 mmol/L (21.6-31.8); Chloride 103 mmol/L (96-109); Glucose 166 mg/dL (70-110); Potassium 4.4 mmol/L (3.5-5.5); Sodium 138 mmol/L (135-145)
[2024-06-15 10:42] LABS: Basophils # (A) 0.01 X 10*3/uL (0.00-0.10); Basophils % (A) 0.2 %; Eosinophils # (A) 0 X 10*3/uL (0.04-0.35); Eosinophils % (A) 0 %; Lymphocytes # (A) 0.88 X 10*3/uL (0.90-5.00); Lymphocytes % (A) 13.2 %; Monocytes % (A) 1.5 %; Neutrophils # (A) 5.64 X 10*3/uL (1.80-7.70); Neutrophils % (A) 84.6 %; RBC Morphology Normal (Normal)
[2024-06-15 11:26] LABS: Glucose,Whole Blood 161 mg/dL (70-110)
[2024-06-15] MEDS: FOLIC ACID 1 MG TAB PO SCH (11:46)
[2024-06-15] MEDS: MULTIVITAMINS, THERA 1 EACH TAB PO SCH (11:46)
--- NOTE | 2024-06-15 14:31 | P.PN ---
Subjective Progress Note Date: 06/15/24 This is an 84-year-old female who is admitted for right hand pain. Patient reports improvement in symptoms and states that she has better motion of the right hand today. Patient denies any new complaints today. Objective - Vital Signs Vital signs: Vital Signs Temp 98.1 F 06/15/24 08:00 Pulse 92 06/15/24 08:00 Resp 16 06/15/24 11:01 BP 135/71 06/15/24 08:00 Pulse Ox 93 L 06/15/24 08:00 FiO2 Intake & Output 06/14/24 06/15/24 06/15/24 18:59 06:59 18:59 Intake Total 200 180 Balance 200 180 Weight 62.142 kg Intake: Oral 200 180 Other: Voiding Method Toilet Toilet # Voids 3 5 2 # Bowel Movements 2 - Exam On exam patient is resting comfortably in bed in no acute distress. Patient is alert and oriented 3. Right hand: There is improvement in swelling of the right hand. Patient also has improved range of motion of the right hand. No significant erythema. Mild tenderness to palpation. The right upper extremity is warm and well-perfused. Sensation intact. Neurovascular status and circulatory status are intact. - Labs CBC & Chem 7: 06/15/24 02:50 06/15/24 02:50 Labs: Abnormal Lab Results - Last 24 Hours (Table) 06/14/24 06/14/24 06/15/24 Range/Units 16:33 21:36 02:50 MPV 9.4 L (9.5-12.2) FL Lymphocytes # 0.88 L (0.90-5.00) X 10*3/uL Monocytes # 0.10 L (0.20-1.00) X 10*3/uL Eosinophils # 0 L (0.04-0.35) X 10*3/uL BUN/Creatinine Ratio (12.00-20.00) Ratio Glucose (70-110) mg/dL POC Glucose (mg/dL) 180 H 145 H (70-110) mg/dL 06/15/24 06/15/24 06/15/24 Range/Units 02:50 06:26 11:24 MPV (9.5-12.2) FL Lymphocytes # (0.90-5.00) X 10*3/uL Monocytes # (0.20-1.00) X 10*3/uL Eosinophils # (0.04-0.35) X 10*3/uL BUN/Creatinine Ratio 24.38 H (12.00-20.00) Ratio Glucose 166 H (70-110) mg/dL POC Glucose (mg/dL) 144 H 161 H (70-110) mg/dL Assessment and Plan (1) Rheumatoid arthritis Current Visit: Yes Status: Acute Code(s): M06.9 - RHEUMATOID ARTHRITIS, UNSPECIFIED SNOMED Code(s): 43936935 (2) Right hand pain Current Visit: Yes Status: Acute Code(s): M79.641 - PAIN IN RIGHT HAND SNOMED Code(s): 92398117 Plan: 1. Patient has shown improvement in symptoms. Continue current treatment regimen. There is no surgical intervention planned. Patient may follow-up on an as-needed basis.
--- NOTE | 2024-06-15 16:54 | XR ---
EXAMINATION TYPE: XR chest 1V portable DATE OF EXAM: 06/15/2024 4:37 PM CLINICAL INDICATION: Female, 84 years old with history of chf? baseline; COMPARISON: Chest radiographs from 09/11/2023 TECHNIQUE: XR chest 1V portable Frontal view of the chest. FINDINGS: Lungs/Pleura: There is no evidence of pleural effusion, focal consolidation, or pneumothorax. Pulmonary vascularity: Unremarkable. Heart/mediastinum: Cardiomediastinal silhouette is unremarkable. Musculoskeletal: No acute osseous pathology. IMPRESSION: No acute cardiopulmonary disease/process. [facility], , 06/15/2024 4:52 PM
[2024-06-15 17:14] LABS: Glucose,Whole Blood 151 mg/dL (70-110)
[2024-06-15 17:26] LABS: Appearance,Urine Cloudy (Clear); Bilirubin,Urine Negative (Negative); Blood,Urine Large (Negative); Color,Urine Light Red; Glucose,Urine (UA) Negative (Negative); Ketones,Urine Negative (Negative); Leukocyte Esterase,Urine Small (Negative); Nitrite,Urine Negative (Negative); Protein,Urine 1+ (Negative); RBC,Urine >182 /hpf (0-5); Specific Gravity,Urine 1.019 (1.001-1.035); Urobilinogen,Urine <2.0 mg/dL (<2.0); WBC,Urine 3 /hpf (0-5)
[2024-06-15 20:03] LABS: Glucose,Whole Blood 147 mg/dL (70-110)
[2024-06-15] MEDS: SUMAtriptan succinate 50 MG TAB PO PRN (22:13)
[2024-06-16 02:50] VITALS: RESP 17
--- NOTE | 2024-06-16 04:01 | PN ---
PROGRESS NOTE DATE OF SERVICE: 06/15/2024 SUBJECTIVE: This 84-year-old woman is admitted with significant pain and swelling of the right hand, thought to have rheumatoid arthritis acute exacerbation. Patient also complains of hematuria. Patient had previous hematuria evaluated with urologist. Apparently, the UA is not available at this time. PAST MEDICAL HISTORY: Reviewed. REVIEW OF SYSTEMS: Fourteen-point review is negative. CURRENT MEDICATIONS: Reviewed. PHYSICAL EXAMINATION: VITAL SIGNS: Pulse is 83, blood pressure 137/67, respirations 15. HEENT: Conjunctivae normal. CARDIAC: S1, S2. RESPIRATIONS: Breath sounds diminished at the bases. ABDOMEN: Soft, nontender. LEGS: Right hand is painful, is swollen. LABORATORY DATA: ESR 38. ASSESSMENT: 1. Severe pain and swelling of the right hand, possible acute rheumatoid arthritis exacerbation. 2. Hematuria for evaluation. 3. History of rheumatoid arthritis deformities. 4. Degenerative joint disease. 5. History of cerebrovascular accident, transient ischemic attack. 6. Multiple complex medical issues. RECOMMENDATIONS: Continue current management. Continue current symptomatic treatment. Otherwise at this time, I recommend UA with micro. Continue the IV steroids, pain management, portable chest x-ray as baseline. Repeat labs. Guarded prognosis. Further recommendations to follow. MMODL / IJN: [id number] /
[2024-06-16 06:23] LABS: Glucose,Whole Blood 134 mg/dL (70-110)
[2024-06-16 07:36] VITALS: BP 184/78; PULSE 71; TEMP 97.7
[2024-06-16 08:47] LABS: BUN/Creat Ratio 28.86 Ratio (12.00-20.00); Blood Urea Nitrogen 20.2 mg/dL (9.0-27.0); Chloride 106 mmol/L (96-109); Glucose 164 mg/dL (70-110); Potassium 4.2 mmol/L (3.5-5.5); Sodium 140 mmol/L (135-145)
[2024-06-16 08:50] LABS: Basophils # (A) 0.01 X 10*3/uL (0.00-0.10); Basophils % (A) 0.1 %; Eosinophils # (A) 0 X 10*3/uL (0.04-0.35); Eosinophils % (A) 0 %; HCT 44.6 % (37.2-46.3); HGB 14.2 g/dL (12.0-15.0); Lymphocytes # (A) 0.66 X 10*3/uL (0.90-5.00); Lymphocytes % (A) 6.1 %; MCH 30.7 pg (27.0-32.0); MCHC 31.8 g/dL (32.0-37.0); MCV 96.5 FL (80.0-97.0); Mean Platelet Volume 9.7 FL (9.5-12.2); Monocytes # (A) 0.18 X 10*3/uL (0.20-1.00); Monocytes % (A) 1.7 %; NRBC Per 100 WBC 0 X 10*3/uL (0.00-0.01); Neutrophils # (A) 9.92 X 10*3/uL (1.80-7.70); Neutrophils % (A) 91.6 %; Platelet Count 228 X 10*3/uL (140-440); RBC 4.62 X 10*6/uL (4.10-5.20); RDW 12.6 % (11.5-14.5); WBC 10.82 X 10*3/uL (4.50-10.00)
[2024-06-16] MEDS ORDERED: predniSONE 20 MG TAB PO SCH (10:30)
[2024-06-17] MEDS ORDERED: predniSONE 20 MG TAB PO SCH (09:00)
--- NOTE | 2024-06-18 19:38 | P.DS ---
Providers Date of admission: 06/14/24 07:38 Expected date of discharge: 06/16/24 Attending physician: Jh Garcia Consults: 06/14/24 07:35 Consult Physician Urgent Consulting Provider: Henry Lindo Consult Reason/Comments: right hand pain, reactive arthritis vs gout Do you want consulting provider notified?: Yes Primary care physician: Jh Garcia [facility] Course: Right hand, second knuckle pain with inflammation, acute rheumatoid arthritis Degenerative joint disease Osteopenia Patient admitted with right hand pain with inflammation, imaging completed, reviewed/evaluated by orthopedic surgery. Afebrile, normal WBC. No surgical intervention recommended at this time. Maintained on steroids with significant clinical improvement. Improved mobility. No new complaints. Cleared by orthopedic surgery for discharge. Patient will be discharged home today in a stable condition with guarded prognosis. The impression and plan of care has been dictated as directed. : I performed a history and examination of this patient, discussed the same with the dictator. I agree with the dictator's note ,documented as a scribe. Any additional findings or plans will be noted. Patient Condition at Discharge: Stable Plan - Discharge Summary Discharge Rx Participant: No New Discharge Prescriptions: New predniSONE 10 mg PO DIRECTED #30 tab Acetaminophen Tab [Tylenol] 650 mg PO Q6H #1 tab Continue Baclofen [Lioresal] 10 mg PO BID PRN PRN Reason: Muscle Spasm Dicyclomine [Bentyl] 10 mg PO QID PRN PRN Reason: IBS rOPINIRole HCL [Requip] 1 mg PO QID PRN PRN Reason: Restless Legs rOPINIRole HCL [rOPINIRole HCL ER (XL)] 6 mg PO HS Omeprazole [PriLOSEC] 20 mg PO HS Topiramate [Topamax] 50 mg PO BID amLODIPine [Norvasc] 5 mg PO DAILY Venlafaxine HCl ER [Effexor XR] 75 mg PO DAILY Donepezil HCl [Aricept] 10 mg PO HS ALPRAZolam [Xanax] 0.25 mg PO HS PRN PRN Reason: Anxiety/Insomnia Rizatriptan Odt [Maxalt PERFORATOR] 10 mg PO DAILY PRN PRN Reason: Migraine Headache Discharge Medication List Baclofen [Lioresal] 10 mg PO BID PRN 04/23/20 [History] Dicyclomine [Bentyl] 10 mg PO QID PRN 04/23/20 [History] Venlafaxine HCl ER [Effexor XR] 75 mg PO DAILY 02/07/23 [History] rOPINIRole HCL [Requip] 1 mg PO QID PRN 04/12/23 [History] Donepezil HCl [Aricept] 10 mg PO HS 02/11/24 [History] Omeprazole [PriLOSEC] 20 mg PO HS 02/11/24 [History] rOPINIRole HCL [rOPINIRole HCL ER (XL)] 6 mg PO HS 02/11/24 [History] ALPRAZolam [Xanax] 0.25 mg PO HS PRN 06/14/24 [History] Rizatriptan Odt [Maxalt PERFORATOR] 10 mg PO DAILY PRN 06/14/24 [History] Topiramate [Topamax] 50 mg PO BID 06/14/24 [History] amLODIPine [Norvasc] 5 mg PO DAILY 06/14/24 [History] Acetaminophen Tab [Tylenol] 650 mg PO Q6H #1 tab 06/16/24 [Rx] predniSONE 10 mg PO DIRECTED #30 tab 06/16/24 [Rx] Follow up Appointment(s)/Referral(s): Jh Garcia DO [Primary Care Provider] - 06/23/24 10:00 am Patient Instructions/Handouts: Rheumatoid Arthritis (DC) Discharge Disposition: HOME SELF-CARE
== END 2024-06-16 11:14 | disposition home or self-care (01) ==
LOC: EC 03:31 → 6NMEDSUR 07:38 → 4SSUR 10:48
PROVIDERS: ADMIT Family Medicine; ATTEND Family Medicine
DX: M06.841 Other specified rheumatoid arthritis, right hand (principal); M19.041 Primary osteoarthritis, right hand; M85.841 Other specified disorders of bone density and structure, right hand; K21.9 Gastro-esophageal reflux disease without esophagitis; E78.5 Hyperlipidemia, unspecified; Z85.828 Personal history of other malignant neoplasm of skin; Z86.73 Personal history of transient ischemic attack (TIA), and cerebral infarction without residual deficits; Z79.52 Long term (current) use of systemic steroids; Z79.899 Other long term (current) drug therapy; Z88.1 Allergy status to other antibiotic agents; Z88.6 Allergy status to analgesic agent
CPT/HCPCS: 96376 ×3; 96372 ×2; 96375; 96374; 99284; 36415; 80053; 80048 ×2; 85652; 84550; 85025 ×3; 86140; 81001; 83036; 73130; 71045; G0378 ×4; J2270; J1644 ×2; J7512; J2919 ×3

== ENCOUNTER 2024-07-09 01:10 | Emergency (ER) | payer MEDICARE ==
[2024-07-09 01:27] VITALS: TEMP 97.7
[2024-07-09 02:20] LABS: Basophils % (A) 0 %; Eosinophils # (A) 0.1 k/uL (0-0.7); Eosinophils % (A) 1 %; HCT 44.8 % (34.0-46.0); HGB 14.3 gm/dL (11.4-16.0); Lymphocytes # (A) 1.7 k/uL (1.0-4.8); Lymphocytes % (A) 17 %; MCH 31.3 pg (25.0-35.0); MCV 97.8 fL (80.0-100.0); Mean Platelet Volume 6.9; Monocytes # (A) 0.9 k/uL (0-1.0); Monocytes % (A) 9 %; Neutrophils # (A) 7.1 k/uL (1.3-7.7); Neutrophils % (A) 71 %; Platelet Count 193 k/uL (150-450); RBC 4.58 m/uL (3.80-5.40); RDW 12.8 % (11.5-15.5)
[2024-07-09 02:34] LABS: INR 0.9 (<1.2); Prothrombin Time 10.3 sec (10.0-12.5)
[2024-07-09 02:39] LABS: ALT 36 U/L (4-34); AST 19 U/L (14-36); African American GFR (CKD) 82 (>60 ml/min/1.73 sqM); Albumin 3.4 g/dL (3.5-5.0); Alkaline Phosphatase 93 U/L (38-126); Anion Gap 3 mmol/L; Blood Urea Nitrogen 24 mg/dL (7-17); Calcium 8.6 mg/dL (8.4-10.2); Carbon Dioxide 25 mmol/L (22-30); Chloride 110 mmol/L (98-107); Glucose 150 mg/dL (74-99); Non-African American GFR(CKD) 71 (>60 ml/min/1.73 sqM); Potassium 3.8 mmol/L (3.5-5.1); Sodium 138 mmol/L (137-145); Total Bilirubin 0.8 mg/dL (0.2-1.3)
--- NOTE | 2024-07-09 02:43 | ED ---
General Adult HPI - General Chief complaint: Extremity Injury, Upper Stated complaint: Left arm pain Time Seen by Provider: 07/09/24 01:29 Source: patient, family Mode of arrival: ambulatory Limitations: no limitations - History of Present Illness Initial comments: 84-year-old female presenting with chief complaint of left arm pain. Pain started this evening. Is between the shoulder and the wrist. She denies any injury or trauma. She does admit to some neck pain as well. She recently started receiving steroid injections for right arm pain. Patient does have rheumatoid arthritis, takes no maintenance medication. No numbness or tingling. She has pain with range of motion. She is still able to move the fingers wrist and arm. No discoloration or swelling. No fevers or chills. No chest pain or difficulty breathing. No palpitations. No nausea vomiting or abdominal pain. - Related Data Home Medications Medication Instructions Recorded Confirmed Baclofen [Lioresal] 10 mg PO BID PRN 04/23/20 06/14/24 Dicyclomine [Bentyl] 10 mg PO QID PRN 04/23/20 06/14/24 Venlafaxine HCl ER [Effexor XR] 75 mg PO DAILY 02/07/23 06/14/24 rOPINIRole HCL [Requip] 1 mg PO QID PRN 04/12/23 06/14/24 Donepezil HCl [Aricept] 10 mg PO HS 02/11/24 06/14/24 Omeprazole [PriLOSEC] 20 mg PO HS 02/11/24 06/14/24 rOPINIRole HCL [rOPINIRole HCL ER 6 mg PO HS 02/11/24 06/14/24 (XL)] ALPRAZolam [Xanax] 0.25 mg PO HS PRN 06/14/24 06/14/24 Rizatriptan Odt [Maxalt GAMBLING DEALER] 10 mg PO DAILY PRN 06/14/24 06/14/24 Topiramate [Topamax] 50 mg PO BID 06/14/24 06/14/24 amLODIPine [Norvasc] 5 mg PO DAILY 06/14/24 06/14/24 Previous Rx's Medication Instructions Recorded Acetaminophen Tab [Tylenol] 650 mg PO Q6H #1 tab 06/16/24 predniSONE 10 mg PO DIRECTED #30 tab 06/16/24 Allergies Allergy/AdvReac Type Severity Reaction Status Date / Time cephalexin [From Keflex] Allergy Unknown Verified 07/09/24 01:20 etodolac [From Lodine] Allergy Rash/Hives Verified 07/09/24 01:20 nabumetone [From Relafen] Allergy Rash/Hives Verified 07/09/24 01:20 naproxen [From Naprosyn] Allergy Rash/Hives Verified 07/09/24 01:20 NSAIDS (Non-Steroidal Allergy Rash/Hives Verified 07/09/24 01:20 Anti-Inflamma Review of Systems ROS Statement: Those systems with pertinent positive or pertinent negative responses have been documented in the HPI. ROS Other: All systems not noted in ROS Statement are negative. Past Medical History Past Medical History: Cancer, CVA/TIA, GERD/Reflux, Hyperlipidemia, Osteoarthritis (OA), Pneumonia, Rheumatoid Arthritis (RA) Additional Past Medical History / Comment(s): pancreatitis, U/s and biopsy of pancreas at [facility], anemia, kidney stones/UTIs, skin cancer, migraines, RLS, generalized pain d/t RA/OA, constipation, past ileus, IBS, steriod injections started 1 week ago to back of the neck, History of Any Multi-Drug Resistant Organisms: None Reported Past Surgical History: Breast Surgery, Cholecystectomy, Hernia Repair, Joint Replacement, Orthopedic Surgery Additional Past Surgical History / Comment(s): Rotator cuff (R); Ric Knee Replacement; Panniculectomy, lizzie fundoplication/repair paraesophageal hernia, bilateral legs varicose vein surgery, colonoscopies-normal, bilateral cataract removal, FNA abdominal seroma, cystoscopy/bladder bx/lithotripsy with R ureteral stent, skin cancer removal, bilateral benign breast biopsies, bilateral feet/toe surgeries/4th R toe amp Past Anesthesia/Blood Transfusion Reactions: No Reported Reaction Additional Past Anesthesia/Blood Transfusion Reaction / Comment(s): Pt has received blood after panniculectomy without reaction. Past Psychological History: No Psychological Hx Reported Smoking Status: Never smoker Past Alcohol Use History: None Reported Past Drug Use History: None Reported - Past Family History Mother History Unknown: Yes Family Medical History: Myocardial Infarction ([place]) Additional Family Medical History / Comment(s): Mother at age 69 yrs after having the flu and complicated by a [place]. Father History Unknown: Yes Additional Family Medical History / Comment(s): IBS. Father at age 78yrs. General Exam Limitations: no limitations General appearance: alert, in no apparent distress Head exam: Present: atraumatic, normocephalic, normal inspection Eye exam: Present: normal appearance Neck exam: Present: normal inspection. Absent: meningismus Respiratory exam: Present: normal lung sounds bilaterally. Absent: respiratory distress, wheezes, rales, rhonchi, stridor Cardiovascular Exam: Present: regular rate, normal rhythm, normal heart sounds. Absent: systolic murmur, diastolic murmur, rubs, gallop, clicks Left Shoulder Exam: Present: normal inspection, tenderness. Absent: full ROM, swelling, ecchymosis, erythema Upper Arm exam: Present: normal inspection, tenderness. Absent: full ROM, swelling, erythema Forearm Wrist exam: Present: normal inspection, tenderness. Absent: full ROM, swelling, erythema Neurological exam: Present: alert, oriented X3 Psychiatric exam: Present: normal affect, normal mood Skin exam: Present: warm, dry Course Vital Signs 07/09/24 07/09/24 07/09/24 01:20 04:00 05:02 Temperature 97.7 F Pulse Rate 46 L 68 74 Respiratory 20 18 16 Rate Blood Pressure 133/69 142/63 140/68 O2 Sat by Pulse 98 98 98 Oximetry Medical Decision Making - Medical Decision Making Was pt. sent in by a medical professional or institution (Dr. PA, PASTING MACHINE OFFBEARER, urgent care, hospital, or [facility]...) When possible be specific @ -No Did you speak to anyone other than the patient for history (EMS, parent, family, police, friend...)? What history was obtained from this source @ -No Did you review nursing and triage notes (agree or disagree)? Why? @ -I reviewed and agree with nursing and triage notes Were old charts reviewed (outside hosp., previous admission, EMS record, old EKG, old radiological studies, urgent care reports/EKG's, [facility] records)? Report findings @ -No old charts were reviewed Differential Diagnosis (chest pain, altered mental status, abdominal pain women, abdominal pain men, vaginal bleeding, weakness, fever, dyspnea, syncope, headache, dizziness, GI bleed, back pain, seizure, CVA, palpatations, mental health, musculoskeletal)? @ -Differential Musculoskeletal Muscular strain, contusion, ligament sprain, fracture, arthritis, septic arthritis, bursitis, cellulitis, muscle spasm, nerve compression, DVT, arterial occlusion, herpes zoster, electrolyte abnormality, tumor.... This is not meant to be in all inclusive list EKG interpreted by me (3pts min.). @ -EKG shows sinus rhythm with first-degree AV block. Ventricular rate 63. SC interval 285. QRS 132. QT 422. QTc 429. Right bundle branch block which was present on previous EKG X-rays interpreted by me (1pt min.). @ -Chest x-ray shows no acute process. X-ray of the humerus and forearm shows no acute osseous abnormality CT interpreted by me (1pt min.). @ -None done U/S interpreted by me (1pt. min.). @ -None done What testing was considered but not performed or refused? (CT, X-rays, U/S, labs)? Why? @ -None What meds were considered but not given or refused? Why? @ -None Did you discuss the management of the patient with other professionals (professionals i.e. , PA, PASTING MACHINE OFFBEARER, lab, RT, psych nurse, manager social work, plate filler, teacher, staff submarine warfare officer, correctional casework specialist)? Give summary @ -No Was smoking cessation discussed for >3mins.? @ -No Was critical care preformed (if so, how long)? @ -No Were there social determinants of health that impacted care today? How? (Homelessness, low income, unemployed, alcoholism, drug addiction, transportation, low edu. Level, literacy, decrease access to med. care, [facility], rehab)? @ -No Was there de-escalation of care discussed even if they declined (Discuss DNR or withdrawal of care, Hospice)? DNR status @ -No What co-morbidities impacted this encounter? (DM, HTN, Smoking, COPD, CAD, Cancer, CVA, ARF, Chemo, Hep., AIDS, mental health diagnosis, sleep apnea, mor bid obesity)? @ -None Was patient admitted / discharged? Hospital course, mention meds given and ro little traverse, prescriptions, significant lab abnormalities, going to OR and other pertinent info. @ -84-year-old female presenting with chief complaint of right arm pain. Started this evening. No chest pain or difficulty breathing. Pain is present from the shoulder to the wrist. No injury or trauma. She is neurovascularly intact. No discoloration or swelling. No obvious deformity. Lab work shows no leukocytosis or anemia. EKG shows no acute ischemic findings and troponin is negative. Chest x-ray shows no acute process and x-rays of the humerus and forearm show no acute osseous abnormality. Patient is given pain medication and on reassessment she reports improvement in her pain. Given that the patient has history of rheumatoid arthritis and has recently started receiving steroid injections in her neck for left arm pain I believe that this is more likely the cause of her pain. She is educated on today's findings. Discharged. Follow-up with PCP. Report back to ER with any new or worsening symptoms. Discussed return parameters and answered all questions. Patient conveyed verbal understanding and agreed to the plan. I discussed this case in detail with my attending Dr. Israel Undiagnosed new problem with uncertain prognosis? @ -No Drug Therapy requiring intensive monitoring for toxicity (Heparin, Nitro, Insulin, Cardizem)? @ -No Were any procedures done? @ -No Diagnosis/symptom? @ -Arm pain Acute, or Chronic, or Acute on Chronic? @ -Acute Uncomplicated (without systemic symptoms) or Complicated (systemic symptoms)? @ -Uncomplicated Side effects of treatment? @ -No Exacerbation, Progression, or Severe Exacerbation? @ -No Poses a threat to life or bodily function? How? (Chest pain, [place], [place], pneumonia, PE, COPD, DKA, ARF, appy, cholecystitis, CVA, Diverticulitis, Homicidal, Suicidal, threat to staff... and all critical care pts) @ -Unlikely - Lab Data Result diagrams: 07/09/24 02:09 07/09/24 02:09 Lab Results 07/09/24 07/09/24 07/09/24 Range/Units 02:09 02:09 02:09 WBC 10.0 (3.8-10.6) k/uL RBC 4.58 (3.80-5.40) m/uL Hgb 14.3 (11.4-16.0) gm/dL Hct 44.8 (34.0-46.0) % MCV 97.8 (80.0-100.0) fL MCH 31.3 (25.0-35.0) pg MCHC 32.0 (31.0-37.0) g/dL RDW 12.8 (11.5-15.5) % Plt Count 193 (150-450) k/uL MPV 6.9 Neutrophils % 71 % Lymphocytes % 17 % Monocytes % 9 % Eosinophils % 1 % Basophils % 0 % Neutrophils # 7.1 (1.3-7.7) k/uL Lymphocytes # 1.7 (1.0-4.8) k/uL Monocytes # 0.9 (0-1.0) k/uL Eosinophils # 0.1 (0-0.7) k/uL Basophils # 0.0 (0-0.2) k/uL PT 10.3 (10.0-12.5) sec INR 0.9 (<1.2) APTT 22.0 (22.0-30.0) sec Sodium 138 (137-145) mmol/L Potassium 3.8 (3.5-5.1) mmol/L Chloride 110 H (98-107) mmol/L Carbon Dioxide 25 (22-30) mmol/L Anion Gap 3 mmol/L BUN 24 H (7-17) mg/dL Creatinine 0.78 (0.52-1.04) mg/dL Est GFR (CKD-EPI)AfAm 82 (>60 ml/min/1.73 sqM) Est GFR (CKD-EPI)NonAf 71 (>60 ml/min/1.73 sqM) Glucose 150 H (74-99) mg/dL Calcium 8.6 (8.4-10.2) mg/dL Magnesium 2.0 (1.6-2.3) mg/dL Total Bilirubin 0.8 (0.2-1.3) mg/dL AST 19 (14-36) U/L ALT 36 H (4-34) U/L Alkaline Phosphatase 93 (38-126) U/L Troponin I (0.000-0.034) ng/mL Total Protein 6.0 L (6.3-8.2) g/dL Albumin 3.4 L (3.5-5.0) g/dL 07/09/24 Range/Units 02:09 WBC (3.8-10.6) k/uL RBC (3.80-5.40) m/uL Hgb (11.4-16.0) gm/dL Hct (34.0-46.0) % MCV (80.0-100.0) fL MCH (25.0-35.0) pg MCHC (31.0-37.0) g/dL RDW (11.5-15.5) % Plt Count (150-450) k/uL MPV Neutrophils % % Lymphocytes % % Monocytes % % Eosinophils % % Basophils % % Neutrophils # (1.3-7.7) k/uL Lymphocytes # (1.0-4.8) k/uL Monocytes # (0-1.0) k/uL Eosinophils # (0-0.7) k/uL Basophils # (0-0.2) k/uL PT (10.0-12.5) sec INR (<1.2) APTT (22.0-30.0) sec Sodium (137-145) mmol/L Potassium (3.5-5.1) mmol/L Chloride (98-107) mmol/L Carbon Dioxide (22-30) mmol/L Anion Gap mmol/L BUN (7-17) mg/dL Creatinine (0.52-1.04) mg/dL Est GFR (CKD-EPI)AfAm (>60 ml/min/1.73 sqM) Est GFR (CKD-EPI)NonAf (>60 ml/min/1.73 sqM) Glucose (74-99) mg/dL Calcium (8.4-10.2) mg/dL Magnesium (1.6-2.3) mg/dL Total Bilirubin (0.2-1.3) mg/dL AST (14-36) U/L ALT (4-34) U/L Alkaline Phosphatase (38-126) U/L Troponin I <0.012 (0.000-0.034) ng/mL Total Protein (6.3-8.2) g/dL Albumin (3.5-5.0) g/dL Disposition Clinical Impression: Left arm pain Disposition: HOME SELF-CARE Condition: Good Instructions (If sedation given, give patient instructions): Arm Pain (ED) Additional Instructions: Follow-up with your PCP. Report back to ER with any new or worsening symptoms. Is patient prescribed a controlled substance at d/c from ED?: No Referrals: Jh Garcia DO [Primary Care Provider] - 1-2 days Time of Disposition: 04:40
--- NOTE | 2024-07-09 02:54 | XR ---
EXAM: XR Chest, 2 Views CLINICAL HISTORY: ITS.REASON XR Reason: L arm pain TECHNIQUE: Frontal and lateral views of the chest. COMPARISON: No relevant prior studies available. FINDINGS: Lungs: Unremarkable. No consolidation. Pleural space: Unremarkable. No pneumothorax. Heart: Mild cardiomegaly. Mediastinum: Unremarkable. Normal mediastinal contour. Bones/joints: Unremarkable. No acute fracture. IMPRESSION: No consolidation.
[2024-07-09] MEDS: SODIUM CHLORIDE 0.9% 500 ML 500 ML IV STA (02:55)
[2024-07-09] MEDS: MORPHINE SULFATE 2 MG/ML SYRINGE IVP STA (02:55)
--- NOTE | 2024-07-09 03:57 | XR ---
EXAM: XR Left Forearm, 2 Views CLINICAL HISTORY: ITS.REASON XR Reason: pain TECHNIQUE: Frontal and lateral views of the left forearm. COMPARISON: No relevant prior studies available. FINDINGS: Bones/joints: Diffuse osseous demineralization. No acute fracture or subluxation. Soft tissues: Unremarkable. IMPRESSION: No acute fracture or subluxation.
--- NOTE | 2024-07-09 04:06 | XR ---
EXAM: XR Left Humerus, 2 or More Views CLINICAL HISTORY: ITS.REASON XR Reason: pain TECHNIQUE: Frontal and lateral views of the left humerus. COMPARISON: No relevant prior studies available. FINDINGS: Bones/joints: Diffuse osseous demineralization. Moderate degenerative changes of the acromioclavicular joint. No acute fracture or subluxation. Soft tissues: Unremarkable. IMPRESSION: No acute fracture or subluxation.
[2024-07-09] MEDS: HYDROmorphone 1 MG/ML 1 ML SYRINGE IVP STA (04:19)
[2024-07-09] MEDS: ACET/COD 300 MG/30 MG STARTER PACK 6 TAB BTL PO STA (04:57)
[2024-07-09 05:03] VITALS: BP 140/68; PULSE 74; RESP 16
== END 2024-07-09 05:03 | disposition home or self-care (01) ==
LOC: EC 01:10
CPT/HCPCS: 36415; 71046; 80053; 83735; 84484; 85025; 85610; 85730; 93005; 96361; 96374; 96375; 99284

== ENCOUNTER → 2024-08-19 | Outpatient (CLI) | payer MEDICARE ==
--- NOTE | 2024-08-23 00:16 | BD ---
EXAMINATION TYPE: Axial Bone Density DATE OF EXAM: 08/19/2024 CLINICAL HISTORY: 84 years old Female. ICD-10 CODE: M89.9 DISORDER OF BONE , Additional History: Height: 63 Weight: 144.5 FRAX RISK QUESTIONS: Alcohol (3 or more units per day): no Family History (Parent hip fracture): no Glucocorticoids (More than 3mos): no (Ex: prednisone, prednisolone, methylprednisolone, dexamethasone, and hydrocortisone). History of Fracture in Adulthood: no Secondary Osteoporosis: 1. Type 1 Diabetes: no 2. Hyperthyroidism: no 3. Menopause before 45: yes 4. Malnutrition: no 5. Chronic liver disease: no Rheumatoid Arthritis: yes Current Tobacco Use: no RISK FACTORS HISTORY OF: Surgery to Spine/Hip(right/left)/Wrist (right/left): no EXAM MEASUREMENTS: Bone mineral densitometry was performed using the [employer] KK System. Bone mineral density as measured about the Lumbar spine is: ----- L1-L4(G/cm2): 1.303 T Score Values are as follows: ----- L1: -1.5 ----- L2: 0.5 ----- L3: 3.7 ----- L4: 1.5 ----- L1-L4: 1.0 Z Score Values are as follows: ----- L1: 0.4 ----- L2: 2.4 ----- L3: 5.6 ----- L4: 3.3 ----- L1-L4: 2.9 Bone mineral density has: decreased -9.5 % since study of: 7.3 Bone mineral density about the R hip (g/cm2): 0.764 Bone mineral density about the L hip (g/cm2): 0.748 T Score values are as follows: -----R Neck: -2.2 -----L Neck: -2.5 -----R Total: -1.9 -----L Total: -2.1 Z Score values are as follows: -----R Neck: 0.1 -----L Neck: -0.2 -----R Total: 0.2 -----L Total: 0.1 Bone mineral density has: decreased -32.9 % since study of: 7.3.2005 FRAX%s: The graph provided illustrates a 24.9% chance for a major osteoporotic fx and a 10.0% chance for the hips probability for fx in 10 years time. IMPRESSION: Osteopenia (T Score between -2.5 and -1). There is slightly increased risk of fracture and the patient may be considered for treatment. Re-Screen 2-5 years. NOTE: T-SCORE=SD OF THE YOUNG ADULT MEAN. [facility], , 08/23/2024 12:13 AM
== END | disposition home or self-care (01) ==
LOC: RADBDWWP 13:07
PROVIDERS: ATTEND Family Medicine
DX: M85.89 Other specified disorders of bone density and structure, multiple sites (principal)
CPT/HCPCS: 77080

== ENCOUNTER 2024-09-20 13:47 | Emergency (ER) | payer MEDICARE ==
--- NOTE | 2024-09-20 14:53 | ED ---
Extremity Problem HPI - General Source: patient, RN notes reviewed Mode of arrival: ambulatory Limitations: no limitations - History of Present Illness MD Complaint: extremity pain Onset/Timin -: days(s) <Jason Shankar - Last Filed: 09/20/24 14:51> <Deborah Oates - Last Filed: 09/20/24 21:05> - General Chief complaint: Extremity Problem,Nontraumatic Stated complaint: R hand pain Time Seen by Provider: 09/20/24 14:02 - History of Present Illness Initial comments: This is an 84-year-old female with history of gout presenting with right hand pain (04/19) x 2 days. Patient states she strongly suspect she is having a gout flare with similar symptoms in the past. States she normally receives "Simcee" for her gout flare. Denies other symptoms at this time. (Jason Shankar) 84-year-old female with history of rheumatoid arthritis, osteoarthritis, gout, hyperlipidemia presenting with chief complaint of right hand pain. Mainly across the knuckles. No injury or trauma. States that this feels similar to previous gout flareups. No numbness tingling or weakness. She does have some swelling across the knuckles. No fever or chills. Slight limits to range of motion secondary to pain and swelling. (Deborah Oates) - Related Data Home Medications Medication Instructions Recorded Confirmed Baclofen [Lioresal] 10 mg PO BID PRN 04/23/20 06/14/24 Dicyclomine [Bentyl] 10 mg PO QID PRN 04/23/20 06/14/24 Venlafaxine HCl ER [Effexor XR] 75 mg PO DAILY 02/07/23 06/14/24 rOPINIRole HCL [Requip] 1 mg PO QID PRN 04/12/23 06/14/24 Donepezil HCl [Aricept] 10 mg PO HS 02/11/24 06/14/24 Omeprazole [PriLOSEC] 20 mg PO HS 02/11/24 06/14/24 rOPINIRole HCL [rOPINIRole HCL ER 6 mg PO HS 02/11/24 06/14/24 (XL)] ALPRAZolam [Xanax] 0.25 mg PO HS PRN 06/14/24 06/14/24 Rizatriptan Odt [Maxalt MECHANIC DRIVER] 10 mg PO DAILY PRN 06/14/24 06/14/24 Topiramate [Topamax] 50 mg PO BID 06/14/24 06/14/24 amLODIPine [Norvasc] 5 mg PO DAILY 06/14/24 06/14/24 Previous Rx's Medication Instructions Recorded Acetaminophen Tab [Tylenol] 650 mg PO Q6H #1 tab 06/16/24 predniSONE 10 mg PO DIRECTED #30 tab 06/16/24 predniSONE [Deltasone] 40 mg PO DAILY 4 Days #8 tab 09/20/24 Allergies Allergy/AdvReac Type Severity Reaction Status Date / Time cephalexin [From Keflex] Allergy Unknown Verified 09/20/24 14:17 etodolac [From Lodine] Allergy Rash/Hives Verified 09/20/24 14:17 nabumetone [From Relafen] Allergy Rash/Hives Verified 09/20/24 14:17 naproxen [From Naprosyn] Allergy Rash/Hives Verified 09/20/24 14:17 NSAIDS (Non-Steroidal Allergy Rash/Hives Verified 09/20/24 14:17 Anti-Inflamma Review of Systems ROS Other: All systems not noted in ROS Statement are negative. <Jason Shankar - Last Filed: 09/20/24 14:51> ROS Other: All systems not noted in ROS Statement are negative. <Deborah Oates - Last Filed: 09/20/24 21:05> ROS Statement: Those systems with pertinent positive or pertinent negative responses have been documented in the HPI. Past Medical History Past Medical History: Cancer, CVA/TIA, GERD/Reflux, Hyperlipidemia, Osteoarthritis (OA), Pneumonia, Rheumatoid Arthritis (RA) Additional Past Medical History / Comment(s): pancreatitis, U/s and biopsy of pancreas at [facility], anemia, kidney stones/UTIs, skin cancer, migraines, RLS, g eneralized pain d/t RA/OA, constipation, past ileus, IBS, steriod injections started 1 week ago to back of the neck, History of Any Multi-Drug Resistant Organisms: None Reported Past Surgical History: Breast Surgery, Cholecystectomy, Hernia Repair, Joint Replacement, Orthopedic Surgery Additional Past Surgical History / Comment(s): Rotator cuff (R); Ric Knee Replacement; Panniculectomy, lizzie fundoplication/repair paraesophageal hernia, bilateral legs varicose vein surgery, colonoscopies-normal, bilateral cataract removal, FNA abdominal seroma, cystoscopy/bladder bx/lithotripsy with R ureteral stent, skin cancer removal, bilateral benign breast biopsies, bilateral feet/toe surgeries/4th R toe amp Past Anesthesia/Blood Transfusion Reactions: No Reported Reaction Additional Past Anesthesia/Blood Transfusion Reaction / Comment(s): Pt has received blood after panniculectomy without reaction. Past Psychological History: No Psychological Hx Reported Smoking Status: Never smoker Past Alcohol Use History: None Reported Past Drug Use History: None Reported - Past Family History Mother History Unknown: Yes Family Medical History: Myocardial Infarction ([place]) Additional Family Medical History / Comment(s): Mother at age 69 yrs after having the flu and complicated by a [place]. Father History Unknown: Yes Additional Family Medical History / Comment(s): IBS. Father at age 78yrs. <Jason Shankar - Last Filed: 09/20/24 14:51> General Exam Limitations: no limitations <Jason Shankar - Last Filed: 09/20/24 14:51> Limitations: no limitations General appearance: alert, in no apparent distress Head exam: Present: atraumatic, normocephalic, normal inspection Eye exam: Present: normal appearance, EOMI Neck exam: Present: normal inspection. Absent: meningismus Respiratory exam: Absent: respiratory distress Cardiovascular Exam: Present: regular rate Right Hand Wrist exam: Present: full ROM, tenderness, swelling Vascular: Absent: vascular compromise Neurological exam: Present: alert, oriented X3 Psychiatric exam: Present: normal affect, normal mood Skin exam: Present: warm, dry, normal color <Deborah Oates - Last Filed: 09/20/24 21:05> - General Exam Comments Initial Comments: Visual Physical Exam Vital signs reviewed General: Well-appearing, nontoxic, no acute distress. Head: Normocephalic, atraumatic Eyes: PERRLA, EOMI ENT: Airway patent Chest: Nonlabored breathing Skin: No visual rash, normal skin tone Neuro: Alert and oriented 3 Musculoskeletal: No gross abnormalities (Jason Shankar) Course Vital Signs 09/20/24 09/20/24 09/20/24 14:17 18:50 19:52 Temperature 98.6 F 98.1 F Pulse Rate 66 67 63 Respiratory 18 18 17 Rate Blood Pressure 179/72 189/74 194/77 O2 Sat by Pulse 97 98 100 Oximetry 09/20/24 09/20/24 20:17 20:24 Temperature Pulse Rate 59 L Respiratory 18 Rate Blood Pressure 169/70 O2 Sat by Pulse 95 Oximetry Medical Decision Making <Jason Shankar - Last Filed: 09/20/24 14:51> <Deborah Oates - Last Filed: 09/20/24 21:05> - Medical Decision Making I completed the quick note portion of this chart signed NICOLA Gerardo (Jason Shankar) Was pt. sent in by a medical professional or institution (REINA Arriaza, MAGAZINE SUPERVISOR, urgent care, hospital, or correction...) When possible be specific @ -[No] Did you speak to anyone other than the patient for history (EMS, parent, family, police, friend...)? What history was obtained from this source @ -[No] Did you review nursing and triage notes (agree or disagree)? Why? @ -[I reviewed and agree with nursing and triage notes] Were old charts reviewed (outside hosp., previous admission, EMS record, old EKG, old radiological studies, urgent care reports/EKG's, correction records)? Report findings @ -[No old charts were reviewed] Differential Diagnosis (chest pain, altered mental status, abdominal pain women, abdominal pain men, vaginal bleeding, weakness, fever, dyspnea, syncope, headache, dizziness, GI bleed, back pain, seizure, CVA, palpatations, mental health, musculoskeletal)? @ -Differential Musculoskeletal Muscular strain, contusion, ligament sprain, fracture, arthritis, septic arthritis, bursitis, cellulitis, muscle spasm, nerve compression, DVT, arterial occlusion, herpes zoster, electrolyte abnormality, tumor.... This is not meant to be in all inclusive list EKG interpreted by me (3pts min.). @ -[As above] X-rays interpreted by me (1pt min.). @ -[None done] CT interpreted by me (1pt min.). @ -[None done] U/S interpreted by me (1pt. min.). @ -[None done] What testing was considered but not performed or refused? (CT, X-rays, U/S, labs)? Why? @ -X-ray considered, patient declined stating she has not heard her hand and it feels like previous gout. States she has been there for a long time and just wants to go home What meds were considered but not given or refused? Why? @ -[None] Did you discuss the management of the patient with other professionals (professionals i.e. Dr., PA, MAGAZINE SUPERVISOR, lab, RT, psych nurse, hospice social worker, bottle and glass inspector, teacher, lodge officer, correctional casework specialist)? Give summary @ -[No] Was smoking cessation discussed for >3mins.? @ -[No] Was critical care preformed (if so, how long)? @ -[No] Were there social determinants of health that impacted care today? How? (Homelessness, low income, unemployed, alcoholism, drug addiction, transportation, low edu. Level, literacy, decrease access to med. care, fpc, rehab)? @ -[No] Was there de-escalation of care discussed even if they declined (Discuss DNR or withdrawal of care, Hospice)? DNR status @ -[No] What co-morbidities impacted this encounter? (DM, HTN, Smoking, COPD, CAD, Cancer, CVA, ARF, Chemo, Hep., AIDS, mental health diagnosis, sleep apnea, morbid obesity)? @ -[None] Was patient admitted / discharged? Hospital course, mention meds given and route, prescriptions, significant lab abnormalities, going to OR and other pertinent info. @ -84-year-old female chief complaint of right hand pain. No injury or trauma. There are some swelling across the knuckles. History of gout and feels similar. She also has history of rheumatoid arthritis. She is neurovascularly intact. No evidence of infection. Patient was offered an x-ray, she declines. She was treated in the waiting room with prednisone, colchicine, [place]. States she is feeling much better. She sent a 4-day course of prednisone to her pharmacy. Patient's hypertension has improved without intervention, she will follow-up with her doctor regarding this. Follow-up with PCP. Report back to ER with any new or worsening symptoms. Discussed return parameters and answered all questions. Patient conveyed verbal understanding and agreed to the plan. My attending is Dr. Israel Undiagnosed new problem with uncertain prognosis? @ -[No] Drug Therapy requiring intensive monitoring for toxicity (Heparin, Nitro, Insulin, Cardizem)? @ -[No] Were any procedures done? @ -[No] Diagnosis/symptom? @ -Gout Acute, or Chronic, or Acute on Chronic? @ -Acute Uncomplicated (without systemic symptoms) or Complicated (systemic symptoms)? @ -Uncomplicated Side effects of treatment? @ -[No] Exacerbation, Progression, or Severe Exacerbation? @ -[No] Poses a threat to life or bodily function? How? (Chest pain, [place], [place], pneumonia, PE, COPD, DKA, ARF, appy, cholecystitis, CVA, Diverticulitis, Homicidal, Suicidal, threat to staff... and all critical care pts) @ -Low likelihood (Deborah Oates) Disposition <Jason Shankar - Last Filed: 09/20/24 14:51> Is patient prescribed a controlled substance at d/c from ED?: No Time of Disposition: 19:06 <Deborah Oates - Last Filed: 09/20/24 21:05> Clinical Impression: Gout Disposition: HOME SELF-CARE Condition: Good Instructions (If sedation given, give patient instructions): Gout (ED), Rheumatoid Arthritis (ED) Additional Instructions: Follow-up with your PCP. Report back to ER with any new or worsening symptoms. Take medication as prescribed. Prescriptions: predniSONE [Deltasone] 40 mg PO DAILY 4 Days #8 tab Referrals: Jh Garcia DO [Primary Care Provider] - 1-2 days
[2024-09-20] MEDS: predniSONE 20 MG TAB PO STA (17:07)
[2024-09-20] MEDS: COLCHICINE 0.6 MG EACH PO STA (17:07)
[2024-09-20] MEDS: HYDROcodone/APAP 7.5-325MG 1 EACH TAB PO ONE (17:07)
[2024-09-20 18:53] VITALS: TEMP 98.1
[2024-09-20 20:18] VITALS: BP 169/70
[2024-09-20] MEDS: hydrALAZINE HCL 20 MG/ML 1 ML VIAL IVP STA (20:19)
[2024-09-20 20:26] VITALS: PULSE 59; RESP 18
== END 2024-09-20 20:26 | disposition home or self-care (01) ==
LOC: EC 13:47
DX: M10.9 Gout, unspecified (principal); Z88.1 Allergy status to other antibiotic agents; Z88.6 Allergy status to analgesic agent; Z88.8 Allergy status to other drugs, medicaments and biological substances; Z86.73 Personal history of transient ischemic attack (TIA), and cerebral infarction without residual deficits
CPT/HCPCS: 99283; J7512

== ENCOUNTER 2024-09-22 06:21 | Emergency (ER) | payer MEDICARE ==
[2024-09-22] MEDS: methylPREDNISolone SOD SUCCI 125 MG/2 ML VIAL IV STA (06:58)
[2024-09-22] MEDS: HYDROmorphone 0.5 MG/0.5 ML SYRINGE IVP STA ×2 (07:00→07:46)
[2024-09-22 07:04] LABS: Basophils % (A) 0 %; Eosinophils # (A) 0.1 k/uL (0-0.7); Eosinophils % (A) 1 %; HCT 42.8 % (34.0-46.0); HGB 13.7 gm/dL (11.4-16.0); Lymphocytes # (A) 1.5 k/uL (1.0-4.8); Lymphocytes % (A) 14 %; MCH 31.3 pg (25.0-35.0); MCV 97.5 fL (80.0-100.0); Monocytes # (A) 0.8 k/uL (0-1.0); Monocytes % (A) 7 %; Neutrophils % (A) 75 %; Platelet Count 195 k/uL (150-450); RBC 4.39 m/uL (3.80-5.40); RDW 12.3 % (11.5-15.5); WBC 10.6 k/uL (3.8-10.6)
--- NOTE | 2024-09-22 07:13 | ED ---
Recheck HPI - General Chief Complaint: Recheck/Abnormal Lab/Rx Stated Complaint: Gout in hands Time Seen by Provider: 09/22/24 06:35 Source: patient, RN notes reviewed Mode of arrival: wheelchair Limitations: no limitations - History of Present Illness Initial Comments: 84-year-old female presents emerged part chief complaint of bilateral hand, wrist pain, redness and swelling. Patient was seen here few days ago for similar reasons. She states she did feel slightly improved went home but states she did not slate picker her prescription for her prednisone. Patient does have a history of rheumatoid arthritis and gout states it feels like prior gout. P atient denies any other associated symptoms no fever. - Related Data Home Medications Medication Instructions Recorded Confirmed Baclofen [Lioresal] 10 mg PO BID PRN 04/23/20 06/14/24 Dicyclomine [Bentyl] 10 mg PO QID PRN 04/23/20 06/14/24 Venlafaxine HCl ER [Effexor XR] 75 mg PO DAILY 02/07/23 06/14/24 rOPINIRole HCL [Requip] 1 mg PO QID PRN 04/12/23 06/14/24 Donepezil HCl [Aricept] 10 mg PO HS 02/11/24 06/14/24 Omeprazole [PriLOSEC] 20 mg PO HS 02/11/24 06/14/24 rOPINIRole HCL [rOPINIRole HCL ER 6 mg PO HS 02/11/24 06/14/24 (XL)] ALPRAZolam [Xanax] 0.25 mg PO HS PRN 06/14/24 06/14/24 Rizatriptan Odt [Maxalt PRINTING ESTIMATOR] 10 mg PO DAILY PRN 06/14/24 06/14/24 Topiramate [Topamax] 50 mg PO BID 06/14/24 06/14/24 amLODIPine [Norvasc] 5 mg PO DAILY 06/14/24 06/14/24 Previous Rx's Medication Instructions Recorded Acetaminophen Tab [Tylenol] 650 mg PO Q6H #1 tab 06/16/24 predniSONE 10 mg PO DIRECTED #30 tab 06/16/24 predniSONE [Deltasone] 40 mg PO DAILY 4 Days #8 tab 09/20/24 HYDROcodone/APAP 5-325MG [[place] 5] 1 each PO Q6HR PRN #12 tab 09/22/24 predniSONE 50 mg PO DAILY #5 tab 09/22/24 Allergies Allergy/AdvReac Type Severity Reaction Status Date / Time cephalexin [From Keflex] Allergy Unknown Verified 09/22/24 06:23 etodolac [From Lodine] Allergy Rash/Hives Verified 09/22/24 06:23 nabumetone [From Relafen] Allergy Rash/Hives Verified 09/22/24 06:23 naproxen [From Naprosyn] Allergy Rash/Hives Verified 09/22/24 06:23 NSAIDS (Non-Steroidal Allergy Rash/Hives Verified 09/22/24 06:23 Anti-Inflamma Review of Systems ROS Statement: Those systems with pertinent positive or pertinent negative responses have been documented in the HPI. ROS Other: All systems not noted in ROS Statement are negative. Past Medical History Past Medical History: Cancer, CVA/TIA, GERD/Reflux, Hyperlipidemia, Osteoarthritis (OA), Pneumonia, Rheumatoid Arthritis (RA) Additional Past Medical History / Comment(s): pancreatitis, U/s and biopsy of pancreas at [facility], anemia, kidney stones/UTIs, skin cancer, migraines, RLS, g eneralized pain d/t RA/OA, constipation, past ileus, IBS, steriod injections started 1 week ago to back of the neck, History of Any Multi-Drug Resistant Organisms: None Reported Past Surgical History: Breast Surgery, Cholecystectomy, Hernia Repair, Joint Replacement, Orthopedic Surgery Additional Past Surgical History / Comment(s): Rotator cuff (R); Ric Knee Replacement; Panniculectomy, lizzie fundoplication/repair paraesophageal hernia, bilateral legs varicose vein surgery, colonoscopies-normal, bilateral cataract removal, FNA abdominal seroma, cystoscopy/bladder bx/lithotripsy with R ureteral stent, skin cancer removal, bilateral benign breast biopsies, bilateral feet/toe surgeries/4th R toe amp Past Anesthesia/Blood Transfusion Reactions: No Reported Reaction Additional Past Anesthesia/Blood Transfusion Reaction / Comment(s): Pt has received blood after panniculectomy without reaction. Past Psychological History: No Psychological Hx Reported Smoking Status: Never smoker Past Alcohol Use History: None Reported Past Drug Use History: None Reported - Past Family History Mother History Unknown: Yes Family Medical History: Myocardial Infarction ([place]) Additional Family Medical History / Comment(s): Mother at age 69 yrs after having the flu and complicated by a [place]. Father History Unknown: Yes Additional Family Medical History / Comment(s): IBS. Father at age 78yrs. General Exam Limitations: no limitations General appearance: alert, in no apparent distress Head exam: Present: atraumatic, normocephalic, normal inspection Eye exam: Present: normal appearance, PERRL, EOMI. Absent: scleral icterus, conjunctival injection, periorbital swelling ENT exam: Present: normal exam, normal oropharynx, mucous membranes moist Neck exam: Present: normal inspection, full ROM. Absent: tenderness, meningismus, lymphadenopathy Respiratory exam: Present: normal lung sounds bilaterally. Absent: respiratory distress, wheezes, rales, rhonchi, stridor Cardiovascular Exam: Present: regular rate, normal rhythm, normal heart sounds. Absent: systolic murmur, diastolic murmur, rubs, gallop, clicks Extremities exam: Present: other (Right wrist there is significant swelling, erythema noted, left hand swelling erythema by the third and fourth MCP region) Neurological exam: Present: alert, oriented X3 Skin exam: Present: warm, dry, intact, normal color. Absent: rash Course Vital Signs 09/22/24 09/22/24 06:23 07:46 Temperature 97.7 F 98.1 F Pulse Rate 63 73 Respiratory 17 18 Rate Blood Pressure 161/63 148/60 O2 Sat by Pulse 98 97 Oximetry Medical Decision Making - Medical Decision Making Was pt. sent in by a medical professional or institution (, PA, CLINICAL RN, urgent care, hospital, or fci...) When possible be specific @ -No Did you speak to anyone other than the patient for history (EMS, parent, family, police, friend...)? What history was obtained from this source @ -No Did you review nursing and triage notes (agree or disagree)? Why? @ -I reviewed and agree with nursing and triage notes Were old charts reviewed (outside hosp., previous admission, EMS record, old EKG, old radiological studies, urgent care reports/EKG's, fci records)? Report findings @ -No old charts were reviewed Differential Diagnosis (chest pain, altered mental status, abdominal pain women, abdominal pain men, vaginal bleeding, weakness, fever, dyspnea, syncope, headache, dizziness, GI bleed, back pain, seizure, CVA, palpatations, mental health, musculoskeletal)? @ -Gout, rheumatoid arthritis EKG interpreted by me (3pts min.). @ -None X-rays interpreted by me (1pt min.). @ -None done CT interpreted by me (1pt min.). @ -None done U/S interpreted by me (1pt. min.). @ -None done What testing was considered but not performed or refused? (CT, X-rays, U/S, labs)? Why? @ -None What meds were considered but not given or refused? Why? @ -None Did you discuss the management of the patient with other professionals (professionals i.e. DrDomenico, PA, CLINICAL RN, lab, RT, psych nurse, social media director, power line installer, teacher, lodge officer, vocational case manager)? Give summary @ -No Was smoking cessation discussed for >3mins.? @ -No Was critical care preformed (if so, how long)? @ -No Were there social determinants of health that impacted care today? How? (Homelessness, low income, unemployed, alcoholism, drug addiction, transportation, low edu. Level, literacy, decrease access to med. care, retirement, rehab)? @ -No Was there de-escalation of care discussed even if they declined (Discuss DNR or withdrawal of care, Hospice)? DNR status @ -No What co-morbidities impacted this encounter? (DM, HTN, Smoking, COPD, CAD, Cancer, CVA, ARF, Chemo, Hep., AIDS, mental health diagnosis, sleep apnea, morbid obesity)? @ -Rheumatoid arthritis, gout Was patient admitted / discharged? Hospital course, mention meds given and route, prescriptions, significant lab abnormalities, going to OR and other pertinent info. @ -Discharge patient presented for bilateral hand and wrist discomfort. Patient does have a history of gout symptoms are consistent with gout. Patient discharged on prednisone as she was priorly discharged and analgesics. Undiagnosed new problem with uncertain prognosis? @ -No Drug Therapy requiring intensive monitoring for toxicity (Heparin, Nitro, Insulin, Cardizem)? @ -No Were any procedures done? @ -No Diagnosis/symptom? @ -Gout Acute, or Chronic, or Acute on Chronic? @ -Acute Uncomplicated (without systemic symptoms) or Complicated (systemic symptoms)? @ -Uncomplicated Side effects of treatment? @ -No Exacerbation, Progression, or Severe Exacerbation? @ -No Poses a threat to life or bodily function? How? (Chest pain, [place], [place], pneumonia, PE, COPD, DKA, ARF, appy, cholecystitis, CVA, Diverticulitis, Homicidal, Suicidal, threat to staff... and all critical care pts) @ -No - Lab Data Result diagrams: 09/22/24 06:56 09/22/24 06:56 Lab Results 09/22/24 09/22/24 Range/Units 06:56 06:56 WBC 10.6 (3.8-10.6) k/uL RBC 4.39 (3.80-5.40) m/uL Hgb 13.7 (11.4-16.0) gm/dL Hct 42.8 (34.0-46.0) % MCV 97.5 (80.0-100.0) fL MCH 31.3 (25.0-35.0) pg MCHC 32.0 (31.0-37.0) g/dL RDW 12.3 (11.5-15.5) % Plt Count 195 (150-450) k/uL MPV 7.0 Neutrophils % 75 % Lymphocytes % 14 % Monocytes % 7 % Eosinophils % 1 % Basophils % 0 % Neutrophils # 8.0 H (1.3-7.7) k/uL Lymphocytes # 1.5 (1.0-4.8) k/uL Monocytes # 0.8 (0-1.0) k/uL Eosinophils # 0.1 (0-0.7) k/uL Basophils # 0.0 (0-0.2) k/uL Sodium 139 (137-145) mmol/L Potassium 4.0 (3.5-5.1) mmol/L Chloride 106 (98-107) mmol/L Carbon Dioxide 27 (22-30) mmol/L Anion Gap 6 mmol/L BUN 34 H (7-17) mg/dL Creatinine 0.93 (0.52-1.04) mg/dL Est GFR (CKD-EPI)AfAm 66 (>60 ml/min/1.73 sqM) Est GFR (CKD-EPI)NonAf 57 (>60 ml/min/1.73 sqM) Glucose 124 H (74-99) mg/dL Uric Acid 4.0 (3.7-7.4) mg/dL Calcium 9.9 (8.4-10.2) mg/dL Total Bilirubin 0.7 (0.2-1.3) mg/dL AST 18 (14-36) U/L ALT 15 (4-34) U/L Alkaline Phosphatase 80 (38-126) U/L Total Protein 6.2 L (6.3-8.2) g/dL Albumin 3.6 (3.5-5.0) g/dL Disposition Clinical Impression: Gout, Rheumatoid arthritis Disposition: HOME SELF-CARE Condition: Stable Instructions (If sedation given, give patient instructions): Gout (ED), Low Purine Diet (ED), Rheumatoid Arthritis (ED) Additional Instructions: Please return to the Emergency Department if symptoms worsen or any other concerns. Prescriptions: HYDROcodone/APAP 5-325MG [[place] 5] 1 each PO Q6HR PRN #12 tab PRN Reason: Pain predniSONE 50 mg PO DAILY #5 tab Is patient prescribed a controlled substance at d/c from ED?: Yes When asked, does pt state using other controlled substances?: No If prescribed controlled substance>3 days was MAPS reviewed?: Prescribed <3 Days If opioid is for acute pain is fill amount 7 days or less?: Yes If Rx opioid, was Start Talking consent form obtained?: Yes Referrals: Jh Garcia DO [Primary Care Provider] - 1-2 days Time of Disposition: 08:13
[2024-09-22 07:14] LABS: ALT 15 U/L (4-34); AST 18 U/L (14-36); African American GFR (CKD) 66 (>60 ml/min/1.73 sqM); Albumin 3.6 g/dL (3.5-5.0); Alkaline Phosphatase 80 U/L (38-126); Anion Gap 6 mmol/L; Blood Urea Nitrogen 34 mg/dL (7-17); Calcium 9.9 mg/dL (8.4-10.2); Carbon Dioxide 27 mmol/L (22-30); Chloride 106 mmol/L (98-107); Glucose 124 mg/dL (74-99); Non-African American GFR(CKD) 57 (>60 ml/min/1.73 sqM); Sodium 139 mmol/L (137-145); Total Bilirubin 0.7 mg/dL (0.2-1.3); Total Protein 6.2 g/dL (6.3-8.2)
[2024-09-22] MEDS: COLCHICINE 0.6 MG EACH PO STA ×2 (07:16→08:17)
[2024-09-22 07:47] VITALS: RESP 18; TEMP 98.1
[2024-09-22 08:23] VITALS: BP 136/79; PULSE 75
== END 2024-09-22 08:51 | disposition home or self-care (01) ==
LOC: EC 06:21
DX: M10.9 Gout, unspecified (principal); M06.9 Rheumatoid arthritis, unspecified; Z88.1 Allergy status to other antibiotic agents; Z88.6 Allergy status to analgesic agent; Z88.8 Allergy status to other drugs, medicaments and biological substances; Z86.73 Personal history of transient ischemic attack (TIA), and cerebral infarction without residual deficits
CPT/HCPCS: 36415; 80053; 84550; 85025; 99284; 96374; 96375; 96376; J1171; J2919

== ENCOUNTER 2024-10-01 05:04 | Emergency (ER) | payer MEDICARE ==
--- NOTE | 2024-10-01 05:42 | ED ---
General Adult HPI - General Chief complaint: Recheck/Abnormal Lab/Rx Stated complaint: Pain Time Seen by Provider: 10/01/24 05:17 Source: patient Mode of arrival: wheelchair Limitations: no limitations - History of Present Illness Initial comments: Patient is 84-year-old female the past medical history rheumatoid arthritis presenting today for generalized arthralgias. Patient states that feels like prior RA flare. Has been ongoing for 1 day. Has been taking Tylenol at home without relief. Denies new injuries/falls. She denies fevers, nausea, vo miting, chest pain, shortness of breath, abdominal pain, nausea, vomiting diarrhea, skin changes, cough, congestion, sore throat. Is allergic to NSAIDS. - Related Data Home Medications Medication Instructions Recorded Confirmed Baclofen [Lioresal] 10 mg PO BID PRN 04/23/20 06/14/24 Dicyclomine [Bentyl] 10 mg PO QID PRN 04/23/20 06/14/24 Venlafaxine HCl ER [Effexor XR] 75 mg PO DAILY 02/07/23 06/14/24 rOPINIRole HCL [Requip] 1 mg PO QID PRN 04/12/23 06/14/24 Donepezil HCl [Aricept] 10 mg PO HS 02/11/24 06/14/24 Omeprazole [PriLOSEC] 20 mg PO HS 02/11/24 06/14/24 rOPINIRole HCL [rOPINIRole HCL ER 6 mg PO HS 02/11/24 06/14/24 (XL)] ALPRAZolam [Xanax] 0.25 mg PO HS PRN 06/14/24 06/14/24 Rizatriptan Odt [Maxalt VOCATIONAL REHABILITATION SUPERVISOR] 10 mg PO DAILY PRN 06/14/24 06/14/24 Topiramate [Topamax] 50 mg PO BID 06/14/24 06/14/24 amLODIPine [Norvasc] 5 mg PO DAILY 06/14/24 06/14/24 Previous Rx's Medication Instructions Recorded Acetaminophen Tab [Tylenol] 650 mg PO Q6H #1 tab 06/16/24 predniSONE 10 mg PO DIRECTED #30 tab 06/16/24 predniSONE [Deltasone] 40 mg PO DAILY 4 Days #8 tab 09/20/24 HYDROcodone/APAP 5-325MG [Ridge 5] 1 each PO Q6HR PRN #12 tab 09/22/24 predniSONE 50 mg PO DAILY #5 tab 09/22/24 HYDROcodone/APAP 5-325MG [Ridge 1 tab PO Q8HR PRN 3 Days #12 tab 10/01/24 5-325] predniSONE 50 mg PO DAILY 5 Days #5 tab 10/01/24 Allergies Allergy/AdvReac Type Severity Reaction Status Date / Time cephalexin [From Keflex] Allergy Unknown Verified 10/01/24 05:06 etodolac [From Lodine] Allergy Rash/Hives Verified 10/01/24 05:06 nabumetone [From Relafen] Allergy Rash/Hives Verified 10/01/24 05:06 naproxen [From Naprosyn] Allergy Rash/Hives Verified 10/01/24 05:06 NSAIDS (Non-Steroidal Allergy Rash/Hives Verified 10/01/24 05:06 Anti-Inflamma Review of Systems ROS Statement: Those systems with pertinent positive or pertinent negative responses have been documented in the HPI. ROS Other: All systems not noted in ROS Statement are negative. Past Medical History Past Medical History: Cancer, CVA/TIA, GERD/Reflux, Hyperlipidemia, Osteoarthritis (OA), Pneumonia, Rheumatoid Arthritis (RA) Additional Past Medical History / Comment(s): pancreatitis, U/s and biopsy of pancreas at [facility], anemia, kidney stones/UTIs, skin cancer, migraines, RLS, generalized pain d/t RA/OA, constipation, past ileus, IBS, steriod injections started 1 week ago to back of the neck, History of Any Multi-Drug Resistant Organisms: None Reported Past Surgical History: Breast Surgery, Cholecystectomy, Hernia Repair, Joint Replacement, Orthopedic Surgery Additional Past Surgical History / Comment(s): Rotator cuff (R); Ric Knee Replacement; Panniculectomy, lizzie fundoplication/repair paraesophageal hernia, bilateral legs varicose vein surgery, colonoscopies-normal, bilateral cataract removal, FNA abdominal seroma, cystoscopy/bladder bx/lithotripsy with R ureteral stent, skin cancer removal, bilateral benign breast biopsies, bilateral feet/toe surgeries/4th R toe amp Past Anesthesia/Blood Transfusion Reactions: No Reported Reaction Additional Past Anesthesia/Blood Transfusion Reaction / Comment(s): Pt has received blood after panniculectomy without reaction. Past Psychological History: No Psychological Hx Reported Smoking Status: Never smoker Past Alcohol Use History: None Reported Past Drug Use History: None Reported - Past Family History Mother History Unknown: Yes Family Medical History: Myocardial Infarction (UT) Additional Family Medical History / Comment(s): Mother at age 69 yrs after having the flu and complicated by a UT. Father History Unknown: Yes Additional Family Medical History / Comment(s): IBS. Father at age 78yrs. General Exam - General Exam Comments Initial Comments: PE: CONSTITUTIONAL: [no apparent distress, well appearing] SKIN: [warm, dry, no jaundice, hives or petechiae, no erythema overlying jonits] EYES:[ pupils are equally round, extraocular movements intact without nystagmus, clear conjunctiva, non-icteric sclera] HENT: [normocephalic, atraumatic, moist mucus membranes, oropharynx clear without exudates] NECK: , [Full range of motion, normal appearance] PULMONARY: [clear to auscultation without wheezes, rhonchi, or rales, normal excursion, no accessory muscle use and no stridor] CARDIOVASCULAR:[ regular rate, rhythm, normal S1 and S2. No appreciated murmurs, rubs or gallops. Extremities well perfused, No lower extremity edema] GASTROINTESTINAL: [soft, active bowel sounds throughout, non-tender, non-diste nded, no palpable masses, no rebound or guarding. No hepatosplenomegaly] MUSCULOSKELETAL: [Extremities are atraumatic and have no gross deformity, no edema, redness, or warmth. Knees are mildly equally swollen bilaterally w/o overlying warmth or erythma] NEUROLOGIC: [_a/o x 3, GCS 15, normal mentation and speech. Moves all extremities x 4 without motor or sensory deficit] PSYCHIATRIC:[ _normal mood and affect, thought process is clear and linear] Limitations: no limitations Course Vital Signs 10/01/24 10/01/24 05:06 07:19 Temperature 97.6 F 97.7 F Pulse Rate 73 81 Respiratory 18 19 Rate Blood Pressure 159/68 128/71 O2 Sat by Pulse 98 98 Oximetry Medical Decision Making - Medical Decision Making Was pt. sent in by a medical professional or institution (, PA, ELECTROENCEPHALOGRAPH TECHNOLOGIST, urgent care, hospital, or [facility]...) When possible be specific @ -No Did you speak to anyone other than the patient for history (EMS, parent, family, police, friend...)? What history was obtained from this source @ -No Did you review nursing and triage notes (agree or disagree)? Why? @ -I reviewed nursing and triage notes Were old charts reviewed (outside hosp., previous admission, EMS record, old EKG, old radiological studies, urgent care reports/EKG's, [facility] records)? Report findings @ -Medical records reviewed- pt recently presented with similar symptoms, discharged home with steroids and short course norco Differential Diagnosis (chest pain, altered mental status, abdominal pain women, abdominal pain men, vaginal bleeding, weakness, fever, dyspnea, syncope, headache, dizziness, GI bleed, back pain, seizure, CVA, palpatations, mental health, musculoskeletal)? Differential diagnosis remains broad however top considerations including RA flair, viral infection, septic arthritis, bursitis this is not an all inclusive list EKG interpreted by me (3pts min.). @ -As above X-rays interpreted by me (1pt min.). @ -None done CT interpreted by me (1pt min.). @ -None done U/S interpreted by me (1pt. min.). @ -None done What testing was considered but not performed or refused? (CT, X-rays, U/S, labs)? Why? @ -None What meds were considered but not given or refused? Why? Considered Toradol however patient allergic to NSAIDs Did you discuss the management of the patient with other professionals (professionals i.e. , PA, ELECTROENCEPHALOGRAPH TECHNOLOGIST, lab, RT, psych nurse, public health social worker, engine installer, teacher, corporate officer, shoe parts caser)? Give summary @ -No Was smoking cessation discussed for >3mins.? @ -No Was critical care preformed (if so, how long)? @ -No Were there social determinants of health that impacted care today? How? (Homelessness, low income, unemployed, alcoholism, drug addiction, transportation, low edu. Level, literacy, decrease access to med. care, [place] [facility], rehab)? @ -No Was there de-escalation of care discussed even if they declined (Discuss DNR or withdrawal of care, Hospice)? @ -No What co-morbidities impacted this encounter? (DM, HTN, Smoking, COPD, CAD, Cancer, CVA, ARF, Chemo, Hep., AIDS, mental health diagnosis, sleep apnea, morbid obesity)? @RA Was patient admitted / discharged? Hospital course, mention meds given and route, prescriptions, significant lab abnormalities, going to OR and other pertinent info. @ -Discharged- Pt is a pleasant 84-year-old female history of rheumatoid arthritis presenting today for generalized joint pain, states similar to prior RA flares. Pt hypertensive on arrival additional vitals wnl, patient afebrile. On my assessment patient is well-appearing, awake alert and pleasant. She is nontoxic-appearing. Knees are mildly swollen bilaterally, no erythema or warmth of visualized joints. Exam is not consistent with septic arthritis. Discussed with patient obtaining viral swabs, administering steroids And as patient is unable to receive NSAIDs due to noted allergy. Patient agreeable plan of care. On reassessment patient endorsed improvement in pain. Discussed discharge home with prescription for Ridge and steroids. I directed the patient to follow-up with her organisational psychologist and PCP regarding this visit. Patient agreeable with plan of care. In my medical judgment there is currently no evidence of an immediate life- threatening or surgical condition. Discharge is therefore indicated at this time. Discharge treatment instructions, follow up instructions, and appropriate emergency department return precautions were discussed with the patient and/or medical decision maker. Patient and/or medical decision maker expressed understanding of and agreed with the treatment plan, follow up instructions, and emergency department return precaution. All patient's and/or medical decision maker's questions were answered. Undiagnosed new problem with uncertain prognosis? @ -No Drug Therapy requiring intensive monitoring for toxicity (Heparin, Nitro, Insulin, Cardizem)? @ -No Were any procedures done? @ -No Diagnosis/symptom? Rheumatoid arthritis flare Acute, or Chronic, or Acute on Chronic? @Acute Uncomplicated (without systemic symptoms) or Complicated (systemic symptoms)? Uncomplicated Side effects of treatment? @ -No Exacerbation, Progression, or Severe Exacerbation? Exacerbation Poses a threat to life or bodily function? How? (Chest pain, [place], [place], pneumonia, PE, COPD, DKA, ARF, appy, cholecystitis, CVA, Diverticulitis, Homicidal, Suicidal, threat to staff... and all critical care pts) @ -No - Lab Data Lab Results 10/01/24 Range/Units 05:31 Influenza Type A (PCR) Not Detected (Not Detectd) Influenza Type B (PCR) Not Detected (Not Detectd) RSV (PCR) Not Detected (Not Detectd) SARS-CoV-2 (PCR) Not Detected (Not Detectd) Disposition Clinical Impression: Rheumatoid arthritis flare Disposition: HOME SELF-CARE Condition: Stable Instructions (If sedation given, give patient instructions): Rheumatoid Arthritis (ED) Additional Instructions: Every disease is a spectrum and a small chance still exists that a serious condition could develop, for this reason, please monitor yourself closely for new, changing or worsening symptoms, symptoms that do not improve in 48 hours, redness and swelling or a joint, fever, inability to tolerate/keep down fluids or your medications, inability to follow up with outpatient providers as instructed and should you experience these symptoms or should you have any further concerns for your wellbeing please return to the ED or call 911 immediately. Please follow up with your organisational psychologist JENNIE regarding today's visit. PLEASE call your primary care physician as soon as possible to arrange / discuss plan for followup appointment. Appointment in the next 1-3 days is strongly encouraged if possible. PLEASE let us know here before you leave if there is anything further we can do to be of any assistance. Take care and feel Better! Prescriptions: HYDROcodone/APAP 5-325MG [Ridge 5-325] 1 tab PO Q8HR PRN 3 Days #12 tab PRN Reason: Analgesia predniSONE 50 mg PO DAILY 5 Days #5 tab Is patient prescribed a controlled substance at d/c from ED?: No If prescribed controlled substance>3 days was MAPS reviewed?: Prescribed <3 Days (prescribed 3 days, MAPS reviewd) If opioid is for acute pain is fill amount 7 days or less?: Yes Referrals: Jh Garcia DO [Primary Care Provider] - 1-2 days
[2024-10-01] MEDS: HYDROcodone/APAP 10-325MG 1 EACH TAB PO ONE (05:46)
[2024-10-01] MEDS: predniSONE 20 MG TAB PO STA (05:47)
[2024-10-01 06:48] LABS: Influenza A Not Detected (Not Detectd); Influenza B Not Detected (Not Detectd); RSV Not Detected (Not Detectd)
[2024-10-01 07:21] VITALS: BP 128/71; PULSE 81; RESP 19; TEMP 97.7
== END 2024-10-01 07:20 | disposition home or self-care (01) ==
LOC: EC 05:04
DX: M06.9 Rheumatoid arthritis, unspecified (principal); Z88.1 Allergy status to other antibiotic agents; Z88.6 Allergy status to analgesic agent; Z88.8 Allergy status to other drugs, medicaments and biological substances; Z86.73 Personal history of transient ischemic attack (TIA), and cerebral infarction without residual deficits; Z11.52 Encounter for screening for COVID-19
CPT/HCPCS: 99284; 87636; J7512

== ENCOUNTER 2024-11-04 05:39 | Emergency (ER) | payer MEDICARE ==
--- NOTE | 2024-11-04 06:01 | ED ---
Weakness HPI - General Chief complaint: Weakness Stated complaint: Confusion,pain Time Seen by Provider: 11/04/24 05:52 Source: patient Mode of arrival: wheelchair - History of Present Illness Initial comments: Patient is an 84-year-old woman with history of rheumatoid arthritis who is here to have evaluation of bodyaches and generalized weakness. The patient had been visiting her in the hospital on the fourth floor and had told staff that she was feeling very weak and she was having pain throughout her shoulders hips and extremities. She states that it feels different than her rheumatoid and that it is less in the joints and more in the muscles. The patient has not noted fever or chills. No cough or dyspnea. Patient denies chest pain, abdominal pain, nausea, vomiting, diarrhea or change in urination. MD Complaint: generalized weakness -: hour(s) Location: generalized Severity: moderate Quality: aching Consistency: constant Improves with: none Worsens with: none Associated Symptoms: denies other symptoms - Related Data Home Medications Medication Instructions Recorded Confirmed Baclofen [Lioresal] 10 mg PO BID PRN 04/23/20 06/14/24 Dicyclomine [Bentyl] 10 mg PO QID PRN 04/23/20 06/14/24 Venlafaxine HCl ER [Effexor XR] 75 mg PO DAILY 02/07/23 06/14/24 rOPINIRole HCL [Requip] 1 mg PO QID PRN 04/12/23 06/14/24 Donepezil HCl [Aricept] 10 mg PO HS 02/11/24 06/14/24 Omeprazole [PriLOSEC] 20 mg PO HS 02/11/24 06/14/24 rOPINIRole HCL [rOPINIRole HCL ER 6 mg PO HS 02/11/24 06/14/24 (XL)] ALPRAZolam [Xanax] 0.25 mg PO HS PRN 06/14/24 06/14/24 Rizatriptan Odt [Maxalt INFORMATION SERVICES ASSISTANT] 10 mg PO DAILY PRN 06/14/24 06/14/24 Topiramate [Topamax] 50 mg PO BID 06/14/24 06/14/24 amLODIPine [Norvasc] 5 mg PO DAILY 06/14/24 06/14/24 Previous Rx's Medication Instructions Recorded Acetaminophen Tab [Tylenol] 650 mg PO Q6H #1 tab 06/16/24 predniSONE 10 mg PO DIRECTED #30 tab 06/16/24 predniSONE [Deltasone] 40 mg PO DAILY 4 Days #8 tab 09/20/24 HYDROcodone/APAP 5-325MG [Knobel 5] 1 each PO Q6HR PRN #12 tab 09/22/24 predniSONE 50 mg PO DAILY #5 tab 09/22/24 HYDROcodone/APAP 5-325MG [Knobel 1 tab PO Q8HR PRN 3 Days #12 tab 10/01/24 5-325] predniSONE 50 mg PO DAILY 5 Days #5 tab 10/01/24 Allergies Allergy/AdvReac Type Severity Reaction Status Date / Time cephalexin [From Keflex] Allergy Unknown Verified 11/04/24 05:45 etodolac [From Lodine] Allergy Rash/Hives Verified 11/04/24 05:45 nabumetone [From Relafen] Allergy Rash/Hives Verified 11/04/24 05:45 naproxen [From Naprosyn] Allergy Rash/Hives Verified 11/04/24 05:45 NSAIDS (Non-Steroidal Allergy Rash/Hives Verified 11/04/24 05:45 Anti-Inflamma Review of Systems ROS Statement: Those systems with pertinent positive or pertinent negative responses have been documented in the HPI. ROS Other: All systems not noted in ROS Statement are negative. Constitutional: Reports: weakness. Denies: fever, chills ENT: Denies: congestion Respiratory: Denies: cough, dyspnea Cardiovascular: Denies: chest pain, palpitations, edema Gastrointestinal: Denies: abdominal pain, nausea, vomiting, diarrhea Genitourinary: Denies: dysuria, hematuria Musculoskeletal: Reports: myalgia. Denies: back pain Skin: Denies: rash Neurological: Denies: headache, weakness Past Medical History Past Medical History: Cancer, CVA/TIA, GERD/Reflux, Hyperlipidemia, Osteoarthritis (OA), Pneumonia, Rheumatoid Arthritis (RA) Additional Past Medical History / Comment(s): pancreatitis, U/s and biopsy of pancreas at [facility], anemia, kidney stones/UTIs, skin cancer, migraines, RLS, generalized pain d/t RA/OA, constipation, past ileus, IBS, steriod injections started 1 week ago to back of the neck, History of Any Multi-Drug Resistant Organisms: None Reported Past Surgical History: Breast Surgery, Cholecystectomy, Hernia Repair, Joint Replacement, Orthopedic Surgery Additional Past Surgical History / Comment(s): Rotator cuff (R); Ric Knee Replacement; Panniculectomy, lizzie fundoplication/repair paraesophageal hernia, bilateral legs varicose vein surgery, colonoscopies-normal, bilateral cataract removal, FNA abdominal seroma, cystoscopy/bladder bx/lithotripsy with R ureteral stent, skin cancer removal, bilateral benign breast biopsies, bilateral feet/toe surgeries/4th R toe amp Past Anesthesia/Blood Transfusion Reactions: No Reported Reaction Additional Past Anesthesia/Blood Transfusion Reaction / Comment(s): Pt has received blood after panniculectomy without reaction. Past Psychological History: No Psychological Hx Reported Smoking Status: Never smoker Past Alcohol Use History: None Reported Past Drug Use History: None Reported - Past Family History Mother History Unknown: Yes Family Medical History: Myocardial Infarction (ID) Additional Family Medical History / Comment(s): Mother at age 69 yrs after having the flu and complicated by a ID. Father History Unknown: Yes Additional Family Medical History / Comment(s): IBS. Father at age 78yrs. General Exam General appearance: alert, in no apparent distress Head exam: Present: atraumatic, normocephalic Eye exam: Present: normal appearance. Absent: scleral icterus, conjunctival injection ENT exam: Present: normal oropharynx Neck exam: Present: normal inspection Respiratory exam: Present: normal lung sounds bilaterally. Absent: respiratory distress, wheezes, rales, rhonchi, stridor, accessory muscle use Cardiovascular Exam: Present: regular rate, normal rhythm, normal heart sounds. Absent: systolic murmur, diastolic murmur, rubs, gallop GI/Abdominal exam: Present: soft. Absent: distended, tenderness, guarding, rebound, rigid, mass Extremities exam: Present: normal inspection, normal capillary refill. Absent: pedal edema, calf tenderness Back exam: Present: normal inspection. Absent: CVA tenderness (R), CVA tenderness (L) Neurological exam: Present: alert Skin exam: Present: warm, dry, intact, normal color. Absent: rash Course Vital Signs 11/04/24 11/04/24 11/04/24 05:40 06:46 07:37 Temperature 97.9 F 98.2 F Pulse Rate 87 88 87 Respiratory 16 18 18 Rate Blood Pressure 168/74 164/70 167/71 O2 Sat by Pulse 96 96 99 Oximetry 11/04/24 09:38 Temperature 98.1 F Pulse Rate 78 Respiratory 18 Rate Blood Pressure 165/80 O2 Sat by Pulse 98 Oximetry Medical Decision Making - Medical Decision Making Was pt. sent in by a medical professional or institution (, [facility], [employer], urgent care, hospital, or retirement...) When possible be specific @ -[No] Did you speak to anyone other than the patient for history (EMS, parent, family, police, friend...)? What history was obtained from this source @ -[No] Did you review nursing and triage notes (agree or disagree)? Why? @ -[I reviewed and agree with nursing and triage notes] Were old charts reviewed (outside hosp., previous admission, EMS record, old EKG, old radiological studies, urgent care reports/EKG's, retirement records)? Report findings @ -[No old charts were reviewed] Differential Diagnosis (chest pain, altered mental status, abdominal pain women, abdominal pain men, vaginal bleeding, weakness, fever, dyspnea, syncope, headache, dizziness, GI bleed, back pain, seizure, CVA, palpatations, mental health, musculoskeletal)? @ -Differential Musculoskeletal Muscular strain, contusion, ligament sprain, fracture, arthritis, septic arthritis, bursitis, cellulitis, muscle spasm, nerve compression, DVT, arterial occlusion, herpes zoster, electrolyte abnormality, tumor.... This is not meant to be in all inclusive list EKG interpreted by me (3pts min.). @ -[As above] X-rays interpreted by me (1pt min.). @ -[None done] CT interpreted by me (1pt min.). @ -[None done] U/S interpreted by me (1pt. min.). @ -[None done] What testing was considered but not performed or refused? (CT, X-rays, U/S, labs)? Why? @ -[None] What meds were considered but not given or refused? Why? @ -[None] Did you discuss the management of the patient with other professionals (professionals i.e. [facility], [employer], lab, RT, psych nurse, social services assistant, airline ticket agent, teacher, school resource officer, case folder)? Give summary @ -[No] Was smoking cessation discussed for >3mins.? @ -[No] Was critical care preformed (if so, how long)? @ -[No] Were there social determinants of health that impacted care today? How? (Homelessness, low income, unemployed, alcoholism, drug addiction, transportation, low edu. Level, literacy, decrease access to med. care, group home, rehab)? @ -[No] Was there de-escalation of care discussed even if they declined (Discuss DNR or withdrawal of care, Hospice)? DNR status @ -[No] What co-morbidities impacted this encounter? (DM, HTN, Smoking, COPD, CAD, Cancer, CVA, ARF, Chemo, Hep., AIDS, mental health diagnosis, sleep apnea, morbid obesity)? @ -[None] Was patient admitted / discharged? Hospital course, mention meds given and route, prescriptions, significant lab abnormalities, going to OR and other pertinent info. @ -[This patient is an 84-year-old woman who is in the hospital visiting her and developed diffuse muscle aches and pains. She states that this may be attributable to spending the day in the bedside chair which is somewhat uncomfortable. The patient's workup does not reveal acute etiology, although there may be component of the patient's chronic pain. We discussed the lab findings, she was feeling better and wanted to return to her 's bedside. Discussed importance of close follow-up and also return parameters. Undiagnosed new problem with uncertain prognosis? @ -[No] Drug Therapy requiring intensive monitoring for toxicity (Heparin, Nitro, Insulin, Cardizem)? @ -[No] Were any procedures done? @ -[No] Diagnosis/symptom? @ -[Acute myalgias Acute, or Chronic, or Acute on Chronic? @ -[Acute Uncomplicated (without systemic symptoms) or Complicated (systemic symptoms)? @ -[Uncomplicated Side effects of treatment? @ -[No] Exacerbation, Progression, or Severe Exacerbation? @ -[No] Poses a threat to life or bodily function? How? (Chest pain, USA, ID, pneumonia, PE, COPD, DKA, ARF, appy, cholecystitis, CVA, Diverticulitis, Homicidal, Suicidal, threat to staff... and all critical care pts) @ -[No] All treatments are based on ideal body weight as in ED triage - Lab Data Result diagrams: 11/04/24 06:04 11/04/24 06:04 Lab Results 11/04/24 11/04/24 11/04/24 Range/Units 06:04 06:04 06:04 WBC 8.2 (3.8-10.6) k/uL RBC 4.64 (3.80-5.40) m/uL Hgb 13.9 (11.4-16.0) gm/dL Hct 45.2 (34.0-46.0) % MCV 97.4 (80.0-100.0) fL MCH 29.8 (25.0-35.0) pg MCHC 30.6 L (31.0-37.0) g/dL RDW 12.5 (11.5-15.5) % Plt Count 195 (150-450) k/uL MPV 7.0 Neutrophils % 70 % Lymphocytes % 17 % Monocytes % 8 % Eosinophils % 1 % Basophils % 0 % Neutrophils # 5.8 (1.3-7.7) k/uL Lymphocytes # 1.4 (1.0-4.8) k/uL Monocytes # 0.7 (0-1.0) k/uL Eosinophils # 0.1 (0-0.7) k/uL Basophils # 0.0 (0-0.2) k/uL Sodium 139 (137-145) mmol/L Potassium 3.8 (3.5-5.1) mmol/L Chloride 105 (98-107) mmol/L Carbon Dioxide 27 (22-30) mmol/L Anion Gap 7 mmol/L BUN 27 H (7-17) mg/dL Creatinine 0.88 (0.52-1.04) mg/dL Est GFR (CKD-EPI)AfAm 71 (>60 ml/min/1.73 sqM) Est GFR (CKD-EPI)NonAf 61 (>60 ml/min/1.73 sqM) Glucose 115 H (74-99) mg/dL Plasma Lactic Acid Hebert 0.9 (0.7-2.0) mmol/L Calcium 9.2 (8.4-10.2) mg/dL Total Bilirubin 0.8 (0.2-1.3) mg/dL AST 17 (14-36) U/L ALT 12 (4-34) U/L Alkaline Phosphatase 73 (38-126) U/L Total Protein 6.2 L (6.3-8.2) g/dL Albumin 3.6 (3.5-5.0) g/dL Urine Color Urine Appearance (Clear) Urine pH (5.0-8.0) Ur Specific Duc[place]ne (1.001-1.035) Urine Protein (Negative) Urine Glucose (UA) (Negative) Urine Ketones (Negative) Urine Blood (Negative) Urine Nitrite (Negative) Urine Bilirubin (Negative) Urine Urobilinogen (<2.0) mg/dL Ur Leukocyte Esterase (Negative) Urine RBC (0-5) /hpf Urine WBC (0-5) /hpf Ur Squamous Epith Cells (0-4) /hpf Amorphous Sediment (None) /hpf Urine Mucus (None) /hpf Influenza Type A (PCR) (Not Detectd) Influenza Type B (PCR) (Not Detectd) RSV (PCR) (Not Detectd) SARS-CoV-2 (PCR) (Not Detectd) 11/04/24 11/04/24 Range/Units 06:04 07:27 WBC (3.8-10.6) k/uL RBC (3.80-5.40) m/uL Hgb (11.4-16.0) gm/dL Hct (34.0-46.0) % MCV (80.0-100.0) fL MCH (25.0-35.0) pg MCHC (31.0-37.0) g/dL RDW (11.5-15.5) % Plt Count (150-450) k/uL MPV Neutrophils % % Lymphocytes % % Monocytes % % Eosinophils % % Basophils % % Neutrophils # (1.3-7.7) k/uL Lymphocytes # (1.0-4.8) k/uL Monocytes # (0-1.0) k/uL Eosinophils # (0-0.7) k/uL Basophils # (0-0.2) k/uL Sodium (137-145) mmol/L Potassium (3.5-5.1) mmol/L Chloride (98-107) mmol/L Carbon Dioxide (22-30) mmol/L Anion Gap mmol/L BUN (7-17) mg/dL Creatinine (0.52-1.04) mg/dL Est GFR (CKD-EPI)AfAm (>60 ml/min/1.73 sqM) Est GFR (CKD-EPI)NonAf (>60 ml/min/1.73 sqM) Glucose (74-99) mg/dL Plasma Lactic Acid Hebert (0.7-2.0) mmol/L Calcium (8.4-10.2) mg/dL Total Bilirubin (0.2-1.3) mg/dL AST (14-36) U/L ALT (4-34) U/L Alkaline Phosphatase (38-126) U/L Total Protein (6.3-8.2) g/dL Albumin (3.5-5.0) g/dL Urine Color Light Yellow Urine Appearance Clear (Clear) Urine pH 6.0 (5.0-8.0) Ur Specific [place] 1.023 (1.001-1.035) Urine Protein 1+ H (Negative) Urine Glucose (UA) Negative (Negative) Urine Ketones Negative (Negative) Urine Blood Large H (Negative) Urine Nitrite Negative (Negative) Urine Bilirubin Negative (Negative) Urine Urobilinogen <2.0 (<2.0) mg/dL Ur Leukocyte Esterase Small H (Negative) Urine RBC 116 H (0-5) /hpf Urine WBC 6 H (0-5) /hpf Ur Squamous Epith Cells <1 (0-4) /hpf Amorphous Sediment Rare H (None) /hpf Urine Mucus Rare H (None) /hpf Influenza Type A (PCR) Not Detected (Not Detectd) Influenza Type B (PCR) Not Detected (Not Detectd) RSV (PCR) Not Detected (Not Detectd) SARS-CoV-2 (PCR) Not Detected (Not Detectd) Disposition Clinical Impression: Myalgia and myositis Disposition: HOME SELF-CARE Condition: Good Instructions (If sedation given, give patient instructions): Musculoskeletal Pain (ED) Is patient prescribed a controlled substance at d/c from ED?: No Referrals: Jh Garcia DO [Primary Care Provider] - 1-2 days
[2024-11-04 06:21] LABS: Basophils % (A) 0 %; Eosinophils # (A) 0.1 k/uL (0-0.7); Eosinophils % (A) 1 %; HCT 45.2 % (34.0-46.0); HGB 13.9 gm/dL (11.4-16.0); Lymphocytes # (A) 1.4 k/uL (1.0-4.8); Lymphocytes % (A) 17 %; MCH 29.8 pg (25.0-35.0); MCHC 30.6 g/dL (31.0-37.0); MCV 97.4 fL (80.0-100.0); Monocytes # (A) 0.7 k/uL (0-1.0); Monocytes % (A) 8 %; Neutrophils # (A) 5.8 k/uL (1.3-7.7); Neutrophils % (A) 70 %; Platelet Count 195 k/uL (150-450); RBC 4.64 m/uL (3.80-5.40); RDW 12.5 % (11.5-15.5); WBC 8.2 k/uL (3.8-10.6)
[2024-11-04 06:49] VITALS: RESP 18
[2024-11-04 06:50] LABS: ALT 12 U/L (4-34); AST 17 U/L (14-36); African American GFR (CKD) 71 (>60 ml/min/1.73 sqM); Albumin 3.6 g/dL (3.5-5.0); Alkaline Phosphatase 73 U/L (38-126); Anion Gap 7 mmol/L; Blood Urea Nitrogen 27 mg/dL (7-17); Calcium 9.2 mg/dL (8.4-10.2); Carbon Dioxide 27 mmol/L (22-30); Chloride 105 mmol/L (98-107); Glucose 115 mg/dL (74-99); Non-African American GFR(CKD) 61 (>60 ml/min/1.73 sqM); Potassium 3.8 mmol/L (3.5-5.1); Sodium 139 mmol/L (137-145); Total Bilirubin 0.8 mg/dL (0.2-1.3); Total Protein 6.2 g/dL (6.3-8.2)
[2024-11-04 07:28] LABS: Influenza A Not Detected (Not Detectd); Influenza B Not Detected (Not Detectd); RSV Not Detected (Not Detectd)
[2024-11-04] MEDS: SODIUM CHLORIDE 0.9% 500 ML 500 ML IV STA (07:40)
[2024-11-04 07:48] LABS: Amorphous Sediment,Urine Rare /hpf; Appearance,Urine Clear (Clear); Bilirubin,Urine Negative (Negative); Blood,Urine Large (Negative); Color,Urine Light Yellow; Glucose,Urine (UA) Negative (Negative); Ketones,Urine Negative (Negative); Leukocyte Esterase,Urine Small (Negative); Mucus,Urine Rare /hpf; Nitrite,Urine Negative (Negative); Protein,Urine 1+ (Negative); RBC,Urine 116 /hpf (0-5); Specific Gravity,Urine 1.023 (1.001-1.035); Squamous Epithelial Cell,Urine <1 /hpf (0-4); Urobilinogen,Urine <2.0 mg/dL (<2.0); WBC,Urine 6 /hpf (0-5)
[2024-11-04] MEDS: Acetaminophen-Codeine 300-30mg TAB PO STA (08:02)
[2024-11-04 09:39] VITALS: BP 165/80; PULSE 78; TEMP 98.1
== END 2024-11-04 09:39 | disposition home or self-care (01) ==
LOC: EC 05:39
DX: M60.9 Myositis, unspecified (principal)
CPT/HCPCS: 36415; 80053; 81001; 83605; 85025; 87636; 99285